=== PATIENT | male | born 1940 | race Caucasian/White ===

== ENCOUNTER 2023-01-21 08:21 | Outpatient (OUT) | payer MEDICARE, BC, SELFPAY ==
[2023-01-21 10:38] LABS: Prostate Specific Antigen Dx 0.34 ng/mL (<=4.00)
== END 2023-01-21 08:22 | disposition home or self-care (01) ==
LOC: LAB 08:27
PROVIDERS: PCP Family Medicine
DX: N40.1 Benign prostatic hyperplasia with lower urinary tract symptoms (principal)
CPT/HCPCS: 36415; 84153

== ENCOUNTER 2023-06-29 22:27 | Emergency (ER) | payer MEDICARE, BC, SELFPAY ==
[2023-06-29 22:30] VITALS: BP 157/80; PULSE 73; RESP 20; TEMP 36.6; O2SAT 93; BMI 28.6
[2023-06-29] MEDS: ADACEL DIPH,PERTUSS(ACELL),TET VAC/PF 0.5 ML ADULT SYRINGE IM (23:16)
[2023-06-29] MEDS: LIDOCAINE HCL 1% 100 MG/10 ML MDV 20 ML INJ (23:17)
--- NOTE | 2023-06-29 23:22 | ED_ITS ---
HPI - Wound/Laceration General Chief Complaint: Wound/Laceration Stated Complaint: Laceration Left Leg Time Seen by Provider: 06/29/23 22:31 Source: patient Mode of arrival: walk-in Limitations: no limitations History of Present Illness HPI narrative: 82-year-old male presents for lacerations to the posterior left thigh sustained on a sharp edge of sheet metal. This happened an hour and a half ago. There is bleeding that was controlled with pressure and dressings were applied and home and he was brought here. His last tetanus shot was more than ten years ago. No other wound was sustained. Related Data Previous Rx's Medication Instructions Recorded cephalexin 500 mg capsule 500 mg PO TID 7 days #21 caps 06/29/23 Allergies Allergy/AdvReac Type Severity Reaction Status Date / Time Sulfa (Sulfonamide Allergy Intermediate Verified 06/29/23 22:35 Antibiotics) Review of Systems ROS Narrative A ten point review of systems is negative except as noted above. Exam Narrative Exam Narrative: Nurses note and vital signs reviewed and patient is not hypoxic. General: The patient appears well and in no apparent distress. Skin: Warm, dry, no pallor noted. There is no rash noted. Head: Normocephalic, atraumatic Eye: Normal conjunctiva, no drainage Ears, Nose, Mouth, and Throat: oral mucosa is moist. Nares patent. Cardiovascular: not tachycardic Respiratory: Patient is in no distress, no accessory muscle use Back: non-tender GI: nontender Musculoskeletal: left middle finger has superficial abrasion on the finger pad. Left posterior thigh shows two lacerations each 10 cm in length. The more superior one is quite superficial and does not require sutures and is 10 cm in l ength. Parallel to it, and just distal, is another 10 cm laceration of which the lateral 6 cm is gaping and requires closure. Neurological: A&O, normal speech; he has frequent movements from Parkinson's Psychiatric: Cooperative Constitutional Vital Signs, click to edit/add: Last Vital Signs Temp 98 F 06/29/23 22:30 Pulse 73 06/29/23 22:30 Resp 20 06/29/23 22:30 BP 157/80 H 06/29/23 22:30 Pulse Ox 93 L 06/29/23 22:30 Course Vital Signs Vital signs: Vital Signs Temperature 98 F 06/29/23 22:30 Pulse Rate 73 06/29/23 22:30 Respiratory Rate 20 06/29/23 22:30 Blood Pressure 157/80 H 06/29/23 22:30 Pulse Oximetry 93 L 06/29/23 22:30 Temperature 98 F 06/29/23 22:30 Pulse Rate 73 06/29/23 22:30 Respiratory Rate 20 06/29/23 22:30 Blood Pressure 157/80 H 06/29/23 22:30 Pulse Oximetry 93 L 06/29/23 22:30 MDM - Wound/Laceration MDM Narrative Medical decision making narrative: He was advised to have a wound check later this week and sutures out in 7-10 days. He is placed on a course of prophylactic Keflex because of the location. Tetanus is also updated. Treatment diagnosis and follow-up were discussed with the patient and his family. Differential Diagnosis Differential diagnosis: Likely laceration Discharge Plan Discharge Chief Complaint: Wound/Laceration Clinical Impression: Laceration Patient Disposition: Home, Self-Care Time of Disposition Decision: 23:20 Condition: Good Mode of Transportation: Private Vehicle Prescriptions / Home Meds: New cephalexin 500 mg capsule 500 mg PO TID 7 Days Qty: 21 0RF Instructions: Care For Your Stitches (ED), Laceration (ED) Additional Instructions: Wound check this week from her PCP. Stitches out in 7-10 days. Stand Alone Forms: Portal Instructions Referrals: RAUL DUMONT [Primary Care Provider] - 1 week Procedures ED Procedure Instructions Procedures Procedures: the following procedure was performed by me. The laceration was locally infiltrated with one percent lidocaine without epinephrine resulting in complete skin anesthesia. The area was prepped with Betadine ?3 and draped sterilely. It was explored for foreign bodies normal found and then closed with seven 3-0 Ethilon sutures resulting in good skin reapproximation and good hemostasis. No complications and he tolerated the procedure well.
--- NOTE | 2023-06-29 23:31 | PC.NURSE ---
Wound cleansed and dressing applied. Discussed discharge paperwork with pt and family. All questions answered. Script sent to pharmacy. Supplies provided to pt. Pt ambulated off unit in stable condition.
[2023-06-29] MEDS: BACITRACIN 0.9 GM PACKET 1 PACKET TOPICAL (23:35)
== END 2023-06-29 23:37 | disposition home or self-care (01) ==
PROVIDERS: Emergency Provider Emergency Medicine; PCP Family Medicine
DX: S71.112A Laceration without foreign body, left thigh, initial encounter (principal); Z23 Encounter for immunization; W26.8XXA Contact with other sharp object(s), not elsewhere classified, initial encounter
CPT/HCPCS: 12002; 90471; 90715; 99283

== ENCOUNTER 2024-01-17 14:46 | Outpatient (OUT) | payer MEDICARE, BC, SELFPAY ==
[2024-01-17 15:47] LABS: Prostate Specific Antigen Dx 0.24 ng/mL (<=4.00)
== END 2024-01-17 14:47 | disposition home or self-care (01) ==
LOC: LAB 14:48
PROVIDERS: PCP Family Medicine; Visit Provider Physician Assistant
DX: N40.1 Benign prostatic hyperplasia with lower urinary tract symptoms (principal)
CPT/HCPCS: 36415; 84153

== ENCOUNTER 2024-02-04 20:30 | Emergency (ER) | payer MEDICARE, BC, SELFPAY ==
--- NOTE | 2024-02-04 20:20 | ECG_ITS ---
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
--- OUTSIDE RECORDS SUMMARY | 2024-02-04 20:37 | XMS_ITS | CCD ---
Author Organization [facility] Care Team Providers Care [employer] Officer Name Role Phone Raul Dumont DO Primary Care Provider Floyd Spaulding MD Unavailable [phone] JULIA, DR RAUL Uribe Primary Care Unavailable BENEJEANNECT, DR WINN Admitting Unavailable BENEDICT, DR WINN Consulting Unavailable BENEDICT, DR WINN Attending Unavailable RICE, DR OSMEL Mccray Attending Unavailable JULIA, DR RAUL Uribe Primary Care Unavailable RICE, DR OSMEL Mccray Admitting Unavailable RICE, DR OSMEL Mccray Consulting Unavailable DO Raul Dumont Primary Care Provider MD Raghav Hubbard Attending Provider Raul Dumont DO Primary Care Provider Floyd Spaulding MD Unavailable [phone] Raul DUMONT Primary Care Physician Raul Dumont DO Primary Care Provider Floyd Spaulding MD Unavailable [phone] Savanna Zhang MD Unavailable Brain Nieves MD Unavailable Kostas Philip DO Unavailable Floyd Spaulding MD Unavailable Savanna Zhang MD Unavailable Brain Nieves MD Unavailable Raul DUMONT Primary Care Physician Lisa Archibald Unavailable Raul Dumont DO Primary Care Provider Clara Cobian Unavailable Floyd Spaulding MD Unavailable Nura FAUSTIN, Savanna Unavailable Julia MOROCHO Raul S Primary Care Provider FLOYD SPAULDING Referring Unavailable FLOYD SPAULDING Attending Unavailable JULIA, RAUL S Primary Care Unavailable JUNE, CHAITANYA Attending Unavailable SELF Referring Unavailable JULIA, RAUL S Primary Care Unavailable JUNE, CHAITANYA Attending Unavailable JULIA, RAUL S Primary Care Unavailable NIEVES, BRAIN Attending Unavailable NIEVES, BRAIN Admitting Unavailable JULIA, RAUL S Primary Care Unavailable NEIVES, BRAIN Referring Unavailable JUNE, CHAITANYA Attending Unavailable JULIA, RAUL S Primary Care Unavailable JUNE, TOMMYER Referring Unavailable JUNE, CHAITANYA Attending Unavailable JULIA, RAUL S Primary Care Unavailable JUNE, CHAITANYA Referring Unavailable JULIA, RAUL S Primary Care Unavailable NIEVES, BRAIN Attending Unavailable NIEVES, BRAIN Referring Unavailable NIEVES, BRAIN Admitting Unavailable JULIA, RAUL S Primary Care Unavailable NIEVES, BRAIN Attending Unavailable NIEVES, BRAIN Referring Unavailable NIEVES, BRAIN Admitting Unavailable JULIA, RAUL S Primary Care Unavailable NIEVES, BRAIN Attending Unavailable NIEVES, BRAIN Referring Unavailable NIEVES, BRAIN Admitting Unavailable JULIA, RAUL S Primary Care Unavailable JULIA, RAUL S Primary Care Unavailable MARY JO OLVERA Attending Unavailable NIEVES, BRAIN Attending Unavailable JULIA, RAUL S Primary Care Unavailable NIEVES, BRAIN Admitting Unavailable NIEVES, BRAIN Referring Unavailable NIEVES, BRAIN Referring Unavailable NIEVES, BRAIN Attending Unavailable JULIA, RAUL S Primary Care Unavailable NIEVES, BRAIN Admitting Unavailable JULIA, RAUL S Primary Care Unavailable KOSTAS PHILIP Attending Unavailable KOSTAS PHILIP Admitting Unavailable NIEVES, BRAIN Attending Unavailable NIEVES, BRAIN Admitting Unavailable NIEVES, BRAIN Referring Unavailable JULIA, RAUL S Primary Care Unavailable NIEVES, BRAIN Attending Unavailable NIEVES, BRAIN Referring Unavailable NIEVES, BRAIN Admitting Unavailable JULIA, RAUL S Primary Care Unavailable NIEVES, BRAIN Referring Unavailable JULIA, RAUL S Primary Care Unavailable NIEVES, BRAIN Attending Unavailable NIEVES, BRAIN Referring Unavailable NIEVES, BRAIN Admitting Unavailable JULIA, RAUL S Primary Care Unavailable NIEVES, BRAIN Attending Unavailable NIEVES, BRAIN Referring Unavailable NIEVES, BRAIN Admitting Unavailable JULIA, RAUL S Primary Care Unavailable NIEVES, BRAIN Attending Unavailable BRAIN NIEVES Admitting Unavailable JULIA, RAUL S Primary Care Unavailable BRAIN NIEVES Referring Unavailable CHAITANYA WATKINS Attending Unavailable JULIA, RAUL S Primary Care Unavailable JULIA, RAUL S Primary Care Unavailable FLOYD SPAULDING Referring Unavailable FLOYD SPAULDING Attending Unavailable BRAIN NIEVES Attending Unavailable SAVANNA ZHANG Referring Unavailable SILVIA, BRAIN Admitting Unavailable JULIA, RAUL S Primary Care Unavailable CHAITANYA WATKINS Referring Unavailable JULIA, RAUL S Primary Care Unavailable BARBARA WARNER Attending Unavailable HUGO SOLANO Referring Unavailable JULIA, RAUL S Primary Care Unavailable JULIA, RAUL S Referring Unavailable JULIA, RAUL S Primary Care Unavailable Jh Rosario Attending Unavailable JULIA, Raul Uribe Attending Unavailable MP MARTINEZ Attending Unavailable Osmel GARCIA Attending Unavailable CHANTEL, IVONNE Hernandez Attending Unavailable CHANTEL, IVONNE Hernandez Attending Unavailable HAYDEN, PARADISE Lentz Attending Unavailable DELBERT HAWKINS Attending Unavailab le JULIA, RAUL Referring Unavailable PETMARY, PARADISE Lentz Attending Unavailable Allergies Allergy Classification Reported Allergen(s) Allergy Type Date of Onset Reaction(s) Facility (20 sources) Grass pollen; Translations: [GRASS POLLEN] Drug Allergy 7 Unknown [facility] (20 sources) Mometasone; Translations: [MOMETASONE] Drug Allergy 4 Other: See Comments [facility] Work Phone: (20 sources) predniSONE; Translations: [prednisone] Drug Allergy 3 Mental Status Change [facility] (20 sources) Sulfonamides (Antibiotic); Translations: [SULFA (SULFONAMIDE ANTIBIOTICS)] Drug Allergy 6 Unknown [facility] Work Phone: (1 source) Sulfonamides (Antibiotic) Drug allergy (disorder) 7 [facility] (6 sources) Sulfamethoxazole; Translations: [sulfamethoxazole ] Drug Allergy [facility] Medications Current Medications Medication Drug Class(es) Dates Sig (Normalized) Sig (Original) acetaminophen 325 mg oral tablet (20 sources) Start: 12-09-2022 take 2 tablets by mouth every four hours as needed acetaminophen (TYLENOL) 325 mg tablet Take 2 tablets by mouth every 4 hours as needed (post-op pain). 0 12/09/2022 Active Start: 06-25-2020 End: 12-03-2022 take 2 tablets by mouth every six hours as needed acetaminophen (TYLENOL EXTRA STRENGTH) 500 mg tablet Take 2 tablets by mouth every 6 hours as needed for Pain. 0 06/25/2020 12/03/2022 Discontinued (Course of therapy completed) Comment on above: Take 2 tablets by mo uth every 6 hours as needed for Pain. Take 2 tablets by mo uth every 4 hours as needed (post-op pain). Ascorbic Acid / Bioflavonoids (20 sources) Vitamin C ascorbic acid/bioflavonoids (MONIQUE C ORAL) Take by mouth once daily. 0 Active Comment on above: Take by mouth once d aily. atorvastatin 10 mg oral tablet (20 sources) HMG-CoA Reductase Inhibitor Start: 7 End: take 1 tablet by mouth once daily atorvastatin (LIPITOR) 10 mg tablet TAKE 1 TABLET BY MOUTH EVERY DAY 90 tablet 3 10/06/2022 Active Start: 03-14-2010 take 20 mg by mouth once daily at bedtime Lipitor 20 mg, Oral, Once a day (at bedtime), Refills(s) 0, High cholesterol Start Date: 03/14/10 Status: Ordered Comment on above: TAKE 1 TABLET EVERY DAY TAKE 1 TABLET BY TASHA EVERY DAY Back Brace (2 sources) Start: 01-24-20 20 Back Brace Back Brace, See Instructions, 1 EA, 0, For wear while exercising and working to improve ability to work and be acive thus improving quality of life. Lenght of need is lifetime., Supply Start Date: 01/24/20 Status: Ordered carbidopa 10 mg / levodopa 100 mg oral tablet (1 source) Aromatic Amino Acid Decarboxylation Inhibitor, Aromatic Amino Acid Start: 11-04-19 24 take 1 tablet by mouth three times daily Carbidopa-Levodopa Active 1 TAB PO Three times daily November 04, 2023 12:00am celecoxib 200 mg oral capsule (1 source) Nonsteroidal Anti-inflammatory Drug Start: 11-04-19 24 take 200 mg by mouth once daily Celecoxib Active 200 MG PO Daily November 04, 2023 12:00am clotrimazole 10 mg/ml topical cream (4 sources) Azole Antifungal Start: 10-22-19 clotrimazole Top 1% Crm 1 dale, Topical, BID, 24 gram, Refill(s) 1, [facility]/pharmacy #[id number], 178, cm, 10/21/22 10:47:00 EDT, Height/Length Dosing, 91.4, kg, 10/21/22 10:47:00 EDT, Weight Dosing Start Date: 10/21/22 Status: Ordered Start: 07-20-2022 clotrimazole T op 1% Crm 1 dale, Topical, BID, 24 gram, Refill(s) 1, [facility]/pharmacy #[id number], 178, cm, 07/20/22 14:05:00 EST, Height/Length Dosing, 91.3, kg, 07/20/22 14:05:00 EST, Weight Dosing Start Date: 07/20/22 Status: Ordered Co Q-10 (5 sources) Start: 10-20-2018 take 1 tablet by mouth once daily Co Q-10 See Instructions, 1 tab po daily, Refills(s) 0 Start Date: 10/20/18 Status: Ordered diclofenac sodium 0.01 mg/mg topical gel (1 source) Nonsteroidal Anti-inflammatory Drug Start: 11-04-2023 Diclofenac Sodium Active TOPICAL November 04, 2023 12:00am docusate sodium 100 mg oral capsule (16 sources) Start: 12-16-2022 take 1 capsule by mouth every twelve hours as needed docusate sodium (COLACE) 100 mg capsule Take 1 capsule by mouth twice daily as needed for constipation. 0 12/16/2022 Active Comment on above: Take [address] [facility] twice daily as needed for constipation. escitalopram 10 mg oral tablet (20 sources) Serotonin Reuptake Inhibitor Start: 11-04-2023 take 10 mg by mouth once daily Escitalopram Oxalate Active 10 MG PO Daily November 04, 2023 12:00am Start: 02-12-2020 take 1 tablet by tasha once daily escitalopram oxalate (LEXAPRO) 5 mg tablet TAKE 1 TABLET BY MOUTH ONE TIME A DAY 0 02/12/2020 Active Comment on above: TAKE 1 TABLET BY TASHA ONE TIME A DAY finasteride 5 mg oral tablet (20 sources) 5-alpha Reductase Inhibitor Start: 0 finasteride (PROSCAR) 5 mg tablet furosemide 20 mg oral tablet (18 sources) Loop Diuretic Start: 3 End: 3 take 1 tablet by mouth once daily furosemide (LASIX) 20 mg tablet Take 1 tablet by mouth once daily for 7 days. 7 tablet 0 12/09/2022 Active Comment on above: Take 1 tablet by tasha once daily for 7 days. gabapentin 300 mg oral capsule (1 source) Anti-epileptic Agent Start: 4 take 300 mg by mouth once daily at bedtime Gabapentin Active 300 MG PO Daily at bedtime November 04, 2023 12:00am losartan potassium 25 mg oral tablet (20 sources) Angiotensin 2 Receptor Demario Start: 9 take 25 mg by mouth once daily Losartan Active 25 MG PO Daily July 11, 2018 1:00am Comment on above: Take 25 mg by mouth once daily. lysine 500 mg oral tablet (20 sources) lysine 500 mg ta b Take by mouth. 0 Active Comment on above: Take by mouth. melatonin 5 mg oral tablet (5 sources) Start: 3 take 1 tablet by mouth once daily at bedtime melatonin 5 mg oral tablet 5 mg = 1 tab(s), Oral, Once a day (at bedtime), # 90 tab(s), Refills(s) 1, Pharmacy: [facility]/pharmacy #[id number], 178, cm, 10/21/22 10:47:00 EDT, Height/Length Dosing, 91.4, kg, 10/21/22 10:47:00 EDT, Weight Dosing Start Date: 10/28/22 Status: Ordered Start: 04-22-2022 Melatonin 20 m g, Once a day (at bedtime), Refills(s) 0 Start Date: 04/22/22 Status: Ordered memantine hydrochloride 5 mg oral tablet (1 source) X-uysseh-A-aspartate Receptor Antagonist Start: 11-04-2023 take 5 mg by mouth twice daily Memantine Active 5 MG PO Twice daily November 04, 2023 12:00am 24 hr metoprolol succinate 25 mg extended release oral tablet (20 sources) beta-Adrenergic Demario Start: 11-04-2023 Metoprolol Succinate Active MG PO November 04, 2023 12:00am Start: 01-25-2023 End: 07-08-2023 take 1 tablet by mouth once daily metoprolol succinate ER (TOPROL XL) 25 mg 24 hr tablet Take 1 tablet by mouth once daily. 90 tablet 3 07/08/2023 Active Start: 01-14-2023 take 1 tablet by tasha th once daily metoprolol succinate ER (TOPROL XL) 25 mg 24 hr tablet Take 1 tablet by mouth once daily. 90 tablet 1 01/14/2023 Active Start: 12-09-2022 End: 01-14-2023 take 1 tablet by mouth twice daily metoprolol succinate ER (TOPROL XL) 50 mg 24 hr tablet Take 1 tablet by mouth twice daily. 60 tablet 1 12/09/2022 01/14/2023 Discontinued Comment on above: Take 1 tablet by tasha th twice daily. Take 1 tablet by tasha th once daily. Take [address] [facility] once daily. MULTIVITAMIN ORAL (20 sources) MULTIVITAMIN ORA L Take by mouth once daily. 0 Active Comment on above: Take by mouth once d aily. pantoprazole 40 mg delayed release oral tablet (20 sources) Proton Pump Inhibitor Start: 11-04-2023 Pantoprazole Active MG PO November 04, 2023 12:00am Start: 07-05-2017 take 1 tablet by tasha th once daily pantoprazole DR (PROTONIX) 40 mg tablet Indications: gastroesophageal reflux disease Take 1 tablet by mouth once daily. 30 tablet 5 07/05/2017 Active Comment on above: Take 1 tablet by tasha th once daily. QUEtiapine 25 mg oral tablet (1 source) Atypical Antipsychotic Start: 11-04-19 24 take 25 mg by mouth twice daily Quetiapine Active 25 MG PO Twice daily November 04, 2023 12:00am rivaroxaban 20 mg oral tablet (20 sources) Factor Xa Inhibitor Start: 02-11-20 17 take 1 tablet by mouth once daily rivaroxaban (XARELTO) 20 mg tablet Take 1 tablet by mouth once daily. 90 tablet 3 06/10/2023 Active Comment on above: TAKE 1 TABLET BY TASHA TH ONCE DAILY. PLEASE CALL THE OFFICE FOR AN APPOINTMENT. Take 1 tablet by tasha th once daily. UBIDECARENONE (CO Q-10 ORAL) (20 sources) UBIDECARENONE (C O Q-10 ORAL) Take by mouth. Patient unsure of dosage Chews two gummies a day 0 Active Comment on above: Take by mouth. Patie nt unsure of dosage Chews two gummies a day Vitamin E Acetate, Bulk, 125 unit/mL liqd (20 sources) Vitamin E Acetat e, Bulk, 125 unit/mL liqd Completed/Discontinued Medications Medication Drug Class(es) Dates Sig (Normalized) Sig (Original) amoxicillin 875 mg / clavulanate 125 mg oral tablet (2 sources) Penicillin-class Antibacterial Start: 11-03-2020 take 1 tablet by mouth every twelve hours Amoxicillin-Pot Clavulanate 875-125 MG 1 tablet Orally every 12 hrs for 10 day(s) October, Not-Taking/PRN aspirin 81 mg chewable tablet (6 sources) Platelet Aggregation Inhibitor, Nonsteroidal Anti-inflammatory Drug Start: 12-10-2022 End: 01-14-2023 take 1 tablet by mouth once daily aspirin 81 mg chewable tablet Take 1 tablet by mouth once daily. 90 tablet 0 12/10/2022 01/14/2023 Discontinued Comment on above: Take 1 tablet by tasha once daily. docusate sodium 50 mg / sennosides, alf 8.6 mg oral tablet (6 sources) Start: 12-09-2022 End: 01-14-2023 take 1 tablet by mouth twice daily as needed for constipation senna-docusate (SENNA-S) 8.6-50 mg per tablet Take 1 tablet by mouth twice daily. Continue while as needed thereafter for mild post-op constipation & stool softening. 28 tablet 0 12/09/2022 01/14/2023 Discontinued Comment on above: Take 1 tablet by tasha twice daily. Continue while as needed thereafter for mild post-op constipation & stool softening. fluticasone propionate 0.05 mg/actuat metered dose nasal spray (2 sources) Corticosteroid Start: 11-03-2020 take 1 spray(s) nasal route once daily as needed Fluticasone Propionate 50 MCG/ACT 1 spray in each nostril Nasally Once a day for 30 day(s) October, Not-Taking/PRN Start: 11-03-2020 take 1 spray(s) nasa l route once daily Fluticasone Propionate 50 MCG/ACT 1 spray in each nostril Nasally Once a day for 30 day(s) October, Not-Taking Fluticasone Furoate-Vilanterol (2 sources) Corticosteroid, beta2-Adrenergic Agonist Start: 02-10-2017 End: 07-23-2018 take 1 puff(s) by inhalation once daily Fluticasone Furoate-Vilanterol (Breo Ellipta) 200-25 mcg/dose blister with device Discontinued 1 PUFF INHALATION Daily February 10, 2017 12:00am July 23, 2018 11:55pm mag [id number] rt xt 500-3,000-150 mg-unit-mg tab (18 sources) End: 01-14-2023 mag [id number] rt xt 500-3,000-150 mg-unit-mg tab Take by mouth. 0 01/14/2023 Discontinued mag [id number] meric rt xt 500-3,000-150 mg-unit-mg tab Take by mouth. 0 Active Comment on above: Take by mouth. magnesium hydroxide 80 mg/ml oral suspension (3 sources) Start: 12-17-19 End: 01-15-20 take 30 mL by mouth once daily as needed magnesium hydroxide (MOM) 400 mg/5 mL suspension Take 30 mL by mouth once daily as needed. 0 12/16/2022 01/14/2023 Discontinued Comment on above: Take 30 mL by mouth once daily as needed. metaxalone 800 mg oral tablet (2 sources) Start: 07-11-19 End: 07-23-19 19 take 1 tablet by mouth three times daily Metaxalone (Skelaxin) 800 mg Tablet Discontinued 800 MG PO Three times daily July 11, 2018 1:00am July 23, 2018 11:54pm montelukast 10 mg oral tablet (2 sources) Leukotriene Receptor Antagonist Start: 02-11-20 End: 07-11-19 19 take 1 tablet by mouth once daily Montelukast Discontinued 1 TAB PO Daily February 10, 2017 12:00am July 11, 2018 5:39am mupirocin 0.02 mg/mg topical ointment (1 source) RNA Synthetase Inhibitor Antibacterial Start: 12-04-19 mupirocin (BACTROBAN) 2 % ointment Apply a small amount in each nostril using a cotton swab twice the day before surgery and once the morning of surgery. 22 g 0 12/03/2022 Active Comment on above: Apply a small amount in each nostril using a cotton swab twice the day before surgery and once the morning of surgery. perflutren lipid microspheres 1.3 mL in NaCl (PF) 0.9% 10 mL injection (DEFINITY) (20 sources) Start: 04-02-20 End: 12-04-19 perflutren lipid microspheres 1.3 mL in NaCl (PF) 0.9% 10 mL injection (DEFINITY) Start: 04-02-2022 End: 07-02-2023 perflutren lipid microsphere s 1.3 mL in NaCl (PF) 0.9% 10 mL injection (DEFINITY) Start: 02-16-2022 End: 12-03-2022 perflutren lipid microsphere s 1.3 mL in NaCl (PF) 0.9% 10 mL injection (DEFINITY) Start: 02-16-2022 End: 05-18-2023 perflutren lipid microsphere s 1.3 mL in NaCl (PF) 0.9% 10 mL injection (DEFINITY) Start: 02-04-2021 End: 05-06-2022 perflutren lipid microsphere s 1.3 mL in NaCl (PF) 0.9% 10 mL injection (DEFINITY) polyethylene glycol 3350 99022 mg powder for oral solution (9 sources) Osmotic Laxative Start: 12-16-2022 polyethylene glycol 3350 (MIRALAX) 17 gram/dose powder Take 17 g by mouth once daily. Dissolve dose in 4 - 8 ounces of liquid and take as directed. 0 12/16/2022 Active Comment on above: Take 17 g by mouth o nce daily. Dissolve dose in 4 - 8 ounces of liquid and take as directed. potassium chloride 10 meq extended release oral tablet (4 sources) Start: 12-09-2022 End: 12-16-2022 take 1 tablet by mouth once daily potassium chloride (K-TAB) 10 mEq tablet Take 1 tablet by mouth once daily for 7 days. 7 tablet 0 12/09/2022 12/16/2022 Comment on above: Take 1 tablet by [facility] once daily for 7 days. 125 ml sodium chloride 9 mg/ml prefilled syringe (20 sources) Start: 02-04-2021 End: 10-05-2023 sodium chloride 0.9 %, flush, (BD POSIFLUSH) syringe Inject 2-10 mL intravenously as directed. For Echo procedure 10 mL 0 10/05/2022 12/03/2022 Discontinued (Course of therapy completed) Comment on above: Inject 2-10 mL intra venously as directed. For Echo procedure tamsulosin hydrochloride 0.4 mg oral capsule (2 sources) alpha-Adrenergic Demario Start: 02-10-2017 End: 07-23-2018 take 1 tablet by mouth once daily at bedtime Tamsulosin Discontinued 1 TAB PO Daily at bedtime February 10, 2017 12:00am July 23, 2018 11:54pm Triamcinolone (2 sources) Corticosteroid Start: 07-16-2020 triamcinolone Top 0.1% Crm See Instructions, 80 gm, Refill(s) 1, Apply topically BID to affected area as needed, [facility]/pharmacy #[id number], 177.8, cm, 07/16/20 10:42:00 EST, Height/Length Dosing, 91.3, kg, 07/16/20 10:42:00 EST, Weight Dosing Start Date: 07/16/20 Status: Ordered Start: 07-16-2020 triamcinolone Top 0.1% Crm See Instructions, 80 gm, Refill(s) 1, Apply topically BID to affected area as needed, [facility]/pharmacy #[id number], 177.8, cm, 07/16/20 10:42:00 EST, Height/Length Dosing, 91.3, kg, 07/16/20 10:42:00 EST, Weight Dosing Start Date: 07/16/20 Status: Ordered valACYclovir 500 mg oral tablet (17 sources) Herpesvirus Nucleoside Analog DNA Polymerase Inhibitor, Herpes Simplex Virus Nucleoside Analog DNA Polymerase Inhibitor, Herpes Zoster Virus Nucleoside Analog DNA Polymerase Inhibitor Start: 02-20-2020 End: 12-03-2022 valACYclovir (VALTREX) 500 mg tablet Problems Active Problems Problem Classification Problem Date Documented Da te Episodic/Chronic Acute cerebrovascular disease (20 sources) Cerebrovascular accident; Translations: [Cerebral infarction, unspecified] 11-15-2012 Chronic Administrative/social admission (2 sources) Patient encounter status; Translations: [Other specified counseling] Episodic Anxiety disorders (20 sources) Anxiety; Translations: [Anxiety disorder, unspecified] Onset: 4 06-26-2013 Chronic Asthma (20 sources) Asthma; Translations: [Unspecified asthma, uncomplicated] 06-02-2021 Chronic Cardiac dysrhythmias (20 sources) Paroxysmal atrial fibrillation; Translations: [Paroxysmal atrial fibrillation] Onset: 2 10-31-2015 Chronic Coagulation and hemorrhagic disorders (19 sources) Thrombocytopenic disorder; Translations: [Thrombocytopenia, unspecified] Onset: 3 12-07-2022 Chronic Congestive heart failure; nonhypertensive (19 sources) Acute on chronic diastolic heart failure; Translations: [Acute on chronic diastolic (congestive) heart failure] Onset: 3 12-07-2022 Chronic Diseases of mouth; excluding dental (1 source) Glossitis Episodic Disorders of lipid metabolism (20 sources) Hyperlipidemia; Translations: [Hyperlipidemia, unspecified] Onset: 2 Chronic Esophageal disorders (20 sources) Gastroesophageal reflux disease without esophagitis; Translations: [Gastro-esophageal reflux disease without esophagitis] Onset: 2 Chronic Essential hypertension (20 sources) Hypertensive disorder; Translations: [Essential (primary) hypertension] Onset: 2 03-05-2014 Chronic Heart valve disorders (20 sources) Aortic stenosis, non-rheumatic ; Translations: [Nonrheumatic aortic (valve) stenosis] Onset: 3 Chronic Hyperplasia of prostate (20 sources) Benign prostatic hypertrophy with outflow obstruction; Translations: [Benign prostatic hyperplasia with lower urinary tract symptoms] Onset: 7 05-02-2007 Chronic Malignant neoplasm without specification of site (20 sources) Malignant neoplastic disease; Translations: [Malignant (primary) neoplasm, unspecified] 06-02-2021 Chronic Melanomas of skin (20 sources) Melanoma in situ of upper limb; Translations: [Melanoma in situ of left upper limb, including shoulder] Onset: 1 06-19-2020 Chronic Mycoses (7 sources) Onychomycosis; Translations: [Tinea unguium] Episodic Nausea and vomiting (2 sources) Nausea and vomiting; Translations: [Nausea with vomiting, unspecified] 02-10-2017 Episodic Other acquired deformities (1 source) Equinus contracture of the ankle; Translations: [Contracture, unspecified ankle] 05-12-2023 Chronic Other aftercare (1 source) Surgical follow-up; Translations: [Encounter for follow-up examination after completed treatment for conditions other than malignant neoplasm] 12-16-2022 Episodic Other aftercare (1 source) Encounter for other specified aftercare Episodic Other and ill-defined heart disease (20 sources) Cardiomegaly; Translations: [Cardiomegaly] Onset: 3 06-02-2021 Chronic Other connective tissue disease (8 sources) Pain of toes of bilateral feet; Translations: [Pain in right toe(s)] Episodic Other connective tissue disease (1 source) Bilateral metatarsalgia; Translations: [Metatarsalgia, right foot] 05-12-2023 Episodic Other gastrointestinal disorders (20 sources) Irritable bowel syndrome; Translations: [Irritable bowel syndrome without diarrhea] Onset: 5 06-15-2014 Chronic Other gastrointestinal disorders (5 sources) Constipation 01-04-2019 Episodic Other hereditary and degenerative nervous system conditions (20 sources) Myoclonus; Translations: [Myoclonus] Onset: 4 02-26-2014 Chronic Other lower respiratory disease (3 sources) Cough 10-21-2022 Episodic Other male genital disorders (1 source) Disorder of skin of penis; Translations: [Other disorders of prepuce] Onset: 3 Episodic Other nervous system disorders (1 source) Other chronic pain; Translations: [Other chronic pain] Onset: 4 Chronic Other nervous system disorders (1 source) Tremor, unspecified; Translations: [TREMOR UNSPECIFIED] Onset: 2 Episodic Other nervous system disorders (1 source) Unspecified abnormalities of gait and mobility; Translations: [UNS ABNORMALITIES GAIT AND MOBILITY] Onset: 2 Episodic Other non-traumatic joint disorders (1 source) Pain in right knee; Translations: [Pain in right knee] Onset: 4 Episodic Other nutritional; endocrine; and metabolic disorders (1 source) Overweight in adulthood with body mass index of 25 or more but less than 30; Translations: [Body mass index (BMI) 28.0-28.9, adult] Onset: 3 Episodic Other screening for suspected conditions (not mental disorders or infectious disease) (1 source) Procedure carried out on subject; Translations: [Encounter for screening for other disorder] Onset: 2 Episodic Other skin disorders (4 sources) Eruption; Translations: [Rash and other nonspecific skin eruption] Onset: 3 Episodic Peripheral and visceral atherosclerosis (20 sources) Atherosclerosis of aorta; Translations: [Atherosclerosis of aorta] Onset: 2 Chronic Comment on above: Added at request of Dr. Dumont. Rehabilitation care; fitting of prostheses; and adjustment of devices (20 sources) Patient encounter status; Translations: [Encounter for fitting and adjustment of other specified devices] Onset: 0 02-07-2010 Chronic Residual codes; unclassified (5 sources) Fidgeting 11-06-2021 Chronic Residual codes; unclassified (6 sources) Insomnia; Translations: [Insomnia, unspecified] Onset: 2 Episodic Residual codes; unclassified (1 source) History of repair of mitral valve; Translations: [Other specified postprocedural states] 12-15-2022 Episodic Superficial injury; contusion (9 sources) Contusion of rib; Translations: [Contusion of unspecified front wall of thorax, initial encounter] 06-27-2021 Episodic Transient cerebral ischemia (5 sources) Transient cerebral ischemia 03-14-2010 Chronic Unclassified (3 sources) Foreskin finding 02-16-2023 Past or Other Problems Problem Classification Problem Date Documented Date Episodic/Chronic Abdominal pain (20 sources) Abdominal pain; Translations: [Unspecified abdominal pain] Onset: 06-15-2014 06-15-2014 Episodic Acute posthemorrhagic anemia (3 sources) Acute posthemorrhagic anemia; Translations: [Acute posthemorrhagic anemia] Onset: 12-06-2022 Resolved: 12-07-2022 12-07-2022 Episodic Blindness and vision defects (20 sources) Blurring of visual image; Translations: [Other visual disturbances] Onset: 02-26-2014 02-26-2014 Episodic Cardiac and circulatory congenital anomalies (2 sources) H/O cardiac surgery; Translations: [Personal history of (corrected) congenital malformations of heart and circulatory system] Onset: 12-16-2022 12-15-2022 Episodic Complications of surgical procedures or medical care (3 sources) Cardiac insufficiency following cardiac surgery; Translations: [Postprocedural cardiac insufficiency following cardiac surgery] Onset: 12-04-2022 Resolved: 12-06-2022 12-06-2022 Chronic Conditions associated with dizziness or vertigo (20 sources) Dizziness and giddiness; Translations: [Dizziness and giddiness] Onset: 11-22-2008 11-22-2008 Episodic Diabetes mellitus without complication (3 sources) Metabolic stress hyperglycemia; Translations: [Hyperglycemia, unspecified] Onset: 12-04-2022 Resolved: 12-07-2022 12-07-2022 Episodic Fluid and electrolyte disorders (3 sources) Hypervolemia; Translations: [Fluid overload, unspecified] Onset: 12-05-2022 Resolved: 12-07-2022 12-07-2022 Episodic Nonspecific chest pain (20 sources) Chest pain; Translations: [Chest pain, unspecified] Onset: 06-06-2015 06-06-2015 Episodic Other aftercare (1 source) Encounter for follow-up examination after completed treatment for conditions other than malignant neoplasm; Translations: [Surgery follow-up] Onset: 12-16-2022 Episodic Other and unspecified benign neoplasm (20 sources) Pheochromocytoma; Translations: [Benign neoplasm of unspecified adrenal gland] Onset: 04-16-2014 04-16-2014 Episodic Other circulatory disease (20 sources) Elevated blood-pressure reading without diagnosis of hypertension; Translations: [Elevated blood-pressure reading, without diagnosis of hypertension] Onset: 02-26-2014 Resolved: 01-14-2023 02-26-2014 Episodic Other circulatory disease (20 sources) History of cerebrovascular accident; Translations: [Personal history of transient ischemic attack (TIA), and cerebral infarction without residual deficits] Onset: 12-03-2022 12-03-2022 Episodic Other circulatory disease (1 source) Other specified symptoms and signs involving the circulatory and respiratory systems; Translations: [Other specified symptoms and signs involving the circulatory and respiratory systems] Onset: 12-02-2022 Episodic Other connective tissue disease (20 sources) Pain in right foot; Translations: [Pain in right foot] Onset: 08-21-2014 08-21-2014 Episodic Other connective tissue disease (20 sources) Pain in limb; Translations: [Pain in unspecified limb] Onset: 08-21-2014 08-21-2014 Episodic Other lower respiratory disease (20 sources) Dyspnea; Translations: [Shortness of breath] Onset: 08-31-2013 08-31-2013 Episodic Other lower respiratory disease (2 sources) Shortness of breath; Translations: [SOB (shortness of breath)] Onset: 12-01-2022 Episodic Other nervous system disorders (19 sources) Word finding difficulty ; Translations: [Other speech disturbances] Onset: 12-06-2022 12-06-2022 Episodic Other nervous system disorders (3 sources) Postoperative pain ; Translations: [Other acute postprocedural pain] Onset: 12-04-2022 Resolved: 12-07-2022 12-07-2022 Episodic Other non-traumatic joint disorders (20 sources) Joint pain; Translations: [Pain in unspecified joint] Onset: 12-25-2009 12-25-2009 Episodic Pathological fracture (20 sources) Pathological fracture; Translations: [Pathological fracture, other site, initial encounter for fracture] Onset: 08-21-2014 08-21-2014 Episodic Pleurisy; pneumothorax; pulmonary collapse (3 sources) Atelectasis; Translations: [Atelectasis] Onset: 12-05-2022 Resolved: 12-07-2022 12-07-2022 Episodic Residual codes; unclassified (20 sources) History of radiofrequency ablation operation for arrhythmia; Translations: [Other specified postprocedural states] Onset: 12-03-2022 12-03-2022 Episodic Residual codes; unclassified (19 sources) Problem with continuity of care; Translations: [Problem with continuity of care] Onset: 12-07-2022 12-09-2022 Episodic Residual codes; unclassified (1 source) Pain, unspecified; Translations: [Pain] Onset: 05-12-2023 Episodic Residual codes; unclassified (1 source) Other specified postprocedural states; Translations: [S/P mitral valve repair] Onset: 12-16-2022 Episodic Respiratory failure; insufficiency; arrest (adult) (3 sources) Ventilator finding; Translations: [Dependence on respirator [ventilator] status] Onset: 12-04-2022 Resolved: 12-05-2022 12-05-2022 Chronic Results Test Name Value Interpretation Reference Range Facil ity XR KNEE RIGHT (1-2 VIEWS)on 12-06-2023 XR KNEE RIGHT (1-2 VIEWS) EXAMINATION: TWO XRAY VIEWS OF THE RIGHT KNEE 12/06/2023 10:32 am COMPARISON: None. HISTORY: ORDERING SYSTEM PROVIDED HISTORY: Chronic pain of right knee, Chronic pain of right knee TECHNOLOGIST PROVIDED HISTORY: Reason for exam:->pain What reading provider will be dictating this exam?->CRC FINDINGS: There is mild tricompartmental joint space narrowing. There may be a small joint effusion. Alignment is normal and cortices are intact. IMPRESSION: 1. Mild tricompartmental joint space narrowing. 2. Possible small joint effusion. Interpreted by: Rosalba Guzman MD Signed by: Rosalba Guzman MD 12/06/23 Final result Normal [facility] CNPNon 11-09-2023 CNPN Normal [facility] CNOVon 11-03-2023 CNOV Normal [facility] CNPNon 10-19-2023 CNPN Normal [facility] CNOVon 08-05-2023 CNOV Normal [facility] CNPNon 07-07-2023 CNPN Normal [facility] CNPNon 06-11-2023 CNPN Normal [facility] CNOVon 06-04-2023 CNOV Normal [facility] [id number] 06-04-2023 ECG01 Normal [facility] CNOVon 05-12-2023 CNOV Normal [facility] CNOV Normal [facility] XR FOOT 3V AP/LAT/OBL LTon 1 07-13-2022 XR FOOT 3V AP/LAT/OBL LT Normal [facility] Family Medicine Office/Clini c Noteon 05-10-2023 Family Medicine Office/Clinic Note Chief Complaint Subsequent AWV Review of Systems PHQ Score Initial Depression Screen Score: 0 SCORE Physical Exam Vitals & Measurements HR: 82(Peripheral) RR: 16 BP: 130/60 SpO2: 94% HT: 178 cm HT: 70 in WT: 92.9 kg WT: 204.38 lb BMI: 29.32 Assessment/Plan 1. Encounter for annual wellness visit (AWV) in Medicare patient (Z00.00: Encounter for general adult medical examination without abnormal findings) The patient was given a customized and personalized print out of all the current AHRQ USPSTF?s recommendations for preventative services and all current CDC recommended immunizations, relevant risk recommendations and the following patient brochures were given. Reviewed What can I expect during my Medicare preventative care visit [facility] [place] Prevention and home safety screening reviewed. Patient denies any falls in last 12 months, voices no worry about falling, exhibits no problems with sitting and standing. Pt voices understanding with keeping walk way area free of clutter to prevent tripping and/or falling. [place] Advance Directives reviewed, on file in chart. Patient denies any problems with ADL?s and Instrumental ADL?s. Cognitive screening completed with memory and clock face drawing. Immunization Record reviewed with the patient. Discussed Shingrix vaccine with educational handout and availability. COVID vaccines have been administered, immunization record is up to date. Allergies and medications reviewed and up to date. Patient denies concerns with taking medication as prescribed, reviewed OTC medications with patient with medication list up to date. Blood tests were reviewed: Discussed what tests need to be updated. Colonoscopy up to date, no repeat needed. Reviewed concerns with bladder control over past 6 months with no concerns. Reviewed pain symptoms with patient: Reviewed all outside providers that patient follows. Last visit summary notes available in chart and/or have been requested. Follow up scheduled 02/22/2024 AWV has been scheduled 05/09/2024 Medicare provides yearly screening for alcohol and depression concerns. This is completed during our Medicare wellness visit for those who do not have a current diagnosis of depression or concerns with alcohol use. I spent a total of 14 minutes on this date of service which included preparing to see the patient, face to face patient care, completing clinical documentation, obtaining and/or reviewing separately obtained history, counseling and educating the patient with handouts. Explanations were provided with reviewing questionnaires. AUDIT risk assessment screening completed, risk score (0) with patient denying concerns with use. Completed PHQ-2 risk assessment for depression with risk score (0), negative findings. Patient has been reminded to notify the provider if there would be a change or concerns with symptoms with fear, unable to sleep, worrying too much or feeling down and/or sad with lost of interest with daily activities. Will continue to monitor with screening yearly during Medicare wellness visits. 2. BMI 29.0-29.9,adult (Z68.29: Body mass index [BMI] 29.0-29.9, adult) The standard range for ages 18 and older is >=18.5 and < 25 kg/m2. Your BMI of 29.32 today was above this range, this falls in the overweight category and there are medical benefits to weight loss. BMI monitoring is helpful with identifying a weight problem that may be related to a medical condition, or may increase the risk for medical problems. Your BMI and weight management will be followed at subsequent visits with your provider and monitored for progress. GOAL: promoting healthier lifestyle with diet changes in order to reach a healthy weight. 3. Over weight (E66.3: Overweight) A combination of diet and exercise can help you lose the weight. Discussed weight loss benefits to dietary management and overall health with increased cardiovascular risks associated with waist measurement > 40 inches. Reminded pt importance to work on lowering current body weight with healthy dietary intake choices with understanding of portion control. Reviewed goals and patient's readiness with needing to make a healthier lifestyle change. Will work on increasing daily activity and prevent further weight gain. Will follow up with PCP during office visits for progress. 4. ATRIAL FIBRILLATION (I48.0: Paroxysmal atrial fibrillation) Patient denies having episodes with irregular or fast (rapid) heartbeat. Taking Xarelto daily as directed.. Denies concerns with increased fatigue and/or sudden change in weight. No pain to chest or belly region. Patients are at higher risk of this condition if you smoke, are older, have diabetes, or are overweight. Voices understanding with symptoms to monitor for and follow instructions about medicines, diet, exercise, and follow up visits. Patient follows up with [facility], last visit notes available in chart and have been reviewed. Cardiac Healthy Nutritional handout reviewed and provided for (more content not included)... [facility] Comment on above: Result Comment: Elec tronically Signed By: MP MARTINEZ CNP\.br\Date and Time Signed: 05/10/23 09:41 EST\.br\Electronically Co-Signed By: Tony Mueller LPN\.br\Date and Time Co-Signed: 05/07/23 14:43 EST Patient Educationon 05-07-20 23 Patient Education Cardiovascular Hypertension, Adult High blood pressure (hypertension) is when the force of blood pumping through the arteries is too strong. The arteries are the blood vessels that carry blood from the heart throughout the body. Hypertension forces the heart to work harder to pump blood and may cause arteries to become narrow or stiff. Untreated or uncontrolled hypertension can lead to a heart attack, heart failure, a stroke, kidney disease, and other problems. A blood pressure reading consists of a higher number over a lower number. Ideally, your blood pressure should be below 120/80. The first ( top ) number is called the systolic pressure. It is a measure of the pressure in your arteries as your heart beats. The second ( bottom ) number is called the diastolic pressure. It is a measure of the pressure in your arteries as the heart relaxes. What are the causes? The exact cause of this condition is not known. There are some conditions that result in high blood pressure. What increases the risk? Certain factors may make you more likely to develop high blood pressure. Some of these risk factors are under your control, including: ? Smoking. ? Not getting enough exercise or physical activity. ? Being overweight. ? Having too much fat, sugar, calories, or salt (sodium) in your diet. ? Drinking too much alcohol. Other risk factors include: ? Having a personal history of heart disease, diabetes, high cholesterol, or kidney disease. ? Stress. ? Having a family history of high blood pressure and high cholesterol. ? Having obstructive sleep apnea. ? Age. The risk increases with age. What are the signs or symptoms? High blood pressure may not cause symptoms. Very high blood pressure (hypertensive crisis) may cause: ? Headache. ? Fast or irregular heartbeats (palpitations). ? Shortness of breath. ? Nosebleed. ? Nausea and vomiting. ? Vision changes. ? Severe chest pain, dizziness, and seizures. How is this diagnosed? This condition is diagnosed by measuring your blood pressure while you are seated, with your arm resting on a flat surface, your legs uncrossed, and your feet flat on the floor. The cuff of the blood pressure monitor will be placed directly against the skin of your upper arm at the level of your heart. Blood pressure should be measured at least twice using the same arm. Certain conditions can cause a difference in blood pressure between your right and left arms. If you have a high blood pressure reading during one visit or you have normal blood pressure with other risk factors, you may be asked to: ? Return on a different day to have your blood pressure checked again. ? Monitor your blood pressure at home for 1 week or longer. If you are diagnosed with hypertension, you may have other blood or imaging tests to help your health care provider understand your overall risk for other conditions. How is this treated? This condition is treated by making healthy lifestyle changes, such as eating healthy foods, exercising more, and reducing your alcohol intake. You may be referred for counseling on a healthy diet and physical activity. Your health care provider may prescribe medicine if lifestyle changes are not enough to get your blood pressure under control and if: ? Your systolic blood pressure is above 130. ? Your diastolic blood pressure is above 80. Your personal target blood pressure may vary depending on your medical conditions, your age, and other factors. Follow these instructions at home: Eating and drinking ? Eat a diet that is high in fiber and potassium, and low in sodium, added sugar, and fat. An example of this eating plan is called the DASH diet. DASH stands for Dietary Approaches to Stop Hypertension. To eat this way: ? Eat plenty of fresh fruits and vegetables. Try to fill one half of your plate at each meal with fruits and vegetables. ? Eat whole grains, such as whole-wheat pasta, brown rice, or whole-grain bread. Fill about one fourth of your plate with whole grains. ? Eat or drink low-fat dairy products, such as skim milk or low-fat yogurt. ? Avoid fatty cuts of meat, processed or cured meats, and poultry with skin. Fill about one fourth of your plate with lean proteins, such as fish, chicken without skin, beans, eggs, or tofu. ? Avoid pre-made and processed foods. These tend to be higher in sodium, added sugar, and fat. ? Reduce your daily sodium intake. Many people with hypertension should eat less than 1,500 mg of sodium a day. ? Do not drink alcohol if: ? Your health care provider tells you not to drink. ? You are , may be , or are planning to become . ? If you drink alcohol: ? Limit how much you have to: ? 0?1 drink a day for women. ? 0?2 drinks a day for men. ? Know how much alcohol is in your drink. In the [place] one drink equals one 12 oz bottle of beer (355 mL), one 5 oz glass of wine (148 mL), or one 1? oz glass (more content not included)... Normal [facility] Screens 05-06-2023 Screens [id number] Normal [facility] CNOVon 05-05-2023 CNOV Normal [facility] Ambulatory Visit Summaryon 1 07-03-2022 Ambulatory Visit Summary JORDI FRANCO :1940 Visit Date:05/03/2023 Ambulatory Visit Instructions Your Diagnosis Encounter for annual wellness visit (AWV) in Medicare patient BMI 29.0-29.9,adult Over weight ATRIAL FIBRILLATION Atherosclerosis of abdominal aorta KELI (generalized anxiety disorder) Mixed hyperlipidemia HTN - Hypertension GERD (gastroesophageal reflux disease) Your Care Team Attending Physician - MP MARTINEZ CNP Primary Care Physician - Raul DUMONT DO This Is Your Medications List atorvastatin (Lipitor) clotrimazole topical (clotrimazole Top 1% Crm) escitalopram (Lexapro 5 mg oral tablet) finasteride (finasteride 5 mg Tab) losartan (losartan 25 mg Tab) melatonin (melatonin 5 mg oral tablet) pantoprazole (Pantoprazole [address] Tab) rivaroxaban (Xarelto 20 mg oral tablet) ubiquinone (Co Q-10) Procedures Performed Open heart surgery (11/05/2022), Cystoscopy (07/13/2018), Ankle, left, Back Surgery, Cataract extraction, Colonoscopy. What to do next Scheduled Follow-Up Appointments Wednesday 10:00 AM EDT With: IVONNE GRANT PA-C Where: [facility] [address] [place] [address]-\.br\ Medications\.br\ What How Much When Instructions\.br\ Unchanged atorvastatin (Lipitor) 20 Milligram By Mouth Once a day (at bedtime)\.br\ Unchanged clotrimazole topical (clotrimazole Top 1% Crm) 1 Application Topical 2 times a day\.br\ Unchanged escitalopram (Lexapro 5 mg oral tablet) 1 Tablets By Mouth Every day\.br\ Unchanged finasteride (finasteride 5 mg Tab) 1 Tablets By Mouth Every day\.br\ Unchanged losartan (losartan 25 mg Tab) 1 Tablets By Mouth Every day\.br\ Unchanged melatonin (melatonin 5 mg oral tablet) 1 Tablets By Mouth Once a day (at bedtime)\.br\ Unchanged pantoprazole (Pantoprazole [address] Tab) 1 Tablets By Mouth Every day\.br\ Unchanged rivaroxaban (Xarelto 20 mg oral tablet) 1 Tablets By Mouth Once a day (in the evening)\.br\ Unchanged ubiquinone (Co Q-10) See instructions 1 tab po daily \.br\ Allergies\.br\ predniSONE (Unknown, AOF)\.br\ sulfamethoxazole\ .br\ Problems\.br\ Ongoing - Any problem that you are currently receiving treatment for.\.br\ Atherosclerosis of abdominal aorta\.br\ ATRIAL FIBRILLATION\.br\ BPH with urinary obstruction\.br\ Chest wall contusion\.br\ Claustrophobia\.b r\ Constipation\.br\ Cough\.br\ Dizziness\.br\ Fidgeting\.br\ Foreskin problem\.br\ KELI (generalized anxiety disorder)\.br\ GERD (gastroesophageal reflux disease)\.br\ Groin rash\.br\ HTN - Hypertension\.br\ Insomnia\.br\ Mixed hyperlipidemia\.b r\ Panic attacks\.br\ SOB (shortness of breath)\.br\ Historical - Any problem that you are no longer receiving treatment for.\.br\ TIA\.br\ Patient Survey\.br\ You may receive a survey via text or e-mail asking about your office visit. Please share your experience with us by completing your survey. We appreciate your feedback and thank you for choosing us for your care.\.br\ Education Materials\.br\ Preventive Care 65 Years and Older, Male\.br\ Preventive care refers to lifestyle choices and visits with your health care provider that can promote health and wellness. Preventive care visits are also called wellness exams.\.br\ What can I expect for my preventive care visit?\.br\ Counseling\.br\ During your preventive care visit, your health care provider may ask about your:\.br\ ? \.br\ Medical history, including:\.br\ ? \.br\ Past medical problems.\.br\ ? \.br\ Family medical history.\.br\ ? \.br\ History of falls.\.br\ ? \.br\ Current health, including:\.br\ ? \.br\ Emotional well-being.\.br\ ? \.br\ Home life and relationship well-being.\.br\ ? \.br\ Sexual activity.\.br\ ? \.br\ Memory and ability to understand (cognition).\.br\ ? \.br\ Lifestyle, including:\.br\ ? \.br\ Alcohol, nicotine or tobacco, and drug use.\.br\ ? \.br\ Access to firearms.\.br\ ? \.br\ Diet, exercise, and sleep habits.\.br\ ? \.br\ Work and work environment.\.br\ ? \.br\ Sunscreen use.\.br\ ? \.br\ Safety issues such as seatbelt and bike helmet use.\.br\ Physical exam\.br\ Your health care provider will check your:\.br\ ? \.br\ Height and weight. These may be used to calculate your BMI (body mass index). BMI is a measurement that tells if you are at a healthy weight.\.br\ ? \.br\ Waist circumference. This measures the distance around your waistline. This measurement also tells if you are at a healthy weight and may help predict your risk of certain diseases, such as type 2 diabetes and high blood pressure.\.br\ ? \.br\ Heart rate and blood pressure.\.br\ ? \.br\ Body temperature.\.br\ ? \.br\ Skin for abnormal spots.\.br\ What immunizations do I need?\.br\ \.br\ Vaccines are usually given at various ages, according to a schedule. Your health care provider will recommend vaccines for you based on your age, medical history, and lifestyle or other factors, such as travel or where you work.\.br\ What tests do I need?\.br\ Screening\.br\ Your health care provider may recommend screening tests for certain conditions. This may include:\.br\ ? \.br\ Lipid and cholesterol levels.\.br\ ? \.br\ Diabetes screening. This is done by checking your blood sugar (glucose) after you have not eaten for a while (fasting).\.br\ ? \.br\ Hepatitis C test.\.br\ ? \.br\ Hepatitis B test.\.br\ ? \.br\ HIV (human immunodeficiency virus) test.\.br\ ? \.br\ STI (sexually transmitted infection) testing, if you are at risk.\.br\ ? \.br\ Lung cancer screening.\.br\ ? \.br\ Colorectal cancer screening.\.br\ ? \.br\ Prostate cancer screening.\.br\ ? \.br\ Abdominal aortic aneurysm (AAA) screening. You may need this if you are a current or former smoker.\.br\ Talk with your health care provider about your test results, treatment options, and if necessary, the need for more tests.\.br\ Follow these instructions at home:\.br\ Eating and drinking\.br\ \.br\ ? \.br\ Eat a diet that includes fresh fruits and vegetables, whole grains, lean protein, and low-fat dairy products. Limit your intake of foods with high amounts of sugar, saturated fats, and salt.\.br\ ? \.br\ Take vitamin and mineral supplements as recommended by your health care provider.\.br\ ? \.br\ Do not drink alcohol if your health care provider tells you not to drink.\.br\ ? \.br\ If you drink alcohol:\.br\ ? \.br\ Limit how much you have to 0?2 drinks a day.\.br\ ? \.br\ Know how much alcohol is in your drink. In the [place] one drink equals one 12 oz bottle of beer (355 mL), one 5 oz glass of wine (148 mL), or one 1? oz glass of hard liquor (44 mL).\.br\ Lifestyle\.br\ ? \.br\ [place] your teeth every morning and night with fluoride toothpaste. Floss one time each day.\.br\ ? \.br\ Exercise for at least 30 minutes 5 or more days each week.\.br\ ? \.br\ Do not use any products that contain nicotine or tobacco. These products include cigarettes, chewing tobacco, and vaping devices, such as e-cigarettes. If you need help quitting, ask your health care provider.\.br\ ? \.br\ Do not use drugs.\.br\ ? \.br\ If you are sexually active, practice safe sex. Use a condom or other form of protection to prevent STIs.\.br\ ? \.br\ Take aspirin only as told by your health care provider. Make sure that you understand how much to take and what form to take. Work with your health care provider to find out whether it is safe and beneficial for you to take aspirin daily.\.br\ ? \.br\ Ask your health care provider if you need to take a cholesterol-lower ing medicine (statin).\.br\ ? \.br\ Find healthy ways to manage stress, such as:\.br\ ? \.br\ Meditation, yoga, or listening to music.\.br\ ? \.br\ Journaling.\.br\ ? \.br\ Talking to a trusted person.\.br\ ? \.br\ Spending time with friends and family.\.br\ Safety\.br\ ? \.br\ Always wear your seat belt while driving or riding in a vehicle.\.br\ ? \.br\ Do not drive:\.br\ ? \.br\ If you have been drinking alcohol. Do not ride with someone who has been drinking.\.br\ ? \.br\ When you are tired or distracted.\.br\ ? \.br\ While texting.\.br\ ? \.br\ If you have been using any mind-altering substances or drugs.\.br\ ? \.br\ Wear a helmet and other protective equipment during sports activities.\.br\ ? \.br\ If you have firearms in your house, make sure you follow all gun safety procedures.\.br\ [facility] ED Note-Physicianon 04-12-20 ED Note-Physician Basic Information Time Seen: Marlene Santiago, Jh Johnson 04/11/2023 09:46 History of Present Illness The patient is an 82-year-old male past medical history of aortic valve replacement and mitral valve repair, who presented to the emergency room with his for dizziness. The patient states since the surgery in November he has been noticed with Parkinson and he has been having this dizzy spells on and off. The patient states today he started feeling dizzy this morning while they were driving to go to the [place]. The patient denies any spinning. He states he is dizziness is better. He denies any sensation like he is going to pass out. The patient reports nausea but no vomiting. He denies any shifting or movement of the room. The patient reports slight headache. He denies any blurred vision, denies any double vision. Denies any difficulty swallowing. The patient denies any chest pain, denies any shortness of breath. He denies any weakness on extremities. The patient denies any other associated symptoms. Review of Systems Additional ROS info: Except as noted in the above Review of Systems and in the History of Present Illness all other systems have been reviewed and are negative or noncontributory. Physical Exam Vitals & Measurements T: 36.5 ?C(Oral) HR: 93(Monitored) RR: 13 BP: 149/86 BP: 154/90(Standing) BP: 147/78(Supine) SpO2: 95% HT: 178 cm WT: 91.4 kg BMI: 28.85 General: alert, no acute distress Skin: warm, dry Head: no trauma, normocephalic Neck: Trachea midline, no tenderness, supple Eye: normal conjunctiva, sclera clear ENMT: Oral mucosa moist, no pharyngeal erythema or exudate Cardiovascular: regular rate and rhythm Respiratory: Lungs CTA, respirations non labored, breath sounds equal Gastrointestinal: soft, non distended, no tenderness, no guarding Extremities: no deformity, no trauma Neurological: Alert and oriented, CN II-XII intact, motor strength equal & normal bilaterally, sensation equal & normal bilaterally, speech normal, no focal neuro deficits, normal coordination Psychiatric: cooperative, affect appropriate for age, Procedure NIH stroke scale: Level of Consciousness: Alert = 0 Current month and age: Answers both correctly = 0 Open and close eyes/community service technician release hand: Obeys both correctly = 0 Best gaze: Normal = 0 Visual field testing: No visual field loss = 0 Facial paresis: Normal symmetric movement = 0 Motor function left arm: Normal = 0 Motor function right arm: Normal = 0 Motor function left leg: Normal = 0 Motor function right leg: Normal = 0 Limb ataxia: No ataxia = 0 Sensory: Normal = 0 Best language: No aphasia = 0 Dysarthria: Normal articulation = 0 Extinction and inattention: Normal = 0 Total Score (severe deficit >22):0 Medical Decision Making MEDICAL DECISION MAKING Number and Complexity of Problems Differential Diagnosis: [] [facility] Data External documents reviewed: [] My EKG interpretation: [] My CT interpretation: [] My X-ray interpretation: [] My Ultrasound interpretation: [] Decision rules/scores evaluated: [] Discussed with: [] Treatment and Disposition ED Course: The patient presented with dizziness. He does have history of dizziness, however he states this is among the worst episode he has experienced. He denies any spinning. NIH stroke scale is 0. The CT of the brain showed no acute intracranial process. The cxr no acute cardiopulmonary disease. The blood work reviewed and unremarkable. The patient was given zofran and his symptoms resolved the patient and his feel comfortable going home and following up with pcp. The patient and his were instructed to return to the ED if his symptoms recur or any new symptoms. Shared decision making: [] Code status: [] Assessment/Plan 1. Dizziness (R42: Dizziness and giddiness) Orders: ondansetron, 4 mg = 2 mL, Injection, IV Push, Once, Stop date 04/11/23 10:05:00 EST, STAT, Start date 04/11/23 10:05:00 EST, 04/11/23 10:05:00 EST Automated Diff Basic Metabolic Panel CBC w/ Auto Diff CT Head or Brain w/o Contrast ED Cardiac Monitoring eGFR Extra SST Tube Hepatic Function Panel Magnesium Level Orthostatic Vitals Signs Oxygen Saturation Oxygen Therapy PT & PTT Saline Lock Insert Troponin 0 Hr. Troponin 3 Hr. Troponin 6 Hr. Troponin 9 Hr. UA With Cult Reflex XR Chest Single View Medications Administered Given Zofran 4 mg/2 mL Injection, 4 mg, IV Push Disposition Plan Patient Discharge Condition Stable, Improved Discharge Disposition Discharged home Discharge Prescription List Prescriptions No active prescription medications Follow-up With When Contact Information Raul DUMONT In 3 days 04/14/2023 EST [address] [facility] [address] [facility] [place] [address]- [phone] Business (1) Additional Instructions: Return to the emergency room if your dizziness recurs or any new symptoms. Patient Education D (more content not included)... Normal [facility] Comment on above: Result Comment: Elec tronically Signed By: Marlene Santiago, Jh Johnson\.br\Date and Time Signed: 04/12/23 11:19 EST Auto Diffon 04-11-2023 Basophils/100 WBC (Bld) 0.7 % Normal 0.0-2.0 [facility] Comment on above: Order Comment: Order Added by Discern Expert. Performed By: #### 1 [id number], 33315801, 2159090, 4168871, 2575868, 1316232, 8608321, 75003111 ####[address] [address] Basophils/Leukocytes Auto (Bld) [Pure # fraction] 0.0 E9/L Normal 0.0-0.2 [facility] Comment on above: Order Comment: Order Added by Discern Expert. Performed By: #### 1 4806660, 19144338, 7341244, 8385016, 0443324, 1884296, 8422482, 26146434 ####[address] [address] Eosinophils/100 WBC (Bld) 2.5 % Normal 0.0-8.0 [facility] Comment on above: Order Comment: Order Added by Discern Expert. Performed By: #### 1 0038960, 33700791, 4259904, 7387168, 7894380, 1078495, 7827838, 88818245 ####[address] [address] Eosinophils/Leukocyt es Auto (Bld) [Pure # fraction] 0.1 E9/L Normal 0.0-0.5 [facility] Comment on above: Order Comment: Order Added by Discern Expert. Performed By: #### 1 8586297, 58093514, 1068735, 7494295, 7013159, 1688975, 2342585, 63550744 ####[address] [address] Lymphocytes/100 WBC (Bld) 16.8 % Normal 14.0-50.0 [facility] Comment on above: Order Comment: Order Added by Discern Expert. Performed By: #### 1 3233827, 57881441, 4387239, 5914440, 7626941, 6904319, 2956445, 28751262 ####[address] [place] [address] Lymphocytes/Leukocyt es Auto (Bld) [Pure # fraction] 0.6 E9/L Low 1.0-4.0 [facility] Comment on above: Order Comment: Order Added by Discern Expert. Performed By: #### 1 6272808, 66828946, 4240559, 6214854, 6114628, 0740312, 6662502, 40602706 ####[address] [place] [address] Monocytes/100 WBC (Bld) 15.1 % High 4.0-14.0 [facility] Comment on above: Order Comment: Order Added by Discern Expert. Performed By: #### 1 0651403, 18922390, 0116027, 9540896, 1835954, 8900505, 0194863, 37019239 ####[address] [address] Monocytes/Leukocytes Auto (Bld) [Pure # fraction] 0.5 E9/L Normal 0.2-1.0 [facility] Comment on above: Order Comment: Order Added by Discern Expert. Performed By: #### 1 8514541, 82154079, 2640690, 9488299, 3117101, 4684841, 9040202, 20383630 ####[address] [place] [address] Neutrophils/100 WBC (Bld) 64.9 % Normal 36.0-75.0 [facility] Comment on above: Order Comment: Order Added by Discern Expert. Performed By: #### 1 0900958, 56362769, 2304139, 6030095, 1056489, 2960932, 4100446, 32007228 ####[address] [place] [address] Neutrophils/Leukocyt es Auto (Bld) [Pure # fraction] 2.3 E9/L Normal 2.0-7.5 [facility] Comment on above: Order Comment: Order Added by Discern Expert. Performed By: #### 1 1665327, 34550747, 4760804, 5111480, 0385789, 5601163, 4600406, 25650154 ####[facility] [address] [place] [address] BMPon 04-11-2023 Creatinine [Mass/Vol] 1.0 mg/dL Normal 0.5-1.3 [facility] Comment on above: Performed By: #### 1 7960440, 02209117, 1808163, 6719770, 9776662, 6370416, 2891056, 81613873 ####[facility] [address] [place] [address] Urea nitrogen [Mass/Vol] 24 mg/dL High 5-21 [facility] Comment on above: Performed By: #### 1 1867994, 53577256, 3424901, 8373779, 4495271, 4496617, 0762358, 70576236 ####[facility] [address] [place] [address] Urea nitrogen/Creatinine [Mass ratio] 24 No Units High 10-20 [facility] Comment on above: Performed By: #### 1 8283288, 84354111, 6439942, 2195594, 3445326, 3675297, 5456012, 89900041 ####[facility] [address] [place] [address] Anion gap [Moles/Vol] 8 mmol/L Normal 6-16 [facility] Comment on above: Performed By: #### 1 6976468, 42377348, 2088878, 5213658, 0045008, 8714840, 3160219, 78538760 ####[facility] [address] [place] [address] Calcium [Mass/Vol] 9.1 mg/dL Normal 8.9-11.1 [facility] Comment on above: Performed By: #### 1 8855177, 91485276, 5118041, 0089793, 5755786, 0285388, 5523433, 54349966 ####[facility] [address] [place] [address] Chloride [Moles/Vol] 105 mmol/L Normal 101-111 [facility] Comment on above: Performed By: #### 1 0666967, 50503342, 3371451, 0423531, 8119460, 7016223, 6166199, 89972087 ####[facility] [address] [place] [address] CO2 [Moles/Vol] 29 mmol/L Normal 21-31 [facility] Comment on above: Performed By: #### 1 2596225, 42675007, 2076535, 5286006, 8439176, 5290146, 8748120, 05916256 ####[facility] [address] [place] [address] Glucose [Mass/Vol] 100 mg/dL Normal 55-199 [facility] Comment on above: Result Comment: If t his glucose result represents a fasting glucose, interpretation should refer to the following reference range: 55-99 mg/dL Performed By: #### 1 1613943, 26904342, 5088243, 6876838, 6990557, 6773725, 0757701, 96876275 ####[facility] [address] [place] [address] Potassium [Moles/Vol] 3.6 mmol/L Normal 3.5-5.3 [facility] Comment on above: Performed By: #### 1 0378268, 51081515, 9932113, 8807806, 4674235, 8410966, 7043599, 74479155 ####[facility] [address] [place] [address] Sodium [Moles/Vol] 138 mmol/L Normal 135-145 [facility] Comment on above: Performed By: #### 1 7446585, 90388015, 2450722, 2083654, 9093585, 4549996, 3352700, 89523198 ####[address] [place] [address] CBC w/ Auto Diffon Erythrocyte distribution width (RBC) [Ratio] 15.3 % High 10.9-14.2 [facility] Comment on above: Performed By: #### 1 0170182, 45960224, 4295293, 2199481, 5194993, 3973746, 6993530, 30870513 ####[address] [place] [address] Hematocrit (Bld) [Volume fraction] 36.6 % Low 37.7-49.0 [facility] Comment on above: Performed By: #### 1 0015806, 87426823, 3012767, 8086083, 1172004, 4103671, 9001080, 19272299 ####[address] [place] [address] Hemoglobin (Bld) [Mass/Vol] 11.9 g/dL Low 13.5-17.5 [facility] Comment on above: Performed By: #### 1 0340313, 30245415, 6315047, 1622432, 5362936, 3837946, 4343647, 70863147 ####[address] [place] [address] MCH (RBC) [Entitic mass] 27.5 pg Normal 27.0-34.0 [facility] Comment on above: Performed By: #### 1 4304669, 53162173, 5278415, 9071842, 5182070, 7634445, 3999124, 86055162 ####[facility] [address] [place] [address] MCHC (RBC) [Mass/Vol] 32.5 g/dL Normal 31.4-36.0 [facility] Comment on above: Performed By: #### 1 2581437, 48292159, 5258150, 5098008, 5844419, 7693613, 2873181, 53531148 ####[address] [address] MCV (RBC) [Entitic vol] 84.6 fL Normal 80.0-100.0 [facility] Comment on above: Performed By: #### 1 3905070, 02637795, 6911190, 0803031, 6883497, 3529190, 2615631, 27174701 ####[facility] [address] [place] [address] Platelet mean volume (Bld) [Entitic vol] 7.1 fL Normal 6.4-10.8 [facility] Comment on above: Performed By: #### 1 6504714, 21491593, 3301386, 3823911, 5316095, 3328692, 8815851, 66151655 ####[facility] [address] [place] [address] Platelets (Bld) [#/Vol] 163.0 E9/L Normal 150.0-500.0 [facility] Comment on above: Performed By: #### 1 7070476, 53299853, 1176012, 4397913, 6937944, 1177749, 7671268, 28501921 ####[facility] [address] [place] [address] RBC (Bld) [#/Vol] 4.3 E12/L Normal 4.3-5.9 [facility] Comment on above: Performed By: #### 1 1617007, 55706007, 0109262, 3210189, 5587321, 8615673, 5507482, 01822334 ####[facility] [address] [place] [address] WBC corrected for nucl RBC Auto (Bld) [#/Vol] 3.6 E9/L Low 4.0-11.0 [facility] Comment on above: Performed By: #### 1 1899848, 07421274, 1612298, 1671526, 2466483, 8984740, 7370339, 17073370 ####[facility] [address] [place] [address] CHEMISTRYOrdered By: SYSTEM SYSTEM on 04-11-2023 Albumin [Mass/Vol] 3.8 g/dL Normal 3.3 - 5.0 gm/dL F [facility] Remisol Albumin/Globulin [Mass ratio] 1.2 {ratio} Normal 1.1 - 2.2 [facility] Remisol ALP [Catalytic activity/Vol] 79 [iU]/d Normal 21 - 98 Int._Unit/L [facility] Remisol ALT No additional P-5'-P [Catalytic activity/Vol] 16 [iU]/d Normal 6 - 46 Int._Unit/L [facility]isol Anion gap [Moles/Vol] 8 mmol/L Normal 6 - 16 mEq/L [facility] Remisol AST [Catalytic activity/Vol] 24 [iU]/d Normal 5 - 43 Int._Unit/L [facility] Bilirubin [Mass/Vol] 0.5 mg/dL Normal 0.0 - 1.1 mg/dL [facility]isol Bilirubin.direct [Mass/Vol] 0.1 mg/dL Normal 0.1 - 0.4 mg/dL [facility] Remisol Bilirubin.indirect [Mass or moles/Vol] 0.4 mg/dL Normal 0.1 - 0.9 mg/dL [facility] Calcium [Mass/Vol] 9.1 mg/dL Normal 8.9 - 11.1 mg/dL [facility] Chloride [Moles/Vol] 105 mmol/L Normal 101 - 111 mmol/ L [facility] CO2 [Moles/Vol] 29 mmol/L Normal 21 - 31 mmol/L [facility] Creatinine [Mass/Vol] 1.0 mg/dL Normal 0.5 - 1.3 mg/dL [facility] GFR/1.73 sq M.predicted among non-blacks MDRD (S/P/Bld) [Vol rate/Area] 75 mL/min/1.73 m2 Normal >=59mL/min/1.73 m2 [facility] Chem S Comment on above: Interpretive Data: C hronic kidney disease could be indicated at eGFR's of less than 60 mL/min/1.73m2. Kidney failure is indicated at less than 15 mL/min/1.73m2. Globulin (S) [Mass/Vol] 3.1 g/dL Normal 1.4 - 4.0 gm/dL [facility] Glucose [Mass/Vol] 100 mg/dL Normal 55 - 199 mg/dL [facility] Comment on above: Interpretive Data: I f this glucose result represents a fasting glucose, interpretation should refer to the following reference range: 55-99 mg/dL Magnesium [Mass/Vol] 2.0 mg/dL Normal 1.3 - 2.4 mg/dL [facility] Potassium [Moles/Vol] 3.6 mmol/L Normal 3.5 - 5.3 mmol/L [facility] Protein [Mass/Vol] 6.9 g/dL Normal 6.0 - 7.8 gm/dL [facility] Sodium [Moles/Vol] 138 mmol/L Normal 135 - 145 mmol/L [facility] Troponin I.cardiac [Mass/Vol] 8.50 pg/mL Low 15.90 - 38.40 pg/mL [facility] Comment on above: Interpretive Data: T he 95% CI (Confidence Interval) PPV (Positive Predictive Value) for myocardial infarction in females is 38 pg/mL, in males 51 pg/mL. The results should be used in conjunction with clinical conditions of myocardial infarction. (Access High Sensitivity Troponin I Instructions For Use, [facility] [place], January 2018) Urea nitrogen [Mass/Vol] 24 mg/dL High 5 - 21 mg/dL [facility] Urea nitrogen/Creatinine [Mass ratio] 24 mg/mg High 10 - 20 [facility] COAGULATIONOrdered By: Wendi Hernandez on 04-11-2023 aPTT Coag (PPP) [Time] 36.3 s Normal 25.1 - 36.5 second(s) [facility] Auto Coag Comment on above: Interpretive Data: Toshia ruiz 15 days - 4 weeks 1 - 5 months 6 - 11 months 1 - 5 years 6 - 10 years 11 - 17 years PTT Mean: 35.4 (27.6-45.6) Mean: 33.5 (24.8-40.7) Mean: 32.4 (25.1-40.7) Mean: 31.6 (24.0-39.2) Mean: 31.6 (26.9-38.7) Mean: 31.0 (24.6-38.4) Pediatric Reference ranges were obtained from a study by mando Joshua al. prepared from 1437 samples obtained at 7 different centers using the same coagulation reagent and instrumentation as [facility]. Currently there are no coagulation studies available worldwide for children to 14 days, and no normal ranges. Heparin therapeutic range (represented by Anti-Factor Xa activity of 0.2 - 0.4 U/mL) corresponds to PTT of 56.6 - 109.0 sec. INR Coag (PPP) [Relative time] 1.2 {INR} Invalid Interpretation Code [facility] Auto Coag Comment on above: Interpretive Data: I NR results are specifically intended to assess patients stabilized on long-term Anticoagulation therapy suggested INR s Less Intensive Anticoagulation 2.0 3.0 Conventional Range 3.0 4.5 PT Coag (PPP) [Time] 13.9 s High 9.4 - 1 2.5 second(s) [facility] Auto Coag Comment on above: Interpretive Data: 1 5 days - 4 weeks 1 - 5 months 6 -11 months 1-5 years 6-10 years 11 -17 years Mean: 11.2 (9.5-12.6) Mean: 11.0 (9.7-12.8) Mean: 11.0 (9.8-13.0) Mean: 11.3 (9.9-13.4) Mean: 11.7 (10.0-14.6) Mean: 11.8 (10.0 - 14.1) Pediatric Reference ranges were obtained from a study by jose juan Joshua prepared from 1437 samples obtained at 7 different centers using the same coagulation reagent and instrumentation as [facility]. Currently there are no coagulation studies available worldwide for children to 14 days, and no normal ranges. CT Head or Brain w/o Contras ton 04-11-2023 CT Head or Brain w/o Contrast Exam Date/Time: 04/11/2023 10:38 EST Reason for Exam: Dizziness;Other (please specify) Report IMPRESSION: There is no acute hemorrhage or ischemia. 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 EXAM: CT Head or Brain w/o Contrast DATE: 04/11/2023 10:24 AM CLINICAL HISTORY: AMS Dizziness TECHNIQUE: Multiple images axial images were obtained without contrast administration. 3-D sagittal and coronal reconstructions were performed. All CT scans at this facility use dose modulation, iterative reconstruction, and/or weight based dosing when appropriate to reduce radiation dose to as low as reasonably achievable. COMPARISON: FINDINGS: There is no evidence of acute hemorrhage, mass effect or edema. There are no extra-axial collections or space-occupying lesions. There is no evidence of acute ischemia, loss of castillo-white matter differentiation There is moderate prominence of sulci and ventricles similar to the previous study indicating global cerebral atrophy. There are periventricular white matter hypodensities likely secondary to chronic microangiopathy. The posterior fossa is unremarkable, The orbits demonstrate no intra or extraconal lesions. The globes are intact. The visualized portions of paranasal sinuses are unremarkable. The calvarium is unremarkable. Report Ordering Provider: Jh Rosario FINAL REPORT Dictated: 04/11/2023 11:03 am Dajuan Engle MD, V. Signed (Electronic Signature): 04/11/2023 11:03 am Signed by: Dajuan Engle MD, V. Transcribed by: GREGG Technologist: ORLY Normal [facility] Consent for Treatmenton Consent for Treatment [id number] Normal [facility] Discharge Instructionson Discharge Instructions [id number] Normal [facility] ED Clinical Summaryon 2022 ED Clinical Summary [address] [place] [id number] ED Clinical Summary Person Information Name: JORDI FRANCO [facility] Age: 82 Years : 1940 Sex: Male Language: Mohawk PCP: Raul DUMONT DO Marital Status: Visit Id: Visit Reason: Dizziness; Nausea; DIZZY Speciality: Acuity: 3 Enc Type: Emergency Med Service: Emergency Arrival: 04/11/2023 09:36:59 Discharge: 04/11/2023 12:30:42 LOS: 000 02:54 Checkin: 04/11/2023 09:36:59 Checkout: 04/11/2023 12:30:42 Dispo Type: Home (Routine DC) EVENTS: Event Name Event Status Request Date/Time Start Date/Time Complete Date/Time Arrive Complete 04/11/2023 09:36:59 04/11/2023 09:36:59 04/11/2023 09:36:59 Document Home Meds Request 04/11/2023 09:36:59 Triage Complete 04/11/2023 09:36:59 04/11/2023 09:50:00 04/11/2023 09:50:00 Bed Assign Complete 04/11/2023 09:45:48 04/11/2023 09:45:48 04/11/2023 09:45:48 Dr Exam Complete 04/11/2023 09:45:48 04/11/2023 09:46:15 04/11/2023 09:46:15 RN Exam Complete 04/11/2023 09:45:48 04/11/2023 11:17:00 04/11/2023 11:17:00 Registration Complete 04/11/2023 09:46:15 04/11/2023 10:17:20 04/11/2023 10:17:20 EKG Complete 04/11/2023 09:48:37 04/11/2023 10:04:07 Pending Labs Request 04/11/2023 10:00:34 Lab Complete 04/11/2023 10:00:34 04/11/2023 11:41:06 Urine Collect Complete 04/11/2023 10:00:34 04/11/2023 11:41:06 Patient Care Request 04/11/2023 10:00:34 RT Request 04/11/2023 10:00:34 X-Ray Complete 04/11/2023 10:00:34 04/11/2023 10:34:31 04/11/2023 10:35:05 CT Complete 04/11/2023 10:00:34 04/11/2023 10:24:18 04/11/2023 10:38:07 Meds Admin Complete 04/11/2023 10:05:54 04/11/2023 10:14:03 Reg Complete Request 04/11/2023 10:17:20 Reg Bed Request Complete 04/11/2023 10:17:20 04/11/2023 10:17:20 04/11/2023 10:17:20 Pending Labs Complete 04/11/2023 10:24:48 04/11/2023 10:24:48 04/11/2023 11:00:50 Lab Complete 04/11/2023 10:24:48 04/11/2023 10:24:48 04/11/2023 11:00:50 Pending Labs Complete 04/11/2023 10:28:36 04/11/2023 10:28:36 04/11/2023 10:28:43 Lab Complete 04/11/2023 10:28:36 04/11/2023 10:28:36 04/11/2023 10:28:43 Wet Read Request 04/11/2023 10:35:05 Pending Labs Complete 04/11/2023 10:59:49 04/11/2023 10:59:49 04/11/2023 10:59:49 Fall Risk Request 04/11/2023 11:17:01 Discharge Complete 04/11/2023 12:22:27 04/11/2023 12:30:48 04/11/2023 12:30:48 Transfer Complete 04/11/2023 12:30:48 04/11/2023 12:30:48 04/11/2023 12:30:48 ADDRESS: [address] [place] [phone] PHYS DOC NOTES: MEDICAL INFORMATION: Prescriptions Given: Medications to Continue with No Changes Other Medications atorvastatin (Lipitor) 20 Milligram By Mouth once a day (at bedtime). clotrimazole topical (clotrimazole Top 1% Crm) 1 Application Topical 2 times a day. Refills: 1. escitalopram (Lexapro 5 mg oral tablet) 1 Tablets By Mouth every day. Refills: 3. finasteride (finasteride 5 mg Tab) 1 Tablets By Mouth every day. Refills: 3. losartan (losartan 25 mg Tab) 1 Tablets By Mouth every day. Refills: 1. melatonin (melatonin 5 mg oral tablet) 1 Tablets By Mouth once a day (at bedtime). Refills: 1. pantoprazole (Pantoprazole [address] Tab) 1 Tablets By Mouth every day. Refills: 3. rivaroxaban (Xarelto 20 mg oral tablet) 1 Tablets By Mouth once a day (in the evening). ubiquinone (Co Q-10) 1 tab po daily. PATIENT EDUCATION INFORMATION: Instructions: Dizziness Follow up: With: Address: When: Raul DUMONT [address], [facility] [place] [address] [phone] Business (1) In 3 days 04/14/2023 Comments: Return to the emergency room if your dizziness recurs or any new symptoms. DIAGNOSIS: 1:Dizziness Normal [facility] ED Patient Education Noteon 04-11-2023 ED Patient Education Note Neurology Dizziness Dizziness is a common problem. It is a feeling of unsteadiness or light-headedness. You may feel like you are about to faint. Dizziness can lead to injury if you stumble or fall. Anyone can become dizzy, but dizziness is more common in older adults. This condition can be caused by a number of things, including medicines, dehydration, or illness. Follow these instructions at home: Eating and drinking ? Drink enough fluid to keep your urine pale yellow. This helps to keep you from becoming dehydrated. Try to drink more clear fluids, such as water. ? Do not drink alcohol. ? Limit your caffeine intake if told to do so by your health care provider. Check ingredients and nutrition facts to see if a food or beverage contains caffeine. ? Limit your salt (sodium) intake if told to do so by your health care provider. Check ingredients and nutrition facts to see if a food or beverage contains sodium. Activity ? Avoid making quick movements. ? Rise slowly from chairs and steady yourself until you feel okay. ? In the morning, first sit up on the side of the bed. When you feel okay, stand slowly while you hold onto something until you know that your balance is good. ? If you need to clothing busheler one place for a long time, move your legs often. Tighten and relax the muscles in your legs while you are standing. ? Do not drive or use machinery if you feel dizzy. ? Avoid bending down if you feel dizzy. Place items in your home so that they are easy for you to reach without leaning over. Lifestyle ? Do not use any products that contain nicotine or tobacco. These products include cigarettes, chewing tobacco, and vaping devices, such as e-cigarettes. If you need help quitting, ask your health care provider. ? Try to reduce your stress level by using methods such as yoga or meditation. Talk with your health care provider if you need help to manage your stress. General instructions ? Watch your dizziness for any changes. ? Take cgln-ram-jcdkvdn and prescription medicines only as told by your health care provider. Talk with your health care provider if you think that your dizziness is caused by a medicine that you are taking. ? Tell a friend or a family member that you are feeling dizzy. If he or she notices any changes in your behavior, have this person call your health care provider. ? Keep all follow-up visits. This is important. Contact a health care provider if: ? Your dizziness does not go away or you have new symptoms. ? Your dizziness or light-headedness gets worse. ? You feel nauseous. ? You have reduced hearing. ? You have a fever. ? You have neck pain or a stiff neck. ? Your dizziness leads to an injury or a fall. Get help right away if: ? You vomit or have diarrhea and are unable to eat or drink anything. ? You have problems talking, walking, swallowing, or using your arms, hands, or legs. ? You feel generally weak. ? You have any bleeding. ? You are not thinking clearly or you have trouble forming sentences. It may take a friend or family member to notice this. ? You have chest pain, abdominal pain, shortness of breath, or sweating. ? Your vision changes or you develop a severe headache. These symptoms may represent a serious problem that is an emergency. Do not wait to see if the symptoms will go away. Get medical help right away. Call your local emergency services (911 in the [place] Do not drive yourself to the hospital. Summary ? Dizziness is a feeling of unsteadiness or light-headedness. This condition can be caused by a number of things, including medicines, dehydration, or illness. ? Anyone can become dizzy, but dizziness is more common in older adults. ? Drink enough fluid to keep your urine pale yellow. Do not drink alcohol. ? Avoid making quick movements if you feel dizzy. Monitor your dizziness for any changes. This information is not intended to replace advice given to you by your health care provider. Make sure you discuss any questions you have with your health care provider. Document Revised: 04/28/2021 Document Reviewed: 04/28/2021 Elsevier Patient Education ? 2022 [employer] Normal [facility] ED Patient Summaryon 023 ED Patient Summary [place] [id number] Patient Discharge Instructions Person Information Name: JORDI FRANCO Age: 82 Years Arrival Date: 04/11/2023 09:36:59 Discharge Diagnosis: 1:Dizziness Primary Care Physician: Raul DUMONT DO Provider Information Primary Provider: Jh Rosario M.D. Advanced Linux Kernel Developer:None The exam and treatment you received in the Emergency Department were for an urgent problem and are not intended as complete care. It is important that you follow up with a doctor, nurse practitioner, or physician?s medical lab assistant for ongoing care. If your symptoms become worse or you do not improve as expected and you are unable to reach your usual health care provider, you should return to the Emergency Department. We are available 24 hours a day. JORDI FRANCO has been given the following list of patient education materials, prescriptions and follow-up instructions: Follow-up Instructions: With: Address: When: Raul DUMONT [address] [facility], [facility] [place] [address] [phone] Business (1) In 3 days 04/14/2023 Comments: Return to the emergency room if your dizziness recurs or any new symptoms. In the event that this physician does not participate in your insurance network, please consult with your insurance company to find a nearby participating provider. Patient Education Materials: Dizziness A MESSAGE TO ALL PATIENTS REGARDING OPIOIDS PRESCRIPTION OPIOIDS: WHAT YOU NEED TO KNOW Prescription opioids can be used to help relieve qfnvrsac-bf-htcomy pain and are often prescribed following a surgery or injury, or for certain health conditions. These medications can be an important part of the treatment but also come with serious risks. It is important to work with your healthcare provider to make sure you are getting the safest, most effective care. WHAT ARE THE RISKS AND SIDE EFFECTS OF OPIOID USE? Prescription opioids carry serious risks of addiction and overdose, especially with prolonged use. An opioid overdose, often marked by slowed breathing, can cause sudden . The use of prescription opioids can have a number of side effects as well, even when taken as directed: ? Tolerance?meaning you might need to take more of the medication for the same pain relief ? Physical dependence?meaning you have symptoms of withdrawal when a medication is stopped ? Increased sensitivity to pain ? Constipation ? Nausea, vomiting, and dry mouth ? Sleepiness and dizziness ? Confusion ? Depression ? Low levels of testosterone that can result in lower sex drive, energy, and strength ? Itching and sweating RISKS ARE GREATER WITH: ? History of drug misuse, substance use disorder, or overdose ? Mental health conditions (such as depression or anxiety) ? Sleep apnea ? Older age (65 years and older) ? Avoid alcohol while taking prescription opioids. Also, unless specifically advised by your health care provider, medications to avoid include: ? Benzodiazepines (such as Xanax or Valium) ? Muscle relaxants (such as Soma or Flexeril) ? Hypnotics (such as Ambien or Lunesta) ? Other prescription opioids KNOW YOUR OPTIONS Talk to your health care provider about ways to manage your pain that don?t involve prescription opioids. Some of these options may actually work better and have fewer risks and side effects. Options may include: ? Pain relievers such as acetaminophen, ibuprofen, and naproxen ? Some medication that are also used for depression or seizures ? Physical therapy and exercise ? Cognitive behavioral therapy, a psychological, goal-directed approach, in which patients learn how to modify physical, behavioral, and emotional triggers of pain and stress. IF YOU ARE PRESCRIBED OPIOIDS FOR PAIN: ? Never take opioids in greater amounts or more often than prescribed. ? Follow up with your primary health care provider. o Work together to create a plan on how to manage your pain. o Talk about ways to help manage your pain that don?t involve prescription opioids. o Talk about any and all concerns and side effects. ? Help prevent misuse and abuse o Never sell or share prescription opioids. o Never use another person?s prescription opioids. ? Store prescription opioids in a secure place and out of reach of others (this may include visitors, children, friends, and family). ? Safely dispose of unused prescription opioids: Find your community drug take-back program or your pharmacy mail-back program, or flush them down the toilet, following guidance from the Food and Drug Administration (www.fda.gov/Drugs/Re sourcesForYou). ? Visit www.cdc.gov/drugoverd ose to learn about the risks of opioids abuse and overdose. ? If you believe you may be struggling with addiction, tell your health restorative care technician and ask for kierra (more content not included)... Normal [facility] HEMATOLOGYOrdered By: SYSTEM SYSTEM on 04-11-2023 Basophils/100 WBC (Bld) 0.7 % Normal 0.0 - 2.0 % [facility] HemeAutoSS Basophils/Leukocytes Auto (Bld) [Pure # fraction] 0.0 E9/L Normal 0.0 - 0.2 E9/L [facility] HemeAutoSS Eosinophils/100 WBC (Bld) 2.5 % Normal 0.0 - 8.0 % [facility] HemeAutoSS Eosinophils/Leukocyt es Auto (Bld) [Pure # fraction] 0.1 E9/L Normal 0.0 - 0.5 E9/L [facility] HemeAutoSS Lymphocytes/100 WBC (Bld) 16.8 % Normal 14.0 - 50.0 % [facility] HemeAutoSS Lymphocytes/Leukocyt es Auto (Bld) [Pure # fraction] 0.6 E9/L Low 1.0 - 4.0 E9/L [facility] HemeAutoSS Monocytes/100 WBC (Bld) 15.1 % High 4.0 - 14.0 % [facility] HemeAutoSS Monocytes/Leukocytes Auto (Bld) [Pure # fraction] 0.5 E9/L Normal 0.2 - 1.0 E9/L [facility] HemeAutoSS Neutrophils/100 WBC (Bld) 64.9 % Normal 36.0 - 75.0 % [facility] HemeAutoSS Neutrophils/Leukocyt es Auto (Bld) [Pure # fraction] 2.3 E9/L Normal 2.0 - 7.5 E9/L [facility] HemeAutoSS HEMATOLOGYOrdered By: Cynthia Camejo on 04-11-2023 Erythrocyte distribution width (RBC) [Ratio] 15.3 % High 10.9 - 14.2 % [facility] HemeAutoSS Hematocrit (Bld) [Volume fraction] 36.6 % Low 37.7 - 49.0 % [facility] HemeAutoSS Hemoglobin (Bld) [Mass/Vol] 11.9 g/dL Low 13.5 - 17.5 gm/dL [facility] HemeAutoSS MCH (RBC) [Entitic mass] 27.5 pg Normal 27.0 - 34.0 pg [facility] HemeAutoSS MCHC (RBC) [Mass/Vol] 32.5 g/dL Normal 31.4 - 36.0 gm/dL [facility] HemeAutoSS MCV (RBC) [Entitic vol] 84.6 fL Normal 80.0 - 100.0 fL [facility] HemeAutoSS Platelet mean volume (Bld) [Entitic vol] 7.1 fL Normal 6.4 - 10.8 fL [facility] HemeAutoSS Platelets (Bld) [#/Vol] 163.0 E9/L Normal 150.0 - 500.0 E9/L [facility] HemeAutoSS RBC (Bld) [#/Vol] 4.3 E12/L Normal 4.3 - 5.9 E12/L [facility] HemeAutoSS WBC corrected for nucl RBC Auto (Bld) [#/Vol] 3.6 E9/L Low 4.0 - 11.0 E9/L [facility] HemeAutoSS Hep Func Panelon 04-11-2023 Albumin [Mass/Vol] 3.8 g/dL Normal 3.3-5.0 [facility] Comment on above: Performed By: #### 1 [id number], 21782527, 1368772, 0331610, 1007524, 0585071, 3500904, 36436883 ####[facility] [address] [place] [address] Albumin/Globulin (S) [Mass conc ratio] 1.2 Normal 1.1-2.2 [facility] Comment on above: Performed By: #### 1 1665481, 86674427, 4308182, 3389393, 4353920, 4497364, 8750092, 41480385 ####[facility] [address] [place] [address] ALP [Catalytic activity/Vol] 79 Int._Unit/L Normal 21-98 [facility] Comment on above: Performed By: #### 1 4463801, 91097469, 3686616, 9042065, 4976815, 9985279, 9348761, 55125146 ####[facility] [address] [place] [address] ALT No additional P-5'-P [Catalytic activity/Vol] 16 Int._Unit/L Normal 6-46 [facility] Comment on above: Performed By: #### 1 1851687, 70395173, 0216369, 9133532, 1308670, 3316877, 0148651, 75523285 ####[facility] [address] [place] [address] AST [Catalytic activity/Vol] 24 Int._Unit/L Normal 5-43 [facility] Comment on above: Performed By: #### 1 1580774, 54449418, 2891108, 8886178, 1381878, 7824680, 7371538, 13010563 ####[facility] [address] [place] 0058957 Bilirubin [Mass/Vol] 0.5 mg/dL Normal 0.0-1.1 [facility] Comment on above: Performed By: #### 1 2698627, 06252356, 6079529, 1134147, 7000453, 5191054, 0354570, 83108584 ####[facility] [address] [place] 0058957 Bilirubin.direct [Mass/Vol] 0.1 mg/dL Normal 0.1-0.4 [facility] Comment on above: Performed By: #### 1 2044386, 50453336, 6017354, 2772858, 3490417, 9036628, 2802066, 70201658 ####[facility] [address] [place] 0058957 Bilirubin.indirect [Mass or moles/Vol] 0.4 mg/dL Normal 0.1-0.9 [facility] Comment on above: Performed By: #### 1 7209122, 65950434, 6877795, 3826801, 9290578, 1178719, 8503513, 29001592 ####[facility] [address] [place] [address] Globulin (S) [Mass/Vol] 3.1 g/dL Normal 1.4-4.0 [facility] Comment on above: Performed By: #### 1 2486070, 69626440, 4595138, 3015203, 1969677, 1985174, 3200948, 65499008 ####[facility] [address] [place] [address] Protein [Mass/Vol] 6.9 g/dL Normal 6.0-7.8 [facility] Comment on above: Performed By: #### 1 9065045, 78166952, 4382933, 4249510, 2493244, 2061331, 5671523, 66261293 ####[facility] [address] [place] [address] Magnesiumon 04-11-2023 Magnesium [Mass/Vol] 2.0 mg/dL Normal 1.3-2.4 [facility] Comment on above: Performed By: #### 1 8781465, 41262340, 4936110, 8477585, 0761573, 9717625, 7535483, 24365498 ####[facility] [address] [place] [address] Monitor Recordon 04-11-2023 Monitor Record [id number]# 1.00TIFF Normal [facility] PT & PTTon 04-11-2023 aPTT Coag (PPP) [Time] 36.3 second(s) Normal 25.1-36.5 [facility] Comment on above: Result Comment: Para meter 15 days - 4 weeks 1 - 5 months 6 - 11 months 1 - 5 years 6 - 10 years 11 - 17 years PTT Mean: 35.4 (27.6-45.6) Mean: 33.5 (24.8-40.7) Mean: 32.4 (25.1-40.7) Mean: 31.6 (24.0-39.2) Mean: 31.6 (26.9-38.7) Mean: 31.0 (24.6-38.4) Pediatric Reference ranges were obtained from a study by mando Joshau al. prepared from 1437 samples obtained at 7 different centers using the same coagulation reagent and instrumentation as [facility]. Currently there are no coagulation studies available worldwide for children to 14 days, and no normal ranges. Heparin therapeutic range (represented by Anti-Factor Xa activity of 0.2 - 0.4 U/mL) corresponds to PTT of 56.6 - 109.0 sec. Performed By: #### 1 2589520, 36346478, 2183375, 9660580, 4336809, 7042623, 8449606, 54991600 ####[facility] [address] [place] [address] INR Coag (PPP) [Relative time] 1.2 {INR} Invalid Interpretation Code [facility] Comment on above: Result Comment: INR results are specifically intended to assess patients stabilized on long-term Anticoagulation therapy suggested INR?s ?Less Intensive Anticoagulation? 2.0 ? 3.0 Conventional Range 3.0 ? 4.5 Performed By: #### 1 4039811, 50853415, 8349777, 9742438, 6986431, 2098173, 5942671, 42901325 ####[facility] [address] [place] [address] PT Coag (PPP) [Time] 13.9 second(s) High 9.4-12.5 [facility] Comment on above: Result Comment: 15 d ays - 4 weeks 1 - 5 months 6 -11 months 1- 5 years 6-10 years 11 -17 years Mean: 11.2 (9.5-12.6) Mean: 11.0 (9.7-12.8) Mean: 11.0 (9.8-13.0) Mean: 11.3 (9.9-13.4) Mean: 11.7 (10.0-14.6) Mean: 11.8 (10.0 - 14.1) Pediatric Reference ranges were obtained from a study by Amor Aden et al. prepared from 1437 samples obtained at 7 different centers using the same coagulation reagent and instrumentation as [facility]. Currently there are no coagulation studies available worldwide for children to 14 days, and no normal ranges. Performed By: #### 1 8436115, 48073819, 1969745, 4518737, 1599903, 4290255, 7888373, 36789116 ####[facility] [address] [place] [address] Troponin 0 Hr.on 04-11-2023 Troponin I.cardiac [Mass/Vol] 8.50 pg/mL Low 15.90-38.40 [facility] Comment on above: Result Comment: The 95% CI (Confidence Interval) PPV (Positive Predictive Value) for myocardial infarction in females is 38 pg/mL, in males 51 pg/mL. The results should be used in conjunction with clinical conditions of myocardial infarction. (Access High Sensitivity Troponin I Instructions For Use, [facility] [place], January 2018) Performed By: #### 1 8997597, 98992197, 7719144, 3303924, 7990087, 0374588, 9111822, 59412611 ####[address] [address] UA With Cult Reflexon 2022 Bilirubin Ql (U) Negative Normal Negative [facility] Comment on above: Performed By: #### 1 9247503 ####[address] [address] Clarity (U) CLEAR Normal Clear [facility] Comment on above: Performed By: #### 1 3384416 ####[address] [address] Color (U) YELLOW Normal Yellow [facility] Comment on above: Performed By: #### 1 4561210 ####[address] [address] Epithelial cells.squamous LM.HPF (Urine sed) [#/Area] 0-2 Normal 0-2 [facility] Comment on above: Performed By: #### 1 1949327 ####[address] [address] Glucose Test strip (U) [Mass/Vol] Negative Normal Negative [facility] Comment on above: Performed By: #### 1 2478580 ####[address] [address] Hemoglobin Ql (U) Negative Normal Negative [facility] Comment on above: Performed By: #### 1 1724790 ####[facility] [address] [place] [address] Ketones (U) [Mass/Vol] Negative Normal Negative [facility] Comment on above: Performed By: #### 1 6158019 ####[place] [address] [place] [address] [place].plasma/Lithi um.RBC (Bld) [Mass ratio] 0-3 Normal 0-3 [facility] Comment on above: Performed By: #### 1 2708725 ####[place] [address] [place] [address] Nitrite Ql (U) Negative Normal Negative [facility] Comment on above: Performed By: #### 1 7334398 ####[address] [address] pH (U) 6.0 [pH] Invalid Interpretation Code 5.0-9.0 [facility] Comment on above: Performed By: #### 1 1710776 ####[address] [address] Protein (U) [Mass/Vol] Negative Normal Negative [facility] Comment on above: Performed By: #### 1 1205883 ####[address] [address] Specific gravity (U) [Rel density] 1.015 Invalid Interpretation Code 1.005-1.030 [facility] Comment on above: Performed By: #### 1 9617652 ####[facility] [address] [place] [address] Type of Urine collection method Clean Catch Normal [facility] Comment on above: Performed By: #### 1 5850804 ####[address] [address] Urobilinogen Qn (U) 0.2 {Nasra'U}/dL Normal 0.0-1.0 [facility] Comment on above: Performed By: #### 1 8598253 ####[facility] [address] [place] [address] WBC Auto Ql (U) Negative Normal Negative [facility] Comment on above: Performed By: #### 1 6878822 ####[facility] [address] [place] [address] WBC LM.HPF (Urine sed) [#/Area] 0-5 Normal 0-5 [facility] Comment on above: Performed By: #### 1 8373194 ####[facility] [address] [place] [address] URINALYSISOrdered By: Matthew Hernandez on 04-11-2023 Bilirubin Ql (U) Negative (04/11/23 11:25 AM) Normal Negative [facility] UA Auto SS Clarity (U) Clear (04/11/23 11:25 AM) Normal Clear [facility] UA Auto SS Color (U) Yellow (04/11/23 11:25 AM) Normal Yellow [facility] UA Auto SS Epithelial cells.squamous LM.HPF (Urine sed) [#/Area] 0-2 /HPF Normal 0-2/HPF [facility] UA Auto SS Glucose Test strip (U) [Mass/Vol] Negative (04/11/23 11:25 AM) Normal Negative [facility] UA Auto SS Hemoglobin Ql (U) Negative (04/11/23 11:25 AM) Normal Negative [facility] UA Auto SS Ketones (U) [Mass/Vol] Negative (04/11/23 11:25 AM) Normal Negative [facility] UA Auto SS [place].plasma/Lithi um.RBC (Bld) [Mass ratio] 0-3 /HPF Normal 0-3/HPF [facility] UA Auto SS Nitrite Ql (U) Negative (04/11/23 11:25 AM) Normal Negative [facility] UA Auto SS pH (U) 6.0 *NA* (04/11/23 11:25 AM) Invalid Interpretation Code 5.0 - 9.0 [facility] UA Auto SS Protein (U) [Mass/Vol] Negative (04/11/23 11:25 AM) Normal Negative [facility] UA Auto SS Specific gravity (U) [Rel density] 1.015 *NA* (04/11/23 11:25 AM) Invalid Interpretation Code 1.005 - 1.030 [facility] UA Auto SS UA Spec Desc Clean Catch (04/11/23 11:25 AM) Normal [facility] UA Auto SS Urobilinogen Qn (U) 0.5012130 {Nasra'U}/dL Normal 0.0 - 1.0 EU/dL [facility] UA Auto SS WBC Auto Ql (U) Negative (04/11/23 11:25 AM) Normal Negative [facility] UA Auto SS WBC LM.HPF (Urine sed) [#/Area] 0-5 /HPF Normal 0-5/HPF [facility] UA Auto SS XR Chest Single Viewon 04-11 XR Chest Single View Exam Date/Time: 04/11/2023 10:35 EST Reason for Exam: Chest pain Report IMPRESSION: There are no acute cardiopulmonary changes. CLINICAL HISTORY: Chest pain EXAMINATION: XR Chest Single View COMPARISON: Chest x-ray from 07/23/2019 FINDINGS: The cardiomediastinal silhouette is unremarkable. The lungs are free of infiltrates effusions or consolidations. There are no acute osseous changes. Ordering Provider: Jh Rosario FINAL REPORT Dictated: 04/11/2023 11:02 am Dajuan Engle MD, V. Signed (Electronic Signature): 04/11/2023 11:02 am Signed by: Dajuan Engle MD, V. Transcribed by: GREGG Technologist: ZACHERY, Technical Comments Radiation Dose: Ka,r in mGy = na DAP = na Normal [facility] eGFRon 04-11-2023 GFR/1.73 sq M.predicted among non-blacks MDRD (S/P/Bld) [Vol rate/Area] 75 mL/min/1.73 m2 Normal >=59 [facility] Comment on above: Order Comment: Order added by Discern Expert. Result Comment: Dental Assistant lin kidney disease could be indicated at eGFR's of less than 60 mL/min/1.73m2. Kidney failure is indicated at less than 15 mL/min/1.73m2. Performed By: #### 1 7103914, 23925479, 0571520, 3970176, 8790084, 2738823, 7611143, 16729206 ####[facility] [address] [place] [address] [place]enson 02-17-2023 Screens [id number]#1. 00CD:127 Normal [facility] Ambulatory Visit Summaryon 0 02-16-2023 Ambulatory Visit Summary JORDI FRANCO :1940 Visit Date:02/16/2023 Ambulatory Visit Instructions Your Diagnosis BPH with urinary obstruction Foreskin problem Groin rash Tests Performed Urnls Dip Stick Auto w/o Microscopy POC [address] Your Care Team Attending Physician - IVONNE GRANT PA-C Primary Care Physician - Raul DUMONT DO This Is Your Medications List finasteride (finasteride 5 mg Tab) Contact prescribing physician if questions or concerns atorvastatin (Lipitor) clotrimazole topical (clotrimazole Top 1% Crm) escitalopram (Lexapro 5 mg oral tablet) losartan (losartan 25 mg Tab) melatonin (melatonin 5 mg oral tablet) pantoprazole (Pantoprazole [address] Tab) rivaroxaban (Xarelto 20 mg oral tablet) ubiquinone (Co Q-10) Procedures Performed Open heart surgery (11/05/2022), Cystoscopy (07/13/2018), Ankle, left, Back Surgery, Cataract extraction, Colonoscopy. Discharge Vitals Heart Rate (Peripheral) 68 Respiratory Rate 16 Blood Pressure 134/76 Height 178 cm Height 70 in Weight 95.6 kg Weight 210.32 lb BMI 30.17 What to do next Scheduled Follow-Up Appointments 2022 11:00 AM EST With: Where: [facility] [address] [place] [address]- \.br\ You Need to Schedule the Following Appointments\.br\ Follow Up with IVONNE GRANT PA-C, URL When: In 1 year\.br\ Comments:\.br\ w/PSA\.br\ Where:\.br\ [address]\ [place] [address]\.br\ Medications\.br\ What How Much When Instructions\.br\ Unchanged finasteride (finasteride 5 mg Tab) 1 Tablets By Mouth Every day Pickup at [facility]/pharmacy #[id number]\.br\ Unchanged atorvastatin (Lipitor) 20 Milligram By Mouth Once a day (at bedtime) Contact prescribing physician if questions or concerns \.br\ Unchanged clotrimazole topical (clotrimazole Top 1% Crm) 1 Application Topical 2 times a day Contact prescribing physician if questions or concerns \.br\ Unchanged escitalopram (Lexapro 5 mg oral tablet) 1 Tablets By Mouth Every day Contact prescribing physician if questions or concerns \.br\ Unchanged losartan (losartan 25 mg Tab) 1 Tablets By Mouth Every day Contact prescribing physician if questions or concerns \.br\ Unchanged melatonin (melatonin 5 mg oral tablet) 1 Tablets By Mouth Once a day (at bedtime) Contact prescribing physician if questions or concerns \.br\ Unchanged pantoprazole (Pantoprazole [address] Tab) 1 Tablets By Mouth Every day Contact prescribing physician if questions or concerns \.br\ Unchanged rivaroxaban (Xarelto 20 mg oral tablet) 1 Tablets By Mouth Once a day (in the evening) Contact prescribing physician if questions or concerns \.br\ Unchanged ubiquinone (Co Q-10) See instructions 1 tab po daily Contact prescribing physician if questions or concerns \.br\ Pharmacy Information\.br\ [facility]/pharmacy #[id number]: [address], [place] [id number] [phone]\.br\ Test Results\.br\ Urnls Dip Stick Auto w/o Microscopy POC [id number] (02/16/2023)\.br\ Bilirubin Urine Dipstick - Negative\.br\ Blood Urine Dipstick - Negative\.br\ Glucose Urine Dipstick - Negative\.br\ Ketones Urine Dipstick - Negative\.br\ Leukocytes Urine Dipstick - Negative\.br\ Nitrite Urine Dipstick - Negative\.br\ Protein Urine Dipstick - Negative\.br\ Specific [place] Urine Dipstick - 1.015\.br\ Urine Appearance Urine Dipstick - Clear\.br\ Urine Color Urine Dipstick - Yellow\.br\ Urobilinogen Urine Dipstick - Normal 0.2-1 EU/dl\.br\ pH Urine Dipstick - 5.5\.br\ Allergies\.br\ predniSONE (Unknown, AOF)\.br\ sulfamethoxazole\ .br\ Problems\.br\ Ongoing - Any problem that you are currently receiving treatment for.\.br\ Atherosclerosis of abdominal aorta\.br\ ATRIAL FIBRILLATION\.br\ BPH with urinary obstruction\.br\ Chest wall contusion\.br\ Claustrophobia\.b r\ Constipation\.br\ Cough\.br\ Dizziness\.br\ Fidgeting\.br\ Foreskin problem\.br\ KELI (generalized anxiety disorder)\.br\ GERD (gastroesophageal reflux disease)\.br\ Groin rash\.br\ HTN - Hypertension\.br\ Insomnia\.br\ Mixed hyperlipidemia\.b r\ Panic attacks\.br\ SOB (shortness of breath)\.br\ Historical - Any problem that you are no longer receiving treatment for.\.br\ TIA\.br\ Education Materials\.br\ Benign Prostatic Hyperplasia\.br\ \.br\ Benign prostatic hyperplasia (BPH) is an enlarged prostate gland that is caused by the normal aging process. The prostate may get bigger as a man gets older. The condition is not caused by cancer. The prostate is a walnut-sized gland that is involved in the production of semen. It is located in front of the rectum and below the bladder. The bladder stores urine. The urethra carries stored urine out of the body.\.br\ An enlarged prostate can press on the urethra. This can make it harder to pass urine. The buildup of urine in the bladder can cause infection. Back pressure and infection may progress to bladder damage and kidney (renal) failure.\.br\ What are the causes?\.br\ This condition is part of the normal aging process. However, not all men develop problems from this condition. If the prostate enlarges away from the urethra, urine flow will not be blocked. If it enlarges toward the urethra and compresses it, there will be problems passing urine.\.br\ What increases the risk?\.br\ This condition is more likely to develop in men older than 50 years.\.br\ What are the signs or symptoms?\.br\ Symptoms of this condition include:\.br\ ? \.br\ Getting up often during the night to urinate.\.br\ ? \.br\ Needing to urinate frequently during the day.\.br\ ? \.br\ Difficulty starting urine flow.\.br\ ? \.br\ Decrease in size and strength of your urine stream.\.br\ ? \.br\ Leaking (dribbling) after urinating.\.br\ ? \.br\ Inability to pass urine. This needs immediate treatment.\.br\ ? \.br\ Inability to completely empty your bladder.\.br\ ? \.br\ Pain when you pass urine. This is more common if there is also an infection.\.br\ ? \.br\ Urinary tract infection (UTI).\.br\ How is this diagnosed?\.br\ This condition is diagnosed based on your medical history, a physical exam, and your symptoms. Tests will also be done, such as:\.br\ ? \.br\ A post-void bladder scan. This measures any amount of urine that may remain in your bladder after you finish urinating.\.br\ ? \.br\ A digital rectal exam. In a rectal exam, your health care provider checks your prostate by putting a lubricated, gloved finger into your rectum to feel the back of your prostate gland. This exam detects the size of your gland and any abnormal lumps or growths.\.br\ ? \.br\ An exam of your urine (urinalysis).\.br \ ? \.br\ A prostate specific antigen (PSA) screening. This is a blood test used to screen for prostate cancer.\.br\ ? \.br\ An ultrasound. This test uses sound waves to electronically produce a picture of your prostate gland.\.br\ Your health care provider may refer you to a specialist in kidney and prostate diseases (urologist).\.br\ How is this treated?\.br\ Once symptoms begin, your health care provider will monitor your condition (active surveillance or watchful waiting). Treatment for this condition will depend on the severity of your condition. Treatment may include:\.br\ ? \.br\ Observation and yearly exams. This may be the only treatment needed if your condition and symptoms are mild.\.br\ ? \.br\ Medicines to relieve your symptoms, including:\.br\ ? \.br\ Medicines to shrink the prostate.\.br\ ? \.br\ Medicines to relax the muscle of the prostate.\.br\ ? \.br\ Surgery in severe cases. Surgery may include:\.br\ ? \.br\ Prostatectomy. In this procedure, the prostate tissue is removed completely through an open incision or with a laparoscope or robotics.\.br\ ? \.br\ Transurethral resection of the prostate (TURP). In this procedure, a tool is inserted through the opening at the tip of the penis (urethra). It is used to cut away tissue of the inner core of the prostate. The pieces are removed through the same opening of the penis. This removes the blockage.\.br\ ? \.br\ Transurethral incision (TUIP). In this procedure, small cuts are made in the prostate. This lessens the prostate's pressure on the urethra.\.br\ ? \.br\ Transurethral microwave thermotherapy (TUMT). This procedure uses microwaves to create heat. The heat destroys and removes a small amount of prostate tissue.\.br\ ? \.br\ Transurethral needle ablation (TUNA). This procedure uses radio frequencies to destroy and remove a small amount of prostate tissue.\.br\ ? \.br\ Interstitial laser coagulation (ILC). This procedure uses a laser to destroy and remove a small amount of prostate tissue.\.br\ ? \. [facility] Patient Correspondenceon Patient Correspondence [id number]. 00CD:127 Normal [facility] Patient Educationon 02-17-20 23 Patient Education Urology Benign Prostatic Hyperplasia Benign prostatic hyperplasia (BPH) is an enlarged prostate gland that is caused by the normal aging process. The prostate may get bigger as a man gets older. The condition is not caused by cancer. The prostate is a walnut-sized gland that is involved in the production of semen. It is located in front of the rectum and below the bladder. The bladder stores urine. The urethra carries stored urine out of the body. An enlarged prostate can press on the urethra. This can make it harder to pass urine. The buildup of urine in the bladder can cause infection. Back pressure and infection may progress to bladder damage and kidney (renal) failure. What are the causes? This condition is part of the normal aging process. However, not all men develop problems from this condition. If the prostate enlarges away from the urethra, urine flow will not be blocked. If it enlarges toward the urethra and compresses it, there will be problems passing urine. What increases the risk? This condition is more likely to develop in men older than 50 years. What are the signs or symptoms? Symptoms of this condition include: ? Getting up often during the night to urinate. ? Needing to urinate frequently during the day. ? Difficulty starting urine flow. ? Decrease in size and strength of your urine stream. ? Leaking (dribbling) after urinating. ? Inability to pass urine. This needs immediate treatment. ? Inability to completely empty your bladder. ? Pain when you pass urine. This is more common if there is also an infection. ? Urinary tract infection (UTI). How is this diagnosed? This condition is diagnosed based on your medical history, a physical exam, and your symptoms. Tests will also be done, such as: ? A post-void bladder scan. This measures any amount of urine that may remain in your bladder after you finish urinating. ? A digital rectal exam. In a rectal exam, your health care provider checks your prostate by putting a lubricated, gloved finger into your rectum to feel the back of your prostate gland. This exam detects the size of your gland and any abnormal lumps or growths. ? An exam of your urine (urinalysis). ? A prostate specific antigen (PSA) screening. This is a blood test used to screen for prostate cancer. ? An ultrasound. This test uses sound waves to electronically produce a picture of your prostate gland. Your health care provider may refer you to a specialist in kidney and prostate diseases (urologist). How is this treated? Once symptoms begin, your health care provider will monitor your condition (active surveillance or watchful waiting). Treatment for this condition will depend on the severity of your condition. Treatment may include: ? Observation and yearly exams. This may be the only treatment needed if your condition and symptoms are mild. ? Medicines to relieve your symptoms, including: ? Medicines to shrink the prostate. ? Medicines to relax the muscle of the prostate. ? Surgery in severe cases. Surgery may include: ? Prostatectomy. In this procedure, the prostate tissue is removed completely through an open incision or with a laparoscope or robotics. ? Transurethral resection of the prostate (TURP). In this procedure, a tool is inserted through the opening at the tip of the penis (urethra). It is used to cut away tissue of the inner core of the prostate. The pieces are removed through the same opening of the penis. This removes the blockage. ? Transurethral incision (TUIP). In this procedure, small cuts are made in the prostate. This lessens the prostate's pressure on the urethra. ? Transurethral microwave thermotherapy (TUMT). This procedure uses microwaves to create heat. The heat destroys and removes a small amount of prostate tissue. ? Transurethral needle ablation (TUNA). This procedure uses radio frequencies to destroy and remove a small amount of prostate tissue. ? Interstitial laser coagulation (ILC). This procedure uses a laser to destroy and remove a small amount of prostate tissue. ? Transurethral electrovaporization (TUVP). This procedure uses electrodes to destroy and remove a small amount of prostate tissue. ? Prostatic urethral lift. This procedure inserts an implant to push the lobes of the prostate away from the urethra. Follow these instructions at home: ? Take halp-zpc-gekqfju and prescription medicines only as told by your health care provider. ? Monitor your symptoms for any changes. Contact your health care provider with any changes. ? Avoid drinking large amounts of liquid before going to bed or out in public. ? Avoid or reduce how much caffeine or alcohol you drink. ? Give yourself time when you urinate. ? Keep all follow-up visits. This is important. Contact a health care provider if: ? You have unexplained back pain. ? Your symptoms do not get better with treatment. ? You develop side effects from the medicine (more content not included)... Normal [facility] Urology Office/Clinic Noteon 02-16-2023 Urology Office/Clinic Note Chief Complaint 1yr PSA HPI Staff Former RWR pt Pt is here a 1 year F/U with PSA Previous Dx; BPH with urinary obstruction PSA 01/21/2023- 0.34 *finasteride 5 mg daily* 2x/night. Denies frequency during the day. Denies all urinary complaints. Is concerned with foreskin being tied into the penis Would also like to discuss rash in groin area. Has been using OTC cream. Some improvement. History of Present Illness staff HPI reviewed and agree. Review of Systems PHQ Score Initial Depression Screen Score: 0 no fever, chills, malaise, myalgia. no rash/lesions. no chest pain, palpitations, or SOB. no abdominal pain, nausea, vomiting. no unilateral calf swelling, redness, pain Physical Exam Vitals & Measurements HR: 68(Peripheral) RR: 16 BP: 134/76 HT: 70 in HT: 178 cm WT: 95.6 kg WT: 210.32 lb BMI: 30.17 General: nontoxic, NAD Mouth: moist mucosa Lungs: normal respiratory effort Cardio: regular rate, good distal perfusion Abdomen: nondistended, no suprapubic distention or tenderness, no CVA tenderness Neurologic: Grossly normal Skin: No rashes or suspicious lesions : left side of glans has some adhesions to the foreskin just proximal. no signs of infection. mild inguinal rash noted bilat, appears fungal. Assessment/Plan RWR pt. 1. BPH with urinary obstruction (N40.1: Benign prostatic hyperplasia with lower urinary tract symptoms) PSA 12/12/20 - 0.37 12/25/21 - 0.26 01/21/23 - 0.34 IPSS 13(14) Taking finasteride daily. no bothersome side effects. pleased w sx control. UA today is clear/negative no signs of any infections. 2x/night. Denies frequency during the day. Denies all urinary complaints. Overall pt is doing well and does not have any urinary complaints at this time, and his PSA is within normal range. Will continue to monitor in a year. -Will order repeat PSA. -Refills for Finasteride sent to pharm on file. 2. Foreskin problem (N47.8: Other disorders of prepuce) simple adhesions. not interfering with urination or ADLS. no infection. no treatment needed at this time. 3. Groin rash (R21: Rash and other nonspecific skin eruption) Pt states that he has a rash in groin area. Has been using OTC cream. Some improvement. Advised pt to continue using the the anti-fungal cream and to try to keep the area dry. Follow up in 1 yr w/PSA. All questions/concerns were discussed. Pt to call the office if he encounters any issues prior. Pt acknowledges understanding. Follow-up With When Contact Information CHANTEL NORRIS, IVONNE Hernandez, URL In 1 year [address] [place] [address] Additional Instructions: w/PSA Patient Education Benign Prostatic Hyperplasia I, Agnes Victoria, personally scribed for Ivonne Grant PA-C on 02/16/2023 12:03:47. . Documentation recorded by the scribmary Victoria accurately reflects the services(s) I performed and decisions made by me. Authenticated by Ivonne Grant PA-C on 02/16/2023 12:21:19. Problem List/Past Medical History Ongoing Atherosclerosis of abdominal aorta ATRIAL FIBRILLATION BPH with urinary obstruction Chest wall contusion Claustrophobia Constipation Cough Dizziness Fidgeting Foreskin problem KELI (generalized anxiety disorder) GERD (gastroesophageal reflux disease) Groin rash HTN - Hypertension Insomnia Mixed hyperlipidemia Panic attacks SOB (shortness of breath) Historical TIA Procedure/Surgical History Open heart surgery (11/05/2022), Cystoscopy (07/13/2018), Ankle, left, Back Surgery, Cataract extraction, Colonoscopy. Medications Back Brace, See Instructions clotrimazole Top 1% Crm, 1 dale, Topical, BID, 1 refills Co Q-10, See Instructions finasteride 5 mg Tab, 5 mg= 1 tab(s), Oral, Daily, 3 refills Lexapro 5 mg oral tablet, 5 mg= 1 tab(s), Oral, Daily, 3 refills Lipitor, 20 mg, Oral, Once a day (at bedtime) losartan 25 mg Tab, 25 mg= 1 tab(s), Oral, Daily, 1 refills melatonin 5 mg oral tablet, 5 mg= 1 tab(s), Oral, Once a day (at bedtime), 1 refills Pantoprazole [address] Tab, 40 mg= 1 tab(s), Oral, Daily, 3 refills triamcinolone Top 0.1% Crm, See Instructions, 1 refills Xarelto 20 mg oral tablet, 20 mg= 1 tab(s), Oral, qPM Allergies predniSONE (Unknown, AOF) sulfamethoxazole Social History Alcohol - Denies Alcohol Use, 10/20/2018 Exercise Substance Abuse - Denies Substance Abuse, 10/20/2018 Current, 07/23/2019 Tobacco - Denies Tobacco Use, 04/22/2022 Never (less than 100 in lifetime) Tobacco Use:. Never Smokeless Tobacco Use:. Household tobacco concerns: No., 02/16/2023 Family History Acute myocardial infarction: Father. Diabetes mellitus type 2: Mother. Primary malignant neoplasm of lung: Father. Prostate cancer: Brother. Immunizations Vaccine Date Status Comments influenza virus vaccine, inactivated 04/23/2022 Given influenza virus vaccine, inactivated 02/04/2021 (more content not included)... [facility] Comment on above: Result Comment: Elec tronically Signed By: IVONNE GRANT PA-C\.br\Date and Time Signed: 02/16/23 12:21 EDT\.br\Electronically Co-Signed By: Agnes Victoria\.br\Date and Time Co-Signed: 02/16/23 12:04 EDT CNOVon 02-15-2023 CNOV [facility] [id number] 02-15-2023 ECG01 [facility] Lab Reportson 02-02-2023 Lab Reports [id number] .00CD:127 [facility] CNOVon 01-27-2023 CNOV [facility] CNPNon 01-22-2023 CNPN [facility] Plan of Care - PT/OT/Speecho n 01-20-2023 Plan of Care - PT/OT/Speech [id number] .00CD:127 [facility] CNOVon 01-14-2023 CNOV Office Visit ([facility] ) JORDI FRANCO ([id number]) 1940 M HVI Xcld* Date Time Provider Department 01/14/23 1:30 PM BARBARA WARNER [facility] During your visit today, we recorded the following information about you: Pulse Blood pressure Weight Height 95/minute 120/74 90.3 kg 1.778 m Barbara Warner APRN.RAMÓN ALEXANDER 01/14/2023 1:50 PM Signed [facility] Department of Cardiovascular Medicine SECTION OF CLINICAL CARDIOLOGY OUTPATIENT VISIT DATE January 14, 2023 OUTPATIENT VISIT TYPE ESTABLISHED PRIMARY CARE PHYSICIAN: Raul Dumont [address] [place] [address] REFERRING PHYSICIAN: Hugo Solano [address] [facility] [address] CHIEF COMPLAINT: Established Patient and Hospital Follow Up HISTORY OF PRESENT ILLNESS: Mr. Franco is a 82 year old male who presents today for a cardiovascular medicine follow-up visit. Had AVR and MVR at on 12/04/2022. Has been feeling well since surgery. Reports he stopped taking Toprol XL as she thought he was only to take for 6 weeks. We discussed importance of HR control following surgery. Resting HR today is in the 90s. He denies chest pain, shortness of breath, orthopnea, cough, edema, palpitations, PND, lightheadedness or syncope. PAST CARDIAC HISTORY: See detailed impression for past cardiac history. PAST MEDICAL HISTORY Diagnosis Date Ankle instability left Aortic stenosis Asthma exercise Atrial fibrillation (HCC) BPH (benign prostatic hyperplasia) Bronchitis Cancer (HCC) basal cell Cardiac insufficiency following cardiac surgery 12/04/2022 Cardiomegaly 09/22/2012 borderline Dyslipidemia [place] (hard of hearing) Hypertension Mitral regurgitation Pinched nerve in neck Spinal stenosis Stroke (HCC) 06/07/2007 TIA (transient ischemic attack) 06/07/2007 [place] PAST SURGICAL HISTORY Procedure Laterality Date ATRIAL FIBRILLATION/FLUTTER ABLATION 2001,2003, 2012 - Radiofrequency ablation for atrial fibrillation BACK SURGERY HX Disc Surgery FOOT/TOES SURGERY PROC UNLISTED 02/05/2010 Performed by CHAITANYA WATKINS at [facility] [place] GASTROCNEMIUS RECESSION 02/05/2010 Performed by CHAITANYA WATKINS at [facility] [place] PAST SURGICAL HISTORY OF 2006 endoscopic plantar fasciotomy PAST SURGICAL HISTORY OF 04/24/2013 ablation SKIN SURGERY HX 2020 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 3 cm with a 5 cm complex wound closure ([facility]) TUR CRYOSURG REM OF PROSTATE 2006 Photoselective vaporization of the prostate with Greenlight [facility] ([facility]) SOCIAL HISTORY Social History Tobacco Use Smoking status: Never Smokeless tobacco: Never Substance Use Topics Alcohol use: No Drug use: No FAMILY HISTORY Problem Relation Age of Onset Ischemic Heart Disease Father 52 [place] other (cancer, lung) Father 56 yrs Asthma Sister Asthma Grandchild No Family History Other colon cancer No Family History Other colon polyps other (heart disease) Brother open heart surgery ALLERGIES: ALLERGIES Allergen Reactions Grass Pollen Unknown Nasonex [Mometasone] Other: See Comments Made him feel very hot and very jittery and shakey. Prednisone Mental Status Change Sulfa (Sulfonamide * Unknown MEDICATIONS: atorvastatin (LIPITOR) 10 mg tablet TAKE 1 TABLET BY MOUTH EVERY DAY XARELTO 20 mg tablet TAKE 1 TABLET BY MOUTH ONCE DAILY. PLEASE CALL THE OFFICE FOR AN APPOINTMENT. finasteride (PROSCAR) 5 mg tablet escitalopram oxalate (LEXAPRO) 5 mg tablet TAKE 1 TABLET BY MOUTH ONE TIME A DAY pantoprazole DR (PROTONIX) 40 mg tablet Take 1 tablet by mouth once daily. metoprolol succinate ER (TOPROL XL) 25 mg 24 hr tablet Take 1 tablet by mouth once daily. magnesium hydroxide (MOM) 400 mg/5 mL suspension Take 30 mL by mouth once daily as needed. docusate sodium (COLACE) 100 mg capsule Take 1 capsule by mouth twice daily as needed for constipation. (Patient not taking: Reported on 01/14/2023) polyethylene glycol 3350 (MIRALAX) 17 gram/dose powder Take 17 g by mouth once daily. Dissolve dose in 4 - 8 ounces of liquid and take as directed. acetaminophen (TYLENOL) 325 mg tablet Take 2 tablets by mouth every 4 hours as needed (post-op pain). (Patient not taking: Reported on 01/14/2023) aspirin 81 mg chewable tablet Take 1 tablet by mouth once daily. senna-docusate (SENNA-S) 8.6-50 mg per tablet Take 1 tablet by mouth twice daily. Continue while as needed thereafter for mild post-op constipation AND stool softening. furosemide (LASIX) 20 mg tablet Take 1 tablet by mouth once daily for 7 days. mag [id number] rt xt 500-3,000-150 mg-unit-mg tab Take by mouth. (Patient not taking: Reported on 12/16/2022) lysine 500 mg tab Take by mouth. (Patient not taking: Reported on 12/16/2022) Vitamin E Acetate, Bulk, 12 (more content not included)... Normal [facility] EKGon 01-14-2023 Electrocardiogram Systolic BP : 120 mmHg Diastolic BP : 74 mmHg Ventricular Rate : 95 BPM Atrial Rate : 95 BPM P-R Interval : 166 ms QRS Duration : 98 ms Q-T Interval : 366 ms QTC Calculation(Bazett) : 459 ms Calculated P [place] : 10 degrees Calculated R [place] : -48 degrees Calculated T [place] : 32 degrees NORMAL SINUS RHYTHM LEFT AXIS DEVIATION ABNORMAL ECG Confirmed by SAVANNA ZHANG MD ([id number]) on 12/01/2023 9:36:11 PM NAME : JORDI FRANCO PID : [id number] : 1940 Gender : Male Race : ORD : Procedure Date : Jan 14 2023 13:15:35 Edit Date : Dec 01 2023 21:36:14 Diagnosis: NORMAL SINUS RHYTHM LEFT AXIS DEVIATION ABNORMAL ECG Confirmed by SAVANNA ZHANG MD ([id number]) on 12/01/2023 9:36:11 PM Test Reason : Location : [facility] : [facility] Overread By : SAVANNA ZHANG MD Edited By : SAVANNA ZHANG MD Referred By : HUGO SOLANO Acquired by : , [facility] CNPTOUTREACHon 01-06-2023 CNPTOUTREA Normal [facility] CBC panel Auto (Bld)on 12-16 Erythrocyte distribution width (RBC) [Ratio] 14.5 % Normal 11.5-15.0 [facility] [facility] Comment on above: Order Comment: Speci men Type: BLOOD SPECIMENOrdering Facility: [facility] Address: [address] [address] Performed By: #### 5 8410-2 ####[facility] LABCLIA [id number] [place] [address] [place] Hematocrit (Bld) [Volume fraction] 33.5 % Low 39.0-51.0 [facility] Comment on above: Order Comment: Speci men Type: BLOOD SPECIMENOrdering Facility: [facility] Address: [address] [address] Performed By: #### 5 8410-2 ####[facility] LABIA [id number] [place] [address] [place] Hemoglobin (Bld) [Mass/Vol] 10.4 g/dL Low 13.0-17.0 [facility] Comment on above: Order Comment: Speci men Type: BLOOD SPECIMENOrdering Facility: [facility] Address: [address] [place] [address] Performed By: #### 5 8410-2 ####[facility] LABIA [id number] [place] [address] [place] MCH (RBC) [Entitic mass] 29.9 pg Normal 26.0-34.0 [facility] Comment on above: Order Comment: Speci men Type: BLOOD SPECIMENOrdering Facility: [facility] Address: [address] [place], [place] [address] Performed By: #### 5 8410-2 ####[facility] LABIA [id number] [address] [place] MCHC (RBC) [Mass/Vol] 31.0 g/dL Normal 30.5-36.0 [facility] Comment on above: Order Comment: Speci men Type: BLOOD SPECIMENOrdering Facility: [facility] Address: [address] [place], [place] [address] Performed By: #### 5 8410-2 ####[facility] LABIA [id number] [place] [address] [place] MCV (RBC) [Entitic vol] 96.3 fL Normal 80.0-100.0 [facility] Comment on above: Order Comment: Speci men Type: BLOOD SPECIMENOrdering Facility: [facility] Address: [address] [place], [place] [address] Performed By: #### 5 8410-2 ####[facility] LABIA [id number] [place] [address] [place] Nucleated RBC (Bld) [#/Vol] 10*3/uL Normal <0.01 [facility] Comment on above: Order Comment: Speci men Type: BLOOD SPECIMENOrdering Facility: [facility] Address: [address] [place] [address] Performed By: #### 5 8410-2 ####[facility] LABIA [id number] [place] [address] [place] Platelet mean volume (Bld) [Entitic vol] 8.5 fL Low 9.0-12.7 [facility] Comment on above: Order Comment: Speci men Type: BLOOD SPECIMENOrdering Facility: [facility] Address: [address] [place] [address] Performed By: #### 5 8410-2 ####[facility] LABIA [id number] [place] [address] [place] Platelets (Bld) [#/Vol] 370 10*3/uL Normal 150-400 [facility] Comment on above: Order Comment: Speci men Type: BLOOD SPECIMENOrdering Facility: [facility] Address: [address] [place] [address] Performed By: #### 5 8410-2 ####[facility] LABIA [id number] [place] [address] [place] RBC (Bld) [#/Vol] 3.48 10*6/uL Low 4.20-6.00 [facility] Comment on above: Order Comment: Speci men Type: BLOOD SPECIMENOrdering Facility: [facility] Address: [address] [place], [place] [address] Performed By: #### 5 8410-2 ####[facility] LABCLIA [id number] [place] [address] [place] WBC (Bld) [#/Vol] 9.75 10*3/uL Normal 3.70-11.00 [facility] Comment on above: Order Comment: Speci men Type: BLOOD SPECIMENOrdering Facility: [facility] Address: [address] [place] [address] Performed By: #### 5 8410-2 ####[facility] LABCLIA [id number] [place] [address] [place] CNOVon 12-16-2022 CNOV Normal [facility] Comprehensive metabolic 2000 panelon 12-16-2022 Albumin [Mass/Vol] 3.5 g/dL Low 3.9-4.9 [facility] Comment on above: Order Comment: Speci men Type: BLOOD SPECIMENOrdering Facility: [facility] Address: [address] [place] [address] Performed By: #### 2 4323-8 ####[facility] LABCLIA [id number] [place] [address] [place] ALP [Catalytic activity/Vol] 130 U/L High 38-113 [facility] Comment on above: Order Comment: Speci men Type: BLOOD SPECIMENOrdering Facility: [facility] Address: [address] [place] [address] Performed By: #### 2 4323-8 ####[facility] LABCLIA [id number] [place] [address] [place] ALT [Catalytic activity/Vol] 22 U/L Normal 10-54 [facility] Comment on above: Order Comment: Speci men Type: BLOOD SPECIMENOrdering Facility: [facility] Address: [address] [place], [place] [address] Performed By: #### 2 4323-8 ####[facility] LABCLIA [id number] [place] [address] [place] Anion gap [Moles/Vol] 9 mmol/L Normal 9-18 [facility] Comment on above: Order Comment: Speci men Type: BLOOD SPECIMENOrdering Facility: [facility] Address: [address] Performed By: #### 2 4323-8 ####[facility] LABCLIA [id number] [place] [address] [place] AST [Catalytic activity/Vol] 21 U/L Normal 14-40 [facility] Comment on above: Order Comment: Speci men Type: BLOOD SPECIMENOrdering Facility: [facility] Address: [address] Performed By: #### 2 4323-8 ####[facility] LABCLIA [id number] [place] [address] [place] Bilirubin [Mass/Vol] 0.3 mg/dL Normal 0.2-1.3 [facility] Comment on above: Order Comment: Speci men Type: BLOOD SPECIMENOrdering Facility: [facility] Address: [address] Performed By: #### 2 4323-8 ####[facility] LABIA [id number] [place] [address] [place] Calcium [Mass/Vol] 9.3 mg/dL Normal 8.5-10.2 [facility] Comment on above: Order Comment: Speci men Type: BLOOD SPECIMENOrdering Facility: [facility] Address: [address] Performed By: #### 2 4323-8 ####[facility] LABCLIA [id number] [place] [address] [place] Chloride [Moles/Vol] 97 mmol/L Normal 97-105 [facility] Comment on above: Order Comment: Speci men Type: BLOOD SPECIMENOrdering Facility: [facility] Address: [address] Performed By: #### 2 4323-8 ####[facility] LABCLIA [id number] [place] [address] [place] CO2 [Moles/Vol] 27 mmol/L Normal 22-30 [facility] Comment on above: Order Comment: Speci men Type: BLOOD SPECIMENOrdering Facility: [facility] Address: [address] [place] [address] Performed By: #### 2 4323-8 ####[facility] LABCLIA [id number] [place] [address] [place] Creatinine [Mass/Vol] 1.03 mg/dL Normal 0.73-1.22 [facility] Comment on above: Order Comment: Speci men Type: BLOOD SPECIMENOrdering Facility: [facility] Address: [address] [place] [address] Performed By: #### 2 4323-8 ####[facility] LABCLIA [id number] [address] [place] ESTIMATED GLOMERULAR FILTRATION RATE 72 mL/min/1.73m??? Normal >=60 [facility] Comment on above: Order Comment: Speci men Type: BLOOD SPECIMENOrdering Facility: [facility] Address: [address] [place] [address] Result Comment: Emely mated Glomerular Filtration Rate (eGFR) is calculated using the 2020 CKD-EPI creatinine equation. This equation utilizes serum creatinine, sex, and age as parameters. The creatinine assay has traceable calibration to isotope dilution-mass spectrometry. Refer to KDIGO guidelines for clinical interpretation. In patients with unstable renal function, e.g. those with acute kidney injury, the eGFR may not accurately reflect actual GFR. Performed By: #### 2 4323-8 ####[facility] LABCLIA [id number] [place] [address] [place] Glucose [Mass/Vol] 101 mg/dL High 74-99 [facility] Comment on above: Order Comment: Speci men Type: BLOOD SPECIMENOrdering Facility: [facility] Address: [address] [place] [address] Result Comment: The [place] [employer] (ADA) provides guidance for cutoff values for fasting glucose and random glucose. The ADA defines fasting as no caloric intake for at least 8 hours. Fasting plasma glucose results between 100 to 125 mg/dL indicate increased risk for diabetes (prediabetes).Fasting plasma glucose results greater than or equal to 126 mg/dL meet the criteria for diagnosis of diabetes. In the absence of unequivocal hyperglycemia, results should be confirmed by repeat testing. In a patient with classic symptoms of hyperglycemia or hyperglycemic crisis, random plasma glucose results greater than or equal to 200 mg/dL meet the criteria for diagnosis of diabetes.Reference: Standards of Medical Care in Diabetes 2016, [place] [employer]. Diabetes Care. 2016.39(Suppl 1). Performed By: #### 2 4323-8 ####[facility] LABCLIA [id number] [place] [address] [place] Potassium [Moles/Vol] 4.7 mmol/L Normal 3.7-5.1 [facility] Comment on above: Order Comment: Speci men Type: BLOOD SPECIMENOrdering Facility: [facility] Address: [address] [address] Performed By: #### 2 4323-8 ####[facility] LABCLIA [id number] [place] [address] [place] Protein [Mass/Vol] 6.3 g/dL Normal 6.3-8.0 [facility] Comment on above: Order Comment: Speci men Type: BLOOD SPECIMENOrdering Facility: [facility] Address: [address] Performed By: #### 2 4323-8 ####[facility] LABCLIA [id number] [place] [address] [place] Sodium [Moles/Vol] 133 mmol/L Low 136-144 [facility] Comment on above: Order Comment: Speci men Type: BLOOD SPECIMENOrdering Facility: [facility] Address: [address] Performed By: #### 2 4323-8 ####[facility] LABCLIA [id number] [place] [address] [place] Urea nitrogen [Mass/Vol] 13 mg/dL Normal 9-24 [facility] Comment on above: Order Comment: Speci men Type: BLOOD SPECIMENOrdering Facility: [facility] Address: [address] [address] Performed By: #### 2 4323-8 ####[facility] LABCLIA [id number] [place] [address] [place] ECG COMPLETEon 12-16-2022 ECG COMPLETE Normal [facility] XR CHEST 2V FRONTAL/LATon XR CHEST 2V FRONTAL/LAT Normal [facility] CNPNon 12-11-2022 CNPN Normal [facility] CNPNon 12-10-2022 CNPN Normal [facility] CASE MGT INIT ASSESon 2022 CASE MGT INIT ASSES Normal [facility] Basic metabolic 2000 panelon 12-08-2022 Anion gap [Moles/Vol] 10 mmol/L Normal 9-18 [facility] Comment on above: Order Comment: Speci men Type: BLOOD SPECIMENOrdering Facility: [facility] Address: [address] [place] [address] Performed By: #### 2 4321-2 ####[facility] LABCLIA [id number] [place] [address] [place] Calcium [Mass/Vol] 9.3 mg/dL Normal 8.5-10.2 [facility] Comment on above: Order Comment: Speci men Type: BLOOD SPECIMENOrdering Facility: [facility] Address: [address] [place] [address] Performed By: #### 2 4321-2 ####[facility] LABCLIA [id number] [address] [address] [place] Chloride [Moles/Vol] 97 mmol/L Normal 97-105 [facility] Comment on above: Order Comment: Speci men Type: BLOOD SPECIMENOrdering Facility: [facility] Address: [address] [address] Performed By: #### 2 4321-2 ####[facility] LABCLIA [id number] [place] [address] [place] CO2 [Moles/Vol] 28 mmol/L Normal 22-30 [facility] Comment on above: Order Comment: Speci men Type: BLOOD SPECIMENOrdering Facility: [facility] Address: [address] [address] Performed By: #### 2 4321-2 ####[facility] LABIA [id number] [address] OF [facility] Creatinine [Mass/Vol] 1.06 mg/dL Normal 0.73-1.22 [facility] Comment on above: Order Comment: Speci men Type: BLOOD SPECIMENOrdering Facility: [facility] Address: [address] [address] Performed By: #### 2 4321-2 ####[facility] LABIA [id number] [address] ESTIMATED GLOMERULAR FILTRATION RATE 70 mL/min/1.73m??? Normal >=60 [facility] Comment on above: Order Comment: Speci men Type: BLOOD SPECIMENOrdering Facility: [facility] Address: [address] [place] [address] Result Comment: Emely mated Glomerular Filtration Rate (eGFR) is calculated using the 2020 CKD-EPI creatinine equation. This equation utilizes serum creatinine, sex, and age as parameters. The creatinine assay has traceable calibration to isotope dilution-mass spectrometry. Refer to KDIGO guidelines for clinical interpretation. In patients with unstable renal function, e.g. those with acute kidney injury, the eGFR may not accurately reflect actual GFR. Performed By: #### 2 4321-2 ####[facility] LABCLIA [id number] [place] [address] [place] Glucose [Mass/Vol] 129 mg/dL High 74-99 [facility] Comment on above: Order Comment: Speci men Type: BLOOD SPECIMENOrdering Facility: [facility] Address: [address] [place] [address] Result Comment: The [place] [employer] (ADA) provides guidance for cutoff values for fasting glucose and random glucose. The ADA defines fasting as no caloric intake for at least 8 hours. Fasting plasma glucose results between 100 to 125 mg/dL indicate increased risk for diabetes (prediabetes).Fasting plasma glucose results greater than or equal to 126 mg/dL meet the criteria for diagnosis of diabetes. In the absence of unequivocal hyperglycemia, results should be confirmed by repeat testing. In a patient with classic symptoms of hyperglycemia or hyperglycemic crisis, random plasma glucose results greater than or equal to 200 mg/dL meet the criteria for diagnosis of diabetes.Reference: Standards of Medical Care in Diabetes 2016, [place] [employer]. Diabetes Care. 2016.39(Suppl 1). Performed By: #### 2 4321-2 ####[facility] LABCLIA [id number] [place] [address] [place] Potassium [Moles/Vol] 4.2 mmol/L Normal 3.7-5.1 [facility] Comment on above: Order Comment: Speci men Type: BLOOD SPECIMENOrdering Facility: [facility] Address: [address] [place] [address] Performed By: #### 2 4321-2 ####[facility] LABCLIA [id number] [place] [address] [place] Sodium [Moles/Vol] 135 mmol/L Low 136-144 [facility] Comment on above: Order Comment: Speci men Type: BLOOD SPECIMENOrdering Facility: [facility] Address: [address] [place] [address] Performed By: #### 2 4321-2 ####[facility] LABCLIA [id number] [place] [address] [place] Urea nitrogen [Mass/Vol] 23 mg/dL Normal 9-24 [facility] Comment on above: Order Comment: Speci men Type: BLOOD SPECIMENOrdering Facility: [facility] Address: [address] [place] [address] Performed By: #### 2 4321-2 ####[facility] LABIA [id number] [address] [place] CBC panel Auto (Bld)on 12-08 Erythrocyte distribution width (RBC) [Ratio] 14.6 % Normal 11.5-15.0 [facility] Comment on above: Order Comment: Speci men Type: BLOOD SPECIMENOrdering Facility: [facility] Address: [address] [place] [address] Performed By: #### 5 8410-2 ####[facility] LABIA [id number] [address] [place] Hematocrit (Bld) [Volume fraction] 35.2 % Low 39.0-51.0 [facility] Comment on above: Order Comment: Speci men Type: BLOOD SPECIMENOrdering Facility: [facility] Address: [address] [place], [place] [address] Performed By: #### 5 8410-2 ####[facility] LABIA [id number] [address] [place] Hemoglobin (Bld) [Mass/Vol] 11.5 g/dL Low 13.0-17.0 [facility] Comment on above: Order Comment: Speci men Type: BLOOD SPECIMENOrdering Facility: [facility] Address: [address] [place], [place] [address] Performed By: #### 5 8410-2 ####[facility] LABIA [id number] [place] [address] [place] MCH (RBC) [Entitic mass] 30.1 pg Normal 26.0-34.0 [facility] Comment on above: Order Comment: Speci men Type: BLOOD SPECIMENOrdering Facility: [facility] Address: [address] Performed By: #### 5 8410-2 ####[facility] [id number] [address] [place] [facility] MCHC (RBC) [Mass/Vol] 32.7 g/dL Normal 30.5-36.0 [facility] Comment on above: Order Comment: Speci men Type: BLOOD SPECIMENOrdering Facility: [facility] Address: [address] [place], [place] [address] Performed By: #### 5 8410-2 ####[facility] [id number] [place] [address] [place] MCV (RBC) [Entitic vol] 92.1 fL Normal 80.0-100.0 [facility] Comment on above: Order Comment: Speci men Type: BLOOD SPECIMENOrdering Facility: [facility] Address: [address] [place], [place] [address] Performed By: #### 5 8410-2 ####[facility] [id number] [place] [address] [place] Nucleated RBC (Bld) [#/Vol] 10*3/uL Normal <0.01 [facility] Comment on above: Order Comment: Speci men Type: BLOOD SPECIMENOrdering Facility: [facility] Address: [address] [place], [place] [address] Performed By: #### 5 8410-2 ####[facility] [id number] [place] [address] [place] Platelet mean volume (Bld) [Entitic vol] 9.5 fL Normal 9.0-12.7 [facility] Comment on above: Order Comment: Speci men Type: BLOOD SPECIMENOrdering Facility: [facility] Address: [address] [place], [place] [address] Performed By: #### 5 8410-2 ####[facility] LABIA [id number] [place] [address] [place] Platelets (Bld) [#/Vol] 133 10*3/uL Low 150-400 [facility] Comment on above: Order Comment: Speci men Type: BLOOD SPECIMENOrdering Facility: [facility] Address: [address] [place] [address] Performed By: #### 5 8410-2 ####[facility] LABIA [id number] [place] [address] [place] RBC (Bld) [#/Vol] 3.82 10*6/uL Low 4.20-6.00 [facility] Comment on above: Order Comment: Speci men Type: BLOOD SPECIMENOrdering Facility: [facility] Address: [address] [place] [address] Performed By: #### 5 8410-2 ####[facility] [id number] [place] [address] [place] WBC (Bld) [#/Vol] 6.83 10*3/uL Normal 3.70-11.00 [facility] Comment on above: Order Comment: Speci men Type: BLOOD SPECIMENOrdering Facility: [facility] Address: [address] [place] [address] Performed By: #### 5 8410-2 ####[facility] [id number] [place] [address] [place] ECG COMPLETEon 12-08-2022 ECG COMPLETE Normal [facility] XR CHEST 2V FRONTAL/LATon XR CHEST 2V FRONTAL/LAT Normal [facility] CASE MANAGEMon 12-07-2022 CASE MANAGEM Normal [facility] CBC panel Auto (Bld)on 12-07 Erythrocyte distribution width (RBC) [Ratio] 14.6 % Normal 11.5-15.0 [facility] Comment on above: Order Comment: Speci men Type: BLOOD SPECIMENOrdering Facility: [facility] Address: [address] [address] Performed By: #### 5 8410-2 ####[facility] LABIA [id number] [address] [place] Hematocrit (Bld) [Volume fraction] 31.7 % Low 39.0-51.0 [facility] Comment on above: Order Comment: Speci men Type: BLOOD SPECIMENOrdering Facility: [facility] Address: [address] [address] Performed By: #### 5 8410-2 ####[facility] LABIA [id number] [address] [place] Hemoglobin (Bld) [Mass/Vol] 10.7 g/dL Low 13.0-17.0 [facility] Comment on above: Order Comment: Speci men Type: BLOOD SPECIMENOrdering Facility: [facility] Address: [address] [address] Performed By: #### 5 8410-2 ####[facility] LABIA [id number] [address] [place] MCH (RBC) [Entitic mass] 30.6 pg Normal 26.0-34.0 [facility] Comment on above: Order Comment: Speci men Type: BLOOD SPECIMENOrdering Facility: [facility] Address: [address] Performed By: #### 5 8410-2 ####[facility] LABIA [id number] [address] [place] MCHC (RBC) [Mass/Vol] 33.8 g/dL Normal 30.5-36.0 [facility] Comment on above: Order Comment: Speci men Type: BLOOD SPECIMENOrdering Facility: [facility] Address: [address] Performed By: #### 5 8410-2 ####[facility] LABIA [id number] [address] STATES OF [facility] (RBC) [Entitic vol] 90.6 fL Normal 80.0-100.0 [facility] Comment on above: Order Comment: Speci men Type: BLOOD SPECIMENOrdering Facility: [facility] Address: [address] [place] [address] Performed By: #### 5 8410-2 ####[facility] LABIA [id number] [place] [address] [place] Nucleated RBC (Bld) [#/Vol] 10*3/uL Normal <0.01 [facility] Comment on above: Order Comment: Speci men Type: BLOOD SPECIMENOrdering Facility: [facility] Address: [address] [place] [address] Performed By: #### 5 8410-2 ####[facility] [id number] [address] [place] Platelet mean volume (Bld) [Entitic vol] 10.0 fL Normal 9.0-12.7 [facility] Comment on above: Order Comment: Speci men Type: BLOOD SPECIMENOrdering Facility: [facility] Address: [address] [place] [address] Performed By: #### 5 8410-2 ####[facility] LABIA [id number] [place] [address] [place] Platelets (Bld) [#/Vol] 79 10*3/uL Low 150-400 [facility] Comment on above: Order Comment: Speci men Type: BLOOD SPECIMENOrdering Facility: [facility] Address: [address] [place] [address] Result Comment: No c lot detected. Performed By: #### 5 8410-2 ####[facility] LABIA [id number] [address] [place] RBC (Bld) [#/Vol] 3.50 10*6/uL Low 4.20-6.00 [facility] Comment on above: Order Comment: Speci men Type: BLOOD SPECIMENOrdering Facility: [facility] Address: [address] [place] [address] Performed By: #### 5 8410-2 ####[facility] LABCLIA [id number] [address] WBC (Bld) [#/Vol] 8.10 10*3/uL Normal 3.70-11.00 [facility] Comment on above: Order Comment: Speci men Type: BLOOD SPECIMENOrdering Facility: [facility] Address: [address] [place] [address] Performed By: #### 5 8410-2 ####[facility] LABCLIA [id number] [place] [address] [place] [facility] Comprehensive metabolic 2000 panelon 12-07-2022 Albumin [Mass/Vol] 3.0 g/dL Low 3.9-4.9 [facility] Comment on above: Order Comment: Speci men Type: BLOOD SPECIMENOrdering Facility: [facility] Address: [address] [place], [place] [address] Performed By: #### 2 4323-8 ####[facility] LABCLIA [id number] [place] [address] [place] ALP [Catalytic activity/Vol] 64 U/L Normal 38-113 [facility] Comment on above: Order Comment: Speci men Type: BLOOD SPECIMENOrdering Facility: [facility] Address: [address] [place], [place] [address] Performed By: #### 2 4323-8 ####[facility] LABCLIA [id number] [place] [address] [place] ALT [Catalytic activity/Vol] 8 U/L Low 10-54 [facility] Comment on above: Order Comment: Speci men Type: BLOOD SPECIMENOrdering Facility: [facility] Address: [address] [address] Performed By: #### 2 4323-8 ####[facility] LABCLIA [id number] [place] [address] [place] Anion gap [Moles/Vol] 8 mmol/L Low 9-18 [facility] Comment on above: Order Comment: Speci men Type: BLOOD SPECIMENOrdering Facility: [facility] Address: [address] [address] Performed By: #### 2 4323-8 ####[facility] LABCLIA [id number] [place] [address] [place] AST [Catalytic activity/Vol] 35 U/L Normal 14-40 [facility] Comment on above: Order Comment: Speci men Type: BLOOD SPECIMENOrdering Facility: [facility] Address: [address] Performed By: #### 2 4323-8 ####[facility] LABCLIA [id number] [place] [address] [place] Bilirubin [Mass/Vol] 0.5 mg/dL Normal 0.2-1.3 [facility] Comment on above: Order Comment: Speci men Type: BLOOD SPECIMENOrdering Facility: [facility] Address: [address] Performed By: #### 2 4323-8 ####[facility] LABCLIA [id number] [place] [address] [place] Calcium [Mass/Vol] 8.1 mg/dL Low 8.5-10.2 [facility] Comment on above: Order Comment: Speci men Type: BLOOD SPECIMENOrdering Facility: [facility] Address: [address] Performed By: #### 2 4323-8 ####[facility] LABCLIA [id number] [place] [address] [place] Chloride [Moles/Vol] 99 mmol/L Normal 97-105 [facility] Comment on above: Order Comment: Speci men Type: BLOOD SPECIMENOrdering Facility: [facility] Address: [address] [place] [address] Performed By: #### 2 4323-8 ####[facility] LABCLIA [id number] [place] [address] [place] CO2 [Moles/Vol] 30 mmol/L Normal 22-30 [facility] Comment on above: Order Comment: Speci men Type: BLOOD SPECIMENOrdering Facility: [facility] Address: [address] [place] [address] Performed By: #### 2 4323-8 ####[facility] LABCLIA [id number] [address] STATES OF [facility] Creatinine [Mass/Vol] 0.99 mg/dL Normal 0.73-1.22 [facility] Comment on above: Order Comment: Speci men Type: BLOOD SPECIMENOrdering Facility: [facility] Address: [address] [place] [address] Performed By: #### 2 4323-8 ####[facility] LABCLIA [id number] [address] ESTIMATED GLOMERULAR FILTRATION RATE 76 mL/min/1.73m??? Normal >=60 [facility] Comment on above: Order Comment: Speci men Type: BLOOD SPECIMENOrdering Facility: [facility] Address: [address] [place] [address] Result Comment: Emely mated Glomerular Filtration Rate (eGFR) is calculated using the 2020 CKD-EPI creatinine equation. This equation utilizes serum creatinine, sex, and age as parameters. The creatinine assay has traceable calibration to isotope dilution-mass spectrometry. Refer to KDIGO guidelines for clinical interpretation. In patients with unstable renal function, e.g. those with acute kidney injury, the eGFR may not accurately reflect actual GFR. Performed By: #### 2 4323-8 ####[facility] LABIA [id number] [place] [address] [place] Glucose [Mass/Vol] 101 mg/dL High 74-99 [facility] Comment on above: Order Comment: Speci men Type: BLOOD SPECIMENOrdering Facility: [facility] Address: [address] [place] [address] Result Comment: The [place] [employer] (ADA) provides guidance for cutoff values for fasting glucose and random glucose. The ADA defines fasting as no caloric intake for at least 8 hours. Fasting plasma glucose results between 100 to 125 mg/dL indicate increased risk for diabetes (prediabetes).Fasting plasma glucose results greater than or equal to 126 mg/dL meet the criteria for diagnosis of diabetes. In the absence of unequivocal hyperglycemia, results should be confirmed by repeat testing. In a patient with classic symptoms of hyperglycemia or hyperglycemic crisis, random plasma glucose results greater than or equal to 200 mg/dL meet the criteria for diagnosis of diabetes.Reference: Standards of Medical Care in Diabetes 2016, [place] [employer]. Diabetes Care. 2016.39(Suppl 1). Performed By: #### 2 4323-8 ####[facility] [id number] [place] [address] [place] Potassium [Moles/Vol] 3.7 mmol/L Normal 3.7-5.1 [facility] Comment on above: Order Comment: Speci men Type: BLOOD SPECIMENOrdering Facility: [facility] Address: [address] [address] Performed By: #### 2 4323-8 ####[facility] [id number] [place] [address] [place] Protein [Mass/Vol] 5.4 g/dL Low 6.3-8.0 [facility] Comment on above: Order Comment: Speci men Type: BLOOD SPECIMENOrdering Facility: [facility] Address: [address] [place], [place] [address] Performed By: #### 2 4323-8 ####[facility] LABCLIA [id number] [place] [address] [place] Sodium [Moles/Vol] 137 mmol/L Normal 136-144 [facility] Comment on above: Order Comment: Speci men Type: BLOOD SPECIMENOrdering Facility: [facility] Address: [address] Performed By: #### 2 4323-8 ####[facility] LABCLIA [id number] [place] [address] [place] Urea nitrogen [Mass/Vol] 22 mg/dL Normal 9-24 [facility] Comment on above: Order Comment: Speci men Type: BLOOD SPECIMENOrdering Facility: [facility] Address: [address] [place], [place] [address] Performed By: #### 2 4323-8 ####[facility] LABCLIA [id number] [place] [address] [place] ECG COMPLETEon 12-07-2022 ECG COMPLETE Normal [facility] THERAPY NTon 12-07-2022 THERAPY NT Normal [facility] CBC panel Auto (Bld)on 12-06 Erythrocyte distribution width (RBC) [Ratio] 14.7 % Normal 11.5-15.0 [facility] Comment on above: Order Comment: Speci men Type: BLOOD SPECIMENOrdering Facility: [facility] Address: [address] [place] [address] Performed By: #### 5 8410-2 ####[facility] LABCLIA [id number] [address] [place] Hematocrit (Bld) [Volume fraction] 32.6 % Low 39.0-51.0 [facility] Comment on above: Order Comment: Speci men Type: BLOOD SPECIMENOrdering Facility: [facility] Address: [address] [place], [place] [address] Performed By: #### 5 8410-2 ####[facility] LABIA [id number] [address] [place] Hemoglobin (Bld) [Mass/Vol] 10.6 g/dL Low 13.0-17.0 [facility] Comment on above: Order Comment: Speci men Type: BLOOD SPECIMENOrdering Facility: [facility] Address: [address] [place], [place] [address] Performed By: #### 5 8410-2 ####[facility] [id number] [place] [address] [place] MCH (RBC) [Entitic mass] 29.6 pg Normal 26.0-34.0 [facility] Comment on above: Order Comment: Speci men Type: BLOOD SPECIMENOrdering Facility: [facility] Address: [address] [place], [place] [address] Performed By: #### 5 8410-2 ####[facility] [id number] [address] [place] MCHC (RBC) [Mass/Vol] 32.5 g/dL Normal 30.5-36.0 [facility] Comment on above: Order Comment: Speci men Type: BLOOD SPECIMENOrdering Facility: [facility] Address: [address] [place] [address] Performed By: #### 5 8410-2 ####[facility] LABIA [id number] [address] [place] MCV (RBC) [Entitic vol] 91.1 fL Normal 80.0-100.0 [facility] Comment on above: Order Comment: Speci men Type: BLOOD SPECIMENOrdering Facility: [facility] Address: [address] [place] [address] Performed By: #### 5 8410-2 ####[facility] [id number] [place] [id number] [place] Nucleated RBC (Bld) [#/Vol] 10*3/uL Normal <0.01 [facility] Comment on above: Order Comment: Speci men Type: BLOOD SPECIMENOrdering Facility: [facility] Address: [address] [place] [address] Performed By: #### 5 8410-2 ####[facility] LABCLIA [id number] [place] [address] [place] Platelet mean volume (Bld) [Entitic vol] 9.5 fL Normal 9.0-12.7 [facility] Comment on above: Order Comment: Speci men Type: BLOOD SPECIMENOrdering Facility: [facility] Address: [address] [place] [address] Performed By: #### 5 8410-2 ####[facility] LABCLIA [id number] [place] [address] [place] Platelets (Bld) [#/Vol] 76 10*3/uL Low 150-400 [facility] Comment on above: Order Comment: Speci men Type: BLOOD SPECIMENOrdering Facility: [facility] Address: [address] [place], [place] [address] Result Comment: No c lot detected. Performed By: #### 5 8410-2 ####[facility] LABIA [id number] [place] [address] [place] RBC (Bld) [#/Vol] 3.58 10*6/uL Low 4.20-6.00 [facility] Comment on above: Order Comment: Speci men Type: BLOOD SPECIMENOrdering Facility: [facility] Address: [address] [place], [place] [address] Performed By: #### 5 8410-2 ####[facility] LABCLIA [id number] [place] [address] [place] WBC (Bld) [#/Vol] 11.07 10*3/uL High 3.70-11.00 [facility] Comment on above: Order Comment: Speci men Type: BLOOD SPECIMENOrdering Facility: [facility] Address: [address] [place] [address] Performed By: #### 5 8410-2 ####[facility] LABCLIA [id number] [place] [address] [place] [facility] Comprehensive metabolic 2000 panelon 12-06-2022 Albumin [Mass/Vol] 3.2 g/dL Low 3.9-4.9 [facility] Comment on above: Order Comment: Speci men Type: BLOOD SPECIMENOrdering Facility: [facility] Address: [address] [place] [address] Performed By: #### 2 4323-8 ####[facility] LABCLIA [id number] [place] [address] [place] ALP [Catalytic activity/Vol] 62 U/L Normal 38-113 [facility] Comment on above: Order Comment: Speci men Type: BLOOD SPECIMENOrdering Facility: [facility] Address: [address] [place] [address] Performed By: #### 2 4323-8 ####[facility] LABCLIA [id number] [place] [address] [place] ALT [Catalytic activity/Vol] 14 U/L Normal 10-54 [facility] Comment on above: Order Comment: Speci men Type: BLOOD SPECIMENOrdering Facility: [facility] Address: [address] Performed By: #### 2 4323-8 ####[facility] LABCLIA [id number] [place] [address] [place] Anion gap [Moles/Vol] 11 mmol/L Normal 9-18 [facility] Comment on above: Order Comment: Speci men Type: BLOOD SPECIMENOrdering Facility: [facility] Address: [address] Performed By: #### 2 4323-8 ####[facility] LABCLIA [id number] [place] [address] [place] AST [Catalytic activity/Vol] 54 U/L High 14-40 [facility] Comment on above: Order Comment: Speci men Type: BLOOD SPECIMENOrdering Facility: [facility] Address: [address] [place], [place] [address] Performed By: #### 2 4323-8 ####[facility] LABCLIA [id number] [place] [address] [place] Bilirubin [Mass/Vol] 0.6 mg/dL Normal 0.2-1.3 [facility] Comment on above: Order Comment: Speci men Type: BLOOD SPECIMENOrdering Facility: [facility] Address: [address] [place], [place] [address] Performed By: #### 2 4323-8 ####[facility] LABCLIA [id number] [place] [address] [place] Calcium [Mass/Vol] 8.2 mg/dL Low 8.5-10.2 [facility] Comment on above: Order Comment: Speci men Type: BLOOD SPECIMENOrdering Facility: [facility] Address: [address] [place], [place] [address] Performed By: #### 2 4323-8 ####[facility] LABCLIA [id number] [place] [address] [place] Chloride [Moles/Vol] 97 mmol/L Normal 97-105 [facility] Comment on above: Order Comment: Speci men Type: BLOOD SPECIMENOrdering Facility: [facility] Address: [address] [place], [place] [address] Performed By: #### 2 4323-8 ####[facility] LABCLIA [id number] [address] [id number] [address] [place] CO2 [Moles/Vol] 28 mmol/L Normal 22-30 [facility] Comment on above: Order Comment: Speci men Type: BLOOD SPECIMENOrdering Facility: [facility] Address: [address] [address] Performed By: #### 2 4323-8 ####[facility] LABCLIA [id number] [address] [place] Creatinine [Mass/Vol] 0.99 mg/dL Normal 0.73-1.22 [facility] Comment on above: Order Comment: Speci men Type: BLOOD SPECIMENOrdering Facility: [facility] Address: [address] [place] [address] Performed By: #### 2 4323-8 ####[facility] LABIA [id number] [address] STATES OF [facility] ESTIMATED GLOMERULAR FILTRATION RATE 76 mL/min/1.73m??? Normal >=60 [facility] Comment on above: Order Comment: Speci men Type: BLOOD SPECIMENOrdering Facility: [facility] Address: [address] [place] [address] Result Comment: Emely mated Glomerular Filtration Rate (eGFR) is calculated using the 2020 CKD-EPI creatinine equation. This equation utilizes serum creatinine, sex, and age as parameters. The creatinine assay has traceable calibration to isotope dilution-mass spectrometry. Refer to KDIGO guidelines for clinical interpretation. In patients with unstable renal function, e.g. those with acute kidney injury, the eGFR may not accurately reflect actual GFR. Performed By: #### 2 4323-8 ####[facility] LABCLIA [id number] [place] [address] [place] Glucose [Mass/Vol] 125 mg/dL High 74-99 [facility] Comment on above: Order Comment: Speci men Type: BLOOD SPECIMENOrdering Facility: [facility] Address: [address] [address] Result Comment: The [place] [employer] (ADA) provides guidance for cutoff values for fasting glucose and random glucose. The ADA defines fasting as no caloric intake for at least 8 hours. Fasting plasma glucose results between 100 to 125 mg/dL indicate increased risk for diabetes (prediabetes).Fasting plasma glucose results greater than or equal to 126 mg/dL meet the criteria for diagnosis of diabetes. In the absence of unequivocal hyperglycemia, results should be confirmed by repeat testing. In a patient with classic symptoms of hyperglycemia or hyperglycemic crisis, random plasma glucose results greater than or equal to 200 mg/dL meet the criteria for diagnosis of diabetes.Reference: Standards of Medical Care in Diabetes 2016, [place] [employer]. Diabetes Care. 2016.39(Suppl 1). Performed By: #### 2 4323-8 ####[facility] LABCLIA [id number] [place] [address] [place] Potassium [Moles/Vol] 3.7 mmol/L Normal 3.7-5.1 [facility] Comment on above: Order Comment: Speci men Type: BLOOD SPECIMENOrdering Facility: [facility] Address: [address] [address] Performed By: #### 2 4323-8 ####[facility] LABCLIA [id number] [place] [address] [place] Protein [Mass/Vol] 5.2 g/dL Low 6.3-8.0 [facility] Comment on above: Order Comment: Speci men Type: BLOOD SPECIMENOrdering Facility: [facility] Address: [address] [address] Performed By: #### 2 4323-8 ####[facility] LABCLIA [id number] [place] [address] [place] Sodium [Moles/Vol] 136 mmol/L Normal 136-144 [facility] Comment on above: Order Comment: Speci men Type: BLOOD SPECIMENOrdering Facility: [facility] Address: [address] [address] Performed By: #### 2 4323-8 ####[facility] LABCLIA [id number] [address] [place] Urea nitrogen [Mass/Vol] 17 mg/dL Normal 9-24 [facility] Comment on above: Order Comment: Speci men Type: BLOOD SPECIMENOrdering Facility: [facility] Address: [address] [place] [address] Performed By: #### 2 4323-8 ####[facility] LABIA [id number] [place] [address] [place] THERAPY NTon 12-06-2022 THERAPY NT Normal [facility] XR CHEST 1V FRONTALon 2022 XR CHEST 1V FRONTAL Normal [facility] ARTERIAL BLOOD GASESon 12-05 Base excess Calc (Bld) [Moles/Vol] 1 mmol/L Normal 0-2 [facility] Comment on above: Order Comment: Speci men Type: ARTERIAL BLOOD SPECIMENOrdering Facility: [facility] Address: [address] [place] [address] Performed By: #### A LLBG ####[facility] LABIA [id number] [place] [address] [place] Body temperature 98.6 [degF] Normal [facility] Comment on above: Order Comment: Speci men Type: ARTERIAL BLOOD SPECIMENOrdering Facility: [facility] Address: [address] [place], [place] [address] Performed By: #### A LLBG ####[facility] LABCLIA [id number] [place] [address] [place] Calcium.ionized (Bld) [Mass/Vol] 1.12 mmol/L Normal 1.08-1.30 [facility] Comment on above: Order Comment: Speci men Type: ARTERIAL BLOOD SPECIMENOrdering Facility: [facility] Address: [address] [place] [address] Performed By: #### A LLBG ####[facility] LABCLIA [id number] [place] [address] [place] Calcium.ionized adjusted to pH 7.4 (BldA) [Moles/Vol] 1.14 mmol/L Normal 1.08-1.30 [facility] Comment on above: Order Comment: Speci men Type: ARTERIAL BLOOD SPECIMENOrdering Facility: [facility] Address: [address] [place] [address] Performed By: #### A LLBG ####[facility] LABCLIA [id number] [place] [address] [place] Carboxyhemoglobin (BldA) [Mass fraction] 1.3 % Normal 0.0-2.0 [facility] Comment on above: Order Comment: Speci men Type: ARTERIAL BLOOD SPECIMENOrdering Facility: [facility] Address: [address] [place] [address] Result Comment: Carb oxyhemoglobin Reference Range for Smokers: 2.0-8.0% Performed By: #### A LLBG ####[facility] LABCLIA [id number] [place] [address] [place] CO2 (Bld) [Partial pressure] 38 mm Hg Normal 36-46 [facility] Comment on above: Order Comment: Speci men Type: ARTERIAL BLOOD SPECIMENOrdering Facility: [facility] Address: [address] [place] [address] Performed By: #### A LLBG ####[facility] LABCLIA [id number] [place] [address] [place] CO2 [Moles/Vol] 26 mmol/L Normal 22-28 [facility] Comment on above: Order Comment: Speci men Type: ARTERIAL BLOOD SPECIMENOrdering Facility: [facility] Address: [address] [place], [place] [address] Performed By: #### A LLBG ####[facility] LABCLIA [id number] [place] [address] [place] Glucose [Mass/Vol] 168 mg/dL High 60-105 [facility] Comment on above: Order Comment: Speci men Type: ARTERIAL BLOOD SPECIMENOrdering Facility: [facility] Address: [address] Performed By: #### A LLBG ####[facility] LABCLIA [id number] [place] [address] [place] HCO3 (Bld) [Moles/Vol] 25 mmol/L Normal 22-26 [facility] Comment on above: Order Comment: Speci men Type: ARTERIAL BLOOD SPECIMENOrdering Facility: [facility] Address: [address] Performed By: #### A LLBG ####[facility] LABCLIA [id number] [place] [address] [place] Hematocrit (Bld) [Volume fraction] 34.6 % Low 39.0-51.0 [facility] Comment on above: Order Comment: Speci men Type: ARTERIAL BLOOD SPECIMENOrdering Facility: [facility] Address: [address] Performed By: #### A LLBG ####[facility] LABIA [id number] [place] [address] [place] Hemoglobin (Bld) [Mass/Vol] 11.2 g/dL Low 13.0-17.0 [facility] Comment on above: Order Comment: Speci men Type: ARTERIAL BLOOD SPECIMENOrdering Facility: [facility] Address: [address] Performed By: #### A LLBG ####[facility] LABCLIA [id number] [place] [address] [place] Lactate [Moles/Vol] 1.4 mmol/L Normal 0.5-2.2 [facility] Comment on above: Order Comment: Speci men Type: ARTERIAL BLOOD SPECIMENOrdering Facility: [facility] Address: [address] Performed By: #### A LLBG ####[facility] LABCLIA [id number] [address] [place] Methemoglobin (Bld) [Mass fraction] 0.3 % Normal 0.0-1.5 [facility] Comment on above: Order Comment: Speci men Type: ARTERIAL BLOOD SPECIMENOrdering Facility: [facility] Address: [address] [place], [place] [address] Performed By: #### A LLBG ####[facility] LABCLIA [id number] [place] [address] [place] O2 THERAPY NC = Nasal Cannula Normal [facility] Comment on above: Order Comment: Speci men Type: ARTERIAL BLOOD SPECIMENOrdering Facility: [facility] Address: [address] [place] [address] Result Comment: 2L Performed By: #### A LLBG ####[facility] LABCLIA [id number] [place] [address] [place] Oxygen (Bld) [Partial pressure] 98 mm Hg High 85-95 [facility] Comment on above: Order Comment: Speci men Type: ARTERIAL BLOOD SPECIMENOrdering Facility: [facility] Address: [address] [place], [place] [address] Performed By: #### A LLBG ####[facility] LABIA [id number] [place] [address] [place] Oxyhemoglobin (BldA) [Mass fraction] 96 % Normal 95-98 [facility] Comment on above: Order Comment: Speci men Type: ARTERIAL BLOOD SPECIMENOrdering Facility: [facility] Address: [address] [place] [address] Performed By: #### A LLBG ####[facility] LABCLIA [id number] [place] [address] [place] pH (Bld) 7.43 [pH] Normal 7.35-7.45 [facility] Comment on above: Order Comment: Speci men Type: ARTERIAL BLOOD SPECIMENOrdering Facility: [facility] Address: [address] Performed By: #### A LLBG ####[facility] LABCLIA [id number] [place] [address] [place] Potassium [Moles/Vol] 4.5 mmol/L Normal 3.5-5.0 [facility] Comment on above: Order Comment: Speci men Type: ARTERIAL BLOOD SPECIMENOrdering Facility: [facility] Address: [address] Performed By: #### A LLBG ####[facility] LABCLIA [id number] [place] [address] [place] Sodium [Moles/Vol] 131 mmol/L Low 136-144 [facility] Comment on above: Order Comment: Speci men Type: ARTERIAL BLOOD SPECIMENOrdering Facility: [facility] Address: [address] Performed By: #### A LLBG ####[facility] LABCLIA [id number] [place] [address] [place] Base excess Calc (Bld) [Moles/Vol] 2 mmol/L Normal 0-2 [facility] Comment on above: Order Comment: Speci men Type: ARTERIAL BLOOD SPECIMENOrdering Facility: [facility] Address: [address] Performed By: #### A LLBG ####[facility] LABCLIA [id number] [place] [address] [place] Body temperature 99.14 [degF] Normal [facility] Comment on above: Order Comment: Speci men Type: ARTERIAL BLOOD SPECIMENOrdering Facility: [facility] Address: [address] Performed By: #### A LLBG ####[facility] LABCLIA [id number] [place] [address] [place] Calcium.ionized (Bld) [Mass/Vol] 1.15 mmol/L Normal 1.08-1.30 [facility] Comment on above: Order Comment: Speci men Type: ARTERIAL BLOOD SPECIMENOrdering Facility: [facility] Address: [address] [place] [address] Performed By: #### A LLBG ####[facility] LABIA [id number] [place] [address] [place] Calcium.ionized adjusted to pH 7.4 (BldA) [Moles/Vol] 1.17 mmol/L Normal 1.08-1.30 [facility] Comment on above: Order Comment: Speci men Type: ARTERIAL BLOOD SPECIMENOrdering Facility: [facility] Address: [address] [place] [address] Performed By: #### A LLBG ####[facility] LABIA [id number] [place] [address] [place] Carboxyhemoglobin (BldA) [Mass fraction] 1.3 % Normal 0.0-2.0 [facility] Comment on above: Order Comment: Speci men Type: ARTERIAL BLOOD SPECIMENOrdering Facility: [facility] Address: [address] [place] [address] Result Comment: Carb oxyhemoglobin Reference Range for Smokers: 2.0-8.0% Performed By: #### A LLBG ####[facility] LABIA [id number] [place] [address] [place] CO2 (Bld) [Partial pressure] 40 mm Hg Normal 36-46 [facility] Comment on above: Order Comment: Speci men Type: ARTERIAL BLOOD SPECIMENOrdering Facility: [facility] Address: [address] [place] [address] Performed By: #### A LLBG ####[facility] LABIA [id number] [place] [address] [place] CO2 [Moles/Vol] 27 mmol/L Normal 22-28 [facility] Comment on above: Order Comment: Speci men Type: ARTERIAL BLOOD SPECIMENOrdering Facility: [facility] Address: [address] [place] [address] Performed By: #### A LLBG ####[facility] LABCLIA [id number] [place] [address] [place] CO2 adjusted to patient's actual temperature (Bld) [Partial pressure] 41 mmHg Normal 36-46 [facility] Comment on above: Order Comment: Speci men Type: ARTERIAL BLOOD SPECIMENOrdering Facility: [facility] Address: [address] [place] [address] Performed By: #### A LLBG ####[facility] LABCLIA [id number] [place] [address] [place] Glucose [Mass/Vol] 152 mg/dL High 60-105 [facility] Comment on above: Order Comment: Speci men Type: ARTERIAL BLOOD SPECIMENOrdering Facility: [facility] Address: [address] [place], [place] [address] Performed By: #### A LLBG ####[facility] LABCLIA [id number] [place] [address] [place] HCO3 (Bld) [Moles/Vol] 26 mmol/L Normal 22-26 [facility] Comment on above: Order Comment: Speci men Type: ARTERIAL BLOOD SPECIMENOrdering Facility: [facility] Address: [address] [place], [place] [address] Performed By: #### A LLBG ####[facility] LABCLIA [id number] [place] [address] [place] Hematocrit (Bld) [Volume fraction] 34.9 % Low 39.0-51.0 [facility] Comment on above: Order Comment: Speci men Type: ARTERIAL BLOOD SPECIMENOrdering Facility: [facility] Address: [address] [place] [address] Performed By: #### A LLBG ####[facility] LABCLIA [id number] [place] [address] [place] Hemoglobin (Bld) [Mass/Vol] 11.3 g/dL Low 13.0-17.0 [facility] Comment on above: Order Comment: Speci men Type: ARTERIAL BLOOD SPECIMENOrdering Facility: [facility] Address: [address] Performed By: #### A LLBG ####[facility] LABCLIA [id number] [place] [address] [place] Lactate [Moles/Vol] 1.1 mmol/L Normal 0.5-2.2 [facility] Comment on above: Order Comment: Speci men Type: ARTERIAL BLOOD SPECIMENOrdering Facility: [facility] Address: [address] Performed By: #### A LLBG ####[facility] LABCLIA [id number] [place] [address] [place] LITERS 2 Liters/min Normal [facility] Comment on above: Order Comment: Speci men Type: ARTERIAL BLOOD SPECIMENOrdering Facility: [facility] Address: [address] Performed By: #### A LLBG ####[facility] LABCLIA [id number] [place] [address] [place] Methemoglobin (Bld) [Mass fraction] 1.2 % Normal 0.0-1.5 [facility] Comment on above: Order Comment: Speci men Type: ARTERIAL BLOOD SPECIMENOrdering Facility: [facility] Address: [address] Performed By: #### A LLBG ####[facility] LABCLIA [id number] [address] [place] O2 THERAPY [place] = Nasal Cannula Normal [facility] Comment on above: Order Comment: Speci men Type: ARTERIAL BLOOD SPECIMENOrdering Facility: [facility] Address: [address] Performed By: #### A LLBG ####[facility] LABCLIA [id number] [place] [address] [place] Oxygen (Bld) [Partial pressure] 99 mm Hg High 85-95 [facility] Comment on above: Order Comment: Speci men Type: ARTERIAL BLOOD SPECIMENOrdering Facility: [facility] Address: [address] Performed By: #### A LLBG ####[facility] LABCLIA [id number] [place] [address] [place] Oxygen adjusted to patient's actual temperature (Bld) [Partial pressure] 101 mmHg High 85-95 [facility] Comment on above: Order Comment: Speci men Type: ARTERIAL BLOOD SPECIMENOrdering Facility: [facility] Address: [address] [place], [place] [address] Performed By: #### A LLBG ####[facility] LABCLIA [id number] [place] [address] [place] Oxyhemoglobin (BldA) [Mass fraction] 96 % Normal 95-98 [facility] Comment on above: Order Comment: Speci men Type: ARTERIAL BLOOD SPECIMENOrdering Facility: [facility] Address: [address] Performed By: #### A LLBG ####[facility] LABCLIA [id number] [place] [address] [place] pH (Bld) 7.43 [pH] Normal 7.35-7.45 [facility] Comment on above: Order Comment: Speci men Type: ARTERIAL BLOOD SPECIMENOrdering Facility: [facility] Address: [address] [place] [address] [place] Performed By: #### A LLBG ####[facility] LABCLIA [id number] [place] [address] [place] pH adjusted to patient's actual temperature (Bld) 7.42 Normal 7.35-7.45 [facility] Comment on above: Order Comment: Speci men Type: ARTERIAL BLOOD SPECIMENOrdering Facility: [facility] Address: [address] [place] [address] Performed By: #### A LLBG ####[facility] LABCLIA [id number] [place] [address] [place] Potassium [Moles/Vol] 4.4 mmol/L Normal 3.5-5.0 [facility] Comment on above: Order Comment: Speci men Type: ARTERIAL BLOOD SPECIMENOrdering Facility: [facility] Address: [address] Performed By: #### A LLBG ####[facility] LABCLIA [id number] [place] [address] [place] Sodium [Moles/Vol] 133 mmol/L Low 136-144 [facility] Comment on above: Order Comment: Speci men Type: ARTERIAL BLOOD SPECIMENOrdering Facility: [facility] Address: [address] [place], [place] Performed By: #### A LLBG ####[facility] LABCLIA [id number] [place] [address] [place] Base excess Calc (Bld) [Moles/Vol] 1 mmol/L Normal 0-2 [facility] Comment on above: Order Comment: Speci men Type: ARTERIAL BLOOD SPECIMENOrdering Facility: [facility] Address: [address] [place] [address] Performed By: #### A LLBG ####[facility] LABCLIA [id number] [address] [address] [place] Body temperature 98.96 [degF] Normal [facility] Comment on above: Order Comment: Speci men Type: ARTERIAL BLOOD SPECIMENOrdering Facility: [facility] Address: [address] [place], [place] [address] Performed By: #### A LLBG ####[facility] LABCLIA [id number] [place] [address] [place] Calcium.ionized (Bld) [Mass/Vol] 1.13 mmol/L Normal 1.08-1.30 [facility] Comment on above: Order Comment: Speci men Type: ARTERIAL BLOOD SPECIMENOrdering Facility: [facility] Address: [address] [place], [place] [address] Performed By: #### A LLBG ####[facility] LABCLIA [id number] [place] [address] [place] Calcium.ionized adjusted to pH 7.4 (BldA) [Moles/Vol] 1.13 mmol/L Normal 1.08-1.30 [facility] Comment on above: Order Comment: Speci men Type: ARTERIAL BLOOD SPECIMENOrdering Facility: [facility] Address: [address] [place], [place] [address] Performed By: #### A LLBG ####[facility] LABIA [id number] [place] [address] [place] Carboxyhemoglobin (BldA) [Mass fraction] 1.1 % Normal 0.0-2.0 [facility] Comment on above: Order Comment: Speci men Type: ARTERIAL BLOOD SPECIMENOrdering Facility: [facility] Address: [address] [place] [address] Result Comment: Carb oxyhemoglobin Reference Range for Smokers: 2.0-8.0% Performed By: #### A LLBG ####[facility] LABCLIA [id number] [place] [address] [place] CO2 (Bld) [Partial pressure] 42 mm Hg Normal 36-46 [facility] Comment on above: Order Comment: Speci men Type: ARTERIAL BLOOD SPECIMENOrdering Facility: [facility] Address: [address] Performed By: #### A LLBG ####[facility] LABCLIA [id number] [place] [address] [place] CO2 [Moles/Vol] 26 mmol/L Normal 22-28 [facility] Comment on above: Order Comment: Speci men Type: ARTERIAL BLOOD SPECIMENOrdering Facility: [facility] Address: [address] Performed By: #### A LLBG ####[facility] LABCLIA [id number] [place] [address] [place] CO2 adjusted to patient's actual temperature (Bld) [Partial pressure] 42 mmHg Normal 36-46 [facility] Comment on above: Order Comment: Speci men Type: ARTERIAL BLOOD SPECIMENOrdering Facility: [facility] Address: [address] Performed By: #### A LLBG ####[facility] LABCLIA [id number] [place] [address] [place] Glucose [Mass/Vol] 159 mg/dL High 60-105 [facility] Comment on above: Order Comment: Speci men Type: ARTERIAL BLOOD SPECIMENOrdering Facility: [facility] Address: [address] [place] [address] Performed By: #### A LLBG ####[facility] LABCLIA [id number] [place] [address] [place] HCO3 (Bld) [Moles/Vol] 25 mmol/L Normal 22-26 [facility] Comment on above: Order Comment: Speci men Type: ARTERIAL BLOOD SPECIMENOrdering Facility: [facility] Address: [address] [place] [address] Performed By: #### A LLBG ####[facility] LABCLIA [id number] [place] [address] [place] Hematocrit (Bld) [Volume fraction] 34.1 % Low 39.0-51.0 [facility] Comment on above: Order Comment: Speci men Type: ARTERIAL BLOOD SPECIMENOrdering Facility: [facility] Address: [address] [place] [address] Performed By: #### A LLBG ####[facility] LABCLIA [id number] [place] [address] [place] Hemoglobin (Bld) [Mass/Vol] 11.1 g/dL Low 13.0-17.0 [facility] Comment on above: Order Comment: Speci men Type: ARTERIAL BLOOD SPECIMENOrdering Facility: [facility] Address: [address] [place] [address] Performed By: #### A LLBG ####[facility] LABIA [id number] [place] [address] [place] Lactate [Moles/Vol] 1.1 mmol/L Normal 0.5-2.2 [facility] Comment on above: Order Comment: Speci men Type: ARTERIAL BLOOD SPECIMENOrdering Facility: [facility] Address: [address] [place], [place] [address] Performed By: #### A LLBG ####[facility] LABIA [id number] [place] [address] [place] LITERS 2 Liters/min Normal [facility] Comment on above: Order Comment: Speci men Type: ARTERIAL BLOOD SPECIMENOrdering Facility: [facility] Address: [address] [place], [place] [address] Performed By: #### A LLBG ####[facility] LABCLIA [id number] [place] [address] [place] Methemoglobin (Bld) [Mass fraction] 0.4 % Normal 0.0-1.5 [facility] Comment on above: Order Comment: Speci men Type: ARTERIAL BLOOD SPECIMENOrdering Facility: [facility] Address: [address] Performed By: #### A LLBG ####[facility] LABCLIA [id number] [address] [place] O2 THERAPY [place] = Nasal Cannula Normal [facility] Comment on above: Order Comment: Speci men Type: ARTERIAL BLOOD SPECIMENOrdering Facility: [facility] Address: [address] Performed By: #### A LLBG ####[facility] LABCLIA [id number] [place] [address] [place] Oxygen (Bld) [Partial pressure] 101 mm Hg High 85-95 [facility] Comment on above: Order Comment: Speci men Type: ARTERIAL BLOOD SPECIMENOrdering Facility: [facility] Address: [address] Performed By: #### A LLBG ####[facility] LABCLIA [id number] [place] [address] [place] Oxygen adjusted to patient's actual temperature (Bld) [Partial pressure] 102 mmHg High 85-95 [facility] Comment on above: Order Comment: Speci men Type: ARTERIAL BLOOD SPECIMENOrdering Facility: [facility] Address: [address] [place] [address] Performed By: #### A LLBG ####[facility] LABCLIA [id number] [place] [address] [place] Oxyhemoglobin (BldA) [Mass fraction] 96 % Normal 95-98 [facility] Comment on above: Order Comment: Speci men Type: ARTERIAL BLOOD SPECIMENOrdering Facility: [facility] Address: [address] Performed By: #### A LLBG ####[facility] LABCLIA [id number] [place] [address] [place] pH (Bld) 7.40 [pH] Normal 7.35-7.45 [facility] Comment on above: Order Comment: Speci men Type: ARTERIAL BLOOD SPECIMENOrdering Facility: [facility] Address: [address] [place] [address] Performed By: #### A LLBG ####[facility] LABCLIA [id number] [address] [place] pH adjusted to patient's actual temperature (Bld) 7.40 Normal 7.35-7.45 [facility] Comment on above: Order Comment: Speci men Type: ARTERIAL BLOOD SPECIMENOrdering Facility: [facility] Address: [address] [place] [address] Performed By: #### A LLBG ####[facility] LABCLIA [id number] [place] [address] [place] Potassium [Moles/Vol] 4.8 mmol/L Normal 3.5-5.0 [facility] Comment on above: Order Comment: Speci men Type: ARTERIAL BLOOD SPECIMENOrdering Facility: [facility] Address: [address] [place] [address] Performed By: #### A LLBG ####[facility] LABCLIA [id number] [place] [address] [place] Sodium [Moles/Vol] 132 mmol/L Low 136-144 [facility] Comment on above: Order Comment: Speci men Type: ARTERIAL BLOOD SPECIMENOrdering Facility: [facility] Address: [address] [place], [place] [address] Performed By: #### A LLBG ####[facility] LABCLIA [id number] [place] [address] [place] Base excess Calc (Bld) [Moles/Vol] 1 mmol/L Normal 0-2 [facility] Comment on above: Order Comment: Speci men Type: ARTERIAL BLOOD SPECIMENOrdering Facility: [facility] Address: [address] Performed By: #### A LLBG ####[facility] LABIA [id number] [place] [address] [place] Body temperature 98.78 [degF] Normal [facility] Comment on above: Order Comment: Speci men Type: ARTERIAL BLOOD SPECIMENOrdering Facility: [facility] Address: [address] Performed By: #### A LLBG ####[facility] [id number] [place] [address] [place] Calcium.ionized (Bld) [Mass/Vol] 1.18 mmol/L Normal 1.08-1.30 [facility] Comment on above: Order Comment: Speci men Type: ARTERIAL BLOOD SPECIMENOrdering Facility: [facility] Address: [address] [place], [place] [address] Performed By: #### A LLBG ####[facility] LABIA [id number] [place] [address] [place] Calcium.ionized adjusted to pH 7.4 (BldA) [Moles/Vol] 1.18 mmol/L Normal 1.08-1.30 [facility] Comment on above: Order Comment: Speci men Type: ARTERIAL BLOOD SPECIMENOrdering Facility: [facility] Address: [address] Performed By: #### A LLBG ####[facility] [id number] [place] [address] [place] Carboxyhemoglobin (BldA) [Mass fraction] 1.3 % Normal 0.0-2.0 [facility] Comment on above: Order Comment: Speci men Type: ARTERIAL BLOOD SPECIMENOrdering Facility: [facility] Address: [address] [place], [place] [address] Result Comment: Carb oxyhemoglobin Reference Range for Smokers: 2.0-8.0% Performed By: #### A LLBG ####[facility] LABCLIA [id number] [place] [address] [place] CO2 (Bld) [Partial pressure] 42 mm Hg Normal 36-46 [facility] Comment on above: Order Comment: Speci men Type: ARTERIAL BLOOD SPECIMENOrdering Facility: [facility] Address: [address] [id number] Performed By: #### A LLBG ####[facility] LABCLIA [id number] [place] [address] [place] CO2 [Moles/Vol] 27 mmol/L Normal 22-28 [facility] Comment on above: Order Comment: Speci men Type: ARTERIAL BLOOD SPECIMENOrdering Facility: [facility] Address: [address] [place] [address] Performed By: #### A LLBG ####[facility] LABCLIA [id number] [address] [place] CO2 adjusted to patient's actual temperature (Bld) [Partial pressure] 43 mmHg Normal 36-46 [facility] Comment on above: Order Comment: Speci men Type: ARTERIAL BLOOD SPECIMENOrdering Facility: [facility] Address: [address] [place], [place] Performed By: #### A LLBG ####[facility] LABCLIA [id number] [place] [address] [place] Glucose [Mass/Vol] 124 mg/dL High 60-105 [facility] Comment on above: Order Comment: Speci men Type: ARTERIAL BLOOD SPECIMENOrdering Facility: [facility] Address: [address] [place], [place] Performed By: #### A LLBG ####[facility] LABCLIA [id number] [address] [id number] [address] [place] HCO3 (Bld) [Moles/Vol] 26 mmol/L Normal 22-26 [facility] Comment on above: Order Comment: Speci men Type: ARTERIAL BLOOD SPECIMENOrdering Facility: [facility] Address: [address] [place] [address] Performed By: #### A LLBG ####[facility] LABCLIA [id number] [place] [address] [place] Hematocrit (Bld) [Volume fraction] 35.6 % Low 39.0-51.0 [facility] Comment on above: Order Comment: Speci men Type: ARTERIAL BLOOD SPECIMENOrdering Facility: [facility] Address: [address] [place] [address] Performed By: #### A LLBG ####[facility] LABCLIA [id number] [place] [address] [place] Hemoglobin (Bld) [Mass/Vol] 11.6 g/dL Low 13.0-17.0 [facility] Comment on above: Order Comment: Speci men Type: ARTERIAL BLOOD SPECIMENOrdering Facility: [facility] Address: [address] [place] [address] Performed By: #### A LLBG ####[facility] LABCLIA [id number] [place] [address] [place] Lactate [Moles/Vol] 1.2 mmol/L Normal 0.5-2.2 [facility] Comment on above: Order Comment: Speci men Type: ARTERIAL BLOOD SPECIMENOrdering Facility: [facility] Address: [address] [place], [place] [address] Performed By: #### A LLBG ####[facility] LABIA [id number] [place] [address] [place] LITERS 3 Liters/min Normal [facility] Comment on above: Order Comment: Speci men Type: ARTERIAL BLOOD SPECIMENOrdering Facility: [facility] Address: [address] [place] [address] Performed By: #### A LLBG ####[facility] LABCLIA [id number] [address] [place] Methemoglobin (Bld) [Mass fraction] 1.3 % Normal 0.0-1.5 [facility] Comment on above: Order Comment: Speci men Type: ARTERIAL BLOOD SPECIMENOrdering Facility: [facility] Address: [address] Performed By: #### A LLBG ####[facility] LABCLIA [id number] [address] O2 THERAPY NC = Nasal Cannula Normal [facility] Comment on above: Order Comment: Speci men Type: ARTERIAL BLOOD SPECIMENOrdering Facility: [facility] Address: [address] Performed By: #### A LLBG ####[facility] LABCLIA [id number] [address] [place] Oxygen (Bld) [Partial pressure] 113 mm Hg High 85-95 [facility] Comment on above: Order Comment: Speci men Type: ARTERIAL BLOOD SPECIMENOrdering Facility: [facility] Address: [address] [place] [address] Performed By: #### A LLBG ####[facility] LABCLIA [id number] [address] [place] Oxygen adjusted to patient's actual temperature (Bld) [Partial pressure] 114 mmHg High 85-95 [facility] Comment on above: Order Comment: Speci men Type: ARTERIAL BLOOD SPECIMENOrdering Facility: [facility] Address: [address] [place] [address] Performed By: #### A LLBG ####[facility] LABCLIA [id number] [place] [address] [place] Oxyhemoglobin (BldA) [Mass fraction] 96 % Normal 95-98 [facility] Comment on above: Order Comment: Speci men Type: ARTERIAL BLOOD SPECIMENOrdering Facility: [facility] Address: [address] [place], [place] [address] Performed By: #### A LLBG ####[facility] LABCLIA [id number] [place] [address] [place] pH (Bld) 7.40 [pH] Normal 7.35-7.45 [facility] Comment on above: Order Comment: Speci men Type: ARTERIAL BLOOD SPECIMENOrdering Facility: [facility] Address: [address] [place] [address] Performed By: #### A LLBG ####[facility] LABIA [id number] [place] [address] [place] pH adjusted to patient's actual temperature (Bld) 7.39 Normal 7.35-7.45 [facility] Comment on above: Order Comment: Speci men Type: ARTERIAL BLOOD SPECIMENOrdering Facility: [facility] Address: [address] [place], [place] [address] Performed By: #### A LLBG ####[facility] LABIA [id number] [place] [address] [place] Potassium [Moles/Vol] 4.7 mmol/L Normal 3.5-5.0 [facility] Comment on above: Order Comment: Speci men Type: ARTERIAL BLOOD SPECIMENOrdering Facility: [facility] Address: [address] [place] [address] Performed By: #### A LLBG ####[facility] LABIA [id number] [place] [address] [place] Sodium [Moles/Vol] 134 mmol/L Low 136-144 [facility] Comment on above: Order Comment: Speci men Type: ARTERIAL BLOOD SPECIMENOrdering Facility: [facility] Address: [address] Performed By: #### A LLBG ####[facility] LABCLIA [id number] [place] [address] [place] Base excess Calc (Bld) [Moles/Vol] 2 mmol/L Normal 0-2 [facility] Comment on above: Order Comment: Speci men Type: ARTERIAL BLOOD SPECIMENOrdering Facility: [facility] Address: [address] [place] [address] Performed By: #### A LLBG ####[facility] LABCLIA [id number] [place] [address] [place] Body temperature 98.78 [degF] Normal [facility] Comment on above: Order Comment: Speci men Type: ARTERIAL BLOOD SPECIMENOrdering Facility: [facility] Address: [address] [place], [place] [address] Performed By: #### A LLBG ####[facility] LABIA [id number] [address] [place] Calcium.ionized (Bld) [Mass/Vol] 1.16 mmol/L Normal 1.08-1.30 [facility] Comment on above: Order Comment: Speci men Type: ARTERIAL BLOOD SPECIMENOrdering Facility: [facility] Address: [address] [place] [address] Performed By: #### A LLBG ####[facility] LABIA [id number] [place] [address] [place] Calcium.ionized adjusted to pH 7.4 (BldA) [Moles/Vol] 1.16 mmol/L Normal 1.08-1.30 [facility] Comment on above: Order Comment: Speci men Type: ARTERIAL BLOOD SPECIMENOrdering Facility: [facility] Address: [address] [place], [place] [address] Performed By: #### A LLBG ####[facility] LABIA [id number] [address] [place] Carboxyhemoglobin (BldA) [Mass fraction] 0.7 % Normal 0.0-2.0 [facility] Comment on above: Order Comment: Speci men Type: ARTERIAL BLOOD SPECIMENOrdering Facility: [facility] Address: [address] [place] [address] Result Comment: Carb oxyhemoglobin Reference Range for Smokers: 2.0-8.0% Performed By: #### A LLBG ####[facility] LABCLIA [id number] [place] [address] [place] CO2 (Bld) [Partial pressure] 45 mm Hg Normal 36-46 [facility] Comment on above: Order Comment: Speci men Type: ARTERIAL BLOOD SPECIMENOrdering Facility: [facility] Address: [address] [place] [address] Performed By: #### A LLBG ####[facility] LABCLIA [id number] [place] [address] [place] CO2 [Moles/Vol] 28 mmol/L Normal 22-28 [facility] Comment on above: Order Comment: Speci men Type: ARTERIAL BLOOD SPECIMENOrdering Facility: [facility] Address: [address] [place] [address] Performed By: #### A LLBG ####[facility] LABCLIA [id number] [place] [address] [place] CO2 adjusted to patient's actual temperature (Bld) [Partial pressure] 45 mmHg Normal 36-46 [facility] Comment on above: Order Comment: Speci men Type: ARTERIAL BLOOD SPECIMENOrdering Facility: [facility] Address: [address] [place] [address] Performed By: #### A LLBG ####[facility] LABCLIA [id number] [place] [address] [place] Glucose [Mass/Vol] 119 mg/dL High 60-105 [facility] Comment on above: Order Comment: Speci men Type: ARTERIAL BLOOD SPECIMENOrdering Facility: [facility] Address: [address] Performed By: #### A LLBG ####[facility] LABCLIA [id number] [place] [address] [place] HCO3 (Bld) [Moles/Vol] 27 mmol/L High 22-26 [facility] Comment on above: Order Comment: Speci men Type: ARTERIAL BLOOD SPECIMENOrdering Facility: [facility] Address: [address] Performed By: #### A LLBG ####[facility] LABCLIA [id number] [place] [address] [place] Hematocrit (Bld) [Volume fraction] 36.6 % Low 39.0-51.0 [facility] Comment on above: Order Comment: Speci men Type: ARTERIAL BLOOD SPECIMENOrdering Facility: [facility] Address: [address] Performed By: #### A LLBG ####[facility] LABCLIA [id number] [place] [address] [place] Hemoglobin (Bld) [Mass/Vol] 11.9 g/dL Low 13.0-17.0 [facility] Comment on above: Order Comment: Speci men Type: ARTERIAL BLOOD SPECIMENOrdering Facility: [facility] Address: [address] Performed By: #### A LLBG ####[facility] LABCLIA [id number] [place] [address] [place] Lactate [Moles/Vol] 1.3 mmol/L Normal 0.5-2.2 [facility] Comment on above: Order Comment: Speci men Type: ARTERIAL BLOOD SPECIMENOrdering Facility: [facility] Address: [address] Performed By: #### A LLBG ####[facility] LABCLIA [id number] [place] [address] [place] Methemoglobin (Bld) [Mass fraction] 1.4 % Normal 0.0-1.5 [facility] Comment on above: Order Comment: Speci men Type: ARTERIAL BLOOD SPECIMENOrdering Facility: [facility] Address: [address] [address] Performed By: #### A LLBG ####[facility] LABCLIA [id number] [place] [address] [place] O2 THERAPY NC = Nasal Cannula Normal [facility] Comment on above: Order Comment: Speci men Type: ARTERIAL BLOOD SPECIMENOrdering Facility: [facility] Address: [address] Performed By: #### A LLBG ####[facility] LABCLIA [id number] [place] [address] [place] Oxygen (Bld) [Partial pressure] 98 mm Hg High 85-95 [facility] Comment on above: Order Comment: Speci men Type: ARTERIAL BLOOD SPECIMENOrdering Facility: [facility] Address: [address] [place] [address] Performed By: #### A LLBG ####[facility] LABCLIA [id number] [place] [address] [place] Oxygen adjusted to patient's actual temperature (Bld) [Partial pressure] 99 mmHg High 85-95 [facility] Comment on above: Order Comment: Speci men Type: ARTERIAL BLOOD SPECIMENOrdering Facility: [facility] Address: [address] [place] [address] Performed By: #### A LLBG ####[facility] LABCLIA [id number] [place] [address] [place] Oxyhemoglobin (BldA) [Mass fraction] 95 % Normal 95-98 [facility] Comment on above: Order Comment: Speci men Type: ARTERIAL BLOOD SPECIMENOrdering Facility: [facility] Address: [address] Performed By: #### A LLBG ####[facility] LABCLIA [id number] [place] [address] [place] pH (Bld) 7.40 [pH] Normal 7.35-7.45 [facility] Comment on above: Order Comment: Speci men Type: ARTERIAL BLOOD SPECIMENOrdering Facility: [facility] Address: [address] Performed By: #### A LLBG ####[facility] LABCLIA [id number] [place] [address] [place] pH adjusted to patient's actual temperature (Bld) 7.39 Normal 7.35-7.45 [facility] Comment on above: Order Comment: Speci men Type: ARTERIAL BLOOD SPECIMENOrdering Facility: [facility] Address: [address] Performed By: #### A LLBG ####[facility] LABCLIA [id number] [place] [address] [place] Potassium [Moles/Vol] 4.5 mmol/L Normal 3.5-5.0 [facility] Comment on above: Order Comment: Speci men Type: ARTERIAL BLOOD SPECIMENOrdering Facility: [facility] Address: [address] Performed By: #### A LLBG ####[facility] LABCLIA [id number] [place] [address] [place] Sodium [Moles/Vol] 133 mmol/L Low 136-144 [facility] Comment on above: Order Comment: Speci men Type: ARTERIAL BLOOD SPECIMENOrdering Facility: [facility] Address: [address] Performed By: #### A LLBG ####[facility] LABCLIA [id number] [place] [address] [place] CBC panel Auto (Bld)on 12-05 Erythrocyte distribution width (RBC) [Ratio] 14.5 % Normal 11.5-15.0 [facility] Comment on above: Order Comment: Speci men Type: BLOOD SPECIMENOrdering Facility: [facility] Address: [address] [place] [address] Performed By: #### 5 8410-2 ####[facility] [id number] [place] [address] [place] Hematocrit (Bld) [Volume fraction] 35.2 % Low 39.0-51.0 [facility] Comment on above: Order Comment: Speci men Type: BLOOD SPECIMENOrdering Facility: [facility] Address: [address] [place] [address] Performed By: #### 5 8410-2 ####[facility] [id number] [address] [place] Hemoglobin (Bld) [Mass/Vol] 11.5 g/dL Low 13.0-17.0 [facility] Comment on above: Order Comment: Speci men Type: BLOOD SPECIMENOrdering Facility: [facility] Address: [address] [place] [address] Performed By: #### 5 8410-2 ####[facility] [id number] [address] [place] MCH (RBC) [Entitic mass] 29.7 pg Normal 26.0-34.0 [facility] Comment on above: Order Comment: Speci men Type: BLOOD SPECIMENOrdering Facility: [facility] Address: [address] [place] [address] Performed By: #### 5 8410-2 ####[facility] [id number] [address] [place] MCHC (RBC) [Mass/Vol] 32.7 g/dL Normal 30.5-36.0 [facility] Comment on above: Order Comment: Speci men Type: BLOOD SPECIMENOrdering Facility: [facility] Address: [address] [place], [place] [address] Performed By: #### 5 8410-2 ####[facility] LABCLIA [id number] [place] [address] [place] MCV (RBC) [Entitic vol] 91.0 fL Normal 80.0-100.0 [facility] Comment on above: Order Comment: Speci men Type: BLOOD SPECIMENOrdering Facility: [facility] Address: [address] [place], [place] [address] Performed By: #### 5 8410-2 ####[facility] LABIA [id number] [place] [address] [place] Nucleated RBC (Bld) [#/Vol] 10*3/uL Normal <0.01 [facility] Comment on above: Order Comment: Speci men Type: BLOOD SPECIMENOrdering Facility: [facility] Address: [address] [place], [place] [address] Performed By: #### 5 8410-2 ####[facility] LABIA [id number] [place] [address] [place] Platelet mean volume (Bld) [Entitic vol] 9.3 fL Normal 9.0-12.7 [facility] Comment on above: Order Comment: Speci men Type: BLOOD SPECIMENOrdering Facility: [facility] Address: [address] [place], [place] [address] Performed By: #### 5 8410-2 ####[facility] LABCLIA [id number] [place] [address] [place] Platelets (Bld) [#/Vol] 91 10*3/uL Low 150-400 [facility] Comment on above: Order Comment: Speci men Type: BLOOD SPECIMENOrdering Facility: [facility] Address: [address] Result Comment: No c lot detected. Performed By: #### 5 8410-2 ####[facility] LABCLIA [id number] [place] [address] [place] RBC (Bld) [#/Vol] 3.87 10*6/uL Low 4.20-6.00 [facility] Comment on above: Order Comment: Speci men Type: BLOOD SPECIMENOrdering Facility: [facility] Address: [address] [address] Performed By: #### 5 8410-2 ####[facility] LABCLIA [id number] [place] [address] [place] WBC (Bld) [#/Vol] 10.68 10*3/uL Normal 3.70-11.00 [facility] Comment on above: Order Comment: Speci men Type: BLOOD SPECIMENOrdering Facility: [facility] Address: [address] [address] Performed By: #### 5 8410-2 ####[facility] LABCLIA [id number] [address] [place] CNDSon 12-05-2022 CNDS Normal [facility] CONSULTon 12-05-2022 CONSULT Normal [facility] CT BRAIN WO IVCONon 12-06-[address] BRAIN WO IVCON Normal [facility] Comprehensive metabolic 2000 panelon 12-05-2022 Albumin [Mass/Vol] 3.2 g/dL Low 3.9-4.9 [facility] Comment on above: Order Comment: Speci men Type: BLOOD SPECIMENOrdering Facility: [facility] Address: [address] [place] [address] Performed By: #### H STNT, 68759-3 ####[facility] LABCLIA [id number] [address] [id number] [address] [place] ALP [Catalytic activity/Vol] 64 U/L Normal 38-113 [facility] Comment on above: Order Comment: Speci men Type: BLOOD SPECIMENOrdering Facility: [facility] Address: [address] [address] [place], [place] [address] Performed By: #### H STNT, ####[facility] LABCLIA [id number] [place] [address] [place] ALT [Catalytic activity/Vol] 15 U/L Normal 10-54 [facility] Comment on above: Order Comment: Speci men Type: BLOOD SPECIMENOrdering Facility: [facility] Address: [address] [place] [address] Performed By: #### H STNT, ####[facility] LABCLIA [id number] [place] [address] [place] Anion gap [Moles/Vol] 10 mmol/L Normal 9-18 [facility] Comment on above: Order Comment: Speci men Type: BLOOD SPECIMENOrdering Facility: [facility] Address: [address] [place] [address] Performed By: #### H STNT, ####[facility] LABCLIA [id number] [address] [place] AST [Catalytic activity/Vol] 61 U/L High 14-40 [facility] Comment on above: Order Comment: Speci men Type: BLOOD SPECIMENOrdering Facility: [facility] Address: [address] [place], [place] [address] Performed By: #### H STNT, ####[facility] LABCLIA [id number] [place] [address] [place] Bilirubin [Mass/Vol] 0.8 mg/dL Normal 0.2-1.3 [facility] Comment on above: Order Comment: Speci men Type: BLOOD SPECIMENOrdering Facility: [facility] Address: [address] Performed By: #### H STNT, 55302-6 ####[facility] LABCLIA [id number] [place] [address] [place] Calcium [Mass/Vol] 8.4 mg/dL Low 8.5-10.2 [facility] Comment on above: Order Comment: Speci men Type: BLOOD SPECIMENOrdering Facility: [facility] Address: [address] Performed By: #### H STNT, 62839-9 ####[facility] LABCLIA [id number] [place] [address] [place] Chloride [Moles/Vol] 103 mmol/L Normal 97-105 [facility] Comment on above: Order Comment: Speci men Type: BLOOD SPECIMENOrdering Facility: [facility] Address: [address] [place] [address] Performed By: #### H STNT, 87147-3 ####[facility] LABCLIA [id number] [place] [address] [place] CO2 [Moles/Vol] 24 mmol/L Normal 22-30 [facility] Comment on above: Order Comment: Speci men Type: BLOOD SPECIMENOrdering Facility: [facility] Address: [address] [place], [place] [address] Performed By: #### H STNT, ####[facility] LABCLIA [id number] [place] [address] [place] Creatinine [Mass/Vol] 1.07 mg/dL Normal 0.73-1.22 [facility] Comment on above: Order Comment: Speci men Type: BLOOD SPECIMENOrdering Facility: [facility] Address: [address] [place] [address] Performed By: #### H STNT, ####[facility] LABCLIA [id number] [place] [address] [place] ESTIMATED GLOMERULAR FILTRATION RATE 69 mL/min/1.73m??? Normal >=60 [facility] Comment on above: Order Comment: Nilesjackelin huitron Type: BLOOD SPECIMENOrdering Facility: [facility] Address: [address] [place] [address] Result Comment: Emely mated Glomerular Filtration Rate (eGFR) is calculated using the 2020 CKD-EPI creatinine equation. This equation utilizes serum creatinine, sex, and age as parameters. The creatinine assay has traceable calibration to isotope dilution-mass spectrometry. Refer to KDIGO guidelines for clinical interpretation. In patients with unstable renal function, e.g. those with acute kidney injury, the eGFR may not accurately reflect actual GFR. Performed By: #### H STNT, 22257-9 ####[facility] [id number] [place] [address] [place] Glucose [Mass/Vol] 116 mg/dL High 74-99 [facility] Comment on above: Order Comment: Renay huitron Type: BLOOD SPECIMENOrdering Facility: [facility] Address: [address] [place] [address] Result Comment: The [place] [employer] (ADA) provides guidance for cutoff values for fasting glucose and random glucose. The ADA defines fasting as no caloric intake for at least 8 hours. Fasting plasma glucose results between 100 to 125 mg/dL indicate increased risk for diabetes (prediabetes).Fasting plasma glucose results greater than or equal to 126 mg/dL meet the criteria for diagnosis of diabetes. In the absence of unequivocal hyperglycemia, results should be confirmed by repeat testing. In a patient with classic symptoms of hyperglycemia or hyperglycemic crisis, random plasma glucose results greater than or equal to 200 mg/dL meet the criteria for diagnosis of diabetes.Reference: Standards of Medical Care in Diabetes 2016, [place] [employer]. Diabetes Care. 2016.39(Suppl 1). Performed By: #### H STNT, 76748-1 ####[facility] [id number] [place] [address] [place] Potassium [Moles/Vol] 4.7 mmol/L Normal 3.7-5.1 [facility] Comment on above: Order Comment: Speci men Type: BLOOD SPECIMENOrdering Facility: [facility] Address: [address] [place] [address] Performed By: #### H STNT, ####[facility] LABCLIA [id number] [place] [address] [place] Protein [Mass/Vol] 5.0 g/dL Low 6.3-8.0 [facility] Comment on above: Order Comment: Speci men Type: BLOOD SPECIMENOrdering Facility: [facility] Address: [address] [place], [place] [address] Performed By: #### H STNT, ####[facility] LABCLIA [id number] [place] [address] [place] Sodium [Moles/Vol] 137 mmol/L Normal 136-144 [facility] Comment on above: Order Comment: Speci men Type: BLOOD SPECIMENOrdering Facility: [facility] Address: [address] [place], [place] [address] Performed By: #### H STNT, ####[facility] LABCLIA [id number] [place] [address] [place] Urea nitrogen [Mass/Vol] 15 mg/dL Normal 9-24 [facility] Comment on above: Order Comment: Speci men Type: BLOOD SPECIMENOrdering Facility: [facility] Address: [address] [place] [address] Performed By: #### H STNT, ####[facility] LABCLIA [id number] [place] [address] [place] HIGH SENSITIVITY TROPONIN To n 12-05-2022 HIGH SENSITIVITY MAHAD 987 ng/L High <12 [facility] Comment on above: Order Comment: Speci men Type: BLOOD SPECIMENOrdering Facility: [facility] Address: [address] [place] [address] Result Comment: When assessing risk for acute coronary syndromes: In patients undergoing blood draw greater than or equal to 2 hours from symptom onset, with history of very low to moderate risk and non-ischemic ECG, an initial hs-Troponin T less than 12 ng/L AND a 1 hour delta hs-Troponin T less than 3 ng/L should be considered very low risk for 30 day MACE. Performed By: #### H STNT, 43204-6 ####[facility] LABCLIA [id number] [place] [address] [place] NURSING PROGon 12-05-2022 NURSING PROG Normal [facility] THERAPY NTon 12-05-2022 THERAPY NT Normal [facility] XR CHEST 1V FRONTALon 2022 XR CHEST 1V FRONTAL Normal [facility] ANES POSTPROC EVALon 023 ANES POSTPROC EVAL Normal [facility] ANES PRE-OPon 12-04-2022 ANES PRE-OP Normal [facility] ARTERIAL BLOOD GASESon 12-04 Base excess Calc (Bld) [Moles/Vol] 1 mmol/L Normal 0-2 [facility] Comment on above: Order Comment: Speci men Type: ARTERIAL BLOOD SPECIMENOrdering Facility: [facility] Address: [address] [address] Performed By: #### A LLBG ####[facility] LABIA [id number] [place] [address] [place] Body temperature 98.96 [degF] Normal [facility] Comment on above: Order Comment: Speci men Type: ARTERIAL BLOOD SPECIMENOrdering Facility: [facility] Address: [address] [address] Performed By: #### A LLBG ####[facility] LABCLIA [id number] [place] [address] [place] Calcium.ionized (Bld) [Mass/Vol] 1.18 mmol/L Normal 1.08-1.30 [facility] Comment on above: Order Comment: Speci men Type: ARTERIAL BLOOD SPECIMENOrdering Facility: [facility] Address: [address] [place] [address] Performed By: #### A LLBG ####[facility] LABCLIA [id number] [place] [address] [place] Calcium.ionized adjusted to pH 7.4 (BldA) [Moles/Vol] 1.18 mmol/L Normal 1.08-1.30 [facility] Comment on above: Order Comment: Speci men Type: ARTERIAL BLOOD SPECIMENOrdering Facility: [facility] Address: [address] [place] [address] Performed By: #### A LLBG ####[facility] LABCLIA [id number] [place] [address] [place] Carboxyhemoglobin (BldA) [Mass fraction] 0.8 % Normal 0.0-2.0 [facility] Comment on above: Order Comment: Speci men Type: ARTERIAL BLOOD SPECIMENOrdering Facility: [facility] Address: [address] [place] [address] Result Comment: Carb oxyhemoglobin Reference Range for Smokers: 2.0-8.0% Performed By: #### A LLBG ####[facility] LABCLIA [id number] [place] [address] [place] CO2 (Bld) [Partial pressure] 43 mm Hg Normal 36-46 [facility] Comment on above: Order Comment: Speci men Type: ARTERIAL BLOOD SPECIMENOrdering Facility: [facility] Address: [address] [place] [address] Performed By: #### A LLBG ####[facility] LABCLIA [id number] [place] [address] [place] CO2 [Moles/Vol] 27 mmol/L Normal 22-28 [facility] Comment on above: Order Comment: Speci men Type: ARTERIAL BLOOD SPECIMENOrdering Facility: [facility] Address: [address] Performed By: #### A LLBG ####[facility] LABCLIA [id number] [address] [place] CO2 adjusted to patient's actual temperature (Bld) [Partial pressure] 43 mmHg Normal 36-46 [facility] Comment on above: Order Comment: Speci men Type: ARTERIAL BLOOD SPECIMENOrdering Facility: [facility] Address: [address] Performed By: #### A LLBG ####[facility] LABCLIA [id number] [place] [address] [place] Glucose [Mass/Vol] 145 mg/dL High 60-105 [facility] Comment on above: Order Comment: Speci men Type: ARTERIAL BLOOD SPECIMENOrdering Facility: [facility] Address: [address] [place], [place] [address] Performed By: #### A LLBG ####[facility] LABCLIA [id number] [place] [address] [place] HCO3 (Bld) [Moles/Vol] 26 mmol/L Normal 22-26 [facility] Comment on above: Order Comment: Speci men Type: ARTERIAL BLOOD SPECIMENOrdering Facility: [facility] Address: [address] Performed By: #### A LLBG ####[facility] LABCLIA [id number] [place] [address] [place] Hematocrit (Bld) [Volume fraction] 35.9 % Low 39.0-51.0 [facility] Comment on above: Order Comment: Speci men Type: ARTERIAL BLOOD SPECIMENOrdering Facility: [facility] Address: [address] [place], [place] [address] Performed By: #### A LLBG ####[facility] LABCLIA [id number] [place] [address] [place] Hemoglobin (Bld) [Mass/Vol] 11.7 g/dL Low 13.0-17.0 [facility] Comment on above: Order Comment: Speci men Type: ARTERIAL BLOOD SPECIMENOrdering Facility: [facility] Address: [address] [place] [address] Performed By: #### A LLBG ####[facility] LABIA [id number] [place] [address] [place] Lactate [Moles/Vol] 1.8 mmol/L Normal 0.5-2.2 [facility] Comment on above: Order Comment: Speci men Type: ARTERIAL BLOOD SPECIMENOrdering Facility: [facility] Address: [address] [place] [address] Performed By: #### A LLBG ####[facility] LABIA [id number] [address] [place] LITERS 5 Liters/min Normal [facility] Comment on above: Order Comment: Speci men Type: ARTERIAL BLOOD SPECIMENOrdering Facility: [facility] Address: [address] [place], [place] [address] Performed By: #### A LLBG ####[facility] LABIA [id number] [place] [address] [place] Methemoglobin (Bld) [Mass fraction] 0.7 % Normal 0.0-1.5 [facility] Comment on above: Order Comment: Speci men Type: ARTERIAL BLOOD SPECIMENOrdering Facility: [facility] Address: [address] [place], [place] [address] Performed By: #### A LLBG ####[facility] LABIA [id number] [place] [address] [place] O2 THERAPY NC = Nasal Cannula Normal [facility] Comment on above: Order Comment: Speci men Type: ARTERIAL BLOOD SPECIMENOrdering Facility: [facility] Address: [address] [place], [place] Performed By: #### A LLBG ####[facility] LABCLIA [id number] [address] [place] Oxygen (Bld) [Partial pressure] 148 mm Hg High 85-95 [facility] Comment on above: Order Comment: Speci men Type: ARTERIAL BLOOD SPECIMENOrdering Facility: [facility] Address: [address] [place] [address] Performed By: #### A LLBG ####[facility] LABIA [id number] [place] [address] [place] [facility] [place] Oxygen adjusted to patient's actual temperature (Bld) [Partial pressure] 149 mmHg High 85-95 [facility] Comment on above: Order Comment: Speci men Type: ARTERIAL BLOOD SPECIMENOrdering Facility: [facility] Address: [address] [place] [address] Performed By: #### A LLBG ####[facility] LABIA [id number] [place] [address] [place] Oxyhemoglobin (BldA) [Mass fraction] 97 % Normal 95-98 [facility] Comment on above: Order Comment: Speci men Type: ARTERIAL BLOOD SPECIMENOrdering Facility: [facility] Address: [address] [place], [place] Performed By: #### A LLBG ####[facility] LABIA [id number] [place] [address] [place] pH (Bld) 7.40 [pH] Normal 7.35-7.45 [facility] Comment on above: Order Comment: Speci men Type: ARTERIAL BLOOD SPECIMENOrdering Facility: [facility] Address: [address] [id number] Performed By: #### A LLBG ####[facility] LABCLIA [id number] [address] [id number] [address] [place] pH adjusted to patient's actual temperature (Bld) 7.39 Normal 7.35-7.45 [facility] Comment on above: Order Comment: Speci men Type: ARTERIAL BLOOD SPECIMENOrdering Facility: [facility] Address: [address] [place] [address] Performed By: #### A LLBG ####[facility] LABCLIA [id number] [place] [address] [place] Potassium [Moles/Vol] 4.7 mmol/L Normal 3.5-5.0 [facility] Comment on above: Order Comment: Speci men Type: ARTERIAL BLOOD SPECIMENOrdering Facility: [facility] Address: [address] [place] [address] Performed By: #### A LLBG ####[facility] LABIA [id number] [place] [address] [place] Sodium [Moles/Vol] 135 mmol/L Low 136-144 [facility] Comment on above: Order Comment: Speci men Type: ARTERIAL BLOOD SPECIMENOrdering Facility: [facility] Address: [address] [place] [address] Performed By: #### A LLBG ####[facility] LABCLIA [id number] [place] [address] [place] Base excess Calc (Bld) [Moles/Vol] 1 mmol/L Normal 0-2 [facility] Comment on above: Order Comment: Speci men Type: ARTERIAL BLOOD SPECIMENOrdering Facility: [facility] Address: [address] [place] [address] Performed By: #### A LLBG ####[facility] LABCLIA [id number] [place] [address] [place] Body temperature 98.96 [degF] Normal [facility] Comment on above: Order Comment: Speci men Type: ARTERIAL BLOOD SPECIMENOrdering Facility: [facility] Address: [address] [place], [place] [address] Performed By: #### A LLBG ####[facility] [id number] [place] [address] [place] Calcium.ionized (Bld) [Mass/Vol] 1.17 mmol/L Normal 1.08-1.30 [facility] Comment on above: Order Comment: Speci men Type: ARTERIAL BLOOD SPECIMENOrdering Facility: [facility] Address: [address] [place], [place] [address] Performed By: #### A LLBG ####[facility] [id number] [place] [address] [place] Calcium.ionized adjusted to pH 7.4 (BldA) [Moles/Vol] 1.17 mmol/L Normal 1.08-1.30 [facility] Comment on above: Order Comment: Speci men Type: ARTERIAL BLOOD SPECIMENOrdering Facility: [facility] Address: [address] [place], [place] [address] Performed By: #### A LLBG ####[facility] [id number] [place] [address] [place] Carboxyhemoglobin (BldA) [Mass fraction] 0.8 % Normal 0.0-2.0 [facility] Comment on above: Order Comment: Speci men Type: ARTERIAL BLOOD SPECIMENOrdering Facility: [facility] Address: [address] [place] [address] Result Comment: Carb oxyhemoglobin Reference Range for Smokers: 2.0-8.0% Performed By: #### A LLBG ####[facility] [id number] [place] [address] [place] CO2 (Bld) [Partial pressure] 42 mm Hg Normal 36-46 [facility] Comment on above: Order Comment: Speci men Type: ARTERIAL BLOOD SPECIMENOrdering Facility: [facility] Address: [address] [place] [address] Performed By: #### A LLBG ####[facility] LABCLIA [id number] [place] [address] [place] CO2 [Moles/Vol] 27 mmol/L Normal 22-28 [facility] Comment on above: Order Comment: Speci men Type: ARTERIAL BLOOD SPECIMENOrdering Facility: [facility] Address: [address] [place], [place] [address] Performed By: #### A LLBG ####[facility] LABCLIA [id number] [place] [address] [place] CO2 adjusted to patient's actual temperature (Bld) [Partial pressure] 43 mmHg Normal 36-46 [facility] Comment on above: Order Comment: Speci men Type: ARTERIAL BLOOD SPECIMENOrdering Facility: [facility] Address: [address] [place] [address] Performed By: #### A LLBG ####[facility] LABCLIA [id number] [place] [address] [place] FIO2 40 % Normal [facility] Comment on above: Order Comment: Speci men Type: ARTERIAL BLOOD SPECIMENOrdering Facility: [facility] Address: [address] [place], [place] [address] Performed By: #### A LLBG ####[facility] LABCLIA [id number] [place] [address] [place] Glucose [Mass/Vol] 173 mg/dL High 60-105 [facility] Comment on above: Order Comment: Speci men Type: ARTERIAL BLOOD SPECIMENOrdering Facility: [facility] Address: [address] Performed By: #### A LLBG ####[facility] LABCLIA [id number] [place] [id number] [place] HCO3 (Bld) [Moles/Vol] 25 mmol/L Normal 22-26 [facility] Comment on above: Order Comment: Speci men Type: ARTERIAL BLOOD SPECIMENOrdering Facility: [facility] Address: [address] [address] Performed By: #### A LLBG ####[facility] LABIA [id number] [address] [place] Hematocrit (Bld) [Volume fraction] 38.1 % Low 39.0-51.0 [facility] Comment on above: Order Comment: Speci men Type: ARTERIAL BLOOD SPECIMENOrdering Facility: [facility] Address: [address] [address] Performed By: #### A LLBG ####[facility] LABIA [id number] [address] [place] Hemoglobin (Bld) [Mass/Vol] 12.4 g/dL Low 13.0-17.0 [facility] Comment on above: Order Comment: Speci men Type: ARTERIAL BLOOD SPECIMENOrdering Facility: [facility] Address: [address] Performed By: #### A LLBG ####[facility] LABIA [id number] [place] [address] [place] Lactate [Moles/Vol] 1.5 mmol/L Normal 0.5-2.2 [facility] Comment on above: Order Comment: Speci men Type: ARTERIAL BLOOD SPECIMENOrdering Facility: [facility] Address: [address] Performed By: #### A LLBG ####[facility] LABIA [id number] [place] [address] [place] Methemoglobin (Bld) [Mass fraction] 1.6 % High 0.0-1.5 [facility] Comment on above: Order Comment: Speci men Type: ARTERIAL BLOOD SPECIMENOrdering Facility: [facility] Address: [address] Performed By: #### A LLBG ####[facility] LABCLIA [id number] [place] [address] [place] O2 THERAPY Ventilator Normal [facility] Comment on above: Order Comment: Speci men Type: ARTERIAL BLOOD SPECIMENOrdering Facility: [facility] Address: [address] [place] [address] Performed By: #### A LLBG ####[facility] LABCLIA [id number] [address] [place] Oxygen (Bld) [Partial pressure] 134 mm Hg High 85-95 [facility] Comment on above: Order Comment: Speci men Type: ARTERIAL BLOOD SPECIMENOrdering Facility: [facility] Address: [address] [place] [address] Performed By: #### A LLBG ####[facility] LABCLIA [id number] [address] [place] Oxygen adjusted to patient's actual temperature (Bld) [Partial pressure] 135 mmHg High 85-95 [facility] Comment on above: Order Comment: Speci men Type: ARTERIAL BLOOD SPECIMENOrdering Facility: [facility] Address: [address] [place], [place] [address] Performed By: #### A LLBG ####[facility] LABCLIA [id number] [place] [address] [place] Oxyhemoglobin (BldA) [Mass fraction] 96 % Normal 95-98 [facility] Comment on above: Order Comment: Speci men Type: ARTERIAL BLOOD SPECIMENOrdering Facility: [facility] Address: [address] [place], [place] [address] Performed By: #### A LLBG ####[facility] LABCLIA [id number] [place] [address] [place] pH (Bld) 7.40 [pH] Normal 7.35-7.45 [facility] Comment on above: Order Comment: Speci men Type: ARTERIAL BLOOD SPECIMENOrdering Facility: [facility] Address: [address] Performed By: #### A LLBG ####[facility] LABCLIA [id number] [place] [address] [place] pH adjusted to patient's actual temperature (Bld) 7.39 Normal 7.35-7.45 [facility] Comment on above: Order Comment: Speci men Type: ARTERIAL BLOOD SPECIMENOrdering Facility: [facility] Address: [address] Performed By: #### A LLBG ####[facility] LABCLIA [id number] [place] [address] [place] Potassium [Moles/Vol] 4.6 mmol/L Normal 3.5-5.0 [facility] Comment on above: Order Comment: Speci men Type: ARTERIAL BLOOD SPECIMENOrdering Facility: [facility] Address: [address] Performed By: #### A LLBG ####[facility] LABCLIA [id number] [place] [address] [place] Sodium [Moles/Vol] 134 mmol/L Low 136-144 [facility] Comment on above: Order Comment: Speci men Type: ARTERIAL BLOOD SPECIMENOrdering Facility: [facility] Address: [address] Performed By: #### A LLBG ####[facility] LABCLIA [id number] [place] [address] [place] Base excess Calc (Bld) [Moles/Vol] 0 mmol/L Normal 0-2 [facility] Comment on above: Order Comment: Speci men Type: ARTERIAL BLOOD SPECIMENOrdering Facility: [facility] Address: [address] Performed By: #### A LLBG ####[facility] LABCLIA [id number] [place] [address] [place] Body temperature 99.14 [degF] Normal [facility] Comment on above: Order Comment: Speci men Type: ARTERIAL BLOOD SPECIMENOrdering Facility: [facility] Address: [address] [place] [address] Performed By: #### A LLBG ####[facility] LABIA [id number] [place] [address] [place] Calcium.ionized (Bld) [Mass/Vol] 1.19 mmol/L Normal 1.08-1.30 [facility] Comment on above: Order Comment: Speci men Type: ARTERIAL BLOOD SPECIMENOrdering Facility: [facility] Address: [address] [place] [address] Performed By: #### A LLBG ####[facility] [id number] [address] [place] Calcium.ionized adjusted to pH 7.4 (BldA) [Moles/Vol] 1.21 mmol/L Normal 1.08-1.30 [facility] Comment on above: Order Comment: Speci men Type: ARTERIAL BLOOD SPECIMENOrdering Facility: [facility] Address: [address] [place], [place] [address] Performed By: #### A LLBG ####[facility] [id number] [address] [place] Carboxyhemoglobin (BldA) [Mass fraction] 0.7 % Normal 0.0-2.0 [facility] Comment on above: Order Comment: Speci men Type: ARTERIAL BLOOD SPECIMENOrdering Facility: [facility] Address: [address] [place], [place] [address] Result Comment: Carb oxyhemoglobin Reference Range for Smokers: 2.0-8.0% Performed By: #### A LLBG ####[facility] [id number] [address] [place] CO2 (Bld) [Partial pressure] 36 mm Hg Normal 36-46 [facility] Comment on above: Order Comment: Speci men Type: ARTERIAL BLOOD SPECIMENOrdering Facility: [facility] Address: [address] Performed By: #### A LLBG ####[facility] LABCLIA [id number] [address] [place] CO2 [Moles/Vol] 25 mmol/L Normal 22-28 [facility] Comment on above: Order Comment: Speci men Type: ARTERIAL BLOOD SPECIMENOrdering Facility: [facility] Address: [address] Performed By: #### A LLBG ####[facility] LABCLIA [id number] [address] [place] CO2 adjusted to patient's actual temperature (Bld) [Partial pressure] 37 mmHg Normal 36-46 [facility] Comment on above: Order Comment: Speci men Type: ARTERIAL BLOOD SPECIMENOrdering Facility: [facility] Address: [address] Performed By: #### A LLBG ####[facility] LABCLIA [id number] [place] [address] [place] FIO2 40 % Normal [facility] Comment on above: Order Comment: Speci men Type: ARTERIAL BLOOD SPECIMENOrdering Facility: [facility] Address: [address] Performed By: #### A LLBG ####[facility] LABCLIA [id number] [place] [address] [place] Glucose [Mass/Vol] 165 mg/dL High 60-105 [facility] Comment on above: Order Comment: Speci men Type: ARTERIAL BLOOD SPECIMENOrdering Facility: [facility] Address: [address] Performed By: #### A LLBG ####[facility] LABCLIA [id number] [place] [address] [place] HCO3 (Bld) [Moles/Vol] 24 mmol/L Normal 22-26 [facility] Comment on above: Order Comment: Speci men Type: ARTERIAL BLOOD SPECIMENOrdering Facility: [facility] Address: [address] [place] [address] Performed By: #### A LLBG ####[facility] LABCLIA [id number] [place] [address] [place] Hematocrit (Bld) [Volume fraction] 38.5 % Low 39.0-51.0 [facility] Comment on above: Order Comment: Speci men Type: ARTERIAL BLOOD SPECIMENOrdering Facility: [facility] Address: [address] [place] [address] Performed By: #### A LLBG ####[facility] LABIA [id number] [place] [address] [place] Hemoglobin (Bld) [Mass/Vol] 12.5 g/dL Low 13.0-17.0 [facility] Comment on above: Order Comment: Speci men Type: ARTERIAL BLOOD SPECIMENOrdering Facility: [facility] Address: [address] [place] [address] Performed By: #### A LLBG ####[facility] LABIA [id number] [place] [address] [place] Lactate [Moles/Vol] 1.7 mmol/L Normal 0.5-2.2 [facility] Comment on above: Order Comment: Speci men Type: ARTERIAL BLOOD SPECIMENOrdering Facility: [facility] Address: [address] [place] [address] Performed By: #### A LLBG ####[facility] LABIA [id number] [place] [address] [place] Methemoglobin (Bld) [Mass fraction] 1.5 % Normal 0.0-1.5 [facility] Comment on above: Order Comment: Speci men Type: ARTERIAL BLOOD SPECIMENOrdering Facility: [facility] Address: [address] Performed By: #### A LLBG ####[facility] LABCLIA [id number] [address] [place] O2 THERAPY Ventilator Normal [facility] Comment on above: Order Comment: Speci men Type: ARTERIAL BLOOD SPECIMENOrdering Facility: [facility] Address: [address] Performed By: #### A LLBG ####[facility] LABCLIA [id number] [address] [place] Oxygen (Bld) [Partial pressure] 141 mm Hg High 85-95 [facility] Comment on above: Order Comment: Speci men Type: ARTERIAL BLOOD SPECIMENOrdering Facility: [facility] Address: [address] Performed By: #### A LLBG ####[facility] LABCLIA [id number] [address] [place] Oxygen adjusted to patient's actual temperature (Bld) [Partial pressure] 143 mmHg High 85-95 [facility] Comment on above: Order Comment: Speci men Type: ARTERIAL BLOOD SPECIMENOrdering Facility: [facility] Address: [address] [place] [address] Performed By: #### A LLBG ####[facility] LABCLIA [id number] [place] [address] [place] Oxyhemoglobin (BldA) [Mass fraction] 97 % Normal 95-98 [facility] Comment on above: Order Comment: Speci men Type: ARTERIAL BLOOD SPECIMENOrdering Facility: [facility] Address: [address] Performed By: #### A LLBG ####[facility] LABCLIA [id number] [place] [address] [place] pH (Bld) 7.43 [pH] Normal 7.35-7.45 [facility] Comment on above: Order Comment: Speci men Type: ARTERIAL BLOOD SPECIMENOrdering Facility: [facility] Address: [address] [place] [address] Performed By: #### A LLBG ####[facility] LABCLIA [id number] [place] [address] [place] pH adjusted to patient's actual temperature (Bld) 7.43 Normal 7.35-7.45 [facility] Comment on above: Order Comment: Speci men Type: ARTERIAL BLOOD SPECIMENOrdering Facility: [facility] Address: [address] [place] [address] Performed By: #### A LLBG ####[facility] LABIA [id number] [place] [address] [place] Potassium [Moles/Vol] 4.2 mmol/L Normal 3.5-5.0 [facility] Comment on above: Order Comment: Speci men Type: ARTERIAL BLOOD SPECIMENOrdering Facility: [facility] Address: [address] [place], [place] [address] Performed By: #### A LLBG ####[facility] LABIA [id number] [place] [address] [place] Sodium [Moles/Vol] 133 mmol/L Low 136-144 [facility] Comment on above: Order Comment: Speci men Type: ARTERIAL BLOOD SPECIMENOrdering Facility: [facility] Address: [address] [place], [place] [address] Performed By: #### A LLBG ####[facility] LABCLIA [id number] [place] [address] [place] Base excess Calc (Bld) [Moles/Vol] 3 mmol/L High 0-2 [facility] Comment on above: Order Comment: Speci men Type: ARTERIAL BLOOD SPECIMENOrdering Facility: [facility] Address: [address] Performed By: #### A LLBG ####[facility] LABIA [id number] [place] [address] [place] Body temperature 97.88 [degF] Normal [facility] Comment on above: Order Comment: Speci men Type: ARTERIAL BLOOD SPECIMENOrdering Facility: [facility] Address: [address] Performed By: #### A LLBG ####[facility] [id number] [place] [address] [place] Calcium.ionized (Bld) [Mass/Vol] 1.19 mmol/L Normal 1.08-1.30 [facility] Comment on above: Order Comment: Speci men Type: ARTERIAL BLOOD SPECIMENOrdering Facility: [facility] Address: [address] [place], [place] [address] Performed By: #### A LLBG ####[facility] [id number] [place] [address] [place] Calcium.ionized adjusted to pH 7.4 (BldA) [Moles/Vol] 1.25 mmol/L Normal 1.08-1.30 [facility] Comment on above: Order Comment: Speci men Type: ARTERIAL BLOOD SPECIMENOrdering Facility: [facility] Address: [address] Performed By: #### A LLBG ####[facility] [id number] [place] [address] [place] Carboxyhemoglobin (BldA) [Mass fraction] 1.3 % Normal 0.0-2.0 [facility] Comment on above: Order Comment: Speci men Type: ARTERIAL BLOOD SPECIMENOrdering Facility: [facility] Address: [address] [place] [address] Result Comment: Carb oxyhemoglobin Reference Range for Smokers: 2.0-8.0% Performed By: #### A LLBG ####[facility] LABCLIA [id number] [address] [place] [facility] CO2 (Bld) [Partial pressure] 35 mm Hg Low 36-46 [facility] Comment on above: Order Comment: Speci men Type: ARTERIAL BLOOD SPECIMENOrdering Facility: [facility] Address: [address] Performed By: #### A LLBG ####[facility] LABCLIA [id number] [place] [address] [place] CO2 [Moles/Vol] 27 mmol/L Normal 22-28 [facility] Comment on above: Order Comment: Speci men Type: ARTERIAL BLOOD SPECIMENOrdering Facility: [facility] Address: [address] Performed By: #### A LLBG ####[facility] LABCLIA [id number] [address] [place] [facility] CO2 adjusted to patient's actual temperature (Bld) [Partial pressure] 34 mmHg Low 36-46 [facility] Comment on above: Order Comment: Speci men Type: ARTERIAL BLOOD SPECIMENOrdering Facility: [facility] Address: [address] Performed By: #### A LLBG ####[facility] LABCLIA [id number] [place] [address] [place] FIO2 40 % Normal [facility] Comment on above: Order Comment: Speci men Type: ARTERIAL BLOOD SPECIMENOrdering Facility: [facility] Address: [address] Performed By: #### A LLBG ####[facility] LABCLIA [id number] [place] [address] [place] Glucose [Mass/Vol] 135 mg/dL High 60-105 [facility] Comment on above: Order Comment: Speci men Type: ARTERIAL BLOOD SPECIMENOrdering Facility: [facility] Address: [address] [place], [place] [address] Performed By: #### A LLBG ####[facility] LABCLIA [id number] [place] [address] [place] HCO3 (Bld) [Moles/Vol] 26 mmol/L Normal 22-26 [facility] Comment on above: Order Comment: Speci men Type: ARTERIAL BLOOD SPECIMENOrdering Facility: [facility] Address: [address] [place], [place] [address] Performed By: #### A LLBG ####[facility] LABCLIA [id number] [place] [address] [place] Hematocrit (Bld) [Volume fraction] 38.4 % Low 39.0-51.0 [facility] Comment on above: Order Comment: Speci men Type: ARTERIAL BLOOD SPECIMENOrdering Facility: [facility] Address: [address] [place], [place] [address] Performed By: #### A LLBG ####[facility] LABCLIA [id number] [place] [address] [place] Hemoglobin (Bld) [Mass/Vol] 12.5 g/dL Low 13.0-17.0 [facility] Comment on above: Order Comment: Speci men Type: ARTERIAL BLOOD SPECIMENOrdering Facility: [facility] Address: [address] [place], [place] [address] Performed By: #### A LLBG ####[facility] LABCLIA [id number] [place] [address] [place] Lactate [Moles/Vol] 1.3 mmol/L Normal 0.5-2.2 [facility] Comment on above: Order Comment: Speci men Type: ARTERIAL BLOOD SPECIMENOrdering Facility: [facility] Address: [address] [place], [place] Performed By: #### A LLBG ####[facility] LABCLIA [id number] [address] [place] Methemoglobin (Bld) [Mass fraction] 1.4 % Normal 0.0-1.5 [facility] Comment on above: Order Comment: Speci men Type: ARTERIAL BLOOD SPECIMENOrdering Facility: [facility] Address: [address] Performed By: #### A LLBG ####[facility] LABCLIA [id number] [address] [place] O2 THERAPY Ventilator Normal [facility] Comment on above: Order Comment: Speci men Type: ARTERIAL BLOOD SPECIMENOrdering Facility: [facility] Address: [address] Performed By: #### A LLBG ####[facility] LABCLIA [id number] [place] [address] [place] Oxygen (Bld) [Partial pressure] 129 mm Hg High 85-95 [facility] Comment on above: Order Comment: Speci men Type: ARTERIAL BLOOD SPECIMENOrdering Facility: [facility] Address: [address] [place], [place] Performed By: #### A LLBG ####[facility] LABCLIA [id number] [address] [place] Oxygen adjusted to patient's actual temperature (Bld) [Partial pressure] 127 mmHg High 85-95 [facility] Comment on above: Order Comment: Speci men Type: ARTERIAL BLOOD SPECIMENOrdering Facility: [facility] Address: [address] [place] [address] Performed By: #### A LLBG ####[facility] LABCLIA [id number] [place] [address] [place] Oxyhemoglobin (BldA) [Mass fraction] 97 % Normal 95-98 [facility] Comment on above: Order Comment: Speci men Type: ARTERIAL BLOOD SPECIMENOrdering Facility: [facility] Address: [address] Performed By: #### A LLBG ####[facility] LABIA [id number] [place] [address] [place] pH (Bld) 7.48 [pH] High 7.35-7.45 [facility] Comment on above: Order Comment: Speci men Type: ARTERIAL BLOOD SPECIMENOrdering Facility: [facility] Address: [address] Performed By: #### A LLBG ####[facility] LABIA [id number] [place] [address] [place] pH adjusted to patient's actual temperature (Bld) 7.49 High 7.35-7.45 [facility] Comment on above: Order Comment: Speci men Type: ARTERIAL BLOOD SPECIMENOrdering Facility: [facility] Address: [address] Performed By: #### A LLBG ####[facility] LABIA [id number] [place] [address] [place] Potassium [Moles/Vol] 4.0 mmol/L Normal 3.5-5.0 [facility] Comment on above: Order Comment: Speci men Type: ARTERIAL BLOOD SPECIMENOrdering Facility: [facility] Address: [address] Performed By: #### A LLBG ####[facility] LABIA [id number] [place] [address] [place] Sodium [Moles/Vol] 134 mmol/L Low 136-144 [facility] Comment on above: Order Comment: Speci men Type: ARTERIAL BLOOD SPECIMENOrdering Facility: [facility] Address: [address] Performed By: #### A LLBG ####[facility] LABIA [id number] [place] [address] [place] Base excess Calc (Bld) [Moles/Vol] 2 mmol/L Normal 0-2 [facility] Comment on above: Order Comment: Speci men Type: ARTERIAL BLOOD SPECIMENOrdering Facility: [facility] Address: [address] Performed By: #### A LLBG ####[facility] [id number] [place] [address] [place] Calcium.ionized (Bld) [Mass/Vol] 1.08 mmol/L Normal 1.08-1.30 [facility] Comment on above: Order Comment: Speci men Type: ARTERIAL BLOOD SPECIMENOrdering Facility: [facility] Address: [address] Performed By: #### A LLBG ####[facility] [id number] [place] [address] [place] Calcium.ionized adjusted to pH 7.4 (BldA) [Moles/Vol] 1.09 mmol/L Normal 1.08-1.30 [facility] Comment on above: Order Comment: Speci men Type: ARTERIAL BLOOD SPECIMENOrdering Facility: [facility] Address: [address] Performed By: #### A LLBG ####[facility] [id number] [place] [address] [place] Carboxyhemoglobin (BldA) [Mass fraction] 1.3 % Normal 0.0-2.0 [facility] Comment on above: Order Comment: Speci men Type: ARTERIAL BLOOD SPECIMENOrdering Facility: [facility] Address: [address] [place], [place] [address] Result Comment: Carb oxyhemoglobin Reference Range for Smokers: 2.0-8.0% Performed By: #### A LLBG ####[facility] LABCLIA [id number] [place] [address] [place] CO2 (Bld) [Partial pressure] 41 mm Hg Normal 36-46 [facility] Comment on above: Order Comment: Speci men Type: ARTERIAL BLOOD SPECIMENOrdering Facility: [facility] Address: [address] [place] [address] Performed By: #### A LLBG ####[facility] LABCLIA [id number] [place] [address] [place] CO2 [Moles/Vol] 28 mmol/L Normal 22-28 [facility] Comment on above: Order Comment: Speci men Type: ARTERIAL BLOOD SPECIMENOrdering Facility: [facility] Address: [address] [place] [address] Performed By: #### A LLBG ####[facility] LABCLIA [id number] [place] [address] [place] CO2 adjusted to patient's actual temperature (Bld) [Partial pressure] 41 mmHg Normal 36-46 [facility] Comment on above: Order Comment: Speci men Type: ARTERIAL BLOOD SPECIMENOrdering Facility: [facility] Address: [address] [place], [place] [address] Performed By: #### A LLBG ####[facility] LABCLIA [id number] [place] [address] [place] Glucose [Mass/Vol] 195 mg/dL High 60-105 [facility] Comment on above: Order Comment: Speci men Type: ARTERIAL BLOOD SPECIMENOrdering Facility: [facility] Address: [address] [place], [place] [address] Performed By: #### A LLBG ####[facility] LABCLIA [id number] [place] [address] [place] HCO3 (Bld) [Moles/Vol] 26 mmol/L Normal 22-26 [facility] Comment on above: Order Comment: Speci men Type: ARTERIAL BLOOD SPECIMENOrdering Facility: [facility] Address: [address] [address] Performed By: #### A LLBG ####[facility] LABIA [id number] [place] [address] [place] Hematocrit (Bld) [Volume fraction] 33.0 % Low 39.0-51.0 [facility] Comment on above: Order Comment: Speci men Type: ARTERIAL BLOOD SPECIMENOrdering Facility: [facility] Address: [address] [address] Performed By: #### A LLBG ####[facility] LABIA [id number] [place] [address] [place] Hemoglobin (Bld) [Mass/Vol] 10.7 g/dL Low 13.0-17.0 [facility] Comment on above: Order Comment: Speci men Type: ARTERIAL BLOOD SPECIMENOrdering Facility: [facility] Address: [address] Performed By: #### A LLBG ####[facility] LABIA [id number] [place] [address] [place] Lactate [Moles/Vol] 1.1 mmol/L Normal 0.5-2.2 [facility] Comment on above: Order Comment: Speci men Type: ARTERIAL BLOOD SPECIMENOrdering Facility: [facility] Address: [address] Performed By: #### A LLBG ####[facility] LABIA [id number] [address] [place] Methemoglobin (Bld) [Mass fraction] 0.8 % Normal 0.0-1.5 [facility] Comment on above: Order Comment: Speci men Type: ARTERIAL BLOOD SPECIMENOrdering Facility: [facility] Address: [address] Performed By: #### A LLBG ####[facility] LABCLIA [id number] [place] [address] [place] Oxygen (Bld) [Partial pressure] 300 mm Hg High 85-95 [facility] Comment on above: Order Comment: Speci men Type: ARTERIAL BLOOD SPECIMENOrdering Facility: [facility] Address: [address] [place] [address] Performed By: #### A LLBG ####[facility] LABCLIA [id number] [address] [place] Oxygen adjusted to patient's actual temperature (Bld) [Partial pressure] 300 mmHg High 85-95 [facility] Comment on above: Order Comment: Speci men Type: ARTERIAL BLOOD SPECIMENOrdering Facility: [facility] Address: [address] [place] [address] Performed By: #### A LLBG ####[facility] LABCLIA [id number] [place] [address] [place] Oxyhemoglobin (BldA) [Mass fraction] 98 % Normal 95-98 [facility] Comment on above: Order Comment: Speci men Type: ARTERIAL BLOOD SPECIMENOrdering Facility: [facility] Address: [address] [place] [address] Performed By: #### A LLBG ####[facility] LABCLIA [id number] [place] [address] [place] pH (Bld) 7.42 [pH] Normal 7.35-7.45 [facility] Comment on above: Order Comment: Speci men Type: ARTERIAL BLOOD SPECIMENOrdering Facility: [facility] Address: [address] [place] [address] Performed By: #### A LLBG ####[facility] LABCLIA [id number] [place] [address] [place] pH adjusted to patient's actual temperature (Bld) 7.42 Normal 7.35-7.45 [facility] Comment on above: Order Comment: Speci men Type: ARTERIAL BLOOD SPECIMENOrdering Facility: [facility] Address: [address] Performed By: #### A LLBG ####[facility] LABIA [id number] [place] [address] [place] Potassium [Moles/Vol] 4.3 mmol/L Normal 3.5-5.0 [facility] Comment on above: Order Comment: Speci men Type: ARTERIAL BLOOD SPECIMENOrdering Facility: [facility] Address: [address] [place] [address] Performed By: #### A LLBG ####[facility] LABIA [id number] [place] [address] [place] Sodium [Moles/Vol] 134 mmol/L Low 136-144 [facility] Comment on above: Order Comment: Speci men Type: ARTERIAL BLOOD SPECIMENOrdering Facility: [facility] Address: [address] [place] [address] Performed By: #### A LLBG ####[facility] LABIA [id number] [place] [address] [place] Base excess Calc (Bld) [Moles/Vol] 2 mmol/L Normal 0-2 [facility] Comment on above: Order Comment: Speci men Type: ARTERIAL BLOOD SPECIMENOrdering Facility: [facility] Address: [address] Performed By: #### A LLBG ####[facility] LABIA [id number] [place] [address] [place] Calcium.ionized (Bld) [Mass/Vol] 1.11 mmol/L Normal 1.08-1.30 [facility] Comment on above: Order Comment: Speci men Type: ARTERIAL BLOOD SPECIMENOrdering Facility: [facility] Address: [address] Performed By: #### A LLBG ####[facility] LABCLIA [id number] [place] [address] [place] Calcium.ionized adjusted to pH 7.4 (BldA) [Moles/Vol] 1.12 mmol/L Normal 1.08-1.30 [facility] Comment on above: Order Comment: Speci men Type: ARTERIAL BLOOD SPECIMENOrdering Facility: [facility] Address: [address] Performed By: #### A LLBG ####[facility] LABIA [id number] [address] [place] Carboxyhemoglobin (BldA) [Mass fraction] 0.4 % Normal 0.0-2.0 [facility] Comment on above: Order Comment: Speci men Type: ARTERIAL BLOOD SPECIMENOrdering Facility: [facility] Address: [address] [place] [address] Result Comment: Carb oxyhemoglobin Reference Range for Smokers: 2.0-8.0% Performed By: #### A LLBG ####[facility] LABIA [id number] [address] [place] CO2 (Bld) [Partial pressure] 42 mm Hg Normal 36-46 [facility] Comment on above: Order Comment: Speci men Type: ARTERIAL BLOOD SPECIMENOrdering Facility: [facility] Address: [address] [place] [address] Performed By: #### A LLBG ####[facility] LABCLIA [id number] [address] [place] CO2 adjusted to patient's actual temperature (Bld) [Partial pressure] 42 mmHg Normal 36-46 [facility] Comment on above: Order Comment: Speci men Type: ARTERIAL BLOOD SPECIMENOrdering Facility: [facility] Address: [address] [place] [address] Performed By: #### A LLBG ####[facility] LABCLIA [id number] [place] [address] [place] Glucose [Mass/Vol] 137 mg/dL High 60-105 [facility] Comment on above: Order Comment: Speci men Type: ARTERIAL BLOOD SPECIMENOrdering Facility: [facility] Address: [address] [place] [address] Performed By: #### A LLBG ####[facility] LABCLIA [id number] [place] [address] [place] HCO3 (Bld) [Moles/Vol] 26 mmol/L Normal 22-26 [facility] Comment on above: Order Comment: Speci men Type: ARTERIAL BLOOD SPECIMENOrdering Facility: [facility] Address: [address] [place] [address] Performed By: #### A LLBG ####[facility] LABCLIA [id number] [place] [address] [place] Hematocrit (Bld) [Volume fraction] 34.4 % Low 39.0-51.0 [facility] Comment on above: Order Comment: Speci men Type: ARTERIAL BLOOD SPECIMENOrdering Facility: [facility] Address: [address] [place] [address] Performed By: #### A LLBG ####[facility] LABCLIA [id number] [place] [address] [place] Hemoglobin (Bld) [Mass/Vol] 11.2 g/dL Low 13.0-17.0 [facility] Comment on above: Order Comment: Speci men Type: ARTERIAL BLOOD SPECIMENOrdering Facility: [facility] Address: [address] [place] [address] Performed By: #### A LLBG ####[facility] LABCLIA [id number] [place] [address] [place] Methemoglobin (Bld) [Mass fraction] 1.3 % Normal 0.0-1.5 [facility] Comment on above: Order Comment: Speci men Type: ARTERIAL BLOOD SPECIMENOrdering Facility: [facility] Address: [address] Performed By: #### A LLBG ####[facility] LABCLIA [id number] [place] [address] [place] Oxygen (Bld) [Partial pressure] 334 mm Hg High 85-95 [facility] Comment on above: Order Comment: Speci men Type: ARTERIAL BLOOD SPECIMENOrdering Facility: [facility] Address: [address] Performed By: #### A LLBG ####[facility] LABCLIA [id number] [place] [address] [place] Oxygen adjusted to patient's actual temperature (Bld) [Partial pressure] 334 mmHg High 85-95 [facility] Comment on above: Order Comment: Speci men Type: ARTERIAL BLOOD SPECIMENOrdering Facility: [facility] Address: [address] Performed By: #### A LLBG ####[facility] LABCLIA [id number] [place] [address] [place] Oxyhemoglobin (BldA) [Mass fraction] 98 % Normal 95-98 [facility] Comment on above: Order Comment: Speci men Type: ARTERIAL BLOOD SPECIMENOrdering Facility: [facility] Address: [address] Performed By: #### A LLBG ####[facility] LABCLIA [id number] [place] [address] [place] pH (Bld) 7.41 [pH] Normal 7.35-7.45 [facility] Comment on above: Order Comment: Speci men Type: ARTERIAL BLOOD SPECIMENOrdering Facility: [facility] Address: [address] Performed By: #### A LLBG ####[facility] LABCLIA [id number] [place] [address] [place] pH adjusted to patient's actual temperature (Bld) 7.41 Normal 7.35-7.45 [facility] Comment on above: Order Comment: Speci men Type: ARTERIAL BLOOD SPECIMENOrdering Facility: [facility] Address: [address] [place] [address] Performed By: #### A LLBG ####[facility] LABIA [id number] [place] [address] [place] Sodium [Moles/Vol] 136 mmol/L Normal 136-144 [facility] Comment on above: Order Comment: Speci men Type: ARTERIAL BLOOD SPECIMENOrdering Facility: [facility] Address: [address] [place] [address] Performed By: #### A LLBG ####[facility] LABIA [id number] [place] [address] [place] ARTERIAL BLOOD GASES WITH IO NIZED MAGNESIUMon 12-04-2022 Base excess Calc (Bld) [Moles/Vol] 1 mmol/L Normal 0-2 [facility] Comment on above: Order Comment: Speci men Type: ARTERIAL BLOOD SPECIMENOrdering Facility: [facility] Address: [address] [place] [address] Performed By: #### A LLMG ####[facility] LABIA [id number] [place] [address] [place] Calcium.ionized (Bld) [Mass/Vol] 1.22 mmol/L Normal 1.08-1.30 [facility] Comment on above: Order Comment: Speci men Type: ARTERIAL BLOOD SPECIMENOrdering Facility: [facility] Address: [address] [place] [address] Performed By: #### A LLMG ####[facility] LABIA [id number] [address] [place] Calcium.ionized adjusted to pH 7.4 (BldA) [Moles/Vol] 1.23 mmol/L Normal 1.08-1.30 [facility] Comment on above: Order Comment: Speci men Type: ARTERIAL BLOOD SPECIMENOrdering Facility: [facility] Address: [address] [place] [address] Performed By: #### A LLMG ####[facility] LABCLIA [id number] [address] [place] Carboxyhemoglobin (BldA) [Mass fraction] 1.3 % Normal 0.0-2.0 [facility] Comment on above: Order Comment: Speci men Type: ARTERIAL BLOOD SPECIMENOrdering Facility: [facility] Address: [address] [place] [address] Result Comment: Carb oxyhemoglobin Reference Range for Smokers: 2.0-8.0% Performed By: #### A LLMG ####[facility] LABCLIA [id number] [address] [place] CO2 (Bld) [Partial pressure] 39 mm Hg Normal 36-46 [facility] Comment on above: Order Comment: Speci men Type: ARTERIAL BLOOD SPECIMENOrdering Facility: [facility] Address: [address] [place] [address] Performed By: #### A LLMG ####[facility] LABCLIA [id number] [place] [address] [place] CO2 [Moles/Vol] 26 mmol/L Normal 22-28 [facility] Comment on above: Order Comment: Speci men Type: ARTERIAL BLOOD SPECIMENOrdering Facility: [facility] Address: [address] [place] [address] Performed By: #### A LLMG ####[facility] LABCLIA [id number] [address] [place] CO2 adjusted to patient's actual temperature (Bld) [Partial pressure] 39 mmHg Normal 36-46 [facility] Comment on above: Order Comment: Speci men Type: ARTERIAL BLOOD SPECIMENOrdering Facility: [facility] Address: [address] Performed By: #### A LLMG ####[facility] LABCLIA [id number] [place] [address] [place] Glucose [Mass/Vol] 163 mg/dL High 60-105 [facility] Comment on above: Order Comment: Speci men Type: ARTERIAL BLOOD SPECIMENOrdering Facility: [facility] Address: [address] Performed By: #### A LLMG ####[facility] LABCLIA [id number] [place] [address] [place] HCO3 (Bld) [Moles/Vol] 25 mmol/L Normal 22-26 [facility] Comment on above: Order Comment: Speci men Type: ARTERIAL BLOOD SPECIMENOrdering Facility: [facility] Address: [address] Performed By: #### A LLMG ####[facility] LABCLIA [id number] [place] [address] [place] Hematocrit (Bld) [Volume fraction] 36.1 % Low 39.0-51.0 [facility] Comment on above: Order Comment: Speci men Type: ARTERIAL BLOOD SPECIMENOrdering Facility: [facility] Address: [address] Performed By: #### A LLMG ####[facility] LABCLIA [id number] [place] [address] [place] Hemoglobin (Bld) [Mass/Vol] 11.7 g/dL Low 13.0-17.0 [facility] Comment on above: Order Comment: Speci men Type: ARTERIAL BLOOD SPECIMENOrdering Facility: [facility] Address: [address] Performed By: #### A LLMG ####[facility] LABCLIA [id number] [place] [address] [place] Lactate [Moles/Vol] 2.2 mmol/L Normal 0.5-2.2 [facility] Comment on above: Order Comment: Speci men Type: ARTERIAL BLOOD SPECIMENOrdering Facility: [facility] Address: [address] [place] [address] Performed By: #### A LLMG ####[facility] LABCLIA [id number] [place] [address] [place] Magnesium [Moles/Vol] 0.66 mmol/L High 0.45-0.60 [facility] Comment on above: Order Comment: Speci men Type: ARTERIAL BLOOD SPECIMENOrdering Facility: [facility] Address: [address] [place] [address] Performed By: #### A LLMG ####[facility] LABIA [id number] [place] [address] [place] Methemoglobin (Bld) [Mass fraction] 1.5 % Normal 0.0-1.5 [facility] Comment on above: Order Comment: Speci men Type: ARTERIAL BLOOD SPECIMENOrdering Facility: [facility] Address: [address] [place] [address] Performed By: #### A LLMG ####[facility] LABIA [id number] [place] [address] [place] Oxygen (Bld) [Partial pressure] 166 mm Hg High 85-95 [facility] Comment on above: Order Comment: Speci men Type: ARTERIAL BLOOD SPECIMENOrdering Facility: [facility] Address: [address] [place] [address] Performed By: #### A LLMG ####[facility] LABIA [id number] [place] [address] [place] Oxygen adjusted to patient's actual temperature (Bld) [Partial pressure] 166 mmHg High 85-95 [facility] Comment on above: Order Comment: Speci men Type: ARTERIAL BLOOD SPECIMENOrdering Facility: [facility] Address: [address] [place] [address] Performed By: #### A LLMG ####[facility] LABIA [id number] [place] [address] [place] Oxyhemoglobin (BldA) [Mass fraction] 96 % Normal 95-98 [facility] Comment on above: Order Comment: Speci men Type: ARTERIAL BLOOD SPECIMENOrdering Facility: [facility] Address: [address] [place] [address] Performed By: #### A LLMG ####[facility] LABIA [id number] [place] [address] [place] pH (Bld) 7.42 [pH] Normal 7.35-7.45 [facility] Comment on above: Order Comment: Speci men Type: ARTERIAL BLOOD SPECIMENOrdering Facility: [facility] Address: [address] [place] [address] Performed By: #### A LLMG ####[facility] LABIA [id number] [address] [place] pH adjusted to patient's actual temperature (Bld) 7.42 Normal 7.35-7.45 [facility] Comment on above: Order Comment: Speci men Type: ARTERIAL BLOOD SPECIMENOrdering Facility: [facility] Address: [address] [place], [place] [address] Performed By: #### A LLMG ####[facility] LABIA [id number] [place] [address] [place] Potassium [Moles/Vol] 3.8 mmol/L Normal 3.5-5.0 [facility] Comment on above: Order Comment: Speci men Type: ARTERIAL BLOOD SPECIMENOrdering Facility: [facility] Address: [address] [place] [address] Performed By: #### A LLMG ####[facility] LABIA [id number] [address] [place] Sodium [Moles/Vol] 132 mmol/L Low 136-144 [facility] Comment on above: Order Comment: Speci men Type: ARTERIAL BLOOD SPECIMENOrdering Facility: [facility] Address: [address] Performed By: #### A LLMG ####[facility] LABIA [id number] [address] [place] Base excess Calc (Bld) [Moles/Vol] 1 mmol/L Normal 0-2 [facility] Comment on above: Order Comment: Speci men Type: ARTERIAL BLOOD SPECIMENOrdering Facility: [facility] Address: [address] [place], [place] [address] Performed By: #### A LLMG ####[facility] LABIA [id number] [address] [place] Calcium.ionized (Bld) [Mass/Vol] 1.22 mmol/L Normal 1.08-1.30 [facility] Comment on above: Order Comment: Speci men Type: ARTERIAL BLOOD SPECIMENOrdering Facility: [facility] Address: [address] [place], [place] [address] Performed By: #### A LLMG ####[facility] LABIA [id number] [place] [address] [place] Calcium.ionized adjusted to pH 7.4 (BldA) [Moles/Vol] 1.23 mmol/L Normal 1.08-1.30 [facility] Comment on above: Order Comment: Speci men Type: ARTERIAL BLOOD SPECIMENOrdering Facility: [facility] Address: [address] [place], [place] [address] Performed By: #### A LLMG ####[facility] LABCLIA [id number] [place] [address] [place] Carboxyhemoglobin (BldA) [Mass fraction] 1.2 % Normal 0.0-2.0 [facility] Comment on above: Order Comment: Speci men Type: ARTERIAL BLOOD SPECIMENOrdering Facility: [facility] Address: [address] [place] [address] Result Comment: Carb oxyhemoglobin Reference Range for Smokers: 2.0-8.0% Performed By: #### A LLMG ####[facility] LABCLIA [id number] [place] [address] [place] CO2 (Bld) [Partial pressure] 39 mm Hg Normal 36-46 [facility] Comment on above: Order Comment: Speci men Type: ARTERIAL BLOOD SPECIMENOrdering Facility: [facility] Address: [address] [place] [address] Performed By: #### A LLMG ####[facility] LABCLIA [id number] [place] [address] [place] CO2 [Moles/Vol] 26 mmol/L Normal 22-28 [facility] Comment on above: Order Comment: Speci men Type: ARTERIAL BLOOD SPECIMENOrdering Facility: [facility] Address: [address] [place] [address] Performed By: #### A LLMG ####[facility] LABCLIA [id number] [place] [address] [place] CO2 adjusted to patient's actual temperature (Bld) [Partial pressure] 39 mmHg Normal 36-46 [facility] Comment on above: Order Comment: Speci men Type: ARTERIAL BLOOD SPECIMENOrdering Facility: [facility] Address: [address] [place], [place] [address] Performed By: #### A LLMG ####[facility] LABCLIA [id number] [place] [address] [place] Glucose [Mass/Vol] 191 mg/dL High 60-105 [facility] Comment on above: Order Comment: Speci men Type: ARTERIAL BLOOD SPECIMENOrdering Facility: [facility] Address: [address] [place], [place] [address] Performed By: #### A LLMG ####[facility] LABCLIA [id number] [place] [address] [place] HCO3 (Bld) [Moles/Vol] 25 mmol/L Normal 22-26 [facility] Comment on above: Order Comment: Speci men Type: ARTERIAL BLOOD SPECIMENOrdering Facility: [facility] Address: [address] Performed By: #### A LLMG ####[facility] LABCLIA [id number] [place] [address] [place] Hematocrit (Bld) [Volume fraction] 31.8 % Low 39.0-51.0 [facility] Comment on above: Order Comment: Speci men Type: ARTERIAL BLOOD SPECIMENOrdering Facility: [facility] Address: [address] Performed By: #### A LLMG ####[facility] LABIA [id number] [place] [address] [place] Hemoglobin (Bld) [Mass/Vol] 10.3 g/dL Low 13.0-17.0 [facility] Comment on above: Order Comment: Speci men Type: ARTERIAL BLOOD SPECIMENOrdering Facility: [facility] Address: [address] Performed By: #### A LLMG ####[facility] LABCLIA [id number] [place] [address] [place] Lactate [Moles/Vol] 2.5 mmol/L High 0.5-2.2 [facility] Comment on above: Order Comment: Speci men Type: ARTERIAL BLOOD SPECIMENOrdering Facility: [facility] Address: [address] Performed By: #### A LLMG ####[facility] LABCLIA [id number] [place] [address] [place] Magnesium [Moles/Vol] 0.74 mmol/L High 0.45-0.60 [facility] Comment on above: Order Comment: Speci men Type: ARTERIAL BLOOD SPECIMENOrdering Facility: [facility] Address: [address] [place], [place] [address] Performed By: #### A LLMG ####[facility] LABCLIA [id number] [place] [address] [place] Methemoglobin (Bld) [Mass fraction] 1.0 % Normal 0.0-1.5 [facility] Comment on above: Order Comment: Speci men Type: ARTERIAL BLOOD SPECIMENOrdering Facility: [facility] Address: [address] [place], [place] [address] Performed By: #### A LLMG ####[facility] LABIA [id number] [place] [address] [place] Oxygen (Bld) [Partial pressure] 421 mm Hg High 85-95 [facility] Comment on above: Order Comment: Speci men Type: ARTERIAL BLOOD SPECIMENOrdering Facility: [facility] Address: [address] [place] [address] Performed By: #### A LLMG ####[facility] LABCLIA [id number] [place] [address] [place] Oxygen adjusted to patient's actual temperature (Bld) [Partial pressure] 421 mmHg High 85-95 [facility] Comment on above: Order Comment: Speci men Type: ARTERIAL BLOOD SPECIMENOrdering Facility: [facility] Address: [address] [place] [address] Performed By: #### A LLMG ####[facility] LABCLIA [id number] [place] [address] [place] Oxyhemoglobin (BldA) [Mass fraction] 98 % Normal 95-98 [facility] Comment on above: Order Comment: Speci men Type: ARTERIAL BLOOD SPECIMENOrdering Facility: [facility] Address: [address] Performed By: #### A LLMG ####[facility] LABIA [id number] [place] [address] [place] pH (Bld) 7.42 [pH] Normal 7.35-7.45 [facility] Comment on above: Order Comment: Speci men Type: ARTERIAL BLOOD SPECIMENOrdering Facility: [facility] Address: [address] [place] [address] Performed By: #### A LLMG ####[facility] LABIA [id number] [place] [address] [place] pH adjusted to patient's actual temperature (Bld) 7.42 Normal 7.35-7.45 [facility] Comment on above: Order Comment: Speci men Type: ARTERIAL BLOOD SPECIMENOrdering Facility: [facility] Address: [address] [place] [address] Performed By: #### A LLMG ####[facility] LABIA [id number] [place] [address] [place] Potassium [Moles/Vol] 3.8 mmol/L Normal 3.5-5.0 [facility] Comment on above: Order Comment: Speci men Type: ARTERIAL BLOOD SPECIMENOrdering Facility: [facility] Address: [address] [place], [place] [address] Performed By: #### A LLMG ####[facility] LABIA [id number] [place] [address] [place] Sodium [Moles/Vol] 131 mmol/L Low 136-144 [facility] Comment on above: Order Comment: Speci men Type: ARTERIAL BLOOD SPECIMENOrdering Facility: [facility] Address: [address] [place] [address] Performed By: #### A LLMG ####[facility] [id number] [address] [place] Base excess Calc (Bld) [Moles/Vol] 1 mmol/L Normal 0-2 [facility] Comment on above: Order Comment: Speci men Type: ARTERIAL BLOOD SPECIMENOrdering Facility: [facility] Address: [address] Performed By: #### A LLMG ####[facility] [id number] [place] [address] [place] Calcium.ionized (Bld) [Mass/Vol] 1.07 mmol/L Low 1.08-1.30 [facility] Comment on above: Order Comment: Speci men Type: ARTERIAL BLOOD SPECIMENOrdering Facility: [facility] Address: [address] Performed By: #### A LLMG ####[facility] [id number] [place] [address] [place] Calcium.ionized adjusted to pH 7.4 (BldA) [Moles/Vol] 1.07 mmol/L Low 1.08-1.30 [facility] Comment on above: Order Comment: Speci men Type: ARTERIAL BLOOD SPECIMENOrdering Facility: [facility] Address: [address] Performed By: #### A LLMG ####[facility] [id number] [place] [address] [place] Carboxyhemoglobin (BldA) [Mass fraction] 1.2 % Normal 0.0-2.0 [facility] Comment on above: Order Comment: Speci men Type: ARTERIAL BLOOD SPECIMENOrdering Facility: [facility] Address: [address] Result Comment: Carb oxyhemoglobin Reference Range for Smokers: 2.0-8.0% Performed By: #### A LLMG ####[facility] LABCLIA [id number] [place] [address] [place] CO2 (Bld) [Partial pressure] 42 mm Hg Normal 36-46 [facility] Comment on above: Order Comment: Speci men Type: ARTERIAL BLOOD SPECIMENOrdering Facility: [facility] Address: [address] Performed By: #### A LLMG ####[facility] LABCLIA [id number] [place] [address] [place] CO2 [Moles/Vol] 27 mmol/L Normal 22-28 [facility] Comment on above: Order Comment: Speci men Type: ARTERIAL BLOOD SPECIMENOrdering Facility: [facility] Address: [address] [place] [address] Performed By: #### A LLMG ####[facility] LABCLIA [id number] [place] [address] [place] CO2 adjusted to patient's actual temperature (Bld) [Partial pressure] 42 mmHg Normal 36-46 [facility] Comment on above: Order Comment: Speci men Type: ARTERIAL BLOOD SPECIMENOrdering Facility: [facility] Address: [address] [place] [address] Performed By: #### A LLMG ####[facility] LABCLIA [id number] [place] [address] [place] Glucose [Mass/Vol] 185 mg/dL High 60-105 [facility] Comment on above: Order Comment: Speci men Type: ARTERIAL BLOOD SPECIMENOrdering Facility: [facility] Address: [address] Performed By: #### A LLMG ####[facility] LABCLIA [id number] [place] [address] [place] HCO3 (Bld) [Moles/Vol] 26 mmol/L Normal 22-26 [facility] Comment on above: Order Comment: Speci men Type: ARTERIAL BLOOD SPECIMENOrdering Facility: [facility] Address: [address] Performed By: #### A LLMG ####[facility] LABIA [id number] [place] [address] [place] Hematocrit (Bld) [Volume fraction] 33.3 % Low 39.0-51.0 [facility] Comment on above: Order Comment: Speci men Type: ARTERIAL BLOOD SPECIMENOrdering Facility: [facility] Address: [address] Performed By: #### A LLMG ####[facility] LABIA [id number] [address] [place] Hemoglobin (Bld) [Mass/Vol] 10.8 g/dL Low 13.0-17.0 [facility] Comment on above: Order Comment: Speci men Type: ARTERIAL BLOOD SPECIMENOrdering Facility: [facility] Address: [address] Performed By: #### A LLMG ####[facility] LABIA [id number] [place] [address] [place] Lactate [Moles/Vol] 1.3 mmol/L Normal 0.5-2.2 [facility] Comment on above: Order Comment: Speci men Type: ARTERIAL BLOOD SPECIMENOrdering Facility: [facility] Address: [address] Performed By: #### A LLMG ####[facility] LABIA [id number] [place] [address] [place] Magnesium [Moles/Vol] 0.54 mmol/L Normal 0.45-0.60 [facility] Comment on above: Order Comment: Speci men Type: ARTERIAL BLOOD SPECIMENOrdering Facility: [facility] Address: [address] Performed By: #### A LLMG ####[facility] LABCLIA [id number] [address] [place] Methemoglobin (Bld) [Mass fraction] 1.4 % Normal 0.0-1.5 [facility] Comment on above: Order Comment: Speci men Type: ARTERIAL BLOOD SPECIMENOrdering Facility: [facility] Address: [address] [place] [address] Performed By: #### A LLMG ####[facility] LABCLIA [id number] [place] [address] [place] Oxygen (Bld) [Partial pressure] 267 mm Hg High 85-95 [facility] Comment on above: Order Comment: Speci men Type: ARTERIAL BLOOD SPECIMENOrdering Facility: [facility] Address: [address] [place] [address] Performed By: #### A LLMG ####[facility] LABCLIA [id number] [place] [address] [place] Oxygen adjusted to patient's actual temperature (Bld) [Partial pressure] 267 mmHg High 85-95 [facility] Comment on above: Order Comment: Speci men Type: ARTERIAL BLOOD SPECIMENOrdering Facility: [facility] Address: [address] [place] [address] Performed By: #### A LLMG ####[facility] LABCLIA [id number] [place] [address] [place] Oxyhemoglobin (BldA) [Mass fraction] 97 % Normal 95-98 [facility] Comment on above: Order Comment: Speci men Type: ARTERIAL BLOOD SPECIMENOrdering Facility: [facility] Address: [address] [place] [address] Performed By: #### A LLMG ####[facility] LABIA [id number] [place] [address] [place] pH (Bld) 7.41 [pH] Normal 7.35-7.45 [facility] Comment on above: Order Comment: Speci men Type: ARTERIAL BLOOD SPECIMENOrdering Facility: [facility] Address: [address] [place] [address] Performed By: #### A LLMG ####[facility] LABIA [id number] [place] [address] [place] pH adjusted to patient's actual temperature (Bld) 7.41 Normal 7.35-7.45 [facility] Comment on above: Order Comment: Speci men Type: ARTERIAL BLOOD SPECIMENOrdering Facility: [facility] Address: [address] [place] [address] Performed By: #### A LLMG ####[facility] [id number] [place] [address] [place] Potassium [Moles/Vol] 4.0 mmol/L Normal 3.5-5.0 [facility] Comment on above: Order Comment: Speci men Type: ARTERIAL BLOOD SPECIMENOrdering Facility: [facility] Address: [address] [place] [address] Performed By: #### A LLMG ####[facility] LABIA [id number] [place] [address] [place] Sodium [Moles/Vol] 134 mmol/L Low 136-144 [facility] Comment on above: Order Comment: Speci men Type: ARTERIAL BLOOD SPECIMENOrdering Facility: [facility] Address: [address] [place] [address] Performed By: #### A LLMG ####[facility] LABIA [id number] [place] [address] [place] Base excess Calc (Bld) [Moles/Vol] 2 mmol/L Normal 0-2 [facility] Comment on above: Order Comment: Speci men Type: ARTERIAL BLOOD SPECIMENOrdering Facility: [facility] Address: [address] [place] [address] Performed By: #### A LLMG ####[facility] LABIA [id number] [place] [address] [place] Calcium.ionized (Bld) [Mass/Vol] 1.19 mmol/L Normal 1.08-1.30 [facility] Comment on above: Order Comment: Speci men Type: ARTERIAL BLOOD SPECIMENOrdering Facility: [facility] Address: [address] Performed By: #### A LLMG ####[facility] [id number] [place] [address] [place] Calcium.ionized adjusted to pH 7.4 (BldA) [Moles/Vol] 1.22 mmol/L Normal 1.08-1.30 [facility] Comment on above: Order Comment: Speci men Type: ARTERIAL BLOOD SPECIMENOrdering Facility: [facility] Address: [address] [place], [place] [address] Performed By: #### A LLMG ####[facility] [id number] [address] [place] Carboxyhemoglobin (BldA) [Mass fraction] 0.7 % Normal 0.0-2.0 [facility] Comment on above: Order Comment: Speci men Type: ARTERIAL BLOOD SPECIMENOrdering Facility: [facility] Address: [address] [place], [place] [address] Result Comment: Carb oxyhemoglobin Reference Range for Smokers: 2.0-8.0% Performed By: #### A LLMG ####[facility] [id number] [place] [address] [place] CO2 (Bld) [Partial pressure] 38 mm Hg Normal 36-46 [facility] Comment on above: Order Comment: Speci men Type: ARTERIAL BLOOD SPECIMENOrdering Facility: [facility] Address: [address] [place] [address] Performed By: #### A LLMG ####[facility] LABCLIA [id number] [place] [address] [place] CO2 [Moles/Vol] 27 mmol/L Normal 22-28 [facility] Comment on above: Order Comment: Speci men Type: ARTERIAL BLOOD SPECIMENOrdering Facility: [facility] Address: [address] [place] [address] Performed By: #### A LLMG ####[facility] LABCLIA [id number] [place] [address] [place] CO2 adjusted to patient's actual temperature (Bld) [Partial pressure] 38 mmHg Normal 36-46 [facility] Comment on above: Order Comment: Speci men Type: ARTERIAL BLOOD SPECIMENOrdering Facility: [facility] Address: [address] [place] [address] Performed By: #### A LLMG ####[facility] LABCLIA [id number] [place] [address] [place] Glucose [Mass/Vol] 125 mg/dL High 60-105 [facility] Comment on above: Order Comment: Speci men Type: ARTERIAL BLOOD SPECIMENOrdering Facility: [facility] Address: [address] [place], [place] [address] Performed By: #### A LLMG ####[facility] LABCLIA [id number] [place] [address] [place] HCO3 (Bld) [Moles/Vol] 25 mmol/L Normal 22-26 [facility] Comment on above: Order Comment: Speci men Type: ARTERIAL BLOOD SPECIMENOrdering Facility: [facility] Address: [address] [place] [address] Performed By: #### A LLMG ####[facility] LABCLIA [id number] [place] [address] [place] Hematocrit (Bld) [Volume fraction] 41.2 % Normal 39.0-51.0 [facility] Comment on above: Order Comment: Speci men Type: ARTERIAL BLOOD SPECIMENOrdering Facility: [facility] Address: [address] Performed By: #### A LLMG ####[facility] LABIA [id number] [address] [place] Hemoglobin (Bld) [Mass/Vol] 13.4 g/dL Normal 13.0-17.0 [facility] Comment on above: Order Comment: Speci men Type: ARTERIAL BLOOD SPECIMENOrdering Facility: [facility] Address: [address] Performed By: #### A LLMG ####[facility] LABIA [id number] [place] [address] [place] Lactate [Moles/Vol] 1.0 mmol/L Normal 0.5-2.2 [facility] Comment on above: Order Comment: Speci men Type: ARTERIAL BLOOD SPECIMENOrdering Facility: [facility] Address: [address] Performed By: #### A LLMG ####[facility] LABIA [id number] [place] [address] [place] Magnesium [Moles/Vol] 0.59 mmol/L Normal 0.45-0.60 [facility] Comment on above: Order Comment: Speci men Type: ARTERIAL BLOOD SPECIMENOrdering Facility: [facility] Address: [address] Performed By: #### A LLMG ####[facility] LABIA [id number] [place] [address] [place] Methemoglobin (Bld) [Mass fraction] 0.6 % Normal 0.0-1.5 [facility] Comment on above: Order Comment: Speci men Type: ARTERIAL BLOOD SPECIMENOrdering Facility: [facility] Address: [address] Performed By: #### A LLMG ####[facility] LABCLIA [id number] [place] [address] [place] Oxygen (Bld) [Partial pressure] 179 mm Hg High 85-95 [facility] Comment on above: Order Comment: Speci men Type: ARTERIAL BLOOD SPECIMENOrdering Facility: [facility] Address: [address] [place] [address] Performed By: #### A LLMG ####[facility] LABCLIA [id number] [place] [address] [place] Oxygen adjusted to patient's actual temperature (Bld) [Partial pressure] 179 mmHg High 85-95 [facility] Comment on above: Order Comment: Speci men Type: ARTERIAL BLOOD SPECIMENOrdering Facility: [facility] Address: [address] [place], [place] [address] Performed By: #### A LLMG ####[facility] LABCLIA [id number] [place] [address] [place] Oxyhemoglobin (BldA) [Mass fraction] 98 % Normal 95-98 [facility] Comment on above: Order Comment: Speci men Type: ARTERIAL BLOOD SPECIMENOrdering Facility: [facility] Address: [address] [place] [address] Performed By: #### A LLMG ####[facility] LABCLIA [id number] [place] [address] [place] pH (Bld) 7.44 [pH] Normal 7.35-7.45 [facility] Comment on above: Order Comment: Speci men Type: ARTERIAL BLOOD SPECIMENOrdering Facility: [facility] Address: [address] [place] [address] Performed By: #### A LLMG ####[facility] LABCLIA [id number] [place] [address] [place] pH adjusted to patient's actual temperature (Bld) 7.44 Normal 7.35-7.45 [facility] Comment on above: Order Comment: Speci men Type: ARTERIAL BLOOD SPECIMENOrdering Facility: [facility] Address: [address] [place], [place] [address] Performed By: #### A LLMG ####[facility] LABIA [id number] [place] [address] [place] Potassium [Moles/Vol] 4.1 mmol/L Normal 3.5-5.0 [facility] Comment on above: Order Comment: Speci men Type: ARTERIAL BLOOD SPECIMENOrdering Facility: [facility] Address: [address] [place], [place] [address] Performed By: #### A LLMG ####[facility] [id number] [place] [address] [place] Sodium [Moles/Vol] 137 mmol/L Normal 136-144 [facility] Comment on above: Order Comment: Speci men Type: ARTERIAL BLOOD SPECIMENOrdering Facility: [facility] Address: [address] [place] [address] Performed By: #### A LLMG ####[facility] [id number] [place] [address] [place] ECG COMPLETEon 12-04-2022 ECG COMPLETE Normal [facility] Fibrinogen PPP-mCncon 2022 Fibrinogen Coag (PPP) [Mass/Vol] 206 mg/dL Normal 200-400 [facility] Comment on above: Order Comment: Speci men Type: BLOOD SPECIMENOrdering Facility: [facility] Address: [address] [place] [address] Performed By: #### 3 255-7 ####[facility] LABIA [id number] [place] [address] [place] Gas + CO Pnl BldVon 12-05-19 23 CO2 [Moles/Vol] 28 mmol/L Normal 22-28 [facility] Comment on above: Order Comment: Speci men Type: VENOUS BLOOD SPECIMENOrdering Facility: [facility] Address: [address] Performed By: #### 2 [id number] ####[facility] LABCLIA [id number] [address] [place] Order Comment: Speci men Type: ARTERIAL BLOOD SPECIMENOrdering Facility: [facility] Address: [address] [address] Performed By: #### A LLBG ####[facility] LABCLIA [id number] [address] [place] Lactate [Moles/Vol] 1.0 mmol/L Normal 0.5-2.2 [facility] Comment on above: Order Comment: Speci men Type: VENOUS BLOOD SPECIMENOrdering Facility: [facility] Address: [address] Performed By: #### 2 4344-4 ####[facility] LABCLIA [id number] [address] Order Comment: Speci men Type: ARTERIAL BLOOD SPECIMENOrdering Facility: [facility] Address: [address] Performed By: #### A LLBG ####[facility] LABCLIA [id number] [place] [address] [place] Potassium [Moles/Vol] 4.1 mmol/L Normal 3.5-5.0 [facility] Comment on above: Order Comment: Speci men Type: VENOUS BLOOD SPECIMENOrdering Facility: [facility] Address: [address] Performed By: #### 2 4344-4 ####[facility] LABCLIA [id number] [address] [place] Order Comment: Speci men Type: ARTERIAL BLOOD SPECIMENOrdering Facility: [facility] Address: [address] [address] Performed By: #### A LLBG ####[facility] LABIA [id number] [place] [address] [place] Gas and Carbon monoxide pane l (BldV)on 12-04-2022 Base excess Calc (BldV) [Moles/Vol] 2 mmol/L Normal 0-2 [facility] Comment on above: Order Comment: Speci men Type: VENOUS BLOOD SPECIMENOrdering Facility: [facility] Address: [address] [address] Performed By: #### 2 4344-4 ####[facility] LABIA [id number] [place] [address] [place] Calcium.ionized (Bld) [Mass/Vol] 1.13 mmol/L Normal 1.08-1.30 [facility] Comment on above: Order Comment: Speci men Type: VENOUS BLOOD SPECIMENOrdering Facility: [facility] Address: [address] Performed By: #### 2 4344-4 ####[facility] LABIA [id number] [place] [address] [place] Calcium.ionized adjusted to pH 7.4 (BldA) [Moles/Vol] 1.11 mmol/L Normal 1.08-1.30 [facility] Comment on above: Order Comment: Speci men Type: VENOUS BLOOD SPECIMENOrdering Facility: [facility] Address: [address] Performed By: #### 2 4344-4 ####[facility] LABIA [id number] [place] [address] [place] Carboxyhemoglobin (BldV) [Mass fraction] 1.3 % Normal 0.0-2.0 [facility] Comment on above: Order Comment: Speci men Type: VENOUS BLOOD SPECIMENOrdering Facility: [facility] Address: [address] Result Comment: Carb oxyhemoglobin Reference Range for Smokers: 2.0-8.0% Performed By: #### 2 4344-4 ####[facility] LABCLIA [id number] [address] [place] CO2 (BldV) [Partial pressure] 49 mm[Hg] Normal 42-55 [facility] Comment on above: Order Comment: Speci men Type: VENOUS BLOOD SPECIMENOrdering Facility: [facility] Address: [address] Performed By: #### 2 4344-4 ####[facility] LABIA [id number] [address] [place] CO2 adjusted to patient's actual temperature (BldV) [Partial pressure] 49 mmHg Normal 42-55 [facility] Comment on above: Order Comment: Speci men Type: VENOUS BLOOD SPECIMENOrdering Facility: [facility] Address: [address] Performed By: #### 2 4344-4 ####[facility] LABIA [id number] [place] [address] [place] Glucose [Mass/Vol] 131 mg/dL High 60-105 [facility] Comment on above: Order Comment: Speci men Type: VENOUS BLOOD SPECIMENOrdering Facility: [facility] Address: [address] Performed By: #### 2 4344-4 ####[facility] LABIA [id number] [place] [address] [place] HCO3 (Bld) [Moles/Vol] 27 mmol/L Normal 24-28 [facility] Comment on above: Order Comment: Speci men Type: VENOUS BLOOD SPECIMENOrdering Facility: [facility] Address: [address] Performed By: #### 2 4344-4 ####[facility] LABCLIA [id number] [place] [address] [place] Hematocrit (Bld) [Volume fraction] 33.6 % Low 39.0-51.0 [facility] Comment on above: Order Comment: Speci men Type: VENOUS BLOOD SPECIMENOrdering Facility: [facility] Address: [address] [address] Performed By: #### 2 4344-4 ####[facility] LABIA [id number] [place] [address] [place] Hemoglobin (Bld) [Mass/Vol] 10.9 g/dL Low 13.0-17.0 [facility] Comment on above: Order Comment: Speci men Type: VENOUS BLOOD SPECIMENOrdering Facility: [facility] Address: [address] [address] Performed By: #### 2 4344-4 ####[facility] LABIA [id number] [address] [place] Methemoglobin (Bld) [Mass fraction] 0.7 % Normal 0.0-1.5 [facility] Comment on above: Order Comment: Speci men Type: VENOUS BLOOD SPECIMENOrdering Facility: [facility] Address: [address] [address] Performed By: #### 2 4344-4 ####[facility] LABIA [id number] [place] [address] [place] Oxygen (BldV) [Partial pressure] 65 mm[Hg] High 35-45 [facility] Comment on above: Order Comment: Speci men Type: VENOUS BLOOD SPECIMENOrdering Facility: [facility] Address: [address] [address] Performed By: #### 2 4344-4 ####[facility] LABIA [id number] [address] [id number] [address] [place] Oxygen adjusted to patient's actual temperature (BldV) [Partial pressure] 65 mmHg High 35-45 [facility] Comment on above: Order Comment: Speci men Type: VENOUS BLOOD SPECIMENOrdering Facility: [facility] Address: [address] [place] [address] Performed By: #### 2 4344-4 ####[facility] LABCLIA [id number] [place] [address] [place] Oxygen saturation in Venous blood 91 % High 60-85 [facility] Comment on above: Order Comment: Speci men Type: VENOUS BLOOD SPECIMENOrdering Facility: [facility] Address: [address] [place] [address] Performed By: #### 2 4344-4 ####[facility] LABCLIA [id number] [address] [place] Oxyhemoglobin (BldV) [Mass fraction] 89 % High 60-85 [facility] Comment on above: Order Comment: Speci men Type: VENOUS BLOOD SPECIMENOrdering Facility: [facility] Address: [address] [place], [place] [address] Performed By: #### 2 4344-4 ####[facility] LABCLIA [id number] [address] [place] pH (BldV) 7.36 [pH] Normal 7.32-7.42 [facility] Comment on above: Order Comment: Speci men Type: VENOUS BLOOD SPECIMENOrdering Facility: [facility] Address: [address] [place], [place] [address] Performed By: #### 2 4344-4 ####[facility] LABCLIA [id number] [place] [address] [place] pH adjusted to patient's actual temperature (BldV) 7.36 Normal 7.32-7.42 [facility] Comment on above: Order Comment: Speci men Type: VENOUS BLOOD SPECIMENOrdering Facility: [facility] Address: [address] [id number] Performed By: #### 2 4344-4 ####[facility] LABCLIA [id number] [place] [address] [place] Sodium [Moles/Vol] 137 mmol/L Normal 136-144 [facility] Comment on above: Order Comment: Speci men Type: VENOUS BLOOD SPECIMENOrdering Facility: [facility] Address: [address] Performed By: #### 2 4344-4 ####[facility] LABCLIA [id number] [place] [address] [place] INTRAOPERATIVE ECHO PREon INTRAOPERATIVE ECHO PRE Normal [facility] OPERATIVE NOon 12-04-2022 OPERATIVE NO Normal [facility] Platelets Auto (Bld) [#/Vol] on 12-04-2022 Platelets (Bld) [#/Vol] 97 10*3/uL Low 150-400 [facility] Comment on above: Order Comment: Speci men Type: BLOOD SPECIMENOrdering Facility: [facility] Address: [address] [address] Result Comment: No c lot detected. Performed By: #### 7 77-3 ####[facility] LABIA [id number] [place] [address] [place] STAPH AUREUS PCRon 3 S. aureus and MRSA panel TINO+probe (Nose) Normal Negative [facility] Comment on above: Order Comment: Speci men Type: SWAB OF INTERNAL NOSEOrdering Facility: [facility] Address: [address] Result Comment: Nega tive for Staphylococcus aureus by PCR.Negative for MRSA by PCR Performed By: #### S APCR ####[facility] LABCLIA [id number] [place] [address] [place] SURGICAL PATHOLOGYon 023 CASE REPORT Normal [facility] Comment on above: Order Comment: Speci men Type: TISSUE SPECIMENOrdering Facility: [facility] Address: [address] [place] [address] Result Comment: Surg ica Pathology Report Case: [id number] Provider: Brain Nieves MD Collected: 12/04/2022 12:28 PMOrdering Location: Admitting Received: 12/04/2022 03:23 PMPathologist: [place] Wilkinsonpecimen: AORTIC VALVE, Routine Path. 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 A ortic valve, excision:-Severe calcification and severe fibrosis (gross diagnosis only).CT/OLS Performed By: #### S ####[facility] LABCLIA [id number] [address] [facility] FINAL PERFORMING LAB Normal [facility] Comment on above: Order Comment: Speci men Type: TISSUE SPECIMENOrdering Facility: [facility] Address: [address] [place] [address] Result Comment: Diag nostic interpretation performed at [facility] [address] CLIA# [id number] Director: Herman Reed M.D. Performed By: #### S ####[facility] [id number] [place] [address] [place] GROSS DESCRIPTION A. AORTIC VALVE Normal [facility] Comment on above: Order Comment: Speci men Type: TISSUE SPECIMENOrdering Facility: [facility] Address: [address] [address] Result Comment: Rece ived in formalin labeled aortic valve are 3 semilunar valve cusps ranging in size from 2.8 to 3.2 cm along the free edge and 1.3 to 1.8 cm from free edge to base. Severe calcification and severe fibrosis are present. 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 Fenestrations, perforations or vegetations are not seen. No sections are submitted. The specimen is reviewed with Dr. Gordillo. Gross diagnosis only.Gross examination performed at [facility], [facility] [address]OLS December 07, 2022 11:51 AM Performed By: #### S ####[facility] [id number] [place] [address] [place] VENOUS BLOOD GASES WITH IONI ZED MAGNESIUMon 12-04-2022 Base excess Calc (BldV) [Moles/Vol] 1 mmol/L Normal 0-2 [facility] Comment on above: Order Comment: Speci men Type: VENOUS BLOOD SPECIMENOrdering Facility: [facility] Address: [address] [address] Performed By: #### V ALLMG ####[facility] [id number] [place] [address] [place] Calcium.ionized (Bld) [Mass/Vol] 1.14 mmol/L Normal 1.08-1.30 [facility] Comment on above: Order Comment: Speci men Type: VENOUS BLOOD SPECIMENOrdering Facility: [facility] Address: [address] [address] Performed By: #### V ALLMG ####[facility] [id number] [place] [address] [place] Calcium.ionized adjusted to pH 7.4 (BldA) [Moles/Vol] 1.14 mmol/L Normal 1.08-1.30 [facility] Comment on above: Order Comment: Speci men Type: VENOUS BLOOD SPECIMENOrdering Facility: [facility] Address: [address] [address] Performed By: #### V ALLMG ####[facility] [id number] [place] [address] [place] Carboxyhemoglobin (BldV) [Mass fraction] 1.2 % Normal 0.0-2.0 [facility] Comment on above: Order Comment: Speci men Type: VENOUS BLOOD SPECIMENOrdering Facility: [facility] Address: [address] [place] [address] Result Comment: Carb oxyhemoglobin Reference Range for Smokers: 2.0-8.0% Performed By: #### V ALLMG ####[facility] [id number] [place] [address] [place] CO2 (BldV) [Partial pressure] 42 mm[Hg] Normal 42-55 [facility] Comment on above: Order Comment: Speci men Type: VENOUS BLOOD SPECIMENOrdering Facility: [facility] Address: [address] [address] Performed By: #### V ALLMG ####[facility] LABIA [id number] [place] [address] [place] CO2 [Moles/Vol] 27 mmol/L Normal 25-29 [facility] Comment on above: Order Comment: Speci men Type: VENOUS BLOOD SPECIMENOrdering Facility: [facility] Address: [address] [id number] Performed By: #### V ALLMG ####[facility] LABCLIA [id number] [place] [address] [place] CO2 adjusted to patient's actual temperature (BldV) [Partial pressure] 42 mmHg Normal 42-55 [facility] Comment on above: Order Comment: Speci men Type: VENOUS BLOOD SPECIMENOrdering Facility: [facility] Address: [address] Performed By: #### V ALLMG ####[facility] LABCLIA [id number] [place] [address] [place] Glucose [Mass/Vol] 127 mg/dL High 60-105 [facility] Comment on above: Order Comment: Speci men Type: VENOUS BLOOD SPECIMENOrdering Facility: [facility] Address: [address] Performed By: #### V ALLMG ####[facility] LABCLIA [id number] [place] [address] [place] HCO3 (Bld) [Moles/Vol] 26 mmol/L Normal 24-28 [facility] Comment on above: Order Comment: Speci men Type: VENOUS BLOOD SPECIMENOrdering Facility: [facility] Address: [address] [place] [address] Performed By: #### V ALLMG ####[facility] LABCLIA [id number] [place] [address] [place] Hematocrit (Bld) [Volume fraction] 38.5 % Low 39.0-51.0 [facility] Comment on above: Order Comment: Speci men Type: VENOUS BLOOD SPECIMENOrdering Facility: [facility] Address: [address] Performed By: #### V ALLMG ####[facility] LABCLIA [id number] [place] [address] [place] Hemoglobin (Bld) [Mass/Vol] 12.5 g/dL Low 13.0-17.0 [facility] Comment on above: Order Comment: Speci men Type: VENOUS BLOOD SPECIMENOrdering Facility: [facility] Address: [address] [place] [address] Performed By: #### V ALLMG ####[facility] LABCLIA [id number] [place] [address] [place] Lactate [Moles/Vol] 1.3 mmol/L Normal 0.5-2.2 [facility] Comment on above: Order Comment: Speci men Type: VENOUS BLOOD SPECIMENOrdering Facility: [facility] Address: [address] [place] [address] Performed By: #### V ALLMG ####[facility] LABCLIA [id number] [address] [place] Magnesium [Moles/Vol] 0.54 mmol/L Normal 0.45-0.60 [facility] Comment on above: Order Comment: Speci men Type: VENOUS BLOOD SPECIMENOrdering Facility: [facility] Address: [address] [place], [place] [address] Performed By: #### V ALLMG ####[facility] LABCLIA [id number] [address] [place] Methemoglobin (Bld) [Mass fraction] 1.2 % Normal 0.0-1.5 [facility] Comment on above: Order Comment: Speci men Type: VENOUS BLOOD SPECIMENOrdering Facility: [facility] Address: [address] [place], [place] [address] Performed By: #### V ALLMG ####[facility] LABCLIA [id number] [place] [address] [place] Oxygen (BldV) [Partial pressure] 55 mm[Hg] High 35-45 [facility] Comment on above: Order Comment: Speci men Type: VENOUS BLOOD SPECIMENOrdering Facility: [facility] Address: [address] Performed By: #### V ALLMG ####[facility] LABCLIA [id number] [place] [address] [place] Oxygen adjusted to patient's actual temperature (BldV) [Partial pressure] 55 mmHg High 35-45 [facility] Comment on above: Order Comment: Speci men Type: VENOUS BLOOD SPECIMENOrdering Facility: [facility] Address: [address] Performed By: #### V ALLMG ####[facility] LABCLIA [id number] [place] [address] [place] Oxygen saturation in Venous blood 87 % High 60-85 [facility] Comment on above: Order Comment: Speci men Type: VENOUS BLOOD SPECIMENOrdering Facility: [facility] Address: [address] [place] [address] Performed By: #### V ALLMG ####[facility] LABCLIA [id number] [place] [address] [place] Oxyhemoglobin (BldV) [Mass fraction] 85 % Normal 60-85 [facility] Comment on above: Order Comment: Speci men Type: VENOUS BLOOD SPECIMENOrdering Facility: [facility] Address: [address] [place], [place] [address] Performed By: #### V ALLMG ####[facility] LABCLIA [id number] [place] [address] [place] pH (BldV) 7.40 [pH] Normal 7.32-7.42 [facility] Comment on above: Order Comment: Speci men Type: VENOUS BLOOD SPECIMENOrdering Facility: [facility] Address: [address] [place] [address] Performed By: #### V ALLMG ####[facility] LABCLIA [id number] [address] [id number] [address] [place] pH adjusted to patient's actual temperature (BldV) 7.40 Normal 7.32-7.42 [facility] Comment on above: Order Comment: Speci men Type: VENOUS BLOOD SPECIMENOrdering Facility: [facility] Address: [address] [place] [address] Performed By: #### V ALLMG ####[facility] LABCLIA [id number] [place] [address] [place] Potassium [Moles/Vol] 3.9 mmol/L Normal 3.5-5.0 [facility] Comment on above: Order Comment: Speci men Type: VENOUS BLOOD SPECIMENOrdering Facility: [facility] Address: [address] [place] [address] Performed By: #### V ALLMG ####[facility] LABCLIA [id number] [place] [address] [place] Sodium [Moles/Vol] 135 mmol/L Low 136-144 [facility] Comment on above: Order Comment: Speci men Type: VENOUS BLOOD SPECIMENOrdering Facility: [facility] Address: [address] [place], [place] [address] Performed By: #### V ALLMG ####[facility] LABCLIA [id number] [place] [address] [place] XR CHEST 1V FRONTAL PORTon 0 12-04-2022 XR CHEST 1V FRONTAL PORT Normal [facility] CNOVon 12-03-2022 CNOV Normal [facility] HISTORY PHYSICALon 3 HISTORY PHYSICAL Normal [facility] - Microbiology an d Antimicrobial susceptibilityon 12-03-2022 S. aureus and MRSA panel TINO+probe (Nose) Negative Negative [facility] STAPH AUREUS PCRon 3 S. aureus and MRSA panel TINO+probe (Nose) Normal Negative [facility] Comment on above: Order Comment: Speci men Type: SWAB OF INTERNAL NOSEOrdering Facility: [facility] Address: [address] [place], [place] [address] Result Comment: Nega tive for Staphylococcus aureus by PCR.Negative for MRSA by PCR Performed By: #### S APCR ####[facility] LABCLIA [id number] [place] [address] [place] CARD CATH DIAGNOSTICon 12-02 CARD CATH DIAGNOSTIC Normal [facility] CBC W Auto Differential pane l (Bld)on 12-01-2022 Basophils (Bld) [#/Vol] 0.03 10*3/uL Normal <0.11 [facility] Comment on above: Order Comment: Speci men Type: BLOOD SPECIMENOrdering Facility: [facility] Address: [address] [place] [address] Performed By: #### 5 7021-8 ####[facility] LABIA [id number] [place] [address] [place] Basophils/100 WBC (Bld) 0.5 % Normal [facility] Comment on above: Order Comment: Speci men Type: BLOOD SPECIMENOrdering Facility: [facility] Address: [address] [place] [address] Performed By: #### 5 7021-8 ####[facility] [facility] [id number] [address] [place] Differential cell count method Nom (Bld) Auto Normal [facility] Comment on above: Order Comment: Speci men Type: BLOOD SPECIMENOrdering Facility: [facility] Address: [address] [address] Performed By: #### 5 7021-8 ####[facility] LABIA [id number] [place] [address] [place] Eosinophils (Bld) [#/Vol] 0.03 10*3/uL Normal <0.46 [facility] Comment on above: Order Comment: Speci men Type: BLOOD SPECIMENOrdering Facility: [facility] Address: [address] [address] Performed By: #### 5 7021-8 ####[facility] LABCLIA [id number] [place] [address] [place] Eosinophils/100 WBC (Bld) 0.5 % Normal [facility] Comment on above: Order Comment: Speci men Type: BLOOD SPECIMENOrdering Facility: [facility] Address: [address] [place], [place] [address] Performed By: #### 5 7021-8 ####[facility] LABCLIA [id number] [place] [address] [place] Erythrocyte distribution width (RBC) [Ratio] 14.2 % Normal 11.5-15.0 [facility] Comment on above: Order Comment: Speci men Type: BLOOD SPECIMENOrdering Facility: [facility] Address: [address] [place], [place] [address] Performed By: #### 5 7021-8 ####[facility] LABIA [id number] [address] [place] Hematocrit (Bld) [Volume fraction] 41.6 % Normal 39.0-51.0 [facility] Comment on above: Order Comment: Speci men Type: BLOOD SPECIMENOrdering Facility: [facility] Address: [address] [place], [place] [address] Performed By: #### 5 7021-8 ####[facility] LABCLIA [id number] [place] [address] [place] Hemoglobin (Bld) [Mass/Vol] 13.2 g/dL Normal 13.0-17.0 [facility] Comment on above: Order Comment: Speci men Type: BLOOD SPECIMENOrdering Facility: [facility] Address: [address] [place], [place] [address] Performed By: #### 5 7021-8 ####[facility] LABIA [id number] [place] [address] [place] Immature granulocytes (Bld) [#/Vol] 0.03 10*3/uL Normal <0.10 [facility] Comment on above: Order Comment: Speci men Type: BLOOD SPECIMENOrdering Facility: [facility] Address: [address] [place] [address] Performed By: #### 5 7021-8 ####[facility] LABCLIA [id number] [address] [place] Immature granulocytes/100 WBC (Bld) 0.5 % Normal [facility] Comment on above: Order Comment: Speci men Type: BLOOD SPECIMENOrdering Facility: [facility] Address: [address] [place] [address] Performed By: #### 5 7021-8 ####[facility] LABCLIA [id number] [place] [address] [place] Lymphocytes (Bld) [#/Vol] 0.92 10*3/uL Low 1.00-4.00 [facility] Comment on above: Order Comment: Speci men Type: BLOOD SPECIMENOrdering Facility: [facility] Address: [address] [place], [place] [address] Performed By: #### 5 7021-8 ####[facility] LABCLIA [id number] [address] [place] Lymphocytes/100 WBC (Bld) 16.6 % Normal [facility] Comment on above: Order Comment: Speci men Type: BLOOD SPECIMENOrdering Facility: [facility] Address: [address] [place], [place] [address] Performed By: #### 5 7021-8 ####[facility] LABCLIA [id number] [place] [address] [place] MCH (RBC) [Entitic mass] 29.7 pg Normal 26.0-34.0 [facility] Comment on above: Order Comment: Speci men Type: BLOOD SPECIMENOrdering Facility: [facility] Address: [facility] [address] Performed By: #### 5 7021-8 ####[facility] LABCLIA [id number] [address] [place] [facility] MCHC (RBC) [Mass/Vol] 31.7 g/dL Normal 30.5-36.0 [facility] Comment on above: Order Comment: Speci men Type: BLOOD SPECIMENOrdering Facility: [facility] Address: [address] Performed By: #### 5 7021-8 ####[facility] LABCLIA [id number] [place] [address] [place] MCV (RBC) [Entitic vol] 93.7 fL Normal 80.0-100.0 [facility] Comment on above: Order Comment: Speci men Type: BLOOD SPECIMENOrdering Facility: [facility] Address: [address] Performed By: #### 5 7021-8 ####[facility] LABCLIA [id number] [place] [address] [place] Monocytes (Bld) [#/Vol] 0.51 10*3/uL Normal <0.87 [facility] Comment on above: Order Comment: Speci men Type: BLOOD SPECIMENOrdering Facility: [facility] Address: [address] Performed By: #### 5 7021-8 ####[facility] LABCLIA [id number] [address] [place] Monocytes/100 WBC (Bld) 9.2 % Normal [facility] Comment on above: Order Comment: Speci men Type: BLOOD SPECIMENOrdering Facility: [facility] Address: [address] Performed By: #### 5 7021-8 ####[facility] LABCLIA [id number] [place] [address] [place] Neutrophils (Bld) [#/Vol] 4.03 10*3/uL Normal 1.45-7.50 [facility] Comment on above: Order Comment: Speci men Type: BLOOD SPECIMENOrdering Facility: [facility] Address: [address] [place] [address] Performed By: #### 5 7021-8 ####[facility] LABCLIA [id number] [place] [address] [place] Neutrophils/100 WBC (Bld) 72.7 % Normal [facility] Comment on above: Order Comment: Speci men Type: BLOOD SPECIMENOrdering Facility: [facility] Address: [address] [place] [address] Performed By: #### 5 7021-8 ####[facility] LABIA [id number] [place] [address] [place] Nucleated RBC (Bld) [#/Vol] 10*3/uL Normal <0.01 [facility] Comment on above: Order Comment: Speci men Type: BLOOD SPECIMENOrdering Facility: [facility] Address: [address] [place] [address] Performed By: #### 5 7021-8 ####[facility] LABIA [id number] [place] [address] [place] Nucleated RBC/100 WBC (Bld) [Ratio] 0.0 /100 WBC Normal [facility] Comment on above: Order Comment: Speci men Type: BLOOD SPECIMENOrdering Facility: [facility] Address: [address] [place] [address] Performed By: #### 5 7021-8 ####[facility] LABIA [id number] [place] [address] [place] Platelet mean volume (Bld) [Entitic vol] 9.2 fL Normal 9.0-12.7 [facility] Comment on above: Order Comment: Speci men Type: BLOOD SPECIMENOrdering Facility: [facility] Address: [address] [place] [address] Performed By: #### 5 7021-8 ####[facility] LABIA [id number] [place] [address] [place] Platelets (Bld) [#/Vol] 165 10*3/uL Normal 150-400 [facility] Comment on above: Order Comment: Speci men Type: BLOOD SPECIMENOrdering Facility: [facility] Address: [address] Performed By: #### 5 7021-8 ####[facility] LABIA [id number] [place] [address] [place] RBC (Bld) [#/Vol] 4.44 10*6/uL Normal 4.20-6.00 [facility] Comment on above: Order Comment: Speci men Type: BLOOD SPECIMENOrdering Facility: [facility] Address: [address] [place], [place] [address] Performed By: #### 5 7021-8 ####[facility] LABIA [id number] [place] [address] [place] WBC (Bld) [#/Vol] 5.55 10*3/uL Normal 3.70-11.00 [facility] Comment on above: Order Comment: Speci men Type: BLOOD SPECIMENOrdering Facility: [facility] Address: [address] [place] [address] Performed By: #### 5 7021-8 ####[facility] LABIA [id number] [place] [address] [place] CNNURSEon 12-01-2022 CNNURSE Normal [facility] CNPNon 12-01-2022 CNPN Normal [facility] CREATININE, BLOOD (POC)on Creatinine [Mass/Vol] 1.20 mg/dL 0.7 - 1.4 mg/dL [facility] eGFR (POCT) [facility] CTA CHEST (GATED) W IVCONon 12-01-2022 CTA CHEST (GATED) W IVCON Normal [facility] Comprehensive metabolic 2000 panelon 12-01-2022 Albumin [Mass/Vol] 4.4 g/dL Normal 3.9-4.9 [facility] Comment on above: Order Comment: Speci men Type: BLOOD SPECIMENOrdering Facility: [facility] Address: [address] [address] Performed By: #### 2 4323-8, 2532-0, 59180-7 ####[facility] LABCLIA [id number] [place] [address] [place] ALP [Catalytic activity/Vol] 97 U/L Normal 38-113 [facility] Comment on above: Order Comment: Speci men Type: BLOOD SPECIMENOrdering Facility: [facility] Address: [address] [address] Performed By: #### 2 4323-8, 2532-0, 29104-7 ####[facility] LABIA [id number] [place] [address] [place] ALT [Catalytic activity/Vol] 16 U/L Normal 10-54 [facility] Comment on above: Order Comment: Speci men Type: BLOOD SPECIMENOrdering Facility: [facility] Address: [address] [place], [place] [address] Performed By: #### 2 4323-8, 2532-0, 41881-5 ####[facility] LABIA [id number] [place] [address] [place] Anion gap [Moles/Vol] 13 mmol/L Normal 9-18 [facility] Comment on above: Order Comment: Speci men Type: BLOOD SPECIMENOrdering Facility: [facility] Address: [address] [address] Performed By: #### 2 4323-8, 2532-0, 26767-0 ####[facility] LABCLIA [id number] [place] [address] [place] AST [Catalytic activity/Vol] 19 U/L Normal 14-40 [facility] Comment on above: Order Comment: Speci men Type: BLOOD SPECIMENOrdering Facility: [facility] Address: [address] Performed By: #### 2 4323-8, 2531-0, 70504-7 ####[facility] LABCLIA [id number] [place] [address] [place] Bilirubin [Mass/Vol] 0.5 mg/dL Normal 0.2-1.3 [facility] Comment on above: Order Comment: Speci men Type: BLOOD SPECIMENOrdering Facility: [facility] Address: [address] [place], [place] [address] Performed By: #### 2 4323-8, 2531-0, 16071-0 ####[facility] LABCLIA [id number] [place] [address] [place] Calcium [Mass/Vol] 9.4 mg/dL Normal 8.5-10.2 [facility] Comment on above: Order Comment: Speci men Type: BLOOD SPECIMENOrdering Facility: [facility] Address: [address] [place], [place] [address] Performed By: #### 2 4323-8, 2531-0, 46623-1 ####[facility] LABCLIA [id number] [place] [address] [place] Chloride [Moles/Vol] 101 mmol/L Normal 97-105 [facility] Comment on above: Order Comment: Speci men Type: BLOOD SPECIMENOrdering Facility: [facility] Address: [address] Performed By: #### 2 4323-8, 2531-0, 20233-9 ####[facility] LABCLIA [id number] [place] [address] [place] CO2 [Moles/Vol] 26 mmol/L Normal 22-30 [facility] Comment on above: Order Comment: Speci men Type: BLOOD SPECIMENOrdering Facility: [facility] Address: [address] [place] [address] Performed By: #### 2 4323-8, 2532-0, 03356-5 ####[facility] LABIA [id number] [place] [address] [place] Creatinine [Mass/Vol] 1.16 mg/dL Normal 0.73-1.22 [facility] Comment on above: Order Comment: Speci men Type: BLOOD SPECIMENOrdering Facility: [facility] Address: [address] [place] [address] Performed By: #### 2 4323-8, 2532-0, 37672-7 ####[facility] [id number] [place] [address] [place] ESTIMATED GLOMERULAR FILTRATION RATE 62 mL/min/1.73m??? Normal >=60 [facility] Comment on above: Order Comment: Speci men Type: BLOOD SPECIMENOrdering Facility: [facility] Address: [address] [place] [address] Result Comment: Emely mated Glomerular Filtration Rate (eGFR) is calculated using the 2020 CKD-EPI creatinine equation. This equation utilizes serum creatinine, sex, and age as parameters. The creatinine assay has traceable calibration to isotope dilution-mass spectrometry. Refer to KDIGO guidelines for clinical interpretation. In patients with unstable renal function, e.g. those with acute kidney injury, the eGFR may not accurately reflect actual GFR. Performed By: #### 2 4323-8, 2532-0, 12295-9 ####[facility] LABIA [id number] [place] [address] [place] Glucose [Mass/Vol] 99 mg/dL Normal 74-99 [facility] Comment on above: Order Comment: Renay huitron Type: BLOOD SPECIMENOrdering Facility: [facility] Address: [address] [place] [address] Result Comment: The [place] [employer] (ADA) provides guidance for cutoff values for fasting glucose and random glucose. The ADA defines fasting as no caloric intake for at least 8 hours. Fasting plasma glucose results between 100 to 125 mg/dL indicate increased risk for diabetes (prediabetes).Fasting plasma glucose results greater than or equal to 126 mg/dL meet the criteria for diagnosis of diabetes. In the absence of unequivocal hyperglycemia, results should be confirmed by repeat testing. In a patient with classic symptoms of hyperglycemia or hyperglycemic crisis, random plasma glucose results greater than or equal to 200 mg/dL meet the criteria for diagnosis of diabetes.Reference: Standards of Medical Care in Diabetes 2016, [place] [employer]. Diabetes Care. 2016.39(Suppl 1). Performed By: #### 2 4323-8, 2532-0, 13002-4 ####[facility] LABCLIA [id number] [place] [address] [place] Potassium [Moles/Vol] 4.3 mmol/L Normal 3.7-5.1 [facility] Comment on above: Order Comment: Renay huitron Type: BLOOD SPECIMENOrdering Facility: [facility] Address: [address] [place] [address] Performed By: #### 2 4323-8, 2532-0, 18193-9 ####[facility] LABCLIA [id number] [place] [address] [place] Protein [Mass/Vol] 6.5 g/dL Normal 6.3-8.0 [facility] Comment on above: Order Comment: Renay huitron Type: BLOOD SPECIMENOrdering Facility: [facility] Address: [address] [place] [address] Performed By: #### 2 4323-8, 2532-0, 88313-9 ####[facility] LABCLIA [id number] [place] [address] [place] Sodium [Moles/Vol] 140 mmol/L Normal 136-144 [facility] Comment on above: Order Comment: Speci men Type: BLOOD SPECIMENOrdering Facility: [facility] Address: [address] [place] [address] Performed By: #### 2 4323-8, 2532-0, 29192-0 ####[facility] LABCLIA [id number] [place] [address] [place] Urea nitrogen [Mass/Vol] 23 mg/dL Normal 9-24 [facility] Comment on above: Order Comment: Speci men Type: BLOOD SPECIMENOrdering Facility: [facility] Address: [address] [place] [address] Performed By: #### 2 4323-8, 2532-0, 42132-1 ####[facility] LABCLIA [id number] [place] [address] [place] LDH SerPl-cCncon 12-01-2022 LDH [Catalytic activity/Vol] 225 U/L Normal 135-225 [facility] Comment on above: Order Comment: Speci men Type: BLOOD SPECIMENOrdering Facility: [facility] Address: [address] [place] [address] Performed By: #### 2 4323-8, 2532-0, 57524-3 ####[facility] LABCLIA [id number] [place] [address] [place] NT-proBNP SerPl-mCncon 12-01 Natriuretic peptide.B prohormone N-Terminal [Mass/Vol] 179 pg/mL Normal <450 [facility] Comment on above: Order Comment: Speci men Type: BLOOD SPECIMENOrdering Facility: [facility] Address: [address] [place] [address] Performed By: #### 2 4323-8, 2532-0, 26886-5 ####[facility] LABCLIA [id number] [address] [place] PT panel Coag (PPP)on 2022 INR Coag (PPP) [Relative time] 0.9 {INR} Normal 0.9-1.3 [facility] Comment on above: Order Comment: Speci men Type: BLOOD SPECIMENOrdering Facility: [facility] Address: [address] [id number] Result Comment: Cat min K Antagonist (VKA) Therapeutic Range: INR 2 to 3 (Target INR of 2.5)Note: For patients treated with VKA drugs, such as warfarin, the [place] [employer] 2012 Guideline recommends a therapeutic INR range of 2 to 3 (target INR of 2.5). This recommendation includes high-risk patients with antiphospholipid syndrome with previous arterial or venous thromboembolism, current-generation mechanical or bioprosthetic aortic heart valve replacement.Note: Patients with mechanical aortic valve replacement and additional risk factors for thromboembolic events (atrial fibrillation, previous thromboembolism, LV dysfunction, hypercoagulable conditions) or an older generation mechanical AVR (i.e., ball in-Cage) or any mechanical MVR should have a INR therapeutic range of 2.5 to 3.5 (target INR of 3).Ad GH, et al. Chest 2012, 141:7S-47SNishimura RA, et al. [facility] 2017, 70: 252-289 Performed By: #### 3 4528-0, 58597-9 ####[facility] LABIA [id number] [place] [address] [place] PT Coag (PPP) [Time] 9.8 s Normal 9.7-13.0 [facility] Comment on above: Order Comment: Speci men Type: BLOOD SPECIMENOrdering Facility: [facility] Address: [place] [address] Performed By: #### 3 4528-0, 97432-0 ####[facility] LABCLIA [id number] [place] [address] [facility] [place] TYPE AND SCREEN,30 DAYon ABO O Normal [facility] Comment on above: Order Comment: Speci men Type: BLOOD SPECIMENOrdering Facility: [facility] Address: [address] [address] Performed By: #### T SCR30 ####[facility] BLOOD BANKCLIA [id number] [place] [address] [place] HISTORICAL AB SCR STATUS Negative Normal [facility] Comment on above: Order Comment: Speci men Type: BLOOD SPECIMENOrdering Facility: [facility] Address: [address] [address] Performed By: #### T SCR30 ####[facility] BLOOD BANKIA [id number] [place] [address] [place] Rh Nom (Bld) Positive Normal [facility] Comment on above: Order Comment: Speci men Type: BLOOD SPECIMENOrdering Facility: [facility] Address: [address] [place] [address] Performed By: #### T SCR30 ####[facility] BLOOD BANKIA [id number] [place] [address] [place] URINALYSIS, DIPSTICK ONLYon 12-01-2022 Bilirubin Ql (U) Negative Normal Negative [facility] Comment on above: Order Comment: Speci men Type: URINE SPECIMENOrdering Facility: [facility] Address: [address] [place] [address] Performed By: #### U A ####[facility] LABCLIA [id number] [place] [address] [place] Clarity (Unsp spec) Clear Normal Clear [facility] Comment on above: Order Comment: Speci men Type: URINE SPECIMENOrdering Facility: [facility] Address: [address] [place] [address] Performed By: #### U A ####[facility] LABCLIA [id number] [place] [address] [place] Color (U) Colorless Normal Yellow [facility] Comment on above: Order Comment: Speci men Type: URINE SPECIMENOrdering Facility: [facility] Address: [address] [address] Performed By: #### U A ####[facility] LABCLIA [id number] [address] Glucose Test strip (U) [Mass/Vol] Negative Normal Trace, Negative [facility] Comment on above: Order Comment: Speci men Type: URINE SPECIMENOrdering Facility: [facility] Address: [address] [address] Performed By: #### U A ####[facility] LABCLIA [id number] [address] Hemoglobin Ql (U) Negative Normal Negative, Trace Cl [facility] Comment on above: Order Comment: Speci men Type: URINE SPECIMENOrdering Facility: [facility] Address: [address] [address] Performed By: #### U A ####[facility] LABCLIA [id number] [address] Ketones Ql (U) Negative Normal Trace, Negative [facility] Comment on above: Order Comment: Speci men Type: URINE SPECIMENOrdering Facility: [facility] Address: [address] [address] Performed By: #### U A ####[facility] LABCLIA [id number] [address] STATES OF [facility] Leukocyte esterase Test strip Ql (U) Negative Normal Negative, 25 Lito/uL [facility] Comment on above: Order Comment: Speci men Type: URINE SPECIMENOrdering Facility: [facility] Address: [address] [address] Performed By: #### U A ####[facility] LABCLIA [id number] [place] [address] [place] Nitrite Ql (U) Negative Normal Negative [facility] Comment on above: Order Comment: Speci men Type: URINE SPECIMENOrdering Facility: [facility] Address: [address] [place] [address] Performed By: #### U A ####[facility] LABIA [id number] [place] [address] [place] pH (U) 7.0 [pH] Normal 5.0-8.0 [facility] Comment on above: Order Comment: Speci men Type: URINE SPECIMENOrdering Facility: [facility] Address: [address] [place] [address] Performed By: #### U A ####[facility] LABIA [id number] [address] [place] [facility] Protein (U) [Mass/Vol] Negative Normal Trace, Negative [facility] Comment on above: Order Comment: Speci men Type: URINE SPECIMENOrdering Facility: [facility] Address: [address] [place] [address] Performed By: #### U A ####[facility] LABIA [id number] [address] Specific gravity (U) [Rel density] 1.013 Normal 1.005-1.030 [facility] Comment on above: Order Comment: Speci men Type: URINE SPECIMENOrdering Facility: [facility] Address: [address] [place], [place] [address] Performed By: #### U A ####[facility] LABIA [id number] [address] [place] Urobilinogen Ql (U) Negative Normal Negative [facility] Comment on above: Order Comment: Speci men Type: URINE SPECIMENOrdering Facility: [facility] Address: [address] [place] [address] Performed By: #### U A ####[facility] LABCLIA [id number] [place] [id number] [place] US CAROTID ARTERIES LUIS ALFREDO VAS LABon 12-01-2022 US CAROTID ARTERIES LUIS ALFREDO VAS LAB Normal [facility] aPTT PPPon 12-01-2022 aPTT Coag (PPP) [Time] 26.9 s Normal 23.0-32.4 [facility] Comment on above: Order Comment: Speci men Type: BLOOD SPECIMENOrdering Facility: [facility] Address: [address] [place] [address] Performed By: #### 3 4528-0, 68256-8 ####[facility] LABCLIA [id number] [address] [place] CNPNon 11-23-2022 CNPN Normal [facility] ECHO TRANSESOPHAGEALon 10-19 [facility] LVEF ECHO TRANSESOPHAGEALon 10-19-2022 LV Ejection Fraction 55 % [facility] METHYLMALONIC ACID (MMA)on 0 12-31-2021 Methylmalonic Acid, Serum 198 nmol/L Normal 0-378 [facility] Comment on above: Performed By: #### M MA2 #### [facility] [address] [address] [address] Bryn Santo MR head/brain wo conon 12-30 MR head/brain wo con [place] [address] MRI Report Signed Patient: Jordi Franco MR#: [id number] : 1940 Acct:[id number] Age/Sex: 81 / M ADM Date: 12/30/21 Loc: [facility] Room: Type: [facility] CLI Attending Dr: Raghav Hubbard MD Copies to: Raghav Hubbard MD Ordering Provider: Raghav Hubbard MD Date of Service: 12/30/21 MR/MR head/brain wo con: R25.1 R26.9 MR head/brain wo con 12/30/2021 8:56 AM SIGN AND SYMPTOMS: Concussion, short-term memory loss, headaches, unsteady gait, tremors PROTOCOL: Multiplanar multisequence MR images of the brain were obtained without IV contrast COMPARISON: None. FINDINGS: Extra axial spaces: There is mild diffuse age-related cortical atrophy without evidence of focal atrophy. Hemorrhage: None. Ventricular system: Within normal limits. Basal cisterns: Within normal limits and not effaced. Cerebral parenchyma: Periventricular and subcortical white matter T2 and FLAIR hyperintense foci are noted consistent with chronic microvascular ischemic change. 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 Midline shift: None.. Cerebellum: Within normal limits. Brainstem: Within normal limits. OTHER: Calvarium: Normal marrow signal. Vascular system: Satisfactory flow voids within the anterior and posterior circulation. Visualized Paranasal sinuses: There is mucosal thickening in the left maxillary sinus. Visualized Orbits: Within normal limits. Visualized upper cervical spine: Within normal limits. Sella and skull base: Within normal limits. MR/MR head/brain wo con IMPRESSION: No acute intracranial pathology. 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 Impression dictated by: Dillon Flores M.D.12/30/2021 10:26 AM Dictation Location: [place] [address] Transcribed By: [facility] 12/30/21 1026 Dictated By: Dillon Flores II, MD 12/30/21 1023 Signed By: 12/30/21 1026 Normal [facility] TSHon 12-25-2021 TSH 1.025 uIU/mL Normal 0.358-3.740 [facility] Comment on above: Performed By: #### T SH #### [facility] [address] [place] [address] Dr. Bryn Santo VIT B12 AND FOLATEon 022 Cobalamin (Vitamin B12) [Mass/Vol] 1345.0 pg/mL Critically high 193.0-986.0 [facility] Comment on above: Performed By: #### B 12FOL #### [facility] [address] [address] [address] Bryn Santo FOLATE 21.70 ng/mL Normal 8.60-58.90 [facility] Comment on above: Performed By: #### B 12FOL #### [facility] [address] [address] chest wo conon 06-27-2021 CT chest wo con [facility] [place] [address] [place] [address] Scan Report Signed Patient: Jordi Franco MR#: [id number] : 1940 Acct:[id number] Age/Sex: 80 / M ADM Date: 06/27/21 Loc: ER Room: Type: [facility] ER Attending Dr: Ordering Provider: Kate King PA-C Date of Service: 06/27/21 CT/CT chest wo con: fall Copies to: Kate King PA-C CT chest withoutcontrast TECHNIQUE: Axial imaging with 2-D reconstruction. The CT exam was performed using one or more the following dose reduction techniques: Automated exposure control, adjustment of the MA and/or Kv according to patient size, or use of the iterative reconstruction technique. History: Fell today. LEFT rib pain. COMPARISON: 09/22/12 The thyroid gland is normal. Central airway is patent. Esophagus is normal course and caliber. Heart is not enlarged. No pericardial effusion is seen. Nonenlarged mediastinal lymph nodes identified. No hilar mass or adenopathy is seen. No thoracic aortic aneurysm is seen. No lung nodules identified. Calcified bilateral lung granulomas identified. Pericardial calcification incidentally seen. Calcified mediastinal and hilar lymph nodes identified. No infiltrate or congestion identified. No pleural effusion identified. No pneumothorax seen. No chest wall abnormality seen. The bony structures are intact. Images of the upper abdomen are noncontributory. CT/CT chest wo con IMPRESSION: No rib fracture. No acute cardiopulmonary disease. Similar benign remote granulomatous changes. Impression dictated by: Td Garcia M.D.06/27/2021 8:35 PM Dictation Location: [place] [address] Transcribed By: [facility] 06/27/212034 Dictated By: Td Garcia DO 06/27/212025 Signed By: 06/27/212034 Normal [facility] XR hip LT min 2V(w/wo pelvis )*on 06-27-2021 XR hip LT min 2V(w/wo pelvis)* [facility] [place] [address] [place] [address] XRay Report Signed Patient: Jordi Franco MR#: [id number] : 1940 Acct:[id number] Age/Sex: 80 / M ADM Date: 06/27/21 Loc: ER Room: Type: PRE ER Attending Dr: Ordering Provider: Kate King PA-C Date of Service: 06/27/21 XR/XR hip LT min 2V(w/wo pelvis)*: Fall Copies to: Kate King PA-C 2 views LEFT hip with single view pelvisplain film COMPARISON:None HISTORY:Fell today. The LEFT lateral hip pain. No fracture, dislocation or focal soft tissue abnormality seen. XR/XR hip LT min 2V(w/wo pelvis)* IMPRESSION:No acute findings. Impression dictated by: Td Garcia M.D.06/27/2021 7:40 PM Dictation Location: [place] [address] Transcribed By: [facility] 06/27/211939 Dictated By: Td Garcia DO 06/27/211939 Signed By: 06/27/211939 Normal [facility] NR MR L-SPINE WO/W CONTRASTo n 07-26-2019 NR MR L-SPINE WO/W CONTRAST Patient Name: JORDI FRANCO STUDY: MR L-SPINE WO/W CONTRAST; 07/26/2019 1:19 pm INDICATION: Other spondylosis with radiculopathy, lumbar region. COMPARISON: None. ACCESSION NUMBER(S): [id number] ORDERING CLINICIAN: MARY MOLINA TECHNIQUE: The lumbar spine was studied in the sagital, axial and coronal planes utiliing T1 and T2 weighted images. FINDINGS: The marrow signal and vertebral body height are normal. The conus and sacrum are normal. Images at each interspace reveal the following: L1/L2 Mild facet hypertrophy without canal or foraminal narrowing L2/L3 Mild facet hypertrophy without canal or foraminal narrowing L3/L4 Mild facet hypertrophy without canal or foraminal narrowing L4/L5 Status post discectomy with interbody spacer and fusion placement. Normal alignment without evidence of pseudoarthrosis. No residual canal stenosis. Bilateral foraminal narrowing without focal disc herniation L5/S1 Mild bulging disc and facet hypertrophy without canal or foraminal narrowing Following intravenous injection of 17 cc MultiHance,there is no abnormal enhancement. IMPRESSION: *Postoperative changes as described The examination was interpreted [facility] Electronically signed by: PAULINE PADILLA MD Normal [facility] NR MRI CERVICAL WOon 020 NR MRI CERVICAL WO Patient Name: JORDI FRANCO STUDY: MRI CERVICAL WO; 07/26/2019 1:19 pm INDICATION: Other spondylosis with radiculopathy, lumbar region. COMPARISON: None. ACCESSION NUMBER(S): [id number] ORDERING CLINICIAN: MARY MOLINA TECHNIQUE: Sagittal and axial T1, T2 and STIR imaging was performed within the cervical spine. . FINDINGS: The craniovertebral junction is normal. Marrow signal and vertebral body height are normal. The cord is normal in size and signal. There is loss of height and signal and intervertebral disc spaces throughout the cervical spine. There are associated small bulging discs, uncovertebral joint osteophytes and facet hypertrophy. There is no measurable canal stenosis, focal disc herniation, cord compression or nerve root compression. The soft tissues of the neck are unremarkable. IMPRESSION: Cervical spondylosis without canal or foraminal narrowing. THIS EXAMINATION [place]PRET[place] [facility] Electron[place] signed by: PAULINE PADILLA MD Normal [facility] BASIC METABOLIC PANELon 07-08 Anion gap [Moles/Vol] 11 mmol/L Normal 10 - 20 [facility] Comment on above: Performed By: #### B MP #### [address] [address] Calcium [Mass/Vol] 9.5 mg/dL Normal 8.6 - 10.3 [facility] Comment on above: Performed By: #### B MP #### [address] [address] Chloride [Moles/Vol] 102 mmol/L Normal 98 - 107 [facility] Comment on above: Performed By: #### B MP #### [address] [address] Creatinine [Mass/Vol] 1.08 mg/dL Normal 0.50 - 1.30 [facility] Comment on above: Performed By: #### B MP #### [address] [address] GFR- AM. >60 Normal >60 [facility] Comment on above: Result Comment: CALC ULATIONS OF ESTIMATED GFR ARE PERFORMED USING THE MDRD STUDY EQUATION FOR THE IDMS-TRACEABLE CREATININE METHODS. CLIN CHEM 2007;53:766-72 Performed By: #### B MP #### [address] [address] GFR-NON AM. >60 Normal >60 [facility] Comment on above: Performed By: #### B MP #### [address] [address] Glucose [Mass/Vol] 122 mg/dL High 74 - 99 [facility] Comment on above: Performed By: #### B MP #### [address] [address] HCO3 (Bld) [Moles/Vol] 31 mmol/L Normal 21 - 32 [facility] Comment on above: Performed By: #### B MP #### [address] [address] Potassium [Moles/Vol] 4.6 mmol/L Normal 3.5 - 5.3 [facility] Comment on above: Performed By: #### B MP #### [address] [address] Sodium [Moles/Vol] 139 mmol/L Normal 136 - 145 [facility] Comment on above: Performed By: #### B MP #### [address] [address] Urea nitrogen [Mass/Vol] 19 mg/dL Normal 6 - 23 [facility] Comment on above: Performed By: #### B MP #### [address] [address] HGB + HCTon 07-21-2019 Hematocrit (Bld) [Volume fraction] 45.4 % Normal 41.0 - 52.0 [facility] Comment on above: Performed By: #### H H #### [facility] [address] [place] [address] Hemoglobin (Bld) [Mass/Vol] 13.9 g/dL Normal 13.5 - 17.5 [facility] Comment on above: Performed By: #### H H #### [facility] [address] [place] [address] Vital Signs Date Time Vital Sign Value Performing Clinician Facility 11-04-2023 14:49-0400 Body height 176.[address] [facility] 11-04-2023 14:49-0400 Body mass index (BMI) [Ratio] 28.8 kg/m2 [facility] 11-04-2023 14:49-0400 Body temperature 98.4 [degF] [facility] 11-04-2023 14:49-0400 Body weight 89.[address] [facility] 11-04-2023 14:49-0400 Heart rate 62 /min [facility] 11-04-2023 14:49-0400 Respiratory rate 18 /min [facility] 11-04-2023 14:49-0400 SaO2% (BldA) [Mass fraction] 97 % [facility] 06-30-2023 13:35-0500 Body height 177.8 cm Clara Cobian Other [facility] Other 06-30-2023 13:35-0500 Body mass index (BMI) [Ratio] 28.75 kg/m2 Clara Cobian Other [facility] Other 06-30-2023 13:35-0500 Body temperature 97.5 [degF] Clara Cobian Other [facility] Other 06-30-2023 13:35-0500 Body weight 90.9 kg Clara Cobian Other [facility] Other 06-30-2023 13:35-0500 Diastolic blood pressure 74 mm[Hg] Clara Cobian Other [facility] Other 06-30-2023 13:35-0500 Respiratory rate 20 /min Clara Tomlinsonmond Other [facility] Other 06-30-2023 13:35-0500 SaO2% (BldA) [Mass fraction] 97 % Clara Tomlinsonmond Other [facility] Other 06-30-2023 13:35-0500 Systolic blood pressure 124 mm[Hg] Clara Cobian Other [facility] Other 05-03-2023 11:10-0500 Blood Pressure Location MP MICHELLE [facility] 05-03-2023 11:10-0500 Diastolic blood pressure 60 mm[Hg] MP MICHEL[facility] 05-03-2023 11:10-0500 Heart rate 82 /min MP MICHEL[facility] 05-03-2023 11:10-0500 Respiratory rate 16 /min MP MICHEL[facility] 05-03-2023 11:10-0500 SaO2% (BldA) [Mass fraction] 94 % MP MICHEL[facility] 05-03-2023 11:10-0500 Systolic blood pressure 130 mm[Hg] MP MICHEL[facility] 04-22-2023 14:20-0500 Body height 177.8 cm Lisa Archibald Other [facility] Other 04-22-2023 14:20-0500 Body mass index (BMI) [Ratio] 28.98 kg/m2 Lisa Archibald Other [facility] Other 04-22-2023 14:20-0500 Body temperature 98.4 [degF] Lisa Archibald Other [facility] Other 04-22-2023 14:20-0500 Body weight 91.63 kg Lisa Archibald Other [facility] Other 04-22-2023 14:20-0500 Diastolic blood pressure 73 mm[Hg] Lisa Archibald Other [facility] Other 04-22-2023 14:20-0500 Respiratory rate 18 /min Lisa Archibald Other [facility] Other 04-22-2023 14:20-0500 SaO2% (BldA) [Mass fraction] 97 % Lisa Archibald Other [facility] Other 04-22-2023 14:20-0500 Systolic blood pressure 136 mm[Hg] Lisa Archibald Other [facility] Other 04-11-2023 12:31-0500 Diastolic blood pressure 88 mm[Hg] [facility] 04-11-2023 12:31-0500 Heart rate 101 /min [facility] 04-11-2023 12:31-0500 Mean blood pressure 108 mm[Hg] [facility] 04-11-2023 12:31-0500 Respiratory rate 55 /min [facility] 04-11-2023 12:31-0500 SaO2% (BldA) [Mass fraction] 95 % [facility] 04-11-2023 12:31-0500 Systolic blood pressure 147 mm[Hg] [facility] 04-11-2023 12:15-0500 Hourly Rounding [facility] 04-11-2023 12:00-0500 Diastolic blood pressure 77 mm[Hg] [facility] 04-11-2023 12:00-0500 Heart rate 97 /min [facility] 04-11-2023 12:00-0500 Mean blood pressure 102 mm[Hg] [facility] 04-11-2023 12:00-0500 Respiratory rate 67 /min [facility] 04-11-2023 12:00-0500 SaO2% (BldA) [Mass fraction] 94 % [facility] 04-11-2023 12:00-0500 Systolic blood pressure 152 mm[Hg] [facility] 04-11-2023 11:00-0500 Diastolic blood pressure 86 mm[Hg] [facility] 04-11-2023 11:00-0500 Heart rate 93 /min [facility] 04-11-2023 11:00-0500 Mean blood pressure 107 mm[Hg] [facility] 04-11-2023 11:00-0500 Respiratory rate 13 /min [facility] 04-11-2023 11:00-0500 Systolic blood pressure 149 mm[Hg] [facility] 04-11-2023 10:15-0500 gluc 100 mg/dL [facility] 04-11-2023 10:15-0500 gluc [facility] 04-11-2023 09:46-0500 Body temperature 97.7 [degF] [facility] 04-11-2023 09:46-0500 Heart rate 104 /min [facility] 04-11-2023 09:46-0500 Respiratory rate 20 /min Jh Rosario [facility] 02-16-2023 11:25-0400 Blood Pressure Location IVONNE GRANT [facility] 02-16-2023 11:25-0400 Diastolic blood pressure 76 mm[Hg] IVONNE CHANTEL [facility] 02-16-2023 11:25-0400 Heart rate 68 /min IVONNE CHANTEL [facility] 02-16-2023 11:25-0400 Respiratory rate 16 /min IVONNE CHANTEL [facility] 02-16-2023 11:25-0400 Systolic blood pressure 134 mm[Hg] IVONNE CHANTEL [facility] 01-14-2023 13:10-0400 Body height 177.8 cm Barbara Warner MEDICAL DOCTOR MD/MEDICAL DIRECTOR.POISER, DNP Work Phone: [facility] 01-14-2023 13:10-0400 Body weight 90.27 kg Barbara Jaron MEDICAL DOCTOR MD/MEDICAL DIRECTOR.POISER, DNP Work Phone: [facility] 01-14-2023 13:10-0400 Diastolic blood pressure 74 mm[Hg] Barbara Jaron MEDICAL DOCTOR MD/MEDICAL DIRECTOR.POISER, DNP Work Phone: [facility] 01-14-2023 13:10-0400 Heart rate 95 /min Barbara [place] MEDICAL DOCTOR MD/MEDICAL DIRECTOR.POISER, DNP Work Phone: [facility] 01-14-2023 13:10-0400 Systolic blood pressure 120 mm[Hg] Barbara Jaron MEDICAL DOCTOR MD/MEDICAL DIRECTOR.POISER, DNP Work Phone: [facility] 12-16-2022 13:28-0400 Body height 177.8 cm Mary Jo Olvera MEDICAL DOCTOR MD/MEDICAL DIRECTOR.POISER Work Phone: [facility] 12-16-2022 13:28-0400 Body temperature 98.4 [degF] Mary Jo Olvera APRN.POISER Work Phone: [facility] 12-16-2022 13:28-0400 Body weight 87.82 kg Mary Jo Olvera MEDICAL DOCTOR MD/MEDICAL DIRECTOR.POISER Work Phone: [facility] 12-16-2022 13:28-0400 Diastolic blood pressure 72 mm[Hg] Mary Jo Olvera MEDICAL DOCTOR MD/MEDICAL DIRECTOR.POISER Work Phone: [facility] 12-16-2022 13:28-0400 Heart rate 76 /min Mary Jo Olvera APRN.POISER Work Phone: [facility] 12-16-2022 13:28-0400 SaO2% (BldA) [Mass fraction] 97 % Mary Jo Olvera MEDICAL DOCTOR MD/MEDICAL DIRECTOR.POISER Work Phone: [facility] 12-16-2022 13:28-0400 Systolic blood pressure 102 mm[Hg] Mary Jo Olvera MEDICAL DOCTOR MD/MEDICAL DIRECTOR.POISER Work Phone: [facility] 12-05-2022 07:56-0400 SaO2% (BldA) [Mass fraction] 98 % FLOYD SPAULDING [facility] Comment on above: Order Comment: Specimen Type: ARTERIAL B LOOD SPECIMENOrdering Facility: [facility] Address: [address] [place] [address] Performed By: #### A LLBG ####[facility] LABIA [id number] [address] [place] 12-05-2022 05:56-0400 SaO2% (BldA) [Mass fraction] 98 % FLOYD SPAULDING [facility] Comment on above: Order Comment: Specimen Type: ARTERIAL B LOOD SPECIMENOrdering Facility: [facility] Address: [address] [place] [address] Performed By: #### A LLBG ####[facility] LABIA [id number] [place] [id number] [facility] 12-05-2022 03:38-0400 SaO2% (BldA) [Mass fraction] 98 % FLOYD [facility] Comment on above: Order Comment: Specimen Type: ARTERIAL B LOOD SPECIMENOrdering Facility: [facility] Address: [address] [place] [address] Performed By: #### A LLBG ####[facility] LABCLIA [id number] [place] [id number] [facility] [place] 12-05-2022 01:36-0400 SaO2% (BldA) [Mass fraction] 98 % FLOYD [facility] Comment on above: Order Comment: Specimen Type: ARTERIAL B LOOD SPECIMENOrdering Facility: [facility] Address: [address] [place] [address] Performed By: #### A LLBG ####[facility] LABCLIA [id number] [place] [id number] [facility] 12-05-2022 00:36-0400 SaO2% (BldA) [Mass fraction] 97 % FLOYD [facility] Comment on above: Order Comment: Specimen Type: ARTERIAL B LOOD SPECIMENOrdering Facility: [facility] Address: [address] [place] [address] Performed By: #### A LLBG ####[facility] LABCLIA [id number] [place] [id number] [facility] 12-04-2022 22:10-0400 SaO2% (BldA) [Mass fraction] 99 % FLOYD [facility] Comment on above: Order Comment: Specimen Type: ARTERIAL B LOOD SPECIMENOrdering Facility: [facility] Address: [address] [place] [address] Performed By: #### A LLBG ####[facility] LABCLIA [id number] [place] [id number] [facility] 12-04-2022 20:53-0400 SaO2% (BldA) [Mass fraction] 99 % FLOYD [facility] Comment on above: Order Comment: Specimen Type: ARTERIAL B LOOD SPECIMENOrdering Facility: [facility] Address: [address] [place] [address] Performed By: #### A LLBG ####[facility] LABCLIA [id number] [address] 12-04-2022 18:29-0400 SaO2% (BldA) [Mass fraction] 99 % FLOYD [facility] Comment on above: Order Comment: Specimen Type: ARTERIAL B LOOD SPECIMENOrdering Facility: [facility] Address: [address] [place] [address] Performed By: #### A LLBG ####[facility] LABCLIA [id number] [address] 12-04-2022 15:40-0400 SaO2% (BldA) [Mass fraction] 99 % [facility] Comment on above: Order Comment: Specimen Type: ARTERIAL B LOOD SPECIMENOrdering Facility: [facility] Address: [address] [place] [address] Performed By: #### A LLBG ####[facility] LABCLIA [id number] [address] 12-04-2022 14:19-0400 SaO2% (BldA) [Mass fraction] 99 % FLOYD [facility] Comment on above: Order Comment: Specimen Type: ARTERIAL B LOOD SPECIMENOrdering Facility: [facility] Address: [address] [place] [address] Performed By: #### A LLMG ####[facility] LABCLIA [id number] [place] [id number] [facility] 12-04-2022 13:44-0400 SaO2% (BldA) [Mass fraction] 100 % FLOYD SPAULDING [facility] Comment on above: Order Comment: Specimen Type: ARTERIAL B LOOD SPECIMENOrdering Facility: [facility] Address: [address] [place] [address] Performed By: #### A LLMG ####[facility] LABCLIA [id number] [place] [id number] [facility] 12-04-2022 12:37-0400 SaO2% (BldA) [Mass fraction] 100 % FLOYD SPAULDING [facility] Comment on above: Order Comment: Specimen Type: ARTERIAL B LOOD SPECIMENOrdering Facility: [facility] Address: [address] [place] [address] Performed By: #### A LLMG ####[facility] LABCLIA [id number] [address] OF [facility] 12-04-2022 12:00-0400 SaO2% (BldA) [Mass fraction] 100 % FLOYD SPAULDING [facility] Comment on above: Order Comment: Specimen Type: ARTERIAL B LOOD SPECIMENOrdering Facility: [facility] Address: [address] [place] [address] Performed By: #### A LLBG ####[facility] LABCLIA [id number] [address] [place] 12-04-2022 11:11-0400 SaO2% (BldA) [Mass fraction] 100 % FLOYD SPAULDING [facility] Comment on above: Order Comment: Specimen Type: ARTERIAL B LOOD SPECIMENOrdering Facility: [facility] Address: [address] [place] [address] Performed By: #### A LLBG ####[facility] LABCLIA [id number] [place] [id number] [place] 12-04-2022 08:59-0400 SaO2% (BldA) [Mass fraction] 99 % FLOYD [facility] Comment on above: Order Comment: Specimen Type: ARTERIAL B LOOD SPECIMENOrdering Facility: [facility] Address: [address] [place] [address] Performed By: #### A LLMG ####[facility] LABCLIA [id number] [facility] [id number] [place] [address] [place] 12-03-2022 10:04-0400 Body height 177.8 cm [facility] Work Phone: [facility] 12-03-2022 10:04-0400 Body temperature 99 [degF] [facility] Work Phone: [facility] 12-03-2022 10:04-0400 Body weight 91.63 kg [facility] Work Phone: [facility] 12-03-2022 10:04-0400 Diastolic blood pressure 71 mm[Hg] [facility] Work Phone: [facility] 12-03-2022 10:04-0400 Heart rate 69 /min [facility] Work Phone: [facility] 12-03-2022 10:04-0400 Respiratory rate 14 /min [facility] Work Phone: [facility] 12-03-2022 10:04-0400 SaO2% (BldA) [Mass fraction] 97 % [facility] Work Phone: [facility] 12-03-2022 10:04-0400 Systolic blood pressure 119 mm[Hg] [facility] Work Phone: [facility] 10-19-2022 15:15-0400 Diastolic blood pressure 60 mm[Hg] Savanna Zhang MD Work Phone: [facility] 10-19-2022 15:15-0400 Heart rate 60 /min Savanna Zhang MD Work Phone: [facility] 10-19-2022 15:15-0400 Respiratory rate 38 /min Savanna Zhang MD Work Phone: [facility] 10-19-2022 15:15-0400 SaO2% (BldA) [Mass fraction] 92 % Savanna Zhang MD Work Phone: [facility] 10-19-2022 15:15-0400 Systolic blood pressure 118 mm[Hg] Savanna Zhang MD Work Phone: [facility] 10-19-2022 12:15-0400 Body temperature 98.4 [degF] Savanna Zhang MD Work Phone: [facility] 10-05-2022 08:49-0400 Body height 177.8 cm Savanna Zhang MD Work Phone: [facility] 10-05-2022 08:49-0400 Body weight 93.08 kg Savanna Zhang MD Work Phone: [facility] 10-05-2022 08:49-0400 Diastolic blood pressure 62 mm[Hg] Savanna Zhang MD Work Phone: [facility] 10-05-2022 08:49-0400 Heart rate 62 /min Savanna Zhang MD Work Phone: [facility] 10-05-2022 08:49-0400 Systolic blood pressure 130 mm[Hg] Savanna Zhang MD Work Phone: [facility] 07-20-2022 14:01-0500 Blood Pressure Location ISABELA SIDELL [facility] 07-20-2022 14:01-0500 Diastolic blood pressure 72 mm[Hg] ISABELA SIDELL [facility] 07-20-2022 14:01-0500 Heart rate 56 /min ISABELA SIDELL [facility] 07-20-2022 14:01-0500 SaO2% (BldA) [Mass fraction] 94 % ISABELA SIDELL [facility] 07-20-2022 14:01-0500 Systolic blood pressure 140 mm[Hg] ISABELA SIDELL [facility] 04-22-2022 13:10-0500 Blood Pressure Location Janel Lou [facility] 04-22-2022 13:10-0500 Heart rate 134 /min Janel Johnsonk [facility] 04-22-2022 13:10-0500 Respiratory rate 74 /min Janel Lou [facility] 04-22-2022 13:10-0500 SaO2% (BldA) [Mass fraction] 96 % Janel Lou [facility] 04-02-2022 07:57-0400 Body height 175.3 cm Savanna Zhang MD Work Phone: [facility] 04-02-2022 07:57-0400 Body weight 87.09 kg Savanna Zhang MD Work Phone: [facility] 04-02-2022 07:57-0400 Diastolic blood pressure 68 mm[Hg] Savanna Zhang MD Work Phone: [facility] 04-02-2022 07:57-0400 Heart rate 74 /min Savanna Zhang MD Work Phone: [facility] 04-02-2022 07:57-0400 Systolic blood pressure 136 mm[Hg] Savanna Zhang MD Work Phone: [facility] Encounters Encounter Date Encounter Type Care Provider Facility Start: 05-09-2024 ambulatory Raul Martinez y:OMEGA Obando Start: 02-22-2024 ambulatory IVONNE Rowe ty:[facility] Start: 12-27-2023 End: 12-27-2023 ambulatory PARADISE BLAKE Not Available Start: 12-06-2023 End: 12-07-2023 ambulatory RAUL DUMONT [facility] Start: 11-09-2023 Telephone encounter Floyd martin MD Work Phone: Cardiology Comment on above: Medication Problem; Patient Question Start: 11-04-2023 End: 11-04-2023 ambulatory [facility] Work Phone: Start: 11-04-2023 End: 11-04-2023 Patient encounter procedure [facility] Work Phone: Start: 11-03-2023 End: 11-03-2023 ambulatory CHAITANYA WATKINS Facility:[facility] Start: 11-03-2023 End: 11-03-2023 Patient encounter procedure Chaitanya Watkins DPM Work Phone: Orthopaedics Comment on above: Onychomycosis (Prima ry Dx); Pain in toes of both feet Start: 10-19-2023 Telephone encounter Bill Watkins DPM Work Phone: Orthopaedics Comment on above: Shoe Inserts; Return ing Patient's Call (Phoned patient and left detailed message that he can call [facility] and gave him the number to order another pair of orthotics. Since insurance doesn't cover them it would be more cost effective.) Start: 09-09-2023 End: 09-09-2023 ambulatory DELBERT HAWKINS Not Available Start: 08-05-2023 End: 08-05-2023 ambulatory CHAITANYA JUNE Facility:[facility] Start: 08-05-2023 End: 08-05-2023 Patient encounter procedure Chaitanya ESCOBEDOM Work Phone: Orthopaedics Comment on above: Onychomycosis (Prima ry Dx); Pain in toes of both feet Start: 07-08-2023 Refill Barbara rabago APRN.BENJAMIN, DNP Work Phone: Cardiology Comment on above: Refill Request Start: 07-07-2023 Telephone encounter Barbara Warner APRN.CNP, RAMÓN Work Phone: Cardiology Comment on above: Medication Question Start: 06-30-2023 End: 06-30-2023 ambulatory Clara Cobian Other AMT Other Start: 06-30-2023 Office outpatient vi sit 10 minutes Clara Cobian [facility] Start: 06-24-2023 End: 06-24-2023 ambulatory PARADISE BLAKE Not Available Start: 06-04-2023 End: 06-04-2023 ambulatory FLOYD BANUELOSMAN Facility:[facility] Start: 05-12-2023 End: 05-12-2023 ambulatory Cassie Magy RT(R) Radiology Comment on above: Radiology XR Start: 05-12-2023 End: 05-12-2023 Patient encounter procedure Cassie Bhatti RT(R) [facility] [place] Comment on above: Pain in toes of both feet (Primary Dx) Equinus contracture of ankle (Primary Dx); Metatarsalgia of both feet Start: 05-05-2023 End: 05-05-2023 ambulatory CHAITANYA WATKINS Facility:[facility] Start: 05-05-2023 End: 05-05-2023 Patient encounter procedure Chaitanya Watkins DPM Work Phone: Orthopaedics Comment on above: Onychomycosis (Prima ry Dx); Pain in toes of both feet Start: 05-03-2023 End: 05-03-2023 ambulatory MP MARTINEZ Facility:[facility] Start: 05-03-2023 End: 05-03-2023 Patient encounter procedure MP MARTINEZ [facility] Start: 04-22-2023 End: 04-22-2023 ambulatory Lisa Archibald Other AMT Other Start: 04-22-2023 Office outpatient vi sit 15 minutes Lisa Archibald [facility] Start: 04-11-2023 End: 04-11-2023 Emergency department patient visit Jh Rosario [facility] Start: 02-16-2023 End: 02-16-2023 ambulatory IVONNE GRANT Facility:[facility] Start: 02-16-2023 End: 02-16-2023 Patient encounter procedure IVONNE Mary GARNT [facility] Start: 02-15-2023 End: 02-15-2023 ambulatory RAUL Uribe JULIA Facility:[facility] Start: 01-27-2023 End: 01-27-2023 ambulatory CHAITANYA WATKINS Facility:[facility] Start: 01-27-2023 End: 01-27-2023 Patient encounter procedure Chaitanya Watkins DPM Work Phone: Orthopaedics Comment on above: Onychomycosis (Prima ry Dx); Pain in toes of both feet Start: 01-25-2023 Refkaleb Zhang MD Work Phone: Cardiology Start: 01-14-2023 End: 01-14-2023 Patient encounter procedure Barbara Warner MEDICAL DOCTOR MD/MEDICAL DIRECTOR.POISER, DNP Work Phone: [place] [id number] Comment on above: Paroxysmal atrial fi brillation (HCC) (Primary Dx); Nonrheumatic mitral valve regurgitation; Nonrheumatic aortic valve stenosis; Essential hypertension; S/P MVR (mitral valve replacement) Start: 01-14-2023 End: 01-14-2023 ambulatory BARBARA WARNER Facility:[facility] Start: 01-06-2023 ambulatory Zari Cobb RN [facility] Start: 12-16-2022 End: 12-16-2022 Patient encounter procedure Mary Jo Olvera MEDICAL DOCTOR MD/MEDICAL DIRECTOR.POISER Work Phone: Cardiothoracic Comment on above: S/P aortic valve rep lacement (Primary Dx); S/P mitral valve repair; S/P patent foramen ovale closure; Paroxysmal atrial fibrillation (HCC); Essential hypertension Start: 12-16-2022 End: 12-16-2022 ambulatory BRAIN NIEVES Facility:[facility] Start: 12-16-2022 End: 12-16-2022 Subsequent hospital visit by physician Brain Nieves MD Work Phone: Radiology Comment on above: Surgery follow-up [Z 09] Start: 12-11-2022 Telephone encounter Brain doss MD Work Phone: Cardiology Comment on above: Patient Question Start: 12-10-2022 Telephone encounter Mary Carmen Meier RN NOC Comment on above: Follow Up Phone Call ([facility] 1st attempt/) Start: 12-09-2022 Admission to same da y surgery center BRAIN NIEVES [facility] Start: 12-09-2022 End: 12-09-2022 Evaluation and management of inpatient BRAIN SILVIA Facility:[facility] Start: 12-04-2022 End: 12-06-2022 Admission to same day surgery center Chaitanya Watkins DPM Work Phone: [facility] Start: 12-04-2022 End: 12-09-2022 Evaluation and management of inpatient BRAIN SILVIA Facility:[facility] Start: 12-03-2022 End: 12-03-2022 Admission to same day surgery center Brain Nieves MD Work Phone: Cardiothoracic Start: 12-03-2022 End: 12-03-2022 ambulatory BRAIN NIEVES Facility:[facility] Start: 12-03-2022 Encounter for preprocedural cardiovascular examination BRAIN NIEVES [facility] Start: 12-03-2022 End: 12-03-2022 Patient encounter procedure Brain Nieves MD Work Phone: Cardiothoracic Comment on above: Encounter for educat ion (Primary Dx); Pre-op exam Encounter for preope rative anesthesiology assessment for cardiac surgery (Primary Dx); Atherosclerosis of aorta (HCC); Paroxysmal atrial fibrillation (HCC) Nonrheumatic aortic valve stenosis (Primary Dx) Start: 12-03-2022 End: 12-03-2022 Preprocedural examination done Brain Nieves MD Work Phone: Cardiothoracic Start: 12-02-2022 End: 12-02-2022 ambulatory RAUL DUMONT Facility:[facility] Start: 12-01-2022 Telephone encounter Kostas jones DO Work Phone: Cardiology Comment on above: Education Of Patient /family Start: 12-01-2022 End: 12-01-[address] (I-Stat) Radiology Start: 12-01-2022 End: 12-01-2022 Subsequent hospital visit by physician Ct 2 Main Qb (I-Stat) Radiology Comment on above: Encounter for prepro cedural cardiovascular examination [Z01.810] Start: 12-01-2022 End: 12-01-2022 ambulatory BRAIN NIEVES Facility:[facility] Start: 11-23-2022 Telephone encounter Maura ray RN Work Phone: Case Management Comment on above: Herbicide Sprayer - O ther (Care Continuum Advisor Assessment ) Start: 11-10-2022 Refill Savanna Zhang MD Work Phone: Provider Adult Comment on above: Refill Request Insurance Authorizat ion Start: 10-20-2022 End: 10-20-2022 Patient encounter procedure Chaitanya Watkins DPM Work Phone: Orthopaedics Comment on above: Onychomycosis (Prima ry Dx); Pain in toes of both feet; Atherosclerosis of aorta (HCC) Start: 10-19-2022 End: 10-19-2022 Subsequent hospital visit by physician Savanna Zhang MD Work Phone: [facility] Comment on above: Mitral valve insuffi ciency, unspecified etiology [I34.0] Start: 10-05-2022 Telephone encounter Savanna Zahng MD Work Phone: Cardiology Comment on above: Procedure Start: 10-05-2022 End: 10-05-2022 Patient encounter procedure Savanna Zhang MD Work Phone: Cardiology Comment on above: Mitral regurgitation and aortic stenosis (Primary Dx); Nonrheumatic aortic valve stenosis; Primary hypertension; Cardiac risk counseling; Atherosclerosis of aorta (HCC); Paroxysmal atrial fibrillation (HCC) Start: 10-02-2022 Refill Floyd leyva MD Work Phone: Cardiology Comment on above: Refill Request Start: 07-22-2022 End: 07-22-2022 Patient encounter procedure Chaitanya Watkins DPM Work Phone: Orthopaedics Comment on above: Onychomycosis (Prima ry Dx); Pain in toes of both feet Start: 07-20-2022 End: 07-20-2022 Patient encounter procedure ISABELA W GALI [facility] Start: 04-22-2022 End: 04-22-2022 Patient encounter procedure Janel Lou [facility] Start: 04-22-2022 End: 04-22-2022 Well adult monitoring check done Janel Lou [facility] Start: 04-21-2022 End: 04-21-2022 Patient encounter procedure Chaitanya Watkins DPM Work Phone: Orthopaedics Comment on above: Onychomycosis (Prima ry Dx); Pain in toes of both feet Start: 04-15-2022 ambulatory Floyd leyva MD Work Phone: Cardiology Comment on above: Xarelto Start: 04-02-2022 End: 04-02-2022 Patient encounter procedure Savanna Zhang MD Work Phone: Cardiology Comment on above: Paroxysmal atrial fi brillation (HCC) (Primary Dx); Nonrheumatic aortic valve stenosis; Primary hypertension; Hyperlipidemia with target LDL less than 70 Start: 02-23-2022 Telephone encounter Floyd martin MD Work Phone: Cardiology Comment on above: Results Start: 12-30-2021 End: 12-30-2021 Patient encounter procedure DO Raul Dumont Work Phone: [facility] [address] Start: 12-25-2021 End: 12-26-[address] OSMEL GARCIA Facility: Start: 10-06-2021 Refill Floyd leyva MD Work Phone: Cardiology Comment on above: Refill Request Procedures Date Procedure Procedure Detail Performing Clinician Start: 01-14-2023 Ecg routine ecg w/le ast 12 lds trcg only w/o i&r [facility] Provider Start: 12-16-2022 Radiologic exam ches t 2 views Brain Nieves MD Work Phone: Start: 12-09-2022 Echocardiography FLOYD SPAULDING Start: 12-03-2022 Iadna s aureus ampli fied probe tq Brain Nieves MD Work Phone: Start: 12-01-2022 Ct angiography chest w/contrast/noncontrast Brain Nieves MD Work Phone: Start: 12-01-2022 Creatinine [Mass/vol ume] in Serum or Plasma [facility] Provider Start: 12-01-2022 Antibody screen FLOYD SPAULDING Comment on above: Order Comment: Speci men Type: BLOOD SPECIMENOrdering Facility: [facility] Address: [address] [place] [address] Performed By: #### T SCR30 ####[facility] [id number] [address] [place] Start: 11-05-2022 Open heart surgery CLAUDIA GRANT Start: 10-19-2022 Echo transthorc r-t 2d w/wo m-mode rec f-up/lmtd Savanna Zhang MD Work Phone: Start: 10-19-2022 LVEF ECHO TRANSESOPHAGEAL Savanna Zhang MD Work Phone: Start: 12-30-2021 MRI of head DO Raul Dumont Work Phone: Start: 12-25-[address] DEANNA DUMONT Comment on above: Performed By: #### P SAD #### [facility] [address] [place] [address] Dr. Bryn Santo Start: 07-13-2018 Cystoscopy IVONNE ANN Ankle, left Janel Lou Back Surgery Janel Lou Colonoscopy Janel Lou Extraction of cataract El Lou Prostatectomy Janel Lou Plan of Treatment Date Care Activity Detail Author Start: 06-29-2033 Urine microalbumin profile DTaP,Tdap,Td Vaccine (2 - Td or Tdap) [facility] Start: 12-16-2025 DIABETES SCREEN DIABETES SCREEN [facility] Start: 12-16-2025 Diabetes Screening Diabetes Screening [facility] Start: 12-08-2025 DIABETES SCREEN DIABETES SCREEN [facility] Start: 12-01-2025 DIABETES SCREEN DIABETES SCREEN [facility] Start: 04-15-2025 DIABETES SCREEN DIABETES SCREEN [facility] Start: 05-26-2024 End: 05-26-2024 Patient encounter procedure 05/26/2024 10:30 AM EST Office Visit Cardiology [address] [facility] [address] [place], [place] [id number] Floyd Spaulding MD [address] [place] [address] 1 Year Follow uP Of Afib Cardiology Comment on above: 1 Year Follow uP Of Afib Start: 02-08-2024 End: 02-08-2024 Patient encounter procedure 02/08/2024 11:00 AM EDT Office Visit Orthopaedics [address] [place] [address] Chaitanya Watkins, [place] [address] [place] [address] 3 month nail care Orthopaedics Comment on above: 3 month nail care Start: 02-06-2024 Influenza vaccination Influenza Vaccine (Season Ended) [facility] Start: 01-14-2024 DIABETES SCREEN DIABETES SCREEN [facility] Start: 11-03-2023 End: 11-03-2023 Patient encounter procedure 11/03/2023 8:45 AM EDT Office Visit Orthopaedics [address] [place] [address] Chaitanya Watkins, DPM [address] [place] [address] 3 month nail care Orthopaedics Comment on above: 3 month nail care Start: 06-07-2023 Advance Directive Discussion Advance Directive Discussion [facility] Start: 06-07-2023 Behavioral Health Screening Behavioral Health Screening [facility] Start: 06-07-2023 Depression Assessment Depression Assessment [facility] Start: 02-05-2023 Covid-19 Vaccine () Covid-19 Vaccine () [facility] Start: 02-05-2023 Influenza vaccination [facility] Start: 10-01-2022 End: 04-02-2023 Echocardiography ECHO Cardiology Routine Nonrheumatic aortic valve stenosis Expected: 10/01/2022, Expires: 04/02/2023 [facility] Work Phone: Comment on above: Expected: 10/01/2022, Expires: Start: 06-07-2022 ADVANCE DIRECTIVE DISCUSSION ADVANCE DIRECTIVE DISCUSSION [facility] Start: 06-07-2022 DEPRESSION ASSESSMENT DEPRESSION ASSESSMENT [facility] Start: 02-05-2022 Influenza vaccination INFLUENZA (#1) [facility] Start: 06-07-2021 ADVANCE DIRECTIVE DISCUSSION ADVANCE DIRECTIVE DISCUSSION [facility] Start: 06-07-2021 DEPRESSION ASSESSMENT DEPRESSION ASSESSMENT [facility] Start: 04-01-2021 COVID-19 VACCINE (2 - Pfizer series) COVID-19 VACCINE (2 - Pfizer series) [facility] Start: 02-25-2021 COVID-19 VACCINE (2 - Pfizer 3-dose series) COVID-19 VACCINE (2 - Pfizer 3-dose series) [facility] Start: 02-25-2021 COVID-19 VACCINE (2 - Pfizer series) COVID-19 VACCINE (2 - Pfizer series) [facility] Start: 2004 PNEUMOVAX AGE 65 AND OVER WITH 5YR LOOKBACK (#1) PNEUMOVAX AGE 65 AND OVER WITH 5YR LOOKBACK (#1) [facility] Start: 1999 RSV Vaccine (1 - 1-dose 60+ series) RSV Vaccine (1 - 1-dose 60+ series) [facility] Start: 1989 SHINGRIX VACCINE (1 of 2) SHINGRIX VACCINE (1 of 2) [facility] Start: 1958 Urine microalbumin profile [facility] Start: 1945 PNEUMOCOCCAL: 65+ (1 - PCV) PNEUMOCOCCAL: 65+ (1 - PCV) [facility] End: 10-06-2023 ECG COMPLETE ECG COMPLETE ECG Routine Mitral regurgitation and aortic stenosis 1 Occurrences starting 10/05/2022 until 10/06/2023 [facility] Work Phone: Comment on above: 1 Occurrences starting 10/05/2022 until 10/06/2023 End: 01-15-2024 ECG COMPLETE ECG COMPLETE ECG Routine Paroxysmal atrial fibrillation (HCC) 1 Occurrences starting 01/14/2023 until 01/15/2024 [facility] Work Phone: Comment on above: 1 Occurrences starting 01/14/2023 until 01/15/2024 Ecg routine ecg w/le ast 12 lds w/i&r EKG WITH INTERPRETATION Cardiology Routine Paroxysmal atrial fibrillation (HCC) Ordered: 04/02/2022 [facility] Work Phone: Comment on above: Ordered: 04/02/2022 End: 10-06-2023 ECHO TRANSESOPHAGEAL ECHO TRANSESOPHAGEAL Cardiology Routine Mitral regurgitation and aortic stenosis 1 Occurrences starting 10/05/2022 until 10/06/2023 [facility] Work Phone: Comment on above: 1 Occurrences starting 10/05/2022 until 10/06/2023 Electrocardiogram EKG BIC Routin e 01/14/2023 1:15 PM EDT [facility] Immunizations Immunization Date Immunization Notes Care Provider Joellen porras 04-23-2022 influenza, injectabl e, quadrivalent, preservative free ISABELA TALBERT [facility] 04-23-2022 influenza virus vaccine, unspecified formulation Juanjoyanemax June DPM Work Phone: [facility] 02-04-2021 influenza virus vaccine, unspecified formulation Janel Klonk [facility] Comment on above: Result Comment: [facility] 02-04-2021 SARS-CoV-2 (COVID-19 ) mRNA BNT-162b2 vax Janel Klonk [facility] Comment on above: Result Comment: [facility] 06-07-2020 SARS-CoV-2 mRNA (tozinameran 5y-11y) vaccine Janel Klonk [facility] 03-12-2020 influenza, injectabl e, quadrivalent, preservative free Janel Klonk [facility] 03-15-2019 influenza virus vaccine, unspecified formulation Janel Klonk [facility] 06-03-2018 zoster vaccine recombinant Janel Klonk [facility] 03-04-2018 influenza virus vaccine, unspecified formulation Janel Klonk [facility] 03-04-2018 zoster vaccine recombinant Janel Klonk [facility] 03-07-2015 zoster vaccine recombinant Janel Klonk [facility] 06-07-2014 pneumococcal conjuga te vaccine, 13 valent Janel Klonk [facility] 06-21-2006 pneumococcal polysaccharide vaccine, 23 valent Janel Klonk [facility] 04-14-2002 pneumococcal polysaccharide vaccine, 23 valent Janel Klonk [facility] Payers Date Payer Category Payer Unknown [employer] DICARE SUPPLEMENT [id number] 2016-Present [phone] [address] [place] [address] Indemnity [id number] 2016 Unknown [employer] ME DICARE SUPPLEMENT [id number] 2016-Present [phone] [address] [place] [id number] Indemnity [id number] 2004 Medicare MEDICARE MEDICAR E A AND B [id number] 2004-Present [phone] [address] [place] [id number] Medicare [id number] 2004 Medicare MEDICARE MEDICAR E A AND B [id number] 2004-Present [phone] [place] [id number] Medicare [id number] 1959 Medicare [id number] 1959 Unknown [id number] 1939 Unknown [id number] 3 1939 Unknown [id number] 3 1939 Unknown [id number] 2 1939 Unknown [id number] 7 1940 Unknown [id number] 7 1940 Unknown [id number] 1940 Unknown [id number] 1940 Unknown [id number] 7 1940 Unknown [id number] 7 1940 Unknown [id number] 1940 Unknown [id number] 59 1940 Unknown [id number] Self-pay Self Pay [id number] Social History Date Type Detail Facility Start: 06-15-2014 End: 06-27-2021 Tobacco smoking status NHIS Never smoked tobacco [facility] Start: 07-08-2020 End: 06-04-2023 Alcohol intake Current non-drinker of alcohol (finding) [facility] Start: 1940 Sex Assigned At Male [facility] Start: 06-15-2014 Tobacco use and exposure Smoke less tobacco non-user [facility] Start: 02-24-2022 End: 03-06-2022 Exposure to SARS-CoV-2 (event) Unable to assess [facility] Start: 03-23-2022 End: 04-21-2022 Exposure to SARS-CoV-2 (event) Not sure [facility] Tobacco smoking status Never [facility] Start: 10-20-2022 End: 12-16-2022 Sex Assigned At Male [facility] Start: 12-09-2022 History SDOH Financial 5 [facility] Start: 12-09-2022 History SDOH Food Worry 1 [facility] Start: 12-09-2022 History SDOH Transpo rt Med 2 [facility] Start: 10-20-2022 End: 12-16-2022 History of Social function [facility] (I/We) worried wheth er (my/our) food would run out before (I/we) got money to buy more. Never true [facility] In the past 12 month s, was there a time when you were not able to pay the mortgage or rent on time? No [facility] Start: 06-18-2020 Gender identity Identifies as male gender (finding) [facility] Start: 06-18-2020 Sexual orientation Choose not to dis close [facility] Medical Equipment Procedure Code Equipment Code Equipment Original Text Equipment Identifier Dates Subtalar Negro Imp lant 9mm - [id number] Start: 02-05-2010 Band Cline Ancor e 35mm 35mm Annuloplasty Flexible [place] Chordal Guide - [id number] Start: 12-04-2022 Patch Thk.5mm Johnnie vine Pericardial [id number] Cardiovascular Resilience Durable - [id number] Start: 12-04-2022 Valve Joe-Mariano Perimount Magna Ease 25mm Low Profile Pericardial - [id number] Start: 12-04-2022 Functional Status Date Assessment Result Facility 05-03-2023 Functional Status N/A [facility] 04-11-2023 Functional Status N/A [facility] 02-16-2023 Functional Status N/A [facility] 07-20-2022 Functional Status N/A [facility] 04-22-2022 Functional Status N/A [facility] Clinical Notes 10-06-2021 to 11-09-2023 Telephone Encounter - Clara Hernandez RN - 11/09/2023 4:10 PM EDTTelephone Encounter - Clara Hernandez RN - 11/09/2023 4:10 PM EDTTelephone Encounter - Basim Escalante - 11/09/2023 3:45 PM EDT Note Date & Type Note Facility 11-09-2023 Telephone encount er Note Tried to reach patient by phone. Left message to return call to office Clara Hernandez RN [facility] 11-09-2023 Miscellaneous Notes Formattin g of this note might be different from the original. Tried to reach patient by phone. Left message to return call to office Clara Hernandez RN November 09, 2023 [id number] Patient Name: Jordi Franco Contact Information: [phone] (home) [phone] (cell) Reason For Call: Medication Issue/Question: Xerelto Physician:Floyd Spaulding M.D. Additional Comments: Pt has parkinson's and is falling a lot. Please revisit Rx dosage ro[place] of falls. Please advise. Is it ok to leave detailed message on voice mail : Yes Requested Prescriptions No prescriptions requested or ordered in this encounter Basim Escalante documented in this encounter [facility] 11-09-2023 Telephone encount er Note November 09, 2023 [id number] Patient Name: Jordi Gabriel Salvador Contact Information: [phone] (home) [phone] (cell) Reason For Call: Medication Issue/Question: Xerelto Physician:Floyd Spaulding M.D. Additional Comments: Pt has parkinson's and is falling a lot. Please revisit Rx dosage roberta of falls. Please advise. Is it ok to leave detailed message on voice mail : Yes Requested Prescriptions No prescriptions requested or ordered in this encounter Basim Escalante [facility] 11-03-2023 Note [facility] 11-03-2023 History of Presen t illness Narrative SUBJECTIVE: The patient presents today with his present with discomfort in most of his toenails that are markedly elongated that he is unable to get down to cut himself. PHYSICAL EXAMINATION: Neurovascular Status: Apparently unchanged, bilateral. No appreciable substantial edema or erythema. Pedal pulse and capillary refill are within normal. Dermatologic: The patient has elongated, thickened, yellow, brittle, deformed, and crumbly toenails greater than 5. He has some incurvation and sharpness of the distal lateral corner of the hallux nails. There are no appreciable signs of periungual abscess, infection, or cellulitis. Ortho-Musculoskeletal: There is discomfort with palpation especially upon debridement of greater than 5 nails. DIAGNOSES: Onychomycosis greater than 5 with pain greater than 5 for this visit PLAN: Discussed results of clinical examination with the patient in detail along with treatment options. The patient was alert and oriented x3 in no apparent acute distress. I debrided toenails 1-10 in length and thickness with a nail splitter, resected the offending corners of the hallux nails. I recommend follow-up in approximately 3 to 4 months for the same to maintain comfort and reduce risk of complications Documentation from my notes of previous visit of 08/05/23 was copied and pasted, documentation has been reviewed and edited as necessary and is current for today. Chaitanya Watkins D.P.M. documented in this encounter [facility] 10-19-2023 Telephone encount er Note Phoned patient and left detailed message that he can call the Lab. [facility] and gave number to call to order a duplicate pair of orthotics at cost. Natty hsieh MA [facility] 10-19-2023 Miscellaneous Notes Formattin g of this note might be different from the original. Phoned patient and left detailed message that he can call the Lab[facility] and gave number to call to order a duplicate pair of orthotics at cost. Natty hsieh MA -Pt's daughter (Sabiha) calling in to office. Pt identified by name and date. -Noted Sabiha is not listed in Pt's chart. Discussed HIPAA laws. Informed daughter she can give me any information she would like, but I cannot provide any information from Pt's chart to her. -Daughter states they know this is an issue. Plans to have Pt call office soon so permission to discuss Pt's medical concerns with her can be documented. -States [facility] provider recently prescribed inserts for Pt's workout/running shoes which are really helping/ States Pt has flat arches and was experiencing pain on the inside of BL knees while working out. -States they have noted Pt is having the same knee pain (mainly on the inside of Pt's RT knee) while walking in his every day shoes. -States her spouse was prescribed some foam inserts by [facility] provider to use with his everyday shoes. Sabiha believes these may be beneficial for Pt as well. -Sabiha is asking for a prescription for foam inserts for Pt. [facility] office can call Pt if a prescription is sent. documented in this encounter [facility] 10-19-2023 Telephone encount er Note -Pt's daughter (Sabiha) calling in to office. Pt identified by name and date. -Noted Sabiha is not listed in Pt's chart. Discussed HIPAA laws. Informed daughter she can give me any information she would like, but I cannot provide any information from Pt's chart to her. -Daughter states they know this is an issue. Plans to have Pt call office soon so permission to discuss Pt's medical concerns with her can be documented. -States [facility] provider recently prescribed inserts for Pt's workout/running shoes which are really helping/ States Pt has flat arches and was experiencing pain on the inside of BL knees while working out. -States they have noted Pt is having the same knee pain (mainly on the inside of Pt's RT knee) while walking in his every day shoes. -States her spouse was prescribed some foam inserts by [facility] provider to use with his everyday shoes. Sabiha believes these may be beneficial for Pt as well. -Sabiha is asking for a prescription for foam inserts for Pt. [facility] office can call Pt if a prescription is sent. [facility] 08-05-2023 Note [facility] 08-05-2023 History of Presen t illness Narrative SUBJECTIVE: The patient presents today with his present with discomfort in most of his toenails that are markedly elongated that he is unable to get down to cut himself. PHYSICAL EXAMINATION: Neurovascular Status: Apparently unchanged, bilateral. No appreciable substantial edema or erythema. Pedal pulse and capillary refill are within normal. Dermatologic: The patient has elongated, thickened, yellow, brittle, deformed, and crumbly toenails greater than 5. He has some incurvation and sharpness of the distal lateral corner of the hallux nails. There are no appreciable signs of periungual abscess, infection, or cellulitis. Ortho-Musculoskeletal: There is discomfort with palpation especially upon debridement of greater than 5 nails. DIAGNOSES: Onychomycosis greater than 5 with pain greater than 5 for this visit PLAN: Discussed results of clinical examination with the patient in detail along with treatment options. The patient was alert and oriented x3 in no apparent acute distress. I debrided toenails 1-10 in length and thickness with a nail splitter, resected the offending corners of the hallux nails. I recommend follow-up in approximately 3 to 4 months for the same to maintain comfort and reduce risk of complications Documentation from my notes of previous visit of 05/05/23 was copied and pasted, documentation has been reviewed and edited as necessary and is current for today. Chaitanya Watkins, Radha.P.M. documented in this encounter [facility] 07-08-2023 Miscellaneous Notes Formattin g of this note might be different from the original. Pended new prescription. Louise Moore RN Patient called states he takes 25 mg Metoprolol once daily. Received fax from [facility] pharmacy for patient's metoprolol. Fax shows different dose from medication list. Spoke with patient who is currently not home. He will have his check the bottle and get back to us. Will need new prescription for metoprolol (see notes on 01/22/2023 had elevated heart rate in the 90's - in the 70's afterwards). Louise Moore RN documented in this encounter [facility] 06-30-2023 Evaluation note Encounter Date Diagnosis Assessment Notes Jun, Visit for wound check (ICD-10 - Z51.89) Keep the wound clean and dry. Take the antibiotic as prescribed until gone. Apply antibiotic ointment to the wound daily. You may shower without covering the wound. No swimming until the stitches are out and the wound is healed. Up with your family physician as scheduled for suture removal next week. Go to the ER for worsening symptoms or concerns AMT Other [facility] History of Present illness Narrative* Chaitanya Watkins DPM - 05/12/2023 9:54 AM EST Images from the original note were not included. PRIMARY SERVICE: [facility] SUBJECTIVE: He presents today with his present requesting new custom foot orthotics since his current orthotics are from 2014. He does have some left ankle issues. Medical: PAST MEDICAL HISTORY Diagnosis Date Ankle instability left Aortic stenosis Asthma exercise Atrial fibrillation (HCC) BPH (benign prostatic hyperplasia) Bronchitis Cancer (HCC) basal cell Cardiac insufficiency following cardiac surgery 12/04/2022 Cardiomegaly 09/22/2012 borderline Dyslipidemia [place] (hard of hearing) Hypertension Mitral regurgitation Pinched nerve in neck Spinal stenosis Stroke (HCC) 06/07/2007 TIA (transient ischemic attack) 06/07/2007 Verruca ALLERGIES: ALLERGIES Allergen Reactions Grass Pollen Unknown Nasonex [Mometasone] Other: See Comments Made him feel very hot and very jittery and shakey. Prednisone Mental Status Change Sulfa (Sulfonamide * Unknown MEDICATIONS: Current Outpatient Medications Medication Sig metoprolol succinate ER (TOPROL XL) 25 mg 24 hr tablet Take 2 tablets by mouth once daily. docusate sodium (COLACE) 100 mg capsule Take 1 capsule by mouth twice daily as needed for constipation. polyethylene glycol 3350 (MIRALAX) 17 gram/dose powder Take 17 g by mouth once daily. Dissolve dosein 4 - 8 ounces of liquid and take as directed. acetaminophen (TYLENOL) 325 mg tablet Take 2 tablets by mouth every 4 hours as needed (post-op pain). furosemide (LASIX) 20 mg tablet Take 1 tablet by mouth once daily for 7 days. atorvastatin (LIPITOR) 10 mg tablet TAKE 1 TABLET BY MOUTH EVERY DAY lysine 500 mg tab Take by mouth. Vitamin E Acetate, Bulk, 125 unit/mL liqd XARELTO 20 mg tablet TAKE 1 TABLET BY MOUTH ONCE DAILY. PLEASE CALL THE OFFICE FOR AN APPOINTMENT. finasteride (PROSCAR) 5 mg tablet escitalopram oxalate (LEXAPRO) 5 mg tablet TAKE 1 TABLET BY MOUTH ONE TIME A DAY ascorbic acid/bioflavonoids (MONIQUE C ORAL) Take by mouth once daily. pantoprazole DR (PROTONIX) 40 mg tablet Take 1 tablet by mouth once daily. UBIDECARENONE (CO Q-10 ORAL) Take by mouth. Patient unsure of dosage Chews two gummies a day MULTIVITAMIN ORAL Take by mouth once daily. No current facility-administered medications for this visit. 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 NEUROVASCULAR: Intact and unchanged bilateral DERMATOLOGIC: Unremarkable as related chief complaint bilateral ORTHO/MUSCULOSKELETAL: Patient has limited passive ankle dorsiflexion direction -10 degrees with the knee extended. 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 I casted the patient today for new custom molded functional orthotics [id number] x2 units utilizing neutral suspension technique. Advise should arrive in 3 to 4 weeks for fitting. Recommend a solo maxi shock device with a padded fabric top-cover SIGNATURE: Chaitanya Watkins DPM DATE of SERVICE: 05/12/2023 TIME of SERVICE: 9:54 AM [facility] NoteHNO ID: [id number] Author: aTvo Darling Cast Tech Service: ? Author Type: [place] Stained Glass Type: Progress Notes Filed: 05/12/2023 9:50 AM Note Text: Patient was casted today for Custom Fitted Orthotics. [facility] History of Present illness Narrative* Tavo Darling Cast Tech - 05/12/2023 9:48 AM EST Patient was casted today for Custom Fitted Orthotics. BELA Corona [facility]23 [facility]12-06-20[facility] History of Present illness Narrative* Cassie Bhatti, RT(R) - 05/12/2023 9:26 AM EST Radiology Service Progress Note PATIENT NAME: Jordi Franco DATE OF SERVICE: May 12, 2023 TIME: 9:26 AM PATIENT IDENTITY VERIFICATION COMPLETED USING TWO (2) IDENTIFIERS: Name and Date of confirmedby patient verbally. FALL SCREENING: Has the patient had 2 falls in the last year or 1 fall with injury or currently using an Ambulatory Assistive Device (Walker, Cane, Wheelchair, Crutches, etc.)? No PATIENT GENDER DATA: Male PATIENT RELEVANT IMPLANT DATA REVIEWED: Not Applicable RADIOLOGY DEPARTMENT: General X-ray: Exam(s) Completed: Lower Extremity X- Ray(s): Foot, Left PERIPHERAL IV DATA: Not applicable SIGNED BY: RT Ivonne(R) May 12, 2023 9:26 AM [facility] History of Present illness Narrative* Chaitanya Watkins DPM - 05/05/2023 9:42 AM EST SUBJECTIVE: The patient presents today with his present with discomfort in most of his toenails that are markedly elongated that he is unable to get down to cut himself. PHYSICAL EXAMINATION: Neurovascular Status: Apparently unchanged, bilateral. No appreciable substantial edema or erythema. Pedal pulse and capillary refill are within normal. Dermatologic: The patient has elongated, thickened, yellow, brittle, deformed, and crumbly toenailsgreater than 5. He has some incurvation and sharpness of the distal lateral corner of the hallux nails. There are no appreciable signs of periungual abscess, infection, or cellulitis. Ortho-Musculoskeletal: There is discomfort with palpation especially upon debridement of greater than 5 nails. DIAGNOSES: Onychomycosis greater than 5 with pain greater than 5 for this visit PLAN: Discussed results of clinical examination with the patient in detail along with treatment options. The patient was alert and oriented x3 in no apparent acute distress. I debrided toenails 1-10 in length and thickness with a nail splitter, resected the offending corners of the hallux nails. I recommend follow-up in approximately 3 to 4 months for the same to maintain comfort and reduce risk of complications Documentation from my notes of previous visit of 01/27/23 was copied and pasted, documentation has been reviewed and edited as necessary and is current for today. Chaitanya Watkins D.P.M. documented in [facility] Evaluation note* Encounter Date Diagnosis Assessment Notes Treatment Notes Treatment Clinical Notes Apr, Tongue ulcer (ICD-10 - K14.0) Discussed diagnosis with patient today in office. Advised patient that ulcer is likely due to inflamed taste bud. Encouraged warm salt water gargles for treatment. May take Tylenol as needed for discomfort. Follow-up with PCP or dentist if symptoms do not improve or worsen. Patient verbalizes understanding and is agreeable with treatment plan AMT Other 11-05-2023 Hospital Discharge instructions Patient Education 04/11/2023 12:30:49 Dizziness Dizziness Dizziness is a common problem. It is a feeling of unsteadiness or light- headedness. You may feel like you are about to faint. Dizziness can lead to injury if you stumble or fall. Anyone can become dizzy, but dizziness is more common in older adults. This condition can be caused by a number of things, including medicines, dehydration, or illness. Follow these instructions at home: Eating and drinking Drink enough fluid to keep your urine pale yellow. This helps to keep you from becoming dehydrated.Try to drink more clear fluids, such as water. Do not drink alcohol. Limit your caffeine intake if told to do so by your health care provider. Check ingredients and nutrition facts to see if a food or beverage contains caffeine. Limit your salt (sodium) intake if told to do so by your health care provider. Check ingredients and nutrition facts to see if a food or beverage contains sodium. Activity Avoid making quick movements. ?Rise slowly from chairs and steady yourself until you feel okay. ?In the morning, first sit up on the side of the bed. When you feel okay, stand slowly while you hold onto something until you know that your balance is good. If you need to clothing busheler one place for a long time, move your legs often. Tighten and relax the muscles in your legs while you are standing. Do not drive or use machinery if you feel dizzy. Avoid bending down if you feel dizzy. Place items in your home so that they are easy for you to reach without leaning over. Lifestyle Do not use any products that contain nicotine or tobacco. These products include cigarettes, chewing tobacco, and vaping devices, such as e-cigarettes. If you need help quitting, ask your health careprovider. Try to reduce your stress level by using methods such as yoga or meditation. Talk with your health care provider if you need help to manage your stress. General instructions Watch your dizziness for any changes. Take txal-dvz-amphmlw and prescription medicines only as told by your health care provider. Talk with your health care provider if you think that your dizziness is caused by a medicine that you are taking. Tell a friend or a family member that you are feeling dizzy. If he or she notices any changes in your behavior, have this person call your health care provider. Keep all follow-up visits. This is important. Contact a health care provider if: Your dizziness does not go away or you have new symptoms. Your dizziness or light-headedness gets worse. You feel nauseous. You have reduced hearing. You have a fever. You have neck pain or a stiff neck. Your dizziness leads to an injury or a fall. Get help right away if: You vomit or have diarrhea and are unable to eat or drink anything. You have problems talking, walking, swallowing, or using your arms, hands, or legs. You feel generally weak. You have any bleeding. You are not thinking clearly or you have trouble forming sentences. It may take a friend or family member to notice this. You have chest pain, abdominal pain, shortness of breath, or sweating. Your vision changes or you develop a severe headache. These symptoms may represent a serious problem that is an emergency. Do not wait to see if the symptoms will go away. Get medical help right away. Call your local emergency services (911 in the [place] Do not drive yourself to the hospital. Summary Dizziness is a feeling of unsteadiness or light-headedness. This condition can be caused by a number of things, including medicines, dehydration, or illness. Anyone can become dizzy, but dizziness is more common in older adults. Drink enough fluid to keep your urine pale yellow. Do not drink alcohol. Avoid making quick movements if you feel dizzy. Monitor your dizziness for any changes. This information is not intended to replace advice given to you by your health care provider. Make sure you discuss any questions you have with your health care provider. Document Revised: 04/28/2021 Document Reviewed: 04/28/2021 [employer] Patient Education 2022 [employer]. Follow Up Care 04/11/2023 09:38:14 With:Raul DUMONT Address: [address] [facility] [facility] [place] [address]- [phone] Business (1) When:04/14/2023 12:22:08 Comments:Return to the emergency room if your dizziness recurs or any new symptoms. [facility]09-12-2023 Hospital Discharge instructions Patient Education 02/16/2023 12:02:27 Benign Prostatic Hyperplasia Benign Prostatic Hyperplasia Benign prostatic hyperplasia (BPH) is an enlarged prostate gland that is caused by the normal agingprocess. The prostate may get bigger as a man gets older. The condition is not caused by cancer. The prostate is a walnut-sized gland that is involved in the production of semen. It is located in front of the rectum and below the bladder. The bladder stores urine. The urethra carries stored urine ou t of the body. An enlarged prostate can press on the urethra. This can make it harder to pass urine. The buildup of urine in the bladder can cause infection. Back pressure and infection may progress to bladder damage and kidney (renal) failure. What are the causes? This condition is part of the normal aging process. However, not all men develop problems from thiscondition. If the prostate enlarges away from the urethra, urine flow will not be blocked. If it enlarges toward the urethra and compresses it, there will be problems passing urine. What increases the risk? This condition is more likely to develop in men older than 50 years. What are the signs or symptoms? Symptoms of this condition include: Getting up often during the night to urinate. Needing to urinate frequently during the day. Difficulty starting urine flow. Decrease in size and strength of your urine stream. Leaking (dribbling) after urinating. Inability to pass urine. This needs immediate treatment. Inability to completely empty your bladder. Pain when you pass urine. This is more common if there is also an infection. Urinary tract infection (UTI). How is this diagnosed? This condition is diagnosed based on your medical history, a physical exam, and your symptoms. Tests will also be done, such as: A post-void bladder scan. This measures any amount of urine that may remain in your bladder after you finish urinating. A digital rectal exam. In a rectal exam, your health care provider checks your prostate by putting a lubricated, gloved finger into your rectum to feel the back of your prostate gland. This exam detects the size of your gland and any abnormal lumps or growths. An exam of your urine (urinalysis). A prostate specific antigen (PSA) screening. This is a blood test used to screen for prostate cancer. An ultrasound. This test uses sound waves to electronically produce a picture of your prostate gland. Your health care provider may refer you to a specialist in kidney and prostate diseases (urologist). How is this treated? Once symptoms begin, your health care provider will monitor your condition (active surveillance or watchful waiting). Treatment for this condition will depend on the severity of your condition. Treatment may include: Observation and yearly exams. This may be the only treatment needed if your condition and symptoms are mild. Medicines to relieve your symptoms, including: ?Medicines to shrink the prostate. ?Medicines to relax the muscle of the prostate. Surgery in severe cases. Surgery may include: ?Prostatectomy. In this procedure, the prostate tissue is removed completely through an open incision or with a laparoscope or robotics. ?Transurethral resection of the prostate (TURP). In this procedure, a tool is inserted through the opening at the tip of the penis (urethra). It is used to cut away tissue of the inner core of the prostate. The pieces are removed through the same opening of the penis. This removes the blockage. ?Transurethral incision (TUIP). In this procedure, small cuts are made in the prostate. This lessens the prostate's pressure on the urethra. ?Transurethral microwave thermotherapy (TUMT). This procedure uses microwaves to create heat. The heat destroys and removes a small amount of prostate tissue. ?Transurethral needle ablation (TUNA). This procedure uses radio frequencies to destroy and remove a small amount of prostate tissue. ?Interstitial laser coagulation (ILC). This procedure uses a laser to destroy and remove a small amount of prostate tissue. ?Transurethral electrovaporization (TUVP). This procedure uses electrodes to destroy and remove a small amount of prostate tissue. ?Prostatic urethral lift. This procedure inserts an implant to push the lobes of the prostate away from the urethra. Follow these instructions at home: Take [id number] and prescription medicines only as told by your health care provider. Monitor your symptoms for any changes. Contact your health care provider with any changes. Avoid drinking large amounts of liquid before going to bed or out in public. Avoid or reduce how much caffeine or alcohol you drink. Give yourself time when you urinate. Keep all follow-up visits. This is important. Contact a health care provider if: You have unexplained back pain. Your symptoms do not get better with treatment. You develop side effects from the medicine you are taking. Your urine becomes very dark or has a bad smell. Your lower abdomen becomes distended and you have trouble passing urine. Get help right away if: You have a fever or chills. You suddenly cannot urinate. You feel light-headed or very dizzy, or you faint. There are large amounts of blood or clots in your urine. Your urinary problems become hard to manage. You develop moderate to severe low back or flank pain. The flank is the side of your body between the ribs and the hip. These symptoms may be an emergency. Get help right away. Call 911. Do not wait to see if the symptoms will go away. Do not drive yourself to the hospital. Summary Benign prostatic hyperplasia (BPH) is an enlarged prostate that is caused by the normal aging process. It is not caused by cancer. An enlarged prostate can press on the urethra. This can make it hard to pass urine. This condition is more likely to develop in men older than 50 years. Get help right away if you suddenly cannot urinate. This information is not intended to replace advice given to you by your health care provider. Make sure you discuss any questions you have with your health care provider. Document Revised: 12/10/2021 Document Reviewed: 12/10/2021 [employer] Patient Education 2022 [employer] Follow Up Care 12/29/2022 10:02:22 With:IVONNE GRANT PA-C, URL Address: [address] [place] [place] [address] When:Within 1 Year(s) Comments:w/PSA [facility] Mehreen 09-11-2023 Note[facility]-2023 NoteUniversity [facility]08-23-2023 Note[facility] 01-27-2023 History of Present illness Narrative* Chaitanya Watkins DPM - 01/27/2023 10:46 AM EDT SUBJECTIVE: The patient presents today with his present with discomfort in most of his toenails that are markedly elongated that he is unable to get down to cut himself. PHYSICAL EXAMINATION: Neurovascular Status: Apparently unchanged, bilateral. No appreciable substantial edema or erythema. Pedal pulse and capillary refill are within normal. Dermatologic: The patient has elongated, thickened, yellow, brittle, deformed, and crumbly toenailsgreater than 5. He has some incurvation and sharpness of the distal lateral corner of the hallux nails. There are no appreciable signs of periungual abscess, infection, or cellulitis. Ortho-Musculoskeletal: There is discomfort with palpation especially upon debridement of greater than 5 nails. DIAGNOSES: Onychomycosis greater than 5 with pain greater than 5 for this visit PLAN: Discussed results of clinical examination with the patient in detail along with treatment options. The patient was alert and oriented x3 in no apparent acute distress. I debrided toenails 1-10 in length and thickness with a nail splitter, resected the offending corners of the hallux nails. I recommend follow-up in approximately 3 to 4 months for the same to maintain comfort and reduce risk of complications Documentation from my notes of previous visit of 10/20/22 was copied and pasted, documentation has been reviewed and edited as necessary and is current for today. Diego WilliamsonPAdrianneM. documented in this encounterCommunity [facility] Hospital08-21-2023 Miscellaneous Notes* Telephone Encounter - Savanna Zhang MD - 01/25/2023 12:25 PM EDT Patient called for input on HR 90s, sinus on ECG, no significant sxs, has follow up appt in feb. documented in this encounterCommunity Memorial Hospital08-10-2023 NoteHNO ID: [id number] Author: Barbara Warner APRN.BENJAMIN, RAMÓN Service: ? Author Type: Nurse Practitioner Type: Progress Notes Filed: 01/14/2023 1:50 PM Note Text: [facility] Department of Cardiovascular Medicine SECTION OF CLINICAL CARDIOLOGY OUTPATIENT VISIT DATE January 14, 2023 OUTPATIENT VISIT TYPE ESTABLISHED PRIMARY CARE PHYSICIAN: Raul Dumont [address] [place] [address] REFERRING PHYSICIAN: Hugo Solano [address] [facility] [address] CHIEF COMPLAINT: Established Patient and Hospital Follow Up HISTORY OF PRESENT ILLNESS: Mr. Franco is a 82 year old male who presents today for a cardiovascular medicine follow-up visit. Had AVR and MVR at on 12/04/2022. Has been feeling well since surgery. Reports he stopped taking Toprol XL as she thought he was only to take for 6 weeks. We discussed importance of HR control following surgery. Resting HR today is in the 90s. He denies chest pain, shortness of breath, orthopnea, cough, edema, palpitations, PND, lightheadedness or syncope. PAST CARDIAC HISTORY: See detailed impression for past cardiac history. PAST MEDICAL HISTORY Diagnosis Date Ankle instability left Aortic stenosis Asthma exercise Atrial fibrillation (HCC) BPH (benign prostatic hyperplasia) Bronchitis Cancer (HCC) basal cell Cardiac insufficiency following cardiac surgery 12/04/2022 Cardiomegaly 09/22/2012 borderline Dyslipidemia [place] (hard of hearing) Hypertension Mitral regurgitation Pinched nerve in neck Spinal stenosis Stroke (HCC) 06/07/2007 TIA (transient ischemic attack) 06/07/2007 [place] PAST SURGICAL HISTORY Procedure Laterality Date ATRIAL FIBRILLATION/FLUTTER ABLATION 2001,2003, 2012 - Radiofrequency ablation for atrial fibrillation BACK SURGERY HX Disc Surgery FOOT/TOES SURGERY PROC UNLISTED 02/05/2010 Performed by CHAITANYA WATKINS at [facility] GASTROCNEMIUS RECESSION 02/05/2010 Performed by CHAITANYA WATKINS at [facility] PAST SURGICAL HISTORY OF 2006 endoscopic plantar fasciotomy PAST SURGICAL HISTORY OF 04/24/2013 ablation SKIN SURGERY HX 2020 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 3 cm with a 5 cm complex wound closure ([facility]) TUR CRYOSURG REM OF PROSTATE 2007 Photoselective vaporization of the prostate with Greenlight HPS ([facility]) SOCIAL HISTORY Social History Tobacco Use Smoking status: Never Smokeless tobacco: Never Substance Use Topics Alcohol use: No Drug use: No FAMILY HISTORY Problem Relation Age of Onset Ischemic Heart Disease Father 52 [place] other (cancer, lung) Father 56 yrs Asthma Sister Asthma Grandchild No Family History Other colon cancer No Family History Other colon polyps other (heart disease) Brother open heart surgery ALLERGIES: ALLERGIES Allergen Reactions Grass Pollen Unknown Nasonex [Mometasone] Other: See Comments Made him feel very hot and very jittery and shakey. Prednisone Mental Status Change Sulfa (Sulfonamide * Unknown MEDICATIONS: atorvastatin (LIPITOR) 10 mg tablet TAKE 1 TABLET BY MOUTH EVERY DAY XARELTO 20 mg tablet TAKE 1 TABLET BY MOUTH ONCE DAILY. PLEASE CALL THE OFFICE FOR AN APPOINTMENT. finasteride (PROSCAR) 5 mg tablet escitalopram oxalate (LEXAPRO) 5 mg tablet TAKE 1 TABLET BY MOUTH ONE TIME A DAY pantoprazole DR (PROTONIX) 40 mg tablet Take 1 tablet by mouth once daily. metoprolol succinate ER (TOPROL XL) 25 mg 24 hr tablet Take 1 tablet by mouth once daily. magnesium hydroxide (MOM) 400 mg/5 mL suspension Take 30 mL by mouth once daily as needed. docusate sodium (COLACE) 100 mg capsule Take 1 capsule by mouth twice daily as needed for constipation. (Patient not taking: Reported on 01/14/2023) polyethylene glycol 3350 (MIRALAX) 17 gram/dose powder Take 17 g by mouth once daily. Dissolve dose in 4 - 8 ounces of liquid and take as directed. acetaminophen (TYLENOL) 325 mg tablet Take 2 tablets by mouth every 4 hours as needed (post-op pain). (Patient not taking: Reported on 01/14/2023) aspirin 81 mg chewable tablet Take 1 tablet by mouth once daily. senna-docusate (SENNA-S) 8.6-50 mg per tablet Take 1 tablet by mouth twice daily. Continue while as needed thereafter for mild post-op constipation AND stool softening. furosemide (LASIX) 20 mg tablet Take 1 tablet by mouth once daily for 7 days. mag [id number] rt xt 500-3,000-150 mg-unit-mg tab Take by mouth. (Patient not taking: Reported on 12/16/2022) lysine 500 mg tab Take by mouth. (Patient not taking: Reported on 12/16/2022) Vitamin E Acetate, Bulk, 125 unit/mL liqd (Patient not taking: Reported on 12/16/2022) ascorbic acid/bioflavonoids (MONIQUE C ORAL) Take by mouth once daily. (Patient not taking: Reported on 12/16/2022) UBIDECARENONE (CO Q-10 ORAL) Take by mouth. Patient unsure of dosage Chew (more content not included)...[facility]08-10-[facility]23 History of Present illness Narrative* Barbara Warner APRN.POISER, DNP - 01/14/2023 1:13 PM EDT Images from the original note were not included. [facility] Department of Cardiovascular Medicine SECTION OF CLINICAL CARDIOLOGY OUTPATIENT VISIT DATE January 14, 2023 OUTPATIENT VISIT TYPE ESTABLISHED PRIMARY CARE PHYSICIAN: Raul Dumont [address] [place] [address] REFERRING PHYSICIAN: Hugo Solano [address] [facility] [address] CHIEF COMPLAINT: Established Patient and Hospital Follow Up HISTORY OF PRESENT ILLNESS: Mr. Franco is a 82 year old male who presents today for a cardiovascular medicine follow-up visit. Had AVR and MVR at on 12/04/2022. Has been feeling well since surgery. Reports he stopped taking Toprol XL as she thought he was only to take for 6 weeks. We discussed importance of HR control following surgery. Resting HR today is in the 90s. He denies chest pain, shortness of breath, orthopnea, cough, edema, palpitations, PND, lightheadedness or syncope. PAST CARDIAC HISTORY: See detailed impression for past cardiac history. PAST MEDICAL HISTORY Diagnosis Date Ankle instability left Aortic stenosis Asthma exercise Atrial fibrillation (HCC) BPH (benign prostatic hyperplasia) Bronchitis Cancer (HCC) basal cell Cardiac insufficiency following cardiac surgery 12/04/2022 Cardiomegaly 09/22/2012 borderline Dyslipidemia [place] (hard of hearing) Hypertension Mitral regurgitation Pinched nerve in neck Spinal stenosis Stroke (HCC) 06/07/2007 TIA (transient ischemic attack) 06/07/2007 [place] PAST SURGICAL HISTORY Procedure Laterality Date ATRIAL FIBRILLATION/FLUTTER ABLATION 2001,2003, 2012 - Radiofrequency ablation for atrial fibrillation BACK SURGERY HX Disc Surgery FOOT/TOES SURGERY PROC UNLISTED 02/05/2010 Performed by CHAITANYA WATKINS at [facility] [place] GASTROCNEMIUS RECESSION 02/05/2010 Performed by CHAITANYA WATKINS at [facility] PAST SURGICAL HISTORY OF 2005 endoscopic plantar fasciotomy PAST SURGICAL HISTORY OF 04/24/2013 ablation SKIN SURGERY HX 2020 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 3 cm with a 5 cm complex wound closure ([facility]) TUR CRYOSURG REM OF PROSTATE 2006 Photoselective vaporization of the prostate with Greenlight HPS ([facility]) SOCIAL HISTORY Social History Tobacco Use Smoking status: Never Smokeless tobacco: Never Substance Use Topics Alcohol use: No Drug use: No FAMILY HISTORY Problem Relation Age of Onset Ischemic Heart Disease Father 52 [place] other (cancer, lung) Father 56 yrs Asthma Sister Asthma Grandchild No Family History Other colon cancer No Family History Other colon polyps other (heart disease) Brother open heart surgery ALLERGIES: ALLERGIES Allergen Reactions Grass Pollen Unknown Nasonex [Mometasone] Other: See Comments Made him feel very hot and very jittery and shakey. Prednisone Mental Status Change Sulfa (Sulfonamide * Unknown MEDICATIONS: atorvastatin (LIPITOR) 10 mg tablet TAKE 1 TABLET BY MOUTH EVERY DAY XARELTO 20 mg tablet TAKE 1 TABLET BY MOUTH ONCE DAILY. PLEASE CALL THE OFFICE FOR AN APPOINTMENT. finasteride (PROSCAR) 5 mg tablet escitalopram oxalate (LEXAPRO) 5 mg tablet TAKE 1 TABLET BY MOUTH ONE TIME A DAY pantoprazole DR (PROTONIX) 40 mg tablet Take 1 tablet by mouth once daily. metoprolol succinate ER (TOPROL XL) 25 mg 24 hr tablet Take 1 tablet by mouth once daily. magnesium hydroxide (MOM) 400 mg/5 mL suspension Take 30 mL by mouth once daily as needed. docusate sodium (COLACE) 100 mg capsule Take 1 capsule by mouth twice daily as needed for constipation. (Patient not taking: Reported on 01/14/2023) polyethylene glycol 3350 (MIRALAX) 17 gram/dose powder Take 17 g by mouth once daily. Dissolve dosein 4 - 8 ounces of liquid and take as directed. acetaminophen (TYLENOL) 325 mg tablet Take 2 tablets by mouth every 4 hours as needed (post-op pain). (Patient not taking: Reported on 01/14/2023) aspirin 81 mg chewable tablet Take 1 tablet by mouth once daily. senna-docusate (SENNA-S) 8.6-50 mg per tablet Take 1 tablet by mouth twice daily. Continue while asneeded thereafter for mild post-op constipation & stool softening. furosemide (LASIX) 20 mg tablet Take 1 tablet by mouth once daily for 7 days. mag [id number] rt xt 500-3,000-150 mg-unit-mg tab Take by mouth. (Patient not taking: Reported on 12/16/2022) lysine 500 mg tab Take by mouth. (Patient not taking: Reported on 12/16/2022) Vitamin E Acetate, Bulk, 125 unit/mL liqd (Patient not taking: Reported on 12/16/2022) ascorbic acid/bioflavonoids (MONIQUE C ORAL) Take by mouth once daily. (Patient not taking: Reported on 12/16/2022) UBIDECARENONE (CO Q-10 ORAL) Take by mouth. Patient unsure of dosage Chews two gummies a day (Patient not taking: Reported on 12/16/2022) MULTIVITAMIN ORAL Take by mouth once daily. (Patient not taking: Reported on 01/14/2023) REVIEW OF SYSTEMS: All systems reviewed and are negative except for HPI. PHYSICAL EXAMINATION: BP 120/74 Pulse 95 Ht 177.8 cm (5' 10 ) Wt 90.3 kg (199 lb) BMI 28.55 kg/m General: in no acute distress. Skin: No cyanosis. Neck: No jugular venous distention Lungs: Clear to auscultation bilaterally, no wheezing or rhonchi. Heart: Regular rhythm, Abdomen: Soft, nontender, bowel sounds normal Extremities: No peripheral edema . Neuro: Oriented to person, place and time, alert, cooperative CARDIOVASCULAR MEDICINE TESTING: Electrocardiogram: Last ECHO Result Conclusion ECHO Collected: 12/09/2022 10:55 AM (Final result) Impression: CONCLUSIONS: - Exam indication: S/p AVR, MVr and PFO closure - The left ventricle is normal in size. Left ventricular systolic function is normal. EF = 60 5% (visual est.) Left ventricular diastolic function was not evaluated due to mitral valve surgery. - Post mitral valve repair. Cline Mitral Valve Annuloplasty Ring (size #35). There is trace mitral valve regurgitation. The peak gradient is 6 mmHg and the mean gradient is 3 mmHg. - Epic prosthetic aortic valve (size #25). There is no aortic valve regurgitation. The peak gradient is 15 mmHg, the mean gradient is 10 mmHg and the dimensionless valve index is 0.55. AVR appears well seated with no regurgitation. - Agitated saline study was negative for intracardiac shunting (clips 77 & 80). - Exam was [facility] Similar post-op findings. * * * Final * * * Last CELIA Result Conclusion ECHO TRANSESOPHAGEAL Collected: 10/19/2022 1:24 PM (Final result) Impression: CONCLUSIONS: - Exam indication: Initial evaluation valvular heart disease - The left ventricle is normal in size. Left ventricular systolic function is normal. EF = 55 5% (visual est.) - The right ventricle is normal in size. - The left atrial cavity is moderately dilated. - The right atrial cavity is moderate/severely dilated. - There is severe eccentric (3+ to 4+) holosystolic mitral valve regurgitation due to P2 prolapse and flail tip. Anteriorly directed, wall hugging MR jet. No distinct systolic flow reversal in left pulmonary vein. - Trileaflet aortic valve with at least moderate leaflet calcification. Moderate visual , ASHUTOSH by planimetry is ~1.1 cm2. Inadequate gradients on transgastric views. Trivial concomitant aortic regurgitation. - There is no patent foramen ovale. - Exam was compared with the prior echocardiographic exam performed on 10.05.2022([facility]) MR mechanism established. appears at least moderate by planimetry. * * * Final * * * Last EKG Result Conclusion EKG Collected: 01/14/2023 1:15 PM (Preliminary result) Impression: NORMAL SINUS RHYTHM LEFT AXIS DEVIATION ABNORMAL ECG Last CT Result Conclusion CTA CHEST (GATED) W IVCON Exam End: 12/01/2022 2:18 PM (Final result) Impression: IMPRESSION: 1. The thoracic aorta is normal in course and caliber with mild calcifications. There is no acute aortic pathology. 2. Pericardial thickening and calcification most prominent anteriorly and posteriorly adjacent to the AV groove. 3. The pulmonary arteries are enlarged centrally suggesting PAH. 4. Proximity of the cardiovascular structures to the sternum: The left brachiocephalic vein lies in close proximity to the posterior aspect of the manubrium at 1cm, The RV is adjacent to the inferior retrosternum. Graduate Intern: PSCHarvey Transcribe Date/Time: Dec 01 2022 5:15P Dictated by : MARYLU CASTILLO DO This examination was interpreted and the report reviewed and electronically signed by: MARYLU CASTILLO DO on Dec 01 2022 5:58PM EST IMPRESSION: Severe valve disease, s/p AVR (#25 Epic), MVr (#35 Cline, 2x neochords to P2), bovine pericardial patch closure of RA. PFO closure on 12/04/[address] Nieves. Chronic diastolic heart failure, ECHO 12/2022: EF 60%, appears well compensated. Normal coronaries by [facility] 11/2022, angina free, stable. Paroxsymal atrial fib, on Xarelto. NSR today in high 90s. Reports he is no longer taking Toprol XL as prescribed on discharge as he thought he was only to take for 6 weeks. HTN, stable. Dyslipidemia, on statin Hx TIA/CVA PLAN AND RECOMMENDATIONS: Reports he has not been taking BB. Suggested to resume Toprol XL at 25 mg Daily for better HR control Monitor for new symptoms Follow up with Dr. Spaulding as scheduled I personally interviewed, confirmed and edited the above information if obtained by others. CONTACT INFORMATION: Barbara Warner APRN.RAMÓN ALEXANDER [facility], [address] [place] [address] documented in this encounterCommunity Memorial Hospital08-02-2023 NoteUniversity [facility]als [facility]08-02-2023 History of Present illness Narrative* Zari Cobb RN - 01/06/2023 10:12 AM EDT QOL Call Tracking Documentation Follow-Up Type: Phone Call Call Attempt: 1st Attempt Call Status: Patient Refused (Requested to be removed from QoL Dashboard) documented in this encounterCommunity Memorial Hospital07-12-2023 History of Present illness Narrative* Mary Jo Olvera, MEDICAL DOCTOR MD/MEDICAL DIRECTOR.POISER - 12/16/2022 1:00 PM EDT Images from the original note were not included. [facility] Department of Cardiovascular Medicine DEPARTMENT OF CARDIAC SURGERY OUTPATIENT VISIT DATE December 16, 2022 OUTPATIENT VISIT TYPE POSTOPERATIVE Jordi Franco is a 82 year old male who presents who is here for post operative follow up HPI: S/P on 12/04/2022: AVR (#25 Epic), MVr (#35 Cline, 2x neochords to P2), bovine pericardial patch closure of RA. PFO closure Discharged on 12/09/22 PAST MEDICAL HISTORY Diagnosis Date Ankle instability left Aortic stenosis Asthma exercise Atrial fibrillation (HCC) BPH (benign prostatic hyperplasia) Bronchitis Cancer (HCC) basal cell Cardiac insufficiency following cardiac surgery 12/04/2022 Cardiomegaly 09/22/2012 borderline Dyslipidemia [place] (hard of hearing) Hypertension Mitral regurgitation Pinched nerve in neck Spinal stenosis Stroke (HCC) 06/07/2007 TIA (transient ischemic attack) 06/07/2007 [facility] PAST SURGICAL HISTORY Procedure Laterality Date ATRIAL FIBRILLATION/FLUTTER ABLATION 2001,2003, 2012 - Radiofrequency ablation for atrial fibrillation BACK SURGERY HX Disc Surgery FOOT/TOES SURGERY PROC UNLISTED 02/05/2010 Performed by CHAITANYA WATKINS at [facility] [place] GASTROCNEMIUS RECESSION 02/05/2010 Performed by CHAITANYA WATKINS at [facility] [place] PAST SURGICAL HISTORY OF 2006 endoscopic plantar fasciotomy PAST SURGICAL HISTORY OF 04/24/2013 ablation SKIN SURGERY HX 2020 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 3 cm with a 5 cm complex wound closure ([facility]) TUR CRYOSURG REM OF PROSTATE 2007 Photoselective vaporization of the prostate with Greenlight HPS ([facility]) ALLERGIES Allergen Reactions Grass Pollen Unknown Nasonex [Mometasone] Other: See Comments Made him feel very hot and very jittery and shakey. Prednisone Mental Status Change Sulfa (Sulfonamide * Unknown Current Outpatient Medications Medication Sig acetaminophen (TYLENOL) 325 mg tablet Take 2 tablets by mouth every 4 hours as needed (post-op pain). aspirin 81 mg chewable tablet Take 1 tablet by mouth once daily. metoprolol succinate ER (TOPROL XL) 50 mg 24 hr tablet Take 1 tablet by mouth twice daily. senna-docusate (SENNA-S) 8.6-50 mg per tablet Take 1 tablet by mouth twice daily. Continue while asneeded thereafter for mild post-op constipation & stool softening. furosemide (LASIX) 20 mg tablet Take 1 tablet by mouth once daily for 7 days. potassium chloride (K-TAB) 10 mEq tablet Take 1 tablet by mouth once daily for 7 days. atorvastatin (LIPITOR) 10 mg tablet TAKE 1 TABLET BY MOUTH EVERY DAY mag [id number] rt xt 500-3,000-150 mg-unit-mg tab Take by mouth. lysine 500 mg tab Take by mouth. Vitamin E Acetate, Bulk, 125 unit/mL liqd XARELTO 20 mg tablet TAKE 1 TABLET BY MOUTH ONCE DAILY. PLEASE CALL THE OFFICE FOR AN APPOINTMENT. finasteride (PROSCAR) 5 mg tablet escitalopram oxalate (LEXAPRO) 5 mg tablet TAKE 1 TABLET BY MOUTH ONE TIME A DAY ascorbic acid/bioflavonoids (MONIQUE C ORAL) Take by mouth once daily. pantoprazole DR (PROTONIX) 40 mg tablet Take 1 tablet by mouth once daily. UBIDECARENONE (CO Q-10 ORAL) Take by mouth. Patient unsure of dosage Chews two gummies a day MULTIVITAMIN ORAL Take by mouth once daily. No current facility-administered medications for this visit. Chief Complaints: Discharge Post Operative Course: Pain scale :Yes LOCATION: msi discomfort PAIN SCALE: 1 on a scale of 0-10 Appetite: appetite good Activity: Walking at least 5-10 minutes 3 times a day. using treadmill, asked to avoid treadmill for the next 4 weeks. Elimination: constipation has been a problem (had BM today ), urination is normal Sleep: difficulty staying asleep Mood: normal Incisions/Wounds: Not applicable Review of Systems: HEENT: Negative for fevers since discharge, chills, night sweats, blurry vision, hoarseness, and runny nose Cardiac: Denies significant problems, chest pain, orthopnea, and leg edema Respiratory: denies patient denies a history of any respiratory problems Musculoskeletal: No history of joint swelling, joint pain, or loss of range of motion. Neuro: Denies neurological complaints, headaches, dizziness, visual changes, paresthesia, neuropathy, focal weakness , or tremors Physical Exam: BP 102/72 Pulse 76 Temp 36.9 C (98.4 F) (Oral) Ht 177.8 cm (5' 10 ) Wt 87.8 kg (193 lb 9.6 oz) SpO2 97% BMI 27.78 kg/m Appearance: well groomed, white male, in no acute distress Neck: No neck vein distention Cardiac: regular S1, S2, No murmur, No rub Lungs: Clear breath sounds bilaterally with decreased air entry at the bases bilaterally Abdomen: soft, non tender, non-distended, Normal bowel sounds Extremities: No edema Sternum: stable, no click Sternotomy site: healing, clean, dry and intact, no cellulitis Wound: NA Procedures: N/A IMPRESSION & PLAN: 12/04/2022: AVR (#25 Epic), MVr (#35 Cline, 2x neochords to P2), bovine pericardial patch closure ofRA. PFO closure CXR December 16, 2022 Image reviewed Final report Lungs and pleura: Left hemidiaphragm is mildly elevated. Blunted left CP angle may represent small effusion. No consolidation, overt edema, or pneumothorax. Calcified granulomas Labs December 16, 2022 Latest Reference Range & Units 12/16/22 13:19 Sodium 136 - 144 mmol/L 133 (L) Potassium 3.7 - 5.1 mmol/L 4.7 Chloride 97 - 105 mmol/L 97 CO2 22 - 30 mmol/L 27 BUN 9 - 24 mg/dL 13 Creatinine 0.73 - 1.22 mg/dL 1.03 (L): Data is abnormally low Latest Reference Range & Units 12/16/22 13:19 WBC 3.70 - 11.00 k/uL 9.75 RBC 4.20 - 6.00 m/uL 3.48 (L) Hemoglobin 13.0 - 17.0 g/dL 10.4 (L) Hematocrit 39.0 - 51.0 % 33.5 (L) Platelet Count 150 - 400 k/uL 370 (L): Data is abnormally low Atrial Fibrillation pre op Hx A fib. managed with Xarelto. Post-op maintaining SR with 1st AVB. Tolerating BB, Resume Xarelto at discharge, EKG today NSR EKG December 16, 2022 Diagnosis: NORMAL SINUS RHYTHM LEFT AXIS DEVIATION Vent. rate 80 BPM TN interval 204 ms QRS duration 98 ms QT/QTc 386/445 ms P-R-T axes 0 -39 29 HTN - pre op Hx of HTN with home meds losartan - pt discharged on toprol, losartan, lasix - BP stable 102/70 FVO / Hyponatremia - post op issue requiring diuretics and d/c on lasix. Na 133. - wt +ve 2 lbs from d/c wt, no edema, CXR stable and improving, lung sounds diminished bases. , O2 sat wnl - reinforced low sodium diet, 2L fluid restriction, daily wts, use incentive spirometer every hr while awake, elevate legs, wear compression stockings, continue to increase ambulation Constipation pt had difficulty with constipation. using miralax, colace, senna and enema. pt had BM this am. (first BM since surgery) will continue regimen with weaning of products prn. CXR noting bowel gas pattern. abd soft and nondisteded. passing flatus, BS active x 4. denies nausea, vomiting, reflux, abd pain Summary: Follow up with PCP next week Follow up with cabbage salter in 4-6 weeks. Call [facility] OPD with any issues, concerns or worsening symptoms. Post op care and discharge orders reviewed with the patient- all questions were answered. Surgical sites healing without complication Discussed new medications, dosage, route of administration and side effects Reviewed walking program at home Reviewed diet guidelines for recovery from surgery Return to the clinic prn with signs or symptoms of infection, fevers, SOB, or pleural effusion SBE prophylaxis reviewed Discussed wound care Mary Jo Olvera APRN.POISER documented in this encounterCommunity [facility]07-12-2023 NoteUniversity [facility]07-12-2023 History of Present illness Narrative* Rhonda Jarrell, RT(R) - 12/16/2022 12:15 PM EDT Radiology Service Progress Note PATIENT NAME: Jordi Franco DATE OF SERVICE: December 16, 2022 TIME: 12:53 PM PATIENT IDENTITY VERIFICATION COMPLETED USING TWO (2) IDENTIFIERS: Name and Date of confirmedby patient verbally. FALL SCREENING: Has the patient had 2 falls in the last year or 1 fall with injury or currently using an Ambulatory Assistive Device (Walker, Cane, Wheelchair, Crutches, etc.)? No PATIENT GENDER DATA: Male PATIENT RELEVANT IMPLANT DATA REVIEWED: Not Applicable RADIOLOGY DEPARTMENT: General X-ray: Exam(s) Completed: Chest X-Ray PERIPHERAL IV DATA: Not applicable SIGNED BY: RT Ellyn(Silvio) December 16, 2022 12:53 PM documented in this encounterCommunity Memorial Hospital07-12-2023 NoteUniversity [facility]als [facility]07-07-2023 Miscellaneous Notes* Telephone Encounter - Monique Vera RN - 12/11/2022 8:13 AM EDT [facility] Contact Center Inbound Phone Encounter DATE of SERVICE: 12/11/2022 TIME of SERVICE: 8:13 AM Status: Non-urgent, needs attention Service/Provider: Cardiac Surgery Brain Nieves M.D. Reason for call: Medication Issue/Question/Constipation Contact information: Sabiha (daughter) [phone] cell Resolution: Other [id number] Charge POISER Jessica Rivera CNP Comments: Daughter calling TI line. D/c 12/09/22. Constipation going on day 6. Pt walking, using prune juice and senna. Eating fruits/vegetables, bloated and not passing gas. Currently on Tylenol prnfor pain control. Asking for additional remedies. Reviewed call with Jessica Rivera CNP. Pt can use an Enema, Mirilax BID, Colace, MOM, Prune Juice. Called daughter back and information relayed. Encouraged walking and to call with any further questions. Monique Vera RN Date of Resolution: 12/11/2022 Time of Resolution 8:13 AM documented in this encounterCommunity [facility] Hospital07-06-2023 Miscellaneous Notes* Telephone Encounter - Mary Carmen Meier RN - 12/10/2022 11:56 AM EDT Called patient after recent discharge unable to leave voice message. documented in this encounterCommunity [facility] Hospital07-05-2023 NoteUniversity [facility]07-05-2023 NoteUniversity [facility]07-04-2023 NoteUniversity [facility]07-03-2023 NoteUniversity [facility]07-03-2023 Note [facility]07-03-2023 Note[facility]07-02-2023 History of Past illness Narrative* Problem Noted Date Resolved Date Acute blood loss anemia 12/06/2022 12/08/19 Overview: History: postop Atelectasis 12/05/2022 12/07/2022 Overview: History: postop Volume overload 12/05/2022 12/07/2022 Overview: History: postop Encounter for preoperative a nesthesiology assessment for cardiac surgery 12/04/2022 12/06/2022 On mechanically assisted ventilation 12/04/2022 12/05/2022 Cardiac insufficiency following cardiac surgery 12/04/2022 12/06/2022 Overview: Postoperative pain 12/04/2022 12/07/2022 Overview: History: postop Stress hyperglycemia 12/04/2022 12/07/2022 Overview: History: postop documented as of this encounter (statuses as of 12/10/2022) [facility] of Past illness Narrative* Problem Noted Date Resolved Date Acute blood loss anemia 12/06/2022 12/08/19 Overview: History: postop Atelectasis 12/05/2022 12/07/2022 Overview: History: postop Volume overload 12/05/2022 12/07/2022 Overview: History: postop Encounter for preoperative a nesthesiology assessment for cardiac surgery 12/04/2022 12/06/2022 On mechanically assisted ventilation 12/04/2022 12/05/2022 Cardiac insufficiency following cardiac surgery 12/04/2022 12/06/2022 Overview: Postoperative pain 12/04/2022 12/07/2022 Overview: History: postop Stress hyperglycemia 12/04/2022 12/07/2022 Overview: History: postop documented as of this encounter (statuses as of 12/11/2022) [facility] of Past illness Narrative* Problem Noted Date Diagnosed Date Resolved Date Acute blood loss anemia 12/06/2022 07/0 08/2022 Overview: History: postop Atelectasis 12/05/2022 12/07/2022 Overview: History: postop Volume overload 12/05/2022 12/07/2022 Overview: History: postop Encounter for preoperative a nesthesiology assessment for cardiac surgery 12/04/2022 On mechanically assisted ventilation 12/04/2022 12/05/2022 Cardiac insufficiency follow ing cardiac surgery 12/04/2022 12/06/2022 Overview: Postoperative pain 12/04/2022 Overview: History: postop Stress hyperglycemia 12/04/2022 07/03/2 023 Overview: History: postop documented as of this encounter (statuses as of 12/17/2022) [facility] of Past illness Narrative* Problem Noted Date Diagnosed Date Resolved Date Acute blood loss anemia 12/06/2022 07/0 08/2022 Overview: History: postop Atelectasis 12/05/2022 12/07/2022 Overview: History: postop Volume overload 12/05/2022 12/07/2022 Overview: History: postop Encounter for preoperative a nesthesiology assessment for cardiac surgery 12/04/2022 On mechanically assisted ventilation 12/04/2022 12/05/2022 Cardiac insufficiency follow ing cardiac surgery 12/04/2022 12/06/2022 Overview: Postoperative pain 12/04/2022 Overview: History: postop Stress hyperglycemia 12/04/2022 07// 023 Overview: History: postop documented as of this encounter (statuses as of 12/18/2022) [facility] of Past illness Narrative* Problem Noted Date Diagnosed Date Resolved Date Acute blood loss anemia 12/06/2022 07/0 08/2022 Overview: History: postop Atelectasis 12/05/2022 12/07/2022 Overview: History: postop Volume overload 12/05/2022 12/07/2022 Overview: History: postop Encounter for preoperative a nesthesiology assessment for cardiac surgery 12/04/2022 On mechanically assisted ventilation 12/04/2022 12/05/2022 Cardiac insufficiency follow ing cardiac surgery 12/04/2022 12/06/2022 Overview: Postoperative pain 12/04/2022 Overview: History: postop Stress hyperglycemia 12/04/202212/07/ 023 Overview: History: postop documented as of this encounter (statuses as of 01/06/2023) [facility] of Past illness Narrative* Problem Noted Date Diagnosed Date Resolved Date Acute blood loss anemia 12/06/2022 07/0 08/2022 Overview: History: postop Atelectasis 12/05/2022 12/07/2022 Overview: History: postop Volume overload 12/05/2022 12/07/2022 Overview: History: postop Encounter for preoperative a nesthesiology assessment for cardiac surgery 12/04/2022 On mechanically assisted ventilation 12/04/2022 12/05/2022 Cardiac insufficiency follow ing cardiac surgery 12/04/2022 12/06/2022 Overview: Postoperative pain 12/04/2022 Overview: History: postop Stress hyperglycemia 12/04/2022 023 Overview: History: postop Elevated blood pressure (not hypertension) 02/26/2014 01/14/2023 documented as of this encounter (statuses as of 01/14/2023) [facility] Past illness Narrative* Problem Noted Date Diagnosed Date Resolved Date Acute blood loss anemia 12/06/2022 07/0 08/2022 Overview: History: postop Atelectasis 12/05/2022 12/07/2022 Overview: History: postop Volume overload 12/05/2022 12/07/2022 Overview: History: postop Encounter for preoperative a nesthesiology assessment for cardiac surgery 12/04/2022 On mechanically assisted ventilation 12/04/2022 12/05/2022 Cardiac insufficiency follow ing cardiac surgery 12/04/2022 12/06/2022 Overview: Postoperative pain 12/04/2022 Overview: History: postop Stress hyperglycemia 12/04/202212/07/ 023 Overview: History: postop Elevated blood pressure (not hypertension) 02/26/2014 01/14/2023 documented as of this encounter (statuses as of 01/25/2023) [facility] Past illness Narrative* Problem Noted Date Diagnosed Date Resolved Date Acute blood loss anemia 12/06/2022 07/0 08/2022 Overview: History: postop Atelectasis 12/05/2022 12/07/2022 Overview: History: postop Volume overload 12/05/2022 12/07/2022 Overview: History: postop Encounter for preoperative a nesthesiology assessment for cardiac surgery 12/04/2022 On mechanically assisted ventilation 12/04/2022 12/05/2022 Cardiac insufficiency follow ing cardiac surgery 12/04/2022 12/06/2022 Overview: Postoperative pain 12/04/2022 Overview: History: postop Stress hyperglycemia 12/04/2022 023 Overview: History: postop Elevated blood pressure (not hypertension) 02/26/2014 01/14/2023 documented as of this encounter (statuses as of 01/27/2023) [facility] Narrative* Problem Noted Date Diagnosed Date Resolved Date Acute blood loss anemia 12/06/2022 07/0 08/2022 Overview: History: postop Atelectasis 12/05/2022 12/07/2022 Overview: History: postop Volume overload 12/05/2022 12/07/2022 Overview: History: postop Encounter for preoperative a nesthesiology assessment for cardiac surgery 12/04/2022 3 On mechanically assisted ventilation 12/04/2022 12/05/2022 Cardiac insufficiency follow ing cardiac surgery 12/04/2022 12/06/2022 Overview: Postoperative pain 12/04/2022 Overview: History: postop Stress hyperglycemia 12/04/2022 023 Overview: History: postop Elevated blood pressure (not hypertension) 02/26/2014 01/14/2023 documented as of this encounter (statuses as of 05/05/2023) [facility] Past illness Narrative* Problem Noted Date Diagnosed Date Resolved Date Acute blood loss anemia 12/06/2022 07/0 08/2022 Overview: History: postop Atelectasis 12/05/2022 12/07/2022 Overview: History: postop Volume overload 12/05/2022 12/07/2022 Overview: History: postop Encounter for preoperative a nesthesiology assessment for cardiac surgery 12/04/2022 3 On mechanically assisted ventilation 12/04/2022 12/05/2022 Cardiac insufficiency follow ing cardiac surgery 12/04/2022 12/06/2022 Overview: Postoperative pain 12/04/2022 Overview: History: postop Stress hyperglycemia 12/04/2022 023 Overview: History: postop Elevated blood pressure (not hypertension) 02/26/2014 01/14/2023 documented as of this encounter (statuses as of 05/12/2023) [facility] Past illness Narrative* Problem Noted Date Diagnosed Date Resolved Date Acute blood loss anemia 12/06/2022 07/0 08/2022 Overview: History: postop Atelectasis 12/05/2022 12/07/2022 Overview: History: postop Volume overload 12/05/2022 12/07/2022 Overview: History: postop Encounter for preoperative a nesthesiology assessment for cardiac surgery 12/04/2022 On mechanically assisted ventilation 12/04/2022 12/05/2022 Cardiac insufficiency follow ing cardiac surgery 12/04/2022 12/06/2022 Overview: Postoperative pain 12/04/2022 Overview: History: postop Stress hyperglycemia 12/04/2022 07/03/2 023 Overview: History: postop Elevated blood pressure (not hypertension) 02/26/2014 01/14/2023 documented as of this encounter (statuses as of 05/12/2023) [facility] Narrative* Problem Noted Date Diagnosed Date Resolved Date Acute blood loss anemia 12/06/2022 07/0 08/2022 Overview: History: postop Atelectasis 12/05/2022 12/07/2022 Overview: History: postop Volume overload 12/05/2022 12/07/2022 Overview: History: postop Encounter for preoperative a nesthesiology assessment for cardiac surgery 12/04/2022 On mechanically assisted ventilation 12/04/2022 12/05/2022 Cardiac insufficiency follow ing cardiac surgery 12/04/2022 12/06/2022 Overview: Postoperative pain 12/04/2022 Overview: History: postop Stress hyperglycemia 12/04/202212/07/ 023 Overview: History: postop Elevated blood pressure (not hypertension) 02/26/2014 01/14/2023 documented as of this encounter (statuses as of 07/09/2023) [facility] Narrative* Problem Noted Date Diagnosed Date Resolved Date Acute blood loss anemia 12/06/2022 07/0 08/2022 Overview: History: postop Atelectasis 12/05/2022 12/07/2022 Overview: History: postop Volume overload 12/05/2022 12/07/2022 Overview: History: postop Encounter for preoperative a nesthesiology assessment for cardiac surgery 12/04/2022 On mechanically assisted ventilation 12/04/2022 12/05/2022 Cardiac insufficiency follow ing cardiac surgery 12/04/2022 12/06/2022 Overview: Postoperative pain 12/04/2022 Overview: History: postop Stress hyperglycemia 12/04/202212/07/ 023 Overview: History: postop Elevated blood pressure (not hypertension) 02/26/2014 01/14/2023 documented as of this encounter (statuses as of 07/09/2023) [facility] Narrative* Problem Noted Date Diagnosed Date Resolved Date Acute blood loss anemia 12/06/2022 07/0 08/2022 Overview: History: postop Atelectasis 12/05/2022 12/07/2022 Overview: History: postop Volume overload 12/05/2022 12/07/2022 Overview: History: postop Encounter for preoperative a nesthesiology assessment for cardiac surgery 12/04/2022 3 On mechanically assisted ventilation 12/04/2022 12/05/2022 Cardiac insufficiency follow ing cardiac surgery 12/04/2022 12/06/2022 Overview: Postoperative pain 12/04/2022 Overview: History: postop Stress hyperglycemia 12/04/2022 023 Overview: History: postop Elevated blood pressure (not hypertension) 02/26/2014 01/14/2023 documented as of this encounter (statuses as of 07/13/2023) [facility] Narrative* Problem Noted Date Diagnosed Date Resolved Date Acute blood loss anemia 12/06/2022 07/0 08/2022 Overview: History: postop Atelectasis 12/05/2022 12/07/2022 Overview: History: postop Volume overload 12/05/2022 12/07/2022 Overview: History: postop Encounter for preoperative a nesthesiology assessment for cardiac surgery 12/04/2022 3 On mechanically assisted ventilation 12/04/2022 12/05/2022 Cardiac insufficiency follow ing cardiac surgery 12/04/2022 12/06/2022 Overview: Postoperative pain 12/04/2022 Overview: History: postop Stress hyperglycemia 12/04/2022 023 Overview: History: postop Elevated blood pressure (not hypertension) 02/26/2014 01/14/2023 documented as of this encounter (statuses as of 08/05/2023) [facility]07-[facility]-2023 Note [facility]07-01-2023 Note[facility]07-01-2023 Note[facility]06-30-2023 Note[facility] 12-04-2022 Note[facility]06-30-2023 Note[facility]06-30-2023 Note[facility]06-29-2023 Note[facility]06-29-2023 History of Present illness Narrative* Brain Nieves MD - 12/03/2022 1:51 PM EDT Images from the original note were not included. [facility] [place] DEPARTMENT OF CARDIAC SURGERY OUTPATIENT VISIT DATE December 03, 2022 OUTPATIENT VISIT SERVICE DATE: 12/03/2022 SERVICE TIME: 1:51 PM PCP: Raul Dumont [address] [place] [address] Referring Physician: Savanna Zhang [address] [facility] [address] [facility] [id number] Patient Type: New Visit to Determine Surgery: Yes HPI: Mr. Jordi Franco is a 82 year old male seen regarding candidacy for cardiac surgery. He is currently symptomatic and complains of dizziness, shortness of breath, and fatigue Comorbidities include advanced age, AF with previous ablation. I have personally reviewed and analyzed all recordsthat pertain to the patient's prior course in addition to the following studies: cardiac catheterization, CT scan, and echo. Last CT Result Conclusion CTA CHEST (GATED) W IVCON Exam End: 12/01/2022 2:18 PM (Final result) Impression: IMPRESSION: 1. The thoracic aorta is normal in course and caliber with mild calcifications. There is no acute aortic pathology. 2. Pericardial thickening and calcification most prominent anteriorly and posteriorly adjacent to the AV groove. 3. The pulmonary arteries are enlarged centrally suggesting PAH. 4. Proximity of the cardiovascular structures to the sternum: The left brachiocephalic vein lies in close proximity to the posterior aspect of the manubrium at 1cm, The RV is adjacent to the inferior retrosternum. Graduate Intern: ALESSIO Transcribe Date/Time: Dec 01 2022 5:15P Dictated by : MARYLU CASTILLO, DO This examination was interpreted and the report reviewed and electronically signed by: MARYLU CASTILLO DO on Dec 01 2022 5:58PM EST Last ECHO Result Conclusion ECHO Collected: 10/05/2022 8:19 AM (Final result) Impression: CONCLUSIONS: - Exam indication: Valvular heart disease - The left ventricle is normal in size. There is mild left ventricular hypertrophy. Left ventricular systolic function is normal. EF = 69 5% (2D biplane) Left ventricular diastolic function was not evaluated due to AF. No significant regional wall motion abnormality. - The right ventricle is dilated. Right ventricular systolic function is normal. - The visualized aorta is borderline dilated with a maximal dimension of 3.9 cm. - There is severe (3+ - 4+) holosystolic mitral valve regurgitation. Regurgitant orifice area (PISA) is 0.61 cm . Anteriorly directed, very eccentric MR jet. Mechanism likely P2 prolapse, cannot exclude flail segment. - There is paradoxical low flow, low gradient, moderately severe aortic valve stenosis caused by calcified valve and restricted opening. AV area is 0.87 cm (0.42 cm /m ) by continuity, VTI. The peak gradient is 44 mmHg, the mean gradient is 26 mmHg and the dimensionless valve index is 0.28. Previous peak and mean gradients of 48/25 mmHg. - Exam was compared with the prior CC echocardiographic exam performed on 02/19/2022. Progression of MR on current study. * * * Final * * * Impression: Atrial Fibrillation, Aortic Stenosis, and Mitral Insufficiency Plan: Operative: Full Sternotomy, AV Replacement, MV Replacement, MV Repair , and Left Atrial Appendage Clip Based on my evaluation he is a low risk for cardiac surgery. The risks, benefits and anticipated outcomes of the procedure, the risks and benefits of the alternatives to the procedure, and the roles and tasks of the personnel to be involved, were discussed with the patient, and the patient consents to the procedure and agrees to proceed. We discussed the possibility that there could be two patients undergoing surgery in two separate rooms (concurrent surgery) and that I would be present for the critical components of all operations. We also discussed that in an emergency situation, a qualified backup surgeon is available and in the rare event of such aserious situation, that colleague might take over the operation. These findings will be communicated back to the requesting physician via electronic medical record Brain Nieves MD documented in this encounterCommunity [facility] Hospital06-29-2023 NoteUniversity [facility]als [facility]06-29-2023 History of Present illness Narrative* Bindu Crisostomo APRN.CNP - 12/03/2022 11:09 AM EDT AMBULATORY PATIENT EDUCATION READINESS TO LEARN Cognitive Ability: Alert and oriented Motivation To Learn: Interested Family Support: High - Very involved in pt care Instruction Provided To: Patient & Family Patient Learns Best By: Multiple Methods Factors Affecting Learning: None Physical Limitations Affecting Learning: None LEARNING RESPONSE Diagnosis: / MR Education Topic: Pre-Op Open Heart Surgery Instructions Teaching Points: Logistics / Protocols /Complication Prevention Instruction/Supplemental Materials: Cardiac Surgery Information Binder, Individual Instruction Patient/Family Response: Well prepared Follow up plan: Patient/Family to call [facility] with any further questions Referral (Recommendation): None Teach completed, topic: Bactroban instructions given documented in this encounterCommunity Memorial Hospital06-29-2023 NoteUniversity [facility]als [facility]06-29-2023 History of Present illness Narrative* Jg Reed MD - 12/03/2022 11:05 AM EDT Images from the original note were not included. Cardiothoracic Anesthesiology Preoperative Assessment Service Date: 12/03/2022 Service Time: 11:05 AM Primary Care Physician: Raul Dumont DO Subjective Patient Entered Data: Cardiothoracic Surgery Pre-Op Questionnaire 11/28/2022 11/28/2022 Previous anesthesia problems Yes Yes Anesthesia problems Other Other History of other anesthesia problems constipation after anesthesia constipation after anesthesia Family history anesthesia problems No No Blood consent Yes Yes Esophageal history None None Implanted devices No No History difficult airway No No Airway surgery No No Ongoing pain issues No No Heparin intolerance No No Daily alcohol use No No Illicit drug use No No HPI: 82 yo M presents for pre-op evaluation. PMHx of aortic stenosis, MR, pAfib s/p PVIs on AC, HTN, hx of TIA/CVA. Patient walks with cane. Patient declines any issues with anesthesia in past. Patient denies any known esophageal pathology or dysphagia. Today we discussed the anesthetic plan, what to expect, and any questions or concerns the patient may have had. We additionally discussed perioperative medications and recommended holding Xarelto, Losartan, and vitamins prior to surgery but otherwise continue their medications as prescribed. Review no known heparin intolerance anticoagulant/antiplatelet medication(s) - Patient is taking anticoagulant and/or antiplatelet medication with plans of stopping medication no non-cardiac IEDs present no known esophageal disorders blood transfusion consented - COVID-19 Immunization Status Overdue - COVID-19 VACCINE (2 - Pfizer series) Overdue since 04/01/2021 02/04/2021 Outside Immunization: COVID-19, mRNA, LNP-S, PF, 30 mcg/0.3 mL dose The patient has the following: ACTIVE PROBLEM LIST Hypertrophy of Prostate With Urinary Obstruction and Other Lower Urinary Tract Symptoms (Luts) Dizziness and Giddiness Pain in Joint, Site Unspecified Fitting and Adjustment of Orthopedic Device Paroxysmal Atrial Fibrillation (Hcc) Cardiomegaly Stroke (Hcc) Anxiety Sob (Shortness of Breath) Dizziness Elevated Blood Pressure (Not Hypertension) Blurred Vision Myoclonus Asthma Cancer (Hcc) Hypertension Pheochromocytoma Abdominal Pain Irritable Bowel Syndrome Foot Pain, Right Pain in Limb Pathologic Fracture of Other Specified Site Chest Pain of Uncertain Etiology 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) Atherosclerosis of Aorta (Hcc) PAST MEDICAL HISTORY Diagnosis Date Ankle instability left Aortic stenosis Asthma exercise Atrial fibrillation (HCC) BPH (benign prostatic hyperplasia) Bronchitis Cancer (HCC) basal cell Cardiomegaly 09/22/2012 borderline Dyslipidemia [place] (hard of hearing) Hypertension Mitral regurgitation Pinched nerve in neck Spinal stenosis Stroke (HCC) 06/07/2007 TIA (transient ischemic attack) 06/07/2007 Verruca PAST SURGICAL HISTORY Procedure Laterality Date ATRIAL FIBRILLATION/FLUTTER ABLATION 2001,2003 BACK SURGERY HX Disc Surgery FOOT/TOES SURGERY PROC UNLISTED 02/05/2010 Performed by CHAITANYA WATKINS at [facility] [place] GASTROCNEMIUS RECESSION 02/05/2010 Performed by CHAITANYA WATKINS at [facility] [place] PAST SURGICAL HISTORY OF endoscopic plantar fasciotomy PAST SURGICAL HISTORY OF 04/24/2013 ablation TUR CRYOSURG REM OF PROSTATE FAMILY HISTORY Problem Relation Age of Onset Ischemic Heart Disease Father 52 [place] other (cancer, lung) Father 56 yrs Asthma Sister Asthma Grandchild No Family History Other colon cancer No Family History Other colon polyps other (heart disease) Brother open heart surgery Social History Tobacco Use Smoking status: Never Smokeless tobacco: Never Substance Use Topics Alcohol use: No Drug use: No Prior to Admission medications as of 12/03/22 1026 Medication Sig Last Dose Taking mupirocin (BACTROBAN) 2 % ointment Apply a small amount in each nostril using a cotton swab twice the day before surgery and once the morning of surgery. atorvastatin (LIPITOR) 10 mg tablet TAKE 1 TABLET BY MOUTH EVERY DAY mag [id number] rt xt 500-3,000-150 mg-unit-mg tab Take by mouth. lysine 500 mg tab Take by mouth. Vitamin E Acetate, Bulk, 125 unit/mL liqd XARELTO 20 mg tablet TAKE 1 TABLET BY MOUTH ONCE DAILY. PLEASE CALL THE OFFICE FOR AN APPOINTMENT. finasteride (PROSCAR) 5 mg tablet escitalopram oxalate (LEXAPRO) 5 mg tablet TAKE 1 TABLET BY MOUTH ONE TIME A DAY ascorbic acid/bioflavonoids (MONIQUE C ORAL) Take by mouth once daily. pantoprazole DR (PROTONIX) 40 mg tablet Take 1 tablet by mouth once daily. LOSARTAN POTASSIUM (LOSARTAN ORAL) Take 25 mg by mouth once daily. UBIDECARENONE (CO Q-10 ORAL) Take by mouth. Patient unsure of dosage Chews two gummies a day MULTIVITAMIN ORAL Take by mouth once daily. No medication comments found. ALLERGIES Allergen Reactions Grass Pollen Unknown Nasonex [Mometasone] Other: See Comments Made him feel very hot and very jittery and shakey. Prednisone Mental Status Change Sulfa (Sulfonamide * Unknown Objective Pain Assessment: Vitals: There were no vitals taken for this visit. Diagnostic tests reviewed for today's visit: Lab Value Units Date High Low HB 13.2 g/dL 12/01/2022 17.0 13.0 HCT 41.6 % 12/01/2022 51.0 39.0 WBC 5.55 k/uL 12/01/2022 11.00 3.70 PLT 165 k/uL 12/01/2022 400 150 NA 140 mmol/L 12/01/2022 144 136 K 4.3 mmol/L 12/01/2022 5.1 3.7 GLUC 99 mg/dL 12/01/2022 99 74 BUN 23 mg/dL 12/01/2022 24 9 CREAT 1.16 mg/dL 12/01/2022 1.22 0.73 CREAT 1.20 mg/dL 12/01/2022 1.4 0.7 PTSEC 9.8 sec 12/01/2022 13.0 9.7 INR 0.9 no uni* 12/01/2022 1.3 0.9 APTT 26.9 sec 12/01/2022 32.4 23.0 ALT 16 U/L 12/01/2022 54 10 AST 19 U/L 12/01/2022 40 14 TBILI 0.5 mg/dL 12/01/2022 1.3 0.2 TSH No results within date range. Lab Value Units Date High Low HCGQT No results within date range. UHCG No results within date range. HCG, BODY* No results within date range. Lab Value Units Date High Low ABORHD No results within date range. ABSCREEN No results within date range. No results found for: HBA1C Recent Results (from the past 8760 hour(s)) CTA CHEST (GATED) W IVCON Collection Time: 12/01/22 2:18 PM Impression IMPRESSION: 1. The thoracic aorta is normal in course and caliber with mild calcifications. There is no acute aortic pathology. 2. Pericardial thickening and calcification most prominent anteriorly and posteriorly adjacent to the AV groove. 3. The pulmonary arteries are enlarged centrally suggesting PAH. 4. Proximity of the cardiovascular structures to the sternum: The left brachiocephalic vein lies in close proximity to the posterior aspect of the manubrium at 1cm, The RV is adjacent to the inferior retrosternum. Graduate Intern: [facility] Transcribe Date/Time: Dec 01 2022 5:15P Dictated by : MARYLU CASTILLO DO This examination was interpreted and the report reviewed and electronically signed by: MARYLU CASTILLO DO on Dec 01 2022 5:58PM EST ECHO TRANSESOPHAGEAL Collection Time: 10/19/22 1:24 PM Impression CONCLUSIONS: - Exam indication: Initial evaluation valvular heart disease - The left ventricle is normal in size. Left ventricular systolic function is normal. EF = 55 5% (visual est.) - The right ventricle is normal in size. - The left atrial cavity is moderately dilated. - The right atrial cavity is moderate/severely dilated. - There is severe eccentric (3+ to 4+) holosystolic mitral valve regurgitation due to P2 prolapse and flail tip. Anteriorly directed, wall hugging MR jet. No distinct systolic flow reversal in left pulmonary vein. - Trileaflet aortic valve with at least moderate leaflet calcification. Moderate visual , ASHUTOSH by planimetry is ~1.1 cm2. Inadequate gradients on transgastric views. Trivial concomitant aortic regurgitation. - There is no patent foramen ovale. - Exam was compared with the prior CC echocardiographic exam performed on 10.05.2022(TTE) MR mechanism established. appears at least moderate by planimetry. * * * Final * * * ECG COMPLETE Collection Time: 10/05/22 8:56 AM Impression SINUS RHYTHM WITH PREMATURE ATRIAL COMPLEXES LEFT AXIS DEVIATION ABNORMAL ECG ECHO Collection Time: 10/05/22 8:19 AM Impression CONCLUSIONS: - Exam indication: Valvular heart disease - The left ventricle is normal in size. There is mild left ventricular hypertrophy. Left ventricular systolic function is normal. EF = 69 5% (2D biplane) Left ventricular diastolic function was not evaluated due to AF. No significant regional wall motion abnormality. - The right ventricle is dilated. Right ventricular systolic function is normal. - The visualized aorta is borderline dilated with a maximal dimension of 3.9 cm. - There is severe (3+ - 4+) holosystolic mitral valve regurgitation. Regurgitant orifice area (PISA) is 0.61 cm . Anteriorly directed, very eccentric MR jet. Mechanism likely P2 prolapse, cannot exclude flail segment. - There is paradoxical low flow, low gradient, moderately severe aortic valve stenosis caused by calcified valve and restricted opening. AV area is 0.87 cm (0.42 cm /m ) by continuity, VTI. The peak gradient is 44 mmHg, the mean gradient is 26 mmHg and the dimensionless valve index is 0.28. Previous peak and mean gradients of 48/25 mmHg. - Exam was compared with the prior CC echocardiographic exam performed on 02/19/2022. Progression of MR on current study. * * * Final * * * Assessment No problem-specific Assessment & Plan notes found for this encounter. ANESTHESIA FINDINGS: Intubation History: Significant Anesthesia Considerations: Airway History: Pertinent negatives noted: no history of head/neck surgery that distorted airway and no history of head/neck trauma that distorted airway Prepared for Surgery: optimally prepared for surgery. The Following Tests/Procedures Have Been Initiated: Orders Placed This Encounter mupirocin (BACTROBAN) 2 % ointment Sig: Apply a small amount in each nostril using a cotton swab twice the day before surgery and oncethe morning of surgery. Dispense: 22 g Refill: 0 Order Comments: Supply patient with Q-tips and instruction sheet ASA Class: 4 Planned Anesthetic: general I - PHYSICAL EVALUATION AIRWAY Patient intubated: No. Tracheostomy tube not present Mallampati: I. TM distance: >3 FB. Neck ROM: full ROM without neurological symptoms. Mouth opening: adequate. Short neck: no. Thick neck: no DENTAL Dental findings: teeth intact. II - ANESTHESIA PLAN ASA Score: 4 Anesthetic Plan: general Airway type: ETT Beta Demario Monitoring Plan Post Procedure Analgesic Plan Informed Consent Anesthetic risks, benefits, alternatives, personnel and consent discussed: yes. Patient / Responsible Republican agrees to proceed: yes Patient / Surrogate agrees to blood products: Yes Instructions Given to Patient: Instructions located in the after visit summary. Patient given verbal and written preop instructions and voices comprehension and compliance. Signature: Jg Reed MD Patient Name: Jordi Franco Date: December 03, 2022 Time: 11:05 AM Pager/Contact #: documented in this encounterCommunity Memorial Hospital06-27-2023 Miscellaneous Notes* Telephone Encounter - Moraima Solis RN - 12/01/2022 4:24 PM EDT CARDIOVASCULAR LAB INSTRUCTIONS: Readiness to Learn: Cognitive Ability: Alert and oriented Motivation To Learn: Interested Family/Significant Other Support: High - Very involved in pt care Instruction Provided To: Patient and family member Patient Learns Best By: Individual Instruction Factors Affecting Learning: None Physical Limitations Affecting Learning: None Learning Response: Procedure: Left Heart Diagnostic Pre procedure education topics: Arrival time/NPO Status/Medications/Travel Instructions/Restrictions- instructed to be 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 Instructed By Moraima Solis RN, RN. In Department of CARDIOLOGY. documented in this encounterCommunity Memorial Hospital06-27-2023 NoteUniversity [facility]als [facility]06-27-2023 NoteUniversity Hospitals [facility]06-27-2023 History of Present illness Narrative* RT Angelica(R) - 12/01/2022 2:14 PM EDT Radiology Service Progress Note PATIENT NAME: Jordi Franco DATE OF SERVICE: December 01, 2022 TIME: 2:14 PM PATIENT IDENTITY VERIFICATION COMPLETED USING TWO (2) IDENTIFIERS: Name and Date of confirmedby patient verbally and Name and Date of confirmed by identification band. FALL SCREENING: Has the patient had 2 falls in the last year or 1 fall with injury or currently using an Ambulatory Assistive Device (Walker, Cane, Wheelchair, Crutches, etc.)? No PATIENT GENDER DATA: Male PATIENT RELEVANT IMPLANT DATA REVIEWED: Yes RADIOLOGY DEPARTMENT: CT; Exam(s) Completed: Cardiac and CTA Cardiac PERIPHERAL IV DATA: Site assessment: Clean,Dry and Intact, Site disposition Discontinued SIGNED BY: RT Jerry(R) December 01, 2022 2:14 PM * Lubna Olsen RN - 12/01/2022 1:30 PM EDT Radiology Service Progress Note DATE OF SERVICE: December 01, 2022 TIME: 1:50 PM PATIENT WEIGHT: 195LBS PATIENT IDENTITY VERIFICATION COMPLETED USING TWO (2) STANDARD IDENTIFIERS: Name and Date of confirmed by patient verbally and Name and Date of confirmed by identification band. FALL SCREENING: Has the patient had 2 falls in the last year or 1 fall with injury or currently using an Ambulatory Assistive Device (Walker, Cane, Wheelchair, Crutches, etc.)? Yes, Patient High Riskfor Falls What interventions were put in place to prevent falls during this visit? Non- Skid Socks Used, Yellow Falls Risk Wristband Applied, Instructed Patient to Call for Help if Needed, Instructed Patient to Remain Seated (Not on Exam Table) Until Exam, and Increased Observations by Caregivers PATIENT GENDER DATA: Male ALLERGIES: Reviewed and unchanged CONTRAST ALLERGY: No EXAM: CT -CONTRAST INDUCED NEPHROPATHY RISK FACTORS: Patient age > 60 years and Congestive HeartFailure (CHF) CREATININE: Creatinine Date Value Ref Range Status 04/15/2022 1.10 0.73 - 1.22 mg/dL Final 01/13/2021 1.12 0.73 - 1.22 mg/dL Final 11/16/2019 1.07 0.73 - 1.22 mg/dL Final Estimated Glomerular Filtration Rate Date Value Ref Range Status 04/15/2022 67 >=60 mL/min/1.73m Final Comment: Estimated Glomerular Filtration Rate (eGFR) is calculated using the 2020 CKD-EPI creatinine equation. This equation utilizes serum creatinine, sex, and age as parameters. The creatinine assay has traceable calibration to isotope dilution- mass spectrometry. Refer to KDIGO guidelines for clinical interpretation. In patients with unstable renal function, e.g. those with acute kidney injury, the eGFRmay not accurately reflect actual GFR. eGFR- Date Value Ref Range Status 01/13/2021 >60 Final P.O.C.T. RESULTS: POC done: Yes, See Lab Tab December 01, 2022 TREATMENT: No Hydration needed. IV SITE: Ambulatory: A peripheral IV was started in the Left antecubital site with a Angio cath: 20gauge. IV SITE APPEARANCE: Clean,Dry and Intact SIGNATURE: Lubna Olsen RN PATIENT NAME: Jordi Franco DATE: December 01, 2022 TIME: 1:50 PM documented in this encounterCommunity Memorial Hospital06-27-2023 NoteUniversity Hospitals Cleveland [facility] Center06-19-2023 Miscellaneous Notes* Telephone Encounter - Maura Daigle RN - 11/23/2022 3:22 PM EDT CARE CONTINUUM ADVISOR ASSESSMENT PRIMARY CARE PHYSICIAN: Raul Dumont DO OR Surgery Date: 12/04/22 [facility] Appointment: 12/03/22 Health Insurance: Medicare A&B, [employer] Financial Resources: Employed: Works [employer] Primary Contact: Extended Emergency Contact Information Primary Emergency Contact: Layla Franco Address: [address] [place] [address] Relation: Spouse Secondary Emergency Contact: Td Franco Address: [address] [place] [address] [address] [place] [address] Relation: Son Other Important Patient Contacts: None 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 Yes, requested copies for chart Does Patient Have Concerns About Advance Directives? No Education Provided: Yes, will bring SOCIAL: Living Arrangement: Home Lives With: Spouse Stairs: 2 story home 4 stairs to enter home Do you have any concerns with food and/or affording food?: No Do you have reliable transportation to and from surgery/appointments?: Yes, plan to drive w/family to [place] Medication Adherence: Do you have any concerns with your prescription medication?: No Who do you use for pharmacy?: [id number] [place] [address] [address] [facility] [phone] [place] [id number] Pre-Hospital Baseline Mental Status: Alert & Oriented Informant: Self and Spouse What is your current functional status?: Perform ADLs independently, uses a cane or walking stick as needed. Equipment: Do you currently use any equipment at home for your medical condition or to help you get around? Cane - Straight Walking stick Active Services/Needs: None Do you have a community health advocate contact through your insurance or [employer]?: No Has the Patient Been in a Senior Living Facility in the Past 30 days? No FREEDOM OF CHOICE: Level of Care Discussed: Home Care, Senior Living Facility, Inpatient Rehab Facility, [facility], and Cardiac rehab Financial Disclosure Provided: No Financial Disclaimer Provided: Yes, regarding pre-cert / insurance authorization Provider List: Home Care and Senior Living Facility Provider list within the patient's requested geographic area shared with the patient/family: Yes - Within [address] of [id number] [place] [address] PAC Provider Choices Collected Home Health: 1. [facility] 2. [facility] 3. [facility] 4. [facility]: [facility] Interventions: Discussed importance of active PCP relationship and follow up Discussed insurance risks, gaps, and programs available Advanced Directives Education Discussed reliable transportation needs for surgery and follow up appointments Discussed prescription medications adherence Maura Daigle RN documented in this encounterCommunity Memorial Hospital06-06-2023 Miscellaneous Notes* Telephone Encounter - Haley Valdez - 11/10/2022 3:53 PM EDT INN * Telephone Encounter - Qian Castillo - 11/10/2022 2:49 PM EDT Insurance Card(s) scanned into [employer] Please register/advise Thank You! documented in this encounterCommunity Memorial Hospital05-16-2023 History of Present illness Narrative* Chaitanya Watkins DPM - 10/20/2022 10:38 AM EDT SUBJECTIVE: The patient presents today with his present with discomfort in most of his toenails that are markedly elongated that he is unable to get down to cut himself. PHYSICAL EXAMINATION: Neurovascular Status: Apparently unchanged, bilateral. No appreciable substantial edema or erythema. Pedal pulse and capillary refill are within normal. Dermatologic: The patient has elongated, thickened, yellow, brittle, deformed, and crumbly toenailsgreater than 5. He has some incurvation and sharpness of the distal lateral corner of the hallux nails. There are no appreciable signs of periungual abscess, infection, or cellulitis. Ortho-Musculoskeletal: There is discomfort with palpation especially upon debridement of greater than 5 nails. DIAGNOSES: Onychomycosis greater than 5 with pain greater than 5 for this visit PLAN: Discussed results of clinical examination with the patient in detail along with treatment options. The patient was alert and oriented x3 in no apparent acute distress. I debrided toenails 1-10 in length and thickness with a nail splitter, resected the offending corners of the hallux nails. I recommend follow-up in approximately 3 to 4 months for the same to maintain comfort and reduce risk of complications Documentation from my notes of previous visit of 07/22/22 was copied and pasted, documentation has been reviewed and edited as necessary and is current for today. Chaitanya Watkins D.P.M. documented in this encounterCommunity Memorial Hospital05-15-2023 Surgical operation note* Brief Op Note - Savanna Zhang MD - 10/19/2022 2:20 PM EDT Images from the original note were not included. BRIEF OPERATIVE / PROCEDURE NOTE LOG ID: [id number] PROCEDURE DATE: 10/19/2022 PROCEDURE START TIME: 1:35 PM PROCEDURE END TIME: 2:10 PM PROCEDURALIST(S) AND SAFETY ENGINEER(S): Surgeon(s) and Role: * Savanna Zhang MD - Primary No Additional Staff PROCEDURE(S): CELIA ANESTHESIA: Monitored Anesthesia Care FINDINGS: CELIA findings as below Last ECHO Result Conclusion ECHO Collected: 10/05/2022 8:19 AM (Final result) Impression: CONCLUSIONS: - Exam indication: Valvular heart disease - The left ventricle is normal in size. There is mild left ventricular hypertrophy. Left ventricular systolic function is normal. EF = 69 5% (2D biplane) Left ventricular diastolic function was not evaluated due to AF. No significant regional wall motion abnormality. - The right ventricle is dilated. Right ventricular systolic function is normal. - The visualized aorta is borderline dilated with a maximal dimension of 3.9 cm. - There is severe (3+ - 4+) holosystolic mitral valve regurgitation. Regurgitant orifice area (PISA) is 0.61 cm . Anteriorly directed, very eccentric MR jet. Mechanism likely P2 prolapse, cannot exclude flail segment. - There is paradoxical low flow, low gradient, moderately severe aortic valve stenosis caused by calcified valve and restricted opening. AV area is 0.87 cm (0.42 cm /m ) by continuity, VTI. The peak gradient is 44 mmHg, the mean gradient is 26 mmHg and the dimensionless valve index is 0.28. Previous peak and mean gradients of 48/25 mmHg. - Exam was compared with the prior CC echocardiographic exam performed on 02/19/2022. Progression of MR on current study. * * * Final * * * Last CELIA Result Conclusion ECHO TRANSESOPHAGEAL Collected: 10/19/2022 1:24 PM (Final result) Impression: CONCLUSIONS: - Exam indication: Initial evaluation valvular heart disease - The left ventricle is normal in size. Left ventricular systolic function is normal. EF = 55 5% (visual est.) - The right ventricle is normal in size. - The left atrial cavity is moderately dilated. - The right atrial cavity is moderate/severely dilated. - There is severe eccentric (3+ to 4+) holosystolic mitral valve regurgitation due to P2 prolapse and flail tip. Anteriorly directed, wall hugging MR jet. No distinct systolic flow reversal in left pulmonary vein. - Trileaflet aortic valve with at least moderate leaflet calcification. Moderate visual , ASHUTOSH by planimetry is ~1.1 cm2. Inadequate gradients on transgastric views. Trivial concomitant aortic regurgitation. - There is no patent foramen ovale. - Exam was compared with the prior echocardiographic exam performed on 10.05.2022(TTE) MR mechanism established. appears at least moderate by planimetry. * * * Final * * * COMPLICATIONS: Difficult probe insertion due to excess secretions/cough w sedation PRE-OP/PRE-PROCEDURE DIAGNOSIS: Severe MR , establish MR mechanism POST-OP/POST-PROCEDURE DIAGNOSIS: P2 prolapse and flail w severe MR + atleast mod Savanna Zhang MD [employer] Vice President For [employer]anth[employer] of Advanced Cardiac Imaging and Cardio-Oncology [facility] Pager: [phone] October 19, 2022 5:17 PM documented in this encounterCommunity [facility] Hospital05-[facility]23 Miscellaneous Notes* Telephone Encounter - Sherrell Alvarez Pss - 10/05/2022 1:32 PM EDT PROCEDURE: 10/19/22 @ 1:30 pm (arrival time: 12:00 pm). CELIA w/ Dr. Zhang. Sherrell Harley w/ pt. Procedure date/ time/ instructions given F/F And over the phone Schd w/ Miroslava @ hosp. F/u schd. 11/23/22 @ 9:00 am Diabetic: No. Other meds to hold: No Continue taking Xarelto Labs to be done:No Sherrell Alvarez Coordinator [facility] documented in this encounterCommunity [facility] Hospital05-01-2023 Instructions* Patient Instructions* Savanna Zhang MD - 10/05/2022 9:52 AM EDT You have 2 heart valve conditions --mitral regurgitation and aortic stenosis To better define these valve conditions, we will plan on CELIA procedure We will touch base after CELIA procedure documented in this encounterCommunity [facility] Hospital05-01-2023 History of Present illness Narrative* Savanna Zhang MD - 10/05/2022 9:30 AM EDT Images from the original note were not included. [facility] Department of Cardiovascular Medicine SECTION OF CLINICAL CARDIOLOGY OUTPATIENT VISIT DATE October 05, 2022 OUTPATIENT VISIT TYPE ESTABLISHED PRIMARY CARE PHYSICIAN: Raul Dumont [address] [address] [place] [address] CHIEF COMPLAINT: Cardiology Follow Up , Paroxysmal atrial fibrillation , and Dyspnea On Exertion HISTORY OF PRESENT ILLNESS: Mr. Franco is a 82 year old man w moderately severe paradoxical low flow low gradient clinicallysymptomatic aortic stenosis, mod-severe MR, pAfib s/p PVIs on AC, HTN, hx of TIA/CVA who presents today for cardiac follow up of . Clinically patient mentions slight change in his functional class, mentions easy dyspnea on exertion while doing gardening or simple house chores, denies having any cardiac limitations during his usual treadmill exercise. Denies any exertional chest pain or exertional syncope or HF sxs. He denies any significant resting shortness of breath, orthopnea, cough, edema, palpitations, PND, lightheadedness or syncope. Accompanied by son, collateral information obtained Cardiac meds losartan 25, atorvastatin 10, xarelto 20 PAST MEDICAL HISTORY Diagnosis Date Ankle instability left Asthma exercise Atrial fibrillation (HCC) BPH (benign prostatic hyperplasia) Bronchitis Cancer (HCC) basal cell Cardiomegaly 09/22/12 borderline Dyslipidemia [place] (hard of hearing) Hypertension Pinched nerve in neck Spinal stenosis Stroke (HCC) 2007 TIA (transient ischemic attack) 2007 [facility] PAST SURGICAL HISTORY Procedure Laterality Date ATRIAL FIBRILLATION/FLUTTER ABLATION 2001,2003 FOOT/TOES SURGERY PROC UNLISTED 02/05/10 Performed by CHAITANYA WATKINS at [facility] GASTROCNEMIUS RECESSION 02/05/10 Performed by CHAITANYA WATKINS at [facility] [place] PAST SURGICAL HISTORY OF endoscopic plantar fasciotomy PAST SURGICAL HISTORY OF 04/24/13 ablation TUR CRYOSURG REM OF PROSTATE SOCIAL HISTORY Social History Tobacco Use Smoking status: Never Smokeless tobacco: Never Substance Use Topics Alcohol use: No Drug use: No FAMILY HISTORY Problem Relation Age of Onset Ischemic Heart Disease Father 52 [place] other (cancer, lung) Father 56 yrs Asthma Sister Asthma Grandchild No Family History Other colon cancer No Family History Other colon polyps other (heart disease) Brother open heart surgery ALLERGIES: ALLERGIES Allergen Reactions Grass Pollen Unknown Nasonex [Mometasone] Other: See Comments Made him feel very hot and very jittery and shakey. Prednisone Mental Status Change Sulfa (Sulfonamide * Unknown MEDICATIONS: mag [id number] rt xt 500-3,000-150 mg-unit-mg tab^Take by mouth.^Disp: ^Rfl: lysine 500 mg tab^Take by mouth.^Disp: ^Rfl: Vitamin E Acetate, Bulk, 125 unit/mL liqd^^Disp: ^Rfl: XARELTO 20 mg tablet^TAKE 1 TABLET BY MOUTH ONCE DAILY. PLEASE CALL THE OFFICE FOR AN APPOINTMENT.^Disp: 90 tablet^Rfl: 3 atorvastatin (LIPITOR) 10 mg tablet^TAKE 1 TABLET EVERY DAY^Disp: 90 tablet^Rfl: 3 finasteride (PROSCAR) 5 mg tablet^^Disp: ^Rfl: escitalopram oxalate (LEXAPRO) 5 mg tablet^TAKE 1 TABLET BY MOUTH ONE TIME A DAY^Disp: ^Rfl: pantoprazole DR (PROTONIX) 40 mg tablet^Take 1 tablet by mouth once daily.^Disp: 30 tablet^Rfl: 5 LOSARTAN POTASSIUM (LOSARTAN ORAL)^Take 25 mg by mouth once daily. ^Disp: ^Rfl: UBIDECARENONE (CO Q-10 ORAL)^Take by mouth. Patient unsure of dosage Chews two gummies a day ^Disp: ^Rfl: MULTIVITAMIN ORAL^Take by mouth once daily.^Disp: ^Rfl: acetaminophen (TYLENOL EXTRA STRENGTH) 500 mg tablet^Take 2 tablets by mouth every 6 hours as needed for Pain.^Disp: ^Rfl: valACYclovir (VALTREX) 500 mg tablet^^Disp: ^Rfl: ascorbic acid/bioflavonoids (MONIQUE C ORAL)^Take by mouth once daily.^Disp: ^Rfl: (Patient not taking: Reported on 10/05/2022) REVIEW OF SYSTEMS: GENERAL: Negative for: Weight loss or gain, Fever or Chills, Weakness and Sleep difficulties. HEENT: Negative for: Headache, Impaired Vision, Glasses, Hearing Impairment, Ringing in Ears, Nosebleeds, Poor dental care, Bleeding Gums, Dentures NECK: Negative for: Swelling, Pain, Stiffness RESPIRATORY: Negative for: Cough, Blood in Sputum, Shortness of breath, Wheezing, Apnea GASTROINTESTINAL: Negative for: Trouble swallowing, Heartburn, Change in bowel habits, Blood in stool, Dark black stools MUSCULOSKELETAL: Negative for: Muscle or joint pain, Stiffness , Joint swelling NEUROLOGIC/PSYCHIATRIC: Negative for: Weakness, Paralysis, Numbness, Tingling, Tremor, Nervousness,Depressed mood, Memory loss SKIN: Negative for: Rashes, Itching HEMATOLOGICAL/LYMPHATIC: Negative for: Easy bruising , Easy bleeding ENDOCRINE: Negative for: Heat or cold intolerance, Excessive sweating, Frequent urination, Frequentthirst PHYSICAL EXAMINATION: BP 130/62 (BP Site: Left Arm, BP Position: Sitting, BP Cuff Size: Large Adult) Pulse 62 Ht 177.8 cm (5' 10 ) Wt 93.1 kg (205 lb 3.2 oz) BMI 29.44 kg/m General: Well appearing, in no acute distress. Neck: No jugular venous distention Lungs: Clear to auscultation bilaterally, no wheezing or rhonchi. Heart: Regular rhythm, PMI not displaced, S1, S2 normal, + systolic murmur at apex and right upper sternal border Abdomen: Soft, nontender, bowel sounds normal Extremities: No peripheral edema . Neuro: Oriented to person, place and time, alert, cooperative. CARDIOVASCULAR MEDICINE TESTING: Electrocardiogram: tracing reviewed sinus PAC Last ECHO Result Conclusion ECHO Collected: 10/05/2022 8:19 AM (Final result) Impression: CONCLUSIONS: - Exam indication: Valvular heart disease - The left ventricle is normal in size. There is mild left ventricular hypertrophy. Left ventricular systolic function is normal. EF = 69 5% (2D biplane) Left ventricular diastolic function was not evaluated due to AF. No significant regional wall motion abnormality. - The right ventricle is dilated. Right ventricular systolic function is normal. - The visualized aorta is borderline dilated with a maximal dimension of 3.9 cm. - There is severe (3+ - 4+) holosystolic mitral valve regurgitation. Regurgitant orifice area (PISA) is 0.61 cm . Anteriorly directed, very eccentric MR jet. Mechanism likely P2 prolapse, cannot exclude flail segment. - There is paradoxical low flow, low gradient, moderately severe aortic valve stenosis caused by calcified valve and restricted opening. AV area is 0.87 cm (0.42 cm /m ) by continuity, VTI. The peak gradient is 44 mmHg, the mean gradient is 26 mmHg and the dimensionless valve index is 0.28. Previous peak and mean gradients of 48/25 mmHg. - Exam was compared with the prior echocardiographic exam performed on 02/19/2022. Progression of MR on current study. * * * Final * * * Last EKG Result Conclusion ECG COMPLETE Collected: 10/05/2022 8:56 AM (Preliminary result) Impression: SINUS RHYTHM WITH PREMATURE ATRIAL COMPLEXES LEFT AXIS DEVIATION ABNORMAL ECG Last ECHO Result Conclusion ECHO Collected: 02/19/2022 2:19 PM (Final result) Impression: CONCLUSIONS: - Exam indication: Paroxysmal Afib; Aortic stenosis - The left ventricle is normal in size. There is mild concentric left ventricular hypertrophy. Left ventricular systolic function is normal. EF = 66 5% (2D biplane) Left ventricular diastolic function was not evaluated due to AF. - The right ventricle is normal in size. Right ventricular systolic function is normal. - The left atrial cavity is severely dilated. - The right atrial cavity is severely dilated. - The visualized aorta is borderline dilated with a maximal dimension of 3.8 cm. - There is moderate (2+ - 3+) mitral valve regurgitation. Regurgitant orifice area (PISA) is 0.36 cm . - Tricuspid aortic valve. There is paradoxical low flow, low gradient, moderately severe aortic valve stenosis caused by calcified valve and restricted opening. AV area is 0.82 cm (0.40 cm /m ) by continuity, VTI. The peak gradient is 48 mmHg, the mean gradient is 25 mmHg and the dimensionless valve index is 0.26. Prior Pk/Mn gradients, 31/19 mmHg. - Exam was compared with the prior CC echocardiographic exam performed on 02/17/2021. ASHUTOSH was 1.13 cm2, P/M gradient 31/19 mmHg. * * * Final * * * Creatinine Date Value Ref Range Status 04/15/2022 1.10 0.73 - 1.22 mg/dL Final 01/13/2021 1.12 0.73 - 1.22 mg/dL Final 11/16/2019 1.07 0.73 - 1.22 mg/dL Final 06/08/2017 1.02 0.73 - 1.22 mg/dL Final Potassium Date Value Ref Range Status 04/15/2022 4.6 3.7 - 5.1 mmol/L Final 01/13/2021 4.3 3.7 - 5.1 mmol/L Final 11/16/2019 4.3 3.7 - 5.1 mmol/L Final Magnesium Date Value Ref Range Status 09/15/2013 2.3 1.7 - 2.6 mg/dL Final TSH Date Value Ref Range Status 02/28/2014 1.460 0.400 - 5.500 uU/mL Final NT Pro BNP Date Value Ref Range Status 10/09/2012 1,615 (H) <125 pg/mL Final Comment: For the ruling out or ruling in acute CHF: Rule out: <300 pg/mL all ages Rule in: >450 pg/mL <50 years >900 pg/mL 50 to 75 years >1800 pg/mL >75 years Zoey et al. The N Terminal Pro BNP Investigation of Dyspnea in the Emergency Department (PRIDE) Study. [place] Journal of Cardiology 2005:95:948 to 954. Levon et al. The NT proBNP testing for diagnosis and short term prognosis in acute destabilized heart failure: and international pooled analysis of 1256 patients. Heart Journal 2006:27(3):330 to 337. IMPRESSION: Mr. Franco is a 82 year old man w moderately severe paradoxical low flow low gradient clinicallysymptomatic aortic stenosis, mod-severe MR, pAfib s/p PVIs on AC, HTN, hx of TIA/CVA who presents today for cardiac follow up of . Clinically new DOHERTY and change in FC, no exertional chest pain or exertional syncope or HF sxs SBP 130s HR 60s ECG sinus , no ischemic changes TTE preserved LV and RV function, severe biatrial enlargement, now severe MR anterior very eccentric jet 2/2 P2 prolapse ?flail, paradoxical low flow low gradient moderately severe ASHUTOSH 0.8, mean grad 26 mmHg Cardiac meds losartan 25, atorvastatin 10, xarelto 20 PLAN AND RECOMMENDATIONS: Recommend CELIA to better define MR mechanism and severity as well as planimetry, will likely needTAVR/TMVR team input after CELIA Medically optimized , cont current HTN regimen w losartan 25 Re: Afib, in sinus today, severe LAE, on CVA ppx xarelto 20qd Defers addition of spironolactone 25 as weak diuretic for severe MR, clinically euvolemic so we will hold off Lasix or torsemide at this time CONTACT INFORMATION: Savanna Zhang MD Staff [employer] Vice President For Philanthropy of Advanced Cardiac Imaging and Cardio-Oncology [facility] Pager: [phone] October 05, 2022 documented in this encounterCommunity [facility] Hospital04-28-2023 Miscellaneous Notes* Telephone Encounter - Cristine Diamond - 10/02/2022 8:55 AM EDT Pharmacy electronic RX request to request a refill on the medication(s) below: Requested Prescriptions Pending Prescriptions Disp Refills atorvastatin (LIPITOR) 10 mg tablet [Pharmacy Med Name: ATORVASTATIN 10 MG TABLET] 90 tablet 3 Sig: TAKE 1 TABLET BY MOUTH EVERY DAY Pickup RX Physician's Name: Dr. Spaulding Last seen in office: 04/02/2022 If last appointment/recall greater than one year or no follow up scheduled, sent to schedulers: No Follow up scheduled for: 02/15/2023 Cristine Diamond 10/02/2022 documented in this encounterCommunity [facility] Hospital02-15-2023 History of Present illness Narrative* Chaitanya Watkins DPM - 07/22/2022 10:13 AM EST SUBJECTIVE: The patient presents today with his present with discomfort in most of his toenails that are markedly elongated that he is unable to get down to cut himself. PHYSICAL EXAMINATION: Neurovascular Status: Apparently unchanged, bilateral. No appreciable substantial edema or erythema. Pedal pulse and capillary refill are within normal. Dermatologic: The patient has elongated, thickened, yellow, brittle, deformed, and crumbly toenailsgreater than 5. He has some incurvation and sharpness of the distal lateral corner of the hallux nails. There are no appreciable signs of periungual abscess, infection, or cellulitis. Ortho-Musculoskeletal: There is discomfort with palpation especially upon debridement of greater than 5 nails. DIAGNOSES: Onychomycosis greater than 5 with pain greater than 5 for this visit PLAN: Discussed results of clinical examination with the patient in detail along with treatment options. The patient was alert and oriented x3 in no apparent acute distress. I debrided toenails 1-10 in length and thickness with a nail splitter, resected the offending corners of the hallux nails. I recommend follow-up in approximately 3 to 4 months for the same to maintain comfort and reduce risk of complications Documentation from my notes of previous visit of04/21/22 was copied and pasted, documentation has been reviewed and edited as necessary and is current for today. Chaitanya Watkins D.P.M. documented in this encounterCommunity [facility] Hospital11-15-2022 History of Present illness Narrative* Chaitanya Watkins DPM - 04/21/2022 10:29 AM EST SUBJECTIVE: The patient presents today with his present with discomfort in most of his toenails that are markedly elongated that he is unable to get down to cut himself. PHYSICAL EXAMINATION: Neurovascular Status: Apparently unchanged, bilateral. No appreciable substantial edema or erythema. Pedal pulse and capillary refill are within normal. Dermatologic: The patient has elongated, thickened, yellow, brittle, deformed, and crumbly toenailsgreater than 5. He has some incurvation and sharpness of the distal lateral corner of the hallux nails. There are no appreciable signs of periungual abscess, infection, or cellulitis. Ortho-Musculoskeletal: There is discomfort with palpation especially upon debridement of greater than 5 nails. DIAGNOSES: Onychomycosis greater than 5 with pain greater than 5 for this visit PLAN: Discussed results of clinical examination with the patient in detail along with treatment options. The patient was alert and oriented x3 in no apparent acute distress. I debrided toenails 1-10 in length and thickness with a nail splitter, resected the offending corners of the hallux nails. I recommend follow-up in approximately 3 to 4 months for the same to maintain comfort and reduce risk of complications Documentation from my notes of previous visit of 01/16/22 was copied and pasted, documentation has been reviewed and edited as necessary and is current for today. Chaitanya Watkins D.P.M. documented in this encounterCommunity Memorial Hospital10-27-2022 Instructions* Patient Instructions* Savanna Zhang MD - 04/02/2022 8:36 AM EDT You have moderate degree of aortic stenosis (narrowing/tight valve opening) It is not causing any symptoms at this time We will keep close eye with repeat echo every 6 months Procedure for severe aortic stenosis management is called TAVR We will get Echo same day as our follow up appointment documented in this encounterCommunity Memorial Hospital10-27-2022 History of Present illness Narrative* Savanna Zhang MD - 04/02/2022 8:27 AM EDT Images from the original note were not included. [facility] Department of Cardiovascular Medicine SECTION OF CLINICAL CARDIOLOGY OUTPATIENT VISIT DATE April 02, 2022 OUTPATIENT VISIT TYPE NEW PRIMARY CARE PHYSICIAN: Raul Dumont [address] [place] [address] REFERRING PHYSICIAN: Aortic stenosis CHIEF COMPLAINT: Consult (Dr. Spaulding referred) HISTORY OF PRESENT ILLNESS: Mr. Franco is a 81 year old man w moderately severe paradoxical low flow low gradient clinicallyasymptomatic aortic stenosis, mod MR, pAfib s/p PVIs on AC, HTN, hx of TIA/CVA who presents today for cardiac management of . Clinically patient mentions excellent functional class, able to do long walks without any cardiac limitations. Denies any exertional chest pain or exertional syncope or HF sxs. He denies any significant resting or exertional shortness of breath, orthopnea, cough, edema, palpitations, PND, lightheadedness or syncope. Cardiac meds losartan 25, atorvastatin 10, xarelto 20 PAST MEDICAL HISTORY Diagnosis Date Ankle instability left Asthma exercise Atrial fibrillation (HCC) BPH (benign prostatic hyperplasia) Bronchitis Cancer (HCC) basal cell Cardiomegaly 09/22/12 borderline Dyslipidemia [place] (hard of hearing) Hypertension Pinched nerve in neck Spinal stenosis Stroke (HCC) 2007 TIA (transient ischemic attack) 2008 [facility] PAST SURGICAL HISTORY Procedure Laterality Date ATRIAL FIBRILLATION/FLUTTER ABLATION 2001,2003 FOOT/TOES SURGERY PROC UNLISTED 02/05/10 Performed by CHAITANYA WATKINS at [facility] [place] GASTROCNEMIUS RECESSION 02/05/10 Performed by CHAITANYA WATKINS at [facility] [place] PAST SURGICAL HISTORY OF endoscopic plantar fasciotomy PAST SURGICAL HISTORY OF 04/24/13 ablation TUR CRYOSURG REM OF PROSTATE SOCIAL HISTORY Social History Tobacco Use Smoking status: Never Smokeless tobacco: Never Substance Use Topics Alcohol use: No Drug use: No FAMILY HISTORY Problem Relation Age of Onset Ischemic Heart Disease Father 52 [place] other (cancer, lung) Father 56 yrs Asthma Sister Asthma Grandchild No Family History Other colon cancer No Family History Other colon polyps other (heart disease) Brother open heart surgery ALLERGIES: ALLERGIES Allergen Reactions Grass Pollen Unknown Nasonex [Mometasone] Other: See Comments Made him feel very hot and very jittery and shakey. Prednisone Mental Status Change Sulfa (Sulfonamide * Unknown MEDICATIONS: atorvastatin (LIPITOR) 10 mg tablet^TAKE 1 TABLET EVERY DAY^Disp: 90 tablet^Rfl: 3 XARELTO 20 mg tablet^TAKE 1 TABLET BY MOUTH ONCE DAILY. PLEASE CALL THE OFFICE FOR AN APPOINTMENT.^Disp: 30 tablet^Rfl: 11 finasteride (PROSCAR) 5 mg tablet^^Disp: ^Rfl: escitalopram oxalate (LEXAPRO) 5 mg tablet^TAKE 1 TABLET BY MOUTH ONE TIME A DAY^Disp: ^Rfl: ascorbic acid/bioflavonoids (MONIQUE C ORAL)^Take by mouth once daily.^Disp: ^Rfl: pantoprazole DR (PROTONIX) 40 mg tablet^Take 1 tablet by mouth once daily.^Disp: 30 tablet^Rfl: 5 LOSARTAN POTASSIUM (LOSARTAN ORAL)^Take 25 mg by mouth once daily. ^Disp: ^Rfl: UBIDECARENONE (CO Q-10 ORAL)^Take by mouth. Patient unsure of dosage Chews two gummies a day ^Disp: ^Rfl: MULTIVITAMIN ORAL^Take by mouth once daily.^Disp: ^Rfl: acetaminophen (TYLENOL EXTRA STRENGTH) 500 mg tablet^Take 2 tablets by mouth every 6 hours as needed for Pain.^Disp: ^Rfl: valACYclovir (VALTREX) 500 mg tablet^^Disp: ^Rfl: REVIEW OF SYSTEMS: GENERAL: Negative for: Weight loss or gain, Fever or Chills, Weakness and Sleep difficulties. HEENT: Negative for: Headache, Impaired Vision, Glasses, Hearing Impairment, Ringing in Ears, Nosebleeds, Poor dental care, Bleeding Gums, Dentures NECK: Negative for: Swelling, Pain, Stiffness RESPIRATORY: Negative for: Cough, Blood in Sputum, Shortness of breath, Wheezing, Apnea GASTROINTESTINAL: Negative for: Trouble swallowing, Heartburn, Change in bowel habits, Blood in stool, Dark black stools MUSCULOSKELETAL: Negative for: Muscle or joint pain, Stiffness , Joint swelling NEUROLOGIC/PSYCHIATRIC: Negative for: Weakness, Paralysis, Numbness, Tingling, Tremor, Nervousness,Depressed mood, Memory loss SKIN: Negative for: Rashes, Itching HEMATOLOGICAL/LYMPHATIC: Negative for: Easy bruising , Easy bleeding ENDOCRINE: Negative for: Heat or cold intolerance, Excessive sweating, Frequent urination, Frequentthirst PHYSICAL EXAMINATION: BP 136/68 Pulse 74 Ht 175.3 cm (5' 9 ) Wt 87.1 kg (192 lb) BMI 28.35 kg/m General: Well appearing, in no acute distress. Neck: No jugular venous distention Lungs: Clear to auscultation bilaterally, no wheezing or rhonchi. Heart: Regular rhythm, S1, S2 normal, + RUSB murmur Abdomen: Soft, nontender, bowel sounds normal, no palpable organomegaly, no bruits. Extremities: No peripheral edema . Grade 2/4 distal pulses bilaterally. Neuro: Oriented to person, place and time, alert, cooperative, gait coordinated. CARDIOVASCULAR MEDICINE TESTING: Electrocardiogram: tracing reviewed sinus no ischemic changes Last ECHO Result Conclusion ECHO Collected: 02/19/2022 2:19 PM (Final result) Impression: CONCLUSIONS: - Exam indication: Paroxysmal Afib; Aortic stenosis - The left ventricle is normal in size. There is mild concentric left ventricular hypertrophy. Left ventricular systolic function is normal. EF = 66 5% (2D biplane) Left ventricular diastolic function was not evaluated due to AF. - The right ventricle is normal in size. Right ventricular systolic function is normal. - The left atrial cavity is severely dilated. - The right atrial cavity is severely dilated. - The visualized aorta is borderline dilated with a maximal dimension of 3.8 cm. - There is moderate (2+ - 3+) mitral valve regurgitation. Regurgitant orifice area (PISA) is 0.36 cm . - Tricuspid aortic valve. There is paradoxical low flow, low gradient, moderately severe aortic valve stenosis caused by calcified valve and restricted opening. AV area is 0.82 cm (0.40 cm /m ) by continuity, VTI. The peak gradient is 48 mmHg, the mean gradient is 25 mmHg and the dimensionless valve index is 0.26. Prior Pk/Mn gradients, 31/19 mmHg. - Exam was compared with the prior CC echocardiographic exam performed on 02/17/2021. ASHUTOSH was 1.13 cm2, P/M gradient 31/19 mmHg. * * * Final * * * Last EKG Result Conclusion ECG COMPLETE Collected: 04/02/2022 7:53 AM (Preliminary result) Impression: SINUS RHYTHM WITH SHORT TN LEFT AXIS DEVIATION RSR' PATTERN IN V1 SUGGESTS INCOMPLETE RIGHT BUNDLE BRANCH BLOCK ABNORMAL ECG Creatinine Date Value Ref Range Status 01/13/2021 1.12 0.73 - 1.22 mg/dL Final 11/16/2019 1.07 0.73 - 1.22 mg/dL Final 06/08/2017 1.02 0.73 - 1.22 mg/dL Final 11/17/2016 1.02 0.73 - 1.22 mg/dL Final Potassium Date Value Ref Range Status 01/13/2021 4.3 3.7 - 5.1 mmol/L Final 11/16/2019 4.3 3.7 - 5.1 mmol/L Final 06/08/2017 4.5 3.7 - 5.1 mmol/L Final Magnesium Date Value Ref Range Status 09/15/2013 2.3 1.7 - 2.6 mg/dL Final TSH Date Value Ref Range Status 02/28/2014 1.460 0.400 - 5.500 uU/mL Final NT Pro BNP Date Value Ref Range Status 10/09/2012 1,615 (H) <125 pg/mL Final Comment: For the ruling out or ruling in acute CHF: Rule out: <300 pg/mL all ages Rule in: >450 pg/mL <50 years >900 pg/mL 50 to 75 years >1800 pg/mL >75 years Zoey et al. The N Terminal Pro BNP Investigation of Dyspnea in the Emergency Department (PRIDE) Study. [place] Journal of Cardiology 2005:95:948 to 954. Levon et al. The NT proBNP testing for diagnosis and short term prognosis in acute destabilized heart failure: and international pooled analysis of 1256 patients. Heart Journal 2006:27(3):330 to 337. Cholesterol, Total Date Value Ref Range Status 11/16/2019 123 <200 mg/dL Final Comment: <200 mg/dL, Desirable 200-239 mg/dL, Borderline high >239 mg/dL, High HDL Cholesterol Date Value Ref Range Status 11/16/2019 50 >39 mg/dL Final Comment: 40-59 mg/dL, Acceptable >59 mg/dL, High: Negative risk factor for coronary heart disease <40 mg/dL, Low: Positive risk factor for coronary heart disease LDL Cholesterol Date Value Ref Range Status 11/16/2019 64 <100 mg/dL Final Comment: <100 mg/dL, Optimal 100-129 mg/dL, Near optimal/above optimal 130-159 mg/dL, Borderline high 160-189 mg/dL, High >189 mg/dL, Very high Secondary prevention optimal LDL Cholesterol levels are recommended to be < 70 mg/dL Triglyceride Date Value Ref Range Status 11/16/2019 43 <150 mg/dL Final Comment: <150 mg/dL, Normal 150-199 mg/dL, Borderline high 200-499 mg/dL, High >499 mg/dL, Very high IMPRESSION: Mr. Franco is a 81 year old man w moderately severe paradoxical low flow low gradient clinicallyasymptomatic aortic stenosis, mod MR, pAfib s/p PVIs on AC, HTN, hx of TIA/CVA who presents today for cardiac management of . Clinically excellent functional class w no exertional chest pain or exertional syncope or HF sxs SBP 130s HR 70s ECG sinus , no ischemic changes TTE preserved LV and RV function, severe biatrial enlargement, mod MR, paradoxical low flow low gradient moderately severe ASHUTOSH 0.8, mean grad 25 mmHg Cardiac meds losartan 25, atorvastatin 10, xarelto 20 PLAN AND RECOMMENDATIONS: Repeat TTE next visit for close echo surveillance of clinically asymptomatic moderately severe , based on TTE results--consider DSE for contractile reserve versus TAVR candidacy consultation Medically optimized , cont current HTN regimen w losartan 25 Re: Afib, in sinus today, severe LAE, on CVA ppx xarelto 20qd RTC 6 mons w repeat TTE prior to the visit CONTACT INFORMATION: Savanna Zhang MD Staff [employer] Vice President For [employer] of [facility] Cardiac [facility] and Cardio-Oncology [facility] Pager: [phone] April 02, 2022 11:10 AM documented in [facility] encounter[facility] Miscellaneous Notes* Telephone Encounter - Clara Hernandez RN - 03/06/2022 9:32 AM EDT Called and spoke to patients - patient is unavailable. Appointment is scheduled for Dr. Zhang per Dr. Spaulding recommendation for April 02. will have patient return call when he return. Clara Hernandez, RN * Telephone Encounter - Floyd Spaulding MD - 03/05/2022 4:13 PM EDT Please tell Jordi that there has been some progression of his aortic valve disease. It is probablyworth him discussing it with one of the general cardiologists. Maybe he should see Dr. Zhang or if they have some space on the schedule. Floyd Spaulding MD * Telephone Encounter - Reji Virgen RN - 02/23/2022 11:32 AM EDT Images from the original note were not included. Dr. Spaulding- Please see the message below from this patient and advise. Thank you, JC Ball Howard B Does the new echocardiogram from 02/19/2022 going to require heart surgery replacing heart valves inthe Aorta? Jordi Franco documented in this encounter[facility] Miscellaneous Notes* Telephone Encounter - Shelby Dhaliwal MA - 10/06/2021 10:14 AM EDT Per the NOAC checklist, patient is due for labs. Please sign orders. Pharmacy electronic RX request to request a refill on the medication(s) below: Pending Prescriptions Disp Refills ATORVASTATIN 10 MG TABLET 90 tablet 3 Sig: TAKE 1 TABLET EVERY DAY MAYE: Yes Pickup RX Physician's Name: Dr. Spaulding Last seen in office: 11/03/2018 If last follow up appointment scheduled greater than one year or no follow up scheduled, sent to schedulers: No Follow up scheduled for: 02/16/2022 Shelby Dhaliwal MA 10/06/2021 [facility] Future Appointments Appointment Date:02/15/2023 10:45:00 AM Scheduled Provider:Osmel GARCIA MD [facility] Appoint[facility] Type:URO Office Visit Appointment Date:04/29/2023 11:00:00 AM Scheduled Provider: Location:[facility] Appointment Type:FM Medicare Wellness Subsequent [facility] Evaluation + Plan note Future Appointments Appointment Date:02/15/2023 10:45:00 AM Scheduled Provider:Osmel GARCIA MD [facility] Appointment Type:URO Office Visit Appointment Date:04/29/2023 11:00:00 AM Scheduled Provider: Location:[facility] Appointment Type:FM Medicare Wellness Subsequent Future Scheduled Tests Laboratory* Basic Metabolic Panel 07/20/22 * CBC w/ Auto Diff 07/20/22 * Thyroid Stimulating Hormone 07/20/22 [facility] Evaluation + Plan note Future Appointments Appointment Date:04/29/2023 11:00:00 AM Scheduled Provider: Location:[facility] Appointment Type:FM Medicare Wellness Subsequent Appointment Date:02/22/2024 10:00:00 AM Scheduled Provider:IVONNE GRANT PA-C Location:[facility] Appointment Type:URO Office Visit Diagnostic Tests Pending * PSA Total 02/16/23 Future Scheduled Tests Laboratory* Basic Metabolic Panel 07/20/22 * CBC w/ Auto Diff 07/20/22 * Thyroid Stimulating Hormone 07/20/22 [facility] evaluation + Plan note Future Appointments Appointment Date:05/03/2023 11:00:00 AM Scheduled Provider: Location:[facility] Appointment Type:FM Medicare Wellness Subsequent Appointment Date:02/22/2024 10:00:00 AM Scheduled Provider:IVONNE GRANT PA-C Location:[facility] Appointment Type:URO Office Visit Future Scheduled Tests Laboratory* Basic Metabolic Panel 07/20/22 * CBC w/ Auto Diff 07/20/22 * Thyroid Stimulating Hormone [facility]ments Appointment Date:02/22/2024 10:00:00 AM Scheduled Provider:IVONNE GRANT PA-C Location:[facility] Appointment Type:URO Office Visit Appointment Date:05/09/2024 11:00:00 AM Scheduled Provider: Location:[facility] Appointment Type:FM Medicare Wellness Subsequent Future Scheduled Tests Laboratory* Basic Metabolic Panel 07/20/22 * CBC w/ Auto Diff 07/20/22 * Thyroid Stimulating Hormone 07/20/22 [facility] [place] Evaluation noteNo assessment information available [facility] Work Phone: Evaluation note* Diagnosis Paroxysmal atrial fibrillation (HCC)- Primary Atrial fibrillation Nonrheumatic aortic valve stenosis Aortic valve disorders Primary hypertension Unspecified essential hypertension Hyperlipidemia with target LDL less than 70 Other and unspecified hyperlipidemia [facility] encounter [facility] Diagnosis Onychomycosis- Primary Dermatophytosis of nail Pain in toes of both feet documented [facility] this encounter [facility]* Diagnosis Onychomycosis- Primary Dermatophytosis of nail Pain in toes of both feet [facility] Mitral regurgitation and aortic stenosis- Primary Mitral valve insufficiency and aortic valve stenosis Nonrheumatic aortic valve stenosis Aortic valve disorders Primary hypertension Unspecified essential hypertension Cardiac risk counseling Other specified counseling Atherosclerosis of aorta (HCC) Atherosclerosis of aorta Paroxysmal atrial fibrillation (HCC) Atrial fibrillation Mitral valve insufficiency, unspecified etiology Aortic valve stenosis, etiology of cardiac valve disease unspecified [facility] Diagnosis Onychomycosis- Primary Dermatophytosis of nail Pain in toes of both feet Atherosclerosis of aorta (HCC) Atherosclerosis of aorta [facility] Diagnosis Mitral regurgitation and aortic stenosis- Primary Mitral valve insufficiency and aortic valve stenosis documented [facility] this encounter [facility]* Diagnosis Encounter for preprocedural cardiovascular examination Pre-operative cardiovascular examination Pre-operative cardiovascular examination Aortic valve disorder Aortic valve disorders Paroxysmal atrial fibrillation (HCC) Atrial fibrillation Mitral valve disorder Mitral valve disorders Encounter for preprocedural cardiovascular examination Pre-operative cardiovascular examination Pre-operative cardiovascular examination Aortic valve disorder Aortic valve disorders Paroxysmal atrial fibrillation (HCC) Atrial fibrillation Mitral valve disorder Mitral valve disorders [facility] Diagnosis Encounter for education- Primary Counseling NOS Pre-op exam Preoperative examination, unspecified Encounter for preprocedural cardiovascular examination Pre-operative cardiovascular examination Pre-operative cardiovascular examination Aortic valve disorder Aortic valve disorders Paroxysmal atrial fibrillation (HCC) Atrial fibrillation Mitral valve disorder Mitral valve disorders [facility] Diagnosis Encounter for preoperative anesthesiology assessment for cardiac surgery- Primary Atherosclerosis of aorta (HCC) Atherosclerosis of aorta Paroxysmal atrial fibrillation (HCC) Atrial fibrillation Encounter for preprocedural cardiovascular examination Pre-operative cardiovascular examination Pre-operative cardiovascular examination Aortic valve disorder Aortic valve disorders Paroxysmal atrial fibrillation (HCC) Atrial fibrillation Mitral valve disorder Mitral valve disorders [facility] Diagnosis Nonrheumatic aortic valve stenosis- Primary Aortic valve disorders Encounter for preprocedural cardiovascular examination Pre-operative cardiovascular examination Pre-operative cardiovascular examination Aortic valve disorder Aortic valve disorders Paroxysmal atrial fibrillation (HCC) Atrial fibrillation Mitral valve disorder Mitral valve disorders [facility] Diagnosis Surgery follow-up Follow-up examination, following unspecified surgery [facility] Diagnosis S/P aortic valve replacement- Primary Heart valve replaced by other means S/P mitral valve repair Other postprocedural status S/P patent foramen ovale closure Other postprocedural status Paroxysmal atrial fibrillation (HCC) Atrial fibrillation Essential hypertension Unspecified essential hypertension [facility] Diagnosis Paroxysmal atrial fibrillation (HCC)- Primary Atrial fibrillation Nonrheumatic mitral valve regurgitation Nonrheumatic aortic valve stenosis Aortic valve disorders Essential hypertension Unspecified essential hypertension S/P MVR (mitral valve replacement) Heart valve replaced by other means [facility] Diagnosis Onychomycosis- Primary Dermatophytosis of nail Pain in toes of both feet documented [facility] encounter [facility]* Diagnosis Onychomycosis- Primary Dermatophytosis of nail Pain in toes of both feet [facility] Diagnosis Pain in toes of both feet- Primary [facility] Diagnosis 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 Enthesopathy of ankle and tarsus, unspecified documented in this encounter [facility] general Narrative - Reported* Type Description Date Medical History anxiety Medical History hypercholesterolemia Medical History hx of strokes Medical History hypertension Medical History melanoma Medical History Parkinsonism, unspecified Medical History GERD (gastroesophageal reflux di sease) Medical History CAD (coronary artery disease) Surgical History melanoma removal on arm Surgical History back Surgical History heart valve repair AMT Other Hospital course Narrative No data available for this section [facility] Hospital Discharge instructions No data available for this section [facility] Progress note No data available for this section [facility] Reason for referral (narrative)* Outpatient Procedure (Routine) - Authorized Specialty Diagnoses / Procedures Referred By Asuncion rucker Referred To [facility] [place] Diagnoses Nonrheumatic aortic valve stenosis Procedures ECHO ECHO TTHRC R-T 2D W/WOM-MODE COMPL SPEC&COLR D Savanna Zhang MD [address] [facility] [address] [place] [address] [facility] [address] [place] [id number] Referral ID Status Reason Start Date Expiration Date Visits Requested Visits Authorized [id number] Authorized Auto-Generat ed Referral 10/01/2022 04/02/2023 1 1 [facility] for referral (narrative)* Outpatient Procedure (Routine) - Pending Review Specialty Diagnoses / Procedures Referred By Asuncion rucker Referred To [facility] Diagnoses Mitral regurgitation and aortic stenosis Procedures ECHO TRANSESOPHAGEAL ECHO TRANSESOPHAG R-T 2D W/PRB IMG ACQUISJ I&R Savanna Zhang MD [address] [facility] [address] [place] [id number] [place] [id number] Referral ID Status Reason Start Date Expiration Date Visits Requested Visits Authorized [id number] Pending Review Auto-Generat ed Referral 10/05/2022 10/05/2023 1 1 * Outpatient Procedure (Routine) - Pending Review Specialty Diagnoses / Procedures Referred By Contac t [facility] Diagnoses Mitral regurgitation and aortic stenosis Procedures ECG COMPLETE ECG ROUTINE ECG W/LEAST 12 LDS W/I&R Savanna Zhang MD [address] [place] [address] [facility] [address] [place] [address] Referral ID Status Reason Start Date Expiration Date Visits Requested Visits Authorized [id number] Pending Review Auto-Generat ed Referral 10/05/2022 10/05/2023 1 1 [facility] (n[facility]ative)* Outpatient Procedure (Routine) - Closed Specialty Diagnoses / Procedures Referred By Contac t Referred [facility] Diagnoses Paroxysmal atrial fibrillation (HCC) Procedures ECG COMPLETE ECG ROUTINE ECG W/LEAST 12 LDS W/I&R Barbara Warner APRN.CNP, DNP [address] [facility] [address] [place] [address] [facility] [address] [place] [address] Referral ID Status Reason Start Date Expiration Date V isits Requested Visits Authorized [id number] Closed Auto-Generate d Referral 01/14/2023 01/14/2024 1 1 [facility] Summary Purpose Family History No Family History Records Found Relationship Condition Age at Onset Recorded Date/T sarah brother Unknown father Malignant neoplasm Unknown Unknown Not Specified Unknown sister Unknown Advance Directives No Advanced Directives Records FoundDocuments on File Type Date Recorded 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 Advance Directive(s) 06/25/2020 10:37 AM Advance Directive(s) 06/20/2020 2:42 PM Advance Directive Response Recorded Date/ Time Advance Directives No February 2:28am Chief Complaint and Reason for Visit Chief Complaint R25.1 R26.9 Chief Complaint clogged ears Reason for Referral Specialty Diagnoses / Procedures Referred By Contac t Referred To Contact CT IMAGING Diagnoses Encounter for preprocedural cardiovascular examination Pre-operative cardiovascular examination Aortic valve disorder Paroxysmal atrial fibrillation (HCC) Mitral valve disorder Procedures CTA CHEST (GATED) W IVCON CT ANGIOGRAPHY CHEST W/CONTRAST/NONCONTRAST Brain Nieves MD [address] [place] [address] Ct Imaging Referral ID Status Reason Start Date Expiration Date V isits Requested Visits Authorized [id number] Closed Auto-Generate d Referral 11/16/2022 12/16/2023 1 1 Specialty Diagnoses / Procedures Referred By Contac t Referred To Contact Cardiothoracic Surgery Diagnoses Mitral regurgitation and aortic stenosis Procedures CONSULT TO CARDIOTHORACIC SURGERY Savanna Zhang MD [address] [place] [address] Brain Nieves MD [address] [place] [address] Referral ID Status Reason Start Date Expiration Date Visits Requested Visits Authorized [id number] Ref Not Required PCP Requested Referral 11/10/2022 11/10/2023 1 1 Additional Source Comments (unrecognized sect ion and content) No Status Records FoundNo Status Records FoundNo Status Records FoundNo Status Records FoundNo Status Records FoundNo Status Records FoundNo Status Records FoundNo Status Records Found INFORMATION SOURCE (unrecogn ized section and content) DATE CREATED AUTHOR 08/03/2019 [facility] DATE CREATED AUTHOR AUTHOR'S ORGANIZ ATION 01/03/[address] [facility] DATE CREATED AUTHOR AUTHOR'S ORGANIZ ATION 01/07/[address] [facility] DATE CREATED AUTHOR AUTHOR'S ORGANIZ ATION 11/20/2023 [facility] DATE CREATED AUTHOR AUTHOR'S ORGANIZ ATION 12/03/2023 [facility] DATE CREATED AUTHOR AUTHOR'S ORGANIZ ATION 12/08/2023 [facility] DATE CREATED AUTHOR AUTHOR'S ORGANIZ ATION 12/25/[address] [facility] DATE CREATED AUTHOR AUTHOR'S ORGANIZ ATION 12/29/2023 [facility] EPIC Source Comments (unrecognize d section and content) In the event this informatio n is protected by the Federal Confidentiality of Alcohol and Drug Abuse Patient Records regulations: The Federal rules restrict any use of the information to criminally investigate or prosecute any alcohol or drug abuse patient.[facility] HospitalIn the event this information is protected by the Federal Confidentiality of Alcohol and Drug Abuse Patient Records regulations: The Federal rules restrict any use of the information to criminally investigate or prosecute any alcohol or drug abuse patient.[facility] HospitalIn the event this information is protected by the Federal Confidentiality of Alcohol and Drug Abuse Patient Records regulations: The Federal rules restrict any use of the information to criminally investigate or prosecute any alcohol or drug abuse patient.[facility] HospitalIn the event this information is protected by the Federal Confidentiality of Alcohol and Drug Abuse Patient Records regulations: The Federal rules restrict any use of the information to criminally investigate or prosecute any alcohol or drug abuse patient.[facility] HospitalIn the event this information is protected by the Federal Confidentiality of Alcohol and Drug Abuse Patient Records regulations: The Federal rules restrict any use of the information to criminally investigate or prosecute any alcohol or drug abuse patient.[facility] HospitalIn the event this information is protected by the Federal Confidentiality of Alcohol and Drug Abuse Patient Records regulations: The Federal rules restrict any use of the information to criminally investigate or prosecute any alcohol or drug abuse patient.[facility] HospitalIn the event this information is protected by the Federal Confidentiality of Alcohol and Drug Abuse Patient Records regulations: The Federal rules restrict any use of the information to criminally investigate or prosecute any alcohol or drug abuse patient.[facility] HospitalIn the event this information is protected by the Federal Confidentiality of Alcohol and Drug Abuse Patient Records regulations: The Federal rules restrict any use of the information to criminally investigate or prosecute any alcohol or drug abuse patient.[facility] HospitalIn the event this information is protected by the Federal Confidentiality of Alcohol and Drug Abuse Patient Records regulations: The Federal rules restrict any use of the information to criminally investigate or prosecute any alcohol or drug abuse patient.[facility] HospitalIn the event this information is protected by the Federal Confidentiality of Alcohol and Drug Abuse Patient Records regulations: The Federal rules restrict any use of the information to criminally investigate or prosecute any alcohol or drug abuse patient.[facility] HospitalIn the event this information is protected by the Federal Confidentiality of Alcohol and Drug Abuse Patient Records regulations: The Federal rules restrict any use of the information to criminally investigate or prosecute any alcohol or drug abuse patient.[facility] HospitalIn the event this information is protected by the Federal Confidentiality of Alcohol and Drug Abuse Patient Records regulations: The Federal rules restrict any use of the information to criminally investigate or prosecute any alcohol or drug abuse patient.[facility] HospitalIn the event this information is protected by the Federal Confidentiality of Alcohol and Drug Abuse Patient Records regulations: The Federal rules restrict any use of the information to criminally investigate or prosecute any alcohol or drug abuse patient.[facility] HospitalIn the event this information is protected by the Federal Confidentiality of Alcohol and Drug Abuse Patient Records regulations: The Federal rules restrict any use of the information to criminally investigate or prosecute any alcohol or drug abuse patient.[facility] HospitalIn the event this information is protected by the Federal Confidentiality of Alcohol and Drug Abuse Patient Records regulations: The Federal rules restrict any use of the information to criminally investigate or prosecute any alcohol or drug abuse patient.[facility] HospitalIn the event this information is protected by the Federal Confidentiality of Alcohol and Drug Abuse Patient Records regulations: The Federal rules restrict any use of the information to criminally investigate or prosecute any alcohol or drug abuse patient.[facility] HospitalIn the event this information is protected by the Federal Confidentiality of Alcohol and Drug Abuse Patient Records regulations: The Federal rules restrict any use of the information to criminally investigate or prosecute any alcohol or drug abuse patient.[facility] HospitalIn the event this information is protected by the Federal Confidentiality of Alcohol and Drug Abuse Patient Records regulations: The Federal rules restrict any use of the information to criminally investigate or prosecute any alcohol or drug abuse patient.[facility] HospitalIn the event this information is protected by the Federal Confidentiality of Alcohol and Drug Abuse Patient Records regulations: The Federal rules restrict any use of the information to criminally investigate or prosecute any alcohol or drug abuse patient.[facility] HospitalIn the event this information is protected by the Federal Confidentiality of Alcohol and Drug Abuse Patient Records regulations: The Federal rules restrict any use of the information to criminally investigate or prosecute any alcohol or drug abuse patient.[facility] HospitalIn the event this information is protected by the Federal Confidentiality of Alcohol and Drug Abuse Patient Records regulations: The Federal rules restrict any use of the information to criminally investigate or prosecute any alcohol or drug abuse patient.[facility] HospitalIn the event this information is protected by the Federal Confidentiality of Alcohol and Drug Abuse Patient Records regulations: The Federal rules restrict any use of the information to criminally investigate or prosecute any alcohol or drug abuse patient.[facility] HospitalIn the event this information is protected by the Federal Confidentiality of Alcohol and Drug Abuse Patient Records regulations: The Federal rules restrict any use of the information to criminally investigate or prosecute any alcohol or drug abuse patient.[facility] HospitalIn the event this information is protected by the Federal Confidentiality of Alcohol and Drug Abuse Patient Records regulations: The Federal rules restrict any use of the information to criminally investigate or prosecute any alcohol or drug abuse patient.[facility] HospitalIn the event this information is protected by the Federal Confidentiality of Alcohol and Drug Abuse Patient Records regulations: The Federal rules restrict any use of the information to criminally investigate or prosecute any alcohol or drug abuse patient.[facility] HospitalIn the event this information is protected by the Federal Confidentiality of Alcohol and Drug Abuse Patient Records regulations: The Federal rules restrict any use of the information to criminally investigate or prosecute any alcohol or drug abuse patient.[facility] HospitalIn the event this information is protected by the Federal Confidentiality of Alcohol and Drug Abuse Patient Records regulations: The Federal rules restrict any use of the information to criminally investigate or prosecute any alcohol or drug abuse patient.[facility] HospitalIn the event this information is protected by the Federal Confidentiality of Alcohol and Drug Abuse Patient Records regulations: The Federal rules restrict any use of the information to criminally investigate or prosecute any alcohol or drug abuse patient.[facility] HospitalIn the event this information is protected by the Federal Confidentiality of Alcohol and Drug Abuse Patient Records regulations: The Federal rules restrict any use of the information to criminally investigate or prosecute any alcohol or drug abuse patient.[facility] HospitalIn the event this information is protected by the Federal Confidentiality of Alcohol and Drug Abuse Patient Records regulations: The Federal rules restrict any use of the information to criminally investigate or prosecute any alcohol or drug abuse patient.[facility] HospitalIn the event this information is protected by the Federal Confidentiality of Alcohol and Drug Abuse Patient Records regulations: The Federal rules restrict any use of the information to criminally investigate or prosecute any alcohol or drug abuse patient.[facility] HospitalIn the event this information is protected by the Federal Confidentiality of Alcohol and Drug Abuse Patient Records regulations: The Federal rules restrict any use of the information to criminally investigate or prosecute any alcohol or drug abuse patient.[facility] HospitalIn the event this information is protected by the Federal Confidentiality of Alcohol and Drug Abuse Patient Records regulations: The Federal rules restrict any use of the information to criminally investigate or prosecute any alcohol or drug abuse patient.[facility] HospitalIn the event this information is protected by the Federal Confidentiality of Alcohol and Drug Abuse Patient Records regulations: The Federal rules restrict any use of the information to criminally investigate or prosecute any alcohol or drug abuse patient.[facility] HospitalIn the event this information is protected by the Federal Confidentiality of Alcohol and Drug Abuse Patient Records regulations: The Federal rules restrict any use of the information to criminally investigate or prosecute any alcohol or drug abuse patient.[facility] HospitalIn the event this information is protected by the Federal Confidentiality of Alcohol and Drug Abuse Patient Records regulations: The Federal rules restrict any use of the information to criminally investigate or prosecute any alcohol or drug abuse patient.[facility] HospitalIn the event this information is protected by the Federal Confidentiality of Alcohol and Drug Abuse Patient Records regulations: The Federal rules restrict any use of the information to criminally investigate or prosecute any alcohol or drug abuse patient.[facility] HospitalIn the event this information is protected by the Federal Confidentiality of Alcohol and Drug Abuse Patient Records regulations: The Federal rules restrict any use of the information to criminally investigate or prosecute any alcohol or drug abuse patient.[facility] Reason for Visit (unrecogniz ed section and content) Reason Comments Refill Request Reason Comments Results Reason Comments Consult Dr. 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 Assessment Reason Comments Education Of Patient/family Specialty Diagnoses / Procedures Referred By Contac t Referred To Contact CT IMAGING Diagnoses Encounter for preprocedural cardiovascular examination Pre-operative cardiovascular examination Aortic valve disorder Paroxysmal atrial fibrillation (HCC) Mitral valve disorder Procedures CTA CHEST (GATED) W IVCON CT ANGIOGRAPHY CHEST W/CONTRAST/NONCONTRAST Brain Nieves MD [address] [place] [address] Ct Imaging Referral ID Status Reason Start Date Expiration Date V isits Requested Visits Authorized [id number] Closed Auto-Generate d Referral 11/16/2022 12/16/2023 1 1 Reason Comments Pre-Op Exam Reason Comments Follow Up Phone Call [facility] 1st atte mpt Reason Comments Patient Question Reason Comments Radio Main J1 Reason Comments Established Patient Hospital Follow Up Specialty Diagnoses / Procedures Referred By Contac t [facility] Diagnoses Paroxysmal atrial fibrillation (HCC) Procedures ECG COMPLETE ECG ROUTINE ECG W/LEAST 12 LDS W/I&R Barbara Warner, NABIL.POISER, DNP [address] [place] [address] [place] [address] Referral ID Status Reason Start Date Expiration Date V isits Requested Visits Authorized [id number] Closed Auto-Generate d Referral 01/14/2023 01/14/2024 1 1 Reason Comments Debridement of Nail Reason Comments Radiology XR Reason Comments Medication Question Reason Onset Date Comments Refill Request 07/08/2023 Reason Comments Shoe Inserts Returning Patient's Call Phoned patient and left detailed message that he can call [facility] and gave him the number to order another pair of orthotics. Since insurance doesn't cover them it would be more cost effective. 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 Relationship Specialty Start Date End Date Raul Dumont DO PCP - General 01/22/10 Floyd Spaulding MD [address] [address] Primary Staff Physician Cardiology 08/23/18 Team Status: Inactive Member Role Status Dates Raul Dumont DO Primary Care Provider Active Raghav Hubbard MD Attending Provider Active [employer] Officer Relationship Specialty Start Date End Date Raul Dumont DO PCP - General 01/22/10 Floyd Spaulding MD [address] [address] Primary Staff Physician Cardiology 08/23/18 [employer] Police Officer Relationship Specialty Start Date End Date Raul Dumont DO PCP - General 01/22/10 Floyd Spaulding MD [address] [address] Primary Staff Physician Cardiology 08/23/18 [employer] Police Officer Relationship Specialty Start Date End Date Raul Dumont DO PCP - General 01/22/10 Floyd Spaulding MD [address] [address] Primary Staff Physician Cardiology 08/23/18 [employer]othes Police Officer Relationship Specialty Start Date End Date Raul Dumont DO PCP - General 01/22/10 Floyd Spaulding MD [address] [address] Primary Staff Physician Cardiology 08/23/18 [employer] Police Officer Relationship Specialty Start Date End Date Raul Dumont DO PCP - General 01/22/10 Floyd Spaulding MD [address] [address] Primary Staff Physician Cardiology 08/23/18 Savanna Zhang MD [address] [address] Primary Staff Physician Cardiology 10/05/22 [employer] Clothes Police Officer Relationship Specialty Start Date End Date Raul Dumont DO PCP - General 01/22/10 Floyd Spaulding MD [address] [address] Primary Staff Physician Cardiology 08/23/18 Savanna Zhang MD [address] [address] Primary Staff Physician Cardiology 10/05/22 [employer]othes Police Officer Relationship Specialty Start Date End Date Raul Dumont DO PCP - General 01/22/10 Floyd Spaulding MD [address] [address] Primary Staff Physician Cardiology 08/23/18 Savanna Zhang MD [address] [address] Primary Staff Physician Cardiology 10/05/22 [employer]othes Police Officer Relationship Specialty Start Date End Date Raul Dumont DO PCP - General 01/22/10 Floyd Spaulding MD [address] [address] Primary Staff Physician Cardiology 08/23/18 Savanna Zhang MD [address] [address] Primary Staff Physician Cardiology 10/05/22 Plain Clothes Police Officer Relationship Specialty Start Date End Date Raul Dumont DO PCP - General 01/22/10 Floyd Spaulding MD [address] [address] Primary Staff Physician Cardiology 08/23/18 Savanna Zhang MD [address] [address] Primary Staff Physician Cardiology 10/05/22 [employer]othes Police Officer Relationship Specialty Start Date End Date Raul Dumont DO PCP - General 01/22/10 Floyd Spaulding MD [address] [address] Primary Staff Physician Cardiology 08/23/18 Savanna Zhang MD [address] [address] Primary Staff Physician Cardiology 10/05/22 Brain Nieves MD [address] [place] [address] Surgeon Cardiac Surg 11/10/22 [employer]othes Police Officer Relationship Specialty Start Date End Date Raul Dumont DO PCP - General 01/22/10 Floyd Spaulding MD [address] [address] Primary Staff Physician Cardiology 08/23/18 Savanna Zhang MD [address] [address] Primary Staff Physician Cardiology 10/05/22 Brain Nieves MD [address] [place] [address] Surgeon Cardiac Surg 11/10/22 Plain [employer]othes Police Officer Relationship Specialty Start Date End Date Raul Dumont DO PCP - General 01/22/10 Floyd Spaulding MD [address] [facility] [address] [place] [address] Primary Staff Physician Cardiology 08/23/18 Savanna Zhang MD [address] [address] Primary Staff Physician Cardiology 10/05/22 Brain Nieves MD [address] [place] [address] Surgeon Cardiac Surg 11/10/22 Kostas Philip DO [address] [place] [address] Cardiology 11/17/22 [employer]othes Police Officer Relationship Specialty Start Date End Date Raul Dumont DO PCP - General 01/22/10 Floyd Spaulding MD [address] [place] [address] Primary Staff Physician Cardiology 08/23/18 Savanna Zhang MD [address] [address] Primary Staff Physician Cardiology 10/05/22 Brain Nieves MD [address] [place] [address] Surgeon Cardiac Surg 11/10/22 Kostas Philip DO [address] [place] [address] Cardiology 11/17/22 [employer]othes Police Officer Relationship Specialty Start Date End Date Raul Dumont DO PCP - General 01/22/10 Floyd Spaulding MD [address] [facility] [address] [place] [address] Primary Staff Physician Cardiology 08/23/18 Savanna Zhang MD [address] [facility] [address] [place] [address] Primary Staff Physician Cardiology 10/05/22 Brain Nieves MD [address] [facility] [address] Surgeon Cardiac Surg 11/10/22 Kostas Philip, DO [address] [place] [address] Cardiology 11/17/22 [employer]othes Police Officer Relationship Specialty Start Date End Date Raul Dumont DO PCP - General 01/22/10 Floyd Spaulding MD [address] [address] Primary Staff Physician Cardiology 08/23/18 Savanna Zhang MD [address] [address] Primary Staff Physician Cardiology 10/05/22 Brain Nieves MD [address] [place] [address] Surgeon Cardiac Surg 11/10/22 Kostas Philip, DO [address] [place] [address] Cardiology 11/17/22 [employer]othes Police Officer Relationship Specialty Start Date End Date Raul Dumont DO PCP - General 01/22/10 Floyd Spaulding MD [address] [address] Primary Staff Physician Cardiology 08/23/18 Savanna Zhang MD [address] [address] Primary Staff Physician Cardiology 10/05/22 Brain Nieves MD [address] [place] [address] Surgeon Cardiac Surg 11/10/22 Kostas Philip DO [address] [place] [address] Cardiology 11/17/22 [employer]othes Police Officer Relationship Specialty Start Date End Date Raul Dumont DO PCP - General 01/22/10 Floyd Spaulding MD [address] [address] Primary Staff Physician Cardiology 08/23/18 Savanna Zhang MD [address] [address] Primary Staff Physician Cardiology 10/05/22 Brain Nieves MD [address] [place] [address] Surgeon Cardiac Surg 11/10/22 Kostas Philip DO [address] [place] [address] Cardiology 11/17/22 [employer]othes Police Officer Relationship Specialty Start Date End Date Raul Dumont DO PCP - General 01/22/10 Floyd Spaulding MD [address] [place] [address] Primary Staff Physician Cardiology 08/23/18 Savanna Zhang MD [address] [place] [address] Primary Staff Physician Cardiology 10/05/22 Brain Nieves MD [address] [place] [address] Surgeon Cardiac Surg 11/10/22 Kostas Philip DO [address] [place] [address] Cardiology 11/17/22 Plain [employer]othes Police Officer Relationship Specialty Start Date End Date Raul Dumont DO PCP - General 01/22/10 Floyd Spaulding MD [address] [facility] [address] [place] [address] Primary Staff Physician Cardiology 08/23/18 Savanna Zhang MD [address] [facility] [address] [place] [address] Primary Staff Physician Cardiology 10/05/22 Brain Nieves MD [address] [place] [address] Surgeon Cardiac Surg 11/10/22 Kostas Philip DO [address] [place] [address] Cardiology 11/17/22 Plain [employer]othes Police Officer Relationship Specialty Start Date End Date Raul Dumont DO PCP - General 01/22/10 Floyd Spaulding MD [address] [address] Primary Staff Physician Cardiology 08/23/18 Savanna Zhang MD [address] [facility] [address] [place] [address] Primary Staff Physician Cardiology 10/05/22 Brain Nieves MD [address] [place] [address] Surgeon Cardiac Surg 11/10/22 Kostas Philip DO [address] [place] [address] Cardiology 11/17/22 Plain [employer]othes Police Officer Relationship Specialty Start Date End Date Raul Dumont DO PCP - General 01/22/10 Floyd Spaulding MD [address] [address] Primary Staff Physician Cardiology 08/23/18 Savanna Zhang MD [address] [address] Primary Staff Physician Cardiology 10/05/22 Brain Nieves MD [address] [place] [address] Surgeon Cardiac Surg 11/10/22 Kostas Philip DO [address] [place] [address] Cardiology 11/17/22 [employer]othes Police Officer Relationship Specialty Start Date End Date Raul Dumont DO PCP - General 01/22/10 Floyd Spaulding MD [address] [place] [address] Primary Staff Physician Cardiology 08/23/18 Savanna Zhang MD [address] [place] [address] Primary Staff Physician Cardiology 10/05/22 Brain Nieves MD [address] [place] [address] Surgeon Cardiac Surg 11/10/22 Kostas Philip DO [address] [place] [address] Cardiology 11/17/22 Plain [employer]othes Police Officer Relationship Specialty Start Date End Date Raul Dumont DO PCP - General 01/22/10 Floyd Spaulding MD [address] [place] [address] Primary Staff Physician Cardiology 08/23/18 Savanna Zhang MD [address] [place] [address] Primary Staff Physician Cardiology 10/05/22 Brain Nieves MD [address] [place] [address] Surgeon Cardiac Surg 11/10/22 Kostas Philip DO [address] [place] [address] Cardiology 11/17/22 [employer]othes Police Officer Relationship Specialty Start Date End Date Julia Raul Uribe PCP - General 01/22/10 Floyd Spaulding MD [address] [place] [address] Primary Staff Physician Cardiology 08/23/18 Savanna Zhang MD [address] [address] Primary Staff Physician Cardiology 10/05/22 Brain Nieves MD [address] [place] [address] Surgeon Cardiac Surg 11/10/22 Med KostasDO [address] [place] [address] Cardiology 11/17/22 [employer] Police Officer Relationship Specialty Start Date End Date Julia Raul UribeDO PCP - General 01/22/10 Floyd Spaulding MD [address] [place] [address] Primary Staff Physician Cardiology 08/23/18 Savanna Zhang MD [address] [facility] [address] [place] [address] Primary Staff Physician Cardiology 10/05/22 Brain Nieves MD [address] [place] [address] Surgeon Cardiac Surg 11/10/22 Kostas Philip DO [address] [place] [address] Cardiology 11/17/22 Plain [employer]othes Police Officer Relationship Specialty Start Date End Date Raul Dumont DO PCP - General 01/22/10 Floyd Spaulding MD [address] [place] [address] Primary Staff Physician Cardiology 08/23/18 Savanna Zhang MD [facility] [address] [place] [address] Primary Staff Physician Cardiology 10/05/22 Brain Nieves MD [address] [place] [address] Surgeon Cardiac Surg 11/10/22 Kostas Philip DO [address] [place] [address] Cardiology 11/17/22 Plain [employer]othes Police Officer Relationship Specialty Start Date End Date Raul Dumont DO PCP - General 01/22/10 Floyd Spaulding MD [address] [facility] [address] [place] [address] Primary Staff Physician Cardiology 08/23/18 Savanna Zhang MD [address] [facility] [address] [place] [address] Primary Staff Physician Cardiology 10/05/22 Brain Nieves MD [address] [place] [address] Surgeon Cardiac Surg 11/10/22 Kostas Philip DO [address] [place] [address] Cardiology 11/17/22 [employer]othes Police Officer Relationship Specialty Start Date End Date Raul Dumont DO PCP - General 01/22/10 Floyd Spaulding MD [address] [facility], [address] [place], [place] [address] Primary Staff Physician Cardiology 08/23/18 Savanna Zhang MD [address] [facility], [address] [place] [address] Primary Staff Physician Cardiology 10/05/22 Brain Nieves MD [address] [place] [address] Surgeon Cardiac Surg 11/10/22 Kostas Philip DO [address] [place] [address] Cardiology 11/17/22 [employer]othes Police Officer Relationship Specialty Start Date End Date Raul Dumont DO PCP - General 01/22/10 Floyd Spaulding MD [address] [facility], [address] [place] [address] Primary Staff Physician Cardiology 08/23/18 Savanna Zhang MD [address] [facility], [address] [place] [address] Primary Staff Physician Cardiology 10/05/22 Brain Nieves MD [address] [place] [address] Surgeon Cardiac Surg 11/10/22 Kostas Philip DO [address] [place] [address] Cardiology 11/17/22 [employer]othes Police Officer Relationship Specialty Start Date End Date Raul Dumont DO PCP - General 01/22/10 Floyd Spaulding MD [address] [facility], [facility] [place] [address] Primary Staff Physician Cardiology 08/23/18 Savanna Zhang MD [address] [facility], [facility], [address] [place] [address] Primary Staff Physician Cardiology 10/05/22 Brain Nieves MD [address] [place] [address] Surgeon Cardiac Surg 11/10/22 Kostas Philip DO [address] [place] [address] Cardiology 11/17/22 Plain [employer]othes Police Officer Relationship Specialty Start Date End Date Raul Dumont DO PCP - General 01/22/10 Floyd Spaulding MD [address] [facility], [facility], [address] [place] [address] Primary Staff Physician Cardiology 08/23/18 Savanna Zhang MD [address] [facility], [facility], [address] [place] [address] Primary Staff Physician Cardiology 10/05/22 Brain Nieves MD [address] [place] [address] Surgeon Cardiac Surg 11/10/22 Kostas Philip DO [address] [place] [address] Cardiology 11/17/22 [employer]othes Police Officer Relationship Specialty Start Date End Date Raul Dumont DO PCP - General 01/22/10 Floyd Spaulding MD [address] [facility], [facility], [address] [place] [address] Primary Staff Physician Cardiology 08/23/18 Savanna Zhang MD [address] [facility], [facility], [address] [place] [address] Primary Staff Physician Cardiology 10/05/22 Brain Nieves MD [address] [place] [address] Surgeon Cardiac Surg 11/10/22 Kostas Philip DO [address] [place] [address] Cardiology 11/17/22 [employer]othes Police Officer Relationship Specialty Start Date End Date Raul Dumont DO PCP - General 01/22/10 Floyd Spaulding MD [address] [facility], [address] [place], [place] [id number] Primary Staff Physician Cardiology 08/23/18 Savanna Zhang MD [address] [facility], [facility], [address] [place], [place] [address] Primary Staff Physician Cardiology 10/05/22 Brain Nieves MD [address] [place] [id number] Surgeon Cardiac Surg 11/10/22 Kostas Philip DO [address] [place] [address] Cardiology 11/17/22 Goals (unrecognized section and content) Goals may be documented in a n alternate section No data available for this section No data available for this section No data available for this section No data available for this sectionNo Information No data available for this sectionNo InformationGoals may be documented in an alternate section FOR RECORDS PERTAINING TO PATIENTS WHO ARE OR HAVE BEEN ENROLLED IN A CHEMICAL DEPENDENCY/SUBSTANCEABUSE PROGRAM, SOME INFORMATION MAY BE OMITTED. This clinical summary was aggregated from multiple sources. Caution should be exercised in using it in the provision of clinical care. This summary normalizes information from multiple sources, and as a consequence, information in this document may materially change the coding, format and clinical context of patient data. In addition, data may be omitted in some cases. CLINICAL DECISIONS SHOULD BE BASED ON THE PRIMARY CLINICAL RECORDS. [facility]. provides no warranty or guarantee of the accuracy or completeness of information in this document.
[2024-02-04 20:38] VITALS: BP 160/70; PULSE 76; TEMP 36.8; O2SAT 96; BMI 28.1
--- NOTE | 2024-02-04 21:06 | ED.GENADUL1 ---
Documented by User: ESTRELLA Mcmillan 02/04/24 21:17 HPI HPI - General Adult General Chief complaint: Nausea/Vomiting/Diarrhea Stated complaint: DEHYDRATED Time Seen by Provider: 02/04/24 20:57 Source: patient and family Mode of arrival: walk-in Limitations: no limitations History of Present Illness HPI narrative: Patient is a 83-year-old male presents to the ER with his family. Chief concern is dehydration. Patient has a known history of Parkinson's, trouble with balance and gait and was using a walker at home when he became dizzy and fell. Patient denies loss of consciousness and denies hitting his head. He reports arthritis in various joints including his knee but denies any new injuries from his fall. He is on Xarelto. 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 Family at bedside confirm if he gets shocked it will kill him. Patient states he did not drink water today and started having dry heaves at home. He denies any chest pain or discomfort and is not with any shortness of breath on arrival. Patient states the Parkinson's makes him unsteady and it is worse when he is dehydrated. Patient denies any diarrhea. He reports nausea still present. Denies abdominal pain. The family at bedside do not know if he is a DNR comfort care arrest or DNR comfort care. Patient does have identifiable wristband on the right wrist. Related Data Home Medications ?Medication ?Instructions ?Recorded ?Confirmed carbidopa 10 mg-levodopa 100 mg tab 02/04/24 tablet escitalopram oxalate 10 mg tablet mg 02/04/24 finasteride 5 mg tablet mg 02/04/24 losartan 25 mg tablet mg 02/04/24 melatonin 5 mg capsule mg 02/04/24 metoprolol succinate 25 mg mg PO 02/04/24 tablet,extended release 24 hr pantoprazole 40 mg tablet,delayed mg PO 02/04/24 release rivaroxaban 20 mg tablet (Xarelto) mg 02/04/24 Allergies Allergy/AdvReac Type Severity Reaction Status Date / Time Sulfa (Sulfonamide Allergy Unknown Unknown Verified 02/04/24 20:38 Antibiotics) Opioid HPI Opioid Management Most Recent Opioid Data: No Data to Display Review of Systems ROS Constitutional Denies: fever or chills Eyes Denies: change in vision or blurry vision Ears, nose, mouth, and throat Denies: throat pain or neck pain Cardiovascular Denies: chest pain or palpitations Respiratory Denies: shortness of breath or cough Gastrointestinal Denies: abdominal pain, nausea or vomiting Genitourinary Denies: painful urination or urinary frequency Musculoskeletal Reports: joint pain (arthritis, denies new injury); Denies: back pain or neck pain Integumentary/Breast Denies: rash Neurological Reports: dizziness (intermittent with parkinson disease per pt. ); Denies: headache or numbness in extremities Psychiatric Denies: anxiety Endocrine Denies: excessive urination Hematologic/Lymphatic Denies: easy bruising Allergic/Immunologic Denies: hives Exam Narrative Exam Narrative: Nurses notes and vital signs reviewed and patient is not hypoxic. General: The patient appears well and in no apparent distress. Patient is resting comfortably on cart. Patient easily conversing at the bedside. Skin: Warm, dry, no pallor noted. No Evidence of skin injury. Head: Normocephalic, atraumatic Neck: Supple, trachea mid-line, no tenderness, no lymphadenopathy Eye: Pupils are equal, round and reactive to light, EOMI Ears, Nose, Mouth, and Throat: TM are clear, normal light reflex, minimal cerumen in the left. Oral mucosa is moist, no posterior oropharynx erythema or hypertrophy, uvula is mid-line Cardiovascular: 2/6 systolic ejection murmur. Respiratory: Patient is in no distress, no accessory muscle use, lungs are clear to auscultation, no wheezing, rales or rhonchi. Chest Wall: no tenderness Back: non-tender, no CVA tenderness Musculoskeletal: normal ROM, no tenderness, no swelling GI: Normal bowel sounds, no tenderness to palpation, no masses appreciated. No rebound, guarding, or rigidity noted. Neurological: A&O x4 Psychiatric: Cooperative Constitutional Vital Signs, click to edit/add: Last Vital Signs Temp 98.3 F 02/04/24 20:38 Pulse 73 02/04/24 22:27 Resp 18 02/04/24 22:27 BP 140/86 02/04/24 22:27 Pulse Ox 99 02/04/24 22:27 O2 Del Method Room Air 02/04/24 20:38 Course Vital Signs Vital signs: Vital Signs Temperature 98.3 F 08/30/24 20:38 Pulse Rate 76 02/04/24 20:38 Respiratory Rate 18 02/04/24 20:38 Blood Pressure 160/70 H 02/04/24 20:38 Pulse Oximetry 96 02/04/24 20:38 Oxygen Delivery Method Room Air 02/04/24 20:38 Temperature 98.3 F 02/04/24 20:38 Pulse Rate 73 02/04/24 22:27 Respiratory Rate 18 02/04/24 22:27 Blood Pressure 140/86 02/04/24 22:27 Pulse Oximetry 99 02/04/24 22:27 Oxygen Delivery Method Room Air 02/04/24 20:38 Medical Decision Making MDM Narrative Medical decision making narrative: Patient identifies as DNR. We discussed concerns of fall, potential for head injury with blood thinner use even if his head did not strike an object with coup contrecoup forces discussed in layman's terms. The patient and his family both declined CT of the brain. States he sees a neurologist and family doctor who can work this up further if clinically indicated. I expressed concern that a small bleed on a blood thinner could result in . Patient verbalized understanding of this and declines CT imaging with the acceptance of his family at bedside. If I go to sleep and do not wake up it would be a blessing. Patient notes that he does not want to have any shocking or CPR consistent with his DNR wristband given his prior heart history. Patient's main concern is that he is dehydrated and is requesting IV fluids as he did not drink during the day, was only outside briefly for minutes per family but then started dry heaving at home. Patient states he was using his walker at the time of his fall and denies loss of consciousness. Patient notes that his Parkinson's despite medications is progressing and affecting his balance. Patient and family verbally aware that we cannot rule out any intracranial process given his blood thinner use and fall but recommend further discussion with his PCP about the risks and benefits of blood thinner use with unsteady gait and frequent falls. Family will be provided information on DNR orders regarding comfort care or comfort care arrest status, as they appear unfamiliar with the patient's DNR wristband citing patient's wishes. Patient medicated with 1 L IV fluids, IV Zofran 4 mg. lab pending. Lab Data Labs: Lab Results 02/04/24 02/04/24 Range/Units 20:58 22:15 WBC 7.0 (4.0-11.0) 10^3/uL RBC 3.86 L (4.70-6.10) 10^6/uL Hgb 11.5 L (14.0-18.0) g/dL Hct 35.4 L (42.0-54.0) % MCV 91.7 (80.0-94.0) fL MCH 29.8 (25.9-34.0) pg MCHC 32.5 (29.9-35.2) g/dL RDW 13.8 (11.0-15.0) % Plt Count 162 (150-450) 10^3/uL MPV 8.6 L (9.5-13.5) fL Seg Neuts % (Manual) 82.0 H (43.0-75.0) Lymphocytes % (Manual) 7.0 L (20.5-60.0) % Atypical Lymphs % (Man) 1.0 % Monocytes % (Manual) 8.0 (1.7-12.0) % Eosinophils % (Manual) 1.0 (0.9-7.0) % Basophils % (Manual) 1.0 (0.2-2.0) % Neutrophils # (Manual) 5.74 (1.4-6.5) 10^3/uL Lymphocytes # (Manual) 0.49 L (1.20-3.80) 10^3/uL Abs Atypical Lymphs Man 0.07 Monocytes # (Manual) 0.56 (0.30-0.80) 10^3/uL Eosinophils # (Manual) 0.07 (0.00-0.70) 10^3/uL Basophils # (Manual) 0.07 (0.00-0.10) 10^3/uL Toxic Granulation 2+ PT 10.8 (9.0-11.6) sec INR 1.02 APTT 28.8 (22.3-36.2) sec Sodium 135 L (136-145) mmol/L Potassium 4.2 (3.5-5.1) mmol/L Chloride 99 (98-107) mmol/L Carbon Dioxide 30.9 (21.0-32.0) mmol/L Anion Gap 9.3 BUN 24.0 H (7.0-18.0) mg/dL Creatinine 1.23 (0.70-1.30) mg/dL Est GFR ( Amer) >60 (>=60) Est GFR (Non-Af Amer) 56 L (>=60) BUN/Creatinine Ratio 19.5 Glucose 114 H (74-106) mg/dL Calcium 8.8 (8.5-10.1) mg/dL Total Bilirubin 0.4 (0.2-1.0) mg/dL AST 21 (15-37) U/L ALT 16 (16-63) U/L Alkaline Phosphatase 105 (46-116) U/L Troponin I High Sens 12.3 (4.0-76.1) pg/mL Total Protein 6.7 (6.4-8.2) g/dL Albumin 3.6 (3.4-5.0) g/dL Globulin 3.1 g/dL Albumin/Globulin Ratio 1.2 Urine Color Lt. yellow (YELLOW) Urine Clarity Clear (CLEAR) Urine pH 7.0 (5.0-9.0) Ur Specific [place] 1.010 (1.005-1.025) Urine Protein Negative (NEG/TRACE) mg/dL Urine Glucose (UA) Negative (NEGATIVE) mg/dL Urine Ketones Negative (NEGATIVE) mg/dL Urine Occult Blood Negative (NEGATIVE) Urine Nitrite Negative (NEGATIVE) Urine Bilirubin Negative (NEGATIVE) Urine Urobilinogen 0.2 (0.2-1.0) EU/dL Ur Leukocyte Esterase Negative (NEGATIVE) ECG Data Attestation: I personally reviewed and interpreted this ECG as follows: Interpretation: EKG interpretation: Emergency Department physician interpretation, normal sinus rhythm 72 , no ectopy, no ST segment elevation, left axis deviation. Discharge Plan Discharge Stand Alone Forms: Work/School Release, Portal Instructions Chief Complaint: Nausea/Vomiting/Diarrhea Clinical Impression: Fall, Dehydration, Parkinson's disease, Nausea Patient Disposition: Home, Self-Care Prescriptions / Home Meds: No Action carbidopa-levodopa 10-100 mg tablet metoprolol succinate 25 mg tablet extended release 24 hr PO melatonin 5 mg capsule pantoprazole 40 mg tablet,delayed release (DR/EC) PO losartan 25 mg tablet finasteride 5 mg tablet escitalopram oxalate 10 mg tablet Xarelto 20 mg tablet Print Language: Portuguese Instructions: Dehydration (ED), Acute Nausea and Vomiting (ED), Fall Prevention (ED) Referrals: RAUL DUMONT [Primary Care Provider] - 1 week Documented by User: Gerry Brandt MD 02/04/24 22:32 HPI HPI - General Adult General Chief complaint: Nausea/Vomiting/Diarrhea Stated complaint: DEHYDRATED Time Seen by Provider: 02/04/24 20:57 Related Data Home Medications ?Medication ?Instructions ?Recorded ?Confirmed carbidopa 10 mg-levodopa 100 mg tab 02/04/24 tablet escitalopram oxalate 10 mg tablet mg 02/04/24 finasteride 5 mg tablet mg 02/04/24 losartan 25 mg tablet mg 02/04/24 melatonin 5 mg capsule mg 02/04/24 metoprolol succinate 25 mg mg PO 02/04/24 tablet,extended release 24 hr pantoprazole 40 mg tablet,delayed mg PO 02/04/24 release rivaroxaban 20 mg tablet (Xarelto) mg 02/04/24 Allergies Allergy/AdvReac Type Severity Reaction Status Date / Time Sulfa (Sulfonamide Allergy Unknown Unknown Verified 02/04/24 20:38 Antibiotics) Opioid HPI Opioid Management Most Recent Opioid Data: No Data to Display Exam Constitutional Vital Signs, click to edit/add: Last Vital Signs Temp 98.3 F 02/04/24 20:38 Pulse 73 02/04/24 22:27 Resp 18 02/04/24 22:27 BP 140/86 02/04/24 22:27 Pulse Ox 99 02/04/24 22:27 O2 Del Method Room Air 02/04/24 20:38 Course Vital Signs Vital signs: Vital Signs Temperature 98.3 F 02/04/24 20:38 Pulse Rate 76 02/04/24 20:38 Respiratory Rate 18 02/04/24 20:38 Blood Pressure 160/70 H 02/04/24 20:38 Pulse Oximetry 96 02/04/24 20:38 Oxygen Delivery Method Room Air 02/04/24 20:38 Temperature 98.3 F 02/04/24 20:38 Pulse Rate 73 02/04/24 22:27 Respiratory Rate 18 02/04/24 22:27 Blood Pressure 140/86 02/04/24 22:27 Pulse Oximetry 99 02/04/24 22:27 Oxygen Delivery Method Room Air 02/04/24 20:38 Medical Decision Making MDM Narrative Medical decision making narrative: Patient identifies as DNR. We discussed concerns of fall, potential for head injury with blood thinner use even if his head did not strike an object with coup contrecoup forces discussed in layman's terms. The patient and his family both declined CT of the brain. States he sees a neurologist and family doctor who can work this up further if clinically indicated. I expressed concern that a small bleed on a blood thinner could result in . Patient verbalized understanding of this and declines CT imaging with the acceptance of his family at bedside. If I go to sleep and do not wake up it would be a blessing. Patient notes that he does not want to have any shocking or CPR consistent with his DNR wristband given his prior heart history. Patient's main concern is that he is dehydrated and is requesting IV fluids as he did not drink during the day, was only outside briefly for minutes per family but then started dry heaving at home. Patient states he was using his walker at the time of his fall and denies loss of consciousness. Patient notes that his Parkinson's despite medications is progressing and affecting his balance. Patient and family verbally aware that we cannot rule out any intracranial process given his blood thinner use and fall but recommend further discussion with his PCP about the risks and benefits of blood thinner use with unsteady gait and frequent falls. Family will be provided information on DNR orders regarding comfort care or comfort care arrest status, as they appear unfamiliar with the patient's DNR wristband citing patient's wishes. Patient medicated with 1 L IV fluids, IV Zofran 4 mg. lab pending. patient is feeling better after hydration and zofran and is ready to go. Lab Data Labs: Lab Results 02/04/24 02/04/24 Range/Units 20:58 22:15 WBC 7.0 (4.0-11.0) 10^3/uL RBC 3.86 L (4.70-6.10) 10^6/uL Hgb 11.5 L (14.0-18.0) g/dL Hct 35.4 L (42.0-54.0) % MCV 91.7 (80.0-94.0) fL MCH 29.8 (25.9-34.0) pg MCHC 32.5 (29.9-35.2) g/dL RDW 13.8 (11.0-15.0) % Plt Count 162 (150-450) 10^3/uL MPV 8.6 L (9.5-13.5) fL Seg Neuts % (Manual) 82.0 H (43.0-75.0) Lymphocytes % (Manual) 7.0 L (20.5-60.0) % Atypical Lymphs % (Man) 1.0 % Monocytes % (Manual) 8.0 (1.7-12.0) % Eosinophils % (Manual) 1.0 (0.9-7.0) % Basophils % (Manual) 1.0 (0.2-2.0) % Neutrophils # (Manual) 5.74 (1.4-6.5) 10^3/uL Lymphocytes # (Manual) 0.49 L (1.20-3.80) 10^3/uL Abs Atypical Lymphs Man 0.07 Monocytes # (Manual) 0.56 (0.30-0.80) 10^3/uL Eosinophils # (Manual) 0.07 (0.00-0.70) 10^3/uL Basophils # (Manual) 0.07 (0.00-0.10) 10^3/uL Toxic Granulation 2+ PT 10.8 (9.0-11.6) sec INR 1.02 APTT 28.8 (22.3-36.2) sec Sodium 135 L (136-145) mmol/L Potassium 4.2 (3.5-5.1) mmol/L Chloride 99 (98-107) mmol/L Carbon Dioxide 30.9 (21.0-32.0) mmol/L Anion Gap 9.3 BUN 24.0 H (7.0-18.0) mg/dL Creatinine 1.23 (0.70-1.30) mg/dL Est GFR ( Amer) >60 (>=60) Est GFR (Non-Af Amer) 56 L (>=60) BUN/Creatinine Ratio 19.5 Glucose 114 H (74-106) mg/dL Calcium 8.8 (8.5-10.1) mg/dL Total Bilirubin 0.4 (0.2-1.0) mg/dL AST 21 (15-37) U/L ALT 16 (16-63) U/L Alkaline Phosphatase 105 (46-116) U/L Troponin I High Sens 12.3 (4.0-76.1) pg/mL Total Protein 6.7 (6.4-8.2) g/dL Albumin 3.6 (3.4-5.0) g/dL Globulin 3.1 g/dL Albumin/Globulin Ratio 1.2 Urine Color Lt. yellow (YELLOW) Urine Clarity Clear (CLEAR) Urine pH 7.0 (5.0-9.0) Ur Specific [place] 1.010 (1.005-1.025) Urine Protein Negative (NEG/TRACE) mg/dL Urine Glucose (UA) Negative (NEGATIVE) mg/dL Urine Ketones Negative (NEGATIVE) mg/dL Urine Occult Blood Negative (NEGATIVE) Urine Nitrite Negative (NEGATIVE) Urine Bilirubin Negative (NEGATIVE) Urine Urobilinogen 0.2 (0.2-1.0) EU/dL Ur Leukocyte Esterase Negative (NEGATIVE) Discharge Plan Discharge Stand Alone Forms: Work/School Release, Portal Instructions Chief Complaint: Nausea/Vomiting/Diarrhea Clinical Impression: Fall, Dehydration, Parkinson's disease, Nausea Patient Disposition: Home, Self-Care Prescriptions / Home Meds: No Action carbidopa-levodopa 10-100 mg tablet metoprolol succinate 25 mg tablet extended release 24 hr PO melatonin 5 mg capsule pantoprazole 40 mg tablet,delayed release (DR/EC) PO losartan 25 mg tablet finasteride 5 mg tablet escitalopram oxalate 10 mg tablet Xarelto 20 mg tablet Print Language: Portuguese Instructions: Dehydration (ED), Acute Nausea and Vomiting (ED), Fall Prevention (ED) Referrals: RAUL DUMONT [Primary Care Provider] - 1 week
[2024-02-04 21:10] LABS: Hematocrit 35.4 % (42.0-54.0); Hemoglobin 11.5 g/dL (14.0-18.0); Mean Corpuscular HGB Conc 32.5 g/dL (29.9-35.2); Mean Corpuscular Hemoglobin 29.8 pg (25.9-34.0); Mean Corpuscular Volume 91.7 fL (80.0-94.0); Mean Platelet Volume 8.6 fL (9.5-13.5); Platelet Count 162 10^3/uL (150-450); Red Blood Count 3.86 10^6/uL (4.70-6.10); Red Cell Distribution Width 13.8 % (11.0-15.0)
[2024-02-04] MEDS: ONDANSETRON PF 4 MG/2 ML VIAL IV (21:15)
[2024-02-04] MEDS: 0.9 % SODIUM CHLORIDE 1,000 ML 999 ML IV (21:15)
--- NOTE | 2024-02-04 21:24 | PC.NURSE ---
Pt arrived with complaint of nausea and concern for dehydration. Pt stated he had a fall around 4pm today and stated did not hit head. Pt currently on Xerelto. Pt family present at bedside. IV placed and labs drawn. Pt orders for fluids and nausea medication both administered at this time. Pt has no complaints of any pain. Pt to notify nurse if need to urinate to collect urine sample.
[2024-02-04 21:25] LABS: INR 1.02; Partial Thromboplastin Time 28.8 sec (22.3-36.2); Prothrombin Time 10.8 sec (9.0-11.6)
[2024-02-04 21:28] LABS: Alanine Aminotransferase 16 U/L (16-63); Albumin Globulin Ratio 1.2; Albumin Level 3.6 g/dL (3.4-5.0); Alkaline Phosphatase 105 U/L (46-116); Anion Gap 9.3; Aspartate Amino Transferase 21 U/L (15-37); BUN Creatinine Ratio 19.5; Bilirubin Total 0.4 mg/dL (0.2-1.0); Calcium 8.8 mg/dL (8.5-10.1); Carbon Dioxide 30.9 mmol/L (21.0-32.0); Chloride 99 mmol/L (98-107); Estimated GFR (African America >60 (>=60); Estimated GFR (Non-African Ame 56 (>=60); Globulin 3.1 g/dL; Glucose 114 mg/dL (74-106); Potassium 4.2 mmol/L (3.5-5.1); Sodium 135 mmol/L (136-145); Total Protein 6.7 g/dL (6.4-8.2); Troponin I High Sensitivity 12.3 pg/mL (4.0-76.1)
[2024-02-04 21:39] LABS: Atypical Lymphocytes Abs Man 0.07; Basophils Abs Manual 0.07 10^3/uL (0.00-0.10); Eosinophils Absolute Manual 0.07 10^3/uL (0.00-0.70); Lymphocytes Absolute Manual 0.49 10^3/uL (1.20-3.80); Monocytes Absolute Manual 0.56 10^3/uL (0.30-0.80); Segmented Neut Absolute Manual 5.74 10^3/uL (1.4-6.5)
[2024-02-04 21:40] LABS: Toxic Granulation 2+
[2024-02-04 22:21] LABS: Bilirubin Urine NEGATIVE (NEGATIVE); Blood Urine NEGATIVE (NEGATIVE); Clarity Urine CLEAR (CLEAR); Color Urine LT. YELLOW (YELLOW); Glucose Urine UA NEGATIVE (NEGATIVE); Ketones Urine NEGATIVE (NEGATIVE); Leukocyte Esterase Urine NEGATIVE (NEGATIVE); Nitrite Urine NEGATIVE (NEGATIVE); Protein Urine NEGATIVE (NEG/TRACE); Urobilinogen Urine 0.2 EU/dL (0.2-1.0)
[2024-02-04 22:22] LABS: Urine Microscopic Indicated NO
[2024-02-04 22:27] VITALS: BP 140/86; PULSE 73; O2SAT 99
[2024-02-04 22:48] VITALS: BP 138/88; PULSE 70; O2SAT 99
== END 2024-02-04 22:48 | disposition home or self-care (01) ==
PROVIDERS: Personal Emergency Response Attendant; Emergency Provider Internal Medicine; PCP Family Medicine
DX: E86.0 Dehydration (principal); R11.0 Nausea; G20.A1 Parkinson's disease without dyskinesia, without mention of fluctuations; Z79.01 Long term (current) use of anticoagulants; Z95.2 Presence of prosthetic heart valve; Z91.81 History of falling
CPT/HCPCS: 36415; 80053; 81003; 84484; 85007; 85027; 85610; 85730; 93005; 96361; 96374; 99285; J2405

== ENCOUNTER 2024-05-26 17:46 | Emergency (ER) | payer MEDICARE, BC, SELFPAY ==
[2024-05-26] VITALS (13 sets, daily range): BP systolic 160; BP diastolic 98; PULSE 68–82; TEMP 36.7; O2SAT 92–99; BMI 29.3
--- OUTSIDE RECORDS SUMMARY | 2024-05-26 17:57 | XMS_ITS | CCD ---
Author Organization [facility] Inform ion Partnership [facility] Care Team Providers Care Grade Teacher Name Role Phone Raul Dumont DO Primary Care Provider Floyd Spaulding MD Unavailable DR RAUL DUMONT Primary Care Unavailable BENEDICT, DR WINN Admitting Unavailable BENEDICT, DR WINN Consulting Unavailable BENEDICT, DR WINN Attending Unavailable RICE, DR OSMEL Mccray Attending Unavailable JULIA, DR RAUL Uribe Primary Care Unavailable RICE, DR OSMEL Mccray Admitting Unavailable RICE, DR OSMEL Mccray Consulting Unavailable DO Raul Dumont Primary Care Provider MD Raghav Hubbard Attending Provider Raul Dumont DO Primary Care Provider Floyd Spaulding MD Unavailable [phone] Raul DUMONT Primary Care Physician Raul Dumont DO Primary Care Provider Floyd Spaulding MD Unavailable [phone] Savanna Zhang MD Unavailable Brain Nieves MD Unavailable Hay Jovel DO Unavailable Floyd Spaulding MD Unavailable [phone] Savanna Zhang MD Unavailable Brain Nieves MD Unavailable Raul DUMONT Primary Care Physician Lisa Archibald Unavailable Raul Dumont DO Primary Care Provider Clara Cobian Unavailable Floyd Spaulding MD Unavailable Nura FAUSTIN, Savanna Unavailable Raul Dumont DO Primary Care Provider BARBARA WARNER Attending Unavailable HUGO SOLANO Referring Unavailable JULIA, RAUL Uribe Primary Care Unavailable JULIA, RAUL Uribe Referring Unavailable JULIA, RAUL Uribe Primary Care Unavailable HAYDEN, PARADISE Lentz Attending Unavailable DELBERT HAWKINS Attending Unavailab le JULIA, RAUL Referring Unavailable PETITTDeng, PARADISE Lentz Attending Unavailable REBEKAH MARQUEZ Attending Unavailable CHANTEL, IVONNE Hernandez Attending Unavailable Marlene, hJ Johnson Attending Unavailable JULIA, Raul Uribe Attending Unavailable MP MARTINEZ Attending Unavailable CHAITANYA WATKINS Attending Unavailable JULIA, RAUL Uribe Primary Care Unavailable ADELINE Santiago, FLOYD Attending Unavailable ADELINE Santiago, FLOYD Referring Unavailable JULIA, RAUL Uribe Primary Care Unavailable CHAITANYA WATKINS Attending Unavailable SELF Referring Unavailable JULIA, RAUL Uribe Primary Care Unavailable CHAITANYA WATKINS Attending Unavailable JULIA, RAUL S Primary Care Unavailable CHAITANYA WATKINS Attending Unavailable SELF Referring Unavailable JULIA, RAUL Uribe Primary Care Unavailable Raul Dumont MD Primary Care Provider Allergies Allergy Classification Reported Allergen(s) Allergy Type Date of Onset Reaction(s) Facility (20 sources) Grass pollen; Translations: [GRASS POLLEN] Drug Allergy 7 Unknown [facility] (20 sources) Mometasone; Translations: [MOMETASONE] Drug Allergy 4 Other: See Comments [facility] Work Phone: (20 sources) predniSONE; Translations: [prednisone] Drug Allergy 3 Mental Status Change [facility] (20 sources) Sulfonamides (Antibiotic); Translations: [SULFA (SULFONAMIDE ANTIBIOTICS)] Drug Allergy 6 Unknown [facility] Work Phone: (1 source) Sulfonamides (Antibiotic) Drug allergy (disorder) 7 [facility] (7 sources) Sulfamethoxazole; Translations: [sulfamethoxazole ] Drug Allergy [facility] (3 sources) Azithromycin Drug Allergy 3 Rash [facility] Work Phone: Medications Current Medications Medication Drug Class(es) Dates Sig (Normalized) Sig (Original) acetaminophen 325 mg oral tablet (20 sources) Start: 12-09-2022 take 2 tablets by mouth every four hours as needed acetaminophen (TYLENOL) 325 mg tablet Take 2 tablets by mouth every 4 hours as needed (post-op pain). 12/09/2022 Active Start: 06-25-2020 End: 12-03-2022 take [...] as needed (post-op pain). Ascorbic Acid / Bioflavonoid s (20 sources) Vitamin C ascorbic acid/bioflavonoids (MONIQUE C ORAL) Take by mouth once daily. Active ascorbic acid/bi oflavonoids (MONIQUE C ORAL) Take by mouth once daily. 0 Active Comment on above: Take by mouth once d aily. atorvastatin 10 mg oral tablet (20 sources) HMG-CoA Reductase Inhibitor Start: 7 End: 3 take 1 tablet by mouth in the morning atorvastatin (Lipitor) 10 MG tablet Take 1 tablet by mouth in the morning. 10/06/2022 Active Start: 03-14-2010 take 20 mg by mouth once daily at bedtime Lipitor 20 mg, Oral, Once a day (at bedtime), Refills(s) 0, High cholesterol Start Date: 03/14/10 Status: Ordered Comment on above: TAKE 1 TABLET EVERY DAY TAKE 1 TABLET BY TASHA TH EVERY DAY Back Brace (2 sources) Start: [...] Decarboxylation Inhibitor, Aromatic Amino Acid Start: 11-04-19 take 1 tablet by mouth three times daily Carbidopa-Levodopa Active 1 TAB PO Three times daily November 04, 2023 12:00am celecoxib 200 mg oral capsule (1 source) Nonsteroidal Anti-inflammatory Drug Start: 11-04-19 take 200 mg by mouth once daily Celecoxib Active 200 MG PO Daily November 04, 2023 12:00am clotrimazole 10 mg/ml topical cream (5 sources) Azole Antifungal Start: 10-22-19 clotrimazole Top 1% Crm 1 dale, Topical, BID, 24 gram, Refill(s) 1, [id number], 178, cm, 10/21/22 10:47:00 EDT, Height/Length Dosing, 91.4, kg, 10/21/22 10:47:00 EDT, Weight Dosing Start Date: 10/21/22 Status: Ordered Start: 07-20-2022 clotrimazole T op 1% Crm 1 dale, Topical, BID, 24 gram, Refill(s) 1, [facility][id number], 178, cm, 07/20/22 14:05:00 EST, Height/Length Dosing, 91.3, kg, 07/20/22 14:05:00 EST, Weight Dosing Start Date: 07/20/22 Status: Ordered Co Q-10 (6 sources) Start: 10-20-2018 take 1 tablet by mouth once daily Co Q-10 See Instructions, 1 tab po daily, Refills(s) 0 Start Date: 10/20/18 Status: Ordered diazePAM 2 mg oral tablet (3 sources) Benzodiazepine Start: 12-23-2021 diazePAM (Valium) 2 MG tablet TAKE 1 TABLET BY MOUTH 30 MINUTES PRIOR TO MRI 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 12/16/2022 Active Start: 12-16-2022 Docusate Sodiu m (DSS) 100 MG capsule Take 100 mg by mouth every 12 (twelve) hours if needed. 12/16/2022 Active Comment on above: Take 1 capsule by mo [facility] twice daily as needed for constipation. docusate sodium 50 mg / sennosides, fci 8.6 mg oral tablet (9 sources) Start: 12-09-2022 take 1 tablet by mouth in the morning senna-docusate (Bee-Colace) 8.6-50 MG tablet Take 1 tablet by mouth in the morning and 1 tablet in the evening. 12/09/2022 Active Start: 12-09-2022 End: 01-14-2023 take 1 tablet by mouth twice daily as needed for constipation senna-docusate (SENNA-S) 8.6-50 mg per tablet Take 1 tablet by mouth twice daily. Continue while as needed thereafter for mild post-op constipation & stool softening. 28 tablet 0 12/09/2022 01/14/2023 Discontinued Comment on above: Take 1 tablet by [facility] twice daily. Continue while as needed thereafter for mild post-op constipation & stool softening. escitalopram 10 mg oral tablet (20 sources) Serotonin Reuptake Inhibitor Start: 4 take 10 mg by mouth once daily Escitalopram Oxalate Active 10 MG PO Daily November 04, 2023 12:00am Start: 02-12-2020 take 1 tablet by tasha once daily Lexapro 5 mg oral tablet 5 mg = 1 tab(s), Oral, Daily, # 30 tab(s), Refills(s) 3, Pharmacy: [id number], 178, cm, 03/12/20 10:12:00 EDT, Height/Length Dosing, 89.6, kg, 03/12/20 10:12:00 EDT, Weight Dosing Start Date: 03/19/20 Status: Ordered Comment on above: TAKE 1 TABLET BY TASHA ONE TIME A DAY finasteride 5 mg oral tablet (20 sources) 5-alpha Reductase Inhibitor Start: 0 take 1 tablet by mouth once daily finasteride 5 mg Tab 5 mg = 1 tab(s), Oral, Daily, # 90 tab(s), Refills(s) 3, Pharmacy: [facility] #[id number], 178, cm, 02/16/23 11:27:00 EDT, Height/Length Dosing, 95.6, kg, 02/16/23 11:27:00 EDT, Weight Dosing Start Date: 02/16/23 Status: Ordered furosemide 20 mg oral tablet (20 sources) Loop Diuretic Start: 3 End: 3 take 1 tablet by mouth once daily furosemide (LASIX) 20 mg tablet Take 1 tablet by mouth once daily for 7 days. 7 tablet 12/09/2022 Active Comment on above: Take 1 tablet by tasha th once daily for 7 days. gabapentin 300 mg oral capsule (1 source) Anti-epileptic Agent Start: 4 take 300 mg by mouth once daily at bedtime Gabapentin Active 300 MG PO Daily at bedtime November 04, 2023 12:00am losartan potassium 25 mg oral tablet (20 sources) Angiotensin 2 Receptor Demario Start: 9 take 1 tablet by mouth once daily losartan 25 mg Tab 25 mg = 1 tab(s), Oral, Daily, # 90 tab(s), Refills(s) 1, Pharmacy: [facility] #[id number], 178, cm, 10/21/22 10:47:00 EDT, Height/Length Dosing, 91.4, kg, 10/21/22 10:47:00 EDT, Weight Dosing Start Date: 01/05/23 Status: Ordered Comment on above: Take 25 mg by mouth once daily. lysine 500 mg oral tablet (20 sources) lysine 500 mg ta b Take by mouth. Active Comment on above: Take by mouth. magnesium hydroxide 80 mg/ml oral suspension (6 sources) Start: 3 magnesium hydroxide (Milk of Magnesia) 400 MG/5ML suspension Take 30 mL by mouth. 12/16/2022 Active Start: 12-16-2022 End: 01-14-2023 take 30 mL by mouth once daily as needed magnesium hydroxide (MOM) 400 mg/5 mL suspension Take 30 mL by mouth once daily as needed. 0 12/16/2022 01/14/2023 Discontinued Comment on above: Take 30 mL by mouth once daily as needed. melatonin 5 mg oral tablet (9 sources) Start: 10-28-2022 take 1 tablet by mouth once daily at bedtime melatonin 5 mg oral tablet 5 mg = 1 tab(s), Oral, Once a day (at bedtime), # 90 tab(s), Refills(s) 1, Pharmacy: [facility] #[id number], 178, cm, 10/21/22 10:47:00 EDT, Height/Length Dosing, 91.4, kg, 10/21/22 10:47:00 EDT, Weight Dosing Start Date: 10/28/22 Status: Ordered Start: 04-22-2022 Melatonin 20 m g, Once a day (at bedtime), Refills(s) 0 Start Date: 04/22/22 Status: Ordered Start: 03-24-2022 take 1 tablet by tasha th at bedtime [facility] Melatonin 3 MG tablet Take 3 mg by mouth at bedtime. 03/24/2022 Active memantine hydrochloride 5 mg oral tablet (1 source) J-hcrtbt-N-aspartate Receptor Antagonist Start: 11-04-2023 take 5 mg [...] 90 tablet 1 01/14/2023 Active Start: 12-09-2022 take 1 tablet by tasha th every twenty-four hours in the morning metoprolol succinate XL (Toprol-XL) 50 MG 24 hr tablet Take 50 mg by mouth in the morning and 50 mg in the evening. 12/09/2022 Active Start: 12-09-2022 End: 01-14-2023 take 1 tablet by mouth twice daily metoprolol succinate ER (TOPROL XL) 50 mg 24 hr tablet Take 1 tablet by mouth twice daily. 60 tablet 1 12/09/2022 01/14/2023 Discontinued Comment on above: Take 1 tablet by tasha th twice daily. Take 1 tablet by tasha once daily. Take 2 tablets by mo [facility] once daily. MULTIVITAMIN ORAL (20 sources) MULTIVITAMIN ORA L Take by mouth once daily. Active MULTIVITAMIN ORA L Take by mouth once daily. 0 Active Comment on above: Take by mouth once d aily. pantoprazole 40 mg delayed release oral tablet (20 sources) Proton Pump Inhibitor Start: 11-04-2023 Pantoprazole Active MG PO November 04, 2023 12:00am Start: 07-05-2017 take 1 tablet by tasha once daily Pantoprazole [address] Tab 40 mg = 1 tab(s), Oral, Daily, # 90 tab(s), Refills(s) 3, Pharmacy: [facility] #[id number], 178, cm, 02/02/22 10:46:00 EDT, Height/Length Dosing, 86.8, kg, 02/02/22 10:46:00 EDT, Weight Dosing Start Date: 04/17/22 Status: Ordered Comment on above: Take 1 tablet by tasha once daily. potassium chloride 10 meq extended release oral tablet (7 sources) Start: 3 End: 3 take 1 tablet by mouth once daily potassium chloride CR (Klor-Con) 10 MEQ ER tablet TAKE 1 TABLET BY MOUTH EVERY DAY FOR 7 DAYS 12/09/2022 Active Comment on above: Take 1 tablet by tasha once daily for 7 days. QUEtiapine 25 mg oral tablet (1 source) Atypical Antipsychotic Start: 4 take 25 mg by mouth twice daily Quetiapine Active 25 MG PO Twice daily November 04, 2023 12:00am rivaroxaban 20 mg oral tablet (20 sources) Factor Xa Inhibitor Start: 4 take 1 tablet by mouth once daily rivaroxaban (XARELTO) 20 mg tablet Take 1 tablet by mouth once daily. 90 tablet 3 03/10/2024 Active Start: 02-10-2017 End: 03-09-2024 take 1 tablet by mouth once daily in the evening Xarelto 20 mg oral tablet 20 mg = 1 tab(s), Oral, qPM, Refills(s) 0 Start Date: 10/20/18 Status: Ordered Comment on above: TAKE 1 TABLET BY TASHA ONCE DAILY. PLEASE CALL THE OFFICE FOR AN APPOINTMENT. Take 1 tablet by [facility] once daily. UBIDECARENONE (CO Q-10 ORAL) (20 sources) UBIDECARENONE (C O Q-10 ORAL) Take by mouth. Patient unsure of dosage Chews two gummies a day Active UBIDECARENONE (C O Q-10 ORAL) Take by mouth. Patient unsure of dosage Chews two gummies a day 0 Active Comment on above: Take by mouth. Patie nt unsure of dosage Chews two gummies a day Vitamin E Acetate, Bulk, 125 unit/mL liqd (20 sources) Vitamin E Acetat e, Bulk, 125 unit/mL liqd Active Vitamin E Acetat e, Bulk, 125 unit/mL [...] Comment on above: Take 1 tablet by [facility] once daily. fluticasone propionate 0.05 mg/actuat metered dose nasal [...] 2017 12:00am July 23, 2018 11:55pm mag [id number] rt xt 500-3,000-150 mg-unit-mg tab (18 sources) End: 01-14-2023 mag [id number] rt xt 500-3,000-150 mg-unit-mg tab Take by mouth. 0 01/14/2023 Discontinued mag [id number]-[id number] meric rt xt 500-3,000-150 mg-unit-mg tab Take by mouth. 0 Active Comment on above: Take by mouth. metaxalone 800 mg oral tablet (2 sources) Start: 07-11-19 End: 07-23-19 19 take 1 tablet by mouth three times daily Metaxalone (Skelaxin) 800 mg Tablet Discontinued 800 MG PO Three times daily July 11, 2018 1:00am July 23, 2018 11:54pm montelukast 10 mg oral tablet (2 sources) Leukotriene Receptor Antagonist Start: 02-11-20 17 End: 07-11-19 19 take 1 tablet by mouth once daily Montelukast Discontinued 1 TAB PO Daily February 10, 2017 12:00am July 11, 2018 5:39am mupirocin 0.02 mg/mg topical ointment (1 source) RNA Synthetase Inhibitor Antibacterial Start: 12-04-19 23 mupirocin (BACTROBAN) 2 % ointment Apply a [...] (DEFINITY) (20 sources) Start: 04-02-20 End: 12-04-19 23 perflutren lipid microspheres 1.3 mL in NaCl [...] 10 mL injection (DEFINITY) polyethylene glycol 3350 52445 mg powder for oral solution (9 sources) [...] ounces of liquid and take as directed. 125 ml sodium chloride 9 mg/ml prefilled [...] topically BID to affected area as needed, [facility] #[id number], 177.8, cm, 07/16/20 10:42:00 EST, Height/Length Dosing, 91.3, kg, 07/16/20 10:42:00 EST, Weight Dosing Start Date: 07/16/20 Status: Ordered Start: 07-16-2020 triamcinolone Top 0.1% Crm See Instructions, 80 gm, Refill(s) 1, Apply topically BID to affected area as needed, [id number], 177.8, cm, 07/16/20 10:42:00 EST, Height/Length [...] Translations: [Unspecified asthma, uncomplicated] 06-02-2021 Chronic Cardiac and circulatory congenital anomalies (1 source) H/O cardiac surgery; Translations: [Personal history of (corrected) congenital malformations of heart and circulatory system] 12-15-2022 Episodic Cardiac dysrhythmias (20 sources) Paroxysmal atrial fibrillation; Translations: [Paroxysmal atrial fibrillation] Onset: 2 10-31-2015 Chronic Coagulation and hemorrhagic disorders (20 sources) Thrombocytopenic disorder; Translations: [Thrombocytopenia, unspecified] Onset: 3 12-07-2022 Chronic Congestive heart failure; nonhypertensive (20 sources) Acute on chronic diastolic heart failure; [...] including shoulder] Onset: 1 06-19-2020 Chronic Mycoses (9 sources) Onychomycosis; Translations: [Tinea unguium] Episodic Nausea and vomiting (2 sources) Nausea and vomiting; Translations: [Nausea with vomiting, unspecified] 02-10-2017 Episodic Neoplasms of unspecified nature or uncertain behavior (2 sources) Neoplasm of skin; Translations: [Neoplasm of unspecified behavior of bone, soft tissue, and skin] 02-17-2024 Episodic Osteoarthritis (3 sources) Localized osteoarthrosis; Translations: [Primary osteoarthritis, right shoulder] Onset: 4 09-09-2023 Chronic Other acquired deformities (1 source) Equinus contracture [...] 3 06-02-2021 Chronic Other connective tissue disease (10 sources) Pain of toes of bilateral feet; Translations: [Pain in right toe(s)] Episodic Other connective tissue disease (1 source) Bilateral metatarsalgia; Translations: [Metatarsalgia, right foot] 05-12-2023 Episodic Other gastrointestinal disorders (20 sources) Irritable bowel syndrome; Translations: [Irritable bowel syndrome without diarrhea] Onset: 5 06-15-2014 Chronic Other gastrointestinal disorders (6 sources) Constipation 01-04-2019 Episodic Other hereditary and degenerative nervous system conditions (20 sources) Myoclonus; Translations: [Myoclonus] Onset: 4 02-26-2014 Chronic Other lower respiratory disease (4 sources) Cough 10-21-2022 Episodic Other male genital [...] disorder] Onset: 2 Episodic Other skin disorders (5 sources) Eruption; Translations: [Rash and other nonspecific [...] Onset: 0 02-07-2010 Chronic Residual codes; unclassified (6 sources) Fidgeting 11-06-2021 Chronic Residual codes; unclassified (7 sources) Insomnia; Translations: [Insomnia, unspecified] Onset: 2 Episodic Residual codes; unclassified (1 source) History of repair of mitral valve; Translations: [Other specified postprocedural states] 12-15-2022 Episodic Residual codes; unclassified (1 source) Pain; Translations: [Pain, unspecified] 05-12-2023 Episodic Spondylosis; intervertebral disc disorders; other back problems (3 sources) Cervical spondylosis; Translations: [Other spondylosis with radiculopathy, cervical region] Onset: 3 03-14-2023 Chronic Superficial injury; contusion (10 sources) Contusion of rib; Translations: [Contusion of unspecified front wall of thorax, initial encounter] 06-27-2021 Episodic Transient cerebral ischemia (6 sources) Transient cerebral ischemia 03-14-2010 Chronic Unclassified (4 sources) Foreskin finding 02-16-2023 Past or Other Problems Problem Classification Problem Date Documented Date Episodic/Chronic Abdominal pain (20 sources) Abdominal pain; Translations: [Unspecified abdominal pain] Onset: 06-15-2014 06-15-2014 Episodic Acute posthemorrhagic anemia (7 sources) Acute posthemorrhagic anemia; Translations: [Acute posthemorrhagic anemia] Onset: 12-06-2022 Resolved: 12-07-2022 12-07-2022 Episodic Blindness and vision defects (20 sources) Blurring of visual image; Translations: [Other visual disturbances] Onset: 02-26-2014 02-26-2014 Episodic Complications of surgical procedures or medical care (7 sources) Cardiac insufficiency following cardiac surgery; Translations: [Postprocedural cardiac insufficiency following cardiac surgery] Onset: 12-04-2022 Resolved: 12-06-2022 12-06-2022 Chronic Conditions associated with dizziness or vertigo (20 sources) Dizziness and giddiness; Translations: [Dizziness and giddiness] Onset: 11-22-2008 11-22-2008 Episodic Diabetes mellitus without complication (7 sources) Metabolic stress hyperglycemia; Translations: [Hyperglycemia, unspecified] Onset: 12-04-2022 Resolved: 12-07-2022 12-07-2022 Episodic Fluid and electrolyte disorders (7 sources) Hypervolemia; Translations: [Fluid overload, unspecified] Onset: 12-05-2022 Resolved: 12-07-2022 12-07-2022 Episodic Malaise and fatigue (3 sources) Physical deconditioning; Translations: [Other malaise] Onset: 12-14-2022 12-14-2022 Episodic Nonspecific chest pain (20 sources) Chest pain; Translations: [Chest pain, unspecified] Onset: 06-06-2015 06-06-2015 Episodic Other and unspecified benign neoplasm (20 [...] residual deficits] Onset: 12-03-2022 12-03-2022 Episodic Other connective tissue disease (20 sources) Pain in right foot; Translations: [Pain in right foot] Onset: 08-21-2014 08-21-2014 Episodic Other connective tissue disease (20 sources) Pain in limb; Translations: [Pain in unspecified limb] Onset: 08-21-2014 08-21-2014 Episodic Other connective tissue disease (3 sources) Muscle weakness; Translations: [Muscle weakness (generalized)] Onset: 12-14-2022 12-14-2022 Episodic Other lower respiratory disease (20 sources) Dyspnea; Translations: [Shortness of breath] Onset: 08-31-2013 08-31-2013 Episodic Other nervous system disorders (20 sources) Word finding difficulty ; Translations: [Other speech disturbances] Onset: 12-06-2022 12-06-2022 Episodic Other nervous system disorders (7 sources) Postoperative pain ; Translations: [Other acute postprocedural pain] Onset: 12-04-2022 Resolved: 12-07-2022 12-07-2022 Episodic Other nervous system disorders (3 sources) Impairment of balance; Translations: [Other abnormalities of gait and mobility] Onset: 12-14-2022 12-14-2022 Episodic Other non-traumatic joint disorders (20 sources) Joint pain; Translations: [Pain in unspecified joint] Onset: 12-25-2009 12-25-2009 Episodic Other non-traumatic joint disorders (3 sources) Pain in right shoulder; Translations: [Pain in joint, shoulder region] Onset: 03-03-2023 03-03-2023 Episodic Other non-traumatic joint disorders (3 sources) Chronic pain of right upper limb; Translations: [Pain in right shoulder] Onset: 09-09-2023 09-09-2023 Episodic Pathological fracture (20 sources) Pathological fracture; Translations: [Pathological fracture, other site, initial encounter for fracture] Onset: 08-21-2014 08-21-2014 Episodic Pleurisy; pneumothorax; pulmonary collapse (7 sources) Atelectasis; Translations: [Atelectasis] Onset: 12-05-2022 Resolved: 12-07-2022 12-07-2022 Episodic Residual codes; unclassified (20 sources) History of radiofrequency ablation operation for arrhythmia; Translations: [Other specified postprocedural states] Onset: 12-03-2022 12-03-2022 Episodic Residual codes; unclassified (20 sources) Problem with continuity of care; Translations: [Problem with continuity of care] Onset: 12-07-2022 12-09-2022 Episodic Respiratory failure; insufficiency; arrest (adult) (7 sources) Ventilator finding; Translations: [Dependence on respirator [ventilator] status] Onset: 12-04-2022 Resolved: 12-05-2022 12-05-2022 Chronic Spondylosis; intervertebral disc disorders; other back problems (3 sources) Neck pain; Translations: [Cervicalgia] Onset: 03-14-2023 03-14-2023 Episodic Results Test Name Value Interpretation Reference Range Facil mavisy ARONon 05-10-2024 CNOV Office Visit (LOORRM) ---- JORDI FRANCO ([id number]) 1940 M [facility] Xcld* Date Time Provider Department 05/10/24 8:45 AM CHAITANYA WATKINS LOORRM During your visit today, we recorded the following information about you: Chaitanya Watkins, [facility] 05/10/2024 9:32 AM Signed SUBJECTIVE: The patient presents today with his [...] signs of periungual abscess, infection, or cellulitis. Ortho-Musculoskelet al: There is discomfort with palpation especially upon [...] from my notes of previous visit of 02/08/24 was copied and pasted, documentation has been reviewed and edited as necessary and is current for today. Diego WilliamsonP.M. Referring Provider: SELF [[id number]] Allergies As of Date: 05/10/2024 Noted Allergy Reaction GRASS POLLEN 12/04/2016 16 - Unknown NASONEX (MOMETASONE) 09/01/2013 14 - Other: See Comments Comments: Made him feel very hot and very jittery and shakey. PREDNISONE 05/25/2013 1 - Mental Status Change SULFA (SULFONAMIDE ANTIBIOTICS) 11/05/2005 16 - Unknown Date Reviewed: 02/08/2024 Reviewed by: Natty Charles CT - Fully Assessed Primary Visit Diagnosis:Onychomyc osis [B35.1] Other Visit Diagnosis:Pain in toes of both feet [M79.674, M79.675] Prescriptions as of 05/10/2024 - rivaroxaban (XARELTO) 20 mg tablet Take 1 tablet by mouth once daily. - metoprolol succinate ER (TOPROL XL) 25 mg 24 hr tablet Take 1 tablet by mouth once daily. - docusate sodium (COLACE) 100 mg capsule Take 1 capsule by mouth twice daily as needed for constipation. - acetaminophen (TYLENOL) 325 mg tablet Take 2 tablets by mouth every 4 hours as needed (post-op pain). - furosemide (LASIX) 20 mg tablet Take 1 tablet by mouth once daily for 7 days. - atorvastatin (LIPITOR) 10 mg tablet TAKE 1 TABLET BY MOUTH EVERY DAY - lysine 500 mg tab Take by mouth. - Vitamin E Acetate, Bulk, 125 unit/mL liqd - finasteride (PROSCAR) 5 mg tablet - escitalopram oxalate (LEXAPRO) 5 mg tablet TAKE 1 TABLET BY MOUTH ONE TIME A DAY - ascorbic acid/bioflavonoids (MONIQUE C ORAL) Take by mouth once daily. - pantoprazole DR (PROTONIX) 40 mg tablet Take 1 tablet by mouth once daily. - UBIDECARENONE (CO Q-10 ORAL) Take by mouth. Patient unsure of dosage Chews two gummies a day - MULTIVITAMIN ORAL Take by mouth once daily. 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] 02/26/2014 Asthma [J45.909] Cancer (HCC) [C80.1] Essential hypertension [I10] Pheochromocytoma [D35.00] 04/16/2014 Abdominal pain [R10.9] 06/15/2014 Irritable bowel syndrome [K58.9] 06/15/2014 Foot pain, right [M79.671] 08/21/2014 Pain in limb [M79.609] 08/21/2014 Pathologic fracture of other specified site [M8*08/21/2014 Chest pain of uncertain etiology [R07.9] 06/06/2015 Melanoma in situ of left upper extremity (HCC) *06/19/2020 Atherosclerosis of aorta (HCC) [I70.0] 10/07/2022 Nonrheumatic mitral valve regurgitation [I34.0] 12/03/2022 Nonrheumatic aortic valve stenosis [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 Normal [facility] Urology Office/Clinic Noteon 02-23-2024 Urology Office/Clinic Note Urology Office/Clinic Note Chief Complaint 1 year with PSA HPI Staff 1 yr with PSA. Pt. was not able to give a urine sample today Previous Dx: BPH with urinary obstruction, foreskin problem, groin rash. S/p cysto 07/13/18. *Finasteride 5 mg qd. PSA: 12/25/21 - 0.26 01/21/23 - 0.34 01/17/24 - 0.24 Dysuria: no Incomplete bladder emptying: less than half the time Hematuria: no Frequency: less than half the time Urgency: less than half the time Nocturia: 1x Stream: good stream Post good void dripping: no Wearing pads/ Depends: yes, at night Urge incontinence: no Stress incontinence: no Incontinence without Sensory Awareness: at night Abdominal pain: no Flank pain: no Review of Systems PHQ Score Initial Depression Screen Score: 0 SCORE no fever, chills, malaise, myalgia. no rash/lesions. no chest pain, palpitations, or SOB. no abdominal pain, nausea, vomiting. no unilateral calf swelling, redness, pain Physical Exam Vitals & Measurements HT: 70 in HT: 178 cm WT: 95.6 kg WT: 210.32 lb BMI: 30.17 General: nontoxic, NAD Mouth: moist mucosa Lungs: normal respiratory effort Cardio: regular rate, good distal perfusion Abdomen: nondistended, no suprapubic distention or tenderness, no CVA tenderness Neurologic: Grossly normal Skin: No rashes or suspicious lesions Assessment/Plan unable to give sample today 1. BPH with urinary obstruction (N40.1: Benign prostatic hyperplasia with lower urinary tract symptoms) Pt is taking finasterideand is mostly satisfiedwith overall symptom control. Pt is experiencing noside effects. IPSS 7 QOL 3 We discussed current dose and optional changes: add tamsulosin I discussed with the patient the different surgical treatment options for bladder outlet obstruction including TURP, Rezum, and Urolift. The patient prefers to continue the BPH medications at this time. Pt prefers to continue current regimen with no changes at this time. Ordered: E&M of Est. Patient Low 20-29 Min 01784 2. Prostate cancer screening (Z12.5: Encounter for screening for malignant neoplasm of prostate) PSA 01/17/24 - 0.24 which is low/stable and well within normal range I discussed the options concerning the PSA and continued monitoring, given his advancing age. He wants to continue monitoring his PSA levels for now. Ordered: E&M of Est. Patient Low 20-29 Min 11253 Other obstructive and reflux uropathy (N13.8: Other obstructive and reflux uropathy) Offered continued scheduled follow up with our clinic vs following up PRN. Pt prefers the latter. We will ensure PCP continues to order refills and annual PSA. Letter sent. Follow-up With When Contact Information IVONNE GRANT PA-C, URL Only if needed [address] [place] [address] [facility] (1) Additional Instructions: Patient Education Benign Prostatic Hyperplasia Problem List/Past Medical History Ongoing Atherosclerosis of abdominal aorta ATRIAL FIBRILLATION BPH with urinary obstruction Chest wall contusion Claustrophobia Constipation Cough Dizziness Fidgeting Foreskin problem KELI (generalized anxiety disorder) GERD (gastroesophageal reflux disease) Groin rash HTN - Hypertension Insomnia Mixed hyperlipidemia Panic attacks Prostate cancer screening SOB (shortness of breath) Historical TIA Procedure/Surgical History Open heart surgery (11/05/2022), Cystoscopy (07/13/2018), Ankle, left, Back Surgery, Cataract extraction, Colonoscopy. Medications clotrimazole Top 1% Crm, 1 dale, Topical, [...] mg= 1 tab(s), Oral, Daily, 3 refills Xarelto 20 mg oral tablet, 20 mg= 1 tab(s), Oral, qPM Allergies predniSONE (Unknown, AOF) sulfamethoxazole Social History Alcohol - Denies Alcohol Use, 04/11/2023 Exercise Substance Abuse - Denies Substance Abuse, 04/11/2023 Tobacco - Denies Tobacco Use, 04/22/2022 Never (less than 100 in lifetime) Tobacco Use:. Never Smokeless Tobacco Use:. Household tobacco concerns: No., 02/22/2024 Family History Acute myocardial infarction: Father. Diabetes mellitus type 2: Mother. Primary malignant neoplasm of lung: Father. Prostate cancer: Brother. Immunizations Vaccine Date Status Comments influenza virus vaccine, inactivated 04/23/2022 Given influenza virus vaccine, inactivated 02/04/2021 Recorded Impactsiis SARS-CoV-2 (COVID-19) mRNA BNT-162b2 vax 02/04/2021 Recorded Impactsiis SARS-CoV-2 mRNA (tozinameran 5y-11y) vac 2020 Recorded influenza virus vaccine, inactivated 03/12/2020 Given influenza vir (more content not included)... Normal [facility] Comment on above: Result Comment: Elec tronically Signed By: IVONNE GRANT PA-C\.br\Date and Time Signed: 02/23/24 13:54 EDT Ambulatory Visit Summaryon 0 02-22-2024 Ambulatory Visit Summary Ambulatory Visit Summary MARYMAGDIEL JORDI Harvey :1940 Visit Date:02/22/2024 Ambulatory Visit Instructions Your Care Team Attending Physician - IVONNE [...] Back Surgery, Cataract extraction, Colonoscopy. Discharge Vitals Height 178 cm Height 70 in Weight 95.6 kg Weight 210.32 lb BMI 30.17 Medications What How Much When Instructions Unchanged atorvastatin (Lipitor) 20 Milligram By Mouth Once a day (at bedtime) Unchanged clotrimazole topical (clotrimazole Top 1% Crm) 1 Application Topical 2 times a day Unchanged escitalopram (Lexapro 5 mg oral tablet) 1 Tablets By Mouth Every day Unchanged finasteride (finasteride 5 mg Tab) 1 Tablets By Mouth Every day Unchanged losartan (losartan 25 mg Tab) 1 Tablets By Mouth Every day Unchanged melatonin (melatonin 5 mg oral tablet) 1 Tablets By Mouth Once a day (at bedtime) Unchanged pantoprazole (Pantoprazole [address] Tab) 1 Tablets By Mouth Every day Unchanged rivaroxaban (Xarelto 20 mg oral tablet) 1 Tablets By Mouth Once a day (in the evening) Unchanged ubiquinone (Co Q-10) See instructions 1 tab po daily Allergies predniSONE (Unknown, AOF) sulfamethoxazole Problems Ongoing - Any problem that you are currently receiving treatment for. Atherosclerosis of abdominal aorta ATRIAL FIBRILLATION BPH with urinary obstruction Chest wall contusion Claustrophobia Constipation Cough Dizziness Fidgeting Foreskin problem KELI (generalized anxiety disorder) GERD (gastroesophageal reflux disease) Groin rash HTN - Hypertension Insomnia Mixed hyperlipidemia Panic attacks SOB (shortness of breath) Historical - Any problem that you are no longer receiving treatment for. TIA Patient Survey You may receive a survey via text or e-mail asking about your office visit. Please share your experience with us by completing your survey. We appreciate your feedback and thank you for choosing us for your care. [facility] Provider Letteron 02-22-[address] Raul Dumont, [facility] [place] [address] Re: JORDI FRANCO Date of : [address] JULIA MOROCHO, JORDI Narvaez was evaluated at [facility] 02/22/2024 10:00:00 As this patient has been stable, they will be released back to your care. Pt requests that you continue to check PSA annually for prostate cancer screening He also is taking Finasteride 5mg daily. I provided 1 yr of refills at today's visit but ask that you provide future refills. Should the patient develop new symptoms, worsening condition, or abnormal imaging/labs in the future, do not hesitate to refer them back. Thanks! Provider Signature: Ivonne Grant PA-C Physician Antenna Installer [facility] [address] [place] [address] [facility] CNOVon 02-08-2024 CNOV Office Visit (LOORRM) ---- JORDI FRANCO ([id number]) 1940 M [facility] Xcld* Date Time Provider Department 02/08/24 11:00 AM CHAITANYA WATKINS LOORRM During your visit today, we recorded the following information about you: Chaitanya Watkins DPDustin 02/08/2024 11:21 AM Signed SUBJECTIVE: The patient presents today with his [...] signs of periungual abscess, infection, or cellulitis. Ortho-Musculoskelet al: There is discomfort with palpation especially upon [...] from my notes of previous visit of 11/03/23 was copied and pasted, documentation has been reviewed and edited as necessary and is current for today. Chaitanya Watkins, Radha.P.M. Referring Provider: SELF [200] Allergies As of Date: 02/08/2024 Noted Allergy Reaction GRASS POLLEN 12/04/2016 16 - Unknown NASONEX (MOMETASONE) 09/01/2013 14 - Other: See Comments Comments: Made him feel very hot and very jittery and shakey. PREDNISONE 05/25/2013 1 - Mental Status Change SULFA (SULFONAMIDE ANTIBIOTICS) 11/05/2005 16 - Unknown Date Reviewed: 02/08/2024 Reviewed by: Natty Charles CT - Fully Assessed Reason for Visit: Debridement of Nail [2924] Primary Visit Diagnosis:Onychomyc osis [B35.1] Other Visit Diagnosis:Pain in toes of both feet [M79.674, M79.675] Prescriptions as of 02/08/2024 - metoprolol succinate ER (TOPROL XL) 25 mg 24 hr tablet Take 1 tablet by mouth once daily. - rivaroxaban (XARELTO) 20 mg tablet Take 1 tablet by mouth once daily. - docusate sodium (COLACE) 100 mg capsule Take 1 capsule by mouth twice daily as needed for constipation. - acetaminophen (TYLENOL) 325 mg tablet Take 2 tablets by mouth every 4 hours as needed (post-op pain). - furosemide (LASIX) 20 mg tablet Take 1 tablet by mouth once daily for 7 days. - atorvastatin (LIPITOR) 10 mg tablet TAKE 1 TABLET BY MOUTH EVERY DAY - lysine 500 mg tab Take by mouth. - Vitamin E Acetate, Bulk, 125 unit/mL liqd - finasteride (PROSCAR) 5 mg tablet - escitalopram oxalate (LEXAPRO) 5 mg tablet TAKE 1 TABLET BY MOUTH ONE TIME A DAY - ascorbic acid/bioflavonoids (MONIQUE C ORAL) Take by mouth once daily. - pantoprazole DR (PROTONIX) 40 mg tablet Take 1 tablet by mouth once daily. - UBIDECARENONE (CO Q-10 ORAL) Take by mouth. Patient unsure of dosage Chews two gummies a day - MULTIVITAMIN ORAL Take by mouth once daily. 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] 02/26/2014 Asthma [J45.909] Cancer (HCC) [C80.1] Essential hypertension [I10] Pheochromocytoma [D35.00] 04/16/2014 Abdominal pain [R10.9] 06/15/2014 Irritable bowel syndrome [K58.9] 06/15/2014 Foot pain, right [M79.671] 08/21/2014 Pain in limb [M79.609] 08/21/2014 Pathologic fracture of other specified site [M8*08/21/2014 Chest pain of uncertain etiology [R07.9] 06/06/2015 Melanoma in situ of left upper extremity (HCC) *06/19/2020 Atherosclerosis of aorta (HCC) [I70.0] 10/07/2022 Nonrheumatic mitral valve regurgitation [I34.0] 12/03/2022 Nonrheumatic aortic valve stenosis [I35.0] 12/03/2022 History of stroke [Z86.73] 12/03/2022 History of cardiac radiofrequency ablation [Z98*12/03/2022 GERD (gastroesophageal reflux disease) [K21.9] 12/04/2022 BPH (benign prostatic hyperplasia) [N40.0] 12/04/2022 (more content not included)... Normal [facility] XR KNEE RIGHT (1-2 VIEWS)on 12-06-2023 XR [...] Rosalba Guzman MD 12/06/23 Final result Normal [facility] CNPNon 11-09-2023 [facility] Telephone ([facility]) ---- SALVADORJORDI Gabriel ([id number]) 1940 M [facility] Xcld* Date Time Provider Department 11/09/23 [facility] During your visit today, we recorded the following information about you: Radha Love 11/09/2023 3:50 PM Signed November 09, 2023 [id number] Patient Name: Jordi Franco Contact Information: [phone] (home) [phone] (cell) Reason For Call: Medication Issue/Question: Xerelto Physician:Floyd Spaulding M.D. Additional Comments: Pt has parkinson's and is falling a lot. Please revisit Rx dosage roberta of falls. Please advise. Is it ok to leave detailed message on voice mail : Yes Requested Prescriptions No prescriptions requested or ordered in this encounter Clara Garcia, JC 11/09/2023 4:11 PM Signed Tried to reach patient by phone. Left message to return call to office Clara Hernandez RN Allergies As of Date: 11/09/2023 Noted Allergy Reaction GRASS POLLEN 12/04/2016 16 - Unknown NASONEX (MOMETASONE) 09/01/2013 14 - Other: See Comments Comments: Made him feel very hot and very jittery and shakey. PREDNISONE 05/25/2013 1 - Mental Status Change SULFA (SULFONAMIDE ANTIBIOTICS) 11/05/2005 16 - Unknown Date Reviewed: 11/03/2023 Reviewed by: Natty Charles CT - Fully Assessed Reason for Visit: Medication Problem [65] Patient Question [2852] Prescriptions as of 11/19/2023 - metoprolol succinate ER (TOPROL XL) 25 mg 24 hr tablet Take 1 tablet by mouth once daily. - rivaroxaban (XARELTO) 20 mg tablet Take 1 tablet by mouth once daily. - docusate sodium (COLACE) 100 mg capsule Take 1 capsule by mouth twice daily as needed for constipation. - acetaminophen (TYLENOL) 325 mg tablet Take 2 tablets by mouth every 4 hours as needed (post-op pain). - furosemide (LASIX) 20 mg tablet Take 1 tablet by mouth once daily for 7 days. - atorvastatin (LIPITOR) 10 mg tablet TAKE 1 TABLET BY MOUTH EVERY DAY - lysine 500 mg tab Take by mouth. - Vitamin E Acetate, Bulk, 125 unit/mL liqd - finasteride (PROSCAR) 5 mg tablet - escitalopram oxalate (LEXAPRO) 5 mg tablet TAKE 1 TABLET BY MOUTH ONE TIME A DAY - ascorbic acid/bioflavonoids (MONIQUE C ORAL) Take by mouth once daily. - pantoprazole DR (PROTONIX) 40 mg tablet Take 1 tablet by mouth once daily. - UBIDECARENONE (CO Q-10 ORAL) Take by mouth. Patient unsure of dosage Chews two gummies a day - MULTIVITAMIN ORAL Take by mouth once daily. 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] 02/26/2014 Asthma [J45.909] Cancer (HCC) [C80.1] Essential hypertension [I10] Pheochromocytoma [D35.00] 04/16/2014 Abdominal pain [R10.9] 06/15/2014 Irritable bowel syndrome [K58.9] 06/15/2014 Foot pain, right [M79.671] 08/21/2014 Pain in limb [M79.609] 08/21/2014 Pathologic fracture of other specified site [M8*08/21/2014 Chest pain of uncertain etiology [R07.9] 06/06/2015 Melanoma in situ of left upper extremity (HCC) *06/19/2020 Atherosclerosis of aorta (HCC) [I70.0] 10/07/2022 Nonrheumatic mitral valve regurgitation [I34.0] 12/03/2022 Nonrheumatic aortic valve stenosis [I35.0] 12/03/2022 History of stroke [Z86.73] 12/03/2022 History of cardiac radiofrequency ablation [Z98*12/03/2022 GERD (gastroesophageal reflux disease) [K21.9] 12/04/2022 BPH (benign prostatic hyperplasia) [N40.0] 12/04/2022 Other hyperlipidemia [E78.49] 12/04/2022 Encounter for preoperative anesthesiology asses*12/04/2022 12/06/2022 On mechanically assisted ventilation (HCC) [Z99*12/04/2022 12/05/2022 Cardiac insufficiency following cardiac surgery*12/04/2022 12/06/2022 Postoperative pain [G89.18] 12/04/2022 12/07/2022 Stress hyperglycemia [R73.9] 12/04/2022 12/07/2022 Atelectasis [J98.11] 12/05/2022 12/07/2022 Volume overload [E87.70] 12/05/2022 12/07/2022 Thrombocytopenia (HCC) [D69.6] 12/05/2022 Acute blood loss anemia [D62] 12/06/2022 12/07/2022 Word finding difficulty [R47.89] 12/06/2022 Summary [Z91.199] 12/07/2022 Acute on chronic diastolic (congestive) heart f*12/07/2022 Aortic valve disorder [I35.9] 12/08/2022 S/P AVR [Z95.2] 01/14/2023 Encounter Status:Closed by RADHA LOVE on 11/19/23 Normal [facility] CNOVon 11-03-2023 CNOV Office Visit (LOORRM) ---- MARYJORDI VELOZ ([id number]) 1940 M I Xcld* Date Time Provider Department 11/03/23 8:45 AM CHAITANYA WATKINS During your visit today, we recorded the following information about you: Chaitanya Watkins, [facility] 11/03/2023 8:44 AM Signed SUBJECTIVE: The patient presents today with his [...] signs of periungual abscess, infection, or cellulitis. Ortho-Musculoskelet al: There is discomfort with palpation especially upon [...] is current for today. Chaitanya Watkins D.P.M. Referring Provider: SELF [200] Allergies As of Date: 11/03/2023 Noted Allergy Reaction GRASS POLLEN 12/04/2016 16 - Unknown NASONEX (MOMETASONE) 09/01/2013 14 - Other: See Comments Comments: Made him feel very hot and very jittery and shakey. PREDNISONE 05/25/2013 1 - Mental Status Change SULFA (SULFONAMIDE ANTIBIOTICS) 11/05/2005 16 - Unknown Date Reviewed: 11/03/2023 Reviewed by: Natty Charles CT - Fully Assessed Reason for Visit: Debridement of Nail [2924] Primary Visit Diagnosis:Onychomyc osis [B35.1] Other Visit Diagnosis:Pain in toes of both feet [M79.674, M79.675] Prescriptions as of 11/03/2023 - metoprolol succinate ER (TOPROL XL) 25 mg 24 hr tablet Take 1 tablet by mouth once daily. - rivaroxaban (XARELTO) 20 mg tablet Take 1 tablet by mouth once daily. - docusate sodium (COLACE) 100 mg capsule Take 1 capsule by mouth twice daily as needed for constipation. - acetaminophen (TYLENOL) 325 mg tablet Take 2 tablets by mouth every 4 hours as needed (post-op pain). - furosemide (LASIX) 20 mg tablet Take 1 tablet by mouth once daily for 7 days. - atorvastatin (LIPITOR) 10 mg tablet TAKE 1 TABLET BY MOUTH EVERY DAY - lysine 500 mg tab Take by mouth. - Vitamin E Acetate, Bulk, 125 unit/mL liqd - finasteride (PROSCAR) 5 mg tablet - escitalopram oxalate (LEXAPRO) 5 mg tablet TAKE 1 TABLET BY MOUTH ONE TIME A DAY - ascorbic acid/bioflavonoids (MONIQUE C ORAL) Take by mouth once daily. - pantoprazole DR (PROTONIX) 40 mg tablet Take 1 tablet by mouth once daily. - UBIDECARENONE (CO Q-10 ORAL) Take by mouth. Patient unsure of dosage Chews two gummies a day - MULTIVITAMIN ORAL Take by mouth once daily. 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] 02/26/2014 Asthma [J45.909] Cancer (HCC) [C80.1] Essential hypertension [I10] Pheochromocytoma [D35.00] 04/16/2014 Abdominal pain [R10.9] 06/15/2014 Irritable bowel syndrome [K58.9] 06/15/2014 Foot pain, right [M79.671] 08/21/2014 Pain in limb [M79.609] 08/21/2014 Pathologic fracture of other specified site [M8*08/21/2014 Chest pain of uncertain etiology [R07.9] 06/06/2015 Melanoma in situ of left upper extremity (HCC) *06/19/2020 Atherosclerosis of aorta (HCC) [I70.0] 10/07/2022 Nonrheumatic mitral valve regurgitation [I34.0] 12/03/2022 Nonrheumatic aortic valve stenosis [I35.0] 12/03/2022 History of stroke [Z86.73] 12/03/2022 History of cardiac radiofrequency ablation [Z98*12/03/2022 GERD (gastroesophageal reflux disease) [K21.9] 12/04/2022 BPH (benign prostatic hyperplasia) [N40.0] 12/04/2022 (more content not included)... Normal [facility] 10-19-2023 [facility] Telephone (LOORR) ---- JORDI FRANCO ([id number]) 1940 M [facility] Xcld* Date Time Provider Department 10/19/23 CHAITANYA WATKINSORRDustin During your visit today, we recorded the following information about you: Samira Ann, RN 10/19/2023 9:09 AM Signed -Pt's daughter (Sabiha) calling in to office. [...] a prescription for foam inserts for Pt. [facility] office can call Pt if a prescription is sent. Natty Charles, BELA 10/19/2023 2:19 PM Signed Phoned patient and left detailed message that he can call the Lab[facility] and gave number to call to order a duplicate pair of orthotics at cost. Natty hsieh MA Allergies As of Date: 10/19/2023 Noted Allergy Reaction GRASS POLLEN 12/04/2016 16 - Unknown NASONEX (MOMETASONE) 09/01/2013 14 - Other: See Comments Comments: Made him feel very hot and very jittery and shakey. PREDNISONE 05/25/2013 1 - Mental Status Change SULFA (SULFONAMIDE ANTIBIOTICS) 11/05/2005 16 - Unknown Date Reviewed: 06/04/2023 Reviewed by: Milly Moyer MA - Fully Assessed Reason for Visit: Shoe Inserts [Other] Returning Patient's Call [[phone]] Cmt: Phoned patient and left detailed message that he can call [facility] and gave him the number to order another pair of orthotics. Since insurance doesn't cover them it would be more cost effective. Prescriptions as of 10/19/2023 - metoprolol succinate ER (TOPROL XL) 25 mg 24 hr tablet Take 1 tablet by mouth once daily. - rivaroxaban (XARELTO) 20 mg tablet Take 1 tablet by mouth once daily. - docusate sodium (COLACE) 100 mg capsule Take 1 capsule by mouth twice daily as needed for constipation. - acetaminophen (TYLENOL) 325 mg tablet Take 2 tablets by mouth every 4 hours as needed (post-op pain). - furosemide (LASIX) 20 mg tablet Take 1 tablet by mouth once daily for 7 days. - atorvastatin (LIPITOR) 10 mg tablet TAKE 1 TABLET BY MOUTH EVERY DAY - lysine 500 mg tab Take by mouth. - Vitamin E Acetate, Bulk, 125 unit/mL liqd - finasteride (PROSCAR) 5 mg tablet - escitalopram oxalate (LEXAPRO) 5 mg tablet TAKE 1 TABLET BY MOUTH ONE TIME A DAY - ascorbic acid/bioflavonoids (MONIQEU C ORAL) Take by mouth once daily. - pantoprazole DR (PROTONIX) 40 mg tablet Take 1 tablet by mouth once daily. - UBIDECARENONE (CO Q-10 ORAL) Take by mouth. Patient unsure of dosage Chews two gummies a day - MULTIVITAMIN ORAL Take by mouth once daily. 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] 02/26/2014 Asthma [J45.909] Cancer (HCC) [C80.1] Essential hypertension [I10] Pheochromocytoma [D35.00] 04/16/2014 Abdominal pain [R10.9] 06/15/2014 Irritable bowel syndrome [K58.9] 06/15/2014 Foot pain, right [M79.671] 08/21/2014 Pain in limb [M79.609] 08/21/2014 Pathologic fracture of other specified site [M8*08/21/2014 Chest pain of uncertain etiology [R07.9] 06/06/2015 Melanoma in situ of left upper extremity (HCC) *06/19/2020 Atherosclerosis of aorta (HCC) [I70.0] 10/07/2022 Nonrheumatic mitral valve regurgitation [I34.0] 12/03/2022 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 Normal [facility] CNOVon 08-05-2023 CNOV Office Visit (LOORRM) ---- JORDI FRANCO ([id number]) 1940 M I Xcld* Date Time Provider Department 08/05/23 10:15 AM CHAITANYA WATKINSORRDustin During your visit today, we recorded the following information about you: Chaitanya Watkins, ROSALVA 08/05/2023 10:12 AM Signed SUBJECTIVE: The patient presents today with his [...] signs of periungual abscess, infection, or cellulitis. Ortho-Musculoskelet al: There is discomfort with palpation especially upon [...] as necessary and is current for today. Radha Williamson.P.M. Referring Provider: SELF [200] Allergies As of Date: 08/05/2023 Noted Allergy Reaction GRASS POLLEN 12/04/2016 16 - Unknown NASONEX (MOMETASONE) 09/01/2013 14 - Other: See Comments Comments: Made him feel very hot and very jittery and shakey. PREDNISONE 05/25/2013 1 - Mental Status Change SULFA (SULFONAMIDE ANTIBIOTICS) 11/05/2005 16 - Unknown Date Reviewed: 06/04/2023 Reviewed by: Milly Moyer - Fully Assessed Primary Visit Diagnosis:Onychomyc osis [B35.1] Other Visit Diagnosis:Pain in toes of both feet [M79.674, M79.675] Prescriptions as of 08/05/2023 - metoprolol succinate ER (TOPROL XL) 25 mg 24 hr tablet Take 1 tablet by mouth once daily. - rivaroxaban (XARELTO) 20 mg tablet Take 1 tablet by mouth once daily. - docusate sodium (COLACE) 100 mg capsule Take 1 capsule by mouth twice daily as needed for constipation. - acetaminophen (TYLENOL) 325 mg tablet Take 2 tablets by mouth every 4 hours as needed (post-op pain). - furosemide (LASIX) 20 mg tablet Take 1 tablet by mouth once daily for 7 days. - atorvastatin (LIPITOR) 10 mg tablet TAKE 1 TABLET BY MOUTH EVERY DAY - lysine 500 mg tab Take by mouth. - Vitamin E Acetate, Bulk, 125 unit/mL liqd - finasteride (PROSCAR) 5 mg tablet - escitalopram oxalate (LEXAPRO) 5 mg tablet TAKE 1 TABLET BY MOUTH ONE TIME A DAY - ascorbic acid/bioflavonoids (MONIQUE C ORAL) Take by mouth once daily. - pantoprazole DR (PROTONIX) 40 mg tablet Take 1 tablet by mouth once daily. - UBIDECARENONE (CO Q-10 ORAL) Take by mouth. Patient unsure of dosage Chews two gummies a day - MULTIVITAMIN ORAL Take by mouth once daily. 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] 02/26/2014 Asthma [J45.909] Cancer (HCC) [C80.1] Essential hypertension [I10] Pheochromocytoma [D35.00] 04/16/2014 Abdominal pain [R10.9] 06/15/2014 Irritable bowel syndrome [K58.9] 06/15/2014 Foot pain, right [M79.671] 08/21/2014 Pain in limb [M79.609] 08/21/2014 Pathologic fracture of other specified site [M8*08/21/2014 Chest pain of uncertain etiology [R07.9] 06/06/2015 Melanoma in situ of left upper extremity (HCC) *06/19/2020 Atherosclerosis of aorta (HCC) [I70.0] 10/07/2022 Nonrheumatic mitral valve regurgitation [I34.0] 12/03/2022 Nonrheumatic aortic valve stenosis [I35.0] 12/03/2022 History of stroke [Z86.73] 12/03/2022 History of cardiac radiofrequency ablation [Z98*12/03/2022 GERD (gastroesophageal reflux disease) [K21.9] 12/04/2022 BPH (benign prostatic hyperplasia) [N40.0] 12/04/2022 Other hyperlipidemia [E78.49] 12/04/2022 Encoun (more content not included)... Normal [facility] ---- JORDI FRANCO ([id number]) 1940 M [facility] Xcld* Date Time Provider Department 07/07/23 BARBARA WARNER [facility] During your visit today, we recorded the following information about you: Caro Montalvo RN 07/07/2023 3:07 PM Signed Received fax from [facility] pharmacy for patient's metoprolol. Fax shows different dose from medication list. Spoke with patient who is currently not home. He will have his check the bottle and get back to us. Will need new prescription for metoprolol (see notes on 01/22/2023 had elevated heart rate in the 90's - in the 70's afterwards). JC Gomez Jasmine 07/07/2023 3:28 PM Signed Patient called states he takes 25 mg Metoprolol once daily. Caro Montalvo RN 07/08/2023 1:42 PM Signed Pended new prescription. Caro Montalvo RN Allergies As of Date: 07/07/2023 Noted Allergy Reaction GRASS POLLEN 12/04/2016 16 - Unknown NASONEX (MOMETASONE) 09/01/2013 14 - Other: See Comments Comments: Made him feel very hot and very jittery and shakey. PREDNISONE 05/25/2013 1 - Mental Status Change SULFA (SULFONAMIDE ANTIBIOTICS) 11/05/2005 16 - Unknown Date Reviewed: 06/04/2023 Reviewed by: Milly Moyer - Fully Assessed Reason for Visit: Medication Question [3388] Prescriptions as of 07/08/2023 - rivaroxaban (XARELTO) 20 mg tablet Take 1 tablet by mouth once daily. - metoprolol succinate ER (TOPROL XL) 25 mg 24 hr tablet Take 2 tablets by mouth once daily. - docusate sodium (COLACE) 100 mg capsule Take 1 capsule by mouth twice daily as needed for constipation. - acetaminophen (TYLENOL) 325 mg tablet Take 2 tablets by mouth every 4 hours as needed (post-op pain). - furosemide (LASIX) 20 mg tablet Take 1 tablet by mouth once daily for 7 days. - atorvastatin (LIPITOR) 10 mg tablet TAKE 1 TABLET BY MOUTH EVERY DAY - lysine 500 mg tab Take by mouth. - Vitamin E Acetate, Bulk, 125 unit/mL liqd - finasteride (PROSCAR) 5 mg tablet - escitalopram oxalate (LEXAPRO) 5 mg tablet TAKE 1 TABLET BY MOUTH ONE TIME A DAY - ascorbic acid/bioflavonoids (MONIQUE C ORAL) Take by mouth once daily. - pantoprazole DR (PROTONIX) 40 mg tablet Take 1 tablet by mouth once daily. - UBIDECARENONE (CO Q-10 ORAL) Take by mouth. Patient unsure of dosage Chews two gummies a day - MULTIVITAMIN ORAL Take by mouth once daily. 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] 02/26/2014 Asthma [J45.909] Cancer (HCC) [C80.1] Essential hypertension [I10] Pheochromocytoma [D35.00] 04/16/2014 Abdominal pain [R10.9] 06/15/2014 Irritable bowel syndrome [K58.9] 06/15/2014 Foot pain, right [M79.671] 08/21/2014 Pain in limb [M79.609] 08/21/2014 Pathologic fracture of other specified site [M8*08/21/2014 Chest pain of uncertain etiology [R07.9] 06/06/2015 Melanoma in situ of left upper extremity (HCC) *06/19/2020 Atherosclerosis of aorta (HCC) [I70.0] 10/07/2022 Nonrheumatic mitral valve regurgitation [I34.0] 12/03/2022 Nonrheumatic aortic valve stenosis [I35.0] 12/03/2022 History of stroke [Z86.73] 12/03/2022 History of cardiac radiofrequency ablation [Z98*12/03/2022 GERD (gastroesophageal reflux disease) [K21.9] 12/04/2022 BPH (benign prostatic hyperplasia) [N40.0] 12/04/2022 Other hyperlipidemia [E78.49] 12/04/2022 Encounter for preoperative anesthesiology asses*12/04/2022 12/06/2022 On mechanically assisted ventilation (HCC) [Z99*12/04/2022 12/05/2022 Cardiac insufficiency following cardiac surgery*12/04/2022 12/06/2022 Postoperative pain [G89.18] 12/04/2022 12/07/2022 Stress hyperglycemia [R73.9] 12/04/2022 12/07/2022 Atelectasis [J98.11] 12/05/2022 12/07/2022 Volume overload [E87.70] 12/05/2022 12/07/2022 Thrombocytopenia (HCC) [D69.6] 12/05/2022 Acute blood loss anemia [D62] 12/06/2022 12/07/2022 Word finding difficulty [R47.89] 12/06/2022 Summary [Z91.199] 12/07/2022 Acute on chronic diastolic (congestive) heart f*12/07/2022 Aortic valve disorder [I35.9] 12/08/2022 S/P AVR [Z95.2] 01/14/2023 Encounter Status:Closed by CARO MONTALVO on 07/08/23 [facility]NPNon [facility] ---- JORDI FRANCO ([id number]) 1940 M [facility] Xcld* Date Time Provider Department 06/11/23 CHAITANYA WATKINS During your visit today, we recorded the following information about you: Magalys Shen Cast Tech 06/11/2023 1:48 PM Signed Left message on identified VM that orthotics have come in and may be picked up in the [place] office. Allergies As of Date: 06/11/2023 Noted Allergy Reaction GRASS POLLEN 12/04/2016 16 - Unknown NASONEX (MOMETASONE) 09/01/2013 14 - Other: See Comments Comments: Made him feel very hot and very jittery and shakey. PREDNISONE 05/25/2013 1 - Mental Status Change SULFA (SULFONAMIDE ANTIBIOTICS) 11/05/2005 16 - Unknown Date Reviewed: 06/04/2023 Reviewed by: Milly Moyer - Fully Assessed Reason for Visit: Orthotics [Other] Prescriptions as of 06/11/2023 - rivaroxaban (XARELTO) 20 mg tablet Take 1 tablet by mouth once daily. - metoprolol succinate ER (TOPROL XL) 25 mg 24 hr tablet Take 2 tablets by mouth once daily. - docusate sodium (COLACE) 100 mg capsule Take 1 capsule by mouth twice daily as needed for constipation. - acetaminophen (TYLENOL) 325 mg tablet Take 2 tablets by mouth every 4 hours as needed (post-op pain). - furosemide (LASIX) 20 mg tablet Take 1 tablet by mouth once daily for 7 days. - atorvastatin (LIPITOR) 10 mg tablet TAKE 1 TABLET BY MOUTH EVERY DAY - lysine 500 mg tab Take by mouth. - Vitamin E Acetate, Bulk, 125 unit/mL liqd - finasteride (PROSCAR) 5 mg tablet - escitalopram oxalate (LEXAPRO) 5 mg tablet TAKE 1 TABLET BY MOUTH ONE TIME A DAY - ascorbic acid/bioflavonoids (MONIQUE C ORAL) Take by mouth once daily. - pantoprazole DR (PROTONIX) 40 mg tablet Take 1 tablet by mouth once daily. - UBIDECARENONE (CO Q-10 ORAL) Take by mouth. Patient unsure of dosage Chews two gummies a day - MULTIVITAMIN ORAL Take by mouth once daily. 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] 02/26/2014 Asthma [J45.909] Cancer (HCC) [C80.1] Essential hypertension [I10] Pheochromocytoma [D35.00] 04/16/2014 Abdominal pain [R10.9] 06/15/2014 Irritable bowel syndrome [K58.9] 06/15/2014 Foot pain, right [M79.671] 08/21/2014 Pain in limb [M79.609] 08/21/2014 Pathologic fracture of other specified site [M8*08/21/2014 Chest pain of uncertain etiology [R07.9] 06/06/2015 Melanoma in situ of left upper extremity (HCC) *06/19/2020 Atherosclerosis of aorta (HCC) [I70.0] 10/07/2022 Nonrheumatic mitral valve regurgitation [I34.0] 12/03/2022 Nonrheumatic aortic valve stenosis [I35.0] 12/03/2022 History of stroke [Z86.73] 12/03/2022 History of cardiac radiofrequency ablation [Z98*12/03/2022 GERD (gastroesophageal reflux disease) [K21.9] 12/04/2022 BPH (benign prostatic hyperplasia) [N40.0] 12/04/2022 Other hyperlipidemia [E78.49] 12/04/2022 Encounter for preoperative anesthesiology asses*12/04/2022 12/06/2022 On mechanically assisted ventilation (HCC) [Z99*12/04/2022 12/05/2022 Cardiac insufficiency following cardiac surgery*12/04/2022 12/06/2022 Postoperative pain [G89.18] 12/04/2022 12/07/2022 Stress hyperglycemia [R73.9] 12/04/2022 12/07/2022 Atelectasis [J98.11] 12/05/2022 12/07/2022 Volume overload [E87.70] 12/05/2022 12/07/2022 Thrombocytopenia (HCC) [D69.6] 12/05/2022 Acute blood loss anemia [D62] 12/06/2022 12/07/2022 Word finding difficulty [R47.89] 12/06/2022 Summary [Z91.199] 12/07/2022 Acute on chronic diastolic (congestive) heart f*12/07/2022 Aortic valve disorder [I35.9] 12/08/2022 S/P AVR [Z95.2] 01/14/2023 Encounter Status:Closed by MAGALYS SHEN on 06/11/23 [facility] CNOVon 06-04-2023 CNOV Office Visit (CEPSHL) ---- JORDI FRANCO ([id number]) 1940 M I Xcld* Date Time Provider Department 06/04/23 10:30 AM [facility] During your visit today, we recorded the following information about you: Pulse Blood pressure Weight 74/minute 134/70 93 kg Floyd Spaulding MD 06/04/2023 10:50 AM Signed [facility] [place] Clemencia Dixon Department of Cardiovascular Medicine OUTPATIENT VISIT DATE June 04, 2023 OUTPATIENT VISIT TYPE Established PCP: Raul Dumont DO IMPRESSION: Mr. Franco is a 82 year old male status post PVI with no evidence of recurrence. He feels very well. ASSESSMENT/PLAN: I made no changes to his medications. I will see him again in 1 year. HISTORY OF PRESENT ILLNESS: Mr. Franco is a 82 year old male with paroxysmal atrial fibrillation. He originally had high density atrial ectopy and short atrial bursts subject to ablation some years ago. He had increasingly frequent episodes of true atrial fibrillation with failure of flecainide therapy. He underwent PVI 04/24/2013. He has a history of aortic stenosis, and has undergone aortic valve replacement with mitral valve repair at the same time. He feels very well, and is walking regularly. He has had no significant changes to his health. His exertion is limited primarily by lower extremity arthritis. 06/19/2018: Event monitor. Occasional short runs of ventricular tachycardia, longest 10 beats. Otherwise no major significant arrhythmias. 08/05/2018: Echocardiogram. LVEF 64%. Moderate aortic stenosis with aortic valve area 1.12 cm?. Dimensionless valve index 0.36. 08/05/2018: Nuclear stress test. LVEF 73%. Low risk scan. 12/04/2022: Aortic valve replacement, mitral valve repair. He denies chest pain, shortness of breath, orthopnea, cough, edema, palpitations, PND, lightheadedness or syncope. HISTORY: PAST MEDICAL HISTORY Diagnosis Date Ankle instability left Aortic stenosis Asthma exercise Atrial fibrillation (HCC) BPH (benign prostatic hyperplasia) Bronchitis Cancer (HCC) basal cell Cardiac insufficiency following cardiac surgery 12/04/2022 Cardiomegaly 09/22/2012 borderline Dyslipidemia [place] (hard of hearing) Hypertension Mitral regurgitation Pinched nerve in neck Spinal stenosis Stroke (HCC) 06/07/2007 TIA (transient ischemic attack) 06/07/2007 [facility] PAST SURGICAL HISTORY Procedure Laterality Date ATRIAL FIBRILLATION/FLUTTE R ABLATION 2001,2003, 2012 - Radiofrequency ablation for atrial fibrillation BACK SURGERY HX Disc Surgery FOOT/TOES SURGERY PROC UNLISTED 02/05/2010 Performed by CHAITANYA WATKINS at [facility] [place] GASTROCNEMIUS RECESSION 02/05/2010 Performed by CHAITANYA WATKINS at [facility] [place] PAST SURGICAL HISTORY OF 2005 [...] of Onset Ischemic Heart Disease Father 52 ID other (cancer, lung) Father 56 yrs Asthma Sister Asthma Grandchild No Family History Other colon cancer No Family History Other colon polyps other (heart disease) Brother open heart surgery ALLERGIES INCLUDE: ALLERGIES Allergen Reactions Grass Pollen Unknown Nasonex [Mometasone] Other: See Comments Made him feel very hot and very jittery and shakey. Prednisone Mental Status Change Sulfa (Sulfonamide * Unknown MEDICATIONS INCLUDE: metoprolol succinate ER (TOPROL XL) 25 mg 24 hr tablet Take 2 tablets by mouth once daily. docusate sodium (COLACE) 100 mg capsule Take 1 capsule by mouth twice daily as needed for constipation. acetaminophen (TYLENOL) 325 mg tablet Take 2 tablets by mouth every 4 hours as needed (post-op pain). atorvastatin (LIPITOR) 10 mg tablet TAKE 1 [...] MULTIVITAMIN ORAL Take by mouth once daily. polyethylene glycol 3350 (MIRALAX) 17 gram/dose powder Take 17 g by mouth once (more content not included)... Normal [facility] [id number] 06-04-2023 ECG01 Ventricular Rate : 74 BPM Atrial Rate : 74 BPM P-R Interval : 174 ms QRS Duration : 108 ms Q-T Interval : 418 ms QTC Calculation(Bazett) : 463 ms Calculated P Hermitage : 24 degrees Calculated R Hermitage : -46 degrees Calculated T Hermitage : 24 degrees NORMAL SINUS RHYTHM LEFT AXIS DEVIATION ABNORMAL ECG Confirmed by FLOYD SPAULDING M.D. ([id number]) on 06/10/2023 7:35:58 AM NAME : JORDI FRANCO PID : [id number] : 1940 Gender : Male Race : ORD : Procedure Date : Jun 04 2023 11:24:03 Edit Date : Jun 10 2023 07:35:58 Diagnosis: NORMAL SINUS RHYTHM LEFT AXIS DEVIATION ABNORMAL ECG Confirmed by FLOYD SPAULDING M.D. ([id number]) on 06/10/2023 7:35:58 AM Test Reason : Location : 198 : [facility] 7 Overread By : FLOYD SPAULDING M.D. Edited By : FLOYD SPAULDING M.D. Referred By : FLOYD SPAULDING Acquired by : MILLY MOYER Normal [facility] XR Foot - left AP and Latera l and obliqueon 05-12-2023 IMPRESSION: No acute osseous abnormality. 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 Appliances: PSCB Transcribe Date/Time: May 12 2023 9:35A Dictated by : HUGH LUCERO MD This examination was interpreted and the report reviewed and electronically signed by: JOSE SAMANIEGO MD on May 12 2023 10:55AM EST DIVISION OF RADIOLOGY * * *Final Report* * * DATE OF EXAM: May 12 2023 9:27AM LZX [id number] - XR FOOT 3V AP/LAT/OBL LT / PROCEDURE REASON: Pain * * * * Physician Interpretation * * * * EXAMINATION / TECHNIQUE: XR FOOT 3V AP/LAT/OBL LT PATIENT/TECHNOLOGIS T PROVIDED HISTORY: chronic left ankle pain CLINICAL INFORMATION ( PROVIDED BY ORDERING CLINICIAN) : Pain COMPARISON: Left foot radiograph 01/29/2017 RESULT: Extensive vascular calcifications. Subtalar implant without evidence of hardware complication. Midfoot and first MTP osteoarthritis. DIVISION OF RADIOLOGY Provider, [facility] [place] - 05/12/2023 * * *Final Report* * * DATE OF EXAM: May 12 2023 9:27AM LZX [id number] - XR FOOT 3V AP/LAT/OBL LT / PROCEDURE REASON: Pain * * * * Physician Interpretation * * * * EXAMINATION / TECHNIQUE: XR FOOT 3V AP/LAT/OBL LT PATIENT/TECHNOLOGIS T PROVIDED HISTORY: chronic left ankle pain CLINICAL INFORMATION ( PROVIDED BY ORDERING CLINICIAN) : Pain COMPARISON: Left foot radiograph 01/29/2017 RESULT: Extensive vascular calcifications. Subtalar implant without evidence of hardware complication. Midfoot and first MTP osteoarthritis. IMPRESSION IMPRESSION: No acute osseous abnormality. 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 Patient denies any falls in last 12 months, voices no worry about falling, exhibits no problems with sitting and standing. Pt voices understanding with keeping walk way area free of clutter to prevent tripping and/or falling. [place] Advance Directives reviewed, on file in chart. [...] no concerns. Reviewed pain symptoms with patient: 0/10 Reviewed all outside providers that patient follows. [...] follow up visits. Patient follows up with Technical Sales Consultant, last visit notes available in chart and have been reviewed. Cardiac Healthy Nutritional handout reviewed and provided for (more content not included)... Normal [facility] Comment on above: Result Comment: Elec tronically Signed By: MP MARTINEZ CNP\.br\Date and Time Signed: 05/10/23 09:41 EST\.br\Electronically Co-Signed By: Tony Mueller LPN\.solomon\Date and Time Co-Signed: 05/07/23 14:43 EST Patient Educationon 05-07-20 Patient Education Cardiovascular Hypertension, Adult High blood [...] oz glass (more content not included)... Normal [facility] Screenson 05-06-2023 Screens [id number] Normal [facility] Ambulatory Visit Summaryon 1 07-03-2022 Ambulatory Visit Summary MARYJORDI VELOZ Harvey :1940 Visit Date:05/03/2023 Ambulatory Visit Instructions Your [...] IVONNE GRANT PA-C Where: [facility] Normal [address] [place] [address]-\.br\ Medications\.br\ What How Much When Instructions\.br\ Unchanged [...] po daily \.br\ Allergies\.br\ predniSONE (Unknown, AOF)\.br\ sulfamethoxazole\. br\ Problems\.br\ Ongoing - Any problem that you are currently receiving treatment for.\.br\ Atherosclerosis of abdominal aorta\.br\ ATRIAL FIBRILLATION\.br\ BPH with urinary obstruction\.br\ Chest wall contusion\.br\ Claustrophobia\.br \ Constipation\.br\ Cough\.br\ Dizziness\.br\ Fidgeting\.br\ Foreskin problem\.br\ KELI (generalized anxiety disorder)\.br\ GERD (gastroesophageal reflux disease)\.br\ Groin rash\.br\ HTN - Hypertension\.br\ Insomnia\.br\ Mixed hyperlipidemia\.br \ Panic attacks\.br\ SOB (shortness of breath)\.br\ Historical [...] hard liquor (44 mL).\.br\ Lifestyle\.br\ ? \.br\ [place] your teeth every morning and night with [...] provider if you need to take a cholesterol-loweri ng medicine (statin).\.br\ ? \.br\ Find healthy ways [...] sure you follow all gun safety procedures.\.br\ [facility] ED Note-Physicianon 04-12-20 ED Note-Physician Basic Information [...] they [place] go [place]. The patient denies any spinning. He states [...] both correctly = 0 Open and close eyes/dye mixer release hand: Obeys both correctly = 0 [...] and Complexity of Problems Differential Diagnosis: [] [facility] Data External documents reviewed: [] My EKG [...] Raul DUMONT In 3 days 04/14/2023 EST [address] [facility] [place] [address]- [phone] Business (1) Additional Instructions: Return to the emergency room if your dizziness recurs or any new symptoms. Patient Education D (more content not included)... Normal [facility] Comment on above: Result Comment: Elec tronically Signed By: Jh Rosario M.D..br\Date and Time Signed: 04/12/23 11:19 EST Auto Diffon 04-11-2023 Basophils/100 WBC (Bld) 0.7 % Normal 0.0-2.0 [facility] Comment on above: Order Comment: Order Added by Discern Expert. Performed By: #### 1 1579404, 44326129, 1630381, 6672783, 3741890, 8199265, 7321602, 44879677 ####[facility] [address] [place] [address] Basophils/Leukocytes Auto (Bld) [Pure # fraction] 0.0 E9/L Normal 0.0-0.2 [facility] Comment on above: Order Comment: Order Added by Discern Expert. Performed By: #### 1 9238753, 93655637, 8324205, 7124269, 3732177, 5097940, 2136842, 00066108 ####[facility] [address] [place] [address] Eosinophils/100 WBC (Bld) 2.5 % Normal 0.0-8.0 [facility] Comment on above: Order Comment: Order Added by Discern Expert. Performed By: #### 1 0705822, 46660898, 3233587, 1136603, 1888770, 4338548, 3741384, 99471345 ####[facility] [address] [place] [address] Eosinophils/Leukocyt es Auto (Bld) [Pure # fraction] 0.1 E9/L Normal 0.0-0.5 [facility] Comment on above: Order Comment: Order Added by Discern Expert. Performed By: #### 1 8611922, 33220066, 1892274, 3526245, 6302914, 1287429, 7786819, 63699637 ####[address] [place] [address] Lymphocytes/100 WBC (Bld) 16.8 % Normal 14.0-50.0 [facility] Comment on above: Order Comment: Order Added by Discern Expert. Performed By: #### 1 0297068, 12124348, 7721255, 7279206, 2522742, 6886840, 6259002, 63094893 ####[address] [address] Lymphocytes/Leukocyt es Auto (Bld) [Pure # fraction] 0.6 E9/L Low 1.0-4.0 [facility] Comment on above: Order Comment: Order Added by Discern Expert. Performed By: #### 1 0641160, 45891516, 1751567, 3294896, 2459969, 4291001, 0507642, 61207787 ####[address] [address] Monocytes/100 WBC (Bld) 15.1 % High 4.0-14.0 [facility] Comment on above: Order Comment: Order Added by Discern Expert. Performed By: #### 1 3999321, 86977425, 2412695, 3058761, 4466429, 1090265, 5442268, 59819719 ####[address] [place] [address] Monocytes/Leukocytes Auto (Bld) [Pure # fraction] 0.5 E9/L Normal 0.2-1.0 [facility] Comment on above: Order Comment: Order Added by Discern Expert. Performed By: #### 1 9762115, 53129603, 2301992, 2748467, 0627224, 3355602, 3302787, 24846251 ####[address] [place] [address] Neutrophils/100 WBC (Bld) 64.9 % Normal 36.0-75.0 [facility] Comment on above: Order Comment: Order Added by Discern Expert. Performed By: #### 1 9162698, 56209476, 8826653, 9365788, 2111829, 8269779, 8193228, 59471786 ####[facility] [address] [place] [address] Neutrophils/Leukocyt es Auto (Bld) [Pure # fraction] 2.3 E9/L Normal 2.0-7.5 [facility] Comment on above: Order Comment: Order Added by Discern Expert. Performed By: #### 1 4424623, 69193924, 3205231, 8778002, 7254613, 4178670, 4563680, 68354948 ####[facility] [address] [place] [address] BMPon 04-11-2023 Creatinine [Mass/Vol] 1.0 mg/dL Normal 0.5-1.3 [facility] Comment on above: Performed By: #### 1 2683772, 19201625, 6480498, 8847428, 5040712, 8679728, 0865603, 40563234 ####[facility] [address] [place] [address] Urea nitrogen [Mass/Vol] 24 mg/dL High 5-21 [facility] Comment on above: Performed By: #### 1 6530859, 55052221, 8330623, 9819556, 7289406, 7269554, 3044976, 88302082 ####[facility] [address] [place] [address] Urea nitrogen/Creatinine [Mass ratio] 24 No Units High 10-20 [facility] Comment on above: Performed By: #### 1 2540176, 59588652, 3472908, 7076014, 4199590, 9398944, 6550435, 65267169 ####[facility] [address] [place] [address] Anion gap [Moles/Vol] 8 mmol/L Normal 6-16 [facility] Comment on above: Performed By: #### 1 3919633, 21329499, 4044253, 9167136, 4384352, 7069367, 8438874, 58033023 ####[facility] [address] [place] [address] Calcium [Mass/Vol] 9.1 mg/dL Normal 8.9-11.1 [facility] Comment on above: Performed By: #### 1 0002181, 80483213, 6409553, 7715174, 0468035, 7619427, 0699401, 09953171 ####[facility] [address] [place] [address] Chloride [Moles/Vol] 105 mmol/L Normal 101-111 [facility] Comment on above: Performed By: #### 1 0613655, 14974118, 5060533, 4753515, 2688589, 8554428, 3079316, 52610321 ####[facility] [address] [place] [address] CO2 [Moles/Vol] 29 mmol/L Normal 21-31 [facility] Comment on above: Performed By: #### 1 1445443, 91102811, 7758967, 0791085, 7668515, 5289503, 1041038, 91027136 ####[facility] [address] [place] [address] Glucose [Mass/Vol] 100 mg/dL Normal 55-199 [facility] Comment on above: Result Comment: If t his glucose result represents a fasting glucose, interpretation should refer to the following reference range: 55-99 mg/dL Performed By: #### 1 7519401, 70488241, 1450570, 8136566, 8328273, 9930629, 9517009, 84100331 ####[facility] [address] [place] [address] Potassium [Moles/Vol] 3.6 mmol/L Normal 3.5-5.3 [facility] Comment on above: Performed By: #### 1 6169253, 89419924, 6959560, 2718917, 3486186, 3271349, 6333884, 61419962 ####[facility] [address] [place] [address] Sodium [Moles/Vol] 138 mmol/L Normal 135-145 [facility] Comment on above: Performed By: #### 1 4020613, 36328835, 8497910, 9454203, 4411613, 5086719, 0871122, 89201093 ####[address] [place] [address] CBC w/ Auto Diffon 3 Erythrocyte distribution width (RBC) [Ratio] 15.3 % High 10.9-14.2 [facility] Comment on above: Performed By: #### 1 2418735, 60734552, 5556002, 1196966, 4015707, 1900280, 1665156, 07014337 ####[address] [place] [address] Hematocrit (Bld) [Volume fraction] 36.6 % Low 37.7-49.0 [facility] Comment on above: Performed By: #### 1 6343279, 41757398, 6242235, 9676520, 5464272, 4089389, 9946189, 06677677 ####[address] [place] [address] Hemoglobin (Bld) [Mass/Vol] 11.9 g/dL Low 13.5-17.5 [facility] Comment on above: Performed By: #### 1 0797548, 95850772, 9326037, 4978924, 1437195, 0875435, 8373840, 44565804 ####[facility] [address] [place] [address] MCH (RBC) [Entitic mass] 27.5 pg Normal 27.0-34.0 [facility] Comment on above: Performed By: #### 1 5693147, 79900290, 1340258, 1585809, 3445173, 2744503, 8153397, 62645202 ####[address] [address] MCHC (RBC) [Mass/Vol] 32.5 g/dL Normal 31.4-36.0 [facility] Comment on above: Performed By: #### 1 8725840, 07336350, 3542105, 2025104, 5862198, 3928797, 2885380, 15138931 ####[facility] [address] [place] [address] MCV (RBC) [Entitic vol] 84.6 fL Normal 80.0-100.0 [facility] Comment on above: Performed By: #### 1 9575715, 76289916, 9627222, 1395849, 8109537, 3025858, 5102460, 79879394 ####[address] [place] [address] Platelet mean volume (Bld) [Entitic vol] 7.1 fL Normal 6.4-10.8 [facility] Comment on above: Performed By: #### 1 8593764, 12253808, 0991282, 4840662, 9822457, 9343766, 1980011, 24360476 ####[facility] [address] [place] [address] Platelets (Bld) [#/Vol] 163.0 E9/L Normal 150.0-500.0 [facility] Comment on above: Performed By: #### 1 7032498, 64718744, 7431724, 8643910, 1578811, 1232011, 4707656, 08265689 ####[facility] [address] [place] [address] RBC (Bld) [#/Vol] 4.3 E12/L Normal 4.3-5.9 [facility] Comment on above: Performed By: #### 1 5344868, 88262662, 3883911, 1809672, 6813264, 7925145, 0641853, 43086608 ####[facility] [address] [place] [address] WBC corrected for nucl RBC Auto (Bld) [#/Vol] 3.6 E9/L Low 4.0-11.0 [facility] Comment on above: Performed By: #### 1 7034195, 26281050, 6650783, 6123885, 9983381, 4436947, 0872301, 60425323 ####[facility] [address] [place] [address] CHEMISTRYOrdered By: SYSTEM SYSTEM on 04-11-2023 Albumin [Mass/Vol] 3.8 g/dL Normal 3.3 - 5.0 gm/dL F [facility] Remisol Albumin/Globulin [Mass ratio] 1.2 {ratio} Normal [...] 1.0 mg/dL Normal 0.5 - 1.3 mg/dL [facility] Remisol GFR/1.73 sq M.predicted among non-blacks MDRD (S/P/Bld) [Vol rate/Area] 75 mL/min/1.73 m2 Normal >=59mL/min/1.73 m2 [facility] Chem S Comment on above: Interpretive Data: [...] g/dL Normal 6.0 - 7.8 gm/dL F [facility] Remisol Sodium [Moles/Vol] 138 mmol/L Normal 135 - 145 mmol/L [facility] Remisol Troponin I.cardiac [Mass/Vol] 8.50 pg/mL Low 15.90 - 38.40 pg/mL [facility] Remisol Comment on above: Interpretive Data: T he 95% CI (Confidence Interval) PPV (Positive Predictive Value) for myocardial infarction in females is 38 pg/mL, in males 51 pg/mL. The results should be used in conjunction with clinical conditions of myocardial infarction. (Access High Sensitivity Troponin I Instructions For Use, Dov [place], January 2018) Urea nitrogen [Mass/Vol] 24 mg/dL High 5 - 21 mg/dL [facility] Remisol Urea nitrogen/Creatinine [Mass ratio] 24 mg/mg High 10 - 20 [facility] Remisol COAGULATIONOrdered By: Wendi Hernandez on 04-11-2023 aPTT Coag (PPP) [Time] 36.3 s Normal 25.1 - 36.5 second(s) [facility] Auto Coag Comment on above: Interpretive Data: P arameter 15 days - 4 weeks 1 - 5 months 6 - 11 months 1 - 5 years 6 - 10 years 11 - 17 years PTT Mean: 35.4 (27.6-45.6) Mean: 33.5 (24.8-40.7) Mean: 32.4 (25.1-40.7) Mean: 31.6 (24.0-39.2) Mean: 31.6 (26.9-38.7) Mean: 31.0 (24.6-38.4) Pediatric Reference ranges were obtained from a study by mando Joshua alAdrianne prepared from 1437 samples obtained at 7 different centers using the same coagulation reagent and instrumentation as [facility]. Currently there are no coagulation studies available worldwide for children to 14 days, and no normal ranges. Heparin therapeutic range (represented by Anti-Factor Xa activity of 0.2 - 0.4 U/mL) corresponds to PTT of 56.6 - 109.0 sec. INR Coag (PPP) [Relative time] 1.2 {INR} Invalid Interpretation Code [facility] Auto Coag Comment on above: Interpretive Data: I NR results are specifically intended to assess patients stabilized on long-term Anticoagulation therapy suggested INR s Less Intensive Anticoagulation 2.0 3.0 Conventional Range 3.0 4.5 PT Coag (PPP) [Time] 13.9 s High 9.4 - 1 2.5 second(s) [facility] Auto Coag Comment on above: Interpretive Data: 1 5 days - 4 weeks 1 - 5 months 6 -11 months 1-5 years 6-10 years 11 -17 years Mean: 11.2 (9.5-12.6) Mean: 11.0 (9.7-12.8) Mean: 11.0 (9.8-13.0) Mean: 11.3 (9.9-13.4) Mean: 11.7 (10.0-14.6) Mean: 11.8 (10.0 - 14.1) Pediatric Reference ranges were obtained from a study by mando Joshua alAdrianne prepared from 1437 samples obtained at 7 different centers using the same coagulation reagent and instrumentation as [facility]. Currently there are no coagulation studies available [...] MD, V. Transcribed by: GREGG Technologist: ORLY [facility] Consent for Treatmenton Consent for Treatment [id number] [id number] [facility] Discharge Instructionson Discharge Instructions [id number] Normal [facility] ED Clinical Summaryon 2022 ED Clinical Summary [place] [id number] ED Clinical Summary Person Information Name: JORDI FRANCO Chyna/[facility] Age: 82 Years : 1940 Sex: Male Language: Malay PCP: Raul DUMONT DO Marital Status: Visit [...] 04/11/2023 12:30:48 04/11/2023 12:30:48 04/11/2023 12:30:48 ADDRESS: [address] [place] [phone] PHYS DOC NOTES: MEDICAL INFORMATION: Prescriptions Given: [...] Dizziness Follow up: With: Address: When: Raul JULIA [address] [facility], [facility] [place] [phone] [employer] (1) In 3 days 04/14/2023 Comments: Return to the emergency room if your dizziness recurs or any new symptoms. DIAGNOSIS: 1:Dizziness Normal [facility] ED Patient Education Noteon 04-11-2023 ED Patient [...] is good. ? 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 ? Take obrk-wfn-ovddsis and prescription medicines only as told by [...] Reviewed: 04/28/2021 Elsevier Patient Education ? 2022 [employer] Normal [facility] ED Patient Summaryon 023 ED Patient Summary [place] [id number] Patient Discharge Instructions Person Information Name: SALVADOR JORDI Harvey Age: 82 Years Arrival Date: 04/11/2023 09:36:59 Discharge Diagnosis: 1:Dizziness Primary Care Physician: Raul DUMONT DO Provider Information Primary Provider: Jh Rosario M.D. Advanced Quantity Surveyor:None The exam and treatment you received in the Emergency Department were for an urgent problem and are not intended as complete care. It is important that you follow up with a doctor, nurse practitioner, or physician?s speech assistant for ongoing care. If your symptoms [...] Instructions: With: Address: When: Raul DUMONT [address] [facility], [facility] [place] [address] [phone] Business (1) In 3 days 04/14/2023 Comments: [...] opioids can be used to help relieve hjyytnfq-nc-tkujdx pain and are often prescribed following a [...] guidance from the Food and Drug Administration (www.fda.gov/Drugs/ ResourcesForYou). ? Visit www.cdc.gov/drugove rdose to learn about the risks of opioids abuse and overdose. ? If you believe you may be struggling with addiction, tell your health day care worker and ask for kierra (more content not included)... Normal [facility] HEMATOLOGYOrdered By: SYSTEM SYSTEM on 04-11-2023 Basophils/100 [...] 15.3 % High 10.9 - 14.2 % [facility] HemeAutoSS Hematocrit (Bld) [Volume fraction] 36.6 % Low 37.7 - 49.0 % FT HemeAutoSS Hemoglobin (Bld) [Mass/Vol] 11.9 g/dL Low 13.5 - 17.5 gm/dL [facility] HemeAutoSS MCH (RBC) [Entitic mass] 27.5 pg Normal 27.0 - 34.0 pg FT HemeAutoSS MCHC (RBC) [Mass/Vol] 32.5 g/dL Normal 31.4 - 36.0 gm/dL FT HemeAutoSS MCV (RBC) [Entitic vol] 84.6 fL Normal 80.0 - 100.0 fL FT HemeAutoSS Platelet mean volume (Bld) [Entitic vol] 7.1 fL Normal 6.4 - 10.8 fL FT HemeAutoSS Platelets (Bld) [#/Vol] 163.0 E9/L Normal 150.0 - 500.0 E9/L [facility] HemeAutoSS RBC (Bld) [#/Vol] 4.3 E12/L Normal 4.3 - 5.9 E12/L FT HemeAutoSS WBC corrected for nucl RBC Auto (Bld) [#/Vol] 3.6 E9/L Low 4.0 - 11.0 E9/L [facility] HemeAutoSS Hep Func Panelon 04-11-2023 Albumin [Mass/Vol] 3.8 g/dL Normal 3.3-5.0 [facility] Comment on above: Performed By: #### 1 8457451, 42131631, 4165660, 0664827, 7130763, 2114411, 7208478, 49459691 ####[facility] [address] [place] [address] Albumin/Globulin (S) [Mass conc ratio] 1.2 Normal 1.1-2.2 [facility] Comment on above: Performed By: #### 1 2375216, 61913141, 1978149, 3593891, 9516269, 6151736, 9229017, 08675253 ####[facility] [address] [place] [address] ALP [Catalytic activity/Vol] 79 Int._Unit/L Normal 21-98 [facility] Comment on above: Performed By: #### 1 2249592, 55823615, 5850845, 2766105, 4188546, 7430364, 1177424, 38050021 ####[facility] [address] [place] 3[address]157 ALT No additional P-5'-P [Catalytic activity/Vol] 16 Int._Unit/L Normal 6-46 [facility] Comment on above: Performed By: #### 1 0494800, 25272643, 3533097, 3588326, 1092524, 3712160, 3258880, 72951639 ####[facility] [address] [place] [address] AST [Catalytic activity/Vol] 24 Int._Unit/L Normal 5-43 [facility] Comment on above: Performed By: #### 1 3352808, 76415851, 4663121, 9474642, 0929452, 3382759, 3198252, 58974890 ####[facility] [address] [place] 3[address]157 Bilirubin [Mass/Vol] 0.5 mg/dL Normal 0.0-1.1 [facility] Comment on above: Performed By: #### 1 8764545, 19322417, 0569266, 7753964, 3551086, 2959378, 0302319, 50839557 ####[facility] [address] [place] [address] Bilirubin.direct [Mass/Vol] 0.1 mg/dL Normal 0.1-0.4 [facility] Comment on above: Performed By: #### 1 4211225, 91528125, 1708636, 3865393, 2296666, 2668866, 8298916, 44688374 ####[facility] [address] [place] [address] Bilirubin.indirect [Mass or moles/Vol] 0.4 mg/dL Normal 0.1-0.9 [facility] Comment on above: Performed By: #### 1 1477654, 38543749, 7811033, 9745379, 4303908, 3375158, 4444911, 63247820 ####[facility] [address] [place] [address] Globulin (S) [Mass/Vol] 3.1 g/dL Normal 1.4-4.0 [facility] Comment on above: Performed By: #### 1 6519107, 63305119, 0445194, 0426852, 2034259, 9398062, 5124660, 71365180 ####[facility] [address] [place] [address] Protein [Mass/Vol] 6.9 g/dL Normal 6.0-7.8 [facility] Comment on above: Performed By: #### 1 4893453, 50737588, 0641045, 1361752, 2996471, 4997083, 6204150, 83993877 ####[facility] [address] [place] [address] Magnesiumon 04-11-2023 Magnesium [Mass/Vol] 2.0 mg/dL Normal 1.3-2.4 [facility] Comment on above: Performed By: #### 1 0328744, 66888095, 8440343, 2791256, 7294703, 7855948, 9388243, 82682381 ####[facility] [address] [place] [address] Monitor Recordon 04-11-2023 Monitor Record [id number]#[id number] Normal [facility] PT & PTTon 04-11-2023 aPTT Coag (PPP) [Time] 36.3 second(s) Normal 25.1-36.5 [facility] Comment on above: Result Comment: Para meter [...] the same coagulation reagent and instrumentation as [facility]. Currently there are no coagulation studies available worldwide for children to 14 days, and no normal ranges. Heparin therapeutic range (represented by Anti-Factor Xa activity of 0.2 - 0.4 U/mL) corresponds to PTT of 56.6 - 109.0 sec. Performed By: #### 1 9273017, 50404645, 8802286, 0656798, 4122244, 7330838, 2289750, 50272423 ####[facility] [address] [place] [address] INR Coag (PPP) [Relative time] 1.2 {INR} Invalid Interpretation Code [facility] Comment on above: Result Comment: INR results are specifically intended to assess patients stabilized on long-term Anticoagulation therapy suggested INR?s ?Less Intensive Anticoagulation? 2.0 ? 3.0 Conventional Range 3.0 ? 4.5 Performed By: #### 1 2665856, 44811478, 6063404, 5953891, 2585590, 1459319, 4452839, 32390820 ####[facility] [address] [place] [address] PT Coag (PPP) [Time] 13.9 second(s) High 9.4-12.5 [facility] Comment on above: Result Comment: 15 d [...] the same coagulation reagent and instrumentation as [facility]. Currently there are no coagulation studies available worldwide for children to 14 days, and no normal ranges. Performed By: #### 1 0999411, 56914729, 5586712, 4496430, 2954348, 4151158, 9276026, 66318940 ####[facility] [address] [place] [address] Troponin 0 Hr.on 04-11-2023 Troponin I.cardiac [Mass/Vol] 8.50 pg/mL Low 15.90-38.40 [facility] Comment on above: Result Comment: The 95% CI (Confidence Interval) PPV (Positive Predictive Value) for myocardial infarction in females is 38 pg/mL, in males 51 pg/mL. The results should be used in conjunction with clinical conditions of myocardial infarction. (Access High Sensitivity Troponin I Instructions For Use, Dov [place], January 2018) Performed By: #### 1 9198975, 28724548, 3167705, 2436591, 4467114, 1096452, 3819345, 65495627 ####[facility] [address] [place] [address] UA With Cult Reflexon 2022 Bilirubin Ql (U) Negative Normal Negative [facility] Comment on above: Performed By: #### 1 1324838 ####[place] [place] [address] Clarity (U) CLEAR Normal Clear [facility] Comment on above: Performed By: #### 1 0547255 ####[place] [address] [place] [address] Color (U) YELLOW Normal Yellow [facility] Comment on above: Performed By: #### 1 0622562 ####[place] [address] [place] [address] Epithelial cells.squamous LM.HPF (Urine sed) [#/Area] 0-2 Normal 0-2 [facility] Comment on above: Performed By: #### 1 6835707 ####[facility] [address] [place] [address] Glucose Test strip (U) [Mass/Vol] Negative Normal Negative [facility] Comment on above: Performed By: #### 1 1581782 ####[address] [address] Hemoglobin Ql (U) Negative Normal Negative [facility] Comment on above: Performed By: #### 1 0430822 ####[address] [address] Ketones (U) [Mass/Vol] Negative Normal Negative [facility] Comment on above: Performed By: #### 1 6332981 ####[address] [address] [place].plasma/Lithi um.RBC (Bld) [Mass ratio] 0-3 Normal 0-3 [facility] Comment on above: Performed By: #### 1 2156261 ####[address] [address] Nitrite Ql (U) Negative Normal Negative [facility] Comment on above: Performed By: #### 1 4358606 ####[address] [address] pH (U) 6.0 [pH] Invalid Interpretation Code 5.0-9.0 [facility] Comment on above: Performed By: #### 1 2913927 ####[address] [address] Protein (U) [Mass/Vol] Negative Normal Negative [facility] Comment on above: Performed By: #### 1 8768755 ####[address] [address] Specific gravity (U) [Rel density] 1.015 Invalid Interpretation Code 1.005-1.030 [facility] Comment on above: Performed By: #### 1 8011573 ####[address] [address] Type of Urine collection method Clean Catch Normal [facility] Comment on above: Performed By: #### 1 9356918 ####[facility] [address] [place] [address] Urobilinogen Qn (U) 0.2 {Nasra'U}/dL Normal 0.0-1.0 [facility] Comment on above: Performed By: #### 1 9144290 ####[facility] [address] [place] [address] WBC Auto Ql (U) Negative Normal Negative [facility] Comment on above: Performed By: #### 1 8383182 ####[facility] [address] [place] [address] WBC LM.HPF (Urine sed) [#/Area] 0-5 Normal 0-5 [facility] Comment on above: Performed By: #### 1 0944130 ####[facility] [address] [place] [address] URINALYSISOrdered By: Matthew Hernandez on 04-11-2023 Bilirubin [...] AM) Normal Negative [facility] UA Auto SS [place].plasma/Lithi um.RBC (Bld) [Mass ratio] 0-3 /HPF Normal 0-3/HPF [facility] UA Auto SS Nitrite Ql (U) Negative (04/11/23 11:25 AM) Normal Negative [facility] UA Auto SS pH (U) 6.0 *NA* (04/11/23 11:25 AM) Invalid Interpretation Code 5.0 - 9.0 [facility] UA Auto SS Protein (U) [Mass/Vol] Negative (04/11/23 11:25 AM) Normal Negative [facility] UA Auto SS Specific gravity (U) [Rel density] 1.015 *NA* (04/11/23 11:25 AM) Invalid Interpretation Code 1.005 - 1.030 [facility] UA Auto SS UA Spec Desc Clean Catch (04/11/23 11:25 AM) Normal [facility] UA Auto SS Urobilinogen Qn (U) 0.3488722 {Nasra'U}/dL Normal 0.0 - 1.0 EU/dL [facility] UA Auto SS WBC Auto Ql (U) Negative (04/11/23 11:25 AM) Normal Negative [facility] UA Auto SS WBC LM.HPF (Urine sed) [#/Area] 0-5 /HPF Normal 0-5/HPF [facility] UA Auto SS XR Chest Single Viewon [...] mGy = na DAP = na Normal [facility] eGFRon 04-11-2023 GFR/1.73 sq M.predicted among non-blacks MDRD (S/P/Bld) [Vol rate/Area] 75 mL/min/1.73 m2 Normal >=59 [facility] Comment on above: Order Comment: Order added by Discern Expert. Result Comment: Nuclear Radiologist lin kidney disease could be indicated at eGFR's of less than 60 mL/min/1.73m2. Kidney failure is indicated at less than 15 mL/min/1.73m2. Performed By: #### 1 [id number], 56349826, 1479357, 6894678, 3445509, 8849185, 0302848, 38880315 ####[facility] [address] [place] [address] CNOVon 01-14-2023 [facility] ---- JORDI FRANCO ([id number]) 1940 M I Xcld* Date Time Provider Department 01/14/23 1:30 PM [facility] During your visit today, we recorded the following information about you: Pulse Blood pressure Weight Height 95/minute 120/74 90.3 kg 1.778 m Barbara Warner APRN.LABORER SHELLFISH PROCESSING, DNP 01/14/2023 1:50 PM Signed [facility] [place] Clem[facility] Dixon Department of Cardiovascular Medicine SECTION OF CLINICAL CARDIOLOGY OUTPATIENT VISIT DATE January 14, 2023 OUTPATIENT VISIT TYPE ESTABLISHED PRIMARY CARE PHYSICIAN: Raul Dumont [address] [place] [address] REFERRING PHYSICIAN: Hugo Solano [address] [facility] [place] [address] CHIEF COMPLAINT: Established Patient and Hospital Follow [...] cardiac surgery 12/04/2022 Cardiomegaly 09/22/2012 borderline Dyslipidemia [place] (hard of hearing) Hypertension Mitral regurgitation Pinched nerve in neck Spinal stenosis Stroke (HCC) 06/07/2007 TIA (transient ischemic attack) 06/07/2007 [facility] PAST SURGICAL HISTORY Procedure Laterality Date ATRIAL FIBRILLATION/FLUTTE R ABLATION 2001,2003, 2012 - Radiofrequency ablation for atrial fibrillation BACK SURGERY HX Disc Surgery FOOT/TOES SURGERY PROC UNLISTED 02/05/2010 Performed by CHAITANYA WATKINS at [facility] ERIKA GASTROCNEMIUS RECESSION 02/05/2010 Performed by CHAITANYA WATKINS at [facility] LORLIA PAST SURGICAL HISTORY OF 2005 [...] of Onset Ischemic Heart Disease Father 52 ID other (cancer, lung) Father 56 yrs Asthma [...] mouth once daily for 7 days. mag [id number] rt xt 500-3,000-150 mg-unit-mg tab Take by mouth. (Patient not taking: Reported on 12/16/2022) lysine 500 mg tab Take by mouth. (Patient not taking: Reported on 12/16/2022) Vitamin E Acetate, Bulk, 12 (more content not included)... [facility] EKGon 01-14-2023 Electrocardiogram Systolic BP : 120 mmHg Diastolic BP : 74 mmHg Ventricular Rate : 95 BPM Atrial Rate : 95 BPM P-R Interval : 166 ms QRS Duration : 98 ms Q-T Interval : 366 ms QTC Calculation(Bazett) : 459 ms Calculated P Hermitage : 10 degrees Calculated R Hermitage : -48 degrees Calculated T Hermitage : 32 degrees NORMAL SINUS RHYTHM LEFT AXIS DEVIATION ABNORMAL ECG Confirmed by SAVANNA ZHANG MD ([id number]) on 12/01/2023 9:36:11 PM NAME : JORDI FRANCO PID : [id number] : 1940 Gender : Male Race : ORD : Procedure Date : Jan 14 2023 13:15:35 Edit Date : Dec 01 2023 21:36:14 Diagnosis: NORMAL SINUS RHYTHM LEFT AXIS DEVIATION ABNORMAL ECG Confirmed by SAVANNA ZHANG MD ([id number]) on 12/01/2023 9:36:11 PM Test Reason : Location : 6 : [facility] Overread By : SAVANNA ZHANG MD Edited By : SAVANNA ZHANG MD Referred By : HUGO SOLANO Acquired by : BH, [facility] XR CHEST 2V FRONTAL/LATon [facility] - Microbiology an d Antimicrobial susceptibilityon 12-03-2022 S. aureus and MRSA panel TINO+probe (Nose) Negative Negative [facility] CREATININE, BLOOD (POC)on Creatinine [Mass/Vol] 1.20 mg/dL 0.7 - 1.4 mg/dL [facility] eGFR (POCT) [facility] CTA CHEST (GATED) W IVCONon 12-01-2022 [facility] ECHO TRANSESOPHAGEALon 10-19 [facility] LVEF ECHO TRANSESOPHAGEALon 10-19-2022 LV Ejection Fraction 55 % [facility] METHYLMALONIC ACID (MMA)on 0 12-31-2021 Methylmalonic Acid, Serum 198 nmol/L Normal 0-378 [facility] Comment on above: Performed By: #### M NY2 #### [facility] [address] [address] [address] Bryn Santo MR head/brain wo conon 12-30 MR head/brain wo con [facility] [place] [address] MRI Report Signed Patient: Jordi Franco MR#: [id number] : 1940 Acct:[id number] Age/Sex: 81 / M ADM Date: 12/30/21 Loc: [facility] Room: Type: [facility] Attending Dr: Raghav Hubbard MD Copies to: [...] Dillon Flores M.D.12/30/2021 10:26 AM Dictation Location: [place] [address] Transcribed By: [facility] 12/30/21 1026 Dictated By: Dillon Flores II, MD 12/30/21 1023 Signed By: 12/30/21 1026 [facility] TSHon 12-25-2021 TSH 1.025 uIU/mL Normal 0.358-3.740 [facility] Comment on above: Performed By: #### T SH #### [facility] [address] [address] [address] Bryn Santo VIT B12 AND FOLATEon 022 Cobalamin (Vitamin B12) [Mass/Vol] 1345.0 pg/mL Critically high 193.0-986.0 [facility] Comment on above: Performed By: #### B 12FOL #### [facility] [address] [address] [address] Bryn Santo FOLATE 21.70 ng/mL Normal 8.60-58.90 [facility] Comment on above: Performed By: #### B 12FOL #### [facility] [address] [address] [address] chest wo conon 06-27-2021 CT chest wo con [facility] [address] [place] [address] [address] Scan Report Signed Patient: Jordi Franco MR#: [id number] : 1940 Acct:[id number] Age/Sex: 80 / M ADM Date: 06/27/21 Loc: ER Room: Type: [facility] ER Attending Dr: Ordering Provider: Kate King [...] Td Garcia M.D.06/27/2021 8:35 PM Dictation Location: [place] [address] Transcribed By: [facility] 06/27/212034 Dictated By: Td Garcia DO 06/27/212025 Signed By: 06/27/212034 Normal [facility] XR hip LT min 2V(w/wo pelvis )*on 06-27-2021 XR hip LT min 2V(w/wo pelvis)* [facility] [address] [address] XRay Report Signed Patient: Jordi Franco MR#: [id number] : 1940 Acct:[id number] Age/Sex: 80 / M ADM Date: 06/27/21 [...] Td Garcia M.D.06/27/2021 7:40 PM Dictation Location: [place] [address] Transcribed By: [facility] 06/27/211939 Dictated By: Td Garcia DO 06/27/211939 Signed By: 06/27/211939 [facility] NR MR L-SPINE WO/W CONTRASTo n 07-26-2019 NR MR L-SPINE WO/W CONTRAST Patient Name: JORDI FRANCO STUDY: MR L-SPINE WO/W CONTRAST; 07/26/2019 1:19 pm INDICATION: Other spondylosis with radiculopathy, lumbar region. COMPARISON: None. ACCESSION NUMBER(S): [id number] ORDERING CLINICIAN: MARY MOLINA TECHNIQUE: The lumbar [...] changes as described The examination was interpreted [facility] Electronically signed by: PAULINE PADILLA MD [facility] NR MRI CERVICAL WOon 020 NR MRI CERVICAL WO Patient Name: JORDI FRANCO STUDY: MRI CERVICAL WO; 07/26/2019 1:19 pm INDICATION: Other spondylosis with radiculopathy, lumbar region. COMPARISON: None. ACCESSION NUMBER(S): [id number] ORDERING CLINICIAN: MARY MOLINA TECHNIQUE: Sagittal and [...] foraminal narrowing. THIS EXAMINATION WAS INTERPRETED [place] [facility] Electronically signed by: PAULINE PADILLA MD [facility] BASIC METABOLIC PANELon 07-08 Anion gap [Moles/Vol] 11 mmol/L Normal 10 - 20 [facility] Comment on above: Performed By: #### B MP #### [address] [address] Calcium [Mass/Vol] 9.5 mg/dL Normal 8.6 - 10.3 [facility] Comment on above: Performed By: #### B MP #### [address] [address] Chloride [Moles/Vol] 102 mmol/L Normal 98 - 107 [facility] Comment on above: Performed By: #### B MP #### [address] [address] Creatinine [Mass/Vol] 1.08 mg/dL Normal 0.50 - 1.30 [facility] Comment on above: Performed By: #### B MP #### [address] [address] GFR- AM. >60 Normal >60 [facility] Comment on above: Result Comment: CALC ULATIONS OF ESTIMATED GFR ARE PERFORMED USING THE MDRD STUDY EQUATION FOR THE IDMS-TRACEABLE CREATININE METHODS. CLIN CHEM 2007;53:766-72 Performed By: #### B MP #### [address] [place] [address] GFR-NON AM. >60 Normal >60 [facility] Comment on above: Performed By: #### B MP #### [address] [place] [address] Glucose [Mass/Vol] 122 mg/dL High 74 - 99 [facility] Comment on above: Performed By: #### B MP #### [address] [place] [address] HCO3 (Bld) [Moles/Vol] 31 mmol/L Normal 21 - 32 [facility] Comment on above: Performed By: #### B MP #### [address] [place] [address] Potassium [Moles/Vol] 4.6 mmol/L Normal 3.5 - 5.3 [facility] Comment on above: Performed By: #### B MP #### [address] [place] [address] Sodium [Moles/Vol] 139 mmol/L Normal 136 - 145 [facility] Comment on above: Performed By: #### B MP #### [address] [place] [address] Urea nitrogen [Mass/Vol] 19 mg/dL Normal 6 - 23 [facility] Comment on above: Performed By: #### B MP #### [address] [place] [address] HGB + HCTon 07-21-2019 Hematocrit (Bld) [Volume fraction] 45.4 % Normal 41.0 - 52.0 [facility] Comment on above: Performed By: #### H H #### [address] [place] [address] Hemoglobin (Bld) [Mass/Vol] 13.9 g/dL Normal 13.5 - 17.5 [facility] Comment on above: Performed By: #### H H #### [facility] [address] [place] [address] Vital Signs Date Time Vital Sign Value Performing Clinician Facility 11-04-2023 14:49-0400 Body height 176.53 cm [facility] 11-04-2023 14:49-0400 Body mass index (BMI) [Ratio] 28.8 kg/m2 [facility] 11-04-2023 14:49-0400 Body temperature 98.4 [degF] [facility] 11-04-2023 14:49-0400 Body weight 89.81 kg [facility] 11-04-2023 14:49-0400 Heart rate 62 /min [facility] 11-04-2023 14:49-0400 Respiratory rate 18 /min [facility] 11-04-2023 14:49-0400 SaO2% (BldA) [Mass fraction] 97 % [facility] 06-30-2023 13:35-0500 Body height 177.8 cm Clara Aranza Other [facility] Other 06-30-2023 13:35-0500 Body mass index (BMI) [Ratio] 28.75 kg/m2 Clara Aranza Other [facility] Other 06-30-2023 13:35-0500 Body temperature 97.5 [degF] Clara Aranza Other [facility] Other 06-30-2023 13:35-0500 Body weight 90.9 kg Clara Aranza Other [facility] Other 06-30-2023 13:35-0500 Diastolic blood pressure 74 mm[Hg] Clara Aranza Other [facility] Other 06-30-2023 13:35-0500 Respiratory rate 20 /min Clara Aranza Other [facility] Other 06-30-2023 13:35-0500 SaO2% (BldA) [Mass fraction] 97 % Clara Cobian Other [facility] Other 06-30-2023 13:35-0500 Systolic blood pressure 124 mm[Hg] Clara Aranza Other [facility] Other 05-03-2023 11:10-0500 Blood Pressure Location MP MICHELLE [facility] 05-03-2023 11:10-0500 Diastolic blood pressure 60 mm[Hg] MP MICHELLE [facility] 05-03-2023 11:10-0500 Heart rate 82 /min MP MICHELLE [facility] 05-03-2023 11:10-0500 Respiratory rate 16 /min MP MICHELLE [facility] 05-03-2023 11:10-0500 SaO2% (BldA) [Mass fraction] 94 % MP MICHELLE [facility] 05-03-2023 11:10-0500 Systolic blood pressure 130 mm[Hg] MP MICHELLE [facility] 04-22-2023 14:20-0500 Body height 177.8 cm Lisa Archibald Other [facility] Other 04-22-2023 14:20-0500 Body mass index (BMI) [Ratio] 28.98 kg/m2 Lisa Archibald Other [facility] Other 04-22-2023 14:20-0500 Body temperature 98.4 [degF] Lisa Archibald Other [facility] Other 04-22-2023 14:20-0500 Body weight 91.63 kg Lisa Archibald Other [facility] Other 04-22-2023 14:20-0500 Diastolic blood pressure 73 mm[Hg] Lisa Archibald Other [facility] Other 04-22-2023 14:20-0500 Respiratory rate 18 /min Lisa Archibald Other [facility] Other 04-22-2023 14:20-0500 SaO2% (BldA) [Mass fraction] 97 % Lisa Archibald Other [facility] Other 04-22-2023 14:20-0500 Systolic blood pressure 136 mm[Hg] Ilsa Archibald Other [facility] Other 04-11-2023 12:31-0500 Diastolic blood pressure 88 mm[Hg] [facility] 04-11-2023 12:31-0500 Heart rate 101 /min [facility] 04-11-2023 12:31-0500 Mean blood pressure 108 mm[Hg] [facility] 04-11-2023 12:31-0500 Respiratory rate 55 /min [facility] 04-11-2023 12:31-0500 SaO2% (BldA) [Mass fraction] 95 % [facility] 04-11-2023 12:31-0500 Systolic blood pressure 147 mm[Hg] [facility] 04-11-2023 12:15-0500 Hourly Rounding [facility] 04-11-2023 12:00-0500 Diastolic blood pressure 77 mm[Hg] [facility] 04-11-2023 12:00-0500 Heart rate 97 /min [facility] 04-11-2023 12:00-0500 Mean blood pressure 102 mm[Hg] [facility] 04-11-2023 12:00-0500 Respiratory rate 67 /min [facility] 04-11-2023 12:00-0500 SaO2% (BldA) [Mass fraction] 94 % [facility] 04-11-2023 12:00-0500 Systolic blood pressure 152 mm[Hg] [facility] 04-11-2023 11:00-0500 Diastolic blood pressure 86 mm[Hg] [facility] 04-11-2023 11:00-0500 Heart rate 93 /min [facility] 04-11-2023 11:00-0500 Mean blood pressure 107 mm[Hg] [facility] 04-11-2023 11:00-0500 Respiratory rate 13 /min [facility] 04-11-2023 11:00-0500 Systolic blood pressure 149 mm[Hg] [facility] 04-11-2023 10:15-0500 gluc 100 mg/dL [facility] 04-11-2023 10:15-0500 gluc [facility] 04-11-2023 09:46-0500 Body temperature 97.7 [degF] [facility] 04-11-2023 09:46-0500 Heart rate 104 /min [facility] 04-11-2023 09:46-0500 Respiratory rate 20 /min [facility] 02-16-2023 11:25-0400 Blood Pressure Location IVNONE GRANT [facility] 02-16-2023 11:25-0400 Diastolic blood pressure 76 mm[Hg] IVONNE CHANTEL [facility] 02-16-2023 11:25-0400 Heart rate 68 /min IVONNE CHANTEL [facility] 02-16-2023 11:25-0400 Respiratory rate 16 /min IVONNE CHANETL [facility] 02-16-2023 11:25-0400 Systolic blood pressure 134 mm[Hg] IVONNE CHANTEL [facility] 01-14-2023 13:10-0400 Body height 177.8 cm Barbara Warner SPA TECHNICIAN.BENJAMIN, DNP Work Phone: [facility] 01-14-2023 13:10-0400 Body weight 90.27 kg Barbara Amery SPA TECHNICIAN.LABORER [employer]LL[employer], DNP Work Phone: [facility] 01-14-2023 13:10-0400 Diastolic blood pressure 74 mm[Hg] Barbara Jaron SPA TECHNICIAN.BENJAMIN, DNP Work Phone: [facility] 01-14-2023 13:10-0400 Heart rate 95 /min Barbara Nixett SPA TECHNICIAN.LABORER SHELLF[employer]ESSING, DNP Work Phone: [facility] 01-14-2023 13:10-0400 Systolic blood pressure 120 mm[Hg] Barbara Jaron SPA TECHNICIAN.LABORER SHELLF[employer]ESSING, DNP Work Phone: [facility] 12-16-2022 13:28-0400 Body height 177.8 cm Mary Jo Olvera SPA TECHNICIAN.LABORER SHELLF[employer]ESSING Work Phone: [facility] 12-16-2022 13:28-0400 Body temperature 98.4 [degF] Mary Jo Olvera SPA TECHNICIAN.LABORER SHELLF[employer]ESSING Work Phone: [facility] 12-16-2022 13:28-0400 Body weight 87.82 kg Mary Jo Olvera SPA TECHNICIAN.LABORER SHELLF[employer]ESSING Work Phone: [facility] 12-16-2022 13:28-0400 Diastolic blood pressure 72 mm[Hg] Mary Jo Gordillofey SPA TECHNICIAN.LABORER SHELLF[employer] PROCESSING Work Phone: [facility] 12-16-2022 13:28-0400 Heart rate 76 /min Mary Jo Jernigany SPA TECHNICIAN.LABORER SHELLF[employer]ESSING Work Phone: [facility] 12-16-2022 13:28-0400 SaO2% (BldA) [Mass fraction] 97 % Mary Jo Gordillofey SPA TECHNICIAN.LABORER SHELLFISH PROCESSING Work Phone: [facility] 12-16-2022 13:28-0400 Systolic blood pressure 102 mm[Hg] Mary Jo Jernigany SPA TECHNICIAN.LABORER SHELLFISH PROCESSING Work Phone: [facility] 12-03-2022 10:04-0400 Body height 177.8 cm [facility] Work Phone: [facility] 12-03-2022 10:04-0400 Body temperature 99 [degF] [facility] Work Phone: [facility] 12-03-2022 10:04-0400 Body weight 91.63 kg [facility] Work Phone: [facility] 12-03-2022 10:04-0400 Diastolic blood pressure 71 mm[Hg] [facility] Work Phone: [facility] 12-03-2022 10:04-0400 Heart rate 69 /min [facility] Work Phone: [facility] 12-03-2022 10:04-0400 Respiratory rate 14 /min [facility] Work Phone: [facility] 12-03-2022 10:04-0400 SaO2% (BldA) [Mass fraction] 97 % [facility] Work Phone: [facility] 12-03-2022 10:04-0400 Systolic blood pressure 119 mm[Hg] [facility] Work Phone: [facility] 10-19-2022 15:15-0400 Diastolic blood pressure 60 mm[Hg] Savanna Zhang MD Work Phone: [facility] 10-19-2022 15:15-0400 Heart rate 60 /min Savanna Zhang MD Work Phone: [facility] 10-19-2022 15:15-0400 Respiratory rate 38 /min Savanna Zhang MD Work Phone: [facility] 10-19-2022 15:15-0400 SaO2% (BldA) [Mass fraction] 92 % Savanna Zhang MD Work Phone: [facility] 10-19-2022 15:15-0400 Systolic blood pressure 118 mm[Hg] Savanna Zhang MD Work Phone: [facility] 10-19-2022 12:15-0400 Body temperature 98.4 [degF] Savanna Zhang MD Work Phone: [facility] 10-05-2022 08:49-0400 Body height 177.8 cm Savanna Zhang MD Work Phone: [facility] 10-05-2022 08:49-0400 Body weight 93.08 kg Savanna Zhang MD Work Phone: [facility] 10-05-2022 08:49-0400 Diastolic blood pressure 62 mm[Hg] Savanna Zhang MD Work Phone: [facility] 10-05-2022 08:49-0400 Heart rate 62 /min Savanna Zhang MD Work Phone: [facility] 10-05-2022 08:49-0400 Systolic blood pressure 130 mm[Hg] Savanna Zhang MD Work Phone: [facility] 07-20-2022 14:01-0500 Blood Pressure Location ISABELA TALBERT [facility] 07-20-2022 14:01-0500 Diastolic blood pressure 72 mm[Hg] ISABELA SIDELL [facility] 07-20-2022 14:01-0500 Heart rate 56 /min ISABELA SIDELL [facility] 07-20-2022 14:01-0500 SaO2% (BldA) [Mass fraction] 94 % ISABELA SIDELL [facility] 07-20-2022 14:01-0500 Systolic blood pressure 140 mm[Hg] ISABELA SIDELL [facility] 04-22-2022 13:10-0500 Blood Pressure Location Janel Klonk [facility] 04-22-2022 13:10-0500 Heart rate 134 /min Janel Klonk [facility] 04-22-2022 13:10-0500 Respiratory rate 74 /min Janel Klonk [facility] 04-22-2022 13:10-0500 SaO2% (BldA) [Mass fraction] 96 % Janel Klonk [facility] 04-02-2022 07:57-0400 Body height 175.3 cm Savanna Zhang MD Work Phone: [facility] 04-02-2022 07:57-0400 Body weight 87.09 kg Savanna Zhang MD Work Phone: [facility] 04-02-2022 07:57-0400 Diastolic blood pressure 68 mm[Hg] Savanna Zhang MD Work Phone: [facility] 04-02-2022 07:57-0400 Heart rate 74 /min Savanna Zhang MD Work Phone: [facility] 04-02-2022 07:57-0400 Systolic blood pressure 136 mm[Hg] Savanna Zhang MD Work Phone: [facility] Encounters Encounter Date Encounter Type Care Provider Facility Start: 05-10-2024 End: 05-10-2024 ambulatory CHAITANYA WATKINS Facility:[facility] Start: 05-10-2024 End: 05-10-2024 Patient encounter procedure Chaitanya Watkins DPM Work Phone: Orthopaedics Comment on above: Onychomycosis (Prima ry Dx); Pain in toes of both feet Start: 05-09-2024 ambulatory Raul DUMONT Facilit y:[facility] Start: 03-09-2024 End: 03-10-2024 Refill Floyd Spaulding MD Work Phone: Cardiology Comment on above: Refill Request Start: 02-22-2024 End: 02-22-2024 ambulatory IVONNE GRANT Facility:[facility] Start: 02-22-2024 End: 02-22-2024 Patient encounter procedure IVONNE GRANT [facility] Start: 02-17-2024 End: 02-17-2024 Bamboo flowsheet Rebekah A Felter SPA TECHNICIAN-LABORER SHELLFISH PROCESSING Work Phone: [facility] Start: 02-17-2024 End: 02-17-2024 Bamboo flowsheet Rebekah A Felter SPA TECHNICIAN-LABORER SHELLFISH PROCESSING Work Phone: [facility] Start: 02-17-2024 End: 02-17-2024 Office outpatient visit 15 minutes Rebekah A Felter SPA TECHNICIAN-LABORER SHELLF[employer] PROCESSING Work Phone: [facility] Comment on above: Neoplasm of skin Start: 02-17-2024 End: 02-17-2024 ambulatory REBEKAH A FELTER Not Available Start: 02-08-2024 End: 02-08-2024 ambulatory CHAITANYA WATKINS Facility:[facility] Start: 02-08-2024 End: 02-08-2024 Patient encounter procedure Chaitanya Watkins DPM Work Phone: Orthopaedics Comment on above: Onychomycosis (Prima ry Dx); Pain in toes of both feet Start: 12-27-2023 End: 12-27-2023 ambulatory PARADISE Lentz HAYDEN Not Available Start: 12-06-2023 End: 12-07-2023 ambulatory RAUL DUMONT [facility] Start: 11-09-2023 Telephone encounter Floyd martin MD Work Phone: Cardiology Comment on above: Medication Problem; Patient Question Start: 11-04-2023 End: 11-04-2023 ambulatory [facility] Work Phone: Start: 11-04-2023 End: 11-04-2023 Patient encounter procedure [facility] Work Phone: Start: 11-03-2023 End: 11-03-2023 ambulatory CHAITANYA WATKINS Facility:[facility] Start: 11-03-2023 End: 11-03-2023 Patient encounter [...] Available Start: 08-05-2023 End: 08-05-2023 ambulatory CHAITANYA WATKINS Facility:[facility] Start: 08-05-2023 End: 08-05-2023 Patient encounter procedure Chaitanya Watkins DPM Work Phone: Orthopaedics Comment on above: Onychomycosis (Prima ry Dx); Pain in toes of both feet Start: 07-08-2023 Refill Barbara Galeas tt SPA TECHNICIAN.LABORER SHELLFISH PROCESSING, DNP Work Phone: Cardiology Comment on above: Refill Request Start: 07-07-2023 Telephone encounter Barbara Warner APRN.RAMÓN ALEXANDER Work Phone: Cardiology Comment on above: Medication Question Start: 06-30-2023 End: 06-30-2023 ambulatory Clara Cobian Other [facility] [employer] Other Start: 06-30-2023 Office outpatient vi sit 10 minutes Clara Cobian [facility] Start: 06-24-2023 End: 06-24-2023 ambulatory PARADISE BAILEYDeng Not Available Start: 06-04-2023 End: 06-04-2023 ambulatory FLOYD SPAULDING M.D. Facility:[facility] Start: 05-12-2023 ambulatory Cassie Bhatti RT(R) Rad iolcolin Comment on above: Radiology XR Start: 05-12-2023 End: 05-12-2023 Patient encounter procedure Cassie Bhatti RT(R) NEHAL JAMES Comment on above: Pain in toes of both feet (Primary Dx) Equinus contracture of ankle (Primary Dx); Metatarsalgia of both feet Start: 05-12-2023 End: 05-12-2023 Subsequent hospital visit by physician Sammie Zaavla 1 Work Phone: Radiology Comment on above: Pain [R52] Start: 05-05-2023 End: 05-05-2023 Patient encounter procedure Chaitanya Watkins DPM Work Phone: Orthopaedics Comment on above: Onychomycosis (Prima ry Dx); Pain in toes of both feet Start: 05-03-2023 End: 05-03-2023 ambulatory MP MARTINEZ Facility:[facility] Start: 05-03-2023 End: 05-03-2023 Patient encounter procedure MP MARTINEZ [facility] [place] Start: 04-22-2023 End: 04-22-2023 ambulatory Lisa Archibald Other [employer] Other Start: 04-22-2023 Office outpatient vi sit 15 minutes Lisa CHERRY [facility] Start: 04-11-2023 End: 04-11-2023 Emergency department patient visit [facility] Start: 02-16-2023 End: 02-16-2023 Patient encounter procedure IVONNE GRANT [facility] Start: 01-27-2023 End: 01-27-2023 Patient encounter procedure Chaitanya Watkins DPM Work Phone: Orthopaedics Comment on above: Onychomycosis (Prima ry Dx); Pain in toes of both feet Start: 01-25-2023 Ruma Zhang MD Work Phone: Cardiology Start: 01-14-2023 End: 01-14-2023 Patient encounter procedure Barbara Warner APRN.LABORER [employer], DNP Work Phone: [facility] [address] Comment on above: Paroxysmal atrial fi brillation (HCC) (Primary Dx); Nonrheumatic mitral valve regurgitation; Nonrheumatic aortic valve stenosis; Essential hypertension; S/P MVR (mitral valve replacement) Start: 01-14-2023 End: 01-14-2023 ambulatory BARBARA WARNER Facility:[facility] Start: 01-06-2023 ambulatory Zari Cobb RN [facility] Start: 12-16-2022 End: 12-16-2022 Patient encounter procedure Mary Jo Olvera SPA TECHNICIAN.LABORER [employer] Work Phone: Cardiothoracic Comment on above: S/P aortic valve rep lacement (Primary Dx); S/P mitral valve repair; S/P patent foramen ovale closure; Paroxysmal atrial fibrillation (HCC); Essential hypertension Start: 12-16-2022 End: 12-16-2022 Subsequent hospital visit by physician Brain Nieves MD Work Phone: Radiology Comment on above: Surgery follow-up [Z 09] Start: 12-11-2022 Telephone encounter Brain doss MD Work Phone: Cardiology Comment on above: Patient Question Start: 12-10-2022 Telephone encounter Mary Carmen Meier RN NOC Comment on above: Follow Up Phone Call ([facility] 1st attempt/) Start: 12-04-2022 End: 12-06-2022 Admission to same day surgery center Chaitanya Watkins DPM Work Phone: [facility] Start: 12-03-2022 End: 12-03-2022 Admission to same day surgery center Brain Nieves MD Work Phone: Cardiothoracic Start: 12-03-2022 End: 12-03-2022 Patient encounter procedure Brain Nieves MD Work Phone: Cardiothoracic Comment on above: Encounter for educat ion (Primary Dx); Pre-op exam Encounter for preope rative anesthesiology assessment for cardiac surgery (Primary Dx); Atherosclerosis of aorta (HCC); Paroxysmal atrial fibrillation (HCC) Nonrheumatic aortic valve stenosis (Primary Dx) Start: 12-03-2022 End: 12-03-2022 Preprocedural examination done Brain Nieves MD Work Phone: Cardiothoracic Start: 12-01-2022 Telephone encounter Hay jones DO Work Phone: Cardiology Comment on above: Education Of Patient /family Start: 12-01-2022 End: 12-01-[address] (I-Stat) Radiology Start: 12-01-2022 End: 12-01-2022 Subsequent hospital visit by physician Ct 2 Main Qb (I-Stat) Radiology Comment on above: Encounter for prepro cedural cardiovascular examination [Z01.810] Start: 11-23-2022 Telephone encounter Maura ray RN Work Phone: Case Management Comment on above: Physician Assistant Surgery - O ther (Care Continuum Advisor Assessment [...] by physician Savanna Zhang MD Work Phone: [facility] Comment on above: Mitral valve insuffi ciency, unspecified etiology [I34.0] Start: 10-05-2022 Telephone encounter Savanna Zhang MD Work Phone: Cardiology Comment [...] 07-20-2022 End: 07-20-2022 Patient encounter procedure ISABELA TALBERT [facility] Start: 04-22-2022 End: 04-22-2022 Patient encounter procedure Janel Lou [facility] Start: 04-22-2022 End: 04-22-2022 Well adult monitoring check done Janel Lou [facility] Start: 04-21-2022 End: 04-21-2022 Patient encounter procedure [...] Start: 12-30-2021 End: 12-30-2021 Patient encounter procedure Raul Julia Work Phone: [facility] [address] Start: 12-25-2021 End: 12-26-[address] OSMEL GARCIA Facility:[facility] Start: 10-06-2021 Refill Floyd leyva MD Work Phone: Cardiology Comment on above: Refill Request Procedures Date Procedure Procedure Detail Performing Clinician Start: 05-12-2023 Radex foot complete minimum 3 views Chaitanya Watkins DPM Work Phone: Start: 01-14-2023 Ecg routine ecg w/le ast 12 lds trcg only w/o i&r [facility] Provider Start: 12-16-2022 Radiologic exam ches t 2 views Brain Nieves MD Work Phone: Start: 12-03-2022 Iadna s aureus ampli fied probe tq Brain Nieves MD Work Phone: Start: 12-01-2022 Ct angiography chest w/contrast/noncontrast Brain Nieves MD Work Phone: Start: 12-01-2022 Creatinine [Mass/vol ume] in Serum or Plasma [facility] Provider Start: 11-05-2022 Open heart surgery CLAUDIA BENJAMIN GRANT Start: 10-19-2022 Echo transthorc r-t 2d w/wo m-mode rec f-up/lmtd Savanna Zhang MD Work Phone: Start: 10-19-2022 LVEF ECHO TRANSESOPHAGEAL Savanna Zhang MD Work Phone: Start: 12-30-2021 MRI of head DO Raul Duomnt Work Phone: Start: 12-25-[address] DEANNA DUMONT Comment on above: Performed By: #### P SAD #### [facility] [address] [place] [address] Dr. Bryn Santo Start: 07-13-2018 Cystoscopy IVONNE Toshia ANN Ankle, left Janel Lou Back Surgery Janel Lou Colonoscopy Janel Lou Extraction of cataract Ashherminio Lou Prostatectomy Janel Breauxonkeny Plan of Treatment Date Care Activity Detail Author Start: 06-29-2033 Urine microalbumin profile DTaP,Tdap,Td Vaccine (2 - Td or Tdap) [facility] Start: 12-16-2025 DIABETES SCREEN DIABETES SCREEN [facility] Start: 12-16-2025 Diabetes Screening Diabetes Screening [facility] Start: 12-08-2025 DIABETES SCREEN DIABETES SCREEN [facility] Start: 12-01-2025 DIABETES SCREEN DIABETES SCREEN [facility] Start: 04-15-2025 DIABETES SCREEN DIABETES SCREEN [facility] Start: 08-10-2024 End: 08-10-2024 Patient encounter procedure 08/10/2024 9:45 AM EST Office Visit Orthopaedics [address] [place] [address] Chait[place], DPM [address] [place], [place] [id number] 3 month nail care Orthopaedics Comment on above: 3 month nail care Start: 06-22-2024 End: 06-22-2024 Patient encounter procedure 06/22/2024 2:15 PM EST Office Visit [facility] [address] [place] [address] Paradise Tyler MD [address] [place] [address] [facility] Start: 05-26-2024 End: 05-26-2024 Patient encounter procedure 05/26/2024 10:30 AM EST Office Visit Cardiology [address] [facility] [address] [place], [place] [id number] Floyd Spaulding MD [address] [facility] [place], [place] [id number] 1 Year Follow uP Of Afib Cardiology Comment on above: 1 Year Follow uP Of Afib Start: 05-10-2024 End: 05-10-2024 Patient encounter procedure 05/10/2024 8:45 AM EST Office Visit Orthopaedics [address] [place] [address] [place] [address] [place] [address] 3 month nail care Orthopaedics Comment on above: 3 month nail care Start: 03-16-2024 End: 03-16-2024 Patient encounter procedure 03/16/2024 9:30 AM EDT Office Visit [facility] [address] [place] [address] Rebekah Marquez, SPA TECHNICIAN-LABORER [employer] [address] [place] [address] [facility] Start: 02-17-2024 End: 02-17-2024 Patient encounter procedure 02/17/2024 10:20 AM EDT Office Visit [facility] [address] [place] [address] Rebekah Marquez, SPA TECHNICIAN-LABORER [employer] [address] [place] [address] Arrived [facility] Comment on above: Arrived Start: 02-08-2024 End: 02-08-2024 Patient encounter procedure 02/08/2024 11:00 AM EDT Office Visit Orthopaedics [address] [place] [address] Chait[place], DPM [address] [place] [address] 3 month nail care Orthopaedics Comment on above: 3 month nail care Start: 02-06-2024 Covid-19 Vaccine () Covid-19 Vaccine () [facility] Start: 02-06-2024 Covid-19 Vaccine () Covid-19 Vaccine () [facility] Start: 02-06-2024 Influenza vaccination [facility] Start: 01-14-2024 DIABETES SCREEN DIABETES SCREEN [facility] Start: 11-03-2023 End: 11-03-2023 Patient encounter procedure 11/03/2023 8:45 AM EDT Office Visit Orthopaedics [address] [place] [address] [place]ait[place] [address] [place] [address] 3 month nail care Orthopaedics Comment on above: 3 month nail care Start: 06-07-2023 Advance Directive Discussion Advance Directive Discussion [facility] Start: 06-07-2023 Behavioral Health Screening Behavioral Health Screening [facility] Start: 06-07-2023 Depression Assessment Depression Assessment [facility] Start: 02-05-2023 Covid-19 Vaccine () Covid-19 Vaccine () [facility] Start: 02-05-2023 Influenza vaccination [facility] Start: 10-01-2022 End: 04-02-2023 Echocardiography ECHO Cardiology Routine Nonrheumatic aortic valve stenosis Expected: 10/01/2022, Expires: 04/02/2023 [facility] Work Phone: Comment on above: Expected: 10/01/2022, Expires: Start: 06-07-2022 ADVANCE DIRECTIVE DISCUSSION ADVANCE DIRECTIVE DISCUSSION [facility] Start: 06-07-2022 DEPRESSION ASSESSMENT DEPRESSION ASSESSMENT [facility] Start: 02-05-2022 Influenza vaccination INFLUENZA (#1) [facility] Start: 06-07-2021 ADVANCE DIRECTIVE DISCUSSION ADVANCE DIRECTIVE DISCUSSION [facility] Start: 06-07-2021 DEPRESSION ASSESSMENT DEPRESSION ASSESSMENT [facility] Start: 04-01-2021 COVID-19 VACCINE (2 - Pfizer series) COVID-19 VACCINE (2 - Pfizer series) [facility] Start: 02-25-2021 COVID-19 VACCINE (2 - Pfizer 3-dose series) COVID-19 VACCINE (2 - Pfizer 3-dose series) [facility] Start: 02-25-2021 COVID-19 VACCINE (2 - Pfizer series) COVID-19 VACCINE (2 - Pfizer series) [facility] Start: 2014 RSV Vaccine (1 - 1-dose 75+ series) RSV Vaccine (1 - 1-dose 75+ series) [facility] Start: 2004 PNEUMOVAX AGE 65 AND OVER WITH 5YR LOOKBACK (#1) PNEUMOVAX AGE 65 AND OVER WITH 5YR LOOKBACK (#1) [facility] Start: 1999 RSV Vaccine (1 - 1-dose 60+ series) RSV Vaccine (1 - 1-dose 60+ series) [facility] Start: 1989 SHINGRIX VACCINE (1 of 2) SHINGRIX VACCINE (1 of 2) [facility] Start: 1958 Urine microalbumin profile [facility] Start: 1957 Depression Screening Depression Screening [facility] Start: 1945 PNEUMOCOCCAL: 65+ (1 - PCV) PNEUMOCOCCAL: 65+ (1 - PCV) [facility] End: 10-06-2023 ECG COMPLETE ECG COMPLETE ECG Routine Mitral regurgitation and aortic stenosis 1 Occurrences starting 10/05/2022 until 10/06/2023 [facility] Work Phone: Comment on above: 1 Occurrences starting 10/05/2022 until 10/06/2023 End: 01-15-2024 ECG COMPLETE ECG COMPLETE ECG Routine Paroxysmal atrial fibrillation (HCC) 1 Occurrences starting 01/14/2023 until 01/15/2024 [facility] Work Phone: Comment on above: 1 Occurrences starting 01/14/2023 until 01/15/2024 Ecg routine ecg w/le ast 12 lds w/i&r EKG WITH INTERPRETATION Cardiology Routine Paroxysmal atrial fibrillation (HCC) Ordered: 04/02/2022 [facility] Work Phone: Comment on above: Ordered: 04/02/2022 End: 10-06-2023 ECHO TRANSESOPHAGEAL ECHO TRANSESOPHAGEAL Cardiology Routine Mitral regurgitation and aortic stenosis 1 Occurrences starting 10/05/2022 until 10/06/2023 [facility] Work Phone: Comment on above: 1 Occurrences starting 10/05/2022 until 10/06/2023 Electrocardiogram EKG BIC Routin e 01/14/2023 1:15 PM EDT [facility] Immunizations Immunization Date Immunization Notes Care Provider Joellen [facility] 04-23-2022 influenza, injectabl e, quadrivalent, preservative free ISABELA TALBERT [facility] 04-23-2022 influenza virus vaccine, unspecified formulation Chaitanya Watkins DPM Work Phone: [facility] 02-04-2021 influenza virus vaccine, unspecified formulation Janel Lou [facility] Comment on above: Result Comment: [facility] 02-04-2021 SARS-CoV-2 (COVID-19 ) mRNA BNT-162b2 vax Janel Klonk [facility] Comment on above: [facility] SARS-CoV-2 mRNA (tozinameran 5y-11y) vaccine Janel Klonk [facility] 03-12-2020 influenza, injectabl e, quadrivalent, preservative free Janel Klonk [facility] 03-15-2019 influenza virus vaccine, unspecified formulation Janel Klonk [facility] 06-03-2018 zoster vaccine recombinant Janel Klonk [facility] 03-04-2018 influenza virus vaccine, unspecified formulation Janel Klonk [facility] 03-04-2018 zoster vaccine recombinant Janel Klonk [facility] 03-07-2015 zoster vaccine recombinant Janel Klonk [facility] 06-07-2014 pneumococcal conjuga te vaccine, 13 valent Janel Klonk [facility] 06-21-2006 pneumococcal polysaccharide vaccine, 23 valent Janel Klonk [facility] 04-14-2002 pneumococcal polysaccharide vaccine, 23 valent Janel Klonk [facility] Payers Date Payer Category Payer Unknown [employer] DICARE SUPPLEMENT [id number] 2016-Present [phone] [address] [place] [address] Indemnity [id number] 2016 Unknown [id number] 2004 Medicare MEDICARE MEDICAR E A AND B [id number] 2004-Present [phone] [address] [address] [place] [address] Medicare [id number] 2004 Medicare [id number] 1959 Medicare [id number] 1959 Unknown [id number] 1939 Unknown [id number] 3 1939 Unknown [id number] 3 1939 Unknown [id number] 2 1939 Unknown [id number] 59 1939 Unknown [id number] 59 1939 Unknown [id number] 59 1939 Unknown [id number] 59 1939 Unknown [id number] 7 1939 Unknown [id number] 7 1939 Unknown [id number] 7 1939 Unknown [id number] 7 Self-pay Self Pay [id number] Social History Date Type Detail Facility Start: 06-27-2021 End: 02-22-2024 Tobacco smoking status DEIS Never smoked tobacco [facility] Start: 07-08-2020 End: 06-04-2023 Alcohol intake Current non-drinker of alcohol (finding) [facility] Start: 1940 Sex Assigned At Male [facility] Start: 06-15-2014 End: 12-22-2022 Tobacco use and exposure Smokeless tobacco non-user [facility] Start: 02-24-2022 End: 03-06-2022 Exposure to SARS-CoV-2 (event) Unable to assess [facility] Start: 03-23-2022 End: 04-21-2022 Exposure to SARS-CoV-2 (event) Not sure [facility] Tobacco smoking status Never [facility] [place] Start: 12-16-2022 End: 02-17-2024 Sex Assigned At Male [facility] Start: 12-09-2022 History SDOH Financial 5 [facility] Start: 12-09-2022 History SDOH Food Worry 1 [facility] Start: 12-09-2022 History SDOH Transpo rt Med 2 [facility] Start: 12-16-2022 End: 02-17-2024 History of Social function [facility] (I/We) worried wheth er (my/our) food would run out before (I/we) got money to buy more. Never true [facility] In the past 12 month s, was there a time when you were not able to pay the mortgage or rent on time? No [facility] Start: 06-18-2020 Gender identity Identifies as male gender (finding) [facility] Start: 06-18-2020 Sexual orientation Choose not to dis close [facility] Start: 12-27-2023 End: 02-17-2024 Alcoholic beverage intake Lifetime non-drinker (finding) [facility] Start: 1940 Sex assigned at Not on file [facility] Medical Equipment Procedure Code Equipment Code Equipment Original Text Equipment Identifier Dates Subtryner Negro Castro lant 9mm - [id number] Start: 02-05-2010 Band Cline Ancor e 35mm 35mm Annuloplasty Flexible [place] Chordal Guide - [id number] Start: 12-04-2022 Patch Thk.5mm Johnnie vine Pericardial 29m01xx Cardiovascular Resilience Durable - [id number] Start: 12-04-2022 Valve Joe-Mariano Perimount Magna Ease 25mm Low Profile Pericardial - [id number] Start: 12-04-2022 Functional Status Date Assessment Result Facility 02-22-2024 Functional Status N/A [facility] 05-03-2023 Functional Status N/A [facility] 04-11-2023 Functional Status N/A [facility] 02-16-2023 Functional Status N/A [facility] 07-20-2022 Functional Status N/A [facility] 04-22-2022 Functional Status N/A [facility] Clinical Notes 10-06-2021 to 05-10-2024 Chaitanya Watkins DPM - 05/10/2024 9:31 AM ESTTelephone Encounter - Kim Garcia MA - 03/09/2024 2:07 PM EDTTelephone Encounter - Kim Garcia MA - 03/09/2024 2:07 PM EDT Note Date & Type Note Facility 05-10-2024 Note HNO ID: [id number] Author: CHAITANYA WATKINS DPM Service: ? Author Type: Physician Type: Progress Notes Filed: 05/10/2024 09:32 Note Text: SUBJECTIVE: The patient presents today with his [...] from my notes of previous visit of 02/08/24 was copied and pasted, documentation has been reviewed and edited as necessary and is current for today. Chaitanya Watkins D.P.M. [facility] 05-10-2024 History of Present illness Narrative SUBJECTIVE: The patient presents today [...] from my notes of previous visit of 02/08/24 was copied and pasted, documentation has been reviewed and edited as necessary and is current for today. Chaitanya Watkins D.P.M. documented in this encounter [facility] 03-09-2024 Telephone encounter Note Pharmacy electronic RX request to request a refill on the medication(s) below: Requested Prescriptions Pending Prescriptions Disp Refills rivaroxaban (XARELTO) 20 mg tablet 90 tablet 3 Sig: Take 1 tablet by mouth once daily. Pickup RX Physician's Name: Dr. Spaulding Last seen in office: 06/04/2023 If last appointment/recall greater than one year or no follow up scheduled, sent to schedulers: No Follow up scheduled for: 05/26/2024 Kim Garcia MA 03/09/2024 [facility] 03-09-2024 Miscellaneous Notes Pharmacy electronic RX request to request a refill on the medication(s) below: Requested Prescriptions Pending Prescriptions Disp Refills rivaroxaban (XARELTO) 20 mg tablet 90 tablet 3 Sig: Take 1 tablet by mouth once daily. Pickup RX Physician's Name: Dr. Spaulding Last seen in office: 06/04/2023 If last appointment/recall greater than one year or no follow up scheduled, sent to schedulers: No Follow up scheduled for: 05/26/2024 Kim Garcia MA 03/09/2024 Prescription Refill Information The patient has been identified by name and date of : Yes Caregiver verified no other encounters exist for this prescription request: Yes Caregiver confirmed with patient/requestor that no other refills are due, in the near future, with this provider at this time: Yes The last office visit in the department: 06/04/2023 Does the patient have a future office visit with this provider/department: 05/26/2024 Requested Prescriptions Pending Prescriptions Disp Refills rivaroxaban (XARELTO) 20 mg tablet 90 tablet 3 Sig: Take 1 tablet by mouth once daily. Smooth Gaspar March 09, 2024 1:58 PM documented in this encounter [facility] 03-09-2024 Telephone encounter Note Prescription Refill Information The patient has been identified by name and date of : Yes Caregiver verified no other encounters exist for this prescription request: Yes Caregiver confirmed with patient/requestor that no other refills are due, in the near future, with this provider at this time: Yes The last office visit in the department: 06/04/2023 Does the patient have a future office visit with this provider/department: 05/26/2024 Requested Prescriptions Pending Prescriptions Disp Refills rivaroxaban (XARELTO) 20 mg tablet 90 tablet 3 Sig: Take 1 tablet by mouth once daily. Smooth Gaspar March 09, 2024 1:58 PM [facility] 02-23-2024 Note Patient Education Urology Benign Prostatic Hyperplasia Benign [...] Follow these instructions at home: ? Take ttbj-jxf-sahichn and prescription medicines only as told by [...] better with treatment. ? You develop side effec (more content not included)... [facility] 02-17-2024 History of Present illness Narrative Images from the original note were not included. Lesions: Location: right anterior neck Duration: 2 weeks Quality: painful to the touch Modifying factors: aggravated by picking Associated symptoms: red Treatments: none Established patient of Paradise Tyler MD All pertinent medical history, medications, and allergies were reviewed. General Exam: alert , oriented to person, place, and time , normal affect, well appearing Accompanied by son A focused exam completed based on patient reported problems, see below: 1. Neoplasm of skin Right Anterior Neck Inflamed erythematous papules Favor inflamed SK vs PN. Instructed patient not to touch effected area and keep covered with sterile bandage. Follow up in 1 month for possible biopsy. Next Visit: 1 month, follow up documented in this encounter [facility] 02-08-2024 Note HNO ID: [id number] Author: CHAITANYA WATKINS DPM Service: ? Author Type: Physician Type: Progress Notes Filed: 02/08/2024 11:21 Note Text: SUBJECTIVE: The patient presents today with his [...] from my notes of previous visit of 11/03/23 was copied and pasted, documentation has been reviewed and edited as necessary and is current for today. Chaitanya Watkins D.P.M. [facility] 02-08-2024 History of Present illness Narrative SUBJECTIVE: The patient presents today [...] from my notes of previous visit of 11/03/23 was copied and pasted, documentation has been reviewed and edited as necessary and is current for today. Chaitanya Watkins D.P.M. documented in this encounter [facility] 11-09-2023 Telephone encounter Note Tried to reach patient by phone. Left message to return call to office Clara Hernandez RN [facility] 11-09-2023 Miscellaneous Notes Tried to reach patient by phone. Left message to return call to office Clara Hernandez RN November 09, 2023 [id number] Patient Name: Jordi Franco Contact Information: [phone] (home) [phone] (cell) Reason For Call: Medication Issue/Question: Xerelto Physician:Floyd Spaulding M.D. Additional Comments: Pt has parkinson's and is falling a lot. Please revisit Rx dosage roberta of falls. Please advise. Is it ok to leave detailed message on voice mail : Yes Requested Prescriptions No prescriptions requested or ordered in this encounter Radha Love documented in this encounter [facility] 11-09-2023 Telephone encounter Note November 09, 2023 [id number] Patient Name: Jordi Franco Contact Information: [phone] (home) [phone] (cell) Reason For Call: Medication Issue/Question: Xerelto Physician:Floyd Spaulding M.D. Additional Comments: Pt has parkinson's and is falling a lot. Please revisit Rx dosage roberta of falls. Please advise. Is it ok to leave detailed message on voice mail : Yes Requested Prescriptions No prescriptions requested or ordered in this encounter Radha Love [facility] 11-03-2023 Note HNO ID: [id number] Author: CHAITANYA WATKINS DPM Service: ? Author Type: Physician Type: Progress Notes Filed: 11/03/2023 08:44 Note Text: SUBJECTIVE: The patient presents today with his [...] is current for today. Chaitanya Watkins D.P.M. [facility] 11-03-2023 History of Present illness Narrative SUBJECTIVE: The patient presents today [...] Chaitanya Watkins D.P.M. documented in this encounter [facility] 10-19-2023 Telephone encounter Note Phoned patient and left detailed message that he can call the Lab. [facility] and gave number to call to order a duplicate pair of orthotics at cost. Natty hsieh MA [facility] 10-19-2023 Miscellaneous Notes Phoned patient and left detailed message that [...] a prescription for foam inserts for Pt. [facility] office can call Pt if a prescription is sent. documented in this encounter [facility] 10-19-2023 Telephone encounter Note -Pt's daughter (Sabiha) calling in to [...] may be beneficial for Pt as well. -[place] is asking for a prescription for foam inserts for Pt. [facility] office can call Pt if a prescription is sent. [facility] 08-05-2023 Note HNO ID: [id number] Author: CHAITANYA WATKINS DPM Service: ? Author Type: Physician Type: Progress Notes Filed: 08/05/2023 10:12 Note Text: SUBJECTIVE: The patient presents today with his [...] is current for today. Chaitanya Watkins D.P.M. [facility] 08-05-2023 History of Present illness Narrative SUBJECTIVE: The patient presents today [...] Chaitanya Watkins D.P.M. documented in this encounter [facility] 07-08-2023 Miscellaneous Notes Pended new prescription. Caro Montalvo RN Patient called states he takes 25 mg Metoprolol once daily. Received fax from [facility] pharmacy for patient's metoprolol. Fax shows different dose from medication list. Spoke with patient who is currently not home. He will have his check the bottle and get back to us. Will need new prescription for metoprolol (see notes on 01/22/2023 had elevated heart rate in the 90's - in the 70's afterwards). Caro Montalvo RN documented in this encounter [facility] 06-30-2023 Evaluation note Encounter Date Diagnosis Assessment [...] the ER for worsening symptoms or concerns [facility] 12-29-2023 NoteHNO ID: [id number] Author: Floyd Spaulding MD Service: ? Author Type: Physician Type: Progress Notes Filed: 06/04/2023 10:50 AM Note Text: [facility] [place] [facility] Department of Cardiovascular Medicine OUTPATIENT VISIT DATE June 04, 2023 OUTPATIENT VISIT TYPE Established PCP: Raul Dumont DO IMPRESSION: Mr. Franco is a 82 year old male status post PVI with no evidence of recurrence. He feels very well. ASSESSMENT/PLAN: I made no changes to his medications. I will see him again in 1 year. HISTORY OF PRESENT ILLNESS: Mr. Franco is a 82 year old male with paroxysmal atrial fibrillation. He originally had high density atrial ectopy and short atrial bursts subject to ablation some years ago. He had increasingly frequent episodes of true atrial fibrillation with failure of flecainide therapy. He underwent PVI 04/24/2013. He has a history of aortic stenosis, and has undergone aortic valve replacement with mitral valve repair at the same time. He feels very well, and is walking regularly. He has had no significant changes to his health. His exertion is limited primarily by lower extremity arthritis. 06/19/2018: Event monitor. Occasional short runs of ventricular tachycardia, longest 10 beats. Otherwise no major significant arrhythmias. 08/05/2018: Echocardiogram. LVEF 64%. Moderate aortic stenosis with aortic valve area 1.12 cm?. Dimensionless valve index 0.36. 08/05/2018: Nuclear stress test. LVEF 73%. Low risk scan. 12/04/2022: Aortic valve replacement, mitral valve repair. He denies chest pain, shortness of breath, orthopnea, cough, edema, palpitations, PND, lightheadedness or syncope. HISTORY: PAST MEDICAL HISTORY Diagnosis Date Ankle instability left Aortic stenosis Asthma exercise Atrial fibrillation (HCC) BPH (benign prostatic hyperplasia) Bronchitis Cancer (HCC) basal cell Cardiac insufficiency following cardiac surgery 12/04/2022 Cardiomegaly 09/22/2012 borderline Dyslipidemia WAMPANOAG (hard of hearing) Hypertension Mitral regurgitation Pinched nerve in neck Spinal stenosis Stroke (HCC) 06/07/2007 TIA (transient ischemic attack) 06/07/2007 Verruca PAST SURGICAL HISTORY Procedure Laterality Date ATRIAL FIBRILLATION/FLUTTER ABLATION 2001,2003, 2012 - Radiofrequency ablation for atrial fibrillation BACK SURGERY HX Disc Surgery FOOT/TOES SURGERY PROC UNLISTED 02/05/2010 Performed by CHAITANYA WATKINS at [facility] [place] GASTROCNEMIUS RECESSION 02/05/2010 Performed by CHAITANYA WATKINS at [facility] [place] PAST SURGICAL HISTORY OF 2005 [...] of Onset Ischemic Heart Disease Father 52 ID other (cancer, lung) Father 56 yrs Asthma Sister Asthma Grandchild No Family History Other colon cancer No Family History Other colon polyps other (heart disease) Brother open heart surgery ALLERGIES INCLUDE: ALLERGIES Allergen Reactions Grass Pollen Unknown Nasonex [Mometasone] Other: See Comments Made him feel very hot and very jittery and shakey. Prednisone Mental Status Change Sulfa (Sulfonamide * Unknown MEDICATIONS INCLUDE: metoprolol succinate ER (TOPROL XL) 25 mg 24 hr tablet Take 2 tablets by mouth once daily. docusate sodium (COLACE) 100 mg capsule Take 1 capsule by mouth twice daily as needed for constipation. acetaminophen (TYLENOL) 325 mg tablet Take 2 tablets by mouth every 4 hours as needed (post-op pain). atorvastatin (LIPITOR) 10 mg tablet TAKE 1 [...] MULTIVITAMIN ORAL Take by mouth once daily. polyethylene glycol 3350 (MIRALAX) 17 gram/dose powder Take 17 g by mouth once daily. Dissolve dose in 4 - 8 ounces of liquid and take as directed. furosemide (LASIX) 20 mg tablet Take 1 tablet by mouth once daily for 7 days. REVIEW OF SYSTEMS: Systemic review is otherwise unremarkable. PHYSICAL EXAMINATION: BP 134/70 (BP S (more content not included)...[facility] 05-12-2023 History of Present illness Narrative* Chaitanya Watkins, DPM - 05/12/2023 9:54 AM EST Images from the original note were not included. PRIMARY SERVICE: [facility] SUBJECTIVE: He presents today [...] cardiac surgery 12/04/2022 Cardiomegaly 09/22/2012 borderline Dyslipidemia WAMPANOAG (hard of hearing) Hypertension Mitral regurgitation Pinched [...] UNLISTED 02/05/2010 Performed by CHAITANYA WATKINS at [facility] [place] GASTROCNEMIUS RECESSION 02/05/2010 Performed by CHAITANYA WATKINS at [facility] [place] PAST SURGICAL HISTORY OF 2005 [...] of SERVICE: 9:54 AM documented in this encounter[facility] History of Present illness Narrative* Magalys Shen Cast Tech - 05/12/2023 9:48 AM EST Patient was casted today for Custom Fitted Orthotics. BELA Corona documented in this encounterK[facility]12-[facility]23 History of Present illness Narrative* Cassie Bhatti RT(Silvio) - 05/12/2023 9:26 AM EST Radiology Service [...] 12, 2023 9:26 AM documented in this encounterK[facility]11-[facility]-2023 History of Present illness Narrative* [...] today. Chaitanya Watkins D.P.M. documented in this encounterK[facility]11-[facility]-2023 Evaluation note* Encounter Date Diagnosis Assessment Notes [...] understanding and is agreeable with treatment plan [facility] 11-05-2023 Hospital Discharge instructions Patient Education [...] balance is good. 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 Take uspd-jnk-sqappfm and prescription medicines only as told by [...] provider. Document Revised: 04/28/2021 Document Reviewed: 04/28/2021 [employer]MA[employer] Patient Education 2022 [employer]. Follow Up Care 04/11/2023 09:38:14 With:Raul DUMONT Address: [address] [facility] [address]- [phone] Business (1) When:04/14/2023 12:22:08 Comments:Return to the emergency room if your dizziness recurs or any new symptoms. [facility]09-12-2023 Hospital Discharge instructions Patient Education 02/16/2023 12:02:27 [...] urethra. Follow these instructions at home: Take fkof-nin-usxhlgu and prescription medicines only as told by [...] provider. Document Revised: 12/10/2021 Document Reviewed: 12/10/2021 IMASTE Patient Education 2022 [employer]. Follow Up Care 12/29/2022 10:02:22 With:IVONNE GRANT PA-C, URL Address: [address] [place] [address]. [place] [address] When:Within 1 Year(s) Comments:w/MAGDA [facility] 08-23-2023 History of Present illness Narrative* Chaitanya Watkins [...] today. Chaitanya Watkins, Radha.P.M. documented in this encounterK[facility]08-[facility]-2023 Miscellaneous Notes* Telephone Encounter - Savanna Zhang MD - 01/25/2023 12:25 PM EDT Patient called for input on HR 90s, sinus on ECG, no significant sxs, has follow up appt in feb. documented in this encounterKettering [facility]08-10-2023 NoteHNO ID: [id number] Author: Barbara Warner APRN.[employer], DNP Service: ? Author Type: Nurse Practitioner Type: Progress Notes Filed: 01/14/2023 1:50 PM Note Text: [facility] [place] [facility] Department of Cardiovascular Medicine SECTION OF CLINICAL CARDIOLOGY OUTPATIENT VISIT DATE January 14, 2023 OUTPATIENT VISIT TYPE ESTABLISHED PRIMARY CARE PHYSICIAN: Raul Dumont [address] [place] [address] REFERRING PHYSICIAN: Hugo Solano [address] [place] [address] CHIEF COMPLAINT: Established Patient and Hospital Follow [...] cardiac surgery 12/04/2022 Cardiomegaly 09/22/2012 borderline Dyslipidemia WAMPANOAG (hard of hearing) Hypertension Mitral regurgitation Pinched nerve in neck Spinal stenosis Stroke (HCC) 06/07/2007 TIA (transient ischemic attack) 06/07/2007 Verchristofer PAST SURGICAL HISTORY Procedure Laterality Date ATRIAL FIBRILLATION/FLUTTER ABLATION 2001,2003, 2012 - Radiofrequency ablation for atrial fibrillation BACK SURGERY HX Disc Surgery FOOT/TOES SURGERY PROC UNLISTED 02/05/2010 Performed by CHAITANYA WATKINS at [facility] [place] GASTROCNEMIUS RECESSION 02/05/2010 Performed by CHAITANYA WATKINS at [facility] [place] PAST SURGICAL HISTORY OF 2006 [...] of Onset Ischemic Heart Disease Father 52 ID other (cancer, lung) Father 56 yrs Asthma [...] mouth once daily for 7 days. mag [id number] rt xt 500-3,000-150 mg-unit-mg tab Take by [...] unsure of dosage Chew (more content not included)...[facility]08-10-2023 History of Present illness Narrative* Barbara Warner APRN.[employer], DNP - 01/14/2023 1:13 PM EDT Images from the original note were not included. [facility] [place] [facility] Department of Cardiovascular Medicine SECTION OF CLINICAL CARDIOLOGY OUTPATIENT VISIT DATE January 14, 2023 OUTPATIENT VISIT TYPE ESTABLISHED PRIMARY CARE PHYSICIAN: Raul Dumont [address] [place] [address] REFERRING PHYSICIAN: Hugo Solano [address] [facility] [address] CHIEF COMPLAINT: Established Patient and Hospital Follow [...] cardiac surgery 12/04/2022 Cardiomegaly 09/22/2012 borderline Dyslipidemia WAMPANOAG (hard of hearing) Hypertension Mitral regurgitation Pinched nerve in neck Spinal stenosis Stroke (HCC) 06/07/2007 TIA (transient ischemic attack) 06/07/2007 Nolvia PAST SURGICAL HISTORY Procedure Laterality Date ATRIAL FIBRILLATION/FLUTTER ABLATION 2001,2003, 2012 - Radiofrequency ablation for atrial fibrillation BACK SURGERY HX Disc Surgery FOOT/TOES SURGERY PROC UNLISTED 02/05/2010 Performed by CHAITANYA WATKINS at [facility] [place] GASTROCNEMIUS RECESSION 02/05/2010 Performed by CHAITANYA WATKINS at [facility] [place] PAST SURGICAL HISTORY OF 2006 [...] of Onset Ischemic Heart Disease Father 52 ID other (cancer, lung) Father 56 yrs Asthma [...] mouth once daily for 7 days. mag iwinn-A8-wzvjqxop rt xt 500-3,000-150 mg-unit-mg tab Take by [...] the prior echocardiographic exam performed on 12/04/2022 (YANIV). Similar post-op findings. * * * Final [...] RV is adjacent to the inferior retrosternum. 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 Appliances: ALESSIO Transcribe Date/Time: Dec 01 2022 5:15P [...] 60%, appears well compensated. Normal coronaries by [facility] 11/2022, angina free, stable. Paroxsymal atrial fib, [...] others. CONTACT INFORMATION: Barbara Warner APRN.RAMÓN ALEXANDER [facility] [address] [place] [address] documented in this encounterKet[facility]08-02-2023 History of Present illness Narrative* Zari Cobb RN - 01/06/2023 10:12 AM EDT QOL Call Tracking Documentation Follow-Up Type: Phone Call Call Attempt: 1st Attempt Call Status: Patient Refused (Requested to be removed from QoL Dashboard) documented in this encounterKettering [facility]07-12-2023 History of Present illness Narrative* Mary Jo Olvera APRN.BENJAMIN - 12/16/2022 1:00 PM EDT Images from the original note were not included. [facility] [place] [facility] Department of Cardiovascular Medicine DEPARTMENT [...] cardiac surgery 12/04/2022 Cardiomegaly 09/22/2012 borderline Dyslipidemia WAMPANOAG (hard of hearing) Hypertension Mitral regurgitation Pinched nerve in neck Spinal stenosis Stroke (HCC) 06/07/2007 TIA (transient ischemic attack) 06/07/2007 Verruca PAST SURGICAL HISTORY Procedure Laterality Date ATRIAL FIBRILLATION/FLUTTER ABLATION 2001,2003, 2012 - Radiofrequency ablation for atrial fibrillation BACK SURGERY HX Disc Surgery FOOT/TOES SURGERY PROC UNLISTED 02/05/2010 Performed by CHAITANYA WATKINS at [facility] [place] GASTROCNEMIUS RECESSION 02/05/2010 Performed by CHAITANYA WATKINS at [facility] [place] PAST SURGICAL HISTORY OF 2005 [...] 1 TABLET BY MOUTH EVERY DAY mag azpwd-O9-bimjddbx rt xt 500-3,000-150 mg-unit-mg tab Take by [...] LEFT AXIS DEVIATION Vent. rate 80 BPM NC interval 204 ms QRS duration 98 ms [...] with PCP next week Follow up with staff toxicologist in 4-6 weeks. Call CTS OPD with [...] reviewed Discussed wound care Mary Jo Olvera APRN.LABORER [employer] documented in this encounterKet[facility]07-12-2023 History of Present illness Narrative* Rhonda Jarrell RT(R) - 12/16/2022 12:15 PM EDT Radiology [...] IV DATA: Not applicable SIGNED BY: RT Ellyn(R) December 16, 2022 12:53 PM documented in this encounterKettering [facility]07-07-2023 Miscellaneous Notes* Telephone Encounter - Monique Vera RN - 12/11/2022 8:13 AM EDT [facility] Contact Center Inbound Phone Encounter DATE of SERVICE: 12/11/2022 TIME of SERVICE: 8:13 AM Status: Non-urgent, needs attention Service/Provider: Cardiac Surgery Brain Nieves M.D. Reason for call: Medication Issue/Question/Constipation Contact information: Sabiha (daughter) [phone] cell Resolution: Other [id number] Charge [employer] Jessica Rivera CNP Comments: Daughter calling [facility] line. D/c 12/09/22. Constipation going on day [...] of Resolution 8:13 AM documented in this encounterKettering [facility]07-06-2023 Miscellaneous Notes* Telephone Encounter - Mary Carmen Meier RN - 12/10/2022 11:56 AM EDT Called patient after recent discharge unable to leave voice message. documented in this encounterKettering [facility]07-02-2023 History of Past illness Narrative* [...] of this encounter (statuses as of 12/10/2022) [facility] History of Past illness Narrative* [...] of this encounter (statuses as of 12/11/2022) [facility] History of Past illness Narrative* [...] Stress hyperglycemia 12/04/2022 023 Overview: History: postop documented as of this encounter (statuses as of 12/17/2022) [facility] History of Past illness Narrative* [...] Stress hyperglycemia 12/04/2022 023 Overview: History: postop documented as of this encounter (statuses as of 12/18/2022) [facility] History of Past illness Narrative* [...] Stress hyperglycemia 12/04/2022 023 Overview: History: postop documented as of this encounter (statuses as of 01/06/2023) [facility] History of Past illness Narrative* [...] of this encounter (statuses as of 01/14/2023) [facility] History of Past illness Narrative* [...] of this encounter (statuses as of 01/25/2023) [facility] History of Past illness Narrative* [...] of this encounter (statuses as of 01/27/2023) [facility] of Past illness Narrative* [...] of this encounter (statuses as of 05/05/2023) [facility] History of Past illness Narrative* [...] of this encounter (statuses as of 05/12/2023) [facility] History of Past illness Narrative* [...] of this encounter (statuses as of 05/12/2023) [facility] History of Past illness Narrative* [...] of this encounter (statuses as of 07/09/2023) [facility] History of Past illness Narrative* [...] of this encounter (statuses as of 07/09/2023) [facility] of Past illness Narrative* [...] of this encounter (statuses as of 07/13/2023) [facility] of Past illness Narrative* [...] surgery 12/04/2022 12/06/2022 Overview: Postoperative pain 12/04/2022 3 Overview: History: postop Stress hyperglycemia 12/04/2022 023 Overview: History: postop Elevated blood pressure (not hypertension) 02/26/2014 01/14/2023 documented as of this encounter (statuses as of 08/05/2023) [facility] History of Present illness Narrative* Brain Nieves MD - 12/03/2022 1:51 PM EDT Images from the original note were not included. [facility] [place] DEPARTMENT OF CARDIAC SURGERY OUTPATIENT VISIT DATE December 03, 2022 OUTPATIENT VISIT SERVICE DATE: 12/03/2022 SERVICE TIME: 1:51 PM PCP: Raul Dumont [address] [facility] [address] [place] [address] Referring Physician: Savanna Zhang [address] [facility] [address] [facility] [address] Patient Type: New Visit to Determine Surgery: [...] RV is adjacent to the inferior retrosternum. 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 Appliances: ALESSIO Transcribe Date/Time: Dec 01 2022 5:15P [...] record Brain Nieves MD documented in this encounterKettering [facility]06-29-2023 History of Present illness Narrative* [...] topic: Bactroban instructions given documented in this encounterKettering Health [facility]06-29-2023 History of Present illness Narrative* [...] (HCC) basal cell Cardiomegaly 09/22/2012 borderline Dyslipidemia WAMPANOAG (hard of hearing) Hypertension Mitral regurgitation Pinched nerve in neck Spinal stenosis Stroke (HCC) 06/07/2007 TIA (transient ischemic attack) 06/07/2007 Verruca PAST SURGICAL HISTORY Procedure Laterality Date ATRIAL FIBRILLATION/FLUTTER ABLATION 2001,2003 BACK SURGERY HX Disc Surgery FOOT/TOES SURGERY PROC UNLISTED 02/05/2010 Performed by CHAITANYA WATKINS at [facility] [place] GASTROCNEMIUS RECESSION 02/05/2010 Performed by CHAITANYA WATKINS at [facility] [place] PAST SURGICAL HISTORY OF endoscopic plantar fasciotomy PAST SURGICAL HISTORY OF 04/24/2013 ablation TUR CRYOSURG REM OF PROSTATE FAMILY HISTORY Problem Relation Age of Onset Ischemic Heart Disease Father 52 ID other (cancer, lung) Father 56 yrs Asthma [...] 1 TABLET BY MOUTH EVERY DAY mag fsdgr-L3-arpabets rt xt 500-3,000-150 mg-unit-mg tab Take by [...] RV is adjacent to the inferior retrosternum. 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 Appliances: PSCHarvey Transcribe Date/Time: Dec 01 2022 5:15P [...] and consent discussed: yes. Patient / Responsible Constitution Party agrees to proceed: yes Patient / Surrogate agrees to blood products: Yes Instructions Given to Patient: Instructions located in the after visit summary. Patient given verbal and written preop instructions and voices comprehension and compliance. Signature: Jg Reed MD Patient Name: Jordi Franco Date: December 03, 2022 Time: 11:05 AM Pager/Contact #: documented in this encounterKettering Health [facility]06-27-2023 Miscellaneous Notes* Telephone Encounter - Moraima Solis [...] Instructions/Restrictions- instructed to be accompanied by adult spotter driver at discharge Patient/Family Response Evaluation: Verbalizes understanding Follow Up Plan and Medication: As directed by physician Instruction/Supplemental Material Given: Cardiac catheterization instructions, procedure information, hospital information, hotel information. Instructed By Moraima Solis RN, RN. In Department of CARDIOLOGY. documented in this encounterKettering Health [facility]06-27-2023 History of Present illness Narrative* [...] 2022 TIME: 1:50 PM documented in this encounterKettering Health [facility]06-19-2023 Miscellaneous Notes* Telephone Encounter - Maura Daigle RN - 11/23/2022 3:22 PM EDT CARE CONTINUUM ADVISOR ASSESSMENT PRIMARY CARE PHYSICIAN: Raul Dumont DO OR Surgery Date: 12/04/22 [facility] Appointment: 12/03/22 Health Insurance: Medicare A&B, [place] Financial Resources: Employed: Works [id number] Primary Contact: Extended Emergency Contact Information Primary Emergency Contact: SalvadorLayla Address: [address] [place] [address] Relation: Spouse Secondary Emergency Contact: Td Franco Address: [address] [place] [address] [address] [place] [address] Relation: Son Other Important Patient Contacts: None Patient/Marketing Liaison Stated Goals: To improve my functional status and To return home to life as it was Logistics Assistant needed?: No Home Phone Primary Contact: NA [...] surgery/appointments?: Yes, plan to drive w/family to [place] Medication Adherence: Do you have any concerns with your prescription medication?: No Who do you use for pharmacy?: [id number] [place] [address] - [address] [facility] [phone] [place] [address] Pre-Hospital Baseline Mental Status: Alert & Oriented Informant: Self and Spouse What is your current functional status?: Perform ADLs independently, uses a cane or walking stick as needed. Equipment: Do you currently use any equipment at home for your medical condition or to help you get around? Cane - Straight Walking stick Active Services/Needs: None Do you have a community relations director contact through your insurance or [employer]AAA?: No Has the Patient Been in a Snf Facility in the Past 30 days? No FREEDOM OF CHOICE: Level of Care Discussed: Home Care, Snf Facility, Inpatient Rehab Facility, [facility], and Cardiac rehab Financial Disclosure Provided: No Financial Disclaimer Provided: Yes, regarding pre-cert / insurance authorization Provider List: Home Care and Snf Facility Provider list within the patient's requested geographic area shared with the patient/family: Yes - Within 25 [place] [id number] [facility] [place] Provider Choices Collected Home Health: 1. [facility] Home Health 2. Jayesh Vega 3. [facility] 4. [facility] Interventions: Discussed importance of active PCP relationship and follow up Discussed insurance risks, gaps, and programs available Advanced Directives Education Discussed reliable transportation needs for surgery and follow up appointments Discussed prescription medications adherence Maura Daigle RN documented in this encounter[facility]23 Miscellaneous Notes* Telephone Encounter - Haley Valdez - 11/10/2022 3:53 PM EDT INN * Telephone Encounter - Qian Castillo - 11/10/2022 2:49 PM EDT Insurance Card(s) scanned into [employer] Please register/advise Thank You! documented in this encounterKettering [facility]05-16-2023 History of Present illness Narrative* Chaitanya Watkins [...] today. Chaitanya Watkins D.P.M. documented in this encounterKettering [facility]05-15-2023 Surgical operation note* Brief Op Note - Savanna Zhang MD - 10/19/2022 2:20 PM EDT Images from the original note were not included. BRIEF OPERATIVE / PROCEDURE NOTE LOG ID: [id number] PROCEDURE DATE: 10/19/2022 PROCEDURE START TIME: 1:35 PM PROCEDURE END TIME: 2:10 PM PROCEDURALIST(S) AND SUPERINTENDENT OPERATING(S): Surgeon(s) and Role: * Savanna Zahng MD - Primary No Additional Staff PROCEDURE(S): [...] 0.87 cm (0.42 cm /m ) by continuity VTI. The peak gradient is 44 mmHg, [...] + atleast mod Savanna Zhang MD Staff Technical Sales Consultant Lamina Searcher of Advanced Cardiac Imaging and Cardio-Oncology [facility] Pager: [phone] October 19, 2022 5:17 PM documented in this encounterKettering [facility]05-01-2023 Miscellaneous Notes* Telephone Encounter - Sherrell Alvarez [...] Coordinator Surgery Special Unit documented in this encounterKettering [facility]05-01-2023 Instructions* Patient Instructions* Savanna Zhang MD - 10/05/2022 9:52 AM EDT You have 2 heart valve conditions --mitral regurgitation and aortic stenosis To better define these valve conditions, we will plan on CELIA procedure We will touch base after CELIA procedure documented in this encounterKettering [facility]05-01-2023 History of Present illness Narrative* Savanna Zhang MD - 10/05/2022 9:30 AM EDT Images from the original note were not included. [facility] [place] Clemencia Dixon Department of Cardiovascular Medicine SECTION OF CLINICAL CARDIOLOGY OUTPATIENT VISIT DATE October 05, 2022 OUTPATIENT VISIT TYPE ESTABLISHED PRIMARY CARE PHYSICIAN: Raul Dumont [address] [place] [address] CHIEF COMPLAINT: Cardiology Follow Up , Paroxysmal [...] (HCC) basal cell Cardiomegaly 09/22/12 borderline Dyslipidemia WAMPANOAG (hard of hearing) Hypertension Pinched nerve in neck Spinal stenosis Stroke (HCC) 2007 TIA (transient ischemic attack) 2008 [facility] PAST SURGICAL HISTORY Procedure Laterality Date ATRIAL FIBRILLATION/FLUTTER ABLATION 2001,2003 FOOT/TOES SURGERY PROC UNLISTED 02/05/10 Performed by CHAITANYA WATKINS at [facility] [place] GASTROCNEMIUS RECESSION 02/05/10 Performed by CHAITANYA WATKINS at [facility] [place] PAST SURGICAL HISTORY OF endoscopic plantar fasciotomy PAST SURGICAL HISTORY OF 04/24/13 ablation TUR CRYOSURG REM OF PROSTATE SOCIAL HISTORY Social History Tobacco Use Smoking status: Never Smokeless tobacco: Never Substance Use Topics Alcohol use: No Drug use: No FAMILY HISTORY Problem Relation Age of Onset Ischemic Heart Disease Father 52 ID other (cancer, lung) Father 56 yrs Asthma Sister Asthma Grandchild No Family History Other colon cancer No Family History Other colon polyps other (heart disease) Brother open heart surgery ALLERGIES: ALLERGIES Allergen Reactions Grass Pollen Unknown Nasonex [Mometasone] Other: See Comments Made him feel very hot and very jittery and shakey. Prednisone Mental Status Change Sulfa (Sulfonamide * Unknown MEDICATIONS: mag [id number] rt xt 500-3,000-150 mg-unit-mg tab^Take by mouth.^Disp: [...] Dyspnea in the Emergency Department (PRIDE) Study. [place] Journal of Cardiology 2005:95:948 to 954. Levon [...] time CONTACT INFORMATION: Savanna Zhang MD Staff Technical Sales Consultant Lamina Searcher of Advanced Cardiac Imaging and Cardio-Oncology [facility] Pager: [phone] October 05, 2022 documented in this encounterKettering [facility]04-28-2023 Miscellaneous Notes* Telephone Encounter - Cristine Diamond [...] 02/15/2023 Cristine Diamond 10/02/2022 documented in this encounterKettering [facility]02-15-2023 History of Present illness Narrative* Chaitanya Watkins [...] necessary and is current for today. Diego WilliamsonPJennifer. documented in this encounterKettering Health [facility]11-15-2022 History of Present illness Narrative* Chaitanya Watkins [...] today. Chaitanya Watkins D.P.M. documented in this encounterKettering Health [facility]10-27-2022 Instructions* Patient Instructions* Savanna Zhang MD - [...] our follow up appointment documented in this encounterKettering Health [facility]10-27-2022 History of Present illness Narrative* Savanna Zhang MD - 04/02/2022 8:27 AM EDT Images from the original note were not included. [facility] [place] Clemencia Dixon Department of Cardiovascular Medicine SECTION OF CLINICAL CARDIOLOGY OUTPATIENT VISIT DATE April 02, 2022 OUTPATIENT VISIT TYPE NEW PRIMARY CARE PHYSICIAN: Raul Dumont [address] [place] [address] REFERRING PHYSICIAN: Aortic stenosis CHIEF COMPLAINT: Consult [...] (HCC) basal cell Cardiomegaly 09/22/12 borderline Dyslipidemia [place]OAG (hard of hearing) Hypertension Pinched nerve in neck Spinal stenosis Stroke (HCC) 2007 TIA (transient ischemic attack) 2008 [facility] PAST SURGICAL HISTORY Procedure Laterality Date ATRIAL FIBRILLATION/FLUTTER ABLATION 2001,2003 FOOT/TOES SURGERY PROC UNLISTED 02/05/10 Performed by CHAITANYA WATKINS at [facility] [place] GASTROCNEMIUS RECESSION 02/05/10 Performed by CHAITANYA WATKINS at [facility] [place] PAST SURGICAL HISTORY OF endoscopic plantar fasciotomy PAST SURGICAL HISTORY OF 04/24/13 ablation TUR CRYOSURG REM OF PROSTATE SOCIAL HISTORY Social History Tobacco Use Smoking status: Never Smokeless tobacco: Never Substance Use Topics Alcohol use: No Drug use: No FAMILY HISTORY Problem Relation Age of Onset Ischemic Heart Disease Father 52 ID other (cancer, lung) Father 56 yrs Asthma [...] with the prior echocardiographic exam performed on 02/17/2021. ASHUTOSH was 1.13 cm2, P/M gradient 31/19 mmHg. * * * Final * * * Last EKG Result Conclusion ECG COMPLETE Collected: 04/02/2022 7:53 AM (Preliminary result) Impression: SINUS RHYTHM WITH SHORT NC LEFT AXIS DEVIATION RSR' PATTERN IN V1 [...] Dyspnea in the Emergency Department (PRIDE) Study. [place] Journal of Cardiology 2005:95:948 to 954. Levon [...] paradoxical low flow low gradient moderately severe ASUHTOSH 0.8, mean grad 25 mmHg Cardiac meds [...] visit CONTACT INFORMATION: Savanna Zhang MD Staff Technical Sales Consultant Lamina Searcher of Advanced Cardiac Imaging and Cardio-Oncology [facility] Pager: [phone] April 02, 2022 11:10 AM documented in this encounterKettering Health [facility]09-30-2022 Miscellaneous Notes* Telephone Encounter - Clara Hernandez RN - 03/06/2022 9:32 AM EDT Called and spoke to patients - patient is unavailable. Appointment is scheduled for Dr. Zhang per Dr. Spaulding recommendation for April 02. will have patient return call when he return. Clara Hernandez RN * Telephone Encounter - Floyd Spaulding [...] inthe Aorta? Jordi Franco documented in this encounterKettering [facility]05-02-2022 Miscellaneous Notes* Telephone Encounter - Shelby Dhaliwal [...] Shelby Dhaliwal MA 10/06/2021 documented in this encounterFort [facility]wn ClinicEvaluation + Plan note Future Appointments Appointment Date:02/15/2023 10:45:00 AM Scheduled Provider:Osmel GARCIA MD Location[facility] Appointment Type:URO Office Visit Appointment Date:04/29/2023 11:00:00 AM Scheduled Provider: Location:[facility] Appointment Type:FM Medicare Wellness Subsequent [facility] Evaluation + Plan note Future Appointments Appointment Date:02/15/2023 10:45:00 AM Scheduled Provider:Osmel GARCIA MD Location:[facility] Appointment Type:URO Office Visit Appointment Date:04/29/2023 11:00:00 AM Scheduled Provider: Location:[facility] Appointment Type:FM Medicare Wellness Subsequent Future Scheduled Tests Laboratory* Basic Metabolic Panel 07/20/22 * CBC w/ Auto Diff 07/20/22 * Thyroid Stimulating Hormone 07/20/22 [facility] Evaluation + Plan note Future Appointments Appointment Date:04/29/2023 11:00:00 AM Scheduled Provider: Location:[facility] Appointment Type:FM Medicare Wellness Subsequent Appointment Date:02/22/2024 10:00:00 AM Scheduled Provider:IVONNE GRANT PA-C Location:[facility] Appointment Type:URO Office Visit Diagnostic Tests Pending * PSA Total 02/16/23 Future Scheduled Tests Laboratory* Basic Metabolic Panel 07/20/22 * CBC w/ Auto Diff 07/20/22 * Thyroid Stimulating Hormone 07/20/22 [facility] evaluation + Plan note Future Appointments Appointment Date:05/03/2023 11:00:00 AM Scheduled Provider: Location:[facility] Appointment Type:FM Medicare Wellness Subsequent Appointment Date:02/22/2024 10:00:00 AM Scheduled Provider:IVONNE GRANT PA-C [facility] Office Visit Future Scheduled Tests Laboratory* Basic Metabolic Panel 07/20/22 * CBC w/ Auto Diff 07/20/22 * Thyroid Stimulating Hormone [facility] App[facility]ments Appointment Date:02/22/2024 10:00:00 AM Scheduled Provider:IVONNE GRANT PA-C Location:[facility] Mehreen Appointment Type:URO Office Visit Appointment Date:05/09/2024 11:00:00 AM Scheduled Provider: Location:[facility] Appointment Type: Medicare Wellness Subsequent Future Scheduled Tests Laboratory* Basic Metabolic Panel 07/20/22 * CBC w/ Auto Diff 07/20/22 * Thyroid Stimulating Hormone 07/20/22 [facility] [place] Evaluation noteNo assessment information available [facility] Work Phone: evaluation note* Diagnosis Paroxysmal atrial fibrillation (HCC)- Primary Atrial fibrillation Nonrheumatic aortic valve stenosis Aortic valve disorders Primary hypertension Unspecified essential hypertension Hyperlipidemia with target LDL less than 70 Other and unspecified hyperlipidemia [facility] Diagnosis Onychomycosis- Primary Dermatophytosis of nail Pain in toes of both feet [facility]* Diagnosis Onychomycosis- Primary Dermatophytosis of [...] valve disease unspecified [facility] Diagnosis Onychomycosis- Primary Dermatophytosis of nail Pain in toes of both feet Atherosclerosis of aorta (HCC) Atherosclerosis of aorta [facility] Diagnosis Mitral regurgitation and aortic stenosis- Primary Mitral valve insufficiency and aortic valve stenosis [facility]* Diagnosis Encounter for preprocedural cardiovascular examination [...] Mitral valve disorders documented in this encounter [facility]* Diagnosis Encounter for education- Primary Counseling NOS Pre-op exam Preoperative examination, unspecified Encounter for preprocedural cardiovascular examination Pre-operative cardiovascular examination Pre-operative cardiovascular examination Aortic valve disorder Aortic valve disorders Paroxysmal atrial fibrillation (HCC) Atrial fibrillation Mitral valve disorder Mitral valve disorders documented in this encounter [facility]* Diagnosis Encounter for preoperative anesthesiology assessment for cardiac surgery- Primary Atherosclerosis of aorta (HCC) Atherosclerosis of aorta Paroxysmal atrial fibrillation (HCC) Atrial fibrillation Encounter for preprocedural cardiovascular examination Pre-operative cardiovascular examination Pre-operative cardiovascular examination Aortic valve disorder Aortic valve disorders Paroxysmal atrial fibrillation (HCC) Atrial fibrillation Mitral valve disorder Mitral valve disorders [facility]* Diagnosis Nonrheumatic aortic valve stenosis- Primary Aortic valve disorders Encounter for preprocedural cardiovascular examination Pre-operative cardiovascular examination Pre-operative cardiovascular examination Aortic valve disorder Aortic valve disorders Paroxysmal atrial fibrillation (HCC) Atrial fibrillation Mitral valve disorder Mitral valve disorders [facility]* Diagnosis Surgery follow-up Follow-up examination, following unspecified surgery [facility]* Diagnosis S/P aortic valve replacement- Primary Heart valve replaced by other means S/P mitral valve repair Other postprocedural status S/P patent foramen ovale closure Other postprocedural status Paroxysmal atrial fibrillation (HCC) Atrial fibrillation Essential hypertension Unspecified essential hypertension documented in this encounter [facility]* Diagnosis Paroxysmal atrial fibrillation (HCC)- Primary Atrial fibrillation Nonrheumatic mitral valve regurgitation Nonrheumatic aortic valve stenosis Aortic valve disorders Essential hypertension Unspecified essential hypertension S/P MVR (mitral valve replacement) Heart valve replaced by other means documented in this encounter [facility]* Diagnosis Onychomycosis- Primary Dermatophytosis of nail Pain in toes of both feet documented in this encounter [facility]* Diagnosis Onychomycosis- Primary Dermatophytosis of nail Pain in toes of both feet documented in this encounter [facility]* Diagnosis Pain in toes of both feet- Primary [facility] Diagnosis 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 Enthesopathy of ankle and tarsus, unspecified documented in this encounter [facility]* Diagnosis Pain Generalized pain documented in this encounter [facility]* Diagnosis Onychomycosis- Primary Dermatophytosis of nail Pain in toes of both feet documented in this encounter [facility]* Diagnosis Neoplasm of skin documented [facility] this encounter [facility] Narrative - Reported* Type Description Date Medical History anxiety Medical History hypercholesterolemia Medical History hx of strokes Medical History hypertension Medical History melanoma Medical History Parkinsonism, unspecified Medical History GERD (gastroesophageal reflux di sease) Medical History CAD (coronary artery disease) Surgical History melanoma removal on arm Surgical History back Surgical History heart valve repair [facility] course Narrative No data available for this section [facility] Hospital Discharge instructions No data available for this section [facility] Progress note No data available for this section [facility] Reason for referral (narrative)* Outpatient Procedure (Routine) - Authorized Specialty Diagnoses / Procedures Referred By Asuncion rucker Referred To Contact [facility] [place] Diagnoses Nonrheumatic aortic valve stenosis Procedures ECHO ECHO TTHRC R-T 2D W/WOM-MODE COMPL SPEC&COLR D Savanna Zhang MD [address] [address] [place] [address] [facility] [place] [address] Referral ID Status Reason Start Date Expiration Date Visits Requested Visits Authorized [id number] Authorized Auto-Generat ed Referral 10/01/2022 04/02/2023 1 1 [facility] for referral (narrative)* Outpatient Procedure (Routine) - Pending Review Specialty Diagnoses / Procedures Referred By Asuncion rucker Referred To [facility] Diagnoses Mitral regurgitation and aortic stenosis Procedures ECHO TRANSESOPHAGEAL ECHO TRANSESOPHAG R-T 2D W/PRB IMG ACQUISJ I&R Savanna Zhang MD [address] [facility] [address] [place] [address] [facility] [place] [address] [place] [id number] Referral ID Status Reason Start Date Expiration Date Visits Requested Visits Authorized [id number] Pending Review Auto-Generat ed Referral 10/05/2022 10/05/2023 1 1 * Outpatient Procedure (Routine) - Pending Review Specialty Diagnoses / Procedures Referred By Contac t Referred To Contact [facility] [place] Diagnoses Mitral regurgitation and aortic stenosis Procedures ECG COMPLETE ECG ROUTINE ECG W/LEAST 12 LDS W/I&R Savanna Zhang MD [address] [facility] [address] [place] [address] [facility] [place] [address] [place] [id number] Referral ID Status Reason Start Date Expiration Date Visits Requested Visits Authorized [id number] Pending Review Auto-Generat ed Referral 10/05/2022 10/05/2023 1 1 [facility] for referral (narrative)* Outpatient Procedure (Routine) - Closed Specialty Diagnoses / Procedures Referred By Contac t Referred To Contact [facility] [place] Diagnoses Paroxysmal atrial fibrillation (HCC) Procedures ECG COMPLETE ECG ROUTINE ECG W/LEAST 12 LDS W/I&R Barbara Warner APRN.CNP, DNP [address] [facility] [address] [place] [address] [facility] [address] [place] [address] Referral ID Status Reason Start Date Expiration Date V isits Requested Visits Authorized [id number] Closed Auto-Generate d Referral 01/14/2023 01/14/2024 1 1 [facility] for referral (narrative)* Diagnostic Procedure Only (Routine) - Closed Specialty Diagnoses / Procedures Referred By Contac t Referred To Contact XR IMAGING Diagnoses Pain Procedures XR FOOT GENERAL 3V AP/LAT/OBL LEFT RADEX FOOT COMPLETE MINIMUM 3 VIEWS Chaitanya Watkins DPM [address] [place] [address] [place] [address] Referral ID Status Reason Start Date Expiration Date V isits Requested Visits Authorized [id number] Closed Auto-Generate d Referral 05/10/2023 06/08/2024 1 1 [facility] for visit Narrative* Diagnostic Procedure Only (Routine) - Closed Specialty Diagnoses / Procedures Referred By Asuncion t Referred To Contact XR IMAGING Diagnoses Pain Procedures XR FOOT GENERAL 3V AP/LAT/OBL LEFT RADEX FOOT COMPLETE MINIMUM 3 VIEWS Chaitanya Watkins DPM [address] [place] [address] [place] [address] Referral ID Status Reason Start Date Expiration Date V isits Requested Visits Authorized [id number] Closed Auto-Generate d Referral 05/10/2023 06/08/2024 1 1 [facility] Summary Purpose Family History Relationship Condition Age at Onset Recorded Date/T sarah brother Unknown father Malignant neoplasm Unknown Unknown Not Specified Unknown sister Unknown Advance Directives Documents on File Type Date Recorded 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 Advance Directive(s) 06/25/2020 10:37 AM Advance Directive(s) 06/20/2020 2:42 PM Advance Directive Response Recorded Date/ Time Advance Directives No February 2:28am Chief Complaint and Reason for Visit Chief Complaint R25.1 R26.9 Chief Complaint clogged ears Reason for Referral Specialty Diagnoses / Procedures Referred By Asuncion t Referred To Contact CT IMAGING Diagnoses Encounter for preprocedural cardiovascular examination Pre-operative cardiovascular examination Aortic valve disorder Paroxysmal atrial fibrillation (HCC) Mitral valve disorder Procedures CTA CHEST (GATED) W IVCON CT ANGIOGRAPHY CHEST W/CONTRAST/NONCONTRAST Brain Nieves MD [address] [place] [address] Ct Imaging Referral ID Status Reason Start Date Expiration Date V isits Requested Visits Authorized [id number] Closed Auto-Generate d Referral 11/16/2022 12/16/2023 1 1 Specialty Diagnoses / Procedures Referred By Asuncion rucker Referred To Contact Cardiothoracic Surgery Diagnoses Mitral regurgitation and aortic stenosis Procedures CONSULT TO CARDIOTHORACIC SURGERY Savanna Zhang MD [address] [place] [address] Brain Nieves MD [address] [place] [address] Referral ID Status Reason Start Date Expiration Date Visits Requested Visits Authorized [id number] Ref Not Required PCP Requested Referral 11/10/2022 11/10/2023 1 1 Additional Source Comments (unrecognized sect ion and content) No Status Records FoundNo Status Records FoundNo Status Records FoundNo Status Records FoundNo Status Records FoundNo Status Records FoundNo Status Records FoundNo Status Records Found INFORMATION SOURCE (unrecogn ized section and content) DATE CREATED AUTHOR 08/03/2019 [facility] DATE CREATED AUTHOR AUTHOR'S ORGANIZ ATION [facility]/03/2022 [facility] DATE CREATED AUTHOR AUTHOR'S ORGANIZ ATION 01/07/2022 [facility] DATE CREATED AUTHOR AUTHOR'S ORGANIZ ATION 12/03/2023 [facility] DATE CREATED AUTHOR AUTHOR'S ORGANIZ ATION 12/08/2023 [facility] ed[facility] Center DATE CREATED AUTHOR AUTHOR'S ORGANIZ ATION 02/19/2024 [facility] d[facility] Specialists EPIC DATE CREATED AUTHOR AUTHOR'S ORGANIZ ATION 02/26/2024 [facility] DATE CREATED AUTHOR AUTHOR'S ORGANIZ ATION 05/12/2024 [facility] Source Comments (unrecognize d section and content) In the event this informatio n is protected by the Federal Confidentiality of Alcohol and Drug Abuse Patient Records regulations: The Federal rules restrict any use of the information to criminally investigate or prosecute any alcohol or drug abuse patient.[facility] Center[facility] the event this information is protected by the Federal Confidentiality of Alcohol and Drug Abuse Patient Records regulations: The Federal rules restrict any use of the information to criminally investigate or prosecute any alcohol or drug abuse patient.[facility] CenterIn the event this information is protected by the Federal Confidentiality of Alcohol and Drug Abuse Patient Records regulations: The Federal rules restrict any use of the information to criminally investigate or prosecute any alcohol or drug abuse patient.[facility] CenterIn the event this information is protected by the Federal Confidentiality of Alcohol and Drug Abuse Patient Records regulations: The Federal rules restrict any use of the information to criminally investigate or prosecute any alcohol or drug abuse patient.[facility] CenterIn the event this information is protected by the Federal Confidentiality of Alcohol and Drug Abuse Patient Records regulations: The Federal rules restrict any use of the information to criminally investigate or prosecute any alcohol or drug abuse patient.[facility] CenterIn the event this information is protected by the Federal Confidentiality of Alcohol and Drug Abuse Patient Records regulations: The Federal rules restrict any use of the information to criminally investigate or prosecute any alcohol or drug abuse patient.[facility] CenterIn the event this information is protected by the Federal Confidentiality of Alcohol and Drug Abuse Patient Records regulations: The Federal rules restrict any use of the information to criminally investigate or prosecute any alcohol or drug abuse patient.[facility] CenterIn the event this information is protected by the Federal Confidentiality of Alcohol and Drug Abuse Patient Records regulations: The Federal rules restrict any use of the information to criminally investigate or prosecute any alcohol or drug abuse patient.[facility] CenterIn the event this information is protected by the Federal Confidentiality of Alcohol and Drug Abuse Patient Records regulations: The Federal rules restrict any use of the information to criminally investigate or prosecute any alcohol or drug abuse patient.[facility] the event this information is protected by the Federal Confidentiality of Alcohol and Drug Abuse Patient Records regulations: The Federal rules restrict any use of the information to criminally investigate or prosecute any alcohol or drug abuse patient.[facility] CenterIn the event this information is protected by the Federal Confidentiality of Alcohol and Drug Abuse Patient Records regulations: The Federal rules restrict any use of the information to criminally investigate or prosecute any alcohol or drug abuse patient.[facility] CenterIn the event this information is protected by the Federal Confidentiality of Alcohol and Drug Abuse Patient Records regulations: The Federal rules restrict any use of the information to criminally investigate or prosecute any alcohol or drug abuse patient.[facility] CenterIn the event this information is protected by the Federal Confidentiality of Alcohol and Drug Abuse Patient Records regulations: The Federal rules restrict any use of the information to criminally investigate or prosecute any alcohol or drug abuse patient.[facility] CenterIn the event this information is protected by the Federal Confidentiality of Alcohol and Drug Abuse Patient Records regulations: The Federal rules restrict any use of the information to criminally investigate or prosecute any alcohol or drug abuse patient.[facility] CenterIn the event this information is protected by the Federal Confidentiality of Alcohol and Drug Abuse Patient Records regulations: The Federal rules restrict any use of the information to criminally investigate or prosecute any alcohol or drug abuse patient.[facility] CenterIn the event this information is protected by the Federal Confidentiality of Alcohol and Drug Abuse Patient Records regulations: The Federal rules restrict any use of the information to criminally investigate or prosecute any alcohol or drug abuse patient.[facility] CenterIn the event this information is protected by the Federal Confidentiality of Alcohol and Drug Abuse Patient Records regulations: The Federal rules restrict any use of the information to criminally investigate or prosecute any alcohol or drug abuse patient.[facility] CenterIn the event this information is protected by the Federal Confidentiality of Alcohol and Drug Abuse Patient Records regulations: The Federal rules restrict any use of the information to criminally investigate or prosecute any alcohol or drug abuse patient.[facility] CenterIn the event this information is protected by the Federal Confidentiality of Alcohol and Drug Abuse Patient Records regulations: The Federal rules restrict any use of the information to criminally investigate or prosecute any alcohol or drug abuse patient.[facility] CenterIn the event this information is protected by the Federal Confidentiality of Alcohol and Drug Abuse Patient Records regulations: The Federal rules restrict any use of the information to criminally investigate or prosecute any alcohol or drug abuse patient.[facility] CenterIn the event this information is protected by the Federal Confidentiality of Alcohol and Drug Abuse Patient Records regulations: The Federal rules restrict any use of the information to criminally investigate or prosecute any alcohol or drug abuse patient.[facility] CenterIn the event this information is protected by the Federal Confidentiality of Alcohol and Drug Abuse Patient Records regulations: The Federal rules restrict any use of the information to criminally investigate or prosecute any alcohol or drug abuse patient.[facility] CenterIn the event this information is protected by the Federal Confidentiality of Alcohol and Drug Abuse Patient Records regulations: The Federal rules restrict any use of the information to criminally investigate or prosecute any alcohol or drug abuse patient.[facility] CenterIn the event this information is protected by the Federal Confidentiality of Alcohol and Drug Abuse Patient Records regulations: The Federal rules restrict any use of the information to criminally investigate or prosecute any alcohol or drug abuse patient.[facility] CenterIn the event this information is protected by the Federal Confidentiality of Alcohol and Drug Abuse Patient Records regulations: The Federal rules restrict any use of the information to criminally investigate or prosecute any alcohol or drug abuse patient.[facility] CenterIn the event this information is protected by the Federal Confidentiality of Alcohol and Drug Abuse Patient Records regulations: The Federal rules restrict any use of the information to criminally investigate or prosecute any alcohol or drug abuse patient.[facility] CenterIn the event this information is protected by the Federal Confidentiality of Alcohol and Drug Abuse Patient Records regulations: The Federal rules restrict any use of the information to criminally investigate or prosecute any alcohol or drug abuse patient.[facility] CenterIn the event this information is protected by the Federal Confidentiality of Alcohol and Drug Abuse Patient Records regulations: The Federal rules restrict any use of the information to criminally investigate or prosecute any alcohol or drug abuse patient.[facility] CenterIn the event this information is protected by the Federal Confidentiality of Alcohol and Drug Abuse Patient Records regulations: The Federal rules restrict any use of the information to criminally investigate or prosecute any alcohol or drug abuse patient.[facility] CenterIn the event this information is protected by the Federal Confidentiality of Alcohol and Drug Abuse Patient Records regulations: The Federal rules restrict any use of the information to criminally investigate or prosecute any alcohol or drug abuse patient.[facility] CenterIn the event this information is protected by the Federal Confidentiality of Alcohol and Drug Abuse Patient Records regulations: The Federal rules restrict any use of the information to criminally investigate or prosecute any alcohol or drug abuse patient.[facility] CenterIn the event this information is protected by the Federal Confidentiality of Alcohol and Drug Abuse Patient Records regulations: The Federal rules restrict any use of the information to criminally investigate or prosecute any alcohol or drug abuse patient.[facility] CenterIn the event this information is protected by the Federal Confidentiality of Alcohol and Drug Abuse Patient Records regulations: The Federal rules restrict any use of the information to criminally investigate or prosecute any alcohol or drug abuse patient.[facility] CenterIn the event this information is protected by the Federal Confidentiality of Alcohol and Drug Abuse Patient Records regulations: The Federal rules restrict any use of the information to criminally investigate or prosecute any alcohol or drug abuse patient.[facility] CenterIn the event this information is protected by the Federal Confidentiality of Alcohol and Drug Abuse Patient Records regulations: The Federal rules restrict any use of the information to criminally investigate or prosecute any alcohol or drug abuse patient.[facility] CenterIn the event this information is protected by the Federal Confidentiality of Alcohol and Drug Abuse Patient Records regulations: The Federal rules restrict any use of the information to criminally investigate or prosecute any alcohol or drug abuse patient.[facility] CenterIn the event this information is protected by the Federal Confidentiality of Alcohol and Drug Abuse Patient Records regulations: The Federal rules restrict any use of the information to criminally investigate or prosecute any alcohol or drug abuse patient.[facility] CenterIn the event this information is protected by the Federal Confidentiality of Alcohol and Drug Abuse Patient Records regulations: The Federal rules restrict any use of the information to criminally investigate or prosecute any alcohol or drug abuse patient.[facility] CenterIn the event this information is protected by the Federal Confidentiality of Alcohol and Drug Abuse Patient Records regulations: The Federal rules restrict any use of the information to criminally investigate or prosecute any alcohol or drug abuse patient.[facility] CenterIn the event this information is protected by the Federal Confidentiality of Alcohol and Drug Abuse Patient Records regulations: The Federal rules restrict any use of the information to criminally investigate or prosecute any alcohol or drug abuse patient.[facility] CenterIn the event this information is protected by the Federal Confidentiality of Alcohol and Drug Abuse Patient Records regulations: The Federal rules restrict any use of the information to criminally investigate or prosecute any alcohol or drug abuse patient.[facility] CenterIn the event this information is protected by the Federal Confidentiality of Alcohol and Drug Abuse Patient Records regulations: The Federal rules restrict any use of the information to criminally investigate or prosecute any alcohol or drug abuse patient.[facility] Reason for Visit (unrecogniz ed section and content) Reason Comments Refill Request Reason Comments Results Reason Comments Consult Dr. 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 Assessment Reason Comments Education Of Patient/family Specialty Diagnoses / Procedures Referred By Contac t Referred To Contact CT IMAGING Diagnoses Encounter for preprocedural cardiovascular examination Pre-operative cardiovascular examination Aortic valve disorder Paroxysmal atrial fibrillation (HCC) Mitral valve disorder Procedures CTA CHEST (GATED) W IVCON CT ANGIOGRAPHY CHEST W/CONTRAST/NONCONTRAST Brain Nieves MD [address] [place] [address] Ct Imaging Referral ID Status Reason Start Date Expiration Date V isits Requested Visits Authorized [id number] Closed Auto-Generate d Referral 11/16/2022 12/16/2023 1 [...] ECG W/LEAST 12 LDS W/I&R Barbara Warner, [employer], DNP [address] [facility] [address] [place] [address] [facility] [place] [address] [place] [address] Referral ID Status Reason Start Date Expiration Date V isits Requested Visits Authorized [id number] Closed Auto-Generate d Referral 01/14/2023 01/14/2024 1 [...] effective. Reason Comments Medication Problem Patient Question Reason Onset Date Comments Refill Request 03/09/2024 Reason Comments Suspicious Skin Lesion Care Teams (unrecognized sec tion and content) Personnel Name: Raul DUMONT DO Address: Address: [address] [facility] [place], [place] [address] Team Status: Active Member Role Status Dates Raul Dumont DO Primary Care Provider Active Team Status: Inactive Member Role Status Dates Raul Dumont DO Primary Care Provider Active Start: November 04, 2023 End: November 04, 2023 Amy Adams APRN Attending Provider Active Start: November 04, 2023 End: November 04, 2023 Grade Teacher Relationship Specialty Start Date End Date Raul Dumont DO PCP - General 01/22/10 Floyd Spaulding MD [address] [address] Primary Staff Physician Cardiology 08/23/18 Team Status: Inactive Member Role Status Dates Raul Dumont DO Primary Care Provider Active Raghav Hubbard MD Attending Provider Active Grade Teacher Relationship Specialty Start Date End Date Raul Dumont DO PCP - General 01/22/10 Floyd Spaulding MD [address] [address] Primary Staff Physician Cardiology 08/23/18 Grade Teacher Relationship Specialty Start Date End Date Raul Dumont DO PCP - General 01/22/10 Floyd Spaulding MD [address] [address] Primary Staff Physician Cardiology 08/23/18 Grade Teacher Relationship Specialty Start Date End Date Raul Dumont DO PCP - General 01/22/10 Floyd Spaulding MD [address] [address] Primary Staff Physician Cardiology 08/23/18 Grade Teacher Relationship Specialty Start Date End Date Raul Dumont DO PCP - General 01/22/10 Floyd Spaulding MD [address] [address] Primary Staff Physician Cardiology 08/23/18 Grade Teacher Relationship Specialty Start Date End Date Raul Dumont DO PCP - General 01/22/10 Floyd Spaulding MD [address] [address] Primary Staff Physician Cardiology 08/23/18 Savanna Zhang MD [address] [address] Primary Staff Physician Cardiology 10/05/22 Grade Teacher Relationship Specialty Start Date End Date Raul Dumont, PCP - General 01/22/10 Floyd Spaulding MD [address] [address] Primary Staff Physician Cardiology 08/23/18 Savanna Zhang MD [address] [address] Primary Staff Physician Cardiology 10/05/22 Grade Teacher Relationship Specialty Start Date End Date Raul Dumont, DO PCP - General 01/22/10 Floyd Spaulding MD [address] [address] Primary Staff Physician Cardiology 08/23/18 Savanna Zhang MD [address] [address] Primary Staff Physician Cardiology 10/05/22 Grade Teacher Relationship Specialty Start Date End Date Raul Dumont, DO PCP - General 01/22/10 Floyd Spaulding MD [address] [address] Primary Staff Physician Cardiology 08/23/18 Savanna Zhang MD [address] [place] [address] Primary Staff Physician Cardiology 10/05/22 Grade Teacher Relationship Specialty Start Date End Date Navin Dumontory DO Jojo PCP - General 01/22/10 Floyd Spaulding MD [address] [address] Primary Staff Physician Cardiology 08/23/18 Savanna Zhang MD [address] [place] [address] Primary Staff Physician Cardiology 10/05/22 Grade Teacher Relationship Specialty Start Date End Date Raul Dumont DO PCP - General 01/22/10 Floyd Spaulding MD [address] [address] Primary Staff Physician Cardiology 08/23/18 Savanna Zhang MD [address] [address] Primary Staff Physician Cardiology 10/05/22 Brain Nieves MD [address] [place] [address] Surgeon Cardiac Surg 11/10/22 Grade Teacher Relationship Specialty Start Date End Date Raul Dumont DO PCP - General 01/22/10 Floyd Spaulding MD [address] [address] Primary Staff Physician Cardiology 08/23/18 Savanna Zhang MD [address] [place] [address] Primary Staff Physician Cardiology 10/05/22 Brain Nieves MD [address] [place] [address] Surgeon Cardiac Surg 11/10/22 Grade Teacher Relationship Specialty Start Date End Date Raul Dumont DO PCP - General 01/22/10 Floyd Spaulding MD [address] [facility] [address] [place] [address] Primary Staff Physician Cardiology 08/23/18 Savanna Zhang MD [address] [facility] [address] [place] [address] Primary Staff Physician Cardiology 10/05/22 Brain Nieves MD [address] [facility] [place] [address] Surgeon Cardiac Surg 11/10/22 Hay Jovel DO [address] [facility] [place] [address] Cardiology 11/17/22 Grade Teacher Relationship Specialty Start Date End Date Raul Dumont DO PCP - General 01/22/10 Floyd Spaulding MD [address] [address] Primary Staff Physician Cardiology 08/23/18 Savanna Zhang MD [address] [facility] [address] [place] [address] Primary Staff Physician Cardiology 10/05/22 Brain Nieves MD [address] [place] [address] Surgeon Cardiac Surg 11/10/22 Hay Jovel DO [address] [place] [address] Cardiology 11/17/22 Grade Teacher Relationship Specialty Start Date End Date Raul Dumont DO PCP - General 01/22/10 Floyd Spaulding MD [address] [address] Primary Staff Physician Cardiology 08/23/18 Savanna Zhang MD [address] [address] Primary Staff Physician Cardiology 10/05/22 Brain Nieves MD [address] [place] [address] Surgeon Cardiac Surg 11/10/22 Hay Jovel DO [address] [place] [address] Cardiology 11/17/22 Grade Teacher Relationship Specialty Start Date End Date Raul Dumont DO PCP - General 01/22/10 Floyd Spaulding MD [address] [address] Primary Staff Physician Cardiology 08/23/18 Savanna Zhang MD [address] [address] Primary Staff Physician Cardiology 10/05/22 Brain Nieves MD [address] [place] [address] Surgeon Cardiac Surg 11/10/22 Hay Jovel DO [address] [place] [address] Cardiology 11/17/22 Grade Teacher Relationship Specialty Start Date End Date Raul Dumont DO PCP - General 01/22/10 Floyd Spaulding MD [address] [place] [address] Primary Staff Physician Cardiology 08/23/18 Savanna Zhang MD [address] [place] [address] Primary Staff Physician Cardiology 10/05/22 Brain Nieves MD [address] [place] [address] Surgeon Cardiac Surg 11/10/22 Hay Jovel DO [address] [place] [address] Cardiology 11/17/22 Grade Teacher Relationship Specialty Start Date End Date Raul Dumont DO PCP - General 01/22/10 Floyd Spaulding MD [address] [address] Primary Staff Physician Cardiology 08/23/18 Savanna Zhang MD [address] [address] Primary Staff Physician Cardiology 10/05/22 Brain Nieves MD [address] [place] [address] Surgeon Cardiac Surg 11/10/22 Hay Jovel DO [address] [place] [address] Cardiology 11/17/22 Grade Teacher Relationship Specialty Start Date End Date Raul Dumont DO PCP - General 01/22/10 Floyd Spaulding MD [address] [address] Primary Staff Physician Cardiology 08/23/18 Savanna Zhang MD [address] [facility] [address] [place] [address] Primary Staff Physician Cardiology 10/05/22 Brain Nieves MD [address] [place] [address] Surgeon Cardiac Surg 11/10/22 Hay Jovel DO [address] [place] [address] Cardiology 11/17/22 Grade Teacher Relationship Specialty Start Date End Date Raul Dumont DO PCP - General 01/22/10 Floyd Spaulding MD [facility] [address] [place] [address] Primary Staff Physician Cardiology 08/23/18 Savanna Zhang MD [address] [place] [address] [address] [place] [address] Primary Staff Physician Cardiology 10/05/22 Brain Nieves MD [address] [place] [address] Surgeon Cardiac Surg 11/10/22 Hay Jovel DO [address] [place] [address] Cardiology 11/17/22 Grade Teacher Relationship Specialty Start Date End Date Raul Dumont DO PCP - General 01/22/10 Floyd Spaulding MD [address] [place] [address] [address] [place] [address] Primary Staff Physician Cardiology 08/23/18 Savanna Zhang MD [address] [facility] [address] [place] [address] Primary Staff Physician Cardiology 10/05/22 Brain Nieves MD [address] [place] [address] Surgeon Cardiac Surg 11/10/22 Hay Jovel DO [address] [place] [address] Cardiology 11/17/22 Grade Teacher Relationship Specialty Start Date End Date Raul Dumont DO PCP - General 01/22/10 Floyd Spaulding MD [address] [facility] [address] [place] [address] Primary Staff Physician Cardiology 08/23/18 Savanna Zhang MD [address] [facility] [address] [place] [address] Primary Staff Physician Cardiology 10/05/22 Brain Nieves MD [address] [place] [address] Surgeon Cardiac Surg 11/10/22 Hay Jovel DO [address] [place] [address] Cardiology 11/17/22 Grade Teacher Relationship Specialty Start Date End Date Raul Dumont DO PCP - General 01/22/10 Floyd Spaulding MD [address] [address] Primary Staff Physician Cardiology 08/23/18 Savanna Zhang MD [address] [address] Primary Staff Physician Cardiology 10/05/22 Brain Nieves MD [address] [place] [address] Surgeon Cardiac Surg 11/10/22 Hay Jovle DO [address] [place] [address] Cardiology 11/17/22 Grade Teacher Relationship Specialty Start Date End Date Raul Dumont DO PCP - General 01/22/10 Floyd Spaulding MD [address] [address] Primary Staff Physician Cardiology 08/23/18 Savanna Zhang MD [address] [address] Primary Staff Physician Cardiology 10/05/22 Brain Nieves MD [address] [place] [address] Surgeon Cardiac Surg 11/10/22 Hay Jovel DO [address] [place] [address] Cardiology 11/17/22 Grade Teacher Relationship Specialty Start Date End Date Raul Dumont DO PCP - General 01/22/10 Floyd Spaulding MD [address] [place] [address] Primary Staff Physician Cardiology 08/23/18 Savanna Zhang MD [address] [place] [address] Primary Staff Physician Cardiology 10/05/22 Brain Nieves MD [address] [place] [address] Surgeon Cardiac Surg 11/10/22 Hay Jovel DO [address] [place] [address] Cardiology 11/17/22 Grade Teacher Relationship Specialty Start Date End Date Raul Dumont DO PCP - General 01/22/10 Floyd Spaulding MD [address] [place] [address] Primary Staff Physician Cardiology 08/23/18 Savanna Zhang MD [address] [place] [address] Primary Staff Physician Cardiology 10/05/22 Brain Nieves MD [address] [place] [address] Surgeon Cardiac Surg 11/10/22 Hay JovelDO [address] [place] [address] Cardiology 11/17/22 Grade Teacher Relationship Specialty Start Date End Date Julia Raul UribeDO PCP - General 01/22/10 Floyd Spaulding MD [address] [place] [address] Primary Staff Physician Cardiology 08/23/18 Savanna Zhang MD [address] [address] Primary Staff Physician Cardiology 10/05/22 Brain Nieves MD [address] [place] [address] Surgeon Cardiac Surg 11/10/22 Med HayDO [address] [place] [address] Cardiology 11/17/22 Grade Teacher Relationship Specialty Start Date End Date Navin Dumontsam UribeDO PCP - General 01/22/10 Floyd Spaulding MD [address] [place] [address] Primary Staff Physician Cardiology 08/23/18 Savanna Zhang MD [address] [facility] [address] [place] [address] Primary Staff Physician Cardiology 10/05/22 Brain Nieves MD [address] [place] [address] Surgeon Cardiac Surg 11/10/22 Hay Jovel DO [address] [facility] [place] [address] Cardiology 11/17/22 Grade Teacher Relationship Specialty Start Date End Date Raul Dumont DO PCP - General 01/22/10 Floyd Spaulding MD [address] [place] [address], [facility] [place] [address] Primary Staff Physician Cardiology 08/23/18 Savanna Zhang MD [address] [place] [address] II, [address] [place] [address] Primary Staff Physician Cardiology 10/05/22 Brain Nieves MD [address] [place] [address] Surgeon Cardiac Surg 11/10/22 Hay Jovel DO [address] [place] [address] Cardiology 11/17/22 Grade Teacher Relationship Specialty Start Date End Date Raul Dumont DO PCP - General 01/22/10 Floyd Spaulding MD [address] [place] [address], [address], [address] [place] [address] Primary Staff Physician Cardiology 08/23/18 Savanna Zhang MD [address] [place] [address] RD, [facility] II, [address] [place] [address] Primary Staff Physician Cardiology 10/05/22 Brain Nieves MD [address] [facility] [address] Surgeon Cardiac Surg 11/10/22 Hay Jovel DO [address] [place] [address] Cardiology 11/17/22 Grade Teacher Relationship Specialty Start Date End Date Raul Dumont DO PCP - General 01/22/10 [place] [address] [place] [address] II, [address] [place] [address] Primary Staff Physician Cardiology 08/23/18 [place] [address] [place] [address] II, [address] [place] [address] Primary Staff Physician Cardiology 10/05/22 Brain Nieves MD [address] [place] [address] Surgeon Cardiac Surg 11/10/22 Hay Jovel DO [address] [place] [address] Cardiology 11/17/22 Grade Teacher Relationship Specialty Start Date End Date Raul Dumotn DO PCP - General 01/22/10 Floyd Spaulding MD [address] [place] [address] RD, [facility] II, [address] [place] [address] Primary Staff Physician Cardiology 08/23/18 Savanna Zhang MD [address] [facility], [facility] II, [address] [place] [address] Primary Staff Physician Cardiology 10/05/22 Brain Nieves MD [address] [place] [address] Surgeon Cardiac Surg 11/10/22 Hay Jovel DO [address] [place] [address] Cardiology 11/17/22 Grade Teacher Relationship Specialty Start Date End Date Raul Dumont DO PCP - General 01/22/10 Floyd Spaulding MD [address] [facility], [facility] II, [address] [place] [address] Primary Staff Physician Cardiology 08/23/18 Savanna Zhang MD [address] [facility] II, [address] [place] [address] Primary Staff Physician Cardiology 10/05/22 Brain Nieves MD [address] [place] [address] Surgeon Cardiac Surg 11/10/22 Hay Jovel DO [address] [place] [address] Cardiology 11/17/22 Grade Teacher Relationship Specialty Start Date End Date Raul Dumont DO PCP - General 01/22/10 Floyd Spaulding MD [address] [facility], [address], [address] [place] [address] Primary Staff Physician Cardiology 08/23/18 Savanna Zhang MD [address] [facility], [address], [address] [place] [address] Primary Staff Physician Cardiology 10/05/22 Brain Nieves MD [address] [place] [address] Surgeon Cardiac Surg 11/10/22 Hay Jovel DO [address] [place] [address] Cardiology 11/17/22 Grade Teacher Relationship Specialty Start Date End Date Raul Dumont DO PCP - General 01/22/10 Floyd Spaulding MD [address] [facility], [facility] II, [address] [place] [address] Primary Staff Physician Cardiology 08/23/18 Savanna Zhang MD [address] [facility], [address], [address] [place] [address] Primary Staff Physician Cardiology 10/05/22 Brain Nieves MD [address] [place] [address] Surgeon Cardiac Surg 11/10/22 Hay Jovel DO [address] [place] [address] Cardiology 11/17/22 Grade Teacher Relationship Specialty Start Date End Date Raul Dumont MD [address] [place] [address] PCP - General Us Administrative Law Judge 03/18/23 Grade Teacher Relationship Specialty Start Date End Date Raul Dumont MD [address] [place] [address] PCP - General Us Administrative Law Judge 03/18/23 Goals (unrecognized section and content) Goals may be documented in a n alternate section No data available for this section No data available for this section No data available for this section No data available for this sectionNo Information No data available for this sectionNo InformationGoals may be documented in an alternate section No data available for this section FOR RECORDS PERTAINING TO PATIENTS WHO [...] BE BASED ON THE PRIMARY CLINICAL RECORDS. [employer] provides no warranty or guarantee of the accuracy or completeness of information in this document.
--- NOTE | 2024-05-26 17:58 | XR_ITS ---
The [address] [address] Patient Name: VERONICA CORONEL MRN: [id number] date: 1940 Sex: M Assigned Patient Location: Current Patient Location: Accession/Order Number: [id number] Exam Date: 05/26/2024 18:23 Report Date: 05/26/2024 21:16 At the request of: NESS LARSEN Procedure: XR ribs BI min 4V w CXR1V EXAM: XR ribs BI min 4V w CXR1V HISTORY: pain, fall COMPARISON: None. FINDINGS: Frontal radiograph of the chest in 4 radiographs of the ribs were obtained. No focal consolidation, pleural effusion or pneumothorax. There is pulmonary vascular congestion. Heart is enlarged. Median sternotomy wires are intact. Patient is status post aortic valve replacement. No displaced rib fracture. Degenerative changes to the spine and shoulders. Punctate round hyperdensities project over the right chest, likely external to the patient. XR/XR ribs BI min 4V w CXR1V IMPRESSION: No focal consolidation, pleural effusion or pneumothorax. Pulmonary vascular congestion. No displaced rib fracture. Cardiomegaly. Electronically authenticated by: DALTON TURPIN Date: 05/26/2024 21:16
--- NOTE | 2024-05-26 17:59 | ECG_ITS ---
The [facility] Test Date: 2024-05-26 Pat Name: VERONICA CORONEL Department: Room: - Gender: Male Director Of Academic Support: : 1940 Requested By: Order Number: [id number] Reading MD: CAM WHITE Measurements Intervals [place] Rate: 73 P: 60 NH: 190 QRS: -65 QRSD: 98 T: 60 QT: 404 QTc: 430 Interpretive Statements 1100 Sinus rhythm 1470 with occasional supraventricular premature complexes 7200 Abnormal left axis deviation 9140 abnormal rhythm ECG Compared to ECG 02/04/2024 20:55:43 No significant changes Electronically Signed On 05-27-2024 7:58:18 EST by CAM WHITE
--- NOTE | 2024-05-26 18:19 | ED.FALL1 ---
Documented by User: Amy Aaron 05/26/24 20:06 HPI HPI - Fall General Chief Complaint: Fall Stated Complaint: FALL, CP Time Seen by Provider: 05/26/24 17:58 Source: patient and family Mode of arrival: walk-in Limitations: no limitations History of Present Illness HPI Narrative: 83-year-old with a history of Parkinson disease presents here with chief complaint of chest wall tenderness in the front. Patient's son is at bedside and patient states that he had complained of some chest wall pain after he fell 2 days ago. He has no crepitus or bruising noted. Denies striking his head. Patient is alert. He does have a history of short-term dementia per family and history of patient himself. He has 2 small bruises noted to both shoulders. He does have a history of having a recent injection of the right shoulder. He is currently on blood thinners. Patient does have a cardiac history but has no pain at this time. Otherwise in no acute distress Related Data Home Medications ?Medication ?Instructions ?Recorded ?Confirmed carbidopa 10 mg-levodopa 100 mg 1 tab 02/04/24 tablet escitalopram oxalate 10 mg tablet 10 mg 02/04/24 finasteride 5 mg tablet 5 mg 02/04/24 losartan 25 mg tablet 25 mg 02/04/24 melatonin 5 mg capsule mg 02/04/24 metoprolol succinate 25 mg 25 mg PO 02/04/24 tablet,extended release 24 hr pantoprazole 40 mg tablet,delayed 40 mg PO 02/04/24 release rivaroxaban 20 mg tablet (Xarelto) 20 mg 02/04/24 Allergies Allergy/AdvReac Type Severity Reaction Status Date / Time Sulfa (Sulfonamide Allergy Unknown Unknown Verified 05/26/24 17:51 Antibiotics) Opioid HPI Opioid Management Most Recent Pain and Opioid Data: No Data to Display Review of Systems ROS Narrative My ROS Exam Narrative Exam Narrative: All Systems are negative except as noted/marked.All systems reviewed and otherwise negative Nurses note and vital signs reviewed and patient is not hypoxic. General: The patient appears well and in no apparent distress. Patient is resting comfortably on cart. Skin: Warm, dry, no pallor noted. There is no rash noted. Head: Normocephalic, atraumatic Eye: Normal conjunctiva, no drainage, EOMI. PERRL Ears, Nose, Mouth, and Throat: oral mucosa is moist. Nares patent. Mouth without vesicles. Ear canals patent. Tm's without Erythema Cardiovascular: Regular Rate and Rhythm Respiratory: Patient is in no distress, no accessory muscle use, lungs are clear to auscultation, no wheezing, rales or rhonchi Back: non-tender, no CVA tenderness bilaterally to percussion. GI: Normal bowel sounds, no tenderness to palpation, no masses appreciated. No rebound, guarding, or rigidity noted. Musculoskeletal: The patient has no evidence of calf tenderness, no pitting edema, symmetrical pulses noted bilaterally Neurological: A&O x4, normal speech Psychiatric: Cooperative Constitutional Vital Signs, click to edit/add: Last Vital Signs Temp 98.1 F 05/26/24 17:53 Pulse 73 05/26/24 19:40 Resp 19 05/26/24 19:40 BP 160/98 H 05/26/24 17:53 Pulse Ox 99 05/26/24 17:53 O2 Del Method Room Air 05/26/24 17:53 Course Vital Signs Vital signs: Vital Signs Pulse Oximetry 92 L 05/26/24 17:52 Temperature 98.1 F 05/26/24 17:53 Pulse Rate 73 05/26/24 19:40 Respiratory Rate 19 05/26/24 19:40 Blood Pressure 160/98 H 05/26/24 17:53 Pulse Oximetry 99 05/26/24 17:53 Oxygen Delivery Method Room Air 05/26/24 17:53 MDM - Fall MDM Narrative Medical decision making narrative: 83-year-old with a history of Parkinson disease presents here with chief complaint of chest wall tenderness in the front. Patient's son is at bedside and patient states that he had complained of some chest wall pain after he fell 2 days ago. He has no crepitus or bruising noted. Denies striking his head. Patient is alert. He does have a history of short-term dementia per family and history of patient himself. He has 2 small bruises noted to both shoulders. He does have a history of having a recent injection of the right shoulder. He is currently on blood thinners. Patient does have a cardiac history but has no pain at this time. Otherwise in no acute distress Patient presented here with chief complaint of chest wall pain x-ray shows no acute deformity no pneumothorax. Patient did have a cardiac history troponin and other blood work was also performed and is negative today. Patient has family members at patient be able to discharge home with chest wall contusion, pain bedside and states patient was concerned because he had fallen on his chest. He becomes anxious when he gets I thought into his head and wanted to be evaluated. Patient looks good here no acute distress. Differential Diagnosis Differential diagnosis: Likely other (Chest wall pain, contusion) Medical Records Attestation: I reviewed the patient's medical records. Lab Data Attestation: I reviewed the patient's lab results. Labs: Lab Results 05/26/24 Range/Units 18:22 WBC 4.7 (4.0-11.0) 10^3/uL RBC 4.13 L (4.70-6.10) 10^6/uL Hgb 12.2 L (14.0-18.0) g/dL Hct 38.2 L (42.0-54.0) % MCV 92.5 (80.0-94.0) fL MCH 29.5 (25.9-34.0) pg MCHC 31.9 (29.9-35.2) g/dL RDW 14.1 (11.0-15.0) % Plt Count 162 (150-450) 10^3/uL MPV 9.0 L (9.5-13.5) fL Neut % (Auto) 67.8 (43.0-75.0) % Lymph % (Auto) 18.3 L (20.5-60.0) % Garfield % (Auto) 11.0 (1.7-12.0) % Eos % (Auto) 1.9 (0.9-7.0) % Baso % (Auto) 0.6 (0.2-2.0) % Neut # (Auto) 3.2 (1.4-6.5) 10^3/uL Lymph # (Auto) 0.9 L (1.2-3.8) 10^3/uL Garfield # (Auto) 0.5 (0.3-0.8) 10^3/uL Eos # (Auto) 0.1 (0.0-0.7) 10^3/uL Baso # (Auto) 0.0 (0.0-0.1) 10^3/uL Abs Immat Gran (auto) 0.02 (0.00-0.03) 10^3/uL Imm/Tot Granulo (auto) 0.4 (0.0-0.5) % PT 10.6 (9.0-11.6) sec INR 1.00 APTT 27.5 (22.3-36.2) sec Sodium 140 (136-145) mmol/L Potassium 4.4 (3.5-5.1) mmol/L Chloride 103 (98-107) mmol/L Carbon Dioxide 29.1 (21.0-32.0) mmol/L Anion Gap 12.3 BUN 31.0 H (7.0-18.0) mg/dL Creatinine 1.16 (0.70-1.30) mg/dL Est GFR ( Amer) >60 (>=60 mL/min/1.73m^2) Est GFR (Non-Af Amer) 60 (>=60 mL/min/1.73m^2) BUN/Creatinine Ratio 26.7 Glucose 101 (74-106) mg/dL Calcium 8.8 (8.5-10.1) mg/dL Total Bilirubin 0.3 (0.2-1.0) mg/dL AST 24 (15-37) U/L ALT 22 (16-63) U/L Alkaline Phosphatase 98 (46-116) U/L Troponin I High Sens 20.8 (4.0-76.1) pg/mL Total Protein 6.6 (6.4-8.2) g/dL Albumin 3.6 (3.4-5.0) g/dL Globulin 3.0 g/dL Albumin/Globulin Ratio 1.2 ECG Data Interpretation: 181 initial rhythm with a rate of 73 bpm, IN interval 190 ms QRS duration 98, no stemi Discharge Plan Discharge Chief Complaint: Fall Clinical Impression: Chest wall pain Patient Disposition: Home, Self-Care Condition: Good Prescriptions / Home Meds: No Action carbidopa-levodopa 10-100 mg tablet 1 tab metoprolol succinate 25 mg tablet extended release 24 hr 25 mg PO melatonin 5 mg capsule pantoprazole 40 mg tablet,delayed release (DR/EC) 40 mg PO losartan 25 mg tablet 25 mg finasteride 5 mg tablet 5 mg escitalopram oxalate 10 mg tablet 10 mg Xarelto 20 mg tablet 20 mg Print Language: Bahraini Instructions: Chest Wall Pain (ED) Referrals: RAUL DUMONT [Primary Care Provider] - 1 week Discharge Date/Time: 05/26/24 19:46 Documented by User: Td Mendoza MD 05/26/24 20:16 HPI HPI - Fall General Chief Complaint: Fall Stated Complaint: FALL, CP Time Seen by Provider: 05/26/24 17:58 Related Data Home Medications ?Medication ?Instructions ?Recorded ?Confirmed carbidopa 10 mg-levodopa 100 mg 1 tab 02/04/24 tablet escitalopram oxalate 10 mg tablet 10 mg 02/04/24 finasteride 5 mg tablet 5 mg 02/04/24 losartan 25 mg tablet 25 mg 02/04/24 melatonin 5 mg capsule mg 02/04/24 metoprolol succinate 25 mg 25 mg PO 02/04/24 tablet,extended release 24 hr pantoprazole 40 mg tablet,delayed 40 mg PO 02/04/24 release rivaroxaban 20 mg tablet (Xarelto) 20 mg 02/04/24 Allergies Allergy/AdvReac Type Severity Reaction Status Date / Time Sulfa (Sulfonamide Allergy Unknown Unknown Verified 05/26/24 17:51 Antibiotics) Opioid HPI Opioid Management Most Recent Pain and Opioid Data: No Data to Display Exam Constitutional Vital Signs, click to edit/add: Last Vital Signs Temp 98.1 F 05/26/24 17:53 Pulse 73 05/26/24 19:40 Resp 19 05/26/24 19:40 BP 160/98 H 05/26/24 17:53 Pulse Ox 99 05/26/24 17:53 O2 Del Method Room Air 05/26/24 17:53 Course Vital Signs Vital signs: Vital Signs Pulse Oximetry 92 L 05/26/24 17:52 Temperature 98.1 F 05/26/24 17:53 Pulse Rate 73 05/26/24 19:40 Respiratory Rate 19 05/26/24 19:40 Blood Pressure 160/98 H 05/26/24 17:53 Pulse Oximetry 99 05/26/24 17:53 Oxygen Delivery Method Room Air 05/26/24 17:53 MDM - Fall MDM Narrative Medical decision making narrative: 83-year-old with a history of Parkinson disease presents here with chief complaint of chest wall tenderness in the front. Patient's son is at bedside and patient states that he had complained of some chest wall pain after he fell 2 days ago. He has no crepitus or bruising noted. Denies striking his head. Patient is alert. He does have a history of short-term dementia per family and history of patient himself. He has 2 small bruises noted to both shoulders. He does have a history of having a recent injection of the right shoulder. He is currently on blood thinners. Patient does have a cardiac history but has no pain at this time. Otherwise in no acute distress Patient presented here with chief complaint of chest wall pain x-ray shows no acute deformity no pneumothorax. Patient did have a cardiac history troponin and other blood work was also performed and is negative today. Patient has family members at patient be able to discharge home with chest wall contusion, pain bedside and states patient was concerned because he had fallen on his chest. He becomes anxious when he gets I thought into his head and wanted to be evaluated. Patient looks good here no acute distress. I, Dr Mendoza, have reviewed the above progress note and course of action in the ER; agree with the above. I have gone over history and physical, and discussed disposition and treatment plan with the patient. Lab Data Labs: Lab Results 05/26/24 Range/Units 18:22 WBC 4.7 (4.0-11.0) 10^3/uL RBC 4.13 L (4.70-6.10) 10^6/uL Hgb 12.2 L (14.0-18.0) g/dL Hct 38.2 L (42.0-54.0) % MCV 92.5 (80.0-94.0) fL MCH 29.5 (25.9-34.0) pg MCHC 31.9 (29.9-35.2) g/dL RDW 14.1 (11.0-15.0) % Plt Count 162 (150-450) 10^3/uL MPV 9.0 L (9.5-13.5) fL Neut % (Auto) 67.8 (43.0-75.0) % Lymph % (Auto) 18.3 L (20.5-60.0) % Garfield % (Auto) 11.0 (1.7-12.0) % Eos % (Auto) 1.9 (0.9-7.0) % Baso % (Auto) 0.6 (0.2-2.0) % Neut # (Auto) 3.2 (1.4-6.5) 10^3/uL Lymph # (Auto) 0.9 L (1.2-3.8) 10^3/uL Garfield # (Auto) 0.5 (0.3-0.8) 10^3/uL Eos # (Auto) 0.1 (0.0-0.7) 10^3/uL Baso # (Auto) 0.0 (0.0-0.1) 10^3/uL Abs Immat Gran (auto) 0.02 (0.00-0.03) 10^3/uL Imm/Tot Granulo (auto) 0.4 (0.0-0.5) % PT 10.6 (9.0-11.6) sec INR 1.00 APTT 27.5 (22.3-36.2) sec Sodium 140 (136-145) mmol/L Potassium 4.4 (3.5-5.1) mmol/L Chloride 103 (98-107) mmol/L Carbon Dioxide 29.1 (21.0-32.0) mmol/L Anion Gap 12.3 BUN 31.0 H (7.0-18.0) mg/dL Creatinine 1.16 (0.70-1.30) mg/dL Est GFR ( Amer) >60 (>=60 mL/min/1.73m^2) Est GFR (Non-Af Amer) 60 (>=60 mL/min/1.73m^2) BUN/Creatinine Ratio 26.7 Glucose 101 (74-106) mg/dL Calcium 8.8 (8.5-10.1) mg/dL Total Bilirubin 0.3 (0.2-1.0) mg/dL AST 24 (15-37) U/L ALT 22 (16-63) U/L Alkaline Phosphatase 98 (46-116) U/L Troponin I High Sens 20.8 (4.0-76.1) pg/mL Total Protein 6.6 (6.4-8.2) g/dL Albumin 3.6 (3.4-5.0) g/dL Globulin 3.0 g/dL Albumin/Globulin Ratio 1.2 Discharge Plan Discharge Chief Complaint: Fall Clinical Impression: Chest wall pain Patient Disposition: Home, Self-Care Condition: Good Prescriptions / Home Meds: No Action carbidopa-levodopa 10-100 mg tablet 1 tab metoprolol succinate 25 mg tablet extended release 24 hr 25 mg PO melatonin 5 mg capsule pantoprazole 40 mg tablet,delayed release (DR/EC) 40 mg PO losartan 25 mg tablet 25 mg finasteride 5 mg tablet 5 mg escitalopram oxalate 10 mg tablet 10 mg Xarelto 20 mg tablet 20 mg Print Language: Bahraini Instructions: Chest Wall Pain (ED) Referrals: RAUL DUMONT [Primary Care Provider] - 1 week Discharge Date/Time: 05/26/24 19:46
[2024-05-26 18:34] LABS: Basophils Percent Auto 0.6 % (0.2-2.0); Eosinophils Absolute Auto 0.1 10^3/uL (0.0-0.7); Eosinophils Percent Auto 1.9 % (0.9-7.0); Hematocrit 38.2 % (42.0-54.0); Hemoglobin 12.2 g/dL (14.0-18.0); Immature Granulocytes Abs Auto 0.02 10^3/uL (0.00-0.03); Immature Granulocytes Pct Auto 0.4 % (0.0-0.5); Lymphocytes Absolute Auto 0.9 10^3/uL (1.2-3.8); Lymphocytes Percent Auto 18.3 % (20.5-60.0); Mean Corpuscular HGB Conc 31.9 g/dL (29.9-35.2); Mean Corpuscular Hemoglobin 29.5 pg (25.9-34.0); Mean Corpuscular Volume 92.5 fL (80.0-94.0); Monocytes Absolute Auto 0.5 10^3/uL (0.3-0.8); Neutrophils Absolute Auto 3.2 10^3/uL (1.4-6.5); Neutrophils Percent Auto 67.8 % (43.0-75.0); Platelet Count 162 10^3/uL (150-450); Red Blood Count 4.13 10^6/uL (4.70-6.10); Red Cell Distribution Width 14.1 % (11.0-15.0); White Blood Count 4.7 10^3/uL (4.0-11.0)
[2024-05-26 18:50] LABS: Partial Thromboplastin Time 27.5 sec (22.3-36.2); Prothrombin Time 10.6 sec (9.0-11.6)
[2024-05-26 18:58] LABS: Alanine Aminotransferase 22 U/L (16-63); Albumin Globulin Ratio 1.2; Albumin Level 3.6 g/dL (3.4-5.0); Alkaline Phosphatase 98 U/L (46-116); Anion Gap 12.3; Aspartate Amino Transferase 24 U/L (15-37); BUN Creatinine Ratio 26.7; Bilirubin Total 0.3 mg/dL (0.2-1.0); Calcium 8.8 mg/dL (8.5-10.1); Carbon Dioxide 29.1 mmol/L (21.0-32.0); Chloride 103 mmol/L (98-107); Estimated GFR (African America >60 (>=60 mL/min/1.73m^2); Estimated GFR (Non-African Ame 60 (>=60 mL/min/1.73m^2); Glucose 101 mg/dL (74-106); Potassium 4.4 mmol/L (3.5-5.1); Sodium 140 mmol/L (136-145); Total Protein 6.6 g/dL (6.4-8.2); Troponin I High Sensitivity 20.8 pg/mL (4.0-76.1)
== END 2024-05-26 19:46 | disposition home or self-care (01) ==
PROVIDERS: Physician Assistant; Emergency Provider Emergency Medicine; PCP Family Medicine
DX: R07.89 Other chest pain (principal); Z95.2 Presence of prosthetic heart valve; G20.A1 Parkinson's disease without dyskinesia, without mention of fluctuations; F03.90 Unspecified dementia, unspecified severity, without behavioral disturbance, psychotic disturbance, mood disturbance, and anxiety; Z91.81 History of falling
CPT/HCPCS: 36415; 71111; 80053; 84484; 85025; 85610; 85730; 93005; 99285

== ENCOUNTER 2024-07-05 17:36 | Emergency (ER) | payer MEDICARE, BC, SELFPAY ==
[2024-07-05 17:40] VITALS: BP 168/90; PULSE 82; TEMP 36.8; O2SAT 98; BMI 28.8
--- OUTSIDE RECORDS SUMMARY | 2024-07-05 17:42 | XMS_ITS | CCD ---
Author Organization [facility] Care Team Providers Care Database Designer Name Role Phone Raul Dumont DO Primary Care Provider Floyd Spaulding MD Unavailable [phone] DUMONT Primary Care Unavailable BENEDICT, [...] Primary Care Provider Floyd Spaulding MD Unavailable Raul DUMONT Primary Care Physician Raul Dumont DO Primary Care Provider Floyd Spaulding MD Unavailable Savanna Zhang MD Unavailable Brain Nieves MD Unavailable Hay Jovel DO Unavailable Floyd Spaulding MD Unavailable Savanna [...] Unavailable JULIA, RAUL Uribe Primary Care Unavailable IVONNE GRANT Attending Unavailable Jh Rosario Attending Unavailable JULIA, Raul Uribe Attending Unavailable MP MARTINEZ Attending Unavailable CHAITANYA WATKINS Attending Unavailable JULIA, RAUL Uribe Primary Care Unavailable ADELINE Santiago, FLOYD Attending Unavailable ADELINE Santiago, FLOYD Referring Unavailable JULIA, RAUL S Primary Care Unavailable CHAITANYA WATKINS Attending Unavailable SELF Referring Unavailable JULIA, RAUL S Primary Care Unavailable CHAITANYA WATKINS Attending Unavailable JULIA, RAUL S Primary Care Unavailable CHAITANYA WATKINS Attending Unavailable SELF Referring Unavailable JULIA, RAUL Uribe Primary Care Unavailable Raul Dumont MD Primary Care Provider [phone] DELBERT HAWKINS Attending Unavailab RAUL Cam Referring Unavailable PARADISE TYLER Attending Unavailable REBEKAH MARQUEZ Attending Unavailable PARADISE TYLER Attending Unavailable Allergies Allergy Classification Reported Allergen(s) Allergy Type Date of Onset Reaction(s) Facility (20 sources) Grass pollen; Translations: [GRASS POLLEN] Drug Allergy 7 Unknown [facility] (20 sources) Mometasone; Translations: [MOMETASONE] Drug Allergy 4 Other: See Comments [facility] Work Phone: (20 sources) predniSONE; Translations: [prednisone] Drug Allergy 3 Mental Status Change [facility] (20 sources) Sulfonamides (Antibiotic); Translations: [SULFA (SULFONAMIDE ANTIBIOTICS)] Drug Allergy 6 Unknown [facility] Work Phone: (1 source) Sulfonamides (Antibiotic) Drug allergy (disorder) 7 [facility] (7 sources) Sulfamethoxazole; Translations: [sulfamethoxazole ] Drug Allergy [facility] (6 sources) Azithromycin Drug Allergy 3 Rash [facility] Work Phone: Medications Current Medications Medication Drug Class(es) Dates Sig (Normalized) Sig (Original) acetaminophen 325 mg oral tablet (20 sources) Start: 12-09-2022 take 2 tablets by mouth every four hours as needed acetaminophen (Tylenol) 325 MG tablet Take 650 mg by mouth every 4 (four) hours if needed. 12/09/2022 Active Start: 06-25-2020 End: 12-03-2022 take [...] dale, Topical, BID, 24 gram, Refill(s) 1, [facility]/pharmacy #[id number], 178, cm, 10/21/22 10:47:00 EDT, Height/Length Dosing, 91.4, kg, 10/21/22 10:47:00 EDT, Weight Dosing Start Date: 10/21/22 Status: Ordered Start: 07-20-2022 clotrimazole T op 1% Crm 1 dale, Topical, BID, 24 gram, Refill(s) 1, [facility]/pharmacy #[id number], 178, cm, 07/20/22 14:05:00 EST, Height/Length Dosing, 91.3, kg, 07/20/22 14:05:00 EST, Weight Dosing Start Date: 07/20/22 Status: Ordered Co Q-10 (6 sources) Start: 10-20-2018 take 1 tablet by mouth once daily Co Q-10 See Instructions, 1 tab po daily, Refills(s) 0 Start Date: 10/20/18 Status: Ordered diazePAM 2 mg oral tablet (6 sources) Benzodiazepine Start: 12-23-2021 diazePAM (Valium) 2 MG tablet TAKE 1 TABLET BY MOUTH 30 MINUTES PRIOR TO MRI 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 12/16/2022 Active Start: 12-16-2022 take 1 capsule by [facility] every twelve hours as needed docusate sodium (COLACE) 100 mg capsule Take 1 capsule by mouth twice daily as needed for constipation. 12/16/2022 Active Comment on above: Take 1 capsule by mo [facility] twice daily as needed for constipation. docusate sodium 50 mg / sennosides, assisted 8.6 mg oral tablet (12 sources) Start: 12-09-2022 take 1 tablet by [...] Daily, # 30 tab(s), Refills(s) 3, Pharmacy: [id number], 178, cm, 03/12/20 10:12:00 EDT, Height/Length Dosing, 89.6, kg, 03/12/20 10:12:00 EDT, Weight Dosing Start Date: 03/19/20 Status: Ordered Comment on above: TAKE 1 TABLET BY TASHA TH ONE TIME A DAY finasteride 5 mg oral tablet (20 sources) 5-alpha Reductase Inhibitor Start: 0 finasteride (Proscar) 5 MG tablet 1 (one) time each day at the same time. 06/30/2022 Active furosemide 20 mg oral tablet (20 sources) Loop Diuretic Start: 3 End: 3 take 1 tablet by mouth in the morning furosemide (Lasix) 20 MG tablet Take 20 mg by mouth in the morning. 12/09/2022 Active Comment on above: Take 1 [...] Daily, # 90 tab(s), Refills(s) 1, Pharmacy: [facility]/pharmacy #[id number], 178, cm, 10/21/22 10:47:00 EDT, Height/Length Dosing, 91.4, kg, 10/21/22 10:47:00 EDT, Weight Dosing Start Date: 01/05/23 Status: Ordered Comment on above: Take 25 mg by mouth once daily. lysine 500 mg oral tablet (20 sources) lysine 500 mg ta b Take by mouth. Active Comment on above: Take by mouth. magnesium hydroxide 80 mg/ml oral suspension (9 sources) Start: 3 magnesium hydroxide (Milk of [...] as needed. melatonin 5 mg oral tablet (12 sources) Start: 10-28-2022 take 1 tablet by mouth once daily at bedtime melatonin 5 mg oral tablet 5 mg = 1 tab(s), Oral, Once a day (at bedtime), # 90 tab(s), Refills(s) 1, Pharmacy: [facility]/pharmacy #[id number], 178, cm, 10/21/22 10:47:00 EDT, Height/Length Dosing, 91.4, kg, 10/21/22 10:47:00 EDT, Weight Dosing Start Date: 10/28/22 Status: Ordered Start: 04-22-2022 Melatonin 20 m g, Once a day (at bedtime), Refills(s) 0 Start Date: 04/22/22 Status: Ordered Start: 03-24-2022 take 1 tablet by tasha th at bedtime [facility] Melatonin 3 MG tablet Take 3 mg by mouth at bedtime. 03/24/2022 Active memantine hydrochloride 5 mg oral tablet (1 source) O-gcyxwo-U-aspartate Receptor Antagonist Start: 11-04-2023 take 5 mg [...] once daily. Take 2 tablets by mo [facility] once daily. MULTIVITAMIN ORAL (20 [...] 1 tablet by tasha th once daily Pantoprazole [address] Tab 40 mg = 1 tab(s), Oral, Daily, # 90 tab(s), Refills(s) 3, Pharmacy: [facility]/pharmacy #[id number], 178, cm, 02/02/22 10:46:00 EDT, Height/Length Dosing, 86.8, kg, 02/02/22 10:46:00 EDT, Weight Dosing Start Date: 04/17/22 Status: Ordered Comment on above: Take 1 tablet by tasha once daily. potassium chloride 10 meq extended release oral tablet (10 sources) Start: 12-10-19 End: 12-17-19 23 take 1 tablet by mouth once daily [...] (20 sources) Factor Xa Inhibitor Start: 02-11-20 End: 03-09-20 24 take 1 tablet by mouth once daily Xarelto 20 MG tablet TAKE 1 TABLET BY MOUTH ONCE DAILY. PLEASE CALL THE OFFICE FOR AN APPOINTMENT. 04/13/2022 Active Comment on above: TAKE 1 TABLET BY TASHA ONCE DAILY. PLEASE CALL THE OFFICE FOR AN APPOINTMENT. Take 1 tablet by tasha once daily. UBIDECARENONE (CO Q-10 ORAL) (20 [...] 1 tablet by tasha th once daily. fluticasone propionate 0.05 mg/actuat metered [...] 2017 12:00am July 23, 2018 11:55pm mag jxsqc-H5-ikeoxgia rt xt 500-3,000-150 mg-unit-mg tab (18 sources) End: 01-14-2023 mag kqmwg-K0-jzgvrbvd rt xt 500-3,000-150 mg-unit-mg tab Take by mouth. 0 01/14/2023 Discontinued mag ogifb-W1-iwe meric rt xt 500-3,000-150 mg-unit-mg tab Take [...] 10 mL injection (DEFINITY) polyethylene glycol 3350 04770 mg powder for oral solution (9 sources) [...] topically BID to affected area as needed, [facility]/pharmacy #[id number], 177.8, cm, 07/16/20 10:42:00 EST, Height/Length [...] limb, including shoulder] Onset: 1 06-19-2020 Chronic Melanomas of skin (2 sources) History of malignant melanoma of the skin; Translations: [Personal history of malignant melanoma of skin] 06-22-2024 Episodic Mycoses (9 sources) Onychomycosis; Translations: [Tinea unguium] Episodic Nausea and vomiting (2 sources) Nausea and vomiting; Translations: [Nausea with vomiting, unspecified] 02-10-2017 Episodic Neoplasms of unspecified nature or uncertain behavior (2 sources) Neoplasm of skin; Translations: [Neoplasm of unspecified behavior of bone, soft tissue, and skin] 02-17-2024 Episodic Osteoarthritis (6 sources) Localized osteoarthrosis; Translations: [Primary osteoarthritis, right [...] Translations: [Cardiomegaly] Onset: 3 06-02-2021 Chronic Other and unspecified benign neoplasm (2 sources) Skin lesion; Translations: [Hemangioma of skin and subcutaneous tissue] 06-22-2024 Episodic Other and unspecified benign neoplasm (2 sources) Melanocytic nevus of trunk; Translations: [Melanocytic nevi of trunk] 06-22-2024 Episodic Other connective tissue disease (10 sources) Pain [...] other nonspecific skin eruption] Onset: 3 Episodic Other skin disorders (2 sources) Lentiginosis; Translations: [Other melanin hyperpigmentation] 06-22-2024 Episodic Other skin disorders (2 sources) Seborrheic keratosis; Translations: [Other seborrheic keratosis] 06-22-2024 Episodic Peripheral and visceral atherosclerosis (20 sources) Atherosclerosis of aorta; Translations: [Atherosclerosis of aorta] Onset: 2 Chronic Comment on above: Added at request of Dr. Duomnt. Rehabilitation care; fitting of prostheses; and adjustment [...] Spondylosis; intervertebral disc disorders; other back problems (6 sources) Cervical spondylosis; Translations: [Other spondylosis with [...] Resolved: 12-07-2022 12-07-2022 Episodic Malaise and fatigue (6 sources) Physical deconditioning; Translations: [Other malaise] Onset: [...] 08-21-2014 08-21-2014 Episodic Other connective tissue disease (6 sources) Muscle weakness; Translations: [Muscle weakness (generalized)] [...] 12-07-2022 12-07-2022 Episodic Other nervous system disorders (6 sources) Impairment of balance; Translations: [Other abnormalities of gait and mobility] Onset: 12-14-2022 12-14-2022 Episodic Other non-traumatic joint disorders (20 sources) Joint pain; Translations: [Pain in unspecified joint] Onset: 12-25-2009 12-25-2009 Episodic Other non-traumatic joint disorders (6 sources) Pain in right shoulder; Translations: [Pain in joint, shoulder region] Onset: 03-03-2023 03-03-2023 Episodic Other non-traumatic joint disorders (6 sources) Chronic pain of right upper limb; [...] Spondylosis; intervertebral disc disorders; other back problems (6 sources) Neck pain; Translations: [Cervicalgia] Onset: 03-14-2023 03-14-2023 Episodic Results Test Name Value Interpretation Reference Range Facil ity CNOVon 05-10-2024 CNOV Office Visit (LOORRM) ---- SALVADORJORDI Gabriel ([id number]) 1940 M I Xcld* Date Time Provider Department 05/10/24 8:45 AM CHAITANYA WATKINS LOORRM During your visit today, we recorded the following information about you: Chaitanya Watkins, [facility] 05/10/2024 9:32 AM Signed SUBJECTIVE: The patient [...] and is current for today. Diego WilliamsonPJennifer. Referring Provider: SELF [200] Allergies As of [...] 12/04/2022 Encou (more content not included)... Normal [facility] Urology Office/Clinic Noteon 02-23-2024 Urology Office/Clinic Note [...] E&M of Est. Patient Low 20-29 Min [id number] 2. Prostate cancer screening (Z12.5: Encounter for screening for malignant neoplasm of prostate) PSA 01/17/24 - 0.24 which is low/stable and well within normal range I discussed the options concerning the PSA and continued monitoring, given his advancing age. He wants to continue monitoring his PSA levels for now. Ordered: E&M of Est. Patient Low 20-29 Min 03023 Other obstructive and reflux uropathy (N13.8: Other obstructive and reflux uropathy) Offered continued scheduled follow up with our clinic vs following up PRN. Pt prefers the latter. We will ensure PCP continues to order refills and annual PSA. Letter sent. Follow-up With When Contact Information CHANTEL NORRIS, IVONNE Hernandez, URL Only if needed [address] [place] [address] [facility] (1) Additional Instructions: Patient Education Benign Prostatic [...] influenza vir (more content not included)... Normal [facility] Comment on above: Result Comment: Elec tronically Signed By: IVONNE GRANT PA-C\.br\Date and Time Signed: 02/23/24 13:54 EDT Ambulatory Visit Summaryon 0 02-22-2024 Ambulatory Visit Summary Ambulatory Visit Summary JORDI FRANCO :1940 Visit Date:02/22/2024 Ambulatory Visit Instructions Your [...] you for choosing us for your care. [facility] Provider Letteron 02-22-2024 Provider Letter Provider Letter Dr Raul Dumont, [facility] [place] [address] Re: JORDI FRANCO Date of : 1940 Dear Raul Felder DO, HOWARD B was evaluated at [facility] 02/22/2024 10:00:00 As this patient [...] Thanks! Provider Signature: Ivonne Grant PA-C Physician Outpatient Physical Therapist [facility] [address] [place] [address] [facility] CNOVon 02-08-2024 CNOV Office Visit (LOORRM) ---- SALVADORJORDI Gabriel ([id number]) 1940 M [facility] Xcld* Date Time Provider Department 02/08/24 11:00 AM CHAITANYA WATKINS LOORRM During your visit today, we recorded the following information about you: Chaitanya Watkins, DP 02/08/2024 11:21 AM Signed SUBJECTIVE: The patient [...] and is current for today. Diego WilliamsonPJennifer. Referring Provider: SELF [200] Allergies As of Date: 02/08/2024 Noted Allergy Reaction GRASS POLLEN 12/04/2016 16 - Unknown NASONEX (MOMETASONE) 09/01/2013 14 - Other: See Comments Comments: Made him feel very hot and very jittery and shakey. PREDNISONE 05/25/2013 1 - Mental Status Change SULFA (SULFONAMIDE ANTIBIOTICS) 11/05/2005 16 - Unknown Date Reviewed: 02/08/2024 Reviewed by: Natty Charles, CT - Fully Assessed Reason for Visit: [...] [N40.0] 12/04/2022 (more content not included)... Normal [facility] XR KNEE RIGHT (1-2 VIEWS)on 12-06-2023 XR [...] Rosalba Guzman MD 12/06/23 Final result Normal [facility] CNPNon 11-09-2023 [facility] Telephone ([facility]) ---- JORDI FRANCO ([id number]) 1940 M HVI Xcld* Date Time Provider Department 11/09/23 FLOYD SPAULDING [facility] During your visit today, we recorded the following information about you: Radha Love 11/09/2023 3:50 PM Signed November 09, 2023 [id number] Patient Name: Jordi Gabriel Salvador Contact Information: [phone] (home) [phone] (cell) Reason For Call: Medication Issue/Question: Xerelto [...] for Visit: Medication Problem [65] Patient Question [9553] Prescriptions as of 11/19/2023 - metoprolol succinate [...] Status:Closed by RADHA LOVE on 11/19/23 Normal [facility] CNOVon 11-03-2023 CNOV Office Visit (LOORRM) ---- JORDI FRANCO ([id number]) 1940 M [facility] Xcld* Date Time Provider Department 11/03/23 8:45 AM CHAITANYA WATKINS LOORRM During your visit today, we recorded the following information about you: Chaitanya Watkins, Dustin 11/03/2023 8:44 AM Signed SUBJECTIVE: The patient [...] and is current for today. Diego WilliamsonPJennifer. Referring Provider: SELF [200] Allergies As of [...] [N40.0] 12/04/2022 (more content not included)... Normal [facility] Ynes 10-19-2023 [facility]OBBY Telephone ([facility]) ---- JORDI FRANCO ([id number]) 1940 M HVI Xcld* Date Time Provider [...] a prescription for foam inserts for Pt. States office can call Pt if a prescription [...] On mechan (more content not included)... Normal [facility] CNOVon 08-05-2023 CNOV Office Visit (LOORRM) ---- JORDI FRANCO ([id number]) 1940 M HVI Xcld* Date Time Provider Department 08/05/23 10:15 AM CHAITANYA WATKINS During your visit today, we recorded the following information about you: Chaitanya Watkins DPM 08/05/2023 10:12 AM Signed SUBJECTIVE: The patient [...] 12/04/2022 Encoun (more content not included)... Normal [facility] CNPNon 07-07-2023 CNPN Telephone ([facility]) ---- JORDI FRANCO ([id number]) 1940 [facility] Xcld* Date Time Provider Department 07/07/23 BARBARA WARNER [facility] During your visit today, we recorded the following information about you: Caro Montalvo, RN 07/07/2023 3:07 PM Signed Received fax from [facility] pharmacy for patient's metoprolol. Fax shows different dose from medication list. Spoke with patient who is currently not home. He will have his check the bottle and get back to us. Will need new prescription for metoprolol (see notes on 01/22/2023 had elevated heart rate in the 90's - in the 70's afterwards). JC Gomez Blanche 07/07/2023 3:28 PM Signed Patient called states [...] Fully Assessed Reason for Visit: Medication Question [1478] Prescriptions as of 07/08/2023 - rivaroxaban (XARELTO) [...] Encounter Status:Closed by CARO MONTALVO on 07/08/23 [facility] CNPCarol 06-11-2023 CNPN Telephone ([facility]) ---- JORDI FRANCO ([id number]) 1940 M [facility] Xcld* Date Time Provider Department 06/11/23 CHAITANYA WATKINS During your visit today, we recorded the following information about you: Magalys Shen Cast Tech 06/11/2023 1:48 PM Signed Left message on identified VM that orthotics have come in and may be picked up in the [place] office. Allergies As of Date: 06/11/2023 Noted [...] Encounter Status:Closed by MAGALYS SHEN on 06/11/23 Normal [facility] CNOVon 06-04-2023 CNOV Office Visit ([facility]) ---- JORDI FRANCO ([id number]) 1940 M HVI Xcld* Date Time Provider Department 06/04/23 10:30 AM FLOYD SPAULDING CE[facility] During your visit today, we recorded the following information about you: Pulse Blood pressure Weight 74/minute 134/70 93 kg Floyd Spaulding MD 06/04/2023 10:50 AM Signed [facility] [place] Clemencia Dixon Department of Cardiovascular Medicine OUTPATIENT [...] cardiac surgery 12/04/2022 Cardiomegaly 09/22/2012 borderline Dyslipidemia [place] (hard of hearing) Hypertension Mitral regurgitation Pinched nerve in neck Spinal stenosis Stroke (HCC) 06/07/2007 TIA (transient ischemic attack) 06/07/2007 [facility] PAST SURGICAL HISTORY Procedure Laterality Date ATRIAL FIBRILLATION/FLUTTE R ABLATION 2001,2003, 2012 - Radiofrequency ablation for atrial fibrillation BACK SURGERY HX Disc Surgery FOOT/TOES SURGERY PROC UNLISTED 02/05/2010 Performed by CHAITANYA WATKINS at [facility] [place] 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 Normal [facility] CPU34tl 06-04-2023 ECG01 Ventricular Rate : 74 BPM Atrial Rate : 74 BPM P-R Interval : 174 ms QRS Duration : 108 ms Q-T Interval : 418 ms QTC Calculation(Bazett) : 463 ms Calculated P [place] : 24 degrees Calculated R [place] : -46 degrees Calculated T [place] : 24 degrees NORMAL SINUS RHYTHM LEFT AXIS DEVIATION ABNORMAL ECG Confirmed by FLOYD SPAULDING M.D. ([id number]) on 06/10/2023 7:35:58 AM NAME : JORDI FRANCO PID : [id number] : 1940 Gender : Male Race : ORD : Procedure Date : Jun 04 2023 11:24:03 Edit Date : Jun 10 2023 07:35:58 Diagnosis: NORMAL SINUS RHYTHM LEFT AXIS DEVIATION ABNORMAL ECG Confirmed by FLOYD SPAULDING M.D. ([id number]) on 06/10/2023 7:35:58 AM Test Reason : Location : 198 : [facility] 7 Overread By : FLOYD SPAULDING M.D. Edited By : FLOYD SPAULDING M.D. Referred By : FLOYD SPAULDING Acquired by : MILLY MOYER Normal [facility] XR Foot - left AP and Latera l and obliqueon 05-12-2023 IMPRESSION: No acute osseous abnormality. Director Of Sustainability: ALESSIO Transcribe Date/Time: May 12 2023 9:35A Dictated [...] first MTP osteoarthritis. DIVISION OF RADIOLOGY Provider, [facility] [place] - 05/12/2023 * * *Final Report* * [...] osteoarthritis. IMPRESSION IMPRESSION: No acute osseous abnormality. Director Of Sustainability: [facility] Transcribe Date/Time: May 12 2023 9:35A Dictated by : HUGH LUCERO MD This examination was interpreted and the report reviewed and electronically signed by: JOSE SAMANIEGO MD on May 12 2023 10:55AM EST [facility] Radiology Study observation (narrative) [facility] XR Foot - left AP and Latera l and obliqueOrdered By: Ccf Provider on 05-12-2023 [facility] Family Medicine Office/Clini c Noteon 05-10-2023 Family [...] of clutter to prevent tripping and/or falling. [place] Advance Directives reviewed, on file in chart. [...] follow up visits. Patient follows up with Supervisor [place] Department, last visit notes available in chart and have been reviewed. Cardiac Healthy Nutritional handout reviewed and provided for (more content not included)... Normal [facility] Comment on above: Result Comment: Elec tronically Signed By: MP MARTINEZ CNP\.solomon\Date and Time Signed: 05/10/23 09:41 EST\.br\Electronically Co-Signed [...] oz glass (more content not included)... Normal [facility] Screenson 05-06-2023 Screens [id number] Normal [facility] Ambulatory Visit Summaryon 1 07-03-2022 [...] IVONNE GRANT PA-C Where: [facility] Normal [address] [place] [address]-\.br\ Medications\.br\ What How Much When Instructions\.br\ Unchanged [...] hard liquor (44 mL).\.br\ Lifestyle\.br\ ? \.br\ Childwold your teeth every morning and night with [...] sure you follow all gun safety procedures.\.br\ [facility] ED Note-Physicianon 04-12-20 ED Note-Physician Basic Information [...] they were [place] go [place] [facility]. The patient denies any spinning. He states [...] both correctly = 0 Open and close eyes/medical sales specialist release hand: Obeys both correctly = 0 [...] and Complexity of Problems Differential Diagnosis: [] [facility] Data External documents reviewed: [] [...] DUMONT In 3 days 04/14/2023 EST [address] [facility] [place] [address]- [phone] Business (1) Additional Instructions: Return to the emergency room if your dizziness recurs or any new symptoms. Patient Education D (more content not included)... Normal [facility] Comment on above: Result Comment: Elec tronically Signed By: Marlene Santiago, Jh Johnson\.br\Date and Time Signed: 04/12/23 11:19 EST Auto Diffon 04-11-2023 Basophils/100 WBC (Bld) 0.7 % Normal 0.0-2.0 [facility] Comment on above: Order Comment: Order Added by Discern Expert. Performed By: #### 1 [id number] ####[facility] [address] [place] [address] Basophils/Leukocytes Auto (Bld) [Pure # fraction] 0.0 E9/L Normal 0.0-0.2 [facility] Comment on above: Order Comment: Order Added by Discern Expert. Performed By: #### 1 [id number] ####[facility] [address] [place] [address] Eosinophils/100 WBC (Bld) 2.5 % Normal 0.0-8.0 [facility] Comment on above: Order Comment: Order Added by Discern Expert. Performed By: #### 1 [id number], [id number], [id number], [id number] ####[facility] [address] [place] [address] Eosinophils/Leukocyt es Auto (Bld) [Pure # fraction] 0.1 E9/L Normal 0.0-0.5 [facility] Comment on above: Order Comment: Order Added by Discern Expert. Performed By: #### 1 5439868, 67113541, 2921920, 1372001, 7716842, 5966004, 0573347, 62431019 ####[address] [place] [address] Lymphocytes/100 WBC (Bld) 16.8 % Normal 14.0-50.0 [facility] Comment on above: Order Comment: Order Added by Discern Expert. Performed By: #### 1 1848324, 05922620, 2237054, 8035520, 0951901, 5052057, 7479984, 83631009 ####[address] [place] [address] Lymphocytes/Leukocyt es Auto (Bld) [Pure # fraction] 0.6 E9/L Low 1.0-4.0 [facility] Comment on above: Order Comment: Order Added by Discern Expert. Performed By: #### 1 7463302, 22091281, 0115425, 7677045, 1999433, 6086797, 5805874, 83816622 ####[address] [address] Monocytes/100 WBC (Bld) 15.1 % High 4.0-14.0 [facility] Comment on above: Order Comment: Order Added by Discern Expert. Performed By: #### 1 9105077, 67645578, 9407795, 3418479, 4281269, 5587778, 3114729, 64107256 ####[address] [address] Monocytes/Leukocytes Auto (Bld) [Pure # fraction] 0.5 E9/L Normal 0.2-1.0 [facility] Comment on above: Order Comment: Order Added by Discern Expert. Performed By: #### 1 4506799, 07705906, 1997218, 5302731, 3823591, 1881709, 1128878, 48334809 ####[address] [place] [address] Neutrophils/100 WBC (Bld) 64.9 % Normal 36.0-75.0 [facility] Comment on above: Order Comment: Order Added by Discern Expert. Performed By: #### 1 8267280, 44704766, 1739582, 0732659, 8370389, 4288942, 4291080, 65798680 ####[facility] [address] [place] [address] Neutrophils/Leukocyt es Auto (Bld) [Pure # fraction] 2.3 E9/L Normal 2.0-7.5 [facility] Comment on above: Order Comment: Order Added by Discern Expert. Performed By: #### 1 2787412, 87031407, 2254457, 2564335, 5816476, 1377307, 9842634, 03265684 ####[facility] [address] [place] [address] BMPon 04-11-2023 Creatinine [Mass/Vol] 1.0 mg/dL Normal 0.5-1.3 [facility] Comment on above: Performed By: #### 1 1789163, 89787562, 2846019, 2227262, 1857489, 9493357, 2031775, 25706475 ####[facility] [address] [place] [address] Urea nitrogen [Mass/Vol] 24 mg/dL High 5-21 [facility] Comment on above: Performed By: #### 1 8458272, 07802520, 0326031, 5143930, 4821795, 9434396, 5573154, 52931142 ####[facility] [address] [place] [address] Urea nitrogen/Creatinine [Mass ratio] 24 No Units High 10-20 [facility] Comment on above: Performed By: #### 1 5660026, 79133008, 2036865, 4039241, 7000310, 6895636, 8134065, 23990467 ####[facility] [address] [place] [address] Anion gap [Moles/Vol] 8 mmol/L Normal 6-16 [facility] Comment on above: Performed By: #### 1 6171035, 91260083, 5161088, 7787373, 0700614, 0757504, 1555682, 04691343 ####[facility] [address] [place] [address] Calcium [Mass/Vol] 9.1 mg/dL Normal 8.9-11.1 [facility] Comment on above: Performed By: #### 1 4409546, 71433954, 0221709, 4719331, 6055562, 7140286, 3580566, 05518273 ####[facility] [address] [place] [address] Chloride [Moles/Vol] 105 mmol/L Normal 101-111 [facility] Comment on above: Performed By: #### 1 2758953, 01886370, 1611310, 4622293, 5819619, 6046303, 9041112, 44552220 ####[facility] [address] [place] [address] CO2 [Moles/Vol] 29 mmol/L Normal 21-31 [facility] Comment on above: Performed By: #### 1 2058672, 85961871, 1442614, 5020162, 1220717, 3798579, 7600200, 71475591 ####[facility] [address] [place] [address] Glucose [Mass/Vol] 100 mg/dL Normal 55-199 [facility] Comment on above: Result Comment: If t his glucose result represents a fasting glucose, interpretation should refer to the following reference range: 55-99 mg/dL Performed By: #### 1 4490733, 94054797, 5070598, 1428154, 2294686, 4575660, 3775659, 02307731 ####[facility] [address] [place] [address] Potassium [Moles/Vol] 3.6 mmol/L Normal 3.5-5.3 [facility] Comment on above: Performed By: #### 1 9158797, 34061518, 2504070, 0402076, 5907845, 8274781, 0652417, 72510514 ####[facility] [address] [place] [address] Sodium [Moles/Vol] 138 mmol/L Normal 135-145 [facility] Comment on above: Performed By: #### 1 1532482, 10439539, 9226639, 2354229, 5404429, 8994200, 2981276, 88235941 ####[facility] [address] [place] [address] CBC w/ Auto Diffon 3 Erythrocyte distribution width (RBC) [Ratio] 15.3 % High 10.9-14.2 [facility] Comment on above: Performed By: #### 1 9144028, 86770632, 1323734, 9070733, 5912382, 9450238, 6525975, 42291281 ####[address] [place] [address] Hematocrit (Bld) [Volume fraction] 36.6 % Low 37.7-49.0 [facility] Comment on above: Performed By: #### 1 2999173, 43127070, 5875252, 9111441, 9905175, 5456951, 2061424, 09510382 ####[address] [place] [address] Hemoglobin (Bld) [Mass/Vol] 11.9 g/dL Low 13.5-17.5 [facility] Comment on above: Performed By: #### 1 7338865, 39392344, 1538380, 9817490, 5217716, 4303636, 2497708, 11540232 ####[facility] [address] [place] [address] MCH (RBC) [Entitic mass] 27.5 pg Normal 27.0-34.0 [facility] Comment on above: Performed By: #### 1 3290092, 25241572, 1837280, 3259749, 1652390, 3086327, 2881162, 53245016 ####Lei [address] [address] MCHC (RBC) [Mass/Vol] 32.5 g/dL Normal 31.4-36.0 [facility] Comment on above: Performed By: #### 1 0172540, 07804430, 8797025, 2022404, 6439557, 5517615, 9911755, 53089374 ####[address] [place] [address] MCV (RBC) [Entitic vol] 84.6 fL Normal 80.0-100.0 [facility] Comment on above: Performed By: #### 1 4469607, 34415301, 2861987, 4713481, 4802299, 0273730, 9147560, 51645703 ####[address] [address] Platelet mean volume (Bld) [Entitic vol] 7.1 fL Normal 6.4-10.8 [facility] Comment on above: Performed By: #### 1 1374422, 18722077, 4096081, 0756022, 4666413, 0792547, 6649105, 02619495 ####[address] [address] Platelets (Bld) [#/Vol] 163.0 E9/L Normal 150.0-500.0 [facility] Comment on above: Performed By: #### 1 9585708, 20045060, 2452728, 9138699, 6363064, 9273870, 0329598, 61778917 ####[address] [address] RBC (Bld) [#/Vol] 4.3 E12/L Normal 4.3-5.9 [facility] Comment on above: Performed By: #### 1 6835103, 54276909, 6851361, 6664709, 2834771, 2355987, 1052640, 34780101 ####[address] [address] WBC corrected for nucl RBC Auto (Bld) [#/Vol] 3.6 E9/L Low 4.0-11.0 [facility] Comment on above: Performed By: #### 1 7861239, 07188166, 6539593, 1229843, 5228423, 1752186, 3082432, 74275877 ####[facility] [address] CHEMISTRYOrdered By: SYSTEM SYSTEM on 04-11-2023 Albumin [...] rate/Area] 75 mL/min/1.73 m2 Normal >=59mL/min/1.73 m2 [facility] Chem S Comment [...] 8.50 pg/mL Low 15.90 - 38.40 pg/mL [facility] Remisol Comment on above: Interpretive Data: T he 95% CI (Confidence Interval) PPV (Positive Predictive Value) for myocardial infarction in females is 38 pg/mL, in males 51 pg/mL. The results should be used in conjunction with clinical conditions of myocardial infarction. (Access High Sensitivity Troponin I Instructions For Use, Dov [place], January 2018) Urea nitrogen [Mass/Vol] 24 mg/dL High 5 - 21 mg/dL FT Remisol Urea nitrogen/Creatinine [Mass ratio] 24 mg/mg High 10 - 20 FT Remisol COAGULATIONOrdered By: Wendi Hernandez on 04-11-2023 aPTT Coag (PPP) [Time] 36.3 s Normal 25.1 - 36.5 second(s) [facility] Auto Coag Comment [...] the same coagulation reagent and instrumentation as [facility]. Currently there are no coagulation studies available worldwide for children to 14 days, and no normal ranges. Heparin therapeutic range (represented by Anti-Factor Xa activity of 0.2 - 0.4 U/mL) corresponds to PTT of 56.6 - 109.0 sec. INR Coag (PPP) [Relative time] 1.2 {INR} Invalid Interpretation Code [facility] Auto Coag Comment on above: Interpretive Data: I NR results are specifically intended to assess patients stabilized on long-term Anticoagulation therapy suggested INR s Less Intensive Anticoagulation 2.0 3.0 Conventional Range 3.0 4.5 PT Coag (PPP) [Time] 13.9 s High 9.4 - 1 2.5 second(s) [facility] Auto Coag Comment on above: Interpretive Data: 1 5 days - 4 weeks 1 - 5 months 6 -11 months 1-5 years 6-10 years 11 -17 years Mean: 11.2 (9.5-12.6) Mean: 11.0 (9.7-12.8) Mean: 11.0 (9.8-13.0) Mean: 11.3 (9.9-13.4) Mean: 11.7 (10.0-14.6) Mean: 11.8 (10.0 - 14.1) Pediatric Reference ranges were obtained from a study by jose juan Jsohua prepared from 1437 samples obtained at 7 different centers using the same coagulation reagent and instrumentation as [facility]. Currently there are [...] V. Transcribed by: GREGG Technologist: ORLY Normal [facility] Consent for Treatmenton Consent for Treatment [id number] EC#[id number] Normal [facility] Discharge Instructionson Discharge Instructions [id number] Normal [facility] ED Clinical Summaryon 2022 ED Clinical Summary [address] [address] ED Clinical Summary Person Information Name: JORDI FRANCO [place] Age: 82 Years : 1940 Sex: Male Language: Romansh PCP: Raul DUMONT DO Marital Status: Visit [...] 04/11/2023 12:30:48 04/11/2023 12:30:48 04/11/2023 12:30:48 ADDRESS: [address] [place] [address] [phone] PHYS DOC NOTES: MEDICAL INFORMATION: Prescriptions Given: [...] Follow up: With: Address: When: Raul DUMONT [address] [facility] [phone] Business (1) In 3 days 04/14/2023 Comments: Return to the emergency room if your dizziness recurs or any new symptoms. DIAGNOSIS: 1:Dizziness Normal [facility] ED Patient Education Noteon 04-11-2023 ED Patient [...] is good. ? 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 ? Take acdm-icy-zktgwbb and prescription medicines only as told by [...] Reviewed: 04/28/2021 Elsevier Patient Education ? 2022 [employer] Normal [facility] ED Patient Summaryon 023 ED Patient Summary [address] [address] Patient Discharge Instructions Person Information Name: MERLINJOSIANEMAGDIEL JORDI Gabriel Age: 82 Years Arrival Date: 04/11/2023 09:36:59 Discharge Diagnosis: 1:Dizziness Primary Care Physician: Raul DUMONT DO Provider Information Primary Provider: Jh Rosario M.D. Advanced Set Up Mechanic Heading Machines:None The exam and treatment you received in the Emergency Department were for an urgent problem and are not intended as complete care. It is important that you follow up with a doctor, nurse practitioner, or physician?s bilingual teacher assistant for ongoing care. If your symptoms [...] Follow-up Instructions: With: Address: When: Raul DUMONT [address] [facility], [facility] [address] [phone] Business (1) In 3 days 04/14/2023 Comments: [...] opioids can be used to help relieve fthtdlrz-ym-wjlowu pain and are often prescribed following a [...] be struggling with addiction, tell your health career and guidance counselor and ask for kierra (more content not included)... Normal [facility] HEMATOLOGYOrdered By: SYSTEM SYSTEM on 04-11-2023 Basophils/100 [...] 15.3 % High 10.9 - 14.2 % [facility] HemeAutoSS Hematocrit (Bld) [Volume fraction] 36.6 % Low 37.7 - 49.0 % [facility] HemeAutoSS Hemoglobin (Bld) [Mass/Vol] 11.9 g/dL Low 13.5 - 17.5 gm/dL [facility] HemeAutoSS MCH (RBC) [Entitic mass] 27.5 pg Normal 27.0 - 34.0 pg [facility] HemeAutoSS MCHC (RBC) [Mass/Vol] 32.5 g/dL Normal 31.4 - 36.0 gm/dL [facility] HemeAutoSS MCV (RBC) [Entitic vol] 84.6 fL Normal 80.0 - 100.0 fL [facility] HemeAutoSS Platelet mean volume (Bld) [Entitic vol] 7.1 fL Normal 6.4 - 10.8 fL [facility] HemeAutoSS Platelets (Bld) [#/Vol] 163.0 E9/L Normal 150.0 - 500.0 E9/L [facility] HemeAutoSS RBC (Bld) [#/Vol] 4.3 E12/L Normal 4.3 - 5.9 E12/L [facility] HemeAutoSS WBC corrected for nucl RBC Auto (Bld) [#/Vol] 3.6 E9/L Low 4.0 - 11.0 E9/L [facility] HemeAutoSS Hep Func Panelon 04-11-2023 Albumin [Mass/Vol] 3.8 g/dL Normal 3.3-5.0 [facility] Comment on above: Performed By: #### 1 1828919, 69071838, 3819713, 7917845, 9899346, 6497959, 6570322, 67895911 ####[facility] [address] [place] [address] Albumin/Globulin (S) [Mass conc ratio] 1.2 Normal 1.1-2.2 [facility] Comment on above: Performed By: #### 1 1193306, 78947307, 6787752, 8416410, 1170595, 5219172, 9599909, 68760159 ####[facility] [address] [place] [address] ALP [Catalytic activity/Vol] 79 Int._Unit/L Normal 21-98 [facility] Comment on above: Performed By: #### 1 7916003, 59957668, 6495951, 3733426, 9300325, 8284481, 6254986, 62559317 ####[address] [address] ALT No additional P-5'-P [Catalytic activity/Vol] 16 Int._Unit/L Normal 6-46 [facility] Comment on above: Performed By: #### 1 9316139, 80548518, 9504791, 3532105, 0738523, 7154688, 2509667, 56429620 ####[address] [address] AST [Catalytic activity/Vol] 24 Int._Unit/L Normal 5-43 [facility] Comment on above: Performed By: #### 1 0367713, 66047726, 2903447, 4354167, 0549549, 6405777, 3664272, 18498722 ####[address] [address] Bilirubin [Mass/Vol] 0.5 mg/dL Normal 0.0-1.1 [facility] Comment on above: Performed By: #### 1 5155297, 35962729, 5213718, 4748693, 9443727, 1407970, 1214976, 38785024 ####[facility] [address] [place] [address] Bilirubin.direct [Mass/Vol] 0.1 mg/dL Normal 0.1-0.4 [facility] Comment on above: Performed By: #### 1 6970150, 46079938, 1675552, 9976113, 4909157, 7412060, 3640912, 02630740 ####[address] [address] Bilirubin.indirect [Mass or moles/Vol] 0.4 mg/dL Normal 0.1-0.9 [facility] Comment on above: Performed By: #### 1 9429478, 67747481, 4665883, 7266292, 2123920, 4743352, 5736910, 54785815 ####[facility] [address] [place] [address] Globulin (S) [Mass/Vol] 3.1 g/dL Normal 1.4-4.0 [facility] Comment on above: Performed By: #### 1 0846628, 02513774, 2914996, 7537397, 6610375, 5997135, 5311334, 82163480 ####[facility] [address] [place] [address] Protein [Mass/Vol] 6.9 g/dL Normal 6.0-7.8 [facility] Comment on above: Performed By: #### 1 6487468, 34914842, 0119487, 2099641, 0542882, 4776249, 8070179, 73325569 ####[facility] [address] [place] [address] Magnesiumon 04-11-2023 Magnesium [Mass/Vol] 2.0 mg/dL Normal 1.3-2.4 [facility] Comment on above: Performed By: #### 1 5187665, 54073288, 0636913, 5346260, 5360644, 3539760, 1653958, 50490889 ####[facility] [address] [place] [address] Monitor Recordon 04-11-2023 Monitor Record [id number] 427#1.00TIFF Normal [facility] PT & PTTon 04-11-2023 aPTT Coag (PPP) [Time] 36.3 second(s) Normal 25.1-36.5 [facility] Comment on above: Result Comment: Para meter [...] the same coagulation reagent and instrumentation as [facility]. Currently there are no coagulation studies available worldwide for children to 14 days, and no normal ranges. Heparin therapeutic range (represented by Anti-Factor Xa activity of 0.2 - 0.4 U/mL) corresponds to PTT of 56.6 - 109.0 sec. Performed By: #### 1 9864607, 60924927, 5361552, 5205947, 8195907, 2005137, 8886106, 04152186 ####[facility] [address] [place] [address] INR Coag (PPP) [Relative time] 1.2 {INR} Invalid Interpretation Code [facility] Comment on above: Result Comment: INR results are specifically intended to assess patients stabilized on long-term Anticoagulation therapy suggested INR?s ?Less Intensive Anticoagulation? 2.0 ? 3.0 Conventional Range 3.0 ? 4.5 Performed By: #### 1 5684708, 88109175, 4778304, 1271327, 2815563, 1963024, 2202988, 30011088 ####[facility] [address] [place] [address] PT Coag (PPP) [Time] 13.9 second(s) High 9.4-12.5 [facility] Comment on above: Result Comment: 15 d [...] the same coagulation reagent and instrumentation as [facility]. Currently there are no coagulation studies available worldwide for children to 14 days, and no normal ranges. Performed By: #### 1 1718271, 38410004, 3268598, 7407322, 3280563, 0552310, 1962726, 62347812 ####[facility] [address] [place] [address] Troponin 0 Hr.on 04-11-2023 Troponin I.cardiac [Mass/Vol] 8.50 pg/mL Low 15.90-38.40 [facility] Comment on above: Result Comment: The 95% CI (Confidence Interval) PPV (Positive Predictive Value) for myocardial infarction in females is 38 pg/mL, in males 51 pg/mL. The results should be used in conjunction with clinical conditions of myocardial infarction. (Access High Sensitivity Troponin I Instructions For Use, Dov [place], January 2018) Performed By: #### 1 7950567, 16557349, 4653253, 1306111, 5812476, 7361318, 0683986, 20251535 ####[address] [place] [address] UA With Cult Reflexon 2022 Bilirubin Ql (U) Negative Normal Negative [facility] Comment on above: Performed By: #### 1 8416077 ####[address] [address] Clarity (U) CLEAR Normal Clear [facility] Comment on above: Performed By: #### 1 1375558 ####[address] [place] [address] Color (U) YELLOW Normal Yellow [facility] Comment on above: Performed By: #### 1 1470962 ####[address] [place] [address] Epithelial cells.squamous LM.HPF (Urine sed) [#/Area] 0-2 Normal 0-2 [facility] Comment on above: Performed By: #### 1 2243553 ####[facility] [address] [place] [address] Glucose Test strip (U) [Mass/Vol] Negative Normal Negative [facility] Comment on above: Performed By: #### 1 0127194 ####[facility] [address] [place] [address] Hemoglobin Ql (U) Negative Normal Negative [facility] Comment on above: Performed By: #### 1 4039837 ####[facility] [address] [place] [address] Ketones (U) [Mass/Vol] Negative Normal Negative [facility] Comment on above: Performed By: #### 1 1747389 ####[address] [place] [address] [place].plasma/Lithi um.RBC (Bld) [Mass ratio] 0-3 Normal 0-3 [facility] Comment on above: Performed By: #### 1 5942719 ####[facility] [address] [place] [address] Nitrite Ql (U) Negative Normal Negative [facility] Comment on above: Performed By: #### 1 4861647 ####[address] [address] pH (U) 6.0 [pH] Invalid Interpretation Code 5.0-9.0 [facility] Comment on above: Performed By: #### 1 6627411 ####[address] [place] [address] Protein (U) [Mass/Vol] Negative Normal Negative [facility] Comment on above: Performed By: #### 1 5534914 ####[address] [place] [address] Specific gravity (U) [Rel density] 1.015 Invalid Interpretation Code 1.005-1.030 [facility] Comment on above: Performed By: #### 1 4145250 ####[place] [address] [place], [place] [address] Type of Urine collection method Clean Catch Normal [facility] Comment on above: Performed By: #### 1 3236687 ####[facility] [address] [place] [address]4057 Urobilinogen Qn (U) 0.2 {Nasra'U}/dL Normal 0.0-1.0 [facility] Comment on above: Performed By: #### 1 3003732 ####[facility] [address] [place], [place] [address] WBC Auto Ql (U) Negative Normal Negative [facility] Comment on above: Performed By: #### 1 7571385 ####[facility] [address] [place], [place] [address] WBC LM.HPF (Urine sed) [#/Area] 0-5 Normal 0-5 [facility] Comment on above: Performed By: #### 1 4067838 ####[facility] [address] [place], [place] [address] URINALYSISOrdered By: Matthew Hernandez on 04-11-2023 Bilirubin Ql (U) Negative (04/11/23 11:25 AM) Normal Negative FT UA Auto SS Clarity (U) Clear (04/11/23 11:25 AM) Normal Clear FT UA Auto SS Color (U) Yellow (04/11/23 11:25 AM) Normal Yellow FT UA Auto SS Epithelial cells.squamous LM.HPF (Urine sed) [#/Area] 0-2 /HPF Normal 0-2/HPF FT UA Auto SS Glucose Test strip (U) [Mass/Vol] Negative (04/11/23 11:25 AM) Normal Negative [facility] UA Auto SS Hemoglobin Ql (U) Negative (04/11/23 11:25 AM) Normal Negative [facility] UA Auto SS Ketones (U) [Mass/Vol] Negative (04/11/23 11:25 AM) Normal Negative FT UA Auto SS [place].plasma/Lithi um.RBC (Bld) [Mass ratio] 0-3 /HPF Normal 0-3/HPF [facility] UA Auto SS Nitrite Ql (U) Negative (04/11/23 11:25 AM) Normal Negative [facility] UA Auto SS pH (U) 6.0 *NA* (04/11/23 11:25 AM) Invalid Interpretation Code 5.0 - 9.0 [facility] UA Auto SS Protein (U) [Mass/Vol] Negative (04/11/23 11:25 AM) Normal Negative [facility] UA Auto SS Specific gravity (U) [Rel density] 1.015 *NA* (04/11/23 11:25 AM) Invalid Interpretation Code 1.005 - 1.030 [facility] UA Auto SS UA Spec Desc Clean Catch (04/11/23 11:25 AM) Normal [facility] UA Auto SS Urobilinogen Qn (U) 0.6008496 {Nasra'U}/dL Normal 0.0 - 1.0 EU/dL [facility] UA Auto SS WBC Auto Ql (U) Negative (04/11/23 11:25 AM) Normal Negative [facility] UA Auto SS WBC LM.HPF (Urine sed) [#/Area] 0-5 /HPF Normal 0-5/HPF [facility] UA Auto SS [...] Engle MD, V. Transcribed by: GREGG Technologist: CC, Technical Comments Radiation Dose: Ka,r in mGy = na DAP = na Normal [facility] eGFRon 04-11-2023 GFR/1.73 sq M.predicted among non-blacks MDRD (S/P/Bld) [Vol rate/Area] 75 mL/min/1.73 m2 Normal >=59 [facility] Comment on above: Order Comment: Order added by Discern Expert. Result Comment: Cafeteria Aide lin kidney disease could be indicated at eGFR's of less than 60 mL/min/1.73m2. Kidney failure is indicated at less than 15 mL/min/1.73m2. Performed By: #### 1 0221461, 18032063, 4649829, 4631316, 1897226, 8556413, 6388613, 88126872 ####[facility] [address] [place] [address] CNOVon 01-14-2023 [facility] JORDI FRANCO ([id number]) 1940 M I Xcld* Date Time Provider Department 01/14/23 1:30 PM BARBARA WARNER [facility] During your visit today, we recorded the following information about you: Pulse Blood pressure Weight Height 95/minute 120/74 90.3 kg 1.778 m Barbara Warner APRN.DE ALCHOLIZER, RAMÓN 01/14/2023 1:50 PM Signed [facility] [place] Clemencia Dixon Department of Cardiovascular Medicine SECTION OF CLINICAL CARDIOLOGY OUTPATIENT VISIT DATE January 14, 2023 OUTPATIENT VISIT TYPE ESTABLISHED PRIMARY CARE PHYSICIAN: Raul Dumont [facility] [address] [place] [address] REFERRING PHYSICIAN: Hugo Solano [address] [facility] [address] CHIEF COMPLAINT: Established Patient and Hospital Follow [...] cardiac surgery 12/04/2022 Cardiomegaly 09/22/2012 borderline Dyslipidemia [place] (hard of hearing) Hypertension Mitral regurgitation Pinched nerve in neck Spinal stenosis Stroke (HCC) 06/07/2007 TIA (transient ischemic attack) 06/07/2007 Verru[place]imy PAST SURGICAL HISTORY Procedure Laterality Date ATRIAL FIBRILLATION/FLUTTE R ABLATION 2001,2003, 2012 - Radiofrequency ablation for atrial fibrillation BACK SURGERY HX Disc Surgery FOOT/TOES SURGERY PROC UNLISTED 02/05/2010 Performed by CHAITANYA WATKINS at [facility] REC[facility] 02/05/2010 Performed by CHAITANYA WATKINS at [facility] ERIKA PAST SURGICAL HISTORY OF 2005 endoscopic [...] mouth once daily for 7 days. mag [id number] rt xt 500-3,000-150 mg-unit-mg tab Take by mouth. (Patient not taking: Reported on 12/16/2022) lysine 500 mg tab Take by mouth. (Patient not taking: Reported on 12/16/2022) Vitamin E Acetate, Bulk, 12 (more content not included)... Normal [facility] EKGon 01-14-2023 Electrocardiogram Systolic BP : 120 mmHg Diastolic BP : 74 mmHg Ventricular Rate : 95 BPM Atrial Rate : 95 BPM P-R Interval : 166 ms QRS Duration : 98 ms Q-T Interval : 366 ms QTC Calculation(Bazett) : 459 ms Calculated P [place] : 10 degrees Calculated R [place] : -48 degrees Calculated T [place] : 32 degrees NORMAL SINUS RHYTHM LEFT AXIS DEVIATION ABNORMAL ECG Confirmed by SAVANNA ZHANG MD ([id number]) on 12/01/2023 9:36:11 PM NAME : JORDI FRANCO PID : [id number] : 1940 Gender : Male Race : ORD : Procedure Date : Jan 14 2023 13:15:35 Edit Date : Dec 01 2023 21:36:14 Diagnosis: NORMAL SINUS RHYTHM LEFT AXIS DEVIATION ABNORMAL ECG Confirmed by SAVANNA ZHANG MD ([id number]) on 12/01/2023 9:36:11 PM Test Reason : Location : 556 : HLCARD Overread By : SAVANNA ZHANG MD Edited By : SAVANNA ZHANG MD Referred By : HUGO SOLANO Acquired by : , [facility] XR CHEST 2V FRONTAL/LATon [facility] Laboratory - Microbiology an d Antimicrobial susceptibilityon 12-03-2022 S. aureus and MRSA panel TINO+probe (Nose) Negative Negative [facility] CREATININE, BLOOD (POC)on Creatinine [Mass/Vol] 1.20 mg/dL 0.7 - 1.4 mg/dL [facility] eGFR (POCT) [facility] CTA CHEST (GATED) W IVCONon 12-01-2022 [facility] ECHO TRANSESOPHAGEALon 10-19 [facility] LVEF ECHO TRANSESOPHAGEALon 10-19-2022 LV Ejection Fraction 55 % [facility] METHYLMALONIC ACID (MMA)on 0 12-31-2021 Methylmalonic Acid, Serum 198 nmol/L Normal 0-[address] [facility] Comment on above: Performed By: #### M IN2 #### [facility] [address] [address] [address] Bryn Santo MR head/brain wo conon 12-30 MR head/brain wo con [facility] [address] MRI Report Signed Patient: Jordi Franco MR#: [id number] : 1940 Acct:[id number] Age/Sex: 81 / M ADM Date: 12/30/21 Loc: [facility] Room: Type: [facility] Attending Dr: Raghav Hubbard MD Copies to: [...] Dillon Flores M.D.12/30/2021 10:26 AM Dictation Location: [place] [address] Transcribed By: MONIK 12/30/21 1026 Dictated By: Dillon Flores II, MD 12/30/21 1023 Signed By: 12/30/21 1026 [facility] TSHon 12-25-2021 TSH 1.025 uIU/mL Normal 0.358-3.740 [facility] Comment on above: Performed By: #### T SH #### [facility] [address] [place] [address] Dr. Bryn Santo VIT B12 AND FOLATEon 022 Cobalamin (Vitamin B12) [Mass/Vol] 1345.0 pg/mL Critically high 193.0-986.0 [facility] Comment on above: Performed By: #### B 12FOL #### [facility] [address] [place] [address] Dr. Bryn Santo FOLATE 21.70 ng/mL Normal 8.60-58.90 [facility] Comment on above: Performed By: #### B 12FOL #### [facility] [address] [place] [address] chest wo conon 06-27-2021 CT chest wo con [facility] [address] [address] [address] Scan Report Signed Patient: Jordi Franco MR#: [id number] : 1940 Acct:[id number] Age/Sex: 80 / M ADM Date: 06/27/21 Loc: ER Room: Type: [facility] ER Attending Dr: Ordering Provider: Kate King [...] Td Garcia M.D.06/27/2021 8:35 PM Dictation Location: [place] [address] Transcribed By: [facility] 06/27/212034 Dictated By: Td Garcia DO 06/27/212025 Signed By: 06/27/212034 Normal [facility] XR hip LT min 2V(w/wo pelvis )*on 06-27-2021 XR hip LT min 2V(w/wo pelvis)* [facility] [address] [address] XRay Report Signed Patient: Jordi Franco MR#: [id number] : 1940 Acct:[id number] Age/Sex: 80 / M ADM Date: 06/27/21 [...] Td Garcia M.D.06/27/2021 7:40 PM Dictation Location: [place] [address] Transcribed By: [facility] 06/27/211939 Dictated By: Td Garcia DO 06/27/211939 Signed By: 06/27/211939 [facility] NR MR L-SPINE WO/W CONTRASTo n 07-26-2019 NR MR L-SPINE WO/W CONTRAST Patient Name: JORDI FRANCO STUDY: MR L-SPINE WO/W CONTRAST; 07/26/2019 1:19 pm INDICATION: Other spondylosis with radiculopathy, lumbar region. COMPARISON: None. ACCESSION NUMBER(S): [id number] ORDERING CLINICIAN: MARY MOLINA TECHNIQUE: The lumbar [...] changes as described The examination was interpreted [facility] Electronically signed by: PAULINE PADILLA MD Normal [facility] NR MRI CERVICAL WOon 020 NR MRI CERVICAL WO Patient Name: JORDI FRANCO STUDY: MRI CERVICAL WO; 07/26/2019 1:19 pm INDICATION: Other spondylosis with radiculopathy, lumbar region. COMPARISON: None. ACCESSION NUMBER(S): [id number] ORDERING CLINICIAN: MARY MOLINA TECHNIQUE: Sagittal and [...] foraminal narrowing. THIS EXAMINATION WAS INTERPRETED AT [facility] Electronically signed by: PAULINE PADILLA MD Normal [facility] BASIC METABOLIC PANELon 07-08 Anion gap [Moles/Vol] 11 mmol/L Normal 10 - 20 [facility] Comment on above: Performed By: #### B MP #### [address] [address] Calcium [Mass/Vol] 9.5 mg/dL Normal 8.6 - 10.3 [facility] Comment on above: Performed By: #### B MP #### [facility] [address] [place] [address] Chloride [Moles/Vol] 102 mmol/L Normal 98 - 107 [facility] Comment on above: Performed By: #### B MP #### [address] [address] Creatinine [Mass/Vol] 1.08 mg/dL Normal 0.50 - 1.30 [facility] Comment on above: Performed By: #### B MP #### [address] [place] [address] GFR- AM. >60 Normal >60 [facility] Comment on above: Result Comment: CALC ULATIONS OF ESTIMATED GFR ARE PERFORMED USING THE MDRD STUDY EQUATION FOR THE IDMS-TRACEABLE CREATININE METHODS. CLIN CHEM 2007;53:766-72 Performed By: #### B MP #### [address] [place] [address] GFR-NON AM. >60 Normal >60 [facility] Comment on above: Performed By: #### B MP #### [address] [place] [address] Glucose [Mass/Vol] 122 mg/dL High 74 - 99 [facility] Comment on above: Performed By: #### B MP #### [address] [place] [address] HCO3 (Bld) [Moles/Vol] 31 mmol/L Normal 21 - 32 [facility] Comment on above: Performed By: #### B MP #### [address] [place] [address] Potassium [Moles/Vol] 4.6 mmol/L Normal 3.5 - 5.3 [facility] Comment on above: Performed By: #### B MP #### [address] [place] [address] Sodium [Moles/Vol] 139 mmol/L Normal 136 - 145 [facility] Comment on above: Performed By: #### B MP #### [address] [address] Urea nitrogen [Mass/Vol] 19 mg/dL Normal 6 - 23 [facility] Comment on above: Performed By: #### B MP #### [address] [place] [address] HGB + HCTon 07-21-2019 Hematocrit (Bld) [Volume fraction] 45.4 % Normal 41.0 - 52.0 [facility] Comment on above: Performed By: #### H H #### [address] [place] [address] Hemoglobin (Bld) [Mass/Vol] 13.9 g/dL Normal 13.5 - 17.5 [facility] Comment on above: Performed By: #### H H #### [facility] [address] [place] [address] Vital Signs Date Time Vital Sign Value Performing Clinician Facility 11-04-2023 14:49-0400 Body height 176.53 cm [facility] 11-04-2023 14:49-0400 Body mass index (BMI) [Ratio] 28.8 kg/m2 [facility] 11-04-2023 14:49-0400 Body temperature 98.4 [degF] [facility] 11-04-2023 14:49-0400 Body weight 89.81 kg [facility] 11-04-2023 14:49-0400 Heart rate 62 /min [facility] 11-04-2023 14:49-0400 Respiratory rate 18 /min [facility] 11-04-2023 14:49-0400 SaO2% (BldA) [Mass fraction] 97 % [facility] 06-30-2023 13:35-0500 Body height 177.8 cm Clara Aranza Other [facility] Other 06-30-2023 13:35-0500 Body mass index (BMI) [Ratio] 28.75 kg/m2 Clara Aranza Other [facility] Other 06-30-2023 13:35-0500 Body temperature 97.5 [degF] Clara Aranza Other [facility] Other 06-30-2023 13:35-0500 Body weight 90.9 kg Clara Aranza Other [facility] Other 06-30-2023 13:35-0500 Diastolic blood pressure 74 mm[Hg] Clara Cobian Other [facility] Other 01-24-2024 13:35-0500 Respiratory rate 20 /min Clara Cobian Other [facility] Other 06-30-2023 13:35-0500 SaO2% (BldA) [Mass fraction] 97 % Clara Cobian Other [facility] Other 06-30-2023 13:35-0500 Systolic blood pressure 124 mm[Hg] Clara Tomlinsonmond Other [facility] Other 05-03-2023 11:10-0500 Blood Pressure Location MP MICHELLE [facility] 05-03-2023 11:10-0500 Diastolic blood pressure 60 mm[Hg] MP MICHELLE [facility] 05-03-2023 11:10-0500 Heart rate 82 /min MP MICHELLE [facility] 05-03-2023 11:10-0500 Respiratory rate 16 /min MP MICHELLE [facility] 05-03-2023 11:10-0500 SaO2% (BldA) [Mass fraction] 94 % MP MICHELLE [facility] 05-03-2023 11:10-0500 Systolic blood pressure 130 mm[Hg] MP MICHELLE [facility] 04-22-2023 14:20-0500 Body height 177.8 cm Lisa Archibald Other [facility] Other 04-22-2023 14:20-0500 Body mass index (BMI) [Ratio] 28.98 kg/m2 Lisa Archibald Other [facility] Other 04-22-2023 14:20-0500 Body temperature 98.4 [degF] Lisa Archibald Other [facility] Other 04-22-2023 14:20-0500 Body weight 91.63 kg Lisa Archibald Other [facility] Other 04-22-2023 14:20-0500 Diastolic blood pressure 73 mm[Hg] Lisa Archibald Other [facility] Other 04-22-2023 14:20-0500 Respiratory rate 18 /min Lisa Archibald Other [facility] Other 04-22-2023 14:20-0500 SaO2% (BldA) [Mass fraction] 97 % Lisa Archibald Other [facility] Other 04-22-2023 14:20-0500 Systolic blood pressure 136 mm[Hg] Lisa Archibald Other [facility] Other 04-11-2023 12:31-0500 Diastolic blood pressure 88 mm[Hg] [facility] 04-11-2023 12:31-0500 Heart rate 101 /min [facility] 04-11-2023 12:31-0500 Mean blood pressure 108 mm[Hg] [facility] 04-11-2023 12:31-0500 Respiratory rate 55 /min [facility] 04-11-2023 12:31-0500 SaO2% (BldA) [Mass fraction] 95 % [facility] 04-11-2023 12:31-0500 Systolic blood pressure 147 mm[Hg] [facility] 04-11-2023 12:15-0500 Hourly Rounding [facility] 04-11-2023 12:00-0500 Diastolic blood pressure 77 mm[Hg] [facility] 04-11-2023 12:00-0500 Heart rate 97 /min [facility] 04-11-2023 12:00-0500 Mean blood pressure 102 mm[Hg] [facility] 04-11-2023 12:00-0500 Respiratory rate 67 /min [facility] 04-11-2023 12:00-0500 SaO2% (BldA) [Mass fraction] 94 % [facility] 04-11-2023 12:00-0500 Systolic blood pressure 152 mm[Hg] [facility] 04-11-2023 11:00-0500 Diastolic blood pressure 86 mm[Hg] [facility] 04-11-2023 11:00-0500 Heart rate 93 /min [facility] 04-11-2023 11:00-0500 Mean blood pressure 107 mm[Hg] [facility] 04-11-2023 11:00-0500 Respiratory rate 13 /min [facility] 04-11-2023 11:00-0500 Systolic blood pressure 149 mm[Hg] [facility] 04-11-2023 10:15-0500 gluc 100 mg/dL [facility] 04-11-2023 10:15-0500 gluc [facility] 04-11-2023 09:46-0500 Body temperature 97.7 [degF] [facility] 04-11-2023 09:46-0500 Heart rate 104 /min [facility] 04-11-2023 09:46-0500 Respiratory rate 20 /min [facility] 02-16-2023 11:25-0400 Blood Pressure Location IVONNE GRANT [facility] 02-16-2023 11:25-0400 Diastolic blood pressure 76 mm[Hg] IVONNE GRANT [facility] 02-16-2023 11:25-0400 Heart rate 68 /min IVONNE CASTELLONRY [facility] 02-16-2023 11:25-0400 Respiratory rate 16 /min IVONNE GRANT [facility] 02-16-2023 11:25-0400 Systolic blood pressure 134 mm[Hg] IVONNE GRANT [facility] 01-14-2023 13:10-0400 Body height 177.8 cm Barbara Warner [employer]ER.BENJAMIN, DNP Work Phone: [facility] 01-14-2023 13:10-0400 Body weight 90.27 kg Barbara [place] [employer]ER.BENJAMIN DNP Work Phone: [facility] 01-14-2023 13:10-0400 Diastolic blood pressure 74 mm[Hg] Barbara Jaron [employer].BENJAMIN DNP Work Phone: [facility] 01-14-2023 13:10-0400 Heart rate 95 /min Barbara [place] [employer].BENJAMIN, DNP Work Phone: [facility] 01-14-2023 13:10-0400 Systolic blood pressure 120 mm[Hg] Barbara Jaron [employer].BENJAMIN, DNP Work Phone: [facility] 12-16-2022 13:28-0400 Body height 177.8 cm Mary Jo Olvera [employer]BR[employer]ING DEALER.DE ALCHOLIZER Work Phone: [facility] 12-16-2022 13:28-0400 Body temperature 98.4 [degF] Mary Jo Laffey [employer]ER.DE ALCHOLIZER Work Phone: [facility] 12-16-2022 13:28-0400 Body weight 87.82 kg Mary Jo Olvera [employer].DE ALCHOLIZER Work Phone: [facility] 12-16-2022 13:28-0400 Diastolic blood pressure 72 mm[Hg] Mary Jo Olvera [employer]ER.DE ALCHOLIZER Work Phone: [facility] 12-16-2022 13:28-0400 Heart rate 76 /min Mary Jo Olvera [employer]ER.DE ALCHOLIZER Work Phone: [facility] 12-16-2022 13:28-0400 SaO2% (BldA) [Mass fraction] 97 % Mary Jo Olvera [employer] DEALER.DE ALCHOLIZER Work Phone: [facility] 12-16-2022 13:28-0400 Systolic blood pressure 102 mm[Hg] Mary Jo Olvera [employer]ER.DE ALCHOLIZER Work Phone: [facility] 12-03-2022 10:04-0400 Body height 177.8 cm [facility] Work Phone: [facility] 12-03-2022 10:04-0400 Body temperature 99 [degF] [facility] Work Phone: [facility] 12-03-2022 10:04-0400 Body weight 91.63 kg [facility] Work Phone: [facility] 12-03-2022 10:04-0400 Diastolic blood pressure 71 mm[Hg] [facility] Work Phone: [facility] 12-03-2022 10:04-0400 Heart rate 69 /min [facility] Work Phone: [facility] 12-03-2022 10:04-0400 Respiratory rate 14 /min [facility] Work Phone: [facility] 12-03-2022 10:04-0400 SaO2% (BldA) [Mass fraction] 97 % [facility] Work Phone: [facility] 06-29-2023 10:04-0400 Systolic blood pressure 119 mm[Hg] [facility] Work Phone: [facility] 10-19-2022 15:15-0400 Diastolic blood pressure 60 mm[Hg] Savanna Zhang MD Work Phone: [facility] 10-19-2022 15:15-0400 Heart rate 60 /min Savanna Zhang MD Work Phone: [facility] 10-19-2022 15:15-0400 Respiratory rate 38 /min Savanna Zhang MD Work Phone: [facility] 10-19-2022 15:15-0400 SaO2% (BldA) [Mass fraction] 92 % Savanna Zhang MD Work Phone: [facility] 10-19-2022 15:15-0400 Systolic blood pressure 118 mm[Hg] Savanna Zhang MD Work Phone: [facility] 10-19-2022 12:15-0400 Body temperature 98.4 [degF] Savanna Zhang MD Work Phone: [facility] 10-05-2022 08:49-0400 Body height 177.8 cm Savanna Zhang MD Work Phone: [facility] 10-05-2022 08:49-0400 Body weight 93.08 kg Savanna Zhang MD Work Phone: [facility] 10-05-2022 08:49-0400 Diastolic blood pressure 62 mm[Hg] Savanna Zhang MD Work Phone: [facility] 10-05-2022 08:49-0400 Heart rate 62 /min Savanna Zhang MD Work Phone: [facility] 10-05-2022 08:49-0400 Systolic blood pressure 130 mm[Hg] Savanna Zhang MD Work Phone: [facility] 07-20-2022 14:01-0500 Blood Pressure Location ISABELA HAMLIN [facility] 07-20-2022 14:01-0500 Diastolic blood pressure 72 mm[Hg] ISABELA SIDELL [facility] 07-20-2022 14:01-0500 Heart rate 56 /min ISABELA SIDELL [facility] 07-20-2022 14:01-0500 SaO2% (BldA) [Mass fraction] 94 % ISABELA SIDELL [facility] 07-20-2022 14:01-0500 Systolic blood pressure 140 mm[Hg] ISABELA SIDELL [facility] 04-22-2022 13:10-0500 Blood Pressure Location Janel Klonk [facility] 04-22-2022 13:10-0500 Heart rate 134 /min Janel Klonk [facility] 04-22-2022 13:10-0500 Respiratory rate 74 /min Janel Klonk [facility] 04-22-2022 13:10-0500 SaO2% (BldA) [Mass fraction] 96 % Janel Klonk [facility] 04-02-2022 07:57-0400 Body height 175.3 cm Savanna Zhang MD Work Phone: [facility] 04-02-2022 07:57-0400 Body weight 87.09 kg Savanna Zhang MD Work Phone: [facility] 04-02-2022 07:57-0400 Diastolic blood pressure 68 mm[Hg] Savanna Zhang MD Work Phone: [facility] 04-02-2022 07:57-0400 Heart rate 74 /min Savanna Zhang MD Work Phone: [facility] 04-02-2022 07:57-0400 Systolic blood pressure 136 mm[Hg] Savanna Zhang MD Work Phone: [facility] Encounters Encounter Date Encounter Type Care Provider Facility Start: 06-22-2024 End: 06-22-2024 Office outpatient visit 15 minutes Paradise Tyler MD Work Phone: [facility] Comment on above: Melanocytic nevi of trunk (Primary Dx); Angioma of skin; Lentigines; Seborrheic keratosis; History of malignant melanoma of skin Start: 06-22-2024 End: 06-22-2024 ambulatory PARADISE TYLER Not Available Start: 06-22-2024 End: 06-22-2024 Bambonathalia Tyler MD Work Phone: [facility] Start: 06-22-2024 End: 06-22-2024 Bamboo flowsbceky Tyler MD Work Phone: [facility] Start: 05-10-2024 End: 05-10-2024 ambulatory CHAITANYA WATKINS Facility:[facility] Start: 05-10-2024 End: 05-10-2024 Patient encounter procedure Chaitanya Watkins DPM Work Phone: Orthopaedics Comment on above: Onychomycosis (Prima ry Dx); Pain in toes of both feet Start: 05-09-2024 ambulatory Raul Martinez y:FM [facility] Start: 03-09-2024 End: 03-10-2024 Refill Floyd Spaulding MD Work Phone: Cardiology Comment on above: Refill Request Start: 02-22-2024 End: 02-22-2024 ambulatory IVONNE GRANT Facility:[facility] Start: 02-22-2024 End: 02-22-2024 Patient encounter procedure IVONNE GRANT [facility] Start: 02-17-2024 End: 02-17-2024 Bamboo flowsheet Rebekah Marquez [employer]ER-DE ALCHOLIZER Work Phone: [facility] Start: 02-17-2024 End: 02-17-2024 Bamboo flowsheet Rebekah Marquez [employer]ER-DE ALCHOLIZER Work Phone: [facility] Start: 02-17-2024 End: 02-17-2024 Office outpatient visit 15 minutes Rebekah Marquez [employer]-DE ALCHOLIZER Work Phone: [facility] Comment on above: Neoplasm of skin Start: 02-17-2024 End: 02-17-2024 ambulatory REBEKAH MARQUEZ Not Available Start: 02-08-2024 End: 02-08-2024 ambulatory CHAITANYA WATKINS Facility:[facility] Start: 02-08-2024 End: 02-08-2024 Patient encounter procedure Chaitanya Watkins DPM Work Phone: Orthopaedics Comment on above: Onychomycosis (Prima ry Dx); Pain in toes of both feet Start: 12-27-2023 End: 12-27-2023 ambulatory PARADISE TYLER Not Available Start: 12-06-2023 End: 12-07-2023 ambulatory RAUL Uribe [facility] Start: 11-09-2023 Telephone encounter Floyd martin MD Work Phone: Cardiology Comment on above: Medication Problem; Patient Question Start: 11-04-2023 End: 11-04-2023 ambulatory [facility] Work Phone: Start: 11-04-2023 End: 11-04-2023 Patient encounter procedure [facility] [place] Work Phone: Start: 11-03-2023 End: 11-03-2023 ambulatory CHAITANYA WATKINS Facility:[facility] Start: 11-03-2023 End: 11-03-2023 Patient [...] Available Start: 08-05-2023 End: 08-05-2023 ambulatory CHAITANYA WATIKNS Facility:[facility] Start: 08-05-2023 End: 08-05-2023 Patient encounter procedure Chaitanya Watkins DPM Work Phone: Orthopaedics Comment on above: Onychomycosis (Prima ry Dx); Pain in toes of both feet Start: 07-08-2023 Refill Barbara rabago [employer]BENJAMIN, DNP Work Phone: Cardiology Comment on above: Refill Request Start: 07-07-2023 Telephone encounter Barbara Warner APRN.DE ALCHOLIZER, DNP Work Phone: Cardiology Comment on above: Medication Question Start: 06-30-2023 End: 06-30-2023 ambulatory Clara Cobian Other [facility] Other Start: 06-30-2023 Office outpatient vi sit 10 minutes Clara Cobian [facility] [place] Start: 06-04-2023 End: 06-04-2023 ambulatory FLOYD SPAULDING M.D. Facility:[facility] Start: 05-12-2023 ambulatory Cassie Bhatti RT(R) Rad iology Comment on above: Radiology XR Start: 05-12-2023 End: 05-12-2023 Patient encounter procedure Cassie Bhatti RT(R) NEHAL JAMES Comment on above: Pain in toes of both feet (Primary Dx) Equinus contracture of ankle (Primary Dx); Metatarsalgia of both feet Start: 05-12-2023 End: 05-12-2023 Subsequent hospital visit by physician Sammie Zavala 1 Work Phone: Radiology Comment on above: Pain [R52] Start: 05-05-2023 End: 05-05-2023 Patient encounter procedure Chaitanya Watkins DPM Work Phone: Orthopaedics Comment on above: Onychomycosis (Prima ry Dx); Pain in toes of both feet Start: 05-03-2023 End: 05-03-2023 ambulatory MP MARTINEZ Facility:[facility] Start: 05-03-2023 End: 05-03-2023 Patient encounter procedure MP MARTINEZ [facility] [place] Start: 04-22-2023 End: 04-22-2023 ambulatory Lisa Archibald Other [facility] Other Start: 04-22-2023 Office outpatient vi sit 15 minutes Lisa Archibald [facility] [place] Start: 04-11-2023 End: 04-11-2023 Emergency department patient visit Jh Johnson Marlene [facility] Start: 02-16-2023 End: 02-16-2023 Patient encounter procedure IVONNE GRANT [facility] Start: 01-27-2023 End: 01-27-2023 Patient encounter procedure Chaitanya Watkins DPM Work Phone: Orthopaedics Comment on above: Onychomycosis (Prima ry Dx); Pain in toes of both feet Start: 01-25-2023 Ruma Zhang MD Work Phone: Cardiology Start: 01-14-2023 End: 01-14-2023 Patient encounter procedure Barbara Warner APRN.DE ALCHOLIZER, DNP Work Phone: [facility] Comment on above: Paroxysmal atrial fi brillation (HCC) (Primary Dx); Nonrheumatic mitral valve regurgitation; Nonrheumatic aortic valve stenosis; Essential hypertension; S/P MVR (mitral valve replacement) Start: 01-14-2023 End: 01-14-2023 ambulatory BARBARA WARNER Facility:[facility] Start: 01-06-2023 ambulatory Zari Cobb RN [facility] Start: 12-16-2022 End: 12-16-2022 Patient encounter procedure Mary Jo Chan Duynadyawyatt STOCKBROKING DEALER.DE ALCHOLIZER Work Phone: Cardiothoracic Comment on above: S/P [...] surgery center Chaitanya Watkins DPM Work Phone: [facility] Start: 12-03-2022 End: 12-03-2022 Admission to same [...] Work Phone: Case Management Comment on above: Freelance Writer - O ther (Care Continuum Advisor Assessment [...] by physician Savanna Zhang MD Work Phone: [facility] Comment on above: [...] 07-20-2022 Patient encounter procedure ISABELA W GALI [facility] Start: 04-22-2022 End: 04-22-2022 Patient encounter procedure Janel Lou [facility] Start: 04-22-2022 End: 04-22-2022 Well adult monitoring check done Janelliz Johnsonkeny [facility] Start: 04-21-2022 End: 04-21-2022 Patient encounter procedure [...] encounter procedure DO Raul Dumont Work Phone: [facility] [address] Start: 12-25-2021 End: [...] Provider Start: 11-05-2022 Open heart surgery CLAUDIA GRANT Start: 10-19-2022 Echo transthorc r-t 2d w/wo m-mode rec f-up/lmtd Savanna Zhang MD Work Phone: Start: 10-19-2022 LVEF ECHO TRANSESOPHAGEAL Savanna Zhang MD Work Phone: Start: 12-30-2021 MRI of head DO Raul Dumont Work Phone: Start: 12-25-[address] DAENNA DUMONT Comment on above: Performed By: #### P SAD #### [facility] [address] [place] [address] Dr. Bryn Santo Start: 07-13-2018 Cystoscopy IVONNE ANN Ankle, left Janel Klonk Back Surgery Janel Klonk Colonoscopy Janel Klonk Extraction of cataract Ashle y Klonk Prostatectomy Janel Klonk Plan of Treatment Date Care Activity Detail Author Start: 06-29-2033 Urine microalbumin profile DTaP,Tdap,Td Vaccine (2 - Td or Tdap) [facility] Start: 12-16-2025 DIABETES SCREEN DIABETES SCREEN [facility] Start: 12-16-2025 Diabetes Screening Diabetes Screening [facility] Start: 12-08-2025 DIABETES SCREEN DIABETES SCREEN [facility] Start: 12-01-2025 DIABETES SCREEN DIABETES SCREEN [facility] Start: 04-15-2025 DIABETES SCREEN DIABETES SCREEN [facility] Start: 12-25-2024 End: 12-25-2024 Patient encounter procedure 12/25/2024 1:30 PM EDT Office Visit [facility] [address] [place] [id number] Paradise Tyler MD [address] [place] [address] [facility] Start: 08-10-2024 End: 08-10-2024 Patient encounter procedure 08/10/2024 9:45 AM EST Office Visit Orthopaedics [address] [place] [address] Chaitanya Watkins, DPM [address] [place] [address] 3 month nail care Orthopaedics Comment on above: 3 month nail care Start: 06-22-2024 End: 06-22-2024 Patient encounter procedure [facility] Comment on above: Arrived Start: 05-26-2024 End: 05-26-2024 Patient encounter procedure 05/26/2024 10:30 AM EST Office Visit Cardiology [address] [place], [place] [id number] Floyd Spaulding MD [address] [place], [place] [id number] 1 Year Follow uP Of Afib Cardiology Comment on above: 1 Year Follow uP Of Afib Start: 05-10-2024 End: 05-10-2024 Patient encounter procedure 05/10/2024 8:45 AM EST Office Visit Orthopaedics [address] [place] [address] Chaitanya Watkins, DPM [address] [place] [address] 3 month nail care Orthopaedics Comment on above: 3 month nail care Start: 03-16-2024 End: 03-16-2024 Patient encounter procedure 03/16/2024 9:30 AM EDT Office Visit [facility] [address] [place] [id number] Rebekah Marquez, STOCKBROKING DEALER-DE ALCHOLIZER [address] [place] [address] [facility] Start: 02-17-2024 End: 02-17-2024 Patient encounter procedure 02/17/2024 10:20 AM EDT Office Visit [facility] [address] [place] [id number] Rebekah Marquez, STOCKBROKING DEALER-DE ALCHOLIZER [address] [place] [address] Arrived [facility] Comment on above: Arrived Start: 02-08-2024 End: 02-08-2024 Patient encounter procedure 02/08/2024 11:00 AM EDT Office Visit Orthopaedics [address] [place] [address] Chaitanya Watkins, DPM [address] [place] [address] 3 month nail care Orthopaedics Comment on above: 3 month nail care Start: 02-06-2024 Covid-19 Vaccine ( season) Covid-19 Vaccine ( season) [facility] Start: 02-06-2024 Covid-19 Vaccine ( season) Covid-19 Vaccine ( season) [facility] Start: 02-06-2024 Influenza vaccination [facility] Start: 01-14-2024 DIABETES SCREEN DIABETES SCREEN [facility] Start: 11-03-2023 End: 11-03-2023 Patient encounter procedure 11/03/2023 8:45 AM EDT Office Visit Orthopaedics [address] [place] [address] Chaitanya Watkins DPM [address] [place] [address] 3 month nail care Orthopaedics Comment on above: 3 month nail care Start: 06-07-2023 Advance Directive Discussion Advance Directive Discussion [facility] Start: 06-07-2023 Behavioral Health Screening Behavioral Health Screening [facility] Start: 06-07-2023 Depression Assessment Depression Assessment [facility] Start: 02-05-2023 Covid-19 Vaccine () Covid-19 Vaccine () [facility] Start: 02-05-2023 Influenza vaccination [facility] Start: 10-01-2022 End: 04-02-2023 Echocardiography ECHO Cardiology Routine Nonrheumatic aortic valve stenosis Expected: 10/01/2022, Expires: 04/02/2023 [facility] Work Phone: Comment on above: Expected: 10/01/2022, Expires: Start: 06-07-2022 ADVANCE DIRECTIVE DISCUSSION ADVANCE DIRECTIVE DISCUSSION [facility] Start: 06-07-2022 DEPRESSION ASSESSMENT DEPRESSION ASSESSMENT [facility] Start: 02-05-2022 Influenza vaccination INFLUENZA (#1) [facility] Start: 06-07-2021 ADVANCE DIRECTIVE DISCUSSION ADVANCE DIRECTIVE DISCUSSION [facility] Start: 06-07-2021 DEPRESSION ASSESSMENT DEPRESSION ASSESSMENT [facility] Start: 04-01-2021 COVID-19 VACCINE (2 - Pfizer series) COVID-19 VACCINE (2 - Pfizer series) [facility] Start: 02-25-2021 COVID-19 VACCINE (2 - Pfizer 3-dose series) COVID-19 VACCINE (2 - Pfizer 3-dose series) [facility] Start: 02-25-2021 COVID-19 VACCINE (2 - Pfizer series) COVID-19 VACCINE (2 - Pfizer series) [facility] Start: 2014 RSV Vaccine (1 - 1-dose 75+ series) RSV Vaccine (1 - 1-dose 75+ series) [facility] Start: 2004 PNEUMOVAX AGE 65 AND OVER WITH 5YR LOOKBACK (#1) PNEUMOVAX AGE 65 AND OVER WITH 5YR LOOKBACK (#1) [facility] Start: 1999 RSV Vaccine (1 - 1-dose 60+ series) RSV Vaccine (1 - 1-dose 60+ series) [facility] Start: 1989 SHINGRIX VACCINE (1 of 2) SHINGRIX VACCINE (1 of 2) [facility] Start: 1958 Urine microalbumin profile [facility] Start: 1957 Depression Screening Depression Screening [facility] Start: 1945 PNEUMOCOCCAL: 65+ (1 - PCV) PNEUMOCOCCAL: 65+ (1 - PCV) [facility] End: 10-06-2023 ECG COMPLETE ECG COMPLETE ECG Routine Mitral regurgitation and aortic stenosis 1 Occurrences starting 10/05/2022 until 10/06/2023 [facility] Work Phone: Comment on above: 1 Occurrences starting 10/05/2022 until 10/06/2023 End: 01-15-2024 ECG COMPLETE ECG COMPLETE ECG Routine Paroxysmal atrial fibrillation (HCC) 1 Occurrences starting 01/14/2023 until 01/15/2024 [facility] Work Phone: Comment on above: 1 Occurrences starting 01/14/2023 until 01/15/2024 Ecg routine ecg w/le ast 12 lds w/i&r EKG WITH INTERPRETATION Cardiology Routine Paroxysmal atrial fibrillation (HCC) Ordered: 04/02/2022 [facility] Work Phone: Comment on above: Ordered: 04/02/2022 End: 10-06-2023 ECHO TRANSESOPHAGEAL ECHO TRANSESOPHAGEAL Cardiology Routine Mitral regurgitation and aortic stenosis 1 Occurrences starting 10/05/2022 until 10/06/2023 [facility] Work Phone: Comment on above: 1 Occurrences starting 10/05/2022 until 10/06/2023 Electrocardiogram EKG BIC Routin e 01/14/2023 1:15 PM EDT [facility] Immunizations Immunization Date Immunization Notes Care Provider Joellen porras 04-23-2022 influenza, injectabl e, quadrivalent, preservative free ISABELA TALBERT [facility] 04-23-2022 influenza virus vaccine, unspecified formulation Chaitanya Watkins DPM Work Phone: [facility] 02-04-2021 influenza virus vaccine, unspecified formulation Janel Klonk [facility] Comment on above: Result Comment: [facility] 02-04-2021 SARS-CoV-2 (COVID-19 ) mRNA BNT-162b2 vax Janel Klonk [facility] Comment on above: Result Comment: [facility] 06-07-2020 SARS-CoV-2 mRNA (tozinameran 5y-11y) vaccine Janel Klonk [facility] 03-12-2020 influenza, injectabl e, quadrivalent, preservative free Janel Klonk [facility] 03-15-2019 influenza virus vaccine, unspecified formulation Janel Klonk [facility] 06-03-2018 zoster vaccine recombinant Janel Klonk [facility] 03-04-2018 influenza virus vaccine, unspecified formulation Janel Klonk [facility] 03-04-2018 zoster vaccine recombinant Janel Klonk [facility] 03-07-2015 zoster vaccine recombinant Janel Klonk [facility] 06-07-2014 pneumococcal conjuga te vaccine, 13 valent Janel Klonk [facility] 06-21-2006 pneumococcal polysaccharide vaccine, 23 valent Janel Klonk [facility] 04-14-2002 pneumococcal polysaccharide vaccine, 23 valent Janel Klonk [facility] Payers Date Payer Category Payer [facility] [id number] 2016 [place] [id number] 2016-Present [phone] [address] [place] [address] Indemnity [id number] 2016 Unknown [id number] 2004 Medicare MEDICARE MEDICAR E A AND B [id number] 2004-Present [phone] [place] [address] Medicare [id number] 2004 Medicare [id number] 1959 Medicare [id number] 1959 Unknown [id number] 1939 Unknown [id number] [id number] 1939 Unknown [id number]. [id number] 1939 Unknown [id number] [id number]. 2.182 1939 Unknown [id number]. [id number] 1939 Unknown [id number] [id number]. [id number] 1939 Unknown [id number]. [id number] 1939 Unknown [id number]. 2.727 1939 Unknown [id number]. 2.1259 1939 Unknown [id number] [id number]. 2.1259 1939 Unknown [id number] [id number]. 2.1259 1939 Unknown [id number] [id number] Self-pay Self Pay [id number] Social History Date Type Detail Facility Start: 06-27-2021 End: 12-22-2022 Tobacco smoking status NHIS Never smoked tobacco [facility] Start: 07-08-2020 End: 06-04-2023 Alcohol intake Current non-drinker of alcohol (finding) [facility] Start: 1940 Sex Assigned At Male [facility] Start: 06-15-2014 End: 12-22-2022 Tobacco use and exposure Smokeless tobacco non-user [facility] Start: 02-24-2022 End: 03-06-2022 Exposure to SARS-CoV-2 (event) Unable to assess [facility] Start: 03-23-2022 End: 04-21-2022 Exposure to SARS-CoV-2 (event) Not sure [facility] Tobacco smoking status Never [facility] [place] Start: 12-16-2022 End: 06-22-2024 Sex Assigned At Male [facility] Start: 12-09-2022 History SDOH Financial 5 [facility] Start: 12-09-2022 History SDOH Food Worry 1 [facility] Start: 12-09-2022 History SDOH Transpo rt Med 2 [facility] Start: 12-16-2022 End: 06-22-2024 History of Social function [facility] (I/We) worried wheth er (my/our) food would run out before (I/we) got money to buy more. Never true [facility] In the past 12 month s, was there a time when you were not able to pay the mortgage or rent on time? No [facility] Start: 06-18-2020 Gender identity Identifies as male gender (finding) [facility] Start: 06-18-2020 Sexual orientation Choose not to dis close [facility] Start: 12-27-2023 End: 06-22-2024 Alcoholic beverage intake Lifetime non-drinker (finding) [facility] Start: 1940 Sex assigned at Not on file [facility] Medical Equipment Procedure Code Equipment Code Equipment Original Text Equipment Identifier Dates Subtalar Negro Imp lant 9mm - [id number] Start: 02-05-2010 Band Cline Ancor e 35mm 35mm Annuloplasty Flexible [place] Chordal Guide - [id number] Start: 12-04-2022 Patch Thk.5mm Johnnie vine Pericardial 28e40gx Cardiovascular Resilience Durable - [id number] Start: 12-04-2022 Valve Joe-Mariano Per[place]ount Magna Ease 25mm Low Profile Pericardial - [id number] Start: 12-04-2022 Functional Status Date Assessment Result Facility 02-22-2024 Functional Status N/A [facility] 05-03-2023 Functional Status N/A [facility] 04-11-2023 Functional Status N/A [facility] 02-16-2023 Functional Status N/A [facility] 07-20-2022 Functional Status N/A [facility] 04-22-2022 Functional Status N/A [facility] Clinical Notes 10-06-2021 to 06-22-2024 Paradise Tyler MD - 06/22/2024 2:15 PM Chaitanya Hernández DPM - 05/10/2024 9:31 AM ESTTeleluis alfredo Law - Kim Garcia MA - 03/09/2024 2:07 PM EDT Note Date & Type Note Facility 06-22-2024 History of Present illness Narrative Images from the original note were not included. 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 Mensah at [facility] 06/25/2020 Number of Lymph Nodes Checked: 0 Location: Left forearm All pertinent medical history, medications, and allergies were reviewed. General Exam: alert , oriented to person, place, and time , normal affect, well appearing uses a cane Unaccompanied Areas not examined despite medical recommendation: below socks Scalp, Examined Right leg Examined Head, Face Examined Left leg Examined Neck Examined Right foot Not examined Chest Examined Left foot Not examined Back Examined Buttocks Examined Abdomen Examined Digits,nails: Examined Right arm Examined Left arm Examined Lymphatics: examined Hands Examined no cervical lymphadenopathy, no supraclavicular lymphadenopathy, no axillary lymphadenopathy 1. Melanocytic nevi of trunk Trunk Scattered evenly pigmented, alexandre to brown macules and papules, no suspicious features Counseled regarding these benign growths. Rarely, a nevus can develop into malignant melanoma, so any changing nevi should be promptly re-evaluated. 2. Angioma of skin Abdomen (Lower Torso, Anterior) Scattered willams-red papule(s). The patient was informed that angiomas are benign growths on the the skin. No treatment is necessary. 3. Lentigines Scattered alexandre macules in sun-exposed areas. The patient was informed that lentigines are benign pigmented lesions that occur on sun-exposed and sun-damaged skin. No treatment is necessary. Recommended regular use of broad spectrum sunscreen SPF 30 or higher 4. Seborrheic keratosis (3) Generalized, Left Lower Back, Torso - Posterior (Back) Stuck on verrucous, alexandre-brown papules and plaques. Patient was counseled regarding these benign growths. Removal is normally not necessary, but they may be removed if they are symptomatic or for cosmetic reasons. 5. History of malignant melanoma of skin Left Forearm - Anterior No evidence of recurrence at melanoma scar. The patient was counseled that scars from excisional sites of melanoma should be monitored closely for recurrence. The patient was instructed to contact the office for any new, changing, or symptomatic moles. The patient was also instructed to contact the office for any new lesions that develop within or around the previous melanoma scar. Next Visit: 6 months skin exam documented in this encounter [facility] 05-10-2024 Note HNO ID: [id number] Author: CHAITANYA WATKINS DPM Service: ? Author [...] is current for today. Chaitanya Watkins D.P.M. [facility] 05-10-2024 History of Present illness Narrative SUBJECTIVE: [...] Chaitanya Watkins D.P.M. documented in this encounter [facility] 03-09-2024 Telephone encounter Note Pharmacy electronic RX [...] scheduled for: 05/26/2024 Kim Garcia MA 03/09/2024 [facility] 03-09-2024 Miscellaneous Notes Pharmacy electronic RX request [...] 2024 1:58 PM documented in this encounter [facility] 03-09-2024 Telephone encounter Note Prescription Refill Information [...] Smooth Gaspar March 09, 2024 1:58 PM [facility] 02-23-2024 Note Patient Education Urology Benign Prostatic [...] Follow these instructions at home: ? Take [id number] and prescription medicines only as told by [...] develop side effec (more content not included)... [facility] 02-17-2024 History of Present illness Narrative Images [...] month, follow up documented in this encounter [facility] 02-08-2024 Note HNO ID: [id number] Author: CHAITANYA WATKINS DPM Service: ? Author [...] is current for today. Chaitanya Watkins D.P.M. [facility] 02-08-2024 History of Present illness Narrative SUBJECTIVE: [...] Chaitanya Watkins D.P.M. documented in this encounter [facility] 11-09-2023 Telephone encounter Note Tried to reach patient by phone. Left message to return call to office Clara Hernandez RN [facility] 11-09-2023 Miscellaneous Notes Tried to reach patient by phone. Left message to return call to office Clara Hernandez RN November 09, 2023 [id number] Patient Name: Jordi Franco Contact Information: [phone] (home) [phone] (cell) Reason For Call: Medication Issue/Question: Xerelto Physician:Floyd Spaulding M.D. Additional Comments: Pt has parkinson's and is falling a lot. Please revisit Rx dosage roberta of falls. Please advise. Is it ok to leave detailed message on voice mail : Yes Requested Prescriptions No prescriptions requested or ordered in this encounter Radha Love documented in this encounter [facility] 11-09-2023 Telephone encounter Note November 09, 2023 [id number] Patient Name: Jordi Franco Contact Information: [phone] (home) [phone] (cell) Reason For Call: Medication Issue/Question: Xerelto Physician:Floyd Spaulding M.D. Additional Comments: Pt has parkinson's and is falling a lot. Please revisit Rx dosage roberta of falls. Please advise. Is it ok to leave detailed message on voice mail : Yes Requested Prescriptions No prescriptions requested or ordered in this encounter Radha Love [facility] 11-03-2023 Note HNO ID: [id number] Author: CHAITANYA WATKINS DPM Service: ? Author [...] is current for today. Chaitanya Watkins D.P.M. [facility] 11-03-2023 History of Present illness Narrative SUBJECTIVE: [...] Chaitanya Watkins D.P.M. documented in this encounter [facility] 10-19-2023 Telephone encounter Note Phoned patient and left detailed message that he can call the Lab. [facility] and gave number to call to order a duplicate pair of orthotics at cost. Natty hsieh MA [facility] 10-19-2023 Miscellaneous Notes Phoned patient and left [...] a prescription for foam inserts for Pt. States office can call Pt if a prescription is sent. documented in this encounter [facility] 10-19-2023 Telephone encounter Note -Pt's daughter (Sabiha) [...] a prescription for foam inserts for Pt. States office can call Pt if a prescription is sent. [facility] 08-05-2023 Note HNO ID: [id number] Author: CHAITANYA WATKINS DPM Service: ? Author [...] is current for today. Chaitanya Watkins D.P.M. [facility] 08-05-2023 History of Present illness Narrative SUBJECTIVE: [...] Chaitanya Watkins, Radha.P.M. documented in this encounter [facility] 07-08-2023 Miscellaneous Notes Pended new prescription. Caro Montalvo RN Patient called states he takes 25 mg Metoprolol once daily. Received fax from [facility] pharmacy for patient's metoprolol. Fax shows different dose from medication list. Spoke with patient who is currently not home. He will have his check the bottle and get back to us. Will need new prescription for metoprolol (see notes on 01/22/2023 had elevated heart rate in the 90's - in the 70's afterwards). Caro Montalvo RN documented in this encounter [facility] 06-30-2023 Evaluation note Encounter Date Diagnosis Assessment [...] the ER for worsening symptoms or concerns [facility] Other 12-29-2023 NoteHNO ID: [id number] Author: Floyd Spaulding MD Service: ? Author Type: Physician Type: Progress Notes Filed: 06/04/2023 10:50 AM Note Text: [facility] [place] Clemencia Dixon Department of Cardiovascular Medicine OUTPATIENT VISIT DATE June 04, 2023 OUTPATIENT VISIT TYPE Established PCP: Raul Dumont, IMPRESSION: Mr. Franco is a 82 year [...] cardiac surgery 12/04/2022 Cardiomegaly 09/22/2012 borderline Dyslipidemia [place] (hard of hearing) Hypertension Mitral regurgitation Pinched nerve in neck Spinal stenosis Stroke (HCC) 06/07/2007 TIA (transient ischemic attack) 06/07/2007 [facility] PAST SURGICAL HISTORY Procedure Laterality Date ATRIAL FIBRILLATION/FLUTTER ABLATION 2001,2003, 2012 - Radiofrequency ablation for atrial fibrillation BACK SURGERY HX Disc Surgery FOOT/TOES SURGERY PROC UNLISTED 02/05/2010 Performed by CHAITANYA WATKINS at [facility] GASTROCNEMIUS RECESSION 02/05/2010 Performed by CHAITANYA WATKINS at [facility] PAST SURGICAL HISTORY OF 2005 endoscopic [...] BP 134/70 (BP S (more content not included)...[facility] 05-12-2023 History of Present illness Narrative* Chaitanya Watkins, ROSALVA - 05/12/2023 9:54 AM EST Images from the original note were not included. PRIMARY SERVICE: [facility] SUBJECTIVE: He presents today with his present requesting new custom foot orthotics since his current orthotics are from 2014. He does have some left ankle issues. Medical: PAST MEDICAL HISTORY Diagnosis Date Ankle instability left Aortic stenosis Asthma exercise Atrial fibrillation (HCC) BPH (benign prostatic hyperplasia) Bronchitis Cancer (HCC) basal cell Cardiac insufficiency following cardiac surgery 12/04/2022 Cardiomegaly 09/22/2012 borderline Dyslipidemia [place] (hard of hearing) Hypertension Mitral regurgitation Pinched [...] UNLISTED 02/05/2010 [facility] REC[facility] 02/05/2010 Performed by CHAITANYA WATKINS at [facility] PAST SURGICAL HISTORY OF 2005 endoscopic [...] of SERVICE: 9:54 AM documented in this encounterChildren'S Hospital [facility]12-06-2023 History of Present illness Narrative* Magalys Shen Cast Tech - 05/12/2023 9:48 AM EST Patient was casted today for Custom Fitted Orthotics. BELA Corona documented in this encounterChildren'S Hospital Of [facility]12-06-2023 History of Present illness Narrative* Cassie Bhatti RT(R) - 05/12/2023 9:26 AM EST Radiology [...] IV DATA: Not applicable SIGNED BY: RT Ivonne(Silvio) May 12, 2023 9:26 AM documented in this encounterChildren'S Hospital Of [facility]11-29-2023 History of Present illness Narrative* Chaitanya Watkins [...] and is current for today. Diego WilliamsonP.M. documented in this encounterChildren'S Hospital Of [facility]11-16-2023 Evaluation note* Encounter Date Diagnosis Assessment Notes [...] understanding and is agreeable with treatment plan [facility] Other 11-05-2023 Hospital Discharge instructions Patient Education [...] balance is good. 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 Take cauw-dmw-rkqqmry and prescription medicines only as told by [...] provider. Document Revised: 04/28/2021 Document Reviewed: 04/28/2021 [employer] Patient Education 2022 [employer] Follow Up Care 04/11/2023 09:38:14 With:Raul DUMONT Address: [address] [facility] [place] [address]- [phone] Business (1) When:04/14/2023 12:22:08 Comments:Return to the emergency room if your dizziness recurs or any new symptoms. [facility]09-12-2023 Hospital Discharge instructions Patient Education 02/16/2023 [...] urethra. Follow these instructions at home: Take tvdh-ahs-vxlbknf and prescription medicines only as told by [...] provider. Document Revised: 12/10/2021 Document Reviewed: 12/10/2021 [employer] Patient Education 2022 [employer] Follow Up Care 12/29/2022 10:02:22 With:CHANTEL NORRIS, IVONNE Hernandez, URL Address: [address] [facility] [place] [address] When:Within 1 Year(s) Comments:w/MAGDA [facility] 08-23-2023 History of Present illness Narrative* [...] today. Chaitanya Watkins D.P.M. documented in this encounterChildren'S Hospital Of Columbus08-21-2023 Miscellaneous Notes* Telephone Encounter - Savanna Zhang MD - 01/25/2023 12:25 PM EDT Patient called for input on HR 90s, sinus on ECG, no significant sxs, has follow up appt in feb. documented in this encounterChildren'S Hospital Of Columbus08-10-2023 NoteHNO ID: [id number] Author: Barbara Warner APRN.DE ALCHOLIZER, DNP Service: ? Author Type: Nurse Practitioner Type: Progress Notes Filed: 01/14/2023 1:50 PM Note Text: [facility] [place] [facility] Department of Cardiovascular Medicine SECTION OF CLINICAL CARDIOLOGY OUTPATIENT VISIT DATE January 14, 2023 OUTPATIENT VISIT TYPE ESTABLISHED PRIMARY CARE PHYSICIAN: Raul Dumont [address] [facility] [place] [address] REFERRING PHYSICIAN: Hugo Solano [address] [facility] [address] CHIEF COMPLAINT: Established Patient and Hospital Follow [...] cardiac surgery 12/04/2022 Cardiomegaly 09/22/2012 borderline Dyslipidemia [place] (hard of hearing) Hypertension Mitral regurgitation Pinched nerve in neck Spinal stenosis Stroke (HCC) 06/07/2007 TIA (transient ischemic attack) 06/07/2007 [facility] PAST SURGICAL HISTORY Procedure Laterality Date ATRIAL FIBRILLATION/FLUTTER ABLATION 2001,2003, 2012 - Radiofrequency ablation for atrial fibrillation BACK SURGERY HX Disc Surgery FOOT/TOES SURGERY PROC UNLISTED 02/05/2010 Performed by CHAITANYA WATKINS at [facility] GASTROCNEMIUS RECESSION 02/05/2010 Performed by CHAITANYA WATKINS at [facility] PAST SURGICAL HISTORY OF 2005 endoscopic [...] mouth once daily for 7 days. mag qokmg-H5-efisbacc rt xt 500-3,000-150 mg-unit-mg tab Take by [...] unsure of dosage Chew (more content not included)...[facility]08-10-2023 History of Present illness Narrative* Barbara Warner APRN.BENJAMIN, RAMÓN - 01/14/2023 1:13 PM EDT Images from the original note were not included. [facility] [place] [facility] Department of Cardiovascular Medicine SECTION OF CLINICAL CARDIOLOGY OUTPATIENT VISIT DATE January 14, 2023 OUTPATIENT VISIT TYPE ESTABLISHED PRIMARY CARE PHYSICIAN: Raul Dumont [address] [place] [address] REFERRING PHYSICIAN: Hugo Solano [address] [facility] [address] CHIEF COMPLAINT: Established Patient and Hospital Follow [...] cardiac surgery 12/04/2022 Cardiomegaly 09/22/2012 borderline Dyslipidemia [place] (hard of hearing) Hypertension Mitral regurgitation Pinched nerve in neck Spinal stenosis Stroke (HCC) 06/07/2007 TIA (transient ischemic attack) 06/07/2007 [facility] PAST SURGICAL HISTORY Procedure Laterality Date ATRIAL FIBRILLATION/FLUTTER ABLATION 2001,2003, 2012 - Radiofrequency ablation for atrial fibrillation BACK SURGERY HX Disc Surgery FOOT/TOES SURGERY PROC UNLISTED 02/05/2010 Performed by CHAITANYA WATKINS at [facility] GASTROCNEMIUS RECESSION 02/05/2010 Performed by CHAITANYA WATKINS at [facility] PAST SURGICAL HISTORY OF 2006 endoscopic [...] mouth once daily for 7 days. mag sxbui-T2-mqmwjlwt rt xt 500-3,000-150 mg-unit-mg tab Take by [...] RV is adjacent to the inferior retrosternum. Director Of Sustainability: PSCB Transcribe Date/Time: Dec 01 2022 5:15P Dictated [...] 60%, appears well compensated. Normal coronaries by [facility] 11/2022, angina free, stable. Paroxsymal atrial fib, [...] for new symptoms Follow up with Dr. Spaulidng as scheduled I personally interviewed, confirmed and edited the above information if obtained by others. CONTACT INFORMATION: Barbara Warner APRN.RAMÓN ALEXANDER [facility] [address], [address] [place] [address] documented in this encounterChildren'S Hospital Of [facility]08-02-2023 History of Present illness Narrative* Zari Cobb RN - 01/06/2023 10:12 AM EDT QOL Call Tracking Documentation Follow-Up Type: Phone Call Call Attempt: 1st Attempt Call Status: Patient Refused (Requested to be removed from QoL Dashboard) documented in this encounterChildren'S Hospital Of [facility]07-12-2023 History of Present illness Narrative* Mary Jo Olvera APRN.CNP - 12/16/2022 1:00 PM EDT Images from the original note were not included. [facility] [place] [facility] Department of Cardiovascular Medicine DEPARTMENT [...] cardiac surgery 12/04/2022 Cardiomegaly 09/22/2012 borderline Dyslipidemia [place] (hard of hearing) Hypertension Mitral regurgitation Pinched nerve in neck Spinal stenosis Stroke (HCC) 06/07/2007 TIA (transient ischemic attack) 06/07/2007 [facility] PAST SURGICAL HISTORY Procedure Laterality Date ATRIAL FIBRILLATION/FLUTTER ABLATION 2001,2003, 2012 - Radiofrequency ablation for atrial fibrillation BACK SURGERY HX Disc Surgery FOOT/TOES SURGERY PROC UNLISTED 02/05/2010 Performed by CHAITANYA WATKINS at [facility] GASTROCNEMIUS RECESSION 02/05/2010 Performed by CHAITANYA WATKINS at [facility] PAST SURGICAL HISTORY OF 2005 endoscopic [...] TAKE 1 TABLET BY MOUTH EVERY DAY [facility]-crkjssag rt xt 500-3,000-150 mg-unit-mg tab Take by [...] LEFT AXIS DEVIATION Vent. 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 Call CTS OPD with [...] reviewed Discussed wound care Mary Jo Olvera APRN.DE ALCHOLIZER documented in this encounterChildren'S Hospital [facility]07-12-2023 History of Present illness Narrative* Rhonda Jarrell [...] 16, 2022 12:53 PM documented in this encounterChildren'S Hospital Of [facility]07-07-2023 Miscellaneous Notes* Telephone Encounter - Monique Vera RN - 12/11/2022 8:13 AM EDT [facility] Contact Center Inbound Phone Encounter DATE of SERVICE: 12/11/2022 TIME of SERVICE: 8:13 AM Status: Non-urgent, needs attention Service/Provider: Cardiac Surgery Brain Nieves M.D. Reason for call: Medication Issue/Question/Constipation Contact information: Sabiha (daughter) [phone] cell Resolution: Other [id number] Charge DE ALCHOLIZER Jessica Rivera CNP Comments: Daughter calling [facility] [...] of Resolution 8:13 AM documented in this encounterChildren'S Hospital Of [facility]07-06-2023 Miscellaneous Notes* Telephone Encounter - Mary Carmen Meier RN - 12/10/2022 11:56 AM EDT Called patient after recent discharge unable to leave voice message. documented in this encounterChildren'S Hospital Of [facility]07-02-2023 History of Past illness Narrative* Problem Noted [...] of this encounter (statuses as of 12/10/2022) [facility] History of Past illness Narrative* Problem Noted [...] of this encounter (statuses as of 12/11/2022) [facility]-02-[facility] History of Past illness Narrative* Problem Noted Date Diagnosed Date Resolved Date Acute blood loss anemia 12/06/2022 07/08/2022 Overview: History: postop Atelectasis 12/05/2022 12/07/2022 Overview: History: postop Volume overload 12/05/2022 12/07/2022 Overview: History: postop Encounter for preoperative a nesthesiology assessment for cardiac surgery 12/04/2022 On mechanically assisted ventilation 12/04/2022 12/05/2022 Cardiac insufficiency follow ing cardiac surgery 12/04/2022 12/06/2022 Overview: Postoperative pain 12/04/2022 Overview: History: postop Stress hyperglycemia 12/04/2022 023 Overview: History: postop documented as of this encounter (statuses as of 12/17/2022) [facility] History of Past illness Narrative* Problem Noted [...] of this encounter (statuses as of 12/18/2022) [facility] History of Past illness Narrative* Problem Noted [...] of this encounter (statuses as of 01/06/2023) [facility] History of Past illness Narrative* Problem Noted [...] of this encounter (statuses as of 01/14/2023) [facility] History of Past illness Narrative* Problem Noted [...] of this encounter (statuses as of 01/25/2023) [facility] History of Past illness Narrative* Problem Noted [...] of this encounter (statuses as of 01/27/2023) [facility] History of Past illness Narrative* Problem Noted [...] of this encounter (statuses as of 05/05/2023) [facility] History of Past illness Narrative* Problem Noted [...] of this encounter (statuses as of 05/12/2023) [facility] History of Past illness Narrative* Problem Noted [...] of this encounter (statuses as of 05/12/2023) [facility] History of Past illness Narrative* Problem Noted [...] 12/04/2022 Overview: History: postop Stress hyperglycemia 12/04/2022 07/03/ 023 Overview: History: postop Elevated blood pressure (not hypertension) 02/26/2014 01/14/2023 documented as of this encounter (statuses as of 07/09/2023) [facility] History of Past illness Narrative* Problem Noted [...] of this encounter (statuses as of 07/09/2023) [facility] History of Past illness Narrative* Problem Noted [...] of this encounter (statuses as of 07/13/2023) [facility] History of Past illness Narrative* Problem Noted [...] of this encounter (statuses as of 08/05/2023) [facility] History of Present illness Narrative* Brain Nieves MD - 12/03/2022 1:51 PM EDT Images from the original note were not included. [facility] [place] DEPARTMENT OF CARDIAC SURGERY OUTPATIENT VISIT DATE December 03, 2022 OUTPATIENT VISIT SERVICE DATE: 12/03/2022 SERVICE TIME: 1:51 PM PCP: Raul Dumont [address] [place] [address] Referring Physician: Savanna Zhang [facility] [address] [facility] [address] Patient Type: New Visit to Determine Surgery: [...] RV is adjacent to the inferior retrosternum. Director Of Sustainability: PSCB Transcribe Date/Time: Dec 01 2022 5:15P Dictated [...] record Brain Nieves MD documented in this encounterChildren'S Hospital Of [facility]06-29-2023 History of Present illness Narrative* Bindu Crisostomo [...] topic: Bactroban instructions given documented in this encounterChildren'S Hospital Of Columbus06-29-2023 History of Present illness Narrative* Jg Reed [...] (HCC) basal cell Cardiomegaly 09/22/2012 borderline Dyslipidemia [place] (hard of hearing) Hypertension Mitral regurgitation Pinched nerve in neck Spinal stenosis Stroke (HCC) 06/07/2007 TIA (transient ischemic attack) 06/07/2007 [facility] PAST SURGICAL HISTORY Procedure Laterality Date ATRIAL FIBRILLATION/FLUTTER ABLATION 2001,2003 BACK SURGERY HX Disc Surgery FOOT/TOES SURGERY PROC UNLISTED 02/05/2010 Performed by CHAITANYA WATKINS at [facility] GASTROCNEMIUS RECESSION 02/05/2010 Performed by CHAITANYA WATKINS at [facility] PAST SURGICAL HISTORY OF endoscopic plantar [...] 1 TABLET BY MOUTH EVERY DAY mag cmvox-I0-qgfrwvpn rt xt 500-3,000-150 mg-unit-mg tab Take by [...] RV is adjacent to the inferior retrosternum. Director Of Sustainability: PSCB Transcribe Date/Time: Dec 01 2022 5:15P Dictated [...] and consent discussed: yes. Patient / Responsible Democrat agrees to proceed: yes Patient / Surrogate agrees to blood products: Yes Instructions Given to Patient: Instructions located in the after visit summary. Patient given verbal and written preop instructions and voices comprehension and compliance. Signature: Jg Reed MD Patient Name: Jordi Franco Date: December 03, 2022 Time: 11:05 AM Pager/Contact #: documented in this encounterChildren'S Hospital Of Columbus06-27-2023 Miscellaneous Notes* Telephone Encounter - Moraima Solis [...] Instructions/Restrictions- instructed to be accompanied by adult special events driver at discharge Patient/Family Response Evaluation: Verbalizes understanding Follow Up Plan and Medication: As directed by physician Instruction/Supplemental Material Given: Cardiac catheterization instructions, procedure information, hospital information, hotel information. Instructed By Moraima Solis RN, RN. In Department of CARDIOLOGY. documented in this encounterChildren'S Hospital Of [facility]06-27-2023 History of Present illness Narrative* RT Angelica(R) [...] 2022 TIME: 1:50 PM documented in this encounterChildren'S Hospital Of Columbus06-19-2023 Miscellaneous Notes* Telephone Encounter - Maura Daigle RN - 11/23/2022 3:22 PM EDT CARE CONTINUUM ADVISOR ASSESSMENT PRIMARY CARE PHYSICIAN: Raul Dumont DO OR Surgery Date: 12/04/22 [facility] Appointment: 12/03/22 Health Insurance: Medicare A&B, [place] Financial Resources: Employed: Works [employer] Primary Contact: Extended Emergency Contact Information Primary Emergency Contact: Layla Franco Address: [facility] [place] [address] Relation: Spouse Secondary Emergency Contact: Td Franco Address: [address] [place] [address] [address] [place] [address] Relation: Son Other Important Patient Contacts: None Patient/Baby Attendant Stated Goals: To improve my functional status and To return home to life as it was Ward Clerk needed?: No Home Phone Primary Contact: NA [...] surgery/appointments?: Yes, plan to drive w/family to [place] Medication Adherence: Do you have any concerns with your prescription medication?: No Who do you use for pharmacy?: [id number] [place] [address] - [address] [facility] [phone] [place] [address] Pre-Hospital Baseline Mental Status: Alert & Oriented Informant: Self and Spouse What is your current functional status?: Perform ADLs independently, uses a cane or walking stick as needed. Equipment: Do you currently use any equipment at home for your medical condition or to help you get around? Cane - Straight Walking stick Active Services/Needs: None Do you have a community relations assistant contact through your insurance or WRAAA?: No Has the Patient Been in a Residential Facility in the Past 30 days? No FREEDOM OF CHOICE: Level of Care Discussed: Home Care, Residential Facility, Inpatient Rehab Facility, [facility], and Cardiac rehab Financial Disclosure Provided: No Financial Disclaimer Provided: Yes, regarding pre-cert / insurance authorization Provider List: Home Care and Residential Facility Provider list within the patient's requested geographic area shared with the patient/family: Yes - Within [address] miles of [address] [place] [address] PAC Provider Choices Collected Home Health: 1. [facility] 2. [facility] 3. [facility] 4. [facility]: [facility] Interventions: Discussed importance of active PCP relationship and follow up Discussed insurance risks, gaps, and programs available Advanced Directives Education Discussed reliable transportation needs for surgery and follow up appointments Discussed prescription medications adherence Maura Daigle RN documented in this encounterChildren'S Hospital Of Columbus06-06-2023 Miscellaneous Notes* Telephone Encounter - Haley Valdez - 11/10/2022 3:53 PM EDT INN * Telephone Encounter - Qian Castillo - 11/10/2022 2:49 PM EDT Insurance Card(s) scanned into [employer] Please register/advise Thank You! documented in this encounterChildren'S Hospital Of Columbus05-16-2023 History of Present illness Narrative* Chaitanya Watkins [...] today. Chaitanya Watkins D.P.M. documented in this encounterChildren'S Hospital Of Columbus05-15-2023 Surgical operation note* Brief Op Note - Savanna Zhang MD - 10/19/2022 2:20 PM EDT Images from the original note were not included. BRIEF OPERATIVE / PROCEDURE NOTE LOG ID: [id number] PROCEDURE DATE: 10/19/2022 PROCEDURE START TIME: 1:35 PM PROCEDURE END TIME: 2:10 PM PROCEDURALIST(S) AND PASSENGER CONDUCTOR(S): Surgeon(s) and Role: * Savanna Zhang MD [...] + atleast mod Savanna Zhang MD Staff Supervisor [place] Department Cotton Classer of Advanced Cardiac Imaging and Cardio-Oncology [facility] Pager: [phone] October 19, 2022 5:17 PM documented in this encounterChildren'S Hospital Of Columbus05-01-2023 Miscellaneous Notes* Telephone Encounter - Sherrell Alvarez [...] Coordinator Surgery Special Unit documented in this encounterChildren'S Hospital Of Columbus05-01-2023 Instructions* Patient Instructions* Savanna Zhang MD - 10/05/2022 9:52 AM EDT You have 2 heart valve conditions --mitral regurgitation and aortic stenosis To better define these valve conditions, we will plan on CELIA procedure We will touch base after CELIA procedure documented in this encounterChildren'S Hospital Of [facility]05-01-2023 History of Present illness Narrative* Savanna Zhang MD - 10/05/2022 9:30 AM EDT Images from the original note were not included. [facility] [place] [facility] Department of Cardiovascular Medicine SECTION OF CLINICAL CARDIOLOGY OUTPATIENT VISIT DATE October 05, 2022 OUTPATIENT VISIT TYPE ESTABLISHED PRIMARY CARE PHYSICIAN: Raul Dumont [address] [place] [address] CHIEF COMPLAINT: Cardiology Follow Up , Paroxysmal [...] (HCC) basal cell Cardiomegaly 09/22/12 borderline Dyslipidemia [place] (hard of hearing) Hypertension Pinched nerve in neck Spinal stenosis Stroke (HCC) 2007 TIA (transient ischemic attack) 2007 [facility] PAST SURGICAL HISTORY Procedure Laterality Date ATRIAL FIBRILLATION/FLUTTER ABLATION 2001,2003 FOOT/TOES SURGERY PROC UNLISTED 02/05/10 Performed by CHAITANYA WATKINS at [facility] GASTROCNEMIUS RECESSION 02/05/10 Performed by CHAITANYA WATKINS at [facility] PAST SURGICAL HISTORY OF endoscopic plantar [...] Change Sulfa (Sulfonamide * Unknown MEDICATIONS: mag newkh-C7-ttulkrum rt xt 500-3,000-150 mg-unit-mg tab^Take by mouth.^Disp: [...] Dyspnea in the Emergency Department (PRIDE) Study. [place] Journal of Cardiology 2005:95:948 to 954. Levon [...] time CONTACT INFORMATION: Savanna Zhang MD Staff Supervisor Porcelain Department Cotton Classer of Advanced Cardiac Imaging and Cardio-Oncology [facility] Pager: [phone] October 05, 2022 documented in this encounterChildren'S Hospital Of Columbus04-28-2023 Miscellaneous Notes* Telephone Encounter - Cristine Lobo - 10/02/2022 8:55 AM EDT Pharmacy electronic [...] 02/15/2023 Cristine Diamond 10/02/2022 documented in this [facility] History of Present illness Narrative* Chaitanya [...] today. Chaitanya Watkins D.P.M. documented in this encounterChildren'S Hospital Of Columbus11-15-2022 History of Present illness Narrative* Chaitanya Watkins [...] today. Chaitanya Watkins, Radha.P.M. documented in this encounterChildren'S Hospital Of Columbus10-27-2022 Instructions* Patient Instructions* Savanna Zhang MD - [...] our follow up appointment documented in this encounterChildren'S Hospital Of Columbus10-27-2022 History of Present illness Narrative* Savanna Zhang MD - 04/02/2022 8:27 AM EDT Images from the original note were not included. [facility] [place] [facility] Department of Cardiovascular Medicine SECTION OF CLINICAL CARDIOLOGY OUTPATIENT VISIT DATE April 02, 2022 OUTPATIENT VISIT TYPE NEW PRIMARY CARE PHYSICIAN: Raul Dumont [address] [place] [address] REFERRING PHYSICIAN: Aortic stenosis CHIEF COMPLAINT: Consult [...] (HCC) basal cell Cardiomegaly 09/22/12 borderline Dyslipidemia [place] (hard of hearing) Hypertension Pinched nerve in neck Spinal stenosis Stroke (HCC) 2007 TIA (transient ischemic attack) 2007 [facility] PAST SURGICAL HISTORY Procedure Laterality Date ATRIAL FIBRILLATION/FLUTTER ABLATION 2001,2003 FOOT/TOES SURGERY PROC UNLISTED 02/05/10 Performed by CHAITANYA WATKINS at [facility] GASTROCNEMIUS RECESSION 02/05/10 Performed by CHAITANYA WATKINS at [facility] PAST SURGICAL HISTORY OF endoscopic plantar [...] (Preliminary result) Impression: SINUS RHYTHM WITH SHORT IA LEFT AXIS DEVIATION RSR' PATTERN IN V1 [...] Dyspnea in the Emergency Department (PRIDE) Study. [place] Journal of Cardiology 2005:95:948 to 954. Levon [...] visit CONTACT INFORMATION: Savanna Zhang MD Staff Supervisor Porcelain Department Cotton Classer of Advanced Cardiac Imaging and Cardio-Oncology [facility] Pager: [phone] April 02, 2022 11:10 AM documented in this encounterChildren'S Hospital Of Columbus09-30-2022 Miscellaneous Notes* Telephone Encounter - Clara Hernandez [...] inthe Aorta? Jordi Franco documented in this encounterChildren'S Hospital Of Columbus05-02-2022 Miscellaneous Notes* Telephone Encounter - Shelby Dhaliwal [...] Shelby Dhaliwal MA 10/06/2021 documented in this encounterWatertown ClinicEvaluation + Plan note Future Appointments Appointment Date:02/15/2023 10:45:00 AM Scheduled Provider:Osmel GARCIA MD [facility] Type:URO Office Visit Appointment Date:04/29/2023 11:00:00 AM Scheduled Provider: Location:[facility] Appointment Type:FM Medicare Wellness Subsequent [facility] Evaluation + Plan note Future Appointments Appointment Date:02/15/2023 10:45:00 AM Scheduled Provider:Osmel GARCIA MD [facility] Appointment Type:URO Office Visit Appointment Date:04/29/2023 11:00:00 AM Scheduled Provider: Location:[facility] Appointment Type:FM Medicare Wellness Subsequent Future Scheduled Tests Laboratory* Basic Metabolic Panel 07/20/22 * CBC w/ Auto Diff 07/20/22 * Thyroid Stimulating Hormone 07/20/22 [facility] Evaluation + Plan note Future Appointments Appointment Date:04/29/2023 11:00:00 AM Scheduled Provider: Location:[facility] Appointment Type:FM Medicare Wellness Subsequent Appointment Date:02/22/2024 10:00:00 AM Scheduled Provider:IVONNE GRANT PA-C Location:[facility] Appointment Type:URO Office Visit Diagnostic Tests Pending * PSA Total 02/16/23 Future Scheduled Tests Laboratory* Basic Metabolic Panel 07/20/22 * CBC w/ Auto Diff 07/20/22 * Thyroid Stimulating Hormone 07/20/[address] [facility] evaluation + Plan note Future Appointments Appointment Date:05/03/2023 11:00:00 AM Scheduled Provider: Location:[facility] Appointment Type:FM Medicare Wellness Subsequent Appointment Date:02/22/2024 10:00:00 AM Scheduled Provider:IVONNE GRANT PA-C Location:[facility] Appointment Type:URO Office Visit Future Scheduled Tests Laboratory* Basic Metabolic Panel 07/20/22 * CBC w/ Auto Diff 07/20/22 * Thyroid Stimulating Hormone [facility] Appointment Date:02/22/2024 10:00:00 AM Scheduled Provider:IVONNE GRANT PA-C Location:[facility] Appointment Type:URO Office Visit Appointment Date:05/09/2024 11:00:00 AM Scheduled Provider: Location:[facility] Appointment Type: Medicare Wellness Subsequent Future Scheduled Tests Laboratory* Basic Metabolic Panel 07/20/22 * CBC w/ Auto Diff 07/20/22 * Thyroid Stimulating Hormone 07/20/22 [facility] Evaluation noteNo assessment information available [facility] Work Phone: Evaluation note* Diagnosis Paroxysmal atrial fibrillation (HCC)- Primary Atrial fibrillation Nonrheumatic aortic valve stenosis Aortic valve disorders Primary hypertension Unspecified essential hypertension Hyperlipidemia with target LDL less than 70 Other and unspecified hyperlipidemia [facility] Diagnosis Onychomycosis- Primary Dermatophytosis of nail Pain in toes of both feet [facility] Diagnosis Onychomycosis- Primary Dermatophytosis of nail Pain in toes of both feet [facility] Diagnosis Mitral regurgitation and aortic [...] valve disease unspecified [facility] Diagnosis Onychomycosis- Primary Dermatophytosis of [...] [facility] Diagnosis Encounter for preoperative anesthesiology assessment for cardiac surgery- Primary Atherosclerosis of aorta (HCC) Atherosclerosis of aorta Paroxysmal atrial fibrillation (HCC) Atrial fibrillation Encounter for preprocedural cardiovascular examination Pre-operative cardiovascular examination Pre-operative cardiovascular examination Aortic valve disorder Aortic valve disorders Paroxysmal atrial fibrillation (HCC) Atrial fibrillation Mitral valve disorder Mitral valve disorders [facility] Diagnosis Nonrheumatic aortic valve stenosis- Primary Aortic valve disorders Encounter for preprocedural cardiovascular examination Pre-operative cardiovascular examination Pre-operative cardiovascular examination Aortic valve disorder Aortic valve disorders Paroxysmal atrial fibrillation (HCC) Atrial fibrillation Mitral valve disorder Mitral valve disorders [facility] Diagnosis Surgery follow-up Follow-up examination, following unspecified surgery [facility] Diagnosis S/P aortic valve replacement- Primary Heart valve replaced by other means S/P mitral valve repair Other postprocedural status S/P patent foramen ovale closure Other postprocedural status Paroxysmal atrial fibrillation (HCC) Atrial fibrillation Essential hypertension Unspecified essential hypertension [facility] Diagnosis Paroxysmal atrial fibrillation (HCC)- Primary Atrial fibrillation Nonrheumatic mitral valve regurgitation Nonrheumatic aortic valve stenosis Aortic valve disorders Essential hypertension Unspecified essential hypertension S/P MVR (mitral valve replacement) Heart valve replaced by other means [facility] Diagnosis Onychomycosis- Primary Dermatophytosis of nail Pain in toes of both feet [facility] Diagnosis Onychomycosis- Primary Dermatophytosis of nail Pain in toes of both feet [facility] Diagnosis Pain in toes of both feet- Primary [facility] Diagnosis 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 Enthesopathy of ankle and tarsus, unspecified [facility] Pain Generalized pain [facility] Diagnosis Onychomycosis- Primary Dermatophytosis of nail Pain in toes of both feet [facility] Diagnosis Neoplasm of skin [facility]* Diagnosis Melanocytic nevi of trunk- Primary Angioma of skin Lentigines Seborrheic keratosis History of malignant melanoma of skin Personal history of malignant melanoma of skin documented [facility] Narrative - Reported* Type Description Date Medical History anxiety Medical History hypercholesterolemia Medical History hx of strokes Medical History hypertension Medical History melanoma Medical History Parkinsonism, unspecified Medical History GERD (gastroesophageal reflux di sease) Medical History CAD (coronary artery disease) Surgical History melanoma removal on arm Surgical History back Surgical History heart valve repair [facility] Other Hospital course Narrative No data available for this section [facility] Hospital Discharge instructions No data available for this section [facility] Progress note No data available for this section [facility] Reason for referral (narrative)* Outpatient Procedure (Routine) - Authorized Specialty Diagnoses / Procedures Referred By Asuncion rucker Referred To Contact [facility] Diagnoses Nonrheumatic aortic valve stenosis Procedures ECHO ECHO TTHRC R-T 2D W/WOM-MODE COMPL SPEC&COLR D Savanna Zhang MD [address] [facility] [address] [place] [address] [facility] [place] [address] Referral ID Status Reason Start Date Expiration Date Visits Requested Visits Authorized [id number] Authorized Auto-Generat ed Referral 10/01/2022 04/02/2023 1 1 [facility] [place] for referral (narrative)* Outpatient Procedure (Routine) - Pending Review Specialty Diagnoses / Procedures Referred By Asuncion rucker Referred To Contact [facility] Diagnoses Mitral regurgitation and aortic stenosis Procedures ECHO TRANSESOPHAGEAL ECHO TRANSESOPHAG R-T 2D W/PRB IMG ACQUISJ Deng&R Savanna Zhang MD [address] [facility] [address] [place] [address] [facility] [address] [place] [address] Referral ID Status Reason Start Date Expiration Date Visits Requested Visits Authorized [id number] Pending Review Auto-Generat ed Referral 10/05/2022 10/05/2023 1 1 * Outpatient Procedure (Routine) - Pending Review Specialty Diagnoses / Procedures Referred By Contac t Referred To Contact [facility] Diagnoses Mitral regurgitation and aortic stenosis Procedures ECG COMPLETE ECG ROUTINE ECG W/LEAST 12 LDS W/I&R Savanna Zhang MD [address] [facility] [address] [place] [address] [facility] [address] [place] [id number] Referral ID Status Reason Start Date Expiration Date Visits Requested Visits Authorized [id number] Pending Review Auto-Generat ed Referral 10/05/2022 10/05/2023 1 1 [facility] [place] for referral (narrative)* Outpatient Procedure (Routine) - Closed Specialty Diagnoses / Procedures Referred By Contac t Referred To Contact [facility] Diagnoses Paroxysmal atrial fibrillation (HCC) Procedures ECG COMPLETE ECG ROUTINE ECG W/LEAST 12 LDS W/I&R Barbara Warner APRN.CNP, DNP [address] [facility] [address] [place] [address] [facility] [address] [place] [address] Referral ID Status Reason Start Date Expiration Date V isits Requested Visits Authorized [id number] Closed Auto-Generate d Referral 01/14/2023 01/14/2024 1 1 [facility] [place] for referral (narrative)* Diagnostic Procedure Only (Routine) - Closed Specialty Diagnoses / Procedures Referred By Asuncion t Referred To Contact XR IMAGING Diagnoses Pain Procedures XR FOOT GENERAL 3V AP/LAT/OBL LEFT RADEX FOOT COMPLETE MINIMUM 3 VIEWS Chaitanya Watkins DPM [address] [place] [address] [place] [address] Referral ID Status Reason Start Date Expiration Date V isits Requested Visits Authorized [id number] Closed Auto-Generate d Referral 05/10/2023 06/08/2024 1 1 [facility] for visit Narrative* Diagnostic Procedure Only (Routine) - Closed Specialty Diagnoses / Procedures Referred By Asuncion rucker Referred To Contact XR IMAGING Diagnoses Pain Procedures XR FOOT GENERAL 3V AP/LAT/OBL LEFT RADEX FOOT COMPLETE MINIMUM 3 VIEWS Chaitanya Watkins DPM [address] [place] [address] [place] [address] Referral ID Status Reason Start Date Expiration Date V isits Requested Visits Authorized [id number] Closed Auto-Generate d Referral 05/10/2023 06/08/2024 1 1 [facility] Summary Purpose Family History No Family History Records Found Relationship Condition Age at Onset Recorded Date/T sarah brother Unknown father Malignant neoplasm Unknown Unknown Not Specified Unknown sister Unknown Advance Directives No Advanced Directives Records FoundDocuments on File Type Date Recorded Patient Baby Attendant Expl anation Advance Directive(s) 06/25/2020 10:37 AM Advance Directive(s) 06/20/2020 2:42 PM Advance Directive Response Recorded Date/ Time Advance Directives No February 2:28am Chief Complaint and Reason for Visit Chief Complaint R25.1 R26.9 Chief Complaint clogged ears Reason for Referral Specialty Diagnoses / Procedures Referred By Asuncion rucker Referred To Contact CT IMAGING Diagnoses Encounter for preprocedural cardiovascular examination Pre-operative cardiovascular examination Aortic valve disorder Paroxysmal atrial fibrillation (HCC) Mitral valve disorder Procedures CTA CHEST (GATED) W IVCON CT ANGIOGRAPHY CHEST W/CONTRAST/NONCONTRAST Brain Nieves MD [address] [place] [address] Ct Imaging Referral ID Status Reason Start Date Expiration Date V isits Requested Visits Authorized [id number] Closed Auto-Generate d Referral 11/16/2022 12/16/2023 1 1 Specialty Diagnoses / Procedures Referred By Contac t Referred To Contact Cardiothoracic Surgery Diagnoses Mitral regurgitation and aortic stenosis Procedures CONSULT TO CARDIOTHORACIC SURGERY Savanna Zhang MD [address] [place] [address] Brain Nieves MD [address] [facility] [place] [address] Referral ID Status Reason Start Date Expiration Date Visits Requested Visits Authorized [id number] Ref Not Required PCP Requested Referral 11/10/2022 11/10/2023 1 1 Additional Source Comments (unrecognized sect ion and content) No Status Records FoundNo Status Records FoundNo Status Records FoundNo Status Records FoundNo Status Records FoundNo Status Records FoundNo Status Records FoundNo Status Records Found INFORMATION SOURCE (unrecogn ized section and content) DATE CREATED AUTHOR 08/03/2019 [facility] DATE CREATED AUTHOR AUTHOR'S ORGANIZ ATION 01/03/2022 [facility] DATE CREATED AUTHOR AUTHOR'S ORGANIZ ATION 01/07/2022 [facility] DATE CREATED AUTHOR AUTHOR'S ORGANIZ ATION 12/03/2023 [facility] DATE CREATED AUTHOR AUTHOR'S ORGANIZ ATION 12/08/2023 [facility] DATE CREATED AUTHOR AUTHOR'S ORGANIZ ATION 02/26/2024 [facility] DATE CREATED AUTHOR AUTHOR'S ORGANIZ ATION 05/12/2024 [facility] DATE CREATED AUTHOR AUTHOR'S ORGANIZ ATION 06/25/2024 [facility] EPIC Source Comments (unrecognize d section and content) In the event this informatio n is protected by the Federal Confidentiality of Alcohol and Drug Abuse Patient Records regulations: The Federal rules restrict any use of the information to criminally investigate or prosecute any alcohol or drug abuse patient.[facility] the event this information is protected by the Federal Confidentiality of Alcohol and Drug Abuse Patient Records regulations: The Federal rules restrict any use of the information to criminally investigate or prosecute any alcohol or drug abuse patient.[facility] the event this information is protected by the Federal Confidentiality of Alcohol and Drug Abuse Patient Records regulations: The Federal rules restrict any use of the information to criminally investigate or prosecute any alcohol or drug abuse patient.[facility] the event this information is protected by the Federal Confidentiality of Alcohol and Drug Abuse Patient Records regulations: The Federal rules restrict any use of the information to criminally investigate or prosecute any alcohol or drug abuse patient.[facility] the event this information is protected by the Federal Confidentiality of Alcohol and Drug Abuse Patient Records regulations: The Federal rules restrict any use of the information to criminally investigate or prosecute any alcohol or drug abuse patient.[facility] the event this information is protected by the Federal Confidentiality of Alcohol and Drug Abuse Patient Records regulations: The Federal rules restrict any use of the information to criminally investigate or prosecute any alcohol or drug abuse patient.[facility] the event this information is protected by the Federal Confidentiality of Alcohol and Drug Abuse Patient Records regulations: The Federal rules restrict any use of the information to criminally investigate or prosecute any alcohol or drug abuse patient.[facility] the event this information is protected by the Federal Confidentiality of Alcohol and Drug Abuse Patient Records regulations: The Federal rules restrict any use of the information to criminally investigate or prosecute any alcohol or drug abuse patient.[facility] the event this information is protected by the Federal Confidentiality of Alcohol and Drug Abuse Patient Records regulations: The Federal rules restrict any use of the information to criminally investigate or prosecute any alcohol or drug abuse patient.[facility] the event this information is protected by the Federal Confidentiality of Alcohol and Drug Abuse Patient Records regulations: The Federal rules restrict any use of the information to criminally investigate or prosecute any alcohol or drug abuse patient.[facility] the event this information is protected by the Federal Confidentiality of Alcohol and Drug Abuse Patient Records regulations: The Federal rules restrict any use of the information to criminally investigate or prosecute any alcohol or drug abuse patient.[facility] the event this information is protected by the Federal Confidentiality of Alcohol and Drug Abuse Patient Records regulations: The Federal rules restrict any use of the information to criminally investigate or prosecute any alcohol or drug abuse patient.[facility] the event this information is protected by the Federal Confidentiality of Alcohol and Drug Abuse Patient Records regulations: The Federal rules restrict any use of the information to criminally investigate or prosecute any alcohol or drug abuse patient.[facility] the event this information is protected by the Federal Confidentiality of Alcohol and Drug Abuse Patient Records regulations: The Federal rules restrict any use of the information to criminally investigate or prosecute any alcohol or drug abuse patient.[facility] the event this information is protected by the Federal Confidentiality of Alcohol and Drug Abuse Patient Records regulations: The Federal rules restrict any use of the information to criminally investigate or prosecute any alcohol or drug abuse patient.[facility] the event this information is protected by the Federal Confidentiality of Alcohol and Drug Abuse Patient Records regulations: The Federal rules restrict any use of the information to criminally investigate or prosecute any alcohol or drug abuse patient.[facility] the event this information is protected by the Federal Confidentiality of Alcohol and Drug Abuse Patient Records regulations: The Federal rules restrict any use of the information to criminally investigate or prosecute any alcohol or drug abuse patient.[facility] the event this information is protected by the Federal Confidentiality of Alcohol and Drug Abuse Patient Records regulations: The Federal rules restrict any use of the information to criminally investigate or prosecute any alcohol or drug abuse patient.[facility] Columbus[facility] the event this information is protected by the Federal Confidentiality of Alcohol and Drug Abuse Patient Records regulations: The Federal rules restrict any use of the information to criminally investigate or prosecute any alcohol or drug abuse patient.[facility] Columbus[facility] the event this information is protected by the Federal Confidentiality of Alcohol and Drug Abuse Patient Records regulations: The Federal rules restrict any use of the information to criminally investigate or prosecute any alcohol or drug abuse patient.[facility] Columbus[facility] the event this information is protected by the Federal Confidentiality of Alcohol and Drug Abuse Patient Records regulations: The Federal rules restrict any use of the information to criminally investigate or prosecute any alcohol or drug abuse patient.[facility] Columbus[facility] the event this information is protected by the Federal Confidentiality of Alcohol and Drug Abuse Patient Records regulations: The Federal rules restrict any use of the information to criminally investigate or prosecute any alcohol or drug abuse patient.[facility] Columbus[facility] the event this information is protected by the Federal Confidentiality of Alcohol and Drug Abuse Patient Records regulations: The Federal rules restrict any use of the information to criminally investigate or prosecute any alcohol or drug abuse patient.[facility] Columbus[facility] the event this information is protected by the Federal Confidentiality of Alcohol and Drug Abuse Patient Records regulations: The Federal rules restrict any use of the information to criminally investigate or prosecute any alcohol or drug abuse patient.[facility] Columbus[facility] the event this information is protected by the Federal Confidentiality of Alcohol and Drug Abuse Patient Records regulations: The Federal rules restrict any use of the information to criminally investigate or prosecute any alcohol or drug abuse patient.[facility] Columbus[facility] the event this information is protected by the Federal Confidentiality of Alcohol and Drug Abuse Patient Records regulations: The Federal rules restrict any use of the information to criminally investigate or prosecute any alcohol or drug abuse patient.[facility] ColumbusIn the event this information is protected by the Federal Confidentiality of Alcohol and Drug Abuse Patient Records regulations: The Federal rules restrict any use of the information to criminally investigate or prosecute any alcohol or drug abuse patient.[facility] ColumbusIn the event this information is protected by the Federal Confidentiality of Alcohol and Drug Abuse Patient Records regulations: The Federal rules restrict any use of the information to criminally investigate or prosecute any alcohol or drug abuse patient.[facility] ColumbusIn the event this information is protected by the Federal Confidentiality of Alcohol and Drug Abuse Patient Records regulations: The Federal rules restrict any use of the information to criminally investigate or prosecute any alcohol or drug abuse patient.[facility] Columbus[facility] the event this information is protected by the Federal Confidentiality of Alcohol and Drug Abuse Patient Records regulations: The Federal rules restrict any use of the information to criminally investigate or prosecute any alcohol or drug abuse patient.[facility] the event this information is protected by the Federal Confidentiality of Alcohol and Drug Abuse Patient Records regulations: The Federal rules restrict any use of the information to criminally investigate or prosecute any alcohol or drug abuse patient.[facility] the event this information is protected by the Federal Confidentiality of Alcohol and Drug Abuse Patient Records regulations: The Federal rules restrict any use of the information to criminally investigate or prosecute any alcohol or drug abuse patient.[facility] the event this information is protected by the Federal Confidentiality of Alcohol and Drug Abuse Patient Records regulations: The Federal rules restrict any use of the information to criminally investigate or prosecute any alcohol or drug abuse patient.[facility] Columbus[facility] the event this information is protected by the Federal Confidentiality of Alcohol and Drug Abuse Patient Records regulations: The Federal rules restrict any use of the information to criminally investigate or prosecute any alcohol or drug abuse patient.[facility] ColumbusIn the event this information is protected by the Federal Confidentiality of Alcohol and Drug Abuse Patient Records regulations: The Federal rules restrict any use of the information to criminally investigate or prosecute any alcohol or drug abuse patient.[facility] the event this information is protected by the Federal Confidentiality of Alcohol and Drug Abuse Patient Records regulations: The Federal rules restrict any use of the information to criminally investigate or prosecute any alcohol or drug abuse patient.[facility] ColumbusIn the event this information is protected by the Federal Confidentiality of Alcohol and Drug Abuse Patient Records regulations: The Federal rules restrict any use of the information to criminally investigate or prosecute any alcohol or drug abuse patient.[facility] ColumbusIn the event this information is protected by the Federal Confidentiality of Alcohol and Drug Abuse Patient Records regulations: The Federal rules restrict any use of the information to criminally investigate or prosecute any alcohol or drug abuse patient.[facility] the event this information is protected by the Federal Confidentiality of Alcohol and Drug Abuse Patient Records regulations: The Federal rules restrict any use of the information to criminally investigate or prosecute any alcohol or drug abuse patient.[facility] the event this information is protected by the Federal Confidentiality of Alcohol and Drug Abuse Patient Records regulations: The Federal rules restrict any use of the information to criminally investigate or prosecute any alcohol or drug abuse patient.[facility] the event this information is protected by the Federal Confidentiality of Alcohol and Drug Abuse Patient Records regulations: The Federal rules restrict any use of the information to criminally investigate or prosecute any alcohol or drug abuse patient.[facility] the event this information is protected by the Federal Confidentiality of Alcohol and Drug Abuse Patient Records regulations: The Federal rules restrict any use of the information to criminally investigate or prosecute any alcohol or drug abuse patient.[facility] Reason for Visit (unrecogniz ed section and content) Reason Comments Refill Request Reason Comments Results Reason Comments Consult Dr. 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 Reason Comments Education Of Patient/family Specialty Diagnoses / Procedures Referred By Contac t Referred To Contact CT IMAGING Diagnoses Encounter for preprocedural cardiovascular examination Pre-operative cardiovascular examination Aortic valve disorder Paroxysmal atrial fibrillation (HCC) Mitral valve disorder Procedures CTA CHEST (GATED) W IVCON CT ANGIOGRAPHY CHEST W/CONTRAST/NONCONTRAST Brain Nieves MD [id number] Imaging Referral ID Status Reason Start Date Expiration Date V isits Requested Visits Authorized [id number] Closed Auto-Generate d Referral 11/16/2022 12/16/2023 1 [...] ECG W/LEAST 12 LDS W/I&R Barbara Warner APRN.DE ALCHOLIZER, DNP [address] [facility] [address] [id number] [facility] [place] [address] [place] [address] Referral ID Status Reason Start Date Expiration Date V isits Requested Visits Authorized [id number] Closed Auto-Generate d Referral 01/14/2023 01/14/2024 1 [...] Request 03/09/2024 Reason Comments Suspicious Skin Lesion Reason Comments Skin Check Care Teams (unrecognized sec tion and content) Team Status: Active Member Role Status Dates Raul Dumont DO Primary Care Provider Active Team Status: Inactive Member Role Status Dates Raul Dumont DO Primary Care Provider Active Start: November 04, 2023 End: November 04, 2023 Amy Adams APRN Attending Provider Active Start: November 04, 2023 End: November 04, 2023 Database Designer Relationship Specialty Start Date End Date Raul Dumont DO PCP - General 01/22/10 Floyd Spaulding MD [address] [address] Primary Staff Physician Cardiology 08/23/18 Team Status: Inactive Member Role Status Dates Raul Dumont DO Primary Care Provider Active Raghav Hubbard MD Attending Provider Active Database Designer Relationship Specialty Start Date End Date Raul Dumont DO PCP - General 01/22/10 Floyd Spaulding MD [address] [address] Primary Staff Physician Cardiology 08/23/18 Database Designer Relationship Specialty Start Date End Date Raul Dumont DO PCP - General 01/22/10 Floyd Spaulding MD [address] [address] Primary Staff Physician Cardiology 08/23/18 Database Designer Relationship Specialty Start Date End Date Raul Dumont DO PCP - General 01/22/10 Floyd Spaulding MD [address] [address] Primary Staff Physician Cardiology 08/23/18 Database Designer Relationship Specialty Start Date End Date Raul Dumont DO PCP - General 01/22/10 Floyd Spaulding MD [address] [address] Primary Staff Physician Cardiology 08/23/18 Database Designer Relationship Specialty Start Date End Date Julia, Raul S, DO PCP - General 01/22/10 Floyd Spaulding MD [address] [place] [address] Primary Staff Physician Cardiology 08/23/18 Savanna Zhang MD [address] [address] Primary Staff Physician Cardiology 10/05/22 Database Designer Relationship Specialty Start Date End Date Raul Dumont, DO PCP - General 01/22/10 Floyd Spaulding MD [address] [address] Primary Staff Physician Cardiology 08/23/18 Savanna Zhang MD [address] [address] Primary Staff Physician Cardiology 10/05/22 Database Designer Relationship Specialty Start Date End Date Raul Dumont, DO PCP - General 01/22/10 Floyd Spaulding MD [address] [address] Primary Staff Physician Cardiology 08/23/18 Savanna Zhang MD [address] [address] Primary Staff Physician Cardiology 10/05/22 Database Designer Relationship Specialty Start Date End Date Raul Dumont, DO PCP - General 01/22/10 Floyd Spaulding MD [address] [address] Primary Staff Physician Cardiology 08/23/18 Savanna Zhang MD [address] [place] [address] Primary Staff Physician Cardiology 10/05/22 Database Designer Relationship Specialty Start Date End Date Raul Dumont DO PCP - General 01/22/10 Floyd Spaulding MD [address] [place] [address] Primary Staff Physician Cardiology 08/23/18 Savanna Zhang MD [address] [place] [address] Primary Staff Physician Cardiology 10/05/22 Database Designer Relationship Specialty Start Date End Date Raul Dumont DO PCP - General 01/22/10 Floyd Spaulding MD [address] [place] [address] Primary Staff Physician Cardiology 08/23/18 Savanna Zhang MD [address] [address] Primary Staff Physician Cardiology 10/05/22 Brain Nieves MD [address] [place], [place] [id number] Surgeon Cardiac Surg 11/10/22 Database Designer Relationship Specialty Start Date End Date Raul Dumont, DO PCP - General 01/22/10 Floyd Spaulding MD [address] [place] [address] Primary Staff Physician Cardiology 08/23/18 Savanna Zhang MD [address] [place] [address] Primary Staff Physician Cardiology 10/05/22 Brain Nieves MD [address] [place] [address] Surgeon Cardiac Surg 11/10/22 Database Designer Relationship Specialty Start Date End Date Navin Dumontory DO Jojo PCP - General 01/22/10 Floyd Spaulding MD [address] [facility] [address] [place] [address] Primary Staff Physician Cardiology 08/23/18 Savanna Zhang MD [address] [facility] [address] [place] [address] Primary Staff Physician Cardiology 10/05/22 Brain Nieves MD [address] [place] [address] Surgeon Cardiac Surg 11/10/22 Hay Jovel DO [address] [place] [address] Cardiology 11/17/22 Database Designer Relationship Specialty Start Date End Date Julia Raul DO Jojo PCP - General 01/22/10 Floyd Spaulding MD [address] [address] Primary Staff Physician Cardiology 08/23/18 Savanna Zhang MD [address] [facility] [address] [place] [address] Primary Staff Physician Cardiology 10/05/22 Brain Nieves MD [address] [place] [address] Surgeon Cardiac Surg 11/10/22 Hay Jovel DO [address] [place] [address] Cardiology 11/17/22 Database Designer Relationship Specialty Start Date End Date Raul Dumont DO PCP - General 01/22/10 Floyd Spaulding MD [address] [address] Primary Staff Physician Cardiology 08/23/18 Savanna Zhang MD [address] [address] Primary Staff Physician Cardiology 10/05/22 Brain Nieves MD [address] [place] [address] Surgeon Cardiac Surg 11/10/22 Hay Jovel DO [address] [place] [address] Cardiology 11/17/22 Database Designer Relationship Specialty Start Date End Date Raul Dumont DO PCP - General 01/22/10 Floyd Spaulding MD [address] [address] Primary Staff Physician Cardiology 08/23/18 Savanna Zhang MD [address] [address] Primary Staff Physician Cardiology 10/05/22 Brain Nieves MD [address] [place] [address] Surgeon Cardiac Surg 11/10/22 Hay Jovel DO [address] [place] [address] Cardiology 11/17/22 Database Designer Relationship Specialty Start Date End Date Raul Dumont DO PCP - General 01/22/10 Floyd Spaulding MD [address] [facility] [address] [place] [address] Primary Staff Physician Cardiology 08/23/18 Savanna Zhang MD [address] [facility] [address] [place] [address] Primary Staff Physician Cardiology 10/05/22 Brain Nieves MD [address] [place] [address] Surgeon Cardiac Surg 11/10/22 Hay Jovel DO [address] [place] [address] Cardiology 11/17/22 Database Designer Relationship Specialty Start Date End Date Raul Dumont DO PCP - General 01/22/10 Floyd Spaulding MD [address] [address] Primary Staff Physician Cardiology 08/23/18 Savanna Zhang MD [address]01 [facility] [address] [place] [address] Primary Staff Physician Cardiology 10/05/22 Brain Nieves MD [address] [place] [address] Surgeon Cardiac Surg 11/10/22 Hay Jovel DO [address] [place] [address] Cardiology 11/17/22 Database Designer Relationship Specialty Start Date End Date Raul Dumont DO PCP - General 01/22/10 Floyd Spaulding MD [address] [address] Primary Staff Physician Cardiology 08/23/18 Savanna Zhang MD [address] [address] Primary Staff Physician Cardiology 10/05/22 Brain Nieves MD [address] [place] [address] Surgeon Cardiac Surg 11/10/22 Hay Jovel DO [address] [place] [address] Cardiology 11/17/22 Database Designer Relationship Specialty Start Date End Date Raul Dumont DO PCP - General 01/22/10 Floyd Spaulding MD [address] [address] Primary Staff Physician Cardiology 08/23/18 Savanna Zhang MD [facility] [address] [address] Primary Staff Physician Cardiology 10/05/22 Brain Nieves MD [address] [place] [address] Surgeon Cardiac Surg 11/10/22 Hay Jovel DO [address] [place] [address] Cardiology 11/17/22 Database Designer Relationship Specialty Start Date End Date Raul Dumont DO PCP - General 01/22/10 Floyd Spaulding MD [address] [place] [address] Primary Staff Physician Cardiology 08/23/18 Savanna Zhang MD [address] [place] [address] Primary Staff Physician Cardiology 10/05/22 Brain Nieves MD [address] [place] [address] Surgeon Cardiac Surg 11/10/22 Hay Jovel DO [address] [place] [address] Cardiology 11/17/22 Database Designer Relationship Specialty Start Date End Date Raul Dumont DO PCP - General 01/22/10 Floyd Spaulding MD [address] [facility] [address] [place] [address] Primary Staff Physician Cardiology 08/23/18 Savanna Zhang MD [address] [facility] [address] [place] [address] Primary Staff Physician Cardiology 10/05/22 Brain Nieves MD [address] [place] [address] Surgeon Cardiac Surg 11/10/22 Hay Jovel DO [address] [place] [address] Cardiology 11/17/22 Database Designer Relationship Specialty Start Date End Date Raul Dumont DO PCP - General 01/22/10 Floyd Spaulding MD [address] [address] Primary Staff Physician Cardiology 08/23/18 Savanna Zhang MD [facility] [address] [address] Primary Staff Physician Cardiology 10/05/22 Brain Nieves MD [address] [place] [address] Surgeon Cardiac Surg 11/10/22 Hay Jovel DO [address] [place] [address] Cardiology 11/17/22 Database Designer Relationship Specialty Start Date End Date Julia Raul Uribe, DO PCP - General 01/22/10 Floyd Spaulding MD [address] [address] Primary Staff Physician Cardiology 08/23/18 Savanna Zhang MD [address] [address] Primary Staff Physician Cardiology 10/05/22 Brain Nieves MD [address] [place] [address] Surgeon Cardiac Surg 11/10/22 Hay Jovel DO [address] [place] [address] Cardiology 11/17/22 Database Designer Relationship Specialty Start Date End Date Navin Dumontsam UribeDO PCP - General 01/22/10 Floyd Spaulding MD [address] [facility] [address] [place] [address] Primary Staff Physician Cardiology 08/23/18 Savanna Zhang MD [address] [facility] [address] [place] [address] Primary Staff Physician Cardiology 10/05/22 Brain Nieves MD [address] [place] [address] Surgeon Cardiac Surg 11/10/22 Hay Jovel DO [address] [place] [address] Cardiology 11/17/22 Database Designer Relationship Specialty Start Date End Date Raul Dumont DO PCP - General 01/22/10 Floyd Spaulding MD [address] [address] Primary Staff Physician Cardiology 08/23/18 Savanna Zhang MD [address] [facility] [address] [place] [address] Primary Staff Physician Cardiology 10/05/22 Brain Nieves MD [address] [place] [address] Surgeon Cardiac Surg 11/10/22 Hay Jovel DO [address] [place] [address] Cardiology 11/17/22 Database Designer Relationship Specialty Start Date End Date Raul Dumont DO PCP - General 01/22/10 Floyd Spaulding MD [address] [place] [address] Primary Staff Physician Cardiology 08/23/18 Savanna Zhang MD [address]01 [facility] [address] [place] [address] Primary Staff Physician Cardiology 10/05/22 Brain Nieves MD [address] [place] [address] Surgeon Cardiac Surg 11/10/22 Hay Jovel DO [address] [place] [address] Cardiology 11/17/22 Database Designer Relationship Specialty Start Date End Date Raul Dumont DO PCP - General 01/22/10 Floyd Spaulding MD [address] [place] [address] Primary Staff Physician Cardiology 08/23/18 Savanna Zhang MD [address] [place] [address] Primary Staff Physician Cardiology 10/05/22 Brain Nieves MD [address] [place] [address] Surgeon Cardiac Surg 11/10/22 Hay Jovel DO [address] [place] [address] Cardiology 11/17/22 Database Designer Relationship Specialty Start Date End Date Raul Dumont DO PCP - General 01/22/10 Floyd Spaulding MD [address] [facility], [address] [place] [address] Primary Staff Physician Cardiology 08/23/18 Savanna Zhang MD [address] [facility], [address], [address] [place] [address] Primary Staff Physician Cardiology 10/05/22 Brain Nieves MD [address] [place] [address] Surgeon Cardiac Surg 11/10/22 Hay Jovel DO [address] [place] [address] Cardiology 11/17/22 Database Designer Relationship Specialty Start Date End Date Raul Dumont DO PCP - General 01/22/10 Floyd Spaulding MD [address] [facility], [address], [address] [place] [address] Primary Staff Physician Cardiology 08/23/18 Savanna Zhang MD [address] [facility], [facility], [address] [place] [address] Primary Staff Physician Cardiology 10/05/22 Brain Nieves MD [address] [facility] [place] [address] Surgeon Cardiac Surg 11/10/22 Hay Jovel DO [address] [place] [address] Cardiology 11/17/22 Database Designer Relationship Specialty Start Date End Date Raul Dumont DO PCP - General 01/22/10 Floyd Spaulding MD [address] [facility], [facility], [address] [place] [address] Primary Staff Physician Cardiology 08/23/18 Savanna Zhang MD [address] [facility], [address] [place] [address] Primary Staff Physician Cardiology 10/05/22 Brain Nieves MD [address] [place] [address] Surgeon Cardiac Surg 11/10/22 Hay Jovel DO [address] [place] [address] Cardiology 11/17/22 Database Designer Relationship Specialty Start Date End Date Raul Dumont DO PCP - General 01/22/10 Floyd Spaulding MD [address] [facility], [facility], [address] [place] [address] Primary Staff Physician Cardiology 08/23/18 Savanna Zhang MD [address] [facility], [facility], [address] [place] [address] Primary Staff Physician Cardiology 10/05/22 Brain Nieves MD [address] [place] [address] Surgeon Cardiac Surg 11/10/22 Hay Jovel DO [address] [place] [address] Cardiology 11/17/22 Database Designer Relationship Specialty Start Date End Date Raul Dumont DO PCP - General 01/22/10 Floyd Spaulding MD [address] [facility], [facility], [address] [place] [address] Primary Staff Physician Cardiology 08/23/18 Savanna Zhang MD [address] [facility], [facility], [address] [place] [address] Primary Staff Physician Cardiology 10/05/22 Brain Nieves MD [address] [place] [address] Surgeon Cardiac Surg 11/10/22 Hay Jovel DO [address] [place] [address] Cardiology 11/17/22 Database Designer Relationship Specialty Start Date End Date Raul Dumont DO PCP - General 01/22/10 Floyd Spaulding MD [address] [facility], [address], [address] [place] [address] Primary Staff Physician Cardiology 08/23/18 Savanna Zhang MD [address] [facility], [address], [address] [place] [address] Primary Staff Physician Cardiology 10/05/22 Brain Nieves MD [address] [place] [address] Surgeon Cardiac Surg 11/10/22 Hay Jovel DO [address] [place] [address] Cardiology 11/17/22 Database Designer Relationship Specialty Start Date End Date Raul Dumont DO PCP - General 01/22/10 Floyd Spaulding MD [address] [facility], [address], [address] [place] [address] Primary Staff Physician Cardiology 08/23/18 Savanna Zhang MD [address] [facility], [address], [address] [place] [address] Primary Staff Physician Cardiology 10/05/22 Brain Nieves MD [address] [place] [address] Surgeon Cardiac Surg 11/10/22 Hay Jovel DO [address] [place] [address] Cardiology 11/17/22 Database Designer Relationship Specialty Start Date End Date Raul Dumont MD [address] [place] [address] PCP - General Manufacturing Group Leader 03/18/23 Database Designer Relationship Specialty Start Date End Date Raul Dumont MD [address] [place] [address] PCP - General Manufacturing Group Leader 03/18/23 Database Designer Relationship Specialty Start Date End Date Raul Dumont MD [address] [place] [address] PCP - General Manufacturing Group Leader 03/18/23 Database Designer Relationship Specialty Start Date End Date Raul Dumont MD [address] [place] [address] PCP - General Manufacturing Group Leader 03/18/23 Goals (unrecognized section and content) Goals [...] BE BASED ON THE PRIMARY CLINICAL RECORDS. [facility]. provides no warranty or guarantee of the accuracy or completeness of information in this document.
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
--- NOTE | 2024-07-05 18:31 | CT_ITS ---
[address] [address] Patient Name: VERONICA CORONEL MRN: [id number] date: 1940 Sex: M Assigned Patient Location: ER Current Patient Location: .[facility] Accession/Order Number: [id number] Exam Date: 07/05/2024 18:20 Report Date: 07/05/2024 20:23 At the request of: VANI GARCIA Procedure: CT cervical spine wo con EXAMINATION: CT head/brain wo con, CT facial bones wo con, CT cervical spine wo con HISTORY: trauma Left eye swelling, large hematoma left side of the face. Fall 2 hours ago. COMPARISON: None. TECHNIQUE: Axial CT images through the head, face, cervical spine without intravenous contrast. Dose reduction techniques were achieved by using: automated exposure control and/or adjustment of mA and /or kV according to patient size and/or use of iterative reconstruction technique. FINDINGS: HEAD CT: There is mild prominence of the ventricles and sulci. There is no evidence for acute intracranial hemorrhage. There is mild hypoattenuation in the supratentorial white matter, most compatible with chronic microvascular ischemia. There is no mass effect or midline shift. There are no abnormal extraaxial fluid collections. Left prefrontal and preorbital soft tissue hematoma. Hematoma extends to the left medial canthus. CT FACIAL BONES: No acute fracture or dislocation in the facial bones. Orbital rims are intact. The globes are intact and the lenses are in place. Temporomandibular joints are intact. Large left prefrontal, preorbital soft tissue hematoma as well as hematoma around the nose. No intraorbital hematoma. CT CERVICAL SPINE: Straightening of the cervical spine. Vertebral bodies are anatomically aligned. Vertebral body heights are preserved. There is no evidence for acute fracture. There is no evidence for acute subluxation. Multilevel degenerative disc disease and facet arthropathy. There are varying degrees of disc height loss, osteophytes, and facet arthropathy. Prevertebral soft tissues normal in thickness. No high-grade spinal canal stenosis. A few levels of foraminal stenosis secondary to facet arthropathy and uncovertebral osteophytes. No airspace consolidation in the included lung apices. CT/CT cervical spine wo con IMPRESSION: 1. Negative for acute intracranial hemorrhage or acute intracranial process. 2. Negative for acute fracture or dislocation in the facial bones. 3. Large left prefrontal and preorbital soft tissue hematoma, and soft tissue hematoma around the nose. No intraorbital hematoma. 4. Negative for acute fracture or dislocation in the cervical spine. Electronically authenticated by: TOÑO DOSS Date: 07/05/2024 20:23
--- NOTE | 2024-07-05 18:31 | XR_ITS ---
The [address] [address] Patient Name: VERONICA CORONEL MRN: [id number] date: 1940 Sex: M Assigned Patient Location: ER Current Patient Location: ER Accession/Order Number: [id number] Exam Date: 07/05/2024 18:20 Report Date: 07/05/2024 20:08 At the request of: VANI GARCIA Procedure: XR knee LT 3V EXAM: XR knee LT 3V HISTORY: Post fall pain , on blood thinner COMPARISON: None. TECHNIQUE: 3 views Left knee FINDINGS: Bones: No acute fracture or aggressive appearing bony lesion. Joints: Normal alignment. No effusion. Soft tissues: Unremarkable. XR/XR knee LT 3V IMPRESSION: No evidence of fracture. Electronically authenticated by: SANTIAGO FREEMAN Date: 07/05/2024 20:08
--- NOTE | 2024-07-05 18:31 | CT_ITS ---
[address] [address] Patient Name: VERONICA CORONEL MRN: [id number] date: 1940 Sex: M Assigned Patient Location: ER Current Patient Location: .[facility] Accession/Order Number: [id number] Exam Date: 07/05/2024 18:20 Report Date: 07/05/2024 20:23 At the request of: VANI GARCIA Procedure: CT head/brain wo con EXAMINATION: CT head/brain wo con, CT facial bones wo con, CT cervical spine wo con HISTORY: trauma Left eye swelling, large hematoma left side of the face. Fall 2 hours ago. COMPARISON: None. TECHNIQUE: Axial CT images through the head, face, cervical spine without intravenous contrast. Dose reduction techniques were achieved by using: automated exposure control and/or adjustment of mA and /or kV according to patient size and/or use of iterative reconstruction technique. FINDINGS: HEAD CT: There is mild prominence of the ventricles and sulci. There is no evidence for acute intracranial hemorrhage. There is mild hypoattenuation in the supratentorial white matter, most compatible with chronic microvascular ischemia. There is no mass effect or midline shift. There are no abnormal extraaxial fluid collections. Left prefrontal and preorbital soft tissue hematoma. Hematoma extends to the left medial canthus. CT FACIAL BONES: No acute fracture or dislocation in the facial bones. Orbital rims are intact. The globes are intact and the lenses are in place. Temporomandibular joints are intact. Large left prefrontal, preorbital soft tissue hematoma as well as hematoma around the nose. No intraorbital hematoma. CT CERVICAL SPINE: Straightening of the cervical spine. Vertebral bodies are anatomically aligned. Vertebral body heights are preserved. There is no evidence for acute fracture. There is no evidence for acute subluxation. Multilevel degenerative disc disease and facet arthropathy. There are varying degrees of disc height loss, osteophytes, and facet arthropathy. Prevertebral soft tissues normal in thickness. No high-grade spinal canal stenosis. A few levels of foraminal stenosis secondary to facet arthropathy and uncovertebral osteophytes. No airspace consolidation in the included lung apices. CT/CT head/brain wo con IMPRESSION: 1. Negative for acute intracranial hemorrhage or acute intracranial process. 2. Negative for acute fracture or dislocation in the facial bones. 3. Large left prefrontal and preorbital soft tissue hematoma, and soft tissue hematoma around the nose. No intraorbital hematoma. 4. Negative for acute fracture or dislocation in the cervical spine. Electronically authenticated by: TOÑO DOSS Date: 07/05/2024 20:23
--- NOTE | 2024-07-05 18:31 | CT_ITS ---
[address] [address] Patient Name: VERONICA CORONEL MRN: [id number] date: 1940 Sex: M Assigned Patient Location: ER Current Patient Location: .[facility] Accession/Order Number: [id number] Exam Date: 07/05/2024 18:20 Report Date: 07/05/2024 20:23 At the request of: VANI GARCIA Procedure: CT facial bones wo con EXAMINATION: CT head/brain wo con, CT facial bones wo con, CT cervical spine wo con HISTORY: trauma Left eye swelling, large hematoma left side of the face. Fall 2 hours ago. COMPARISON: None. TECHNIQUE: Axial CT images through the head, face, cervical spine without intravenous contrast. Dose reduction techniques were achieved by using: automated exposure control and/or adjustment of mA and /or kV according to patient size and/or use of iterative reconstruction technique. FINDINGS: HEAD CT: There is mild prominence of the ventricles and sulci. There is no evidence for acute intracranial hemorrhage. There is mild hypoattenuation in the supratentorial white matter, most compatible with chronic microvascular ischemia. There is no mass effect or midline shift. There are no abnormal extraaxial fluid collections. Left prefrontal and preorbital soft tissue hematoma. Hematoma extends to the left medial canthus. CT FACIAL BONES: No acute fracture or dislocation in the facial bones. Orbital rims are intact. The globes are intact and the lenses are in place. Temporomandibular joints are intact. Large left prefrontal, preorbital soft tissue hematoma as well as hematoma around the nose. No intraorbital hematoma. CT CERVICAL SPINE: Straightening of the cervical spine. Vertebral bodies are anatomically aligned. Vertebral body heights are preserved. There is no evidence for acute fracture. There is no evidence for acute subluxation. Multilevel degenerative disc disease and facet arthropathy. There are varying degrees of disc height loss, osteophytes, and facet arthropathy. Prevertebral soft tissues normal in thickness. No high-grade spinal canal stenosis. A few levels of foraminal stenosis secondary to facet arthropathy and uncovertebral osteophytes. No airspace consolidation in the included lung apices. CT/CT facial bones wo con IMPRESSION: 1. Negative for acute intracranial hemorrhage or acute intracranial process. 2. Negative for acute fracture or dislocation in the facial bones. 3. Large left prefrontal and preorbital soft tissue hematoma, and soft tissue hematoma around the nose. No intraorbital hematoma. 4. Negative for acute fracture or dislocation in the cervical spine. Electronically authenticated by: TOÑO DOSS Date: 07/05/2024 20:23
[2024-07-05 18:59] VITALS: BP 157/79; PULSE 76; O2SAT 97
--- NOTE | 2024-07-05 20:18 | ED_ITS ---
HPI HPI - Fall General Chief Complaint: Fall Stated Complaint: FALL Time Seen by Provider: 07/05/24 17:46 Source: patient and family Mode of arrival: Wheelchair Limitations: no limitations History of Present Illness HPI Narrative: 83-year-old male presents to the emergency department and was initially seen by Dr. Portillo and signed out to me after discussing the case with her thoroughly. Pl ease see her full history and physical exam Related Data Home Medications ?Medication ?Instructions ?Recorded ?Confirmed carbidopa 10 mg-levodopa 100 mg 1 tab 02/04/24 tablet escitalopram oxalate 10 mg tablet 10 mg 02/04/24 finasteride 5 mg tablet 5 mg 02/04/24 losartan 25 mg tablet 25 mg 02/04/24 melatonin 5 mg capsule mg 02/04/24 metoprolol succinate 25 mg 25 mg PO 02/04/24 tablet,extended release 24 hr pantoprazole 40 mg tablet,delayed 40 mg PO 02/04/24 release rivaroxaban 20 mg tablet (Xarelto) 20 mg PO Q24H 02/04/24 07/05/24 gabapentin 300 mg capsule mg 07/05/24 Allergies Allergy/AdvReac Type Severity Reaction Status Date / Time Sulfa (Sulfonamide Allergy Unknown Unknown Verified 07/05/24 17:48 Antibiotics) Opioid HPI Opioid Management Most Recent Pain and Opioid Data: Last Pain Scale 3 07/05/24 17:54 07/05/24 PFSH PFSH Social History Little interest or pleasure in doing things: not at all Feeling down, depressed, or hopeless: not at all Exam Constitutional Vital Signs, click to edit/add: Last Vital Signs Temp 98.2 F 07/05/24 17:40 Pulse 76 07/05/24 18:59 Resp 18 07/05/24 18:59 BP 157/79 H 07/05/24 18:59 Pulse Ox 97 07/05/24 18:59 O2 Del Method Room Air 07/05/24 17:40 Course Vital Signs Vital signs: Vital Signs Temperature 98.2 F 07/05/24 17:40 Pulse Rate 82 07/05/24 17:40 Respiratory Rate 20 07/05/24 17:40 Blood Pressure 168/90 H 07/05/24 17:40 Pulse Oximetry 98 07/05/24 17:40 Oxygen Delivery Method Room Air 07/05/24 17:40 Temperature 98.2 F 07/05/24 17:40 Pulse Rate 76 07/05/24 18:59 Respiratory Rate 18 07/05/24 18:59 Blood Pressure 157/79 H 07/05/24 18:59 Pulse Oximetry 97 07/05/24 18:59 Oxygen Delivery Method Room Air 07/05/24 17:40 MDM - Fall MDM Narrative Medical decision making narrative: CT brain, CT C-spine, CT facial bones, and knee x-ray are all negative. Findings are discussed with the patient and his family and he is able to be discharged home. Differential Diagnosis Differential diagnosis: Likely other (Intracranial hemorrhage, facial contusion, hematoma, facial fracture, C-spine fracture) Imaging Data CT scan - head: Radiologist's impression: ITS Impressions Cervical Spine CT 07/05/24 18:31 IMPRESSION: 1. Negative for acute intracranial hemorrhage or acute intracranial process. 2. Negative for acute fracture or dislocation in the facial bones. 3. Large left prefrontal and preorbital soft tissue hematoma and soft tissue hematoma around the nose. No intraorbital hematoma. 4. Negative for acute fracture or dislocation in the cervical spine. Electronically authenticated by: TOÑO DOSS Date: 07/05/2024 20:[address] 07/05/24 18:31 IMPRESSION: 1. Negative for acute intracranial hemorrhage or acute intracranial process. 2. Negative for acute fracture or dislocation in the facial bones. 3. Large left prefrontal and preorbital soft tissue hematoma and soft tissue hematoma around the nose. No intraorbital hematoma. 4. Negative for acute fracture or dislocation in the cervical spine. Electronically authenticated by: TOÑO DOSS Date: 07/05/2024 20:[address] 07/05/24 18:31 IMPRESSION: 1. Negative for acute intracranial hemorrhage or acute intracranial process. 2. Negative for acute fracture or dislocation in the facial bones. 3. Large left prefrontal and preorbital soft tissue hematoma and soft tissue hematoma around the nose. No intraorbital hematoma. 4. Negative for acute fracture or dislocation in the cervical spine. Electronically authenticated by: TOÑO DOSS Date: 07/05/2024 20:09 Knee X-Ray 07/05/24 18:31 IMPRESSION: No evidence of fracture. Electronically authenticated by: SANTIAGO FREEMAN Date: 07/05/2024 20:08 Discharge Plan Discharge Chief Complaint: Fall Clinical Impression: Facial contusion, Fall Patient Disposition: Home, Self-Care Time of Disposition Decision: 20:18 Condition: Good Mode of Transportation: Private Vehicle Prescriptions / Home Meds: No Action gabapentin 300 mg capsule carbidopa-levodopa 10-100 mg tablet 1 tab metoprolol succinate 25 mg tablet extended release 24 hr 25 mg PO melatonin 5 mg capsule pantoprazole 40 mg tablet,delayed release (DR/EC) 40 mg PO losartan 25 mg tablet 25 mg finasteride 5 mg tablet 5 mg escitalopram oxalate 10 mg tablet 10 mg Xarelto 20 mg tablet 20 mg PO Q24H Print Language: Brazilian Instructions: Hematoma (ED), Facial Contusion (ED) Referrals: RAUL DUMONT [Primary Care Provider] - 1 week
== END 2024-07-05 20:29 | disposition home or self-care (01) ==
PROVIDERS: Emergency Provider Emergency Medicine; PCP Family Medicine
DX: S00.83XA Contusion of other part of head, initial encounter (principal); W01.0XXA Fall on same level from slipping, tripping and stumbling without subsequent striking against object, initial encounter; G20.A1 Parkinson's disease without dyskinesia, without mention of fluctuations; Z79.01 Long term (current) use of anticoagulants; I48.91 Unspecified atrial fibrillation; S00.31XA Abrasion of nose, initial encounter; S00.33XA Contusion of nose, initial encounter; M25.562 Pain in left knee
CPT/HCPCS: 70450; 70486; 72125; 73562; 99284

== ENCOUNTER 2024-07-09 17:50 | Emergency (ER) | payer MEDICARE, BC, SELFPAY ==
[2024-07-09 17:57] VITALS: BP 128/80; PULSE 92; TEMP 36.7; O2SAT 94; BMI 29.9
--- OUTSIDE RECORDS SUMMARY | 2024-07-09 18:00 | XMS_ITS | CCD ---
Author Organization [facility] Care Team Providers Care Surgical Instruments Inspector Name Role Phone Raul Dumont DO Primary [...] Jovel DO Unavailable Floyd Spaulding MD Unavailable [phone] Savanna Zhang MD Unavailable Brain Nieves MD [...] Unavailable Raul Dumont MD Primary Care Provider DELBERT HAWKINS Attending Unavailab RAUL Cam Referring Unavailable PARADISE TYLER Attending Unavailable REBEKAH MARQUEZ Attending Unavailable PARADISE TYLER Attending Unavailable Allergies Allergy Classification Reported Allergen(s) Allergy Type Date of Onset Reaction(s) Facility (20 sources) Grass pollen; Translations: [GRASS POLLEN] Drug Allergy 7 Unknown [facility] (20 sources) Mometasone; Translations: [MOMETASONE] Drug Allergy 4 Other: See Comments [facility] Work Phone: (20 sources) predniSONE; Translations: [prednisone] Drug Allergy 3 Mental Status Change [facility] (20 sources) Sulfonamides (Antibiotic); Translations: [SULFA (SULFONAMIDE ANTIBIOTICS)] Drug Allergy 6 Unknown [facility] Work Phone: (1 source) Sulfonamides (Antibiotic) Drug allergy (disorder) 7 [facility] (7 sources) Sulfamethoxazole; Translations: [sulfamethoxazole ] Drug Allergy 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 12/16/2022 Active Start: 12-16-2022 take 1 capsule by [facility] every twelve hours as needed docusate sodium (COLACE) 100 mg capsule Take 1 capsule by mouth twice daily as needed for constipation. 12/16/2022 Active Comment on above: Take 1 capsule by mo [facility] twice daily as needed for constipation. docusate sodium 50 mg / sennosides, jail 8.6 mg oral tablet (12 sources) Start: [...] Daily, # 30 tab(s), Refills(s) 3, Pharmacy: [facility] #[id number], 178, cm, 03/12/20 10:12:00 EDT, [...] Daily, # 90 tab(s), Refills(s) 1, Pharmacy: [facility]/pharmacy #[id number], 178, cm, 10/21/22 10:47:00 EDT, [...] bedtime), # 90 tab(s), Refills(s) 1, Pharmacy: [facility]/pharmacy #[id number], 178, cm, 10/21/22 10:47:00 EDT, [...] hydrochloride 5 mg oral tablet (1 source) A-blxcwv-W-aspartate Receptor Antagonist Start: 11-04-2023 take 5 mg [...] once daily. Take 2 tablets by mo [facility] once daily. MULTIVITAMIN ORAL (20 sources) [...] Daily, # 90 tab(s), Refills(s) 3, Pharmacy: [facility]/pharmacy #[id number], 178, cm, 02/02/22 10:46:00 EDT, [...] Comment on above: Take 1 tablet by [facility] th once daily. fluticasone propionate 0.05 mg/actuat [...] 2017 12:00am July 23, 2018 11:55pm mag xjidm-N0-xllxgmms rt xt 500-3,000-150 mg-unit-mg tab (18 sources) End: 01-14-2023 mag xwqvi-D6-zamgkren rt xt 500-3,000-150 mg-unit-mg tab Take by mouth. 0 01/14/2023 Discontinued mag lriuu-Q1-kbk meric rt xt 500-3,000-150 mg-unit-mg tab Take [...] 10 mL injection (DEFINITY) polyethylene glycol 3350 84080 mg powder for oral solution (9 sources) [...] topically BID to affected area as needed, [facility]/pharmacy #[id number], 177.8, cm, 07/16/20 10:42:00 EST, [...] CNOV Office Visit (LOORRM) ---- SALVADORJORDI Gabriel ([id number]) 1940 M I Xcld* Date Time Provider Department 05/10/24 8:45 AM CHAITANYA WATKINS LOORRM During your visit today, we recorded the following information about you: Chaitanya Watkins, [facility] 05/10/2024 9:32 AM Signed SUBJECTIVE: The [...] 12/04/2022 Encou (more content not included)... Normal [facility] Urology Office/Clinic Noteon 02-23-2024 Urology Office/Clinic [...] E&M of Est. Patient Low 20-29 Min 09449 2. Prostate cancer screening (Z12.5: Encounter for screening for malignant neoplasm of prostate) PSA 01/17/24 - 0.24 which is low/stable and well within normal range I discussed the options concerning the PSA and continued monitoring, given his advancing age. He wants to continue monitoring his PSA levels for now. Ordered: E&M of Est. Patient Low 20-29 Min 01524 Other obstructive and reflux uropathy (N13.8: Other obstructive and reflux uropathy) Offered continued scheduled follow up with our clinic vs following up PRN. Pt prefers the latter. We will ensure PCP continues to order refills and annual PSA. Letter sent. Follow-up With When Contact Information CHANTEL NORRIS, IVONNE Hernandez, URL Only if needed [address] [place] [address] [facility] (1) Additional Instructions: Patient Education Benign Prostatic [...] influenza vir (more content not included)... Normal [facility] Comment on above: Result Comment: Elec [...] you for choosing us for your care. [facility] Provider Letteron 02-22-[address] Provider Letter Provider Letter Dr Raul Dumont, [facility] [place] [address] Re: JORDI FRANCO Date of : 1940 Dear Raul Felder DO, HOWARD B was evaluated at [facility] Urolog 02/22/2024 10:00:00 As this patient has [...] Thanks! Provider Signature: Ivonne Grant PA-C Physician Composition Floor Layer [facility] Urology [address] [place] [address] [facility] CNOVon 02-08-2024 CNOV Office Visit (LOORRM) ---- SALVADORJORDI Gabriel ([id number]) [address] [facility] Xcld* Date Time Provider Department 02/08/24 [...] [N40.0] 12/04/2022 (more content not included)... Normal [facility] XR KNEE RIGHT (1-2 VIEWS)on 12-06-2023 [...] Rosalba Guzman MD 12/06/23 Final result Normal [facility] CNPNon 11-09-2023 [facility] Telephone ([facility]) ---- JORDI FRANCO ([id number]) 1940 M HVI Xcld* Date Time Provider Department 11/09/23 FLOYD SPAULDING [facility] During your visit today, we recorded the following information about you: Radha Love 11/09/2023 3:50 PM Signed November 09, 2023 [id number] Patient Name: Jordi Gabriel Salvador Contact Information: [phone] (home) [phone] (cell) Reason For Call: Medication Issue/Question: Xerelto [...] for Visit: Medication Problem [65] Patient Question [4098] Prescriptions as of 11/19/2023 - metoprolol succinate [...] Status:Closed by RADHA LOVE on 11/19/23 Normal [facility] CNOVon 11-03-2023 CNOV Office Visit (LOORRM) ---- JORDI FRANCO ([id number]) [address] [facility] Xcld* Date Time Provider Department 11/03/23 [...] [N40.0] 12/04/2022 (more content not included)... Normal [facility] Ynes 10-19-2023 [facility] Telephone ([facility] ---- JORDI FRANCO ([id number]) 1940 M HVI Xcld* Date Time Provider [...] Pt if a prescription is sent. Natty Charels, BELA 10/19/2023 2:19 PM Signed Phoned patient [...] On mechan (more content not included)... Normal [facility] CNOVon 08-05-2023 CNOV Office Visit (LOORRM) ---- JORDI FRANCO ([id number]) 1940 M HVI Xcld* Date Time Provider [...] 12/04/2022 Encoun (more content not included)... Normal [facility] CNPNon 07-07-2023 CNPN Telephone ([facility]) ---- JORDI FRANCO ([id number]) 1940 [facility] Xcld* Date Time Provider Department 07/07/23 BARBARA WARNER [facility] During your visit today, we recorded the following information about you: Caro Montalvo, RN 07/07/2023 3:07 PM Signed Received fax from [facility] pharmacy for patient's metoprolol. Fax shows [...] Encounter Status:Closed by CARO MONTALVO on 07/08/23 [facility] CNPCarol 06-11-2023 CNPN Telephone ([facility]) ---- JORDI FRANCO ([id number]) [address] [facility] Xcld* Date Time Provider Department 06/11/23 CHAITANYA WATKINS During your visit today, we recorded the following information about you: Magalys Shen Cast Tech 06/11/2023 1:48 PM Signed Left message on identified VM that orthotics have come in and may be picked up in the [place] office. Allergies As of Date: 06/11/2023 Noted [...] Status:Closed by MAGALYS SHEN on 06/11/23 Normal [facility] CNOVon 06-04-2023 CNOV Office Visit (CEPSHL) ---- JORDI FRANCO ([id number]) 1940 M HVI Xcld* Date Time Provider Department 06/04/23 10:30 AM FLOYD SPAULDING CEPMarie During your visit today, we recorded the following information about you: Pulse Blood pressure Weight 74/minute 134/70 93 kg Floyd Spaulding MD 06/04/2023 10:50 AM Signed [facility] [place] Clem[facility] Dixon Department of Cardiovascular Medicine OUTPATIENT [...] cardiac surgery 12/04/2022 Cardiomegaly 09/22/2012 borderline Dyslipidemia CHINIK (hard of hearing) Hypertension Mitral regurgitation Pinched nerve in neck Spinal stenosis Stroke (HCC) 06/07/2007 TIA (transient ischemic attack) 06/07/2007 [facility] PAST SURGICAL HISTORY Procedure Laterality Date ATRIAL FIBRILLATION/FLUTTE R ABLATION 2001,2003, 2012 - Radiofrequency ablation for atrial fibrillation BACK SURGERY HX Disc Surgery FOOT/TOES SURGERY PROC UNLISTED 02/05/2010 Performed by CHAITANYA WATKINS at [facility] [place] 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 Normal [facility] [id number] 06-04-2023 ECG01 Ventricular Rate : 74 BPM Atrial Rate : 74 BPM P-R Interval : 174 ms QRS Duration : 108 ms Q-T Interval : 418 ms QTC Calculation(Bazett) : 463 ms Calculated P [place] : 24 degrees Calculated R [place] : -46 degrees Calculated T [place] : 24 degrees NORMAL SINUS RHYTHM LEFT AXIS DEVIATION ABNORMAL ECG Confirmed by FLOYD SPAULDING M.D. ([id number]) on 06/10/2023 7:35:58 AM NAME : JORDI FRANCO PID : [id number] : 1940 Gender : Male Race : ORD : Procedure Date : Jun 04 2023 11:24:03 Edit Date : Jun 10 2023 07:35:58 Diagnosis: NORMAL SINUS RHYTHM LEFT AXIS DEVIATION ABNORMAL ECG Confirmed by FLOYD SPAULDING M.D. ([id number]) on 06/10/2023 7:35:58 AM Test Reason : Location : 198 : [facility] 7 Overread By : FLOYD SPAULDING M.D. Edited By : FLOYD SPAULDING M.D. Referred By : FLOYD SPAULDING Acquired by : MILLY MOYER Normal [facility] XR Foot - left AP and Latera l and obliqueon 05-12-2023 IMPRESSION: No acute osseous abnormality. Seafood Specialist: ALESSIO Transcribe Date/Time: May 12 2023 9:35A [...] first MTP osteoarthritis. DIVISION OF RADIOLOGY Provider, [facility] [place] - 05/12/2023 * * *Final Report* * [...] osteoarthritis. IMPRESSION IMPRESSION: No acute osseous abnormality. Seafood Specialist: [facility] Transcribe Date/Time: May 12 2023 9:35A Dictated by : HUGH LUCERO MD This examination was interpreted and the report reviewed and electronically signed by: JOSE SAMANIEGO MD on May 12 2023 10:55AM EST [facility] Radiology Study observation (narrative) [facility] XR Foot - left AP and Latera l and obliqueOrdered By: Ccf Provider on 05-12-2023 [facility] Family Medicine Office/Clini c Noteon 05-10-2023 Family [...] of clutter to prevent tripping and/or falling. [place] Advance Directives reviewed, on file in chart. [...] follow up visits. Patient follows up with Senior Manager Asset Protection, last visit notes available in chart and have been reviewed. Cardiac Healthy Nutritional handout reviewed and provided for (more content not included)... Normal [facility] Comment on above: Result Comment: Elec [...] oz glass (more content not included)... Normal [facility] Screenson 05-06-2023 Screens [id number] Normal [facility] Ambulatory Visit Summaryon 1 07-03-2022 Ambulatory [...] IVONNE GRANT PA-C Where: [facility] Normal [address] [place] [address]-\.br\ Medications\.br\ What How Much When Instructions\.br\ Unchanged [...] hard liquor (44 mL).\.br\ Lifestyle\.br\ ? \.br\ Coffey your teeth every morning and night with [...] sure you follow all gun safety procedures.\.br\ [facility] ED Note-Physicianon 04-12-20 ED Note-Physician Basic [...] they were driving to go to the [place]. The patient denies any spinning. 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 Patient Education D (more content not included)... Normal [facility] Comment on above: Result Comment: Elec tronically Signed By: Marlene Santiago, Jh Johnson\.br\Date and Time Signed: 04/12/23 11:19 EST Auto Diffon 04-11-2023 Basophils/100 WBC (Bld) 0.7 % Normal 0.0-2.0 [facility] Comment on above: Order Comment: Order Added by Discern Expert. Performed By: #### 1 [id number], 13277348, 4665109, 1907260, 0008322, 6310991, 5115097, 74947829 ####[facility] [address] [place] [address] Basophils/Leukocytes Auto (Bld) [Pure # fraction] 0.0 E9/L Normal 0.0-0.2 [facility] Comment on above: Order Comment: Order Added by Discern Expert. Performed By: #### 1 7449309, 68155626, 2822208, 9304055, 3945340, 5464288, 9001118, 51161343 ####[facility] [address] [place] [address] Eosinophils/100 WBC (Bld) 2.5 % Normal 0.0-8.0 [facility] Comment on above: Order Comment: Order Added by Discern Expert. Performed By: #### 1 1624734, 73190381, 4340745, 3583286, 7054557, 6988306, 2308908, 31510846 ####[facility] [address] [place] [address] Eosinophils/Leukocyt es Auto (Bld) [Pure # fraction] 0.1 E9/L Normal 0.0-0.5 [facility] Comment on above: Order Comment: Order Added by Discern Expert. Performed By: #### 1 6708929, 55018808, 8020822, 9446084, 6120976, 4994414, 2722200, 83863720 ####[address] [place] [address] Lymphocytes/100 WBC (Bld) 16.8 % Normal 14.0-50.0 [facility] Comment on above: Order Comment: Order Added by Discern Expert. Performed By: #### 1 8030662, 92951285, 5318514, 7269176, 9126610, 3562488, 3739502, 35321876 ####[address] [place] [address] Lymphocytes/Leukocyt es Auto (Bld) [Pure # fraction] 0.6 E9/L Low 1.0-4.0 [facility] Comment on above: Order Comment: Order Added by Discern Expert. Performed By: #### 1 1463396, 64024364, 1479911, 5669222, 4302601, 1827045, 0299441, 79129696 ####[address] [address] Monocytes/100 WBC (Bld) 15.1 % High 4.0-14.0 [facility] Comment on above: Order Comment: Order Added by Discern Expert. Performed By: #### 1 7604677, 85315970, 2442432, 5947093, 9062537, 6038199, 2382868, 50012179 ####[address] [address] Monocytes/Leukocytes Auto (Bld) [Pure # fraction] 0.5 E9/L Normal 0.2-1.0 [facility] Comment on above: Order Comment: Order Added by Discern Expert. Performed By: #### 1 7369421, 97563726, 9346594, 0693839, 6552850, 1738296, 0080718, 60531789 ####[address] [place] [address] Neutrophils/100 WBC (Bld) 64.9 % Normal 36.0-75.0 [facility] Comment on above: Order Comment: Order Added by Discern Expert. Performed By: #### 1 3148125, 40446240, 3919987, 1850686, 5407031, 8748754, 9982532, 78210616 ####[facility] [address] [place] [address] Neutrophils/Leukocyt es Auto (Bld) [Pure # fraction] 2.3 E9/L Normal 2.0-7.5 [facility] Comment on above: Order Comment: Order Added by Discern Expert. Performed By: #### 1 4135601, 60065760, 3562093, 2194202, 9817368, 1571197, 2449919, 86378757 ####[facility] [address] [place] [address] BMPon 04-11-2023 Creatinine [Mass/Vol] 1.0 mg/dL Normal 0.5-1.3 [facility] Comment on above: Performed By: #### 1 0205637, 09335475, 8843184, 4493179, 6169977, 1371012, 3118986, 23555591 ####[facility] [address] [place] [address] Urea nitrogen [Mass/Vol] 24 mg/dL High 5-21 [facility] Comment on above: Performed By: #### 1 6088968, 30931087, 8334257, 5431575, 3702390, 4754685, 1817874, 29688911 ####[facility] [address] [place] [address] Urea nitrogen/Creatinine [Mass ratio] 24 No Units High 10-20 [facility] Comment on above: Performed By: #### 1 0701989, 77650440, 5199248, 6620539, 1257493, 2253504, 4499980, 84513846 ####[facility] [address] [place] [address] Anion gap [Moles/Vol] 8 mmol/L Normal 6-16 [facility] Comment on above: Performed By: #### 1 3833176, 25408141, 1713673, 5352148, 7381372, 7088995, 2390324, 11781365 ####[facility] [address] [place] [address] Calcium [Mass/Vol] 9.1 mg/dL Normal 8.9-11.1 [facility] Comment on above: Performed By: #### 1 0659020, 65623909, 6841996, 8958443, 2343774, 3995567, 0647503, 16012874 ####[facility] [address] [place] [address] Chloride [Moles/Vol] 105 mmol/L Normal 101-111 [facility] Comment on above: Performed By: #### 1 8121188, 05732790, 0589660, 9100576, 2558488, 7620042, 2199770, 43714958 ####[facility] [address] [place] [address] CO2 [Moles/Vol] 29 mmol/L Normal 21-31 [facility] Comment on above: Performed By: #### 1 7845639, 01076127, 0203325, 8023251, 2162385, 7681332, 5582668, 90429439 ####[facility] [address] [place] [address] Glucose [Mass/Vol] 100 mg/dL Normal 55-199 [facility] Comment on above: Result Comment: If t his glucose result represents a fasting glucose, interpretation should refer to the following reference range: 55-99 mg/dL Performed By: #### 1 3883710, 90980686, 9511974, 6648412, 2161796, 8897491, 6904094, 06896983 ####[facility] [address] [place] [address] Potassium [Moles/Vol] 3.6 mmol/L Normal 3.5-5.3 [facility] Comment on above: Performed By: #### 1 5099882, 05840402, 0045533, 3944681, 1594265, 1865878, 2881171, 38888432 ####[facility] [address] [place] [address] Sodium [Moles/Vol] 138 mmol/L Normal 135-145 [facility] Comment on above: Performed By: #### 1 2485970, 49674612, 6974199, 8301292, 5140779, 6439956, 8375925, 37646585 ####[facility] [address] [place] [address] CBC w/ Auto Diffon 3 Erythrocyte distribution width (RBC) [Ratio] 15.3 % High 10.9-14.2 [facility] Comment on above: Performed By: #### 1 4533440, 66496677, 4814527, 0156621, 0148507, 4922367, 7339141, 21973706 ####[address] [place] [address] Hematocrit (Bld) [Volume fraction] 36.6 % Low 37.7-49.0 [facility] Comment on above: Performed By: #### 1 5922487, 28981864, 4716720, 9263089, 7814810, 8915363, 8414146, 71173156 ####[address] [place] [address] Hemoglobin (Bld) [Mass/Vol] 11.9 g/dL Low 13.5-17.5 [facility] Comment on above: Performed By: #### 1 6726793, 51828202, 6112874, 0672436, 5848890, 3292730, 2809127, 39258915 ####[facility] [address] [place] [address] MCH (RBC) [Entitic mass] 27.5 pg Normal 27.0-34.0 [facility] Comment on above: Performed By: #### 1 8076355, 33000442, 4299724, 0716679, 6770941, 9649114, 7343606, 88848826 ####Lei [address] [address] MCHC (RBC) [Mass/Vol] 32.5 g/dL Normal 31.4-36.0 [facility] Comment on above: Performed By: #### 1 4106946, 00913254, 3425663, 5595890, 0751156, 1351042, 0419204, 72051424 ####[address] [place] [address] MCV (RBC) [Entitic vol] 84.6 fL Normal 80.0-100.0 [facility] Comment on above: Performed By: #### 1 0303155, 11197955, 4135421, 9509874, 1412091, 0384330, 2678843, 42767613 ####[address] [address] Platelet mean volume (Bld) [Entitic vol] 7.1 fL Normal 6.4-10.8 [facility] Comment on above: Performed By: #### 1 4931243, 98106706, 5230194, 0313134, 3779438, 5943008, 9007315, 10599460 ####[address] [address] Platelets (Bld) [#/Vol] 163.0 E9/L Normal 150.0-500.0 [facility] Comment on above: Performed By: #### 1 5643585, 06764951, 6895042, 9797510, 9639641, 3553934, 5373467, 22182154 ####[address] [address] RBC (Bld) [#/Vol] 4.3 E12/L Normal 4.3-5.9 [facility] Comment on above: Performed By: #### 1 6618883, 95029384, 2344527, 9163632, 6648391, 4115844, 6713990, 03392464 ####[address] [address] WBC corrected for nucl RBC Auto (Bld) [#/Vol] 3.6 E9/L Low 4.0-11.0 [facility] Comment on above: Performed By: #### 1 9450096, 56066249, 1665695, 1574454, 4856090, 1207288, 4154620, 27149609 ####[facility] [address] [place] [id number] CHEMISTRYOrdered By: SYSTEM SYSTEM on 04-11-2023 Albumin [...] rate/Area] 75 mL/min/1.73 m2 Normal >=59mL/min/1.73 m2 [facility] Chem S Comment on above: Interpretive [...] 8.50 pg/mL Low 15.90 - 38.40 pg/mL [facility] Remisol Comment on above: Interpretive Data: T he 95% CI (Confidence Interval) PPV (Positive Predictive Value) for myocardial infarction in females is 38 pg/mL, in males 51 pg/mL. The results should be used in conjunction with clinical conditions of myocardial infarction. (Access High Sensitivity Troponin I Instructions For Use, [facility] [place], January 2018) Urea nitrogen [Mass/Vol] 24 mg/dL High 5 - 21 mg/dL FT Remisol Urea nitrogen/Creatinine [Mass ratio] 24 mg/mg High 10 - 20 FT Remisol COAGULATIONOrdered By: Wendi Hernandez on 04-11-2023 aPTT Coag (PPP) [Time] 36.3 s Normal 25.1 - 36.5 second(s) [facility] Auto Coag Comment on above: Interpretive [...] the same coagulation reagent and instrumentation as [facility]. Currently there are no coagulation studies available worldwide for children to 14 days, and no normal ranges. Heparin therapeutic range (represented by Anti-Factor Xa activity of 0.2 - 0.4 U/mL) corresponds to PTT of 56.6 - 109.0 sec. INR Coag (PPP) [Relative time] 1.2 {INR} Invalid Interpretation Code [facility] Auto Coag Comment on above: Interpretive Data: I NR results are specifically intended to assess patients stabilized on long-term Anticoagulation therapy suggested INR s Less Intensive Anticoagulation 2.0 3.0 Conventional Range 3.0 4.5 PT Coag (PPP) [Time] 13.9 s High 9.4 - 1 2.5 second(s) [facility] Auto Coag Comment on above: Interpretive [...] the same coagulation reagent and instrumentation as [facility] [place]. Currently there are no coagulation studies [...] FINAL REPORT Dictated: 04/11/2023 11:03 am Dajuan nEgle MD, V. Signed (Electronic Signature): 04/11/2023 11:03 am Signed by: Dajuan Engle MD, V. Transcribed by: GREGG Technologist: ORLY Normal [facility] Consent for Treatmenton Consent for Treatment [id number] Normal [facility] Discharge Instructionson Discharge Instructions [id number] Normal [facility] ED Clinical Summaryon 2022 ED Clinical Summary [address] [address] ED Clinical Summary Person Information Name: JORDI FRANCO [place] Age: 82 Years : 1940 Sex: Male Language: Japanese PCP: Raul DUMONT DO Marital Status: Visit [...] 04/11/2023 12:30:48 04/11/2023 12:30:48 04/11/2023 12:30:48 ADDRESS: [address] [place] [phone] PHYS DOC NOTES: MEDICAL INFORMATION: Prescriptions Given: [...] Follow up: With: Address: When: Raul DUMONT [address] [facility] [place] [address] [phone] Business (1) In 3 days 04/14/2023 Comments: Return to the emergency room if your dizziness recurs or any new symptoms. DIAGNOSIS: 1:Dizziness Normal [facility] ED Patient Education Noteon 04-11-2023 ED [...] is good. ? 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 ? Take tlwd-zle-tfbfnyn and prescription medicines only as told by [...] Reviewed: 04/28/2021 Elsevier Patient Education ? 2022 [employer] Normal [facility] ED Patient Summaryon 023 ED Patient Summary [place] [address] Patient Discharge Instructions Person Information Name: EMRLINJOSIANEMAGDIEL JORDI Gabriel Age: 82 Years Arrival Date: 04/11/2023 09:36:59 Discharge Diagnosis: 1:Dizziness Primary Care Physician: Raul DUMONT DO Provider Information Primary Provider: Jh Rosario M.D. Advanced Kinder Teacher:None The exam and treatment you received in the Emergency Department were for an urgent problem and are not intended as complete care. It is important that you follow up with a doctor, nurse practitioner, or physician?s nurse practitioner physician assistant for ongoing care. If your symptoms [...] Follow-up Instructions: With: Address: When: Raul DUMONT [address] [facility] [place] [address] [phone] Business (1) In 3 days 04/14/2023 Comments: [...] opioids can be used to help relieve rfkkgtts-ko-vdaxda pain and are often prescribed following a [...] be struggling with addiction, tell your health pet caretaker and ask for kierra (more content not included)... Normal [facility] HEMATOLOGYOrdered By: SYSTEM SYSTEM on 04-11-2023 [...] 15.3 % High 10.9 - 14.2 % [facility] HemeAutoSS Hematocrit (Bld) [Volume fraction] 36.6 % Low 37.7 - 49.0 % [facility] HemeAutoSS Hemoglobin (Bld) [Mass/Vol] 11.9 g/dL Low 13.5 - 17.5 gm/dL [facility] HemeAutoSS MCH (RBC) [Entitic mass] 27.5 pg Normal 27.0 - 34.0 pg [facility] HemeAutoSS MCHC (RBC) [Mass/Vol] 32.5 g/dL Normal 31.4 - 36.0 gm/dL [facility] HemeAutoSS MCV (RBC) [Entitic vol] 84.6 fL Normal 80.0 - 100.0 fL [facility] HemeAutoSS Platelet mean volume (Bld) [Entitic vol] 7.1 fL Normal 6.4 - 10.8 fL [facility] HemeAutoSS Platelets (Bld) [#/Vol] 163.0 E9/L Normal 150.0 - 500.0 E9/L [facility] HemeAutoSS RBC (Bld) [#/Vol] 4.3 E12/L Normal 4.3 - 5.9 E12/L [facility] HemeAutoSS WBC corrected for nucl RBC Auto (Bld) [#/Vol] 3.6 E9/L Low 4.0 - 11.0 E9/L [facility] HemeAutoSS Hep Func Panelon 04-11-2023 Albumin [Mass/Vol] 3.8 g/dL Normal 3.3-5.0 [facility] Comment on above: Performed By: #### 1 [id number], 58764411, 1522509, 4559378, 4592302, 7350959, 2023291, 30444378 ####[facility] [address] [place] [address] Albumin/Globulin (S) [Mass conc ratio] 1.2 Normal 1.1-2.2 [facility] Comment on above: Performed By: #### 1 4735671, 13527550, 2778708, 4894618, 2947465, 0132118, 3013113, 20090301 ####[facility] [address] [place] [address] ALP [Catalytic activity/Vol] 79 Int._Unit/L Normal 21-98 [facility] Comment on above: Performed By: #### 1 0093561, 43642420, 3539374, 5171497, 7209943, 5412981, 2956350, 33216176 ####[address] [address] ALT No additional P-5'-P [Catalytic activity/Vol] 16 Int._Unit/L Normal 6-46 [facility] Comment on above: Performed By: #### 1 8635035, 18688365, 4714124, 5747835, 6475064, 9591077, 2809424, 30757893 ####[address] [address] AST [Catalytic activity/Vol] 24 Int._Unit/L Normal 5-43 [facility] Comment on above: Performed By: #### 1 7639048, 86953700, 1344472, 0847980, 9039148, 9997685, 5332910, 07180384 ####[address] [address] Bilirubin [Mass/Vol] 0.5 mg/dL Normal 0.0-1.1 [facility] Comment on above: Performed By: #### 1 8261531, 75610000, 6912535, 1878659, 6087105, 3375088, 2856331, 11092107 ####[facility] [address] [place] [address] Bilirubin.direct [Mass/Vol] 0.1 mg/dL Normal 0.1-0.4 [facility] Comment on above: Performed By: #### 1 4877851, 23228906, 7926685, 8132744, 8784808, 0401867, 3324987, 61578088 ####[address] [address] Bilirubin.indirect [Mass or moles/Vol] 0.4 mg/dL Normal 0.1-0.9 [facility] Comment on above: Performed By: #### 1 7164302, 17097008, 3677559, 9188583, 3957504, 2470220, 0247046, 40216566 ####[facility] [address] [place] [address] Globulin (S) [Mass/Vol] 3.1 g/dL Normal 1.4-4.0 [facility] Comment on above: Performed By: #### 1 5583351, 49917356, 9208727, 2068740, 1438878, 9760157, 4079008, 38151751 ####[facility] [address] [place] [address] Protein [Mass/Vol] 6.9 g/dL Normal 6.0-7.8 [facility] Comment on above: Performed By: #### 1 2453087, 66469114, 0106762, 8776932, 0058181, 3247434, 7891027, 77860234 ####[facility] [address] [place] [address] Magnesiumon 04-11-2023 Magnesium [Mass/Vol] 2.0 mg/dL Normal 1.3-2.4 [facility] Comment on above: Performed By: #### 1 0814123, 09531558, 5398099, 1929996, 9925842, 8600764, 5462411, 06476463 ####[facility] [address] [place] [address] Monitor Recordon 04-11-2023 Monitor Record [id number]#[id number] Normal [facility] PT & PTTon 04-11-2023 aPTT Coag (PPP) [Time] 36.3 second(s) Normal 25.1-36.5 [facility] Comment on above: Result Comment: Para [...] the same coagulation reagent and instrumentation as [facility]. Currently there are no coagulation studies available worldwide for children to 14 days, and no normal ranges. Heparin therapeutic range (represented by Anti-Factor Xa activity of 0.2 - 0.4 U/mL) corresponds to PTT of 56.6 - 109.0 sec. Performed By: #### 1 8294188, 08912111, 8389935, 2547812, 4389430, 8334718, 7362113, 70279612 ####[facility] [address] [place] [address] INR Coag (PPP) [Relative time] 1.2 {INR} Invalid Interpretation Code [facility] Comment on above: Result Comment: INR results are specifically intended to assess patients stabilized on long-term Anticoagulation therapy suggested INR?s ?Less Intensive Anticoagulation? 2.0 ? 3.0 Conventional Range 3.0 ? 4.5 Performed By: #### 1 2403251, 80434574, 2468258, 8112305, 5236104, 9954902, 1085021, 66987711 ####[facility] [address] [place] [address] PT Coag (PPP) [Time] 13.9 second(s) High 9.4-12.5 [facility] Comment on above: Result Comment: 15 [...] the same coagulation reagent and instrumentation as [facility]. Currently there are no coagulation studies available worldwide for children to 14 days, and no normal ranges. Performed By: #### 1 2791038, 41506641, 5997938, 1321626, 8836727, 8986090, 4551974, 10472088 ####[facility] [address] [place] [address] Troponin 0 Hr.on 04-11-2023 Troponin I.cardiac [Mass/Vol] 8.50 pg/mL Low 15.90-38.40 [facility] Comment on above: Result Comment: The 95% CI (Confidence Interval) PPV (Positive Predictive Value) for myocardial infarction in females is 38 pg/mL, in males 51 pg/mL. The results should be used in conjunction with clinical conditions of myocardial infarction. (Access High Sensitivity Troponin I Instructions For Use, Dov [email or web address], January 2018) Performed By: #### 1 8037389, 37182788, 1062311, 8510655, 7342811, 9561902, 4238681, 93007663 ####[place] [address] [place] [address] UA With Cult Reflexon 2022 Bilirubin Ql (U) Negative Normal Negative [facility] Comment on above: Performed By: #### 1 6929740 ####[address] [address] Clarity (U) CLEAR Normal Clear [facility] Comment on above: Performed By: #### 1 1768839 ####[place] [address] [place] [address] Color (U) YELLOW Normal Yellow [facility] Comment on above: Performed By: #### 1 7337634 ####[place] [address] [place] [address] Epithelial cells.squamous LM.HPF (Urine sed) [#/Area] 0-2 Normal 0-2 [facility] Comment on above: Performed By: #### 1 9478370 ####[facility] [address] [facility] [place] [address] Glucose Test strip (U) [Mass/Vol] Negative Normal Negative [facility] Comment on above: Performed By: #### 1 6054982 ####[facility] [address] [facility] [place] [address] Hemoglobin Ql (U) Negative Normal Negative [facility] Comment on above: Performed By: #### 1 8661647 ####[facility] [address] [facility] [place] [address] Ketones (U) [Mass/Vol] Negative Normal Negative [facility] Comment on above: Performed By: #### 1 3399253 ####[address] [place] [address] Mcpherson.plasma/Lithi um.RBC (Bld) [Mass ratio] 0-3 Normal 0-3 [facility] Comment on above: Performed By: #### 1 6093691 ####[facility] [address] [facility] [place] [address] Nitrite Ql (U) Negative Normal Negative [facility] Comment on above: Performed By: #### 1 2183370 ####[address] [address] pH (U) 6.0 [pH] Invalid Interpretation Code 5.0-9.0 [facility] Comment on above: Performed By: #### 1 4580725 ####[place] [place] [address] Protein (U) [Mass/Vol] Negative Normal Negative [facility] Comment on above: Performed By: #### 1 4856320 ####[place] [address] [facility] [place] [address] Specific gravity (U) [Rel density] 1.015 Invalid Interpretation Code 1.005-1.030 [facility] Comment on above: Performed By: #### 1 9448387 ####[place] [address] [place], [place] [address] Type of Urine collection method Clean Catch Normal [facility] Comment on above: Performed By: #### 1 9764435 ####[facility] [address] [place] [address] Urobilinogen Qn (U) 0.2 {Nasra'U}/dL Normal 0.0-1.0 [facility] Comment on above: Performed By: #### 1 3707711 ####[facility] [address] [place], [place] [address] WBC Auto Ql (U) Negative Normal Negative [facility] Comment on above: Performed By: #### 1 7446955 ####[facility] [address] [place], [place] [address] WBC LM.HPF (Urine sed) [#/Area] 0-5 Normal 0-5 [facility] Comment on above: Performed By: #### 1 3539564 ####[facility] [address] [place], [place] [address] URINALYSISOrdered By: Matthew Hernandez on 04-11-2023 Bilirubin [...] AM) Normal Negative [facility] UA Auto SS Mcpherson.plasma/Lithi um.RBC (Bld) [Mass ratio] 0-3 /HPF Normal 0-3/HPF [facility] UA Auto SS Nitrite Ql (U) Negative (04/11/23 11:25 AM) Normal Negative [facility] UA Auto SS pH (U) 6.0 *NA* (04/11/23 11:25 AM) Invalid Interpretation Code 5.0 - 9.0 [facility] UA Auto SS Protein (U) [Mass/Vol] Negative (04/11/23 11:25 AM) Normal Negative [facility] UA Auto SS Specific gravity (U) [Rel density] 1.015 *NA* (04/11/23 11:25 AM) Invalid Interpretation Code 1.005 - 1.030 [facility] UA Auto SS UA Spec Desc Clean Catch (04/11/23 11:25 AM) Normal [facility] UA Auto SS Urobilinogen Qn (U) 0.3980591 {Nasra'U}/dL Normal 0.0 - 1.0 EU/dL [facility] UA Auto SS WBC Auto Ql (U) Negative (04/11/23 11:25 AM) Normal Negative [facility] UA Auto SS WBC LM.HPF (Urine sed) [#/Area] 0-5 /HPF Normal 0-5/HPF [facility] UA Auto SS XR Chest Single [...] mGy = na DAP = na Normal [facility] eGFRon 04-11-2023 GFR/1.73 sq M.predicted among non-blacks MDRD (S/P/Bld) [Vol rate/Area] 75 mL/min/1.73 m2 Normal >=59 [facility] Comment on above: Order Comment: Order added by Discern Expert. Result Comment: Financial Coach lin kidney disease could be indicated at eGFR's of less than 60 mL/min/1.73m2. Kidney failure is indicated at less than 15 mL/min/1.73m2. Performed By: #### 1 9901193, 43821759, 0587993, 9781670, 4656484, 5082385, 1510880, 48162578 ####[facility] [place] [address] CNOVon 01-14-2023 [facility] ---- JORDI FRANCO ([id number]) 1940 M I Xcld* Date Time Provider Department 01/14/23 1:30 PM BARBARA WARNER [facility] During your visit today, we recorded the following information about you: Pulse Blood pressure Weight Height 95/minute 120/74 90.3 kg 1.778 m Barbara Warner APRN.ARCHITECTURAL DRAFTER, RAMÓN 01/14/2023 1:50 PM Signed [facility] [facility] Department of Cardiovascular Medicine SECTION OF CLINICAL CARDIOLOGY OUTPATIENT VISIT DATE January 14, 2023 OUTPATIENT VISIT TYPE ESTABLISHED PRIMARY CARE PHYSICIAN: Raul Dumont [facility] [address] [place] [address] REFERRING PHYSICIAN: Hugo Solano [address] [facility] [address] CHIEF COMPLAINT: Established Patient and Hospital Follow [...] cardiac surgery 12/04/2022 Cardiomegaly 09/22/2012 borderline Dyslipidemia [place] (hard of hearing) Hypertension Mitral regurgitation Pinched nerve in neck Spinal stenosis Stroke (HCC) 06/07/2007 TIA (transient ischemic attack) 06/07/2007 Verruyeimy PAST SURGICAL HISTORY Procedure Laterality Date ATRIAL FIBRILLATION/FLUTTE R ABLATION 2001,2003, 2012 - Radiofrequency ablation for atrial fibrillation BACK SURGERY HX Disc Surgery FOOT/TOES SURGERY PROC UNLISTED 02/05/2010 Performed by CHAITANYA WATKINS at [facility] 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 mag lyhpr-V2-liyycbky rt xt 500-3,000-150 mg-unit-mg tab Take by mouth. (Patient not taking: Reported on 12/16/2022) lysine 500 mg tab Take by mouth. (Patient not taking: Reported on 12/16/2022) Vitamin E Acetate, Bulk, 12 (more content not included)... Normal [facility] EKGon 01-14-2023 Electrocardiogram Systolic BP : 120 mmHg Diastolic BP : 74 mmHg Ventricular Rate : 95 BPM Atrial Rate : 95 BPM P-R Interval : 166 ms QRS Duration : 98 ms Q-T Interval : 366 ms QTC Calculation(Bazett) : 459 ms Calculated P [place] : 10 degrees Calculated R [place] : -48 degrees Calculated T [place] : 32 degrees NORMAL SINUS RHYTHM LEFT AXIS DEVIATION ABNORMAL ECG Confirmed by SAVANNA ZHANG MD ([id number]) on 12/01/2023 9:36:11 PM NAME : JORDI FRANCO PID : [id number] : 1940 Gender : Male Race : ORD : Procedure Date : Jan 14 2023 13:15:35 Edit Date : Dec 01 2023 21:36:14 Diagnosis: NORMAL SINUS RHYTHM LEFT AXIS DEVIATION ABNORMAL ECG Confirmed by SAVANNA ZHANG MD ([id number]) on 12/01/2023 9:36:11 PM Test Reason : Location : 556 : [facility]ARD Overread By : SAVANNA ZHANG MD Edited By : SAVANNA ZHANG MD Referred By : HUGO SOLANO Acquired by : , [facility] XR CHEST 2V FRONTAL/LATon [facility] - Microbiology an d Antimicrobial susceptibilityon 12-03-2022 S. aureus and MRSA panel TINO+probe (Nose) Negative Negative [facility] CREATININE, BLOOD (POC)on Creatinine [Mass/Vol] 1.20 mg/dL 0.7 - 1.4 mg/dL [facility] eGFR (POCT) [facility] CTA CHEST (GATED) W IVCONon 12-01-2022 [facility] ECHO TRANSESOPHAGEALon 10-19 [facility] LVEF ECHO TRANSESOPHAGEALon 10-19-2022 LV Ejection Fraction 55 % [facility] METHYLMALONIC ACID (MMA)on 0 12-31-2021 Methylmalonic Acid, Serum 198 nmol/L Normal 0-378 [facility] Comment on above: Performed By: #### M AL2 #### [facility] [address] [address] [address] Bryn Santo MR head/brain wo conon 12-30 MR head/brain wo con [place] [address] MRI Report Signed Patient: Jordi Franco MR#: [id number] : 1940 Acct:[id number] Age/Sex: 81 / M ADM Date: 12/30/21 Loc: [facility] Room: Type: [facility] Attending Dr: Rgahav Hubbard MD Copies to: Raghav Hubbard MD [...] Dillon Flores M.D.12/30/2021 10:26 AM Dictation Location: [place] [address] Transcribed By: MONIK 12/30/21 1026 Dictated By: Dillon Flores II, MD 12/30/21 1023 Signed By: 12/30/21 1026 [facility] TSHon 12-25-2021 TSH 1.025 uIU/mL Normal 0.358-3.740 [facility] Comment on above: Performed By: #### T SH #### [facility] [address] [place] [address] Dr. Bryn Santo VIT B12 AND FOLATEon 022 Cobalamin (Vitamin B12) [Mass/Vol] 1345.0 pg/mL Critically high 193.0-986.0 [facility] Comment on above: Performed By: #### B 12FOL #### [facility] [address] [place] [address] Dr. Bryn Santo FOLATE 21.70 ng/mL Normal 8.60-58.90 [facility] Comment on above: Performed By: #### B 12FOL #### [facility] [address] [place] [address] chest wo conon 06-27-2021 CT chest wo con [facility] [address] [address] [address] Scan Report Signed Patient: Jordi Franco MR#: [id number] : 1940 Acct:[id number] Age/Sex: 80 / M ADM Date: 06/27/21 Loc: ER Room: Type: [facility] ER Attending Dr: Ordering Provider: Kate King [...] Td Garcia M.D.06/27/2021 8:35 PM Dictation Location: [place] [address] Transcribed By: [facility] 06/27/212034 Dictated By: Td Garcia DO 06/27/212025 Signed By: 06/27/212034 Normal [facility] XR hip LT min 2V(w/wo pelvis )*on 06-27-2021 XR hip LT min 2V(w/wo pelvis)* [facility] [address] [address] XRay Report Signed Patient: Jordi Franco MR#: [id number] : 1940 Acct:[id number] Age/Sex: 80 / M ADM Date: 06/27/21 [...] Td Garcia M.D.06/27/2021 7:40 PM Dictation Location: [place] [address] Transcribed By: [facility] 06/27/211939 Dictated By: Td Garcia DO 06/27/211939 Signed By: 06/27/211939 [facility] NR MR L-SPINE WO/W CONTRASTo n 07-26-2019 NR MR L-SPINE WO/W CONTRAST Patient Name: JORDI FRANCO STUDY: MR L-SPINE WO/W CONTRAST; 07/26/2019 1:19 pm INDICATION: Other spondylosis with radiculopathy, lumbar region. COMPARISON: None. ACCESSION NUMBER(S): [id number] ORDERING CLINICIAN: MARY MOLINA TECHNIQUE: The lumbar [...] changes as described The examination was interpreted [facility] Electronically signed by: PAULINE PADILLA MD Normal [facility] NR MRI CERVICAL WOon 020 NR MRI CERVICAL WO Patient Name: JORDI FRANCO STUDY: MRI CERVICAL WO; 07/26/2019 1:19 pm INDICATION: Other spondylosis with radiculopathy, lumbar region. COMPARISON: None. ACCESSION NUMBER(S): [id number] ORDERING CLINICIAN: MARY MOLINA TECHNIQUE: Sagittal and [...] foraminal narrowing. THIS EXAMINATION WAS INTERPRETED AT [facility] Electronically signed by: PAULINE PADILLA MD Normal [facility] BASIC METABOLIC PANELon 07-08 Anion gap [Moles/Vol] 11 mmol/L Normal 10 - 20 [facility] Comment on above: Performed By: #### B MP #### [address] [address] Calcium [Mass/Vol] 9.5 mg/dL Normal 8.6 - 10.3 [facility] Comment on above: Performed By: #### B MP #### [facility] [address] [place] [address] Chloride [Moles/Vol] 102 mmol/L Normal 98 - 107 [facility] Comment on above: Performed By: #### B MP #### [address] [address] Creatinine [Mass/Vol] 1.08 mg/dL Normal 0.50 - 1.30 [facility] Comment on above: Performed By: #### B MP #### [address] [place] [address] GFR- AM. >60 Normal >60 [facility] Comment on above: Result Comment: CALC ULATIONS OF ESTIMATED GFR ARE PERFORMED USING THE MDRD STUDY EQUATION FOR THE IDMS-TRACEABLE CREATININE METHODS. CLIN CHEM 2007;53:766-72 Performed By: #### B MP #### [address] [place] [address] GFR-NON AM. >60 Normal >60 [facility] Comment on above: Performed By: #### B MP #### [address] [place] [address] Glucose [Mass/Vol] 122 mg/dL High 74 - 99 [facility] Comment on above: Performed By: #### B MP #### [address] [place] [address] HCO3 (Bld) [Moles/Vol] 31 mmol/L Normal 21 - 32 [facility] Comment on above: Performed By: #### B MP #### [address] [place] [address] Potassium [Moles/Vol] 4.6 mmol/L Normal 3.5 - 5.3 [facility] Comment on above: Performed By: #### B MP #### [address] [place] [address] Sodium [Moles/Vol] 139 mmol/L Normal 136 - 145 [facility] Comment on above: Performed By: #### B MP #### [address] [address] Urea nitrogen [Mass/Vol] 19 mg/dL Normal 6 - 23 [facility] Comment on above: Performed By: #### B MP #### [address] [place] [address] HGB + HCTon 07-21-2019 Hematocrit (Bld) [Volume fraction] 45.4 % Normal 41.0 - 52.0 [facility] Comment on above: Performed By: #### H H #### [address] [place] [address] Hemoglobin (Bld) [Mass/Vol] 13.9 g/dL Normal 13.5 - 17.5 [facility] Comment on above: Performed By: #### H H #### [facility] [address] [place] [address] Vital Signs Date Time Vital Sign Value Performing Clinician Facility 11-04-2023 14:49-0400 Body height 176.53 cm [facility] 11-04-2023 14:49-0400 Body mass index (BMI) [Ratio] 28.8 kg/m2 [facility] 11-04-2023 14:49-0400 Body temperature 98.4 [degF] [facility] 11-04-2023 14:49-0400 Body weight 89.81 kg [facility] 11-04-2023 14:49-0400 Heart rate 62 /min [facility] 11-04-2023 14:49-0400 Respiratory rate 18 /min [facility] 11-04-2023 14:49-0400 SaO2% (BldA) [Mass fraction] 97 % [facility] 06-30-2023 13:35-0500 Body height 177.8 cm Clara Aranza Other [employer] Other 06-30-2023 13:35-0500 Body mass index (BMI) [Ratio] 28.75 kg/m2 Clara Aranza Other [employer] Other 06-30-2023 13:35-0500 Body temperature 97.5 [degF] Clara Aranza Other [employer] Other 06-30-2023 13:35-0500 Body weight 90.9 kg Clara Aranza Other [employer] Other 06-30-2023 13:35-0500 Diastolic blood pressure 74 mm[Hg] Clara Cobian Other [employer] Other 01-24-2024 13:35-0500 Respiratory rate 20 /min Clara Cobian Other [employer] Other 06-30-2023 13:35-0500 SaO2% (BldA) [Mass fraction] 97 % Clara Cobian Other [employer] Other 06-30-2023 13:35-0500 Systolic blood pressure 124 mm[Hg] Clara Tomlinsonmond Other [employer] Other 05-03-2023 11:10-0500 Blood Pressure Location MP MICHELLE [facility] 05-03-2023 11:10-0500 Diastolic blood pressure 60 mm[Hg] MP [facility]HEL[facility] 05-03-2023 11:10-0500 Heart rate 82 /min [facility] MIC[facility] 05-03-2023 11:10-0500 Respiratory rate 16 /min [facility] MIC[facility] 05-03-2023 11:10-0500 SaO2% (BldA) [Mass fraction] 94 % MP MICHEL[facility] 05-03-2023 11:10-0500 Systolic blood pressure 130 mm[Hg] MP MICHELLE [facility] 04-22-2023 14:20-0500 Body height 177.8 cm Lisa Archibald Other [employer] Other 04-22-2023 14:20-0500 Body mass index (BMI) [Ratio] 28.98 kg/m2 Lisa Archibald Other [employer] Other 04-22-2023 14:20-0500 Body temperature 98.4 [degF] Lisa Archibald Other [employer] Other 04-22-2023 14:20-0500 Body weight 91.63 kg Lisa Archibald Other [employer] Other 04-22-2023 14:20-0500 Diastolic blood pressure 73 mm[Hg] Lisa Archibald Other [employer] Other 04-22-2023 14:20-0500 Respiratory rate 18 /min Lisa Archibald Other [employer] Other 04-22-2023 14:20-0500 SaO2% (BldA) [Mass fraction] 97 % Lisa Archibald Other [employer] Other 04-22-2023 14:20-0500 Systolic blood pressure 136 mm[Hg] Lisa Archibald Other [employer] Other 04-11-2023 12:31-0500 Diastolic blood pressure 88 mm[Hg] [facility] 04-11-2023 12:31-0500 Heart rate 101 /min [facility] 04-11-2023 12:31-0500 Mean blood pressure 108 mm[Hg] [facility] 04-11-2023 12:31-0500 Respiratory rate 55 /min [facility] 04-11-2023 12:31-0500 SaO2% (BldA) [Mass fraction] 95 % [facility] 04-11-2023 12:31-0500 Systolic blood pressure 147 mm[Hg] [facility] 04-11-2023 12:15-0500 Hourly Rounding [facility] 04-11-2023 12:00-0500 Diastolic blood pressure 77 mm[Hg] [facility] 04-11-2023 12:00-0500 Heart rate 97 /min [facility] 04-11-2023 12:00-0500 Mean blood pressure 102 mm[Hg] [facility] 04-11-2023 12:00-0500 Respiratory rate 67 /min [facility] 04-11-2023 12:00-0500 SaO2% (BldA) [Mass fraction] 94 % [facility] 04-11-2023 12:00-0500 Systolic blood pressure 152 mm[Hg] [facility] 04-11-2023 11:00-0500 Diastolic blood pressure 86 mm[Hg] [facility] 04-11-2023 11:00-0500 Heart rate 93 /min [facility] 04-11-2023 11:00-0500 Mean blood pressure 107 mm[Hg] [facility] 04-11-2023 11:00-0500 Respiratory rate 13 /min [facility] 04-11-2023 11:00-0500 Systolic blood pressure 149 mm[Hg] [facility] 04-11-2023 10:15-0500 gluc 100 mg/dL [facility] 04-11-2023 10:15-0500 gluc [facility] 04-11-2023 09:46-0500 Body temperature 97.7 [degF] [facility] 04-11-2023 09:46-0500 Heart rate 104 /min [facility] 04-11-2023 09:46-0500 Respiratory rate 20 /min [facility] 02-16-2023 11:25-0400 Blood Pressure Location IVONNE GRANT [facility] 02-16-2023 11:25-0400 Diastolic blood pressure 76 mm[Hg] IVONNE GRANT [facility] 02-16-2023 11:25-0400 Heart rate 68 /min IVONNE CASTELLONRY [facility] 02-16-2023 11:25-0400 Respiratory rate 16 /min IVONNE GRANT [facility] 02-16-2023 11:25-0400 Systolic blood pressure 134 mm[Hg] IVONNE GRANT [facility] 01-14-2023 13:10-0400 Body height 177.8 cm Barbara Warner FRUIT GRADER OPERATOR.BENJAMIN, DNP Work Phone: [facility] 01-14-2023 13:10-0400 Body weight 90.27 kg Barbara Crawford FRUIT GRADER OPERATOR.BENJAMIN DNP Work Phone: [facility] 01-14-2023 13:10-0400 Diastolic blood pressure 74 mm[Hg] Barbara Jaron FRUIT GRADER OPERATOR.BENJAMIN DNP Work Phone: [facility] 01-14-2023 13:10-0400 Heart rate 95 /min Barbara Crawford FRUIT GRADER OPERATOR.BENJAMIN, DNP Work Phone: [facility] 01-14-2023 13:10-0400 Systolic blood pressure 120 mm[Hg] Barbara Jaron FRUIT GRADER OPERATOR.BENJAMIN, DNP Work Phone: [facility] 12-16-2022 13:28-0400 Body height 177.8 cm Mary Jo Olvera FRUIT GRADER OPERATOR.ARCHITECTURAL DRAFTER Work Phone: [facility] 12-16-2022 13:28-0400 Body temperature 98.4 [degF] Mary Jo Laffey FRUIT GRADER OPERATOR.ARCHITECTURAL DRAFTER Work Phone: [facility] 12-16-2022 13:28-0400 Body weight 87.82 kg Mary Jo Olvera FRUIT GRADER OPERATOR.ARCHITECTURAL DRAFTER Work Phone: [facility] 12-16-2022 13:28-0400 Diastolic blood pressure 72 mm[Hg] Mary Jo Olvera FRUIT GRADER OPERATOR.ARCHITECTURAL DRAFTER Work Phone: [facility] 12-16-2022 13:28-0400 Heart rate 76 /min Mary Jo Olvera FRUIT GRADER OPERATOR.ARCHITECTURAL DRAFTER Work Phone: [facility] 12-16-2022 13:28-0400 SaO2% (BldA) [Mass fraction] 97 % Mary Jo Olvera FRUIT GRADER OPERATOR.ARCHITECTURAL DRAFTER Work Phone: [facility] 12-16-2022 13:28-0400 Systolic blood pressure 102 mm[Hg] Mary Jo Olvera FRUIT GRADER OPERATOR.ARCHITECTURAL DRAFTER Work Phone: [facility] 12-03-2022 10:04-0400 Body height 177.8 cm [facility] Work Phone: [facility] 12-03-2022 10:04-0400 Body temperature 99 [degF] [facility] Work Phone: [facility] 12-03-2022 10:04-0400 Body weight 91.63 kg [facility] Work Phone: [facility] 12-03-2022 10:04-0400 Diastolic blood pressure 71 mm[Hg] [facility] Work Phone: [facility] 12-03-2022 10:04-0400 Heart rate 69 /min [facility] Work Phone: [facility] 12-03-2022 10:04-0400 Respiratory rate 14 /min [facility] Work Phone: [facility] 12-03-2022 10:04-0400 SaO2% (BldA) [Mass fraction] 97 % [facility] Work Phone: [facility] 06-29-2023 10:04-0400 Systolic blood pressure 119 mm[Hg] [facility] Work Phone: [facility] 10-19-2022 15:15-0400 Diastolic blood pressure 60 mm[Hg] Savanna Zhang MD Work Phone: [facility] 10-19-2022 15:15-0400 Heart rate 60 /min Savanna Zhang MD Work Phone: [facility] 10-19-2022 15:15-0400 Respiratory rate 38 /min Savanna Zhang MD Work Phone: [facility] 10-19-2022 15:15-0400 SaO2% (BldA) [Mass fraction] 92 % Savanna Zhang MD Work Phone: [facility] 10-19-2022 15:15-0400 Systolic blood pressure 118 mm[Hg] Savanna Zhang MD Work Phone: [facility] 10-19-2022 12:15-0400 Body temperature 98.4 [degF] Savanna Zhang MD Work Phone: [facility] 10-05-2022 08:49-0400 Body height 177.8 cm Savanna Zhang MD Work Phone: [facility] 10-05-2022 08:49-0400 Body weight 93.08 kg Savanna Zhang MD Work Phone: [facility] 10-05-2022 08:49-0400 Diastolic blood pressure 62 mm[Hg] Savanna Zhang MD Work Phone: [facility] 10-05-2022 08:49-0400 Heart rate 62 /min Savanna Zhang MD Work Phone: [facility] 10-05-2022 08:49-0400 Systolic blood pressure 130 mm[Hg] Savanna Zhang MD Work Phone: [facility] 07-20-2022 14:01-0500 Blood Pressure Location ISABELA PEMBROKE [facility] 07-20-2022 14:01-0500 Diastolic blood pressure 72 mm[Hg] ISABELA SIDELL [facility] 07-20-2022 14:01-0500 Heart rate 56 /min ISABELA SIDELL [facility] 07-20-2022 14:01-0500 SaO2% (BldA) [Mass fraction] 94 % ISABELA SIDELL [facility] 07-20-2022 14:01-0500 Systolic blood pressure 140 mm[Hg] ISABELA SIDELL [facility] 04-22-2022 13:10-0500 Blood Pressure Location Janel Klonk [facility] 04-22-2022 13:10-0500 Heart rate 134 /min Janel Klonk [facility] 04-22-2022 13:10-0500 Respiratory rate 74 /min Janel Klonk [facility] 04-22-2022 13:10-0500 SaO2% (BldA) [Mass fraction] 96 % Janel Klonk [facility] 04-02-2022 07:57-0400 Body height 175.3 cm Savanna Zhang MD Work Phone: [facility] 04-02-2022 07:57-0400 Body weight 87.09 kg Savanna Zhang MD Work Phone: [facility] 04-02-2022 07:57-0400 Diastolic blood pressure 68 mm[Hg] Savanna Zhang MD Work Phone: [facility] 04-02-2022 07:57-0400 Heart rate 74 /min Svaanna Zhang MD Work Phone: [facility] 04-02-2022 07:57-0400 Systolic blood pressure 136 mm[Hg] Savanna Zhang MD Work Phone: [facility] Encounters Encounter Date Encounter Type Care Provider Facility Start: 06-22-2024 End: 06-22-2024 Office outpatient visit 15 minutes Paradise Tyler MD Work Phone: [facility] Comment on above: Melanocytic nevi of trunk (Primary Dx); Angioma of skin; Lentigines; Seborrheic keratosis; History of malignant melanoma of skin Start: 06-22-2024 End: 06-22-2024 ambulatory PARADISE TYLER Not Available Start: 06-22-2024 End: 06-22-2024 Bambonathalia Tyler MD Work Phone: [facility] Start: 06-22-2024 End: 06-22-2024 Bamboo flowsbecky Tyler MD Work Phone: [facility] Start: 05-10-2024 End: 05-10-2024 ambulatory CHAITANYA WATKINS Facility:[facility] Start: 05-10-2024 End: 05-10-2024 Patient encounter procedure Chaitanya Watkins DPM Work Phone: Orthopaedics Comment on above: Onychomycosis (Prima ry Dx); Pain in toes of both feet Start: 05-09-2024 ambulatory Raul Martinez y:FM Topher Start: 03-09-2024 End: 03-10-2024 Refill Floyd Spaulding MD Work Phone: Cardiology Comment on above: Refill Request Start: 02-22-2024 End: 02-22-2024 ambulatory IVONNE GRANT Facility:[facility] Start: 02-22-2024 End: 02-22-2024 Patient encounter procedure IVONNE GRANT [facility] Start: 02-17-2024 End: 02-17-2024 Bamboo flowsheet Rebekah Marquez FRUIT GRADER OPERATOR-ARCHITECTURAL DRAFTER Work Phone: [facility] Start: 02-17-2024 End: 02-17-2024 Bamboo flowsheet Rebekah Marquez FRUIT GRADER OPERATOR-ARCHITECTURAL DRAFTER Work Phone: [facility] Start: 02-17-2024 End: 02-17-2024 Office outpatient visit 15 minutes Rebekah Marquez FRUIT GRADER OPERATOR-ARCHITECTURAL DRAFTER Work Phone: [facility] Comment on above: Neoplasm of skin Start: 02-17-2024 End: 02-17-2024 ambulatory REBEKAH MARQUEZ Not Available Start: 02-08-2024 End: 02-08-2024 ambulatory CHAITANYA WATKINS Facility:[facility] Start: 02-08-2024 End: 02-08-2024 Patient encounter procedure Chaitanya Watkins DPM Work Phone: Orthopaedics Comment on above: Onychomycosis (Prima ry Dx); Pain in toes of both feet Start: 12-27-2023 End: 12-27-2023 ambulatory PARADISE TYLER Not Available Start: 12-06-2023 End: 12-07-2023 ambulatory RAUL Uribe [facility] Start: 11-09-2023 Telephone encounter Floyd martin MD Work Phone: Cardiology Comment on above: Medication Problem; Patient Question Start: 11-04-2023 End: 11-04-2023 ambulatory [facility] Work Phone: Start: 11-04-2023 End: 11-04-2023 Patient encounter procedure [facility] [place] Work Phone: Start: 11-03-2023 End: 11-03-2023 ambulatory CHAITANYA WATKINS Facility:[facility] Start: 11-03-2023 End: 11-03-2023 Patient [...] Not Available Start: 08-05-2023 End: 08-05-2023 ambulatory CHAITANAY WATKINS Facility:[facility] Start: 08-05-2023 End: 08-05-2023 Patient encounter procedure Chaitanya Watkins DPM Work Phone: Orthopaedics Comment on above: Onychomycosis (Prima ry Dx); Pain in toes of both feet Start: 07-08-2023 Refill Barbara rabago FRUIT GRADER OPERATOR.BENJAMIN, DNP Work Phone: Cardiology Comment on above: Refill Request Start: 07-07-2023 Telephone encounter Barbara Warner APRN.ARCHITECTURAL DRAFTER, DNP Work Phone: Cardiology Comment on above: Medication Question Start: 06-30-2023 End: 06-30-2023 ambulatory Clara Cobian Other [employer] Other Start: 06-30-2023 Office outpatient vi sit 10 minutes Clara Cobian [facility] [place] Start: 06-04-2023 End: 06-04-2023 ambulatory FLOYD SPAULDING M.D. Facility:[facility] Start: 05-12-2023 ambulatory Cassie Bhatti [...] Start: 05-03-2023 End: 05-03-2023 ambulatory MP MARTINEZ Facility:[facility] Start: 05-03-2023 End: 05-03-2023 Patient encounter procedure MP MARTINEZ [facility] [place] Start: 04-22-2023 End: 04-22-2023 ambulatory Lisa Archibald Other [employer] Other Start: 04-22-2023 Office outpatient vi sit 15 minutes Lisa Archibald [facility] [place] Start: 04-11-2023 End: 04-11-2023 Emergency department patient visit Jh Johnson Marlene [facility] Start: 02-16-2023 End: 02-16-2023 Patient encounter procedure IVONNE GRANT [facility] Start: 01-27-2023 End: 01-27-2023 Patient encounter procedure Chaitanya Watkins DPM Work Phone: Orthopaedics Comment on above: Onychomycosis (Prima ry Dx); Pain in toes of both feet Start: 01-25-2023 Ruma Zhang MD Work Phone: Cardiology Start: 01-14-2023 End: 01-14-2023 Patient encounter procedure Barbara Warner APRN.ARCHITECTURAL DRAFTER, DNP Work Phone: [phone] Comment on above: Paroxysmal atrial fi brillation (HCC) (Primary Dx); Nonrheumatic mitral valve regurgitation; Nonrheumatic aortic valve stenosis; Essential hypertension; S/P MVR (mitral valve replacement) Start: 01-14-2023 End: 01-14-2023 ambulatory BARBARA WARNER Facility:[facility] Start: 01-06-2023 [facility]ulatory [facility] Start: 12-16-2022 End: 12-16-2022 Patient encounter procedure Mary Jo Chan Duynadyawyatt FRUIT GRADER OPERATOR.ARCHITECTURAL DRAFTER Work Phone: Cardiothoracic Comment on above: S/P [...] surgery center Chaitanya Watkins DPM Work Phone: [facility] Start: 12-03-2022 End: 12-03-2022 Admission to same [...] Work Phone: Case Management Comment on above: Respiratory Therapy Instructor - O ther (Care Continuum Advisor Assessment [...] by physician Savanna Zhang MD Work Phone: [facility] Comment on above: [...] 07-20-2022 Patient encounter procedure ISABELA W GALI [facility] Start: 04-22-2022 End: 04-22-2022 Patient encounter procedure Janel Lou [facility] Start: 04-22-2022 End: 04-22-2022 Well adult monitoring check done Janelliz Johnsonkeny [facility] Start: 04-21-2022 End: 04-21-2022 Patient encounter [...] encounter procedure DO Raul Dumont Work Phone: [facility] [address] Start: 12-25-2021 End: [...] above: Performed By: #### P SAD #### [facility] [address] [place] [address] Dr. Bryn Santo Start: 07-13-2018 Cystoscopy IVONNE ANN Ankle, left Janel Klonk Back Surgery Janel Klonk Colonoscopy Janel Klonk Extraction of cataract Ashle y Klonk Prostatectomy Janel Klonk Plan of Treatment Date Care Activity Detail Author Start: 06-29-2033 Urine microalbumin profile DTaP,Tdap,Td Vaccine (2 - Td or Tdap) [facility] Start: 12-16-2025 DIABETES SCREEN DIABETES SCREEN [facility] Start: 12-16-2025 Diabetes Screening Diabetes Screening [facility] Start: 12-08-2025 DIABETES SCREEN DIABETES SCREEN [facility] Start: 12-01-2025 DIABETES SCREEN DIABETES SCREEN [facility] Start: 04-15-2025 DIABETES SCREEN DIABETES SCREEN [facility] Start: 12-25-2024 End: 12-25-2024 Patient encounter procedure 12/25/2024 1:30 PM EDT Office Visit [facility] [address] [place] [id number] Paradise Tyler MD [address] [place] [address] [facility] Start: 08-10-2024 End: 08-10-2024 Patient encounter procedure 08/10/2024 9:45 AM EST Office Visit Orthopaedics [address] [place] [address] [place], DPM [address] [place] [address] 3 month nail care Orthopaedics Comment on above: 3 month nail care Start: 06-22-2024 End: 06-22-2024 Patient encounter procedure [facility] Comment on above: Arrived Start: 05-26-2024 End: 05-26-2024 Patient encounter procedure 05/26/2024 10:30 AM EST Office Visit Cardiology [address] [place], [place] [id number] Floyd Spaulding MD [address] [place], [place] [id number] 1 Year Follow uP Of Afib Cardiology Comment on above: 1 Year Follow uP Of Afib Start: 05-10-2024 End: 05-10-2024 Patient encounter procedure 05/10/2024 8:45 AM EST Office Visit Orthopaedics [address] [place] [address] [place] [address] [place] [address] 3 month nail care Orthopaedics Comment on above: 3 month nail care Start: 03-16-2024 End: 03-16-2024 Patient encounter procedure 03/16/2024 9:30 AM EDT Office Visit [facility] [address] [place] [id number] Rebekah Marquez, FRUIT GRADER OPERATOR-ARCHITECTURAL DRAFTER [address] [place] [address] [facility] Start: 02-17-2024 End: 02-17-2024 Patient encounter procedure 02/17/2024 10:20 AM EDT Office Visit [facility] [address] [place] [phone] Rebekah Marquez, FRUIT GRADER OPERATOR-ARCHITECTURAL DRAFTER [address] [place] [address] Arrived [facility] Comment on above: Arrived Start: 02-08-2024 End: 02-08-2024 Patient encounter procedure 02/08/2024 11:00 AM EDT Office Visit Orthopaedics [address] [place] [address] [place] [address] [place] [address] 3 month nail care Orthopaedics Comment on above: 3 month nail care Start: 02-06-2024 Covid-19 Vaccine ( season) Covid-19 Vaccine ( season) [facility] Start: 02-06-2024 Covid-19 Vaccine ( season) Covid-19 Vaccine ( season) [facility] Start: 02-06-2024 Influenza vaccination [facility] Start: 01-14-2024 DIABETES SCREEN DIABETES SCREEN [facility] Start: 11-03-2023 End: 11-03-2023 Patient encounter procedure 11/03/2023 8:45 AM EDT Office Visit Orthopaedics [address] [place] [address] Chaitanya Watkins DPM [address] [place] [address] 3 month nail care Orthopaedics Comment on above: 3 month nail care Start: 06-07-2023 Advance Directive Discussion Advance Directive Discussion [facility] Start: 06-07-2023 Behavioral Health Screening Behavioral Health Screening [facility] Start: 06-07-2023 Depression Assessment Depression Assessment [facility] Start: 02-05-2023 Covid-19 Vaccine () Covid-19 Vaccine () [facility] Start: 02-05-2023 Influenza vaccination [facility] Start: 10-01-2022 End: 04-02-2023 Echocardiography ECHO Cardiology Routine Nonrheumatic aortic valve stenosis Expected: 10/01/2022, Expires: 04/02/2023 [facility] Work Phone: Comment on above: Expected: 10/01/2022, Expires: Start: 06-07-2022 ADVANCE DIRECTIVE DISCUSSION ADVANCE DIRECTIVE DISCUSSION [facility] Start: 06-07-2022 DEPRESSION ASSESSMENT DEPRESSION ASSESSMENT [facility] Start: 02-05-2022 Influenza vaccination INFLUENZA (#1) [facility] Start: 06-07-2021 ADVANCE DIRECTIVE DISCUSSION ADVANCE DIRECTIVE DISCUSSION [facility] Start: 06-07-2021 DEPRESSION ASSESSMENT DEPRESSION ASSESSMENT [facility] Start: 04-01-2021 COVID-19 VACCINE (2 - Pfizer series) COVID-19 VACCINE (2 - Pfizer series) [facility] Start: 02-25-2021 COVID-19 VACCINE (2 - Pfizer 3-dose series) COVID-19 VACCINE (2 - Pfizer 3-dose series) [facility] Start: 02-25-2021 COVID-19 VACCINE (2 - Pfizer series) COVID-19 VACCINE (2 - Pfizer series) [facility] Start: 2014 RSV Vaccine (1 - 1-dose 75+ series) RSV Vaccine (1 - 1-dose 75+ series) [facility] Start: 2004 PNEUMOVAX AGE 65 AND OVER WITH 5YR LOOKBACK (#1) PNEUMOVAX AGE 65 AND OVER WITH 5YR LOOKBACK (#1) [facility] Start: 1999 RSV Vaccine (1 - 1-dose 60+ series) RSV Vaccine (1 - 1-dose 60+ series) [facility] Start: 1989 SHINGRIX VACCINE (1 of 2) SHINGRIX VACCINE (1 of 2) [facility] Start: 1958 Urine microalbumin profile [facility] Start: 1957 Depression Screening Depression Screening [facility] Start: 1945 PNEUMOCOCCAL: 65+ (1 - PCV) PNEUMOCOCCAL: 65+ (1 - PCV) [facility] End: 10-06-2023 ECG COMPLETE ECG COMPLETE ECG Routine Mitral regurgitation and aortic stenosis 1 Occurrences starting 10/05/2022 until 10/06/2023 [facility] Work Phone: Comment on above: 1 Occurrences starting 10/05/2022 until 10/06/2023 End: 01-15-2024 ECG COMPLETE ECG COMPLETE ECG Routine Paroxysmal atrial fibrillation (HCC) 1 Occurrences starting 01/14/2023 until 01/15/2024 [facility] Work Phone: Comment on above: 1 Occurrences starting 01/14/2023 until 01/15/2024 Ecg routine ecg w/le ast 12 lds w/i&r EKG WITH INTERPRETATION Cardiology Routine Paroxysmal atrial fibrillation (HCC) Ordered: 04/02/2022 [facility] Work Phone: Comment on above: Ordered: 04/02/2022 End: 10-06-2023 ECHO TRANSESOPHAGEAL ECHO TRANSESOPHAGEAL Cardiology Routine Mitral regurgitation and aortic stenosis 1 Occurrences starting 10/05/2022 until 10/06/2023 [facility] Work Phone: Comment on above: 1 Occurrences starting 10/05/2022 until 10/06/2023 Electrocardiogram EKG BIC Routin e 01/14/2023 1:15 PM EDT [facility] Immunizations Immunization Date Immunization Notes Care Provider Joellen porras 04-23-2022 influenza, injectabl e, quadrivalent, preservative free ISABELA TALBERT [facility] 04-23-2022 influenza virus vaccine, unspecified formulation Chaitanya Watkins DPM Work Phone: [facility] 02-04-2021 influenza virus vaccine, unspecified formulation Janel Klonk [facility] Comment on above: Result Comment: [facility] 02-04-2021 SARS-CoV-2 (COVID-19 ) mRNA BNT-162b2 vax Janel Klonk [facility] Comment on above: Result Comment: [facility] 06-07-2020 SARS-CoV-2 mRNA (tozinameran 5y-11y) vaccine Janel Klonk [facility] 03-12-2020 influenza, injectabl e, quadrivalent, preservative free Janel Klonk [facility] 03-15-2019 influenza virus vaccine, unspecified formulation Janel Klonk [facility] 06-03-2018 zoster vaccine recombinant Janel Klonk [facility] 03-04-2018 influenza virus vaccine, unspecified formulation Janel Klonk [facility] 03-04-2018 zoster vaccine recombinant Janel Klonk [facility] 03-07-2015 zoster vaccine recombinant Janel Klonk [facility] 06-07-2014 pneumococcal conjuga te vaccine, [address] [facility] 06-21-2006 pneumococcal polysaccharide vaccine, [address] [facility] 04-14-2002 pneumococcal polysaccharide vaccine, 23 valent Janel Klonk [facility] Payers Date Payer Category Payer [facility] [id number] 2016 Unknown [place] [id number] 2016-Present [phone] [address] [place] [address] Indemnity [id number] 2016 Unknown [id number] 2004 Medicare MEDICARE MEDICAR E A AND B [id number] 2004-Present [phone] [place] [address] Medicare [id number] 2004 Medicare [id number] 1959 Medicare [id number] 1959 Unknown [id number] 1939 Unknown [id number] [id number]. 2.593 1939 Unknown [id number] 2.16.840.1.251792.3.579. 2.593 1939 Unknown [id number] 2.16.840.1.766242.3.579. 2.182 1939 Unknown [id number] 2.16.840.1.048115.3.579. 2.727 1939 Unknown [id number] 2.16.840.1.080576.3.579. 2.727 1939 Unknown [id number] 2.16.840.1.251047.3.579. 2.727 1939 Unknown [id number] 2.16.840.1.178061.3.579. 2.727 1939 Unknown [id number] 2.16.840.1.263776.3.579. 2.1259 1939 Unknown [id number] 2.16.840.1.112873.3.579. 2.1259 1939 Unknown [id number] 2.16.840.1.864871.3.579. 2.1259 1939 Unknown [id number] 2.16.840.1.089777.3.579. 2.1259 Self-pay Self Pay [id number] Social History Date Type Detail Facility Start: 06-27-2021 End: 12-22-2022 Tobacco smoking status NHIS Never smoked tobacco [facility] Start: 07-08-2020 End: 06-04-2023 Alcohol intake Current non-drinker of alcohol (finding) [facility] Start: 1940 Sex Assigned At Male [facility] Start: 06-15-2014 End: 12-22-2022 Tobacco use and exposure Smokeless tobacco non-user [facility] Start: 02-24-2022 End: 03-06-2022 Exposure to SARS-CoV-2 (event) Unable to assess [facility] Start: 03-23-2022 End: 04-21-2022 Exposure to SARS-CoV-2 (event) Not sure [facility] Tobacco smoking status Never [facility] Start: 12-16-2022 End: 06-22-2024 Sex Assigned At Male [facility] Start: 12-09-2022 History SDOH Financial 5 [facility] Start: 12-09-2022 History SDOH Food Worry 1 [facility] Start: 12-09-2022 History SDOH Transpo rt Med 2 [facility] Start: 12-16-2022 End: 06-22-2024 History of Social function [facility] (I/We) worried wheth er (my/our) food would run out before (I/we) got money to buy more. Never true [facility] In the past 12 month s, was there a time when you were not able to pay the mortgage or rent on time? No [facility] Start: 06-18-2020 Gender identity Identifies as male gender (finding) [facility] Start: 06-18-2020 Sexual orientation Choose not to dis close [facility] Start: 12-27-2023 End: 06-22-2024 Alcoholic beverage intake Lifetime non-drinker (finding) [facility] Start: 1940 Sex assigned at Not on file [facility] Medical Equipment Procedure Code Equipment Code Equipment Original Text Equipment Identifier Dates Subtalar Negro Imp lant 9mm - [id number] Start: 02-05-2010 Band Cline Ancor e 35mm 35mm Annuloplasty Flexible [place] Chordal Guide - [id number] Start: 12-04-2022 Patch Thk.5mm Johnnie vine Pericardial 82r60vo Cardiovascular Resilience Durable - [id number] Start: 12-04-2022 Valve Joe-Mariano Perimount Magna Ease 25mm Low Profile Pericardial - [id number] Start: 12-04-2022 Functional Status Date Assessment Result Facility 02-22-2024 Functional Status N/A [facility] 05-03-2023 Functional Status N/A [facility] 04-11-2023 Functional Status N/A [facility] 02-16-2023 Functional Status N/A [facility] 07-20-2022 Functional Status N/A [facility] 04-22-2022 Functional Status N/A [facility] Clinical Notes 10-06-2021 to 06-22-2024 [facility] [...] Treatment: Wide excision by Dr. Mensah at [facility] 06/25/2020 Number of Lymph Nodes Checked: 0 [...] months skin exam documented in this encounter [facility] 05-10-2024 Note HNO ID: [id number] Author: CHAITANYA WATKINS DPM Service: ? Author [...] is current for today. Chaitanya Watkins D.P.M. [facility] 05-10-2024 History of Present illness Narrative [...] necessary and is current for today. Chaitanya aWtkins D.P.M. documented in this encounter [facility] 03-09-2024 Telephone encounter Note Pharmacy electronic RX [...] scheduled for: 05/26/2024 Kim Garcia MA 03/09/2024 [facility] 03-09-2024 Miscellaneous Notes Pharmacy electronic RX request [...] No Follow up scheduled for: 05/26/2024 Kim Garcai MA 03/09/2024 Prescription Refill Information The patient [...] 2024 1:58 PM documented in this encounter [facility] 03-09-2024 Telephone encounter Note Prescription Refill Information [...] Smooth Gaspar March 09, 2024 1:58 PM [facility] 02-23-2024 Note Patient Education Urology Benign Prostatic [...] Follow these instructions at home: ? Take yykw-kmc-gbickwe and prescription medicines only as told by [...] develop side effec (more content not included)... [facility] 02-17-2024 History of Present illness Narrative [...] month, follow up documented in this encounter [facility] 02-08-2024 Note HNO ID: [id number] Author: CHAITANYA WATKINS DPM Service: ? Author [...] is current for today. Chaitanya Watkins D.P.M. [facility] 02-08-2024 History of Present illness Narrative [...] Chaitanya Watkins D.P.M. documented in this encounter [facility] 11-09-2023 Telephone encounter Note Tried to reach patient by phone. Left message to return call to office Clara Hernandez RN [facility] 11-09-2023 Miscellaneous Notes Tried to reach patient by phone. Left message to return call to office Clara Hernandez RN November 09, 2023 [id number] Patient Name: Jordi Franco Contact Information: [phone] (home) [phone] (cell) Reason For Call: Medication Issue/Question: Xerelto Physician:Floyd Spaulding M.D. Additional Comments: Pt has parkinson's and is falling a lot. Please revisit Rx dosage roberta of falls. Please advise. Is it ok to leave detailed message on voice mail : Yes Requested Prescriptions No prescriptions requested or ordered in this encounter Radha Love documented in this encounter [facility] 11-09-2023 Telephone encounter Note November 09, 2023 [id number] Patient Name: Jordi Franco Contact Information: [phone] (home) [phone] (cell) Reason For Call: Medication Issue/Question: Xerelto Physician:Floyd Spaulding M.D. Additional Comments: Pt has parkinson's and is falling a lot. Please revisit Rx dosage roberta of falls. Please advise. Is it ok to leave detailed message on voice mail : Yes Requested Prescriptions No prescriptions requested or ordered in this encounter Radha Love [facility] 11-03-2023 Note HNO ID: [id number] Author: CHAITANYA WATKINS DPM Service: ? Author [...] is current for today. Chaitanya Watkins D.P.M. [facility] 11-03-2023 History of Present illness Narrative [...] Chaitanya Watkins D.P.M. documented in this encounter [facility] 10-19-2023 Telephone encounter Note Phoned patient and left detailed message that he can call the Lab. [facility] and gave number to call to order a duplicate pair of orthotics at cost. Natty hsieh MA [facility] 10-19-2023 Miscellaneous Notes Phoned patient and left [...] prescription is sent. documented in this encounter [facility] 10-19-2023 Telephone encounter Note -Pt's daughter (Sabiha) [...] call Pt if a prescription is sent. [facility] 08-05-2023 Note HNO ID: [id number] Author: CHAITANYA WATKINS DPM Service: ? Author [...] is current for today. Chaitanya Watkins D.P.M. [facility] 08-05-2023 History of Present illness Narrative [...] and is current for today. Chaitanya Watkins, Rahda.P.M. documented in this encounter [facility] 07-08-2023 Miscellaneous Notes Pended new prescription. Caro Montalvo RN Patient called states he takes 25 mg Metoprolol once daily. Received fax from [facility] pharmacy for patient's metoprolol. Fax shows different dose from medication list. Spoke with patient who is currently not home. He will have his check the bottle and get back to us. Will need new prescription for metoprolol (see notes on 01/22/2023 had elevated heart rate in the 90's - in the 70's afterwards). Caro Montalvo RN documented in this encounter [facility] 06-30-2023 Evaluation note Encounter Date Diagnosis [...] the ER for worsening symptoms or concerns [employer] Other 12-29-2023 NoteHNO ID: [id number] Author: Floyd Spaulding MD Service: ? Author Type: Physician Type: Progress Notes Filed: 06/04/2023 10:50 AM Note Text: [facility] [place] [facility] Department of Cardiovascular Medicine OUTPATIENT [...] cardiac surgery 12/04/2022 Cardiomegaly 09/22/2012 borderline Dyslipidemia CHINIK (hard of hearing) Hypertension Mitral regurgitation Pinched nerve in neck Spinal stenosis Stroke (HCC) 06/07/2007 TIA (transient ischemic attack) 06/07/2007 [facility] PAST SURGICAL HISTORY Procedure Laterality Date ATRIAL FIBRILLATION/FLUTTER ABLATION 2001,2003, 2012 - Radiofrequency ablation for atrial fibrillation BACK SURGERY HX Disc Surgery FOOT/TOES SURGERY PROC UNLISTED 02/05/2010 Performed by CHAITANYA WATKINS at [facility] GASTROCNEMIUS RECESSION 02/05/2010 Performed by CHAITANYA WATKINS at [facility] PAST SURGICAL HISTORY OF 2005 endoscopic [...] of Onset Ischemic Heart Disease Father 52 [place] other (cancer, lung) Father 56 yrs Asthma [...] BP 134/70 (BP S (more content not included)...[facility] 05-12-2023 History of Present illness Narrative* Chaitanya Watkins, ROSALVA - 05/12/2023 9:54 AM EST Images from the original note were not included. PRIMARY SERVICE: [facility] Podiat[facility] SUBJECTIVE: He presents today with his present requesting new custom foot orthotics since his current orthotics are from 2014. He does have some left ankle issues. Medical: PAST MEDICAL HISTORY Diagnosis Date Ankle instability left Aortic stenosis Asthma exercise Atrial fibrillation (HCC) BPH (benign prostatic hyperplasia) Bronchitis Cancer (HCC) basal cell Cardiac insufficiency following cardiac surgery 12/04/2022 Cardiomegaly 09/22/2012 borderline Dyslipidemia CHINIK (hard of hearing) Hypertension Mitral regurgitation Pinched [...] UNLISTED 02/05/2010 [facility]US RECESSION 02/05/2010 Performed by CHAITANYA WATKINS at [facility] PAST SURGICAL HISTORY OF 2005 endoscopic [...] of SERVICE: 9:54 AM documented in this encounterW[facility] History of Present illness Narrative* Magalys Shen Cast Tech - 05/12/2023 9:48 AM EST Patient was casted today for Custom Fitted Orthotics. BELA Corona documented in this encounterW[facility]12-[facility]-2023 History of Present illness Narrative* Casise Bhatti RT(R) - 05/12/2023 9:26 AM EST [...] 12, 2023 9:26 AM documented in this encounterW[facility]11-[facility] History of Present illness Narrative* Chaitanya Watkins [...] for today. Diego WilliamsonP.M. documented in this encounterW[facility]11-16-2023 Evaluation note* Encounter Date Diagnosis Assessment [...] and is agreeable with treatment plan [place] [employer] Other 11-05-2023 Hospital Discharge instructions Patient Education [...] balance is good. 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 Take ggof-xia-wshidhu and prescription medicines only as told by [...] provider. Document Revised: 04/28/2021 Document Reviewed: 04/28/2021 [employer] Patient Education 2022 Med[employer]. Follow Up Care 04/11/2023 09:38:14 With:Raul DUMONT Address: [address] [facility] [place] [address]- [phone] Business (1) When:04/14/2023 12:22:08 Comments:Return to the emergency room if your dizziness recurs or any new symptoms. [facility]09-12-2023 Hospital Discharge instructions Patient Education 02/16/2023 [...] urethra. Follow these instructions at home: Take pvat-bzg-nymjveu and prescription medicines only as told by [...] provider. Document Revised: 12/10/2021 Document Reviewed: 12/10/2021 [employer] Patient Education 2022 Medypal. Follow Up Care 12/29/2022 10:02:22 With:CHANTEL NORRIS, IVONNE Hernandez, URL Address: [address] [facility] [place] [address] When:Within 1 Year(s) Comments:w/MAGDA [facility] 08-23-2023 History of Present illness Narrative* [...] today. Chaitanya Watkins D.P.M. documented in this encounterWadsworth-[facility]08-21-2023 Miscellaneous Notes* Telephone Encounter - Savanna Zhang MD - 01/25/2023 12:25 PM EDT Patient called for input on HR 90s, sinus on ECG, no significant sxs, has follow up appt in feb. documented in this encounterWadsworth-R[facility]man [facility]08-10-2023 NoteHNO ID: [id number] Author: Barbara Warner APRN.ARCHITECTURAL DRAFTER, DNP Service: ? Author Type: Nurse Practitioner Type: Progress Notes Filed: 01/14/2023 1:50 PM Note Text: [facility] Department of Cardiovascular Medicine SECTION OF CLINICAL CARDIOLOGY OUTPATIENT VISIT DATE January 14, 2023 OUTPATIENT VISIT TYPE ESTABLISHED PRIMARY CARE PHYSICIAN: Raul Dumont [address] [facility] [address] [place] [address] REFERRING PHYSICIAN: Hugo Solano [address] [facility] [address] CHIEF COMPLAINT: Established Patient and Hospital Follow [...] cardiac surgery 12/04/2022 Cardiomegaly 09/22/2012 borderline Dyslipidemia CHINIK (hard of hearing) Hypertension Mitral regurgitation Pinched nerve in neck Spinal stenosis Stroke (HCC) 06/07/2007 TIA (transient ischemic attack) 06/07/2007 [facility] PAST SURGICAL HISTORY Procedure Laterality Date ATRIAL FIBRILLATION/FLUTTER ABLATION 2001,2003, 2012 - Radiofrequency ablation for atrial fibrillation BACK SURGERY HX Disc Surgery FOOT/TOES SURGERY PROC UNLISTED 02/05/2010 Performed by CHAITANYA WATKINS at [facility] 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 mag rrkpc-O0-jzhuyzpm rt xt 500-3,000-150 mg-unit-mg tab Take by [...] unsure of dosage Chew (more content not included)...[facility]08-10-2023 History of Present illness Narrative* Barbara Warner APRN.BENJAMIN, RAMÓN - 01/14/2023 1:13 PM EDT Images from the original note were not included. [facility] Department of Cardiovascular Medicine SECTION OF CLINICAL CARDIOLOGY OUTPATIENT VISIT DATE January 14, 2023 OUTPATIENT VISIT TYPE ESTABLISHED PRIMARY CARE PHYSICIAN: Raul Dumont [address] [place] [address] REFERRING PHYSICIAN: Hugo Solano [address] [facility] [address] CHIEF COMPLAINT: Established Patient and Hospital Follow [...] cardiac surgery 12/04/2022 Cardiomegaly 09/22/2012 borderline Dyslipidemia CHINIK (hard of hearing) Hypertension Mitral regurgitation Pinched nerve in neck Spinal stenosis Stroke (HCC) 06/07/2007 TIA (transient ischemic attack) 06/07/2007 [facility] PAST SURGICAL HISTORY Procedure Laterality Date ATRIAL FIBRILLATION/FLUTTER ABLATION 2001,2003, 2012 - Radiofrequency ablation for atrial fibrillation BACK SURGERY HX Disc Surgery FOOT/TOES SURGERY PROC UNLISTED 02/05/2010 Performed by CHAITANYA WATKINS at [facility] GASTROCNEMIUS RECESSION 02/05/2010 Performed by CHAITANYA WATKINS at [facility] PAST SURGICAL HISTORY OF 2006 endoscopic [...] of Onset Ischemic Heart Disease Father 52 [place] other (cancer, lung) Father 56 yrs Asthma [...] mouth once daily for 7 days. mag xkbhd-Y1-ifnyzgem rt xt 500-3,000-150 mg-unit-mg tab Take by [...] RV is adjacent to the inferior retrosternum. Seafood Specialist: PSCB Transcribe Date/Time: Dec 01 2022 5:15P [...] 60%, appears well compensated. Normal coronaries by [facility] 11/2022, angina free, stable. Paroxsymal atrial [...] others. CONTACT INFORMATION: Barbara Warner APRN.RAMÓN ALEXANDER [facility] I, [address] [place] [address] documented in this encounterWadsworth-[facility]08-02-2023 History of Present illness Narrative* Zari Cobb RN - 01/06/2023 10:12 AM EDT QOL Call Tracking Documentation Follow-Up Type: Phone Call Call Attempt: 1st Attempt Call Status: Patient Refused (Requested to be removed from QoL Dashboard) documented in this encounterWadsworth-R[facility]man [facility]07-12-2023 History of Present illness Narrative* Mary Jo Olvera APRN.CNP - 12/16/2022 1:00 PM EDT Images from the original note were not included. [facility] Department of Cardiovascular Medicine DEPARTMENT [...] cardiac surgery 12/04/2022 Cardiomegaly 09/22/2012 borderline Dyslipidemia CHINIK (hard of hearing) Hypertension Mitral regurgitation Pinched nerve in neck Spinal stenosis Stroke (HCC) 06/07/2007 TIA (transient ischemic attack) 06/07/2007 [facility] PAST SURGICAL HISTORY Procedure Laterality Date ATRIAL FIBRILLATION/FLUTTER ABLATION 2001,2003, 2012 - Radiofrequency ablation for atrial fibrillation BACK SURGERY HX Disc Surgery FOOT/TOES SURGERY PROC UNLISTED 02/05/2010 Performed by CHAITANYA WATKINS at [facility] GASTROCNEMIUS RECESSION 02/05/2010 Performed by CHAITANYA WATKINS at [facility] PAST SURGICAL HISTORY OF 2005 endoscopic [...] TAKE 1 TABLET BY MOUTH EVERY DAY [facility]-iweamayb rt xt 500-3,000-150 mg-unit-mg tab Take by [...] LEFT AXIS DEVIATION Vent. rate 80 BPM MI interval 204 ms QRS duration 98 ms [...] with PCP next week Follow up with process engineering technician in 4-6 weeks. Call CTS OPD with [...] reviewed Discussed wound care Mary Jo Olvera APRN.ARCHITECTURAL DRAFTER documented in this encounterWadsworth-R[facility]man [facility]07-12-2023 History of Present illness Narrative* Rhonda Jarrell [...] 16, 2022 12:53 PM documented in this encounterWadsworth-Rittman Hospital07-07-2023 Miscellaneous Notes* Telephone Encounter - Monique Vera RN - 12/11/2022 8:13 AM EDT [facility] Contact Center Inbound Phone Encounter DATE of SERVICE: 12/11/2022 TIME of SERVICE: 8:13 AM Status: Non-urgent, needs attention Service/Provider: Cardiac Surgery Brain Nieves M.D. Reason for call: Medication Issue/Question/Constipation Contact information: Sabiha (daughter) [phone] cell Resolution: Other [id number] Charge ARCHITECTURAL DRAFTER Jessica Rivera CNP Comments: Daughter calling [facility] [...] of Resolution 8:13 AM documented in this encounterWadsworth-Rittman Hospital07-06-2023 Miscellaneous Notes* Telephone Encounter - Mary Carmen Meier RN - 12/10/2022 11:56 AM EDT Called patient after recent discharge unable to leave voice message. documented in this encounterWadsworth-R[facility]man [facility]07-02-2023 History of Past illness Narrative* Problem [...] of this encounter (statuses as of 12/10/2022) [facility] History of Past illness Narrative* Problem [...] of this encounter (statuses as of 12/11/2022) [facility] of Past illness Narrative* Problem [...] of this encounter (statuses as of 12/17/2022) [facility] of Past illness Narrative* Problem [...] of this encounter (statuses as of 12/18/2022) [facility] of Past illness Narrative* Problem [...] of this encounter (statuses as of 01/06/2023) [facility] of Past illness Narrative* Problem [...] of this encounter (statuses as of 01/14/2023) [facility] of Past illness Narrative* Problem [...] of this encounter (statuses as of 01/25/2023) [facility] of Past illness Narrative* Problem [...] of this encounter (statuses as of 01/27/2023) [facility] of Past illness Narrative* Problem [...] of this encounter (statuses as of 05/05/2023) [facility] of Past illness Narrative* Problem [...] of this encounter (statuses as of 05/12/2023) [facility] of Past illness Narrative* Problem [...] of this encounter (statuses as of 05/12/2023) [facility] of Past illness Narrative* Problem [...] of this encounter (statuses as of 07/09/2023) [facility] illness Narrative* Problem [...] of this encounter (statuses as of 07/09/2023) [facility] illness Narrative* Problem [...] of this encounter (statuses as of 07/13/2023) [facility] illness Narrative* Problem [...] of this encounter (statuses as of 08/05/2023) [facility] of Present illness Narrative* Brain Nieves MD - 12/03/2022 1:51 PM EDT Images from the original note were not included. [facility] [place] DEPARTMENT OF CARDIAC SURGERY OUTPATIENT VISIT DATE December 03, 2022 OUTPATIENT VISIT SERVICE DATE: 12/03/2022 SERVICE TIME: 1:51 PM PCP: Raul Dumont [address] [place] [address] Referring Physician: Savanna Zhang [facility] [address] [facility] [address] Patient Type: New Visit to Determine Surgery: Yes HPI: Mr. Jordi Franoc is a 82 year old male seen [...] RV is adjacent to the inferior retrosternum. Seafood Specialist: PSCB Transcribe Date/Time: Dec 01 2022 5:15P [...] record Brain Nieves MD documented in this encounterWadsworth-Rittman Hospital06-29-2023 History of Present illness Narrative* Bindu Crisostomo [...] topic: Bactroban instructions given documented in this encounterWadsworth-Rittman Hospital06-29-2023 History of Present illness Narrative* Jg Reed [...] (HCC) basal cell Cardiomegaly 09/22/2012 borderline Dyslipidemia CHINIK (hard of hearing) Hypertension Mitral regurgitation Pinched nerve in neck Spinal stenosis Stroke (HCC) 06/07/2007 TIA (transient ischemic attack) 06/07/2007 [facility] PAST SURGICAL HISTORY Procedure Laterality Date ATRIAL FIBRILLATION/FLUTTER ABLATION 2001,2003 BACK SURGERY HX Disc Surgery FOOT/TOES SURGERY PROC UNLISTED 02/05/2010 Performed by CHAITANYA WATKINS at [facility] GASTROCNEMIUS RECESSION 02/05/2010 Performed by CHAITANYA WATKINS at [facility] PAST SURGICAL HISTORY OF endoscopic plantar fasciotomy PAST SURGICAL HISTORY OF 04/24/2013 ablation TUR CRYOSURG REM OF PROSTATE FAMILY HISTORY Problem Relation Age of Onset Ischemic Heart Disease Father 52 [place] other (cancer, lung) Father 56 yrs Asthma [...] 1 TABLET BY MOUTH EVERY DAY mag qngqz-C2-gictzhdv rt xt 500-3,000-150 mg-unit-mg tab Take by [...] RV is adjacent to the inferior retrosternum. Seafood Specialist: PSCB Transcribe Date/Time: Dec 01 2022 5:15P [...] 11:05 AM Pager/Contact #: documented in this encounterWadsworth-Rittman Hospital06-27-2023 Miscellaneous Notes* Telephone Encounter - Moraima [...] Instructions/Restrictions- instructed to be accompanied by adult tractor trailer truck driver at discharge Patient/Family Response Evaluation: Verbalizes understanding Follow Up Plan and Medication: As directed by physician Instruction/Supplemental Material Given: Cardiac catheterization instructions, procedure information, hospital information, hotel information. Instructed By Moraima Solis RN, RN. In Department of CARDIOLOGY. documented in this encounterWadsworth-Rittman Hospital06-27-2023 History of Present illness Narrative* RT Angelica(R) [...] 2022 TIME: 1:50 PM documented in this encounterWadsworth-Rittman Hospital06-19-2023 Miscellaneous Notes* Telephone Encounter - Maura Daigle RN - 11/23/2022 3:22 PM EDT CARE CONTINUUM ADVISOR ASSESSMENT PRIMARY CARE PHYSICIAN: Raul Dumont DO OR Surgery Date: 12/04/22 TCI Appointment: 12/03/22 Health Insurance: Medicare A&B, [place] Financial Resources: Employed: Works [employer] Primary Contact: Extended Emergency Contact Information Primary Emergency Contact: Layla Franco Address: [facility] [place] [address] Relation: Spouse Secondary Emergency Contact: Td Franco Address: [address] [place] [address] [address] [place] [address] Relation: Son Other Important Patient Contacts: None 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 Stated Goals: To improve my functional status and To return home to life as it was Science Interpreter needed?: No Home Phone Primary Contact: NA [...] surgery/appointments?: Yes, plan to drive w/family to [place] Medication Adherence: Do you have any concerns with your prescription medication?: No Who do you use for pharmacy?: [id number] [place] [address] - [address] [facility] [phone] [place] [address] Pre-Hospital Baseline Mental Status: Alert & Oriented Informant: Self and Spouse What is your current functional status?: Perform ADLs independently, uses a cane or walking stick as needed. Equipment: Do you currently use any equipment at home for your medical condition or to help you get around? Cane - Straight Walking stick Active Services/Needs: None Do you have a community center director contact through your insurance or WRAAA?: No Has the Patient Been in a Senior Care Facility in the Past 30 days? No FREEDOM OF CHOICE: Level of Care Discussed: Home Care, Senior Care Facility, Inpatient Rehab Facility, Jail Acute Care Hospital, and Cardiac rehab Financial Disclosure Provided: No Financial Disclaimer Provided: Yes, regarding pre-cert / insurance authorization Provider List: Home Care and Senior Care Facility Provider list within the patient's requested geographic area shared with the patient/family: Yes - Within [address] of [address] [place] [address] PAC Provider Choices Collected Home Health: 1. [facility] Home Health 2. [facility] 3. [facility] 4. [facility] Senior [facility]: [facility] Interventions: Discussed importance of active PCP relationship and follow up Discussed insurance risks, gaps, and programs available Advanced Directives Education Discussed reliable transportation needs for surgery and follow up appointments Discussed prescription medications adherence Maura Daigle RN documented in this encounterWadsworth-Rittman Hospital06-06-2023 Miscellaneous Notes* Telephone Encounter - Haley Valdez - 11/10/2022 3:53 PM EDT INN * Telephone Encounter - Qian Castillo - 11/10/2022 2:49 PM EDT Insurance Card(s) scanned into [employer] Please register/advise Thank You! documented in this encounterWadsworth-Rittman Hospital05-16-2023 History of Present illness Narrative* Chaitanya [...] today. Chaitanya Watkins D.P.M. documented in this encounterWadsworth-Rittman Hospital05-15-2023 Surgical operation note* Brief Op Note - Savanna Zhang MD - 10/19/2022 2:20 PM EDT Images from the original note were not included. BRIEF OPERATIVE / PROCEDURE NOTE LOG ID: [id number] PROCEDURE DATE: 10/19/2022 PROCEDURE START TIME: 1:35 PM PROCEDURE END TIME: 2:10 PM PROCEDURALIST(S) AND BINDER TECHNICIAN(S): Surgeon(s) and Role: * Savanna Zhang MD [...] + atleast mod Savanna Zhang MD Staff Senior Manager Asset Protection Arranger Assembler of Advanced Cardiac Imaging and Cardio-Oncology [facility] Pager: [phone] October 19, 2022 5:17 PM documented in this encounterWadsworth-Rittman Hospital05-01-2023 Miscellaneous Notes* Telephone Encounter - Sherrell [...] Coordinator Surgery Special Unit documented in this encounterWadsworth-Rittman Hospital05-01-2023 Instructions* Patient Instructions* Savanna Zhang MD - 10/05/2022 9:52 AM EDT You have 2 heart valve conditions --mitral regurgitation and aortic stenosis To better define these valve conditions, we will plan on CELIA procedure We will touch base after CELIA procedure documented in this encounterWadsworth-Rittman Hospital05-01-2023 History of Present illness Narrative* Savanna Zhang MD - 10/05/2022 9:30 AM EDT Images from the original note were not included. [facility] [place] [facility] Department of Cardiovascular Medicine SECTION OF CLINICAL CARDIOLOGY OUTPATIENT VISIT DATE October 05, 2022 OUTPATIENT VISIT TYPE ESTABLISHED PRIMARY CARE PHYSICIAN: Raul Dumont [address] [place] [address] CHIEF COMPLAINT: Cardiology Follow Up , Paroxysmal [...] (HCC) basal cell Cardiomegaly 09/22/12 borderline Dyslipidemia [place] (hard of hearing) Hypertension Pinched nerve in neck Spinal stenosis Stroke (HCC) 2007 TIA (transient ischemic attack) 2007 [facility] PAST SURGICAL HISTORY Procedure Laterality Date ATRIAL FIBRILLATION/FLUTTER ABLATION 2001,2003 FOOT/TOES SURGERY PROC UNLISTED 02/05/10 Performed by CHAITANYA WATKINS at [facility] GASTROCNEMIUS RECESSION 02/05/10 Performed by CHAITANYA WATKINS at [facility] PAST SURGICAL HISTORY OF endoscopic plantar fasciotomy PAST SURGICAL HISTORY OF 04/24/13 ablation TUR CRYOSURG REM OF PROSTATE SOCIAL HISTORY Social History Tobacco Use Smoking status: Never Smokeless tobacco: Never Substance Use Topics Alcohol use: No Drug use: No FAMILY HISTORY Problem Relation Age of Onset Ischemic Heart Disease Father 52 [place] other (cancer, lung) Father 56 yrs Asthma Sister Asthma Grandchild No Family History Other colon cancer No Family History Other colon polyps other (heart disease) Brother open heart surgery ALLERGIES: ALLERGIES Allergen Reactions Grass Pollen Unknown Nasonex [Mometasone] Other: See Comments Made him feel very hot and very jittery and shakey. Prednisone Mental Status Change Sulfa (Sulfonamide * Unknown MEDICATIONS: mag [id number] rt xt 500-3,000-150 mg-unit-mg tab^Take by mouth.^Disp: [...] Dyspnea in the Emergency Department (PRIDE) Study. [place] Journal of Cardiology 2005:95:948 to 954. Levon [...] time CONTACT INFORMATION: Savanna Zhang MD Staff Senior Manager Asset Protection Arranger Assembler of Advanced Cardiac Imaging and Cardio-Oncology [facility] Pager: [phone] October 05, 2022 documented in this encounterWadsworth-Rittman Hospital04-28-2023 Miscellaneous Notes* Telephone Encounter - Cristine Lobo [...] 02/15/2023 Cristine Diamond 10/02/2022 documented in this [facility]02-15-2023 History of Present illness Narrative* Chaitanya [...] today. Chaitanya Watkins D.P.M. documented in this encounterWadsworth-Rittman Hospital11-15-2022 History of Present illness Narrative* Chaitanya [...] today. Chaitanya Watkins, Radha.P.M. documented in this encounterWadsworth-Rittman Hospital10-27-2022 Instructions* Patient Instructions* Savanna Zhang MD [...] our follow up appointment documented in this encounterWadsworth-Rittman Hospital10-27-2022 History of Present illness Narrative* Savanna Zhang MD - 04/02/2022 8:27 AM EDT Images from the original note were not included. [facility] [place] [facility] Department of Cardiovascular Medicine SECTION OF CLINICAL CARDIOLOGY OUTPATIENT VISIT DATE April 02, 2022 OUTPATIENT VISIT TYPE NEW PRIMARY CARE PHYSICIAN: Raul Dumont [address] [place] [address] REFERRING PHYSICIAN: Aortic stenosis CHIEF COMPLAINT: Consult [...] (HCC) basal cell Cardiomegaly 09/22/12 borderline Dyslipidemia [place] (hard of hearing) Hypertension Pinched nerve in neck Spinal stenosis Stroke (HCC) 2007 TIA (transient ischemic attack) 2007 [facility] PAST SURGICAL HISTORY Procedure Laterality Date ATRIAL FIBRILLATION/FLUTTER ABLATION 2001,2003 FOOT/TOES SURGERY PROC UNLISTED 02/05/10 Performed by CHAITANYA WATKINS at [facility] GASTROCNEMIUS RECESSION 02/05/10 Performed by CHAITANYA WATKINS at [facility] PAST SURGICAL HISTORY OF endoscopic plantar fasciotomy PAST SURGICAL HISTORY OF 04/24/13 ablation TUR CRYOSURG REM OF PROSTATE SOCIAL HISTORY Social History Tobacco Use Smoking status: Never Smokeless tobacco: Never Substance Use Topics Alcohol use: No Drug use: No FAMILY HISTORY Problem Relation Age of Onset Ischemic Heart Disease Father 52 [place] other (cancer, lung) Father 56 yrs Asthma [...] (Preliminary result) Impression: SINUS RHYTHM WITH SHORT MI LEFT AXIS DEVIATION RSR' PATTERN IN V1 [...] Dyspnea in the Emergency Department (PRIDE) Study. [place] Journal of Cardiology 2005:95:948 to 954. Levon [...] visit CONTACT INFORMATION: Savanna Zhang MD Staff Senior Manager Asset Protection Arranger Assembler of Advanced Cardiac Imaging and Cardio-Oncology [facility] Pager: [phone] April 02, 2022 11:10 AM documented in this encounterWadsworth-Rittman Hospital09-30-2022 Miscellaneous Notes* Telephone Encounter - Clara [...] inthe Aorta? Jordi Franco documented in this encounterWadsworth-Rittman Hospital05-02-2022 Miscellaneous Notes* Telephone Encounter - Shelby [...] Shelby Dhaliwal MA 10/06/2021 [place] encounterSan [place] ClinicEvaluation + [place] [facility] Future Appointments Appointment Date:02/15/2023 10:45:00 AM Scheduled Provider:Oseml GARCIA MD [facility] Type:URO Office Visit Appointment Date:04/29/2023 11:00:00 AM Scheduled Provider: Location:[facility] Appointment Type:FM Medicare Wellness Subsequent [facility] Evaluation + Plan note Future Appointments Appointment Date:02/15/2023 10:45:00 AM Scheduled Provider:Osmel GARCIA MD [facility] Appointment Type:URO Office Visit Appointment Date:04/29/2023 11:00:00 AM Scheduled Provider: Location:[facility] Appointment Type:FM Medicare Wellness Subsequent Future Scheduled Tests Laboratory* Basic Metabolic Panel 07/20/22 * CBC w/ Auto Diff 07/20/22 * Thyroid Stimulating Hormone 07/20/22 [facility] Evaluation + Plan note Future Appointments Appointment Date:04/29/2023 11:00:00 AM Scheduled Provider: Location:[facility] Appointment Type:FM Medicare Wellness Subsequent Appointment Date:02/22/2024 10:00:00 AM Scheduled Provider:IVONNE GRANT PA-C Location:[facility] Appointment Type:URO Office Visit Diagnostic Tests Pending * PSA Total 02/16/23 Future Scheduled Tests Laboratory* Basic Metabolic Panel 07/20/22 * CBC w/ Auto Diff 07/20/22 * Thyroid Stimulating Hormone 07/20/22 [facility] evaluation + Plan note Future Appointments Appointment Date:05/03/2023 11:00:00 AM Scheduled Provider: Location:[facility] Appointment Type:FM Medicare Wellness Subsequent Appointment Date:02/22/2024 10:00:00 AM Scheduled Provider:IVONNE GRANT PA-C Location:[facility] Appointment Type:URO Office Visit Future Scheduled Tests Laboratory* Basic Metabolic Panel 07/20/22 * CBC w/ Auto Diff 07/20/22 * Thyroid Stimulating Hormone [facility] App[facility]ments Appointment Date:02/22/2024 10:00:00 AM Scheduled Provider:IVONNE GRANT PA-C Location[facility] Appointment Type:URO Office Visit Appointment Date:05/09/2024 11:00:00 AM Scheduled Provider: Location:[facility] Appointment Type: Medicare Wellness Subsequent Future Scheduled Tests Laboratory* Basic Metabolic Panel 07/20/22 * CBC w/ Auto Diff 07/20/22 * Thyroid Stimulating Hormone 07/20/22 [facility] [place] Evaluation noteNo assessment information available [facility] Work Phone: Evaluation note* Diagnosis Paroxysmal atrial fibrillation (HCC)- Primary Atrial fibrillation Nonrheumatic aortic valve stenosis Aortic valve disorders Primary hypertension Unspecified essential hypertension Hyperlipidemia with target LDL less than 70 Other and unspecified hyperlipidemia documented [place] this encounter [place] [facility]* Diagnosis Onychomycosis- Primary Dermatophytosis of nail Pain in toes of both feet [place] [facility] [place] [facility]* Diagnosis Onychomycosis- Primary Dermatophytosis of nail Pain in toes of both feet documented in this encounter [place] [facility]* Diagnosis Mitral regurgitation and aortic [...] valve disease unspecified documented [facility] this encounter [place] [facility]* Diagnosis Onychomycosis- Primary Dermatophytosis of [...] Mitral valve disorders documented [facility] this [facility] [place] [facility]* Diagnosis Surgery follow-up Follow-up examination, [...] both feet- Primary documented in this encounter [place] [facility]* Diagnosis 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 Enthesopathy of ankle and tarsus, unspecified documented in this encounter [facility]Evaluation [facility]* Diagnosis Pain Generalized pain documented in this encounter [facility]* Diagnosis Onychomycosis- Primary Dermatophytosis of nail Pain in toes of both feet documented in this encounter [facility]* Diagnosis Neoplasm of skin documented in this encounter [facility] HealthcareEvaluation note* Diagnosis Melanocytic nevi of [...] History back Surgical History heart valve repair [employer] Other Hospital course Narrative No data available for this section [facility] Hospital Discharge instructions No data available for this section [facility] Progress note No data available for this section [facility] Reason for referral (narrative)* Outpatient Procedure (Routine) - Authorized Specialty Diagnoses / Procedures Referred By Asuncion rucker Referred To Contact [facility] V[facility] Diagnoses Nonrheumatic aortic valve stenosis Procedures ECHO ECHO TTHRC R-T 2D W/WOM-MODE COMPL SPEC&COLR D Savanna Zhang MD [address] [facility] [address] [place] [address] [facility] [place] [address] Referral ID Status Reason Start Date Expiration Date Visits Requested Visits Authorized [id number] Authorized Auto-Generat ed Referral 10/01/2022 04/02/2023 1 1 [facility] for referral (narrative)* Outpatient Procedure (Routine) - Pending Review Specialty Diagnoses / Procedures Referred By Asuncion rucker Referred To Contact [facility] VASCULAR [facility] Diagnoses Mitral regurgitation and aortic stenosis Procedures ECHO TRANSESOPHAGEAL ECHO TRANSESOPHAG R-T 2D W/PRB IMG ACQUISJ Deng&R Savanna Zhang MD [address] [facility] [address] [place] [address] [facility] [address] [place] [address] Referral ID Status Reason Start Date Expiration Date Visits Requested Visits Authorized [id number] Pending Review Auto-Generat ed Referral 10/05/2022 10/05/2023 1 1 * Outpatient Procedure (Routine) - Pending Review Specialty Diagnoses / Procedures Referred By Contac t Referred To Contact [facility] Diagnoses Mitral regurgitation and aortic stenosis Procedures ECG COMPLETE ECG ROUTINE ECG W/LEAST 12 LDS W/I&R Savanna Zhang MD [address] [facility] [address] [place] [address] [facility] [address] [place] [id number] Referral ID Status Reason Start Date Expiration Date Visits Requested Visits Authorized [id number] Pending Review Auto-Generat ed Referral 10/05/2022 10/05/2023 1 1 [facility] for referral (narrative)* Outpatient Procedure (Routine) - Closed Specialty Diagnoses / Procedures Referred By Contac t Referred To Contact [facility] VASC[facility] Diagnoses Paroxysmal atrial fibrillation (HCC) Procedures ECG COMPLETE ECG ROUTINE ECG W/LEAST 12 LDS W/I&R Barbara Warner APRN.CNP, DNP [address] [facility] [address] [place] [address] [facility] [address] [place] [address] Referral ID Status Reason Start Date Expiration Date V isits Requested Visits Authorized [id number] Closed Auto-Generate d Referral 01/14/2023 01/14/2024 1 1 [facility] for referral (narrative)* Diagnostic Procedure Only (Routine) - Closed Specialty Diagnoses / Procedures Referred By Asuncion t Referred To Contact XR IMAGING Diagnoses Pain Procedures XR FOOT GENERAL 3V AP/LAT/OBL LEFT RADEX FOOT COMPLETE MINIMUM 3 VIEWS Chaitanya Watkins DPM [address] [place] [address] [place] [address] Referral ID Status Reason Start Date Expiration Date V isits Requested Visits Authorized [id number] Closed Auto-Generate d Referral 05/10/2023 06/08/2024 1 1 [facility] for visit Narrative* Diagnostic Procedure Only (Routine) - Closed Specialty Diagnoses / Procedures Referred By Asuncion rucker Referred To Contact XR IMAGING Diagnoses Pain Procedures XR FOOT GENERAL 3V AP/LAT/OBL LEFT RADEX FOOT COMPLETE MINIMUM 3 VIEWS Chaitanya Watkins DPM [address] [place] [address] [place] [address] Referral ID Status Reason Start Date Expiration Date V isits Requested Visits Authorized [id number] Closed Auto-Generate d Referral 05/10/2023 06/08/2024 1 1 [facility] Summary Purpose Family History No Family History Records Found Relationship Condition Age at Onset Recorded Date/T sarah brother Unknown father Malignant neoplasm Unknown Unknown Not Specified Unknown sister Unknown Advance Directives No Advanced Directives Records FoundDocuments on File Type Date 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 Advance Directive(s) 06/25/2020 10:37 AM [...] CT ANGIOGRAPHY CHEST W/CONTRAST/NONCONTRAST Brain Nieves MD [address] [place] [address] Ct Imaging Referral ID Status Reason Start Date Expiration Date V isits Requested Visits Authorized [id number] Closed Auto-Generate d Referral 11/16/2022 12/16/2023 1 1 Specialty Diagnoses / Procedures Referred By Contac t Referred To Contact Cardiothoracic Surgery Diagnoses Mitral regurgitation and aortic stenosis Procedures CONSULT TO CARDIOTHORACIC SURGERY Savanna Zhang MD [address] [place] [address] Brain Nieves MD [address] [facility] [place] [address] Referral ID Status Reason Start Date Expiration Date Visits Requested Visits Authorized [id number] Ref Not Required PCP Requested Referral 11/10/2022 11/10/2023 1 1 Additional Source Comments (unrecognized sect ion and content) No Status Records FoundNo Status Records FoundNo Status Records FoundNo Status Records FoundNo Status Records FoundNo Status Records FoundNo Status Records FoundNo Status Records Found INFORMATION SOURCE (unrecogn ized section and content) DATE CREATED AUTHOR 08/03/2019 [facility] DATE CREATED AUTHOR AUTHOR'S ORGANIZ ATION 01/03/2022 [facility] DATE CREATED AUTHOR AUTHOR'S ORGANIZ ATION 01/07/2022 [facility] DATE CREATED AUTHOR AUTHOR'S ORGANIZ ATION 12/03/2023 [facility] DATE CREATED AUTHOR AUTHOR'S ORGANIZ ATION [facility]2023 [facility] DATE CREATED AUTHOR AUTHOR'S ORGANIZ ATION 02/26/[address] [facility] DATE CREATED AUTHOR AUTHOR'S ORGANIZ ATION 05/12/2024 [facility] DATE CREATED AUTHOR AUTHOR'S ORGANIZ ATION 06/25/2024 [facility] dical Specialists EPIC Source Comments (unrecognize d section and content) In the event this informatio n is protected by the Federal Confidentiality of Alcohol and Drug Abuse Patient Records regulations: The Federal rules restrict any use of the information to criminally investigate or prosecute any alcohol or drug abuse patient.[facility]itt[facility] HospitalIn the event this information is protected by the Federal Confidentiality of Alcohol and Drug Abuse Patient Records regulations: The Federal rules restrict any use of the information to criminally investigate or prosecute any alcohol or drug abuse patient.[facility]itt[facility] HospitalIn the event this information is protected by the Federal Confidentiality of Alcohol and Drug Abuse Patient Records regulations: The Federal rules restrict any use of the information to criminally investigate or prosecute any alcohol or drug abuse patient.[facility] HospitalIn the event this information is protected by the Federal Confidentiality of Alcohol and Drug Abuse Patient Records regulations: The Federal rules restrict any use of the information to criminally investigate or prosecute any alcohol or drug abuse patient.[facility] HospitalIn the event this information is protected by the Federal Confidentiality of Alcohol and Drug Abuse Patient Records regulations: The Federal rules restrict any use of the information to criminally investigate or prosecute any alcohol or drug abuse patient.[facility] HospitalIn the event this information is protected by the Federal Confidentiality of Alcohol and Drug Abuse Patient Records regulations: The Federal rules restrict any use of the information to criminally investigate or prosecute any alcohol or drug abuse patient.[facility] HospitalIn the event this information is protected by the Federal Confidentiality of Alcohol and Drug Abuse Patient Records regulations: The Federal rules restrict any use of the information to criminally investigate or prosecute any alcohol or drug abuse patient.[facility] HospitalIn the event this information is protected by the Federal Confidentiality of Alcohol and Drug Abuse Patient Records regulations: The Federal rules restrict any use of the information to criminally investigate or prosecute any alcohol or drug abuse patient.[facility] HospitalIn the event this information is protected by the Federal Confidentiality of Alcohol and Drug Abuse Patient Records regulations: The Federal rules restrict any use of the information to criminally investigate or prosecute any alcohol or drug abuse patient.[facility] HospitalIn the event this information is protected by the Federal Confidentiality of Alcohol and Drug Abuse Patient Records regulations: The Federal rules restrict any use of the information to criminally investigate or prosecute any alcohol or drug abuse patient.[facility] HospitalIn the event this information is protected by the Federal Confidentiality of Alcohol and Drug Abuse Patient Records regulations: The Federal rules restrict any use of the information to criminally investigate or prosecute any alcohol or drug abuse patient.[facility] HospitalIn the event this information is protected by the Federal Confidentiality of Alcohol and Drug Abuse Patient Records regulations: The Federal rules restrict any use of the information to criminally investigate or prosecute any alcohol or drug abuse patient.[facility] HospitalIn the event this information is protected by the Federal Confidentiality of Alcohol and Drug Abuse Patient Records regulations: The Federal rules restrict any use of the information to criminally investigate or prosecute any alcohol or drug abuse patient.[facility] HospitalIn the event this information is protected by the Federal Confidentiality of Alcohol and Drug Abuse Patient Records regulations: The Federal rules restrict any use of the information to criminally investigate or prosecute any alcohol or drug abuse patient.[facility] HospitalIn the event this information is protected by the Federal Confidentiality of Alcohol and Drug Abuse Patient Records regulations: The Federal rules restrict any use of the information to criminally investigate or prosecute any alcohol or drug abuse patient.[facility] HospitalIn the event this information is protected by the Federal Confidentiality of Alcohol and Drug Abuse Patient Records regulations: The Federal rules restrict any use of the information to criminally investigate or prosecute any alcohol or drug abuse patient.[facility] HospitalIn the event this information is protected by the Federal Confidentiality of Alcohol and Drug Abuse Patient Records regulations: The Federal rules restrict any use of the information to criminally investigate or prosecute any alcohol or drug abuse patient.[facility] HospitalIn the event this information is protected by the Federal Confidentiality of Alcohol and Drug Abuse Patient Records regulations: The Federal rules restrict any use of the information to criminally investigate or prosecute any alcohol or drug abuse patient.[facility] HospitalIn the event this information is protected by the Federal Confidentiality of Alcohol and Drug Abuse Patient Records regulations: The Federal rules restrict any use of the information to criminally investigate or prosecute any alcohol or drug abuse patient.[facility] HospitalIn the event this information is protected by the Federal Confidentiality of Alcohol and Drug Abuse Patient Records regulations: The Federal rules restrict any use of the information to criminally investigate or prosecute any alcohol or drug abuse patient.[facility] HospitalIn the event this information is protected by the Federal Confidentiality of Alcohol and Drug Abuse Patient Records regulations: The Federal rules restrict any use of the information to criminally investigate or prosecute any alcohol or drug abuse patient.[facility] HospitalIn the event this information is protected by the Federal Confidentiality of Alcohol and Drug Abuse Patient Records regulations: The Federal rules restrict any use of the information to criminally investigate or prosecute any alcohol or drug abuse patient.[facility] HospitalIn the event this information is protected by the Federal Confidentiality of Alcohol and Drug Abuse Patient Records regulations: The Federal rules restrict any use of the information to criminally investigate or prosecute any alcohol or drug abuse patient.[facility] HospitalIn the event this information is protected by the Federal Confidentiality of Alcohol and Drug Abuse Patient Records regulations: The Federal rules restrict any use of the information to criminally investigate or prosecute any alcohol or drug abuse patient.[facility] HospitalIn the event this information is protected by the Federal Confidentiality of Alcohol and Drug Abuse Patient Records regulations: The Federal rules restrict any use of the information to criminally investigate or prosecute any alcohol or drug abuse patient.[facility] HospitalIn the event this information is protected by the Federal Confidentiality of Alcohol and Drug Abuse Patient Records regulations: The Federal rules restrict any use of the information to criminally investigate or prosecute any alcohol or drug abuse patient.[facility] HospitalIn the event this information is protected by the Federal Confidentiality of Alcohol and Drug Abuse Patient Records regulations: The Federal rules restrict any use of the information to criminally investigate or prosecute any alcohol or drug abuse patient.[facility] HospitalIn the event this information is protected by the Federal Confidentiality of Alcohol and Drug Abuse Patient Records regulations: The Federal rules restrict any use of the information to criminally investigate or prosecute any alcohol or drug abuse patient.[facility] HospitalIn the event this information is protected by the Federal Confidentiality of Alcohol and Drug Abuse Patient Records regulations: The Federal rules restrict any use of the information to criminally investigate or prosecute any alcohol or drug abuse patient.[facility] HospitalIn the event this information is protected by the Federal Confidentiality of Alcohol and Drug Abuse Patient Records regulations: The Federal rules restrict any use of the information to criminally investigate or prosecute any alcohol or drug abuse patient.[facility] HospitalIn the event this information is protected by the Federal Confidentiality of Alcohol and Drug Abuse Patient Records regulations: The Federal rules restrict any use of the information to criminally investigate or prosecute any alcohol or drug abuse patient.[facility] HospitalIn the event this information is protected by the Federal Confidentiality of Alcohol and Drug Abuse Patient Records regulations: The Federal rules restrict any use of the information to criminally investigate or prosecute any alcohol or drug abuse patient.[facility] HospitalIn the event this information is protected by the Federal Confidentiality of Alcohol and Drug Abuse Patient Records regulations: The Federal rules restrict any use of the information to criminally investigate or prosecute any alcohol or drug abuse patient.[facility] HospitalIn the event this information is protected by the Federal Confidentiality of Alcohol and Drug Abuse Patient Records regulations: The Federal rules restrict any use of the information to criminally investigate or prosecute any alcohol or drug abuse patient.[facility] HospitalIn the event this information is protected [...] or prosecute any alcohol or drug abuse patient.[facility] HospitalIn the event this information is protected by the Federal Confidentiality of Alcohol and Drug Abuse Patient Records regulations: The Federal rules restrict any use of the information to criminally investigate or prosecute any alcohol or drug abuse patient.[facility] HospitalIn the event this information is protected by the Federal Confidentiality of Alcohol and Drug Abuse Patient Records regulations: The Federal rules restrict any use of the information to criminally investigate or prosecute any alcohol or drug abuse patient.[facility] HospitalIn the event this information is protected by the Federal Confidentiality of Alcohol and Drug Abuse Patient Records regulations: The Federal rules restrict any use of the information to criminally investigate or prosecute any alcohol or drug abuse patient.[facility] HospitalIn the event this information is protected by the Federal Confidentiality of Alcohol and Drug Abuse Patient Records regulations: The Federal rules restrict any use of the information to criminally investigate or prosecute any alcohol or drug abuse patient.[facility] HospitalIn the event this information is protected by the Federal Confidentiality of Alcohol and Drug Abuse Patient Records regulations: The Federal rules restrict any use of the information to criminally investigate or prosecute any alcohol or drug abuse patient.[facility] HospitalIn the event this information is protected by the Federal Confidentiality of Alcohol and Drug Abuse Patient Records regulations: The Federal rules restrict any use of the information to criminally investigate or prosecute any alcohol or drug abuse patient.[facility] Reason for Visit (unrecogniz ed section and content) Reason Comments Refill Request Reason Comments Results Reason Comments Consult Dr. 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 Assessment Reason Comments Education Of Patient/family Specialty Diagnoses / Procedures Referred By Contac t Referred To Contact CT IMAGING Diagnoses Encounter for preprocedural cardiovascular examination Pre-operative cardiovascular examination Aortic valve disorder Paroxysmal atrial fibrillation (HCC) Mitral valve disorder Procedures CTA CHEST (GATED) W IVCON CT ANGIOGRAPHY CHEST W/CONTRAST/NONCONTRAST Brain Nieves MD [id number] Imaging Referral ID Status Reason Start Date Expiration Date V isits Requested Visits Authorized [id number] Closed Auto-Generate d Referral 11/16/2022 12/16/2023 1 [...] ECG W/LEAST 12 LDS W/I&R Barbara Warner APRN.ARCHITECTURAL DRAFTER, DNP [address] [facility] [address] [id number] [facility] [address] [place] [address] Referral ID Status Reason Start Date Expiration Date V isits Requested Visits Authorized [id number] Closed Auto-Generate d Referral 01/14/2023 01/14/2024 1 [...] November 04, 2023 End: November 04, 2023 Surgical Instruments Inspector Relationship Specialty Start Date End Date Raul Dumont DO PCP - General 01/22/10 Floyd Spaulding MD [address] [address] Primary Staff Physician Cardiology 08/23/18 Team Status: Inactive Member Role Status Dates Raul Dumont DO Primary Care Provider Active Raghav Hubbard MD Attending Provider Active Surgical Instruments Inspector Relationship Specialty Start Date End Date Raul Dumont DO PCP - General 01/22/10 Floyd Spaulding MD [address] [address] Primary Staff Physician Cardiology 08/23/18 Surgical Instruments Inspector Relationship Specialty Start Date End Date Raul Dumont DO PCP - General 01/22/10 Floyd Spaulding MD [address] [address] Primary Staff Physician Cardiology 08/23/18 Surgical Instruments Inspector Relationship Specialty Start Date End Date Raul Dumont DO PCP - General 01/22/10 Floyd Spaulding MD [address] [address] Primary Staff Physician Cardiology 08/23/18 Surgical Instruments Inspector Relationship Specialty Start Date End Date Raul Dumont DO PCP - General 01/22/10 Floyd Spaulding MD [address] [address] Primary Staff Physician Cardiology 08/23/18 Surgical Instruments Inspector Relationship Specialty Start Date End Date Julia, Raul S, DO PCP - General 01/22/10 Floyd Spaulding MD [address] [place] [address] Primary Staff Physician Cardiology 08/23/18 Savanna Zhang MD [address] [address] Primary Staff Physician Cardiology 10/05/22 Surgical Instruments Inspector Relationship Specialty Start Date End Date Raul Dumont, DO PCP - General 01/22/10 Floyd Spaulding MD [address] [address] Primary Staff Physician Cardiology 08/23/18 Savanna Zhang MD [address] [address] Primary Staff Physician Cardiology 10/05/22 Surgical Instruments Inspector Relationship Specialty Start Date End Date Raul Dumont, DO PCP - General 01/22/10 Floyd Spaulding MD [address] [address] Primary Staff Physician Cardiology 08/23/18 Savanna Zhang MD [address] [address] Primary Staff Physician Cardiology 10/05/22 Surgical Instruments Inspector Relationship Specialty Start Date End Date Raul Dumont, DO PCP - General 01/22/10 Floyd Spaulding MD [address] [address] Primary Staff Physician Cardiology 08/23/18 Savanna Zhang MD [address] [place] [address] Primary Staff Physician Cardiology 10/05/22 Surgical Instruments Inspector Relationship Specialty Start Date End Date Raul Dumont DO PCP - General 01/22/10 Floyd Spaulding MD [address] [place] [address] Primary Staff Physician Cardiology 08/23/18 Savanna Zhang MD [address] [place] [address] Primary Staff Physician Cardiology 10/05/22 Surgical Instruments Inspector Relationship Specialty Start Date End Date Raul Dumont DO PCP - General 01/22/10 Floyd Spaulding MD [address] [place] [address] Primary Staff Physician Cardiology 08/23/18 Savanna Zhang MD [address] [address] Primary Staff Physician Cardiology 10/05/22 Brain Nieves MD [address] [place], [place] [id number] Surgeon Cardiac Surg 11/10/22 Surgical Instruments Inspector Relationship Specialty Start Date End Date Raul Dumont, DO PCP - General 01/22/10 Floyd Spaulding MD [address] [place] [address] Primary Staff Physician Cardiology 08/23/18 Savanna Zhang MD [address] [place] [address] Primary Staff Physician Cardiology 10/05/22 Brain Nieves MD [address] [place] [address] Surgeon Cardiac Surg 11/10/22 Surgical Instruments Inspector Relationship Specialty Start Date End Date Navin Dumontory DO Jojo PCP - General 01/22/10 Floyd Spaulding MD [address] [facility] [address] [place] [address] Primary Staff Physician Cardiology 08/23/18 Savanna Zhang MD [address] [facility] [address] [place] [address] Primary Staff Physician Cardiology 10/05/22 Brain Nieves MD [address] [place] [address] Surgeon Cardiac Surg 11/10/22 Hay Jovel DO [address] [place] [address] Cardiology 11/17/22 Surgical Instruments Inspector Relationship Specialty Start Date End Date Julia Raul DO Jojo PCP - General 01/22/10 Floyd Spaulding MD [address] [address] Primary Staff Physician Cardiology 08/23/18 Savanna Zhang MD [address] [facility] [address] [place] [address] Primary Staff Physician Cardiology 10/05/22 Brain Nieves MD [address] [place] [address] Surgeon Cardiac Surg 11/10/22 Hay Jovel DO [address] [place] [address] Cardiology 11/17/22 Surgical Instruments Inspector Relationship Specialty Start Date End Date Raul Dumont DO PCP - General 01/22/10 Floyd Spaulding MD [address] [address] Primary Staff Physician Cardiology 08/23/18 Savanna Zhang MD [address] [address] Primary Staff Physician Cardiology 10/05/22 Brain Nieves MD [address] [place] [address] Surgeon Cardiac Surg 11/10/22 Hay Jovel DO [address] [place] [address] Cardiology 11/17/22 Surgical Instruments Inspector Relationship Specialty Start Date End Date Raul Dumont DO PCP - General 01/22/10 Floyd Spaulding MD [address] [address] Primary Staff Physician Cardiology 08/23/18 Savanna Zhang MD [address] [address] Primary Staff Physician Cardiology 10/05/22 Brain Nieves MD [address] [place] [address] Surgeon Cardiac Surg 11/10/22 Hay Jovel DO [address] [place] [address] Cardiology 11/17/22 Surgical Instruments Inspector Relationship Specialty Start Date End Date Raul Dumont DO PCP - General 01/22/10 Floyd Spaulding MD [address] [facility] [address] [place] [address] Primary Staff Physician Cardiology 08/23/18 Savanna Zhang MD [address] [facility] [address] [place] [address] Primary Staff Physician Cardiology 10/05/22 Brain Nieves MD [address] [place] [address] Surgeon Cardiac Surg 11/10/22 Hay Jovel DO [address] [place] [address] Cardiology 11/17/22 Surgical Instruments Inspector Relationship Specialty Start Date End Date Raul Dumont DO PCP - General 01/22/10 Floyd Spaulding MD [address] [address] Primary Staff Physician Cardiology 08/23/18 Savanna Zhang MD [address] [facility] [address] [place] [address] Primary Staff Physician Cardiology 10/05/22 Brain Nieves MD [address] [place] [address] Surgeon Cardiac Surg 11/10/22 Hay Jovel DO [address] [place] [address] Cardiology 11/17/22 Surgical Instruments Inspector Relationship Specialty Start Date End Date Raul Dumont DO PCP - General 01/22/10 Floyd Spaulding MD [address] [address] Primary Staff Physician Cardiology 08/23/18 Savanna Zhang MD [address] [address] Primary Staff Physician Cardiology 10/05/22 Brain Nieves MD [address] [place] [address] Surgeon Cardiac Surg 11/10/22 Hay Jovel DO [address] [place] [address] Cardiology 11/17/22 Surgical Instruments Inspector Relationship Specialty Start Date End Date Raul Dumont DO PCP - General 01/22/10 Floyd Spaulding MD [address] [address] Primary Staff Physician Cardiology 08/23/18 Savanna Zhang MD [facility] [address] [address] Primary Staff Physician Cardiology 10/05/22 Brain Nieves MD [address] [place] [address] Surgeon Cardiac Surg 11/10/22 Hay Jovel DO [address] [place] [address] Cardiology 11/17/22 Surgical Instruments Inspector Relationship Specialty Start Date End Date Raul Dumont DO PCP - General 01/22/10 Floyd Spaulding MD [address] [place] [address] Primary Staff Physician Cardiology 08/23/18 Savanna Zhang MD [address] [place] [address] Primary Staff Physician Cardiology 10/05/22 Brain Nieves MD [address] [place] [address] Surgeon Cardiac Surg 11/10/22 Hay Jovel DO [address] [place] [address] Cardiology 11/17/22 Surgical Instruments Inspector Relationship Specialty Start Date End Date Raul Dumont DO PCP - General 01/22/10 Floyd Spaulding MD [address] [facility] [address] [place] [address] Primary Staff Physician Cardiology 08/23/18 Savanna Zhang MD [address] [facility] [address] [place] [address] Primary Staff Physician Cardiology 10/05/22 Brain Nieves MD [address] [place] [address] Surgeon Cardiac Surg 11/10/22 Hay Jovel DO [address] [place] [address] Cardiology 11/17/22 Surgical Instruments Inspector Relationship Specialty Start Date End Date Raul Dumont DO PCP - General 01/22/10 Floyd Spaulding MD [address] [address] Primary Staff Physician Cardiology 08/23/18 Savanna Zhang MD [facility] [address] [address] Primary Staff Physician Cardiology 10/05/22 Brain Nieves MD [address] [place] [address] Surgeon Cardiac Surg 11/10/22 Hay Jovel DO [address] [place] [address] Cardiology 11/17/22 Surgical Instruments Inspector Relationship Specialty Start Date End Date Julia Raul Uribe, DO PCP - General 01/22/10 Floyd Spaulding MD [address] [address] Primary Staff Physician Cardiology 08/23/18 Savanna Zhang MD [address] [address] Primary Staff Physician Cardiology 10/05/22 Brain Nieves MD [address] [place] [address] Surgeon Cardiac Surg 11/10/22 Hay Jovel DO [address] [place] [address] Cardiology 11/17/22 Surgical Instruments Inspector Relationship Specialty Start Date End Date Navin Dumontsam UribeDO PCP - General 01/22/10 Floyd Spaulding MD [address] [facility] [address] [place] [address] Primary Staff Physician Cardiology 08/23/18 Savanna Zhang MD [address] [facility] [address] [place] [address] Primary Staff Physician Cardiology 10/05/22 Brain Nieves MD [address] [place] [address] Surgeon Cardiac Surg 11/10/22 Hay Jovel DO [address] [place] [address] Cardiology 11/17/22 Surgical Instruments Inspector Relationship Specialty Start Date End Date Raul Dumont DO PCP - General 01/22/10 Floyd Spaulding MD [address] [address] Primary Staff Physician Cardiology 08/23/18 Savanna Zhang MD [address] [facility] [address] [place] [address] Primary Staff Physician Cardiology 10/05/22 Brain Nieves MD [address] [place] [address] Surgeon Cardiac Surg 11/10/22 Hay Jovel DO [address] [place] [address] Cardiology 11/17/22 Surgical Instruments Inspector Relationship Specialty Start Date End Date Raul Dumont DO PCP - General 01/22/10 Floyd Spaulding MD [address] [place] [address] Primary Staff Physician Cardiology 08/23/18 Savanna Zhang MD [address] [facility] [address] [place] [address] Primary Staff Physician Cardiology 10/05/22 Brain Nieves MD [address] [place] [address] Surgeon Cardiac Surg 11/10/22 Hay Jovel DO [address] [place] [address] Cardiology 11/17/22 Surgical Instruments Inspector Relationship Specialty Start Date End Date Raul Dumont DO PCP - General 01/22/10 Floyd Spaulding MD [address] [place] [address] Primary Staff Physician Cardiology 08/23/18 Savanna Zhang MD [address] [place] [address] Primary Staff Physician Cardiology 10/05/22 Brain Nieves MD [address] [place] [address] Surgeon Cardiac Surg 11/10/22 Hay Jovel DO [address] [place] [address] Cardiology 11/17/22 Surgical Instruments Inspector Relationship Specialty Start Date End Date Raul Dumont DO PCP - General 01/22/10 Floyd Spaulding MD [address] [facility], [address] [place] [address] Primary Staff Physician Cardiology 08/23/18 Savanna Zhang MD [address] [facility], [address] [place] [address] Primary Staff Physician Cardiology 10/05/22 Brain Nieves MD [address] [place] [address] Surgeon Cardiac Surg 11/10/22 Hay Jovel DO [address] [place] [address] Cardiology 11/17/22 Surgical Instruments Inspector Relationship Specialty Start Date End Date Raul Dumont DO PCP - General 01/22/10 Floyd Spaulding MD [address] [facility], [address], [address] [place] [address] Primary Staff Physician Cardiology 08/23/18 Savanna Zhang MD [address] [facility], [facility], [address] [place] [address] Primary Staff Physician Cardiology 10/05/22 Brain Nieves MD [address] [facility] [place] [address] Surgeon Cardiac Surg 11/10/22 Hya Jovel DO [address] [place] [address] Cardiology 11/17/22 Surgical Instruments Inspector Relationship Specialty Start Date End Date Raul Dumont DO PCP - General 01/22/10 Floyd Spaulding MD [address] [facility], [facility], [address] [place] [address] Primary Staff Physician Cardiology 08/23/18 Savanna Zhang MD [address] [facility], [address] [place] [address] Primary Staff Physician Cardiology 10/05/22 Brain Nieves MD [address] [place] [address] Surgeon Cardiac Surg 11/10/22 Hay Jovel DO [address] [place] [address] Cardiology 11/17/22 Surgical Instruments Inspector Relationship Specialty Start Date End Date Raul Dumont DO PCP - General 01/22/10 Floyd Spaulding MD [address] [facility], [facility], [address] [place] [address] Primary Staff Physician Cardiology 08/23/18 Savanna Zhang MD [address] [facility], [facility], [address] [place] [address] Primary Staff Physician Cardiology 10/05/22 Brain Nieves MD [address] [place] [address] Surgeon Cardiac Surg 11/10/22 Hay Jovel DO [address] [place] [address] Cardiology 11/17/22 Surgical Instruments Inspector Relationship Specialty Start Date End Date Raul Dumont DO PCP - General 01/22/10 Floyd Spaulding MD [address] [facility], [facility], [address] [place] [address] Primary Staff Physician Cardiology 08/23/18 Savanna Zhang MD [address] [facility], [facility], [address] [place] [address] Primary Staff Physician Cardiology 10/05/22 Brain Nieves MD [address] [place] [address] Surgeon Cardiac Surg 11/10/22 Hay Jovel DO [address] [place] [address] Cardiology 11/17/22 Surgical Instruments Inspector Relationship Specialty Start Date End Date Raul Dumont DO PCP - General 01/22/10 Floyd Spaulding MD [address] [facility], [address], [address] [place] [address] Primary Staff Physician Cardiology 08/23/18 Savanna Zhang MD [address] [facility], [address], [address] [place] [address] Primary Staff Physician Cardiology 10/05/22 Brain Nieves MD [address] [place] [address] Surgeon Cardiac Surg 11/10/22 Hay Jovel DO [address] [place] [address] Cardiology 11/17/22 Surgical Instruments Inspector Relationship Specialty Start Date End Date Raul Dumont DO PCP - General 01/22/10 Floyd Spaulding MD [address] [facility], [address], [address] [place] [address] Primary Staff Physician Cardiology 08/23/18 Savanna Zhang MD [address] [facility], [address], [address] [place] [address] Primary Staff Physician Cardiology 10/05/22 Brain Nieves MD [address] [place] [address] Surgeon Cardiac Surg 11/10/22 Hay Jovel DO [address] [place] [address] Cardiology 11/17/22 Surgical Instruments Inspector Relationship Specialty Start Date End Date Raul Dumont MD [address] [place] [address] PCP - General Prosthetic Aides Teacher 03/18/23 Surgical Instruments Inspector Relationship Specialty Start Date End Date Raul Dumont MD [address] [place] [address] PCP - General Prosthetic Aides Teacher 03/18/23 Surgical Instruments Inspector Relationship Specialty Start Date End Date Raul Dumont MD [address] [place] [address] PCP - General Prosthetic Aides Teacher 03/18/23 Surgical Instruments Inspector Relationship Specialty Start Date End Date Raul Dumont MD [address] [place] [address] PCP - General Prosthetic Aides Teacher 03/18/23 Goals (unrecognized section and content) Goals [...] BE BASED ON THE PRIMARY CLINICAL RECORDS. [facility]. provides no warranty or guarantee of the accuracy or completeness of information in this document.
--- NOTE | 2024-07-09 18:07 | CT_ITS ---
[address] [address] Patient Name: VERONICA CORONEL MRN: [id number] date: 1940 Sex: M Assigned Patient Location: ER Current Patient Location: ER Accession/Order Number: [id number] Exam Date: 07/09/2024 18:26 Report Date: 07/09/2024 19:49 At the request of: RAMON CHINO Procedure: CT cervical spine wo con EXAM: CT cervical spine wo con HISTORY: Fall. TECHNIQUE: Axial CT scans through the cervical spine were obtained without contrast administration. Sagittal and coronal reconstruction images were obtained. Dose reduction techniques were achieved by using: automated exposure control and/or adjustment of mA and /or kV according to patient size and/or the use of an iterative reconstruction technique. COMPARISON: 07/05/2024. FINDINGS: No acute fracture or posttraumatic malalignment is shown. Decreased disc height and mild discovertebral complexes without central spinal stenosis from C3 to C7. 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 The prevertebral soft tissue space appears normal. Visualized intracranial contents appear normal. The visualized neck shows no adenopathy. Visualized lung apices are clear. CT/CT cervical spine wo con IMPRESSION: No acute fracture or posttraumatic malalignment. Discovertebral degenerative changes without central spinal stenosis from C3 to C7. 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 Electronically authenticated by: MARIAH RIVERA Date: 07/09/2024 19:49
--- NOTE | 2024-07-09 18:07 | ECG_ITS ---
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
--- NOTE | 2024-07-09 18:07 | CT_ITS ---
The [address] [address] Patient Name: VERONICA CORONEL MRN: [id number] date: 1940 Sex: M Assigned Patient Location: ED.MAIN Current Patient Location: ED.MAIN Accession/Order Number: [id number] Exam Date: 07/09/2024 18:26 Report Date: 07/09/2024 19:36 At the request of: RAMON CHINO Procedure: CT head/brain wo con EXAM: CT head/brain wo con HISTORY: The patient fell. TECHNIQUE: Axial CT scans through the head were obtained without IV contrast administration. Dose reduction techniques were achieved by using: automated exposure control and/or adjustment of mA and /or kV according to patient size and/or the use of an iterative reconstruction technique. COMPARISON: 07/05/2024. FINDINGS: Moderate low attenuation in the cerebral hemispheres without associated mass effect. To the limit of CT, the posterior fossa appears unremarkable. No intracranial hemorrhage is present. No depressed skull fracture is present. The ventricular system and cortical sulci are prominent. No area of abnormal mass effect is shown. The visualized orbits show no gross mass. The visualized paranasal sinuses show no air-fluid levels. Mastoid air cells are clear. Interval decrease in size of the large left supraorbital soft tissue hematoma and left frontal scalp hematoma. CT/CT head/brain wo con IMPRESSION: 1. No depressed skull fracture or intracranial hemorrhage. 2. Moderate old microvascular ischemic changes. Moderate cerebral volume loss. 3. Interval decrease in size of the large left supraorbital soft tissue hematoma and left frontal scalp hematoma. Electronically authenticated by: MARIAH RIVERA Date: 07/09/2024 19:36
--- NOTE | 2024-07-09 18:07 | CT_ITS ---
The [address] [address] Patient Name: VERONICA CORONEL MRN: [id number] date: 1940 Sex: M Assigned Patient Location: ER Current Patient Location: ER Accession/Order Number: [id number] Exam Date: 07/09/2024 18:26 Report Date: 07/09/2024 19:42 At the request of: RAMON CHINO Procedure: CT facial bones wo con EXAM: CT facial bones wo con HISTORY: Fall. TECHNIQUE: Axial CT scans through the maxillofacial bony structures were obtained without contrast administration. Coronal and sagittal reconstruction images were obtained. Dose reduction techniques were achieved by using: automated exposure control and/or adjustment of mA and /or kV according to patient size and/or use of iterative reconstruction technique. FINDINGS: No acute maxillofacial fracture is present. Paranasal sinuses are clear. Severe left supraorbital soft tissue contusion, left supraorbital soft tissue hematoma in left frontal scalp hematoma have decreased compared to 07/05/2024. The intraorbital contents appear normal. Visualized decision analyst spaces appear normal. Parapharyngeal spaces appear clear. The visualized neck shows no adenopathy. The visualized intracranial contents show no acute process. The craniovertebral junction appears normal. Middle ear cavities are clear. Mastoids are clear. CT/CT facial bones wo con IMPRESSION: No acute maxillofacial fracture. Severe left supraorbital soft tissue contusion, left supraorbital soft tissue hematoma and left frontal scalp hematoma have decreased compared to 07/05/2024. Electronically authenticated by: MARIAH RIVERA Date: 07/09/2024 19:42
--- NOTE | 2024-07-09 18:09 | ED_ITS ---
HPI HPI - General Adult General Chief complaint: Neuro Symptoms/Deficit Stated complaint: vomiting and fall Time Seen by Provider: 07/09/24 18:07 Source: patient Mode of arrival: Wheelchair Limitations: no limitations History of Present Illness HPI narrative: The patient is a 83-year-old male with history of A-fib on Xarelto, also have a history of fall before, is coming to the ER with a fall that just happened within the last hour, patient apparently was asleep when he woke up with dizziness, tried getting out of the bed and hit the counter just beside the bed, then he could not continue standing up because he was dizzy and he just crawled to the bathroom when he continued to vomit, there was some blood in the vomiting but this happened to him before when he had the trauma and he hit his nose The patient at the moment have no acute complaint, except the dizziness Related Data Home Medications ?Medication ?Instructions ?Recorded ?Confirmed carbidopa 10 mg-levodopa 100 mg 1 tab 02/04/24 tablet escitalopram oxalate 10 mg tablet 10 mg 02/04/24 finasteride 5 mg tablet 5 mg 02/04/24 losartan 25 mg tablet 25 mg 02/04/24 melatonin 5 mg capsule mg 02/04/24 metoprolol succinate 25 mg 25 mg PO 02/04/24 tablet,extended release 24 hr pantoprazole 40 mg tablet,delayed 40 mg PO 02/04/24 release rivaroxaban 20 mg tablet (Xarelto) 20 mg PO Q24H 02/04/24 07/05/24 gabapentin 300 mg capsule mg 07/05/24 Allergies Allergy/AdvReac Type Severity Reaction Status Date / Time Sulfa (Sulfonamide Allergy Unknown Unknown Verified 07/05/24 17:48 Antibiotics) Opioid HPI Opioid Management Most Recent Opioid Data: Last Pain Scale 3 07/05/24 17:54 07/05/24 Review of Systems ROS Status of ROS 10 or more systems reviewed and unremark able except as noted in history and below PFSH PFSH Social History Little interest or pleasure in doing things: not at all Feeling down, depressed, or hopeless: not at all Exam Narrative Exam Narrative: Nurses notes and vital signs reviewed and patient is not hypoxic. General: Well-appearing and in no apparent distress. And is having a bruise trace Skin: Warm, dry, no pallor noted. No rash. Head: The patient have multiple ecchymosis to the face including the right and left black eyes and also nostril examination showed that there is a mild bleeding in the right nostril that is controlled with a blood clot anteriorly, Neck: Supple, non-tender. Eye: Pupils are equal, round and EOMI. No scleral icterus. Ears, Nose, Mouth, and Throat: TM are clear, no nasal mucosal hypertrophy. Oral mucosa is moist, no posterior oropharynx erythema, uvula is mid-line Cardiovascular: Regular Rate and Rhythm without murmur, gallop or rub. Respiratory: No accessory muscle use or respiratory distress. Lungs are clear to auscultation, no wheezing, rales or rhonchi Chest Wall: no tenderness Back: No midline thoracic or lumbar vertebral tenderness. No CVA tenderness Musculoskeletal: normal ROM, no calf or popliteal tenderness, no lower extremity edema/swelling GI: Abdomen is soft, non-distended. Normal bowel sounds. No masses appreciated. No tenderness to palpation. No rebound, guarding, or rigidity noted. Neurological: A&O x4. No cranial nerve dysfunction observed. Moves all extremities. Sensation intact. Psychiatric: Cooperative and interactive. Normal mood and affect. Constitutional Vital Signs, click to edit/add: Last Vital Signs Temp 98.1 F 07/09/24 17:57 Pulse 92 H 07/09/24 17:57 Resp 18 07/09/24 17:57 BP 128/80 07/09/24 17:57 Pulse Ox 94 L 07/09/24 17:57 O2 Del Method Room Air 07/09/24 17:57 Course Vital Signs Vital signs: Vital Signs Temperature 98.1 F 07/09/24 17:57 Pulse Rate 92 H 07/09/24 17:57 Respiratory Rate 18 07/09/24 17:57 Blood Pressure 128/80 07/09/24 17:57 Pulse Oximetry 94 L 07/09/24 17:57 Oxygen Delivery Method Room Air 07/09/24 17:57 Temperature 98.1 F 07/09/24 17:57 Pulse Rate 92 H 07/09/24 17:57 Respiratory Rate 18 07/09/24 17:57 Blood Pressure 128/80 07/09/24 17:57 Pulse Oximetry 94 L 07/09/24 17:57 Oxygen Delivery Method Room Air 07/09/24 17:57 Medical Decision Making MDM Narrative Medical decision making narrative: The patient EKG upon arrival showing sinus rhythm with a heart rate of [address] elevation or depression Patient presented to us with a obvious trauma to the face he have a CT of the head CT cervical as well as CT face is pending Also blood workup is pending as well and the patient care will be transferred to Dr. Payan awaiting the results of the testing Discharge Plan Discharge Patient Disposition: Still a Patient
[2024-07-09 18:50] LABS: Hematocrit 36.6 % (42.0-54.0); Mean Corpuscular HGB Conc 32.8 g/dL (29.9-35.2); Mean Corpuscular Volume 91.5 fL (80.0-94.0); Mean Platelet Volume 9.2 fL (9.5-13.5); Platelet Count 156 10^3/uL (150-450); Red Cell Distribution Width 13.5 % (11.0-15.0)
[2024-07-09 19:07] LABS: INR 1.23; Prothrombin Time 12.8 sec (9.0-11.6)
[2024-07-09 19:10] LABS: Alanine Aminotransferase 16 U/L (16-63); Albumin Level 3.4 g/dL (3.4-5.0); Alkaline Phosphatase 91 U/L (46-116); Anion Gap 10.3; Aspartate Amino Transferase 21 U/L (15-37); BUN Creatinine Ratio 17.8; Bilirubin Total 0.7 mg/dL (0.2-1.0); Calcium 8.6 mg/dL (8.5-10.1); Carbon Dioxide 31.2 mmol/L (21.0-32.0); Chloride 100 mmol/L (98-107); Estimated GFR (African America 56 (>=60 mL/min/1.73m^2); Estimated GFR (Non-African Ame 46 (>=60 mL/min/1.73m^2); Globulin 3.4 g/dL; Glucose 133 mg/dL (74-106); Potassium 3.5 mmol/L (3.5-5.1); Sodium 138 mmol/L (136-145); Total Protein 6.8 g/dL (6.4-8.2)
[2024-07-09 19:11] LABS: Basophils Abs Manual 0.07 10^3/uL (0.00-0.10); Lymphocytes Absolute Manual 0.28 10^3/uL (1.20-3.80); Monocytes Absolute Manual 0.84 10^3/uL (0.30-0.80); Segmented Neut Absolute Manual 5.81 10^3/uL (1.4-6.5)
== END 2024-07-09 21:40 | disposition home or self-care (01) ==
PROVIDERS: Emergency Medicine; Emergency Provider Emergency Medicine; PCP Family Medicine
DX: S00.83XA Contusion of other part of head, initial encounter (principal); W18.39XA Other fall on same level, initial encounter; Z91.81 History of falling; Z79.01 Long term (current) use of anticoagulants; R26.89 Other abnormalities of gait and mobility; G20.A1 Parkinson's disease without dyskinesia, without mention of fluctuations; I48.91 Unspecified atrial fibrillation; R11.10 Vomiting, unspecified
CPT/HCPCS: 36415; 70450; 70486; 72125; 80053; 84484; 85007; 85027; 85610; 93005; 99285

== ENCOUNTER 2024-07-26 21:08 | Emergency (ER) | payer MEDICARE, BC, SELFPAY ==
[2024-07-26 21:10] VITALS: BP 143/119; PULSE 110; O2SAT 93; BMI 1692.6
--- OUTSIDE RECORDS SUMMARY | 2024-07-26 21:14 | XMS_ITS | CCD ---
Author Organization [facility] Care Team Providers Care Carpet Sewer Name Role Phone Raul Dumont DO Primary [...] Primary Care Provider Floyd Spaulding MD Unavailable [phone] Raul DUMONT Primary Care Physician Raul Dumont DO Primary Care Provider Floyd Spaulding MD Unavailable Savanna Zhang MD Unavailable Brain Nieves MD Unavailable Hay Jovel DO Unavailable Floyd Spaulding MD Unavailable Savanna Zhang MD Unavailable Brain Nieves MD Unavailable Raul DUMONT Primary Care Physician [phone] Lisa Archibald Unavailable Raul Dumont DO Primary Care Provider Clara Cobian Unavailable Floyd Spaulding MD Unavailable Nura FAUSTIN, Savanna Unavailable Julia MOROCHO Raul S Primary Care Provider BARBARA WARNER Attending Unavailable HUGO SOLANO Referring Unavailable JULIA, RAUL S Primary Care Unavailable JULIA, RAUL S Referring Unavailable JULIA, RAUL S Primary Care Unavailable IVONNE GRANT Attending Unavailable Jh Rosario Attending Unavailable JULIA, Raul Uribe Attending Unavailable MP MARTINEZ Attending Unavailable CHAITANYA WATKINS Attending Unavailable JULIA, RAUL S Primary Care Unavailable ADELINE Santiago, FLOYD Attending Unavailable ADELINE Santiago, FLOYD Referring Unavailable JULIA, RAUL S Primary Care Unavailable CHAITANYA WATKINS Attending Unavailable SELF Referring Unavailable JULIA, RAUL S Primary Care Unavailable JUNE, CHAITANYA Attending Unavailable JULIA, RAUL S Primary Care Unavailable CHAITANYA WATKINS Attending Unavailable SELF Referring Unavailable JULIA, RAUL S Primary Care Unavailable Raul Dumont MD Primary Care Provider ERNESTINA HAWKINS Attending Unavailab RAUL Cam Referring Unavailable ERNESTINA HAWKINS Attending Unavailab RAUL Cam Referring Unavailable PARADISE TYLER Attending Unavailable REBEKAH MARQUEZ Attending Unavailable PARADISE TYLER Attending Unavailable Allergies Allergy Classification Reported Allergen(s) Allergy Type Date of Onset Reaction(s) Facility (20 sources) Grass pollen; Translations: [GRASS POLLEN] Drug Allergy 7 Unknown [facility] (20 sources) Mometasone; Translations: [MOMETASONE] Drug Allergy 4 Other: See Comments [facility] Work Phone: (20 sources) predniSONE; Translations: [prednisone] Drug Allergy 3 Mental Status Change [facility] (20 sources) Sulfonamides (Antibiotic); Translations: [SULFA (SULFONAMIDE ANTIBIOTICS)] Drug Allergy 6 Unknown [facility] Work Phone: (1 source) Sulfonamides (Antibiotic) Drug allergy (disorder) 7 [facility] (7 sources) Sulfamethoxazole; Translations: [sulfamethoxazole ] Drug Allergy [facility] (8 sources) Azithromycin Drug Allergy 3 Rash NOMS [...] dale, Topical, BID, 24 gram, Refill(s) 1, [facility]/pharmacy #[id number], 178, cm, 10/21/22 10:47:00 EDT, Height/Length Dosing, 91.4, kg, 10/21/22 10:47:00 EDT, Weight Dosing Start Date: 10/21/22 Status: Ordered Start: 07-20-2022 clotrimazole T op 1% Crm 1 dale, Topical, BID, 24 gram, Refill(s) 1, [facility]/pharmacy #[id number], 178, cm, 07/20/22 14:05:00 EST, Height/Length Dosing, 91.3, kg, 07/20/22 14:05:00 EST, Weight Dosing Start Date: 07/20/22 Status: Ordered Co Q-10 (6 sources) Start: 10-20-2018 take 1 tablet by mouth once daily Co Q-10 See Instructions, 1 tab po daily, Refills(s) 0 Start Date: 10/20/18 Status: Ordered diazePAM 2 mg oral tablet (8 sources) Benzodiazepine Start: 12-23-2021 diazePAM (Valium) 2 MG tablet TAKE 1 TABLET BY MOUTH 30 MINUTES PRIOR TO MRI MUST HAVE JIGGER OPERATOR 12/23/2021 Active diclofenac sodium 0.01 mg/mg topical gel (1 source) Nonsteroidal Anti-inflammatory Drug Start: 11-04-2023 Diclofenac Sodium Active TOPICAL November 04, 2023 12:00am docusate sodium 100 mg oral capsule (20 sources) Start: 12-16-2022 Docusate Sodium (DSS) 100 MG capsule Take 100 mg by mouth every 12 (twelve) hours if needed. 12/16/2022 Active Start: 12-16-2022 take [address] [facility] every twelve hours as needed docusate sodium (COLACE) 100 mg capsule Take 1 capsule by mouth twice daily as needed for constipation. 12/16/2022 Active Comment on above: Take 1 capsule by mo [facility] twice daily as needed for constipation. docusate sodium 50 mg / sennosides, detention 8.6 mg oral tablet (14 sources) Start: 12-09-2022 take 1 tablet by [...] Comment on above: [facility] Continue while as needed thereafter [...] Daily, # 30 tab(s), Refills(s) 3, Pharmacy: [id number], 178, cm, 03/12/20 10:12:00 [...] Daily, # 90 tab(s), Refills(s) 1, Pharmacy: [facility]/pharmacy #[id number], 178, cm, 10/21/22 10:47:00 EDT, Height/Length Dosing, 91.4, kg, 10/21/22 10:47:00 EDT, Weight Dosing Start Date: 01/05/23 Status: Ordered Comment on above: Take 25 mg by mouth once daily. lysine 500 mg oral tablet (20 sources) lysine 500 mg ta b Take by mouth. Active Comment on above: Take by mouth. magnesium hydroxide 80 mg/ml oral suspension (11 sources) Start: 3 magnesium hydroxide (Milk of [...] as needed. melatonin 5 mg oral tablet (14 sources) Start: 10-28-2022 take 1 tablet by mouth once daily at bedtime melatonin 5 mg oral tablet 5 mg = 1 tab(s), Oral, Once a day (at bedtime), # 90 tab(s), Refills(s) 1, Pharmacy: [facility]/pharmacy #[id number], 178, cm, 10/21/22 10:47:00 EDT, [...] hydrochloride 5 mg oral tablet (1 source) N-hsghnr-G-aspartate Receptor Antagonist Start: 11-04-2023 take 5 mg [...] once daily. Take 2 tablets by mo [facility] once daily. MULTIVITAMIN ORAL (20 sources) MULTIVITAMIN [...] Daily, # 90 tab(s), Refills(s) 3, Pharmacy: [facility]/pharmacy #[id number], 178, cm, 02/02/22 10:46:00 EDT, Height/Length Dosing, 86.8, kg, 02/02/22 10:46:00 EDT, Weight Dosing Start Date: 04/17/22 Status: Ordered Comment on above: Take 1 tablet by tasha once daily. potassium chloride 10 meq extended release oral tablet (12 sources) Start: 12-10-19 End: 12-17-19 take 1 tablet by mouth once daily potassium chloride CR (Klor-Con) 10 MEQ ER tablet TAKE 1 TABLET BY MOUTH EVERY DAY FOR 7 DAYS 12/09/2022 Active Comment on above: Take 1 tablet by tasha once daily for 7 days. QUEtiapine 25 mg oral tablet (1 source) Atypical Antipsychotic Start: 11-04-19 take 25 mg by mouth twice daily [...] Take 1 tablet by tasha once daily. fluticasone propionate 0.05 mg/actuat metered [...] 2017 12:00am July 23, 2018 11:55pm mag ydzwe-B3-vmrxaxhe rt xt 500-3,000-150 mg-unit-mg tab (18 sources) End: 01-14-2023 mag olcry-K9-pggzcvlt rt xt 500-3,000-150 mg-unit-mg tab Take by mouth. 0 01/14/2023 Discontinued mag htdkv-O8-ulm meric rt xt 500-3,000-150 mg-unit-mg tab Take [...] Leukotriene Receptor Antagonist Start: 02-11-20 End: 07-11-19 take 1 tablet by mouth once daily [...] in NaCl (PF) 0.9% 10 mL injection (DEFIN[employer]ericare Management) polyethylene glycol 3350 78037 mg powder for oral solution (9 sources) [...] Hyperlipidemia; Translations: [Hyperlipidemia, unspecified] Onset: 2 Chronic E Codes: Fall (2 sources) Fall; Translations: [Unspecified fall, subsequent encounter] Onset: 5 07-23-2024 Episodic Esophageal disorders (20 sources) Gastroesophageal reflux disease [...] soft tissue, and skin] 02-17-2024 Episodic Osteoarthritis (8 sources) Localized osteoarthrosis; Translations: [Primary osteoarthritis, right [...] GAIT AND MOBILITY] Onset: 2 Episodic Other nervous system disorders (9 sources) Impairment of balance; Translations: [Other abnormalities of gait and mobility] Onset: 3 12-14-2022 Episodic Other non-traumatic joint disorders (1 source) [...] Spondylosis; intervertebral disc disorders; other back problems (8 sources) Cervical spondylosis; Translations: [Other spondylosis with radiculopathy, cervical region] Onset: 3 03-14-2023 Chronic Superficial injury; contusion (10 sources) Contusion of rib; Translations: [Contusion of unspecified front wall of thorax, initial encounter] 06-27-2021 Episodic Transient cerebral ischemia (6 sources) Transient cerebral ischemia 03-14-2010 Chronic Unclassified (2 sources) Parkinson's disease; Translations: [Parkinson's disease with dyskinesia and fluctuating manifestations (CMS/HCC)] Onset: 5 07-23-2024 Chronic Unclassified (4 sources) Foreskin finding 02-16-2023 [...] Resolved: 12-07-2022 12-07-2022 Episodic Malaise and fatigue (8 sources) Physical deconditioning; Translations: [Other malaise] Onset: [...] 08-21-2014 08-21-2014 Episodic Other connective tissue disease (8 sources) Muscle weakness; Translations: [Muscle weakness (generalized)] [...] 12-25-2009 12-25-2009 Episodic Other non-traumatic joint disorders (8 sources) Pain in right shoulder; Translations: [Pain in joint, shoulder region] Onset: 03-03-2023 03-03-2023 Episodic Other non-traumatic joint disorders (8 sources) Chronic pain of right upper limb; [...] Spondylosis; intervertebral disc disorders; other back problems (8 sources) Neck pain; Translations: [Cervicalgia] Onset: 03-14-2023 03-14-2023 Episodic Results Test Name Value Interpretation Reference Range Facil raul Kimball 05-10-2024 CNOV Office Visit (LOORRM) ---- JORDI FRANCO ([id number]) 1940 M I Xcld* Date Time Provider Department 05/10/24 8:45 AM CHAITANYA WATKINS During your visit today, we recorded the following information about you: Chaitanya Watkins Dustin 05/10/2024 9:32 AM Signed SUBJECTIVE: The patient [...] Date Reviewed: 02/08/2024 Reviewed by: Natty Charles, BELA - Fully Assessed Primary Visit Diagnosis:Onychomyc osis [...] 12/04/2022 Encou (more content not included)... Normal [facility] Urology Office/Clinic Noteon 02-23-2024 Urology Office/Clinic [...] E&M of Est. Patient Low 20-29 Min 02431 2. Prostate cancer screening (Z12.5: Encounter for screening for malignant neoplasm of prostate) PSA 01/17/24 - 0.24 which is low/stable and well within normal range I discussed the options concerning the PSA and continued monitoring, given his advancing age. He wants to continue monitoring his PSA levels for now. Ordered: E&M of Est. Patient Low 20-29 Min 61119 Other obstructive and reflux uropathy (N13.8: Other obstructive and reflux uropathy) Offered continued scheduled follow up with our clinic vs following up PRN. Pt prefers the latter. We will ensure PCP continues to order refills and annual PSA. Letter sent. Follow-up With When Contact Information CHANTEL NORRIS, IVONNE Hernandez, URL Only if needed [address] [place] [place] [address] [place]ta (1) Additional Instructions: Patient Education Benign Prostatic [...] influenza vir (more content not included)... Normal [facility] Comment on above: Result Comment: Elec [...] you for choosing us for your care. Normal [facility] Provider Letteron 02-22-2024 Provider Letter Provider Letter Dr Raul Dumont, [address] [place] [address] Re: JORDI FRANCO Date of : [address] DUMONT DO, JORDI Narvaez was evaluated at [facility] Urology 02/22/2024 10:00:00 As this patient has been [...] Thanks! Provider Signature: Ivonne Grant PA-C Physician Assistant Produce Manager [facility] Urology [address] [place] [address] Nu [facility] CNOVon 02-08-2024 CNOV Office Visit (LOORRM) ---- JORDI FRANCO ([id number]) 1940 M HVI Xcld* Date Time Provider Department 02/08/24 11:00 AM CHAITANYA WATKINS During your visit today, we recorded the following information about you: Chaitanya Watkins DPM 02/08/2024 11:21 AM Signed SUBJECTIVE: The patient [...] [N40.0] 12/04/2022 (more content not included)... Normal [facility] XR KNEE RIGHT (1-2 VIEWS)on 12-06-2023 [...] Rosalba Guzman MD 12/06/23 Final result Normal [facility] CNPNon [facility]-09[facility]20[facility] ---- JORDI FRANCO ([id number]) 1940 M I Xcld* Date Time Provider Department 11/09/23 FLOYD SPAULDING [facility] During your visit today, we recorded the following information about you: Radha Love 11/09/2023 3:50 PM Signed November 09, 2023 [id number] Patient Name: Jordi Franco Contact Information: [phone] (home) [phone] (cell) Reason For Call: Medication Issue/Question: Xerelto Physician:Floyd Spaulding M.D. Additional Comments: Pt has parkinson's and is falling a lot. Please revisit Rx dosage roberta of falls. Please advise. Is it ok to leave detailed message on voice mail : Yes Requested Prescriptions No prescriptions requested or ordered in this encounter Clara Garcia RN 11/09/2023 4:11 PM Signed Tried to reach [...] for Visit: Medication Problem [65] Patient Question [5597] Prescriptions as of 11/19/2023 - metoprolol succinate [...] Status:Closed by RADHA LOVE on 11/19/23 Normal [facility] CNOVon 11-03-2023 CNOV Office Visit (LOORRM) ---- JORDI FRANCO ([id number]) 1940 M I Xcld* Date Time Provider [...] [N40.0] 12/04/2022 (more content not included)... Normal [facility] CNPNon 10-19-2023 CNPN Telephone (LOORRM) ---- JORDI FRANCO ([id number]) 1940 M HVI Xcld* Date Time Provider Department 10/19/23 CHAITANYA WATKINSDANIELA During your visit today, we recorded the [...] On mechan (more content not included)... Normal [facility] CNOVon 08-05-2023 CNOV Office Visit (LOORRM) ---- JORDI FRANCO ([id number]) 1940 M I Xcld* Date Time Provider Department 08/05/23 10:15 AM CHAITANYA WATKINS LOORRM During your visit today, we recorded the following information about you: Chaitanya Watkins, [facility] 08/05/2023 10:12 AM Signed SUBJECTIVE: The patient [...] 12/04/2022 Encoun (more content not included)... Normal [facility] Ynes 07-07-2023 [facility]) ---- JORDI FRANCO ([id number]) 1940 M HVI Xcld* Date Time Provider Department 07/07/23 BARBARA WARNER [facility] During your visit today, we recorded the following information about you: Caro Montalvo RN 07/07/2023 3:07 PM Signed Received fax from [facility] pharmacy for patient's metoprolol. Fax shows [...] Fully Assessed Reason for Visit: Medication Question [9838] Prescriptions as of 07/08/2023 - rivaroxaban (XARELTO) [...] Encounter Status:Closed by CARO MONTALVO on 07/08/23 [facility] Ynes 06-11-2023 BOBBY Telephone (JUAN DANIEL) ---- JORDI FRANCO ([id number]) 1940 M I Xcld* Date Time Provider Department 06/11/23 CAHITANYA WATKINS During your visit today, we recorded the following information about you: Magalys Shen, Cast Tech 06/11/2023 1:48 PM Signed Left message on identified VM that orthotics have come in and may be picked up in the [place] office. Allergies As of Date: 06/11/2023 Noted [...] Encounter Status:Closed by MAGALYS SHEN on 06/11/23 [facility] CNOVon 06-04-2023 CNOV Office Visit (CEPSHL) ---- JORDI FRANCO ([id number]) 1940 M I Xcld* Date Time Provider Department 06/04/23 10:30 AM FLOYD SPAULDING During your visit today, we recorded the following information about you: Pulse Blood pressure Weight 74/minute 134/70 93 kg Floyd Spaulding MD 06/04/2023 10:50 AM [facility] [place] Clemencia Dixon Department of Cardiovascular Medicine OUTPATIENT [...] cardiac surgery 12/04/2022 Cardiomegaly 09/22/2012 borderline Dyslipidemia [place] (hard of hearing) Hypertension Mitral regurgitation Pinched nerve in neck Spinal stenosis Stroke (HCC) 06/07/2007 TIA (transient ischemic attack) 06/07/2007 N[place] PAST SURGICAL HISTORY Procedure Laterality Date ATRIAL FIBRILLATION/FLUTTE R ABLATION 2001,2003, 2012 - Radiofrequency ablation for atrial fibrillation BACK SURGERY HX Disc Surgery FOOT/TOES SURGERY PROC UNLISTED 02/05/2010 Performed by CHAITANYA WATKINS at [facility] GASTROCNEMIUS RECESSION 02/05/2010 Performed by CHAITANYA WATKINS at [facility] [place] PAST SURGICAL HISTORY [...] of Onset Ischemic Heart Disease Father 52 [place] other (cancer, lung) Father 56 yrs Asthma [...] mouth once (more content not included)... Normal [facility] CMQ92ft 06-04-2023 ECG01 Ventricular Rate : 74 BPM Atrial Rate : 74 BPM P-R Interval : 174 ms QRS Duration : 108 ms Q-T Interval : 418 ms QTC Calculation(Bazett) : 463 ms Calculated P [place] : 24 degrees Calculated R [place] : -46 degrees Calculated T [place] : 24 degrees NORMAL SINUS RHYTHM LEFT AXIS DEVIATION ABNORMAL ECG Confirmed by FLOYD SPAULDING M.D. ([id number]) on 06/10/2023 7:35:58 AM NAME : JORDI FRANCO PID : [id number] : 1940 Gender : Male Race : ORD : Procedure Date : Jun 04 2023 11:24:03 Edit Date : Jun 10 2023 07:35:58 Diagnosis: NORMAL SINUS RHYTHM LEFT AXIS DEVIATION ABNORMAL ECG Confirmed by FLOYD SPAULDING M.D. ([id number]) on 06/10/2023 7:35:58 AM Test Reason : Location : 198 : MFCARD 7 Overread By : FLOYD SPAULDING M.D. Edited By : FLOYD SPAULDING M.D. Referred By : FLOYD SPAULDING Acquired by : MILLY MOYER Normal [facility] XR Foot - left AP and Latera l and obliqueon 05-12-2023 IMPRESSION: No acute osseous abnormality. Funeral Car Driver: PSCB Transcribe Date/Time: May 12 2023 9:35A Dictated by : HUGH LUCERO MD This examination was interpreted and the report reviewed and electronically signed by: JOSE SAMANIEGO MD on May 12 2023 10:55AM [facility] DIVISION OF RADIOLOGY * * *Final Report* [...] first MTP osteoarthritis. DIVISION OF RADIOLOGY Provider, [facility] [place] - 05/12/2023 * * *Final Report* * [...] osteoarthritis. IMPRESSION IMPRESSION: No acute osseous abnormality. Funeral Car Driver: PSCB Transcribe Date/Time: May 12 2023 9:35A Dictated by : HUGH LUCERO MD This examination was interpreted and the report reviewed and electronically signed by: JOSE SAMANIEGO MD on May 12 2023 10:55AM EST [facility] Radiology Study observation (narrative) [facility] XR Foot - left AP and Latera l and obliqueOrdered By: Ccf Provider on 05-12-2023 [facility] Family Medicine Office/Clini c Noteon 05-10-2023 [...] of clutter to prevent tripping and/or falling. [place] Advance Directives reviewed, on file in chart. [...] no concerns. Reviewed pain symptoms with patient: 0 Reviewed all outside providers that patient follows. [...] follow up visits. Patient follows up with Railroad Worker, last visit notes available in chart and have been reviewed. Cardiac Healthy Nutritional handout reviewed and provided for (more content not included)... Normal [facility] Comment on above: Result Comment: Elec [...] 1? oz glass (more content not included)... [facility] Screenson 05-06-2023 Screens [id number] [facility] Ambulatory Visit Summaryon 1 07-03-2022 Ambulatory [...] Follow-Up Appointments Wednesday 10:00 AM EDT With: CHANTEL NORRIS, IVONNE Hernandez Where: [facility] Normal [address] [place] [address]-\.br\ Medications\.br\ What How Much When Instructions\.br\ Unchanged [...] hard liquor (44 mL).\.br\ Lifestyle\.br\ ? \.br\ Onley your teeth every morning and night with [...] sure you follow all gun safety procedures.\.br\ [facility] ED Note-Physicianon 04-12-20 ED Note-Physician Basic Information Time Seen: Daveyrayne SantiagoJh 04/11/2023 09:46 History of Present Illness The [...] they were driving to go to the jew. The patient denies any spinning. He states [...] both correctly = 0 Open and close eyes/firewall engineer release hand: Obeys both correctly = 0 [...] and Complexity of Problems Differential Diagnosis: [] [facility] Data External documents reviewed: [] My [...] DUMONT In 3 days 04/14/[address] [facility] [place] [address]- [phone] Business (1) Additional Instructions: Return to the emergency room if your dizziness recurs or any new symptoms. Patient Education D (more content not included)... Normal [facility] Comment on above: Result Comment: Elec tronically Signed By: Marlene Santiago, Jh H\.br\Date and Time Signed: 04/12/23 11:19 EST Auto Diffon 04-11-2023 Basophils/100 WBC (Bld) 0.7 % Normal 0.0-2.0 [facility] Comment on above: Order Comment: Order Added by Discern Expert. Performed By: #### 1 [id number], [id number], [id number], 0876674, 7097478, 5552695, 6249984, [id number] ####[facility] [address] [place] [address] Basophils/Leukocytes Auto (Bld) [Pure # fraction] 0.0 E9/L Normal 0.0-0.2 [facility] Comment on above: Order Comment: Order Added by Discern Expert. Performed By: #### 1 [id number], [id number], 6692169, 9075628, 6960749, 5248704, 6399746, [id number] ####[facility] [address] [place] [address] Eosinophils/100 WBC (Bld) 2.5 % Normal 0.0-8.0 [facility] Comment on above: Order Comment: Order Added by Discern Expert. Performed By: #### 1 [id number], [id number], 3726689, 0290813, 1048527, 2591826, 0145256, [id number] ####[facility] [address] [place] [address] Eosinophils/Leukocyt es Auto (Bld) [Pure # fraction] 0.1 E9/L Normal 0.0-0.5 [facility] Comment on above: Order Comment: Order Added by Discern Expert. Performed By: #### 1 [id number], [id number], 3584000, 9650283, 4203724, 3962070, 4187796, 64573193 ####[address] [place] [address] Lymphocytes/100 WBC (Bld) 16.8 % Normal 14.0-50.0 [facility] Comment on above: Order Comment: Order Added by Discern Expert. Performed By: #### 1 [id number], 07576638, 2284952, 9954129, 6470626, 7919042, 8545614, [id number] ####[address] [address] Lymphocytes/Leukocyt es Auto (Bld) [Pure # fraction] 0.6 E9/L Low 1.0-4.0 [facility] Comment on above: Order Comment: Order Added by Discern Expert. Performed By: #### 1 [id number], 46854037, 1329617, 6917453, 3366541, 4607493, 3967676, [id number] ####[address] [address] Monocytes/100 WBC (Bld) 15.1 % High 4.0-14.0 [facility] Comment on above: Order Comment: Order Added by Discern Expert. Performed By: #### 1 [id number], 19087118, 6392634, 0875388, 0550435, 3669056, 2457637, 83749978 ####[address] [place] [address] Monocytes/Leukocytes Auto (Bld) [Pure # fraction] 0.5 E9/L Normal 0.2-1.0 [facility] Comment on above: Order Comment: Order Added by Discern Expert. Performed By: #### 1 [id number], 85420280, 6697269, 1963460, 0316899, 1752056, 1459649, 30448069 ####[facility] [address] [place] [address] Neutrophils/100 WBC (Bld) 64.9 % Normal 36.0-75.0 [facility] Comment on above: Order Comment: Order Added by Discern Expert. Performed By: #### 1 [id number], 30665485, 2663508, 9568155, 0161326, 4831166, 9641139, 98866014 ####[facility] [address] [place] [address] Neutrophils/Leukocyt es Auto (Bld) [Pure # fraction] 2.3 E9/L Normal 2.0-7.5 [facility] Comment on above: Order Comment: Order Added by Discern Expert. Performed By: #### 1 [id number], 09030789, 5306962, 4298162, 8359929, 9763588, 1249609, 21099270 ####[facility] [address] [place] [address] BMP 04-11-2023 Creatinine [Mass/Vol] 1.0 mg/dL Normal 0.5-1.3 [facility] Comment on above: Performed By: #### 1 [id number], 86554817, 7338478, 8509030, 8919033, 8429732, 4366867, 41336401 ####[facility] [address] [place] [address] Urea nitrogen [Mass/Vol] 24 mg/dL High 5-21 [facility] Comment on above: Performed By: #### 1 [id number], 64231835, 4855766, 9697698, 8098589, 0378990, 2254028, 81976294 ####[facility] [address] [place] [address] Urea nitrogen/Creatinine [Mass ratio] 24 No Units High 10-20 [facility] Comment on above: Performed By: #### 1 2914450, 15634077, 8130735, 7255056, 2739046, 2450534, 4061898, 03388694 ####[facility] [address] [place] [address] Anion gap [Moles/Vol] 8 mmol/L Normal 6-16 [facility] Comment on above: Performed By: #### 1 0296105, 97773403, 0426600, 1291504, 2407065, 0971630, 7212389, 00868499 ####[facility] [address] [place] [address] Calcium [Mass/Vol] 9.1 mg/dL Normal 8.9-11.1 [facility] Comment on above: Performed By: #### 1 3673391, 41716315, 0586873, 3077164, 3776192, 0662081, 4007702, 34542792 ####[facility] [address] [place] [address] Chloride [Moles/Vol] 105 mmol/L Normal 101-111 [facility] Comment on above: Performed By: #### 1 6436488, 90931657, 8472158, 3584127, 2055603, 8149574, 6094157, 96642717 ####[facility] [address] [place] [address] CO2 [Moles/Vol] 29 mmol/L Normal 21-31 [facility] Comment on above: Performed By: #### 1 5223542, 25884778, 7991527, 6567845, 6829321, 9419773, 9972383, 07197615 ####[facility] [address] [place] [address] Glucose [Mass/Vol] 100 mg/dL Normal 55-199 [facility] Comment on above: Result Comment: If t his glucose result represents a fasting glucose, interpretation should refer to the following reference range: 55-99 mg/dL Performed By: #### 1 2382827, 51506669, 9237771, 0502544, 4709403, 4998895, 5800025, 34183564 ####[facility] [address] [place] [address] Potassium [Moles/Vol] 3.6 mmol/L Normal 3.5-5.3 [facility] Comment on above: Performed By: #### 1 8457586, 01074114, 2873130, 6435236, 6989468, 2072389, 3858935, 34911279 ####[facility] [address] [place] [address] Sodium [Moles/Vol] 138 mmol/L Normal 135-145 [facility] Comment on above: Performed By: #### 1 6193742, 85897682, 3502252, 4574406, 2187572, 6280498, 1362599, 79735857 ####[address] [place] [address] CBC w/ Auto Diffon 3 Erythrocyte distribution width (RBC) [Ratio] 15.3 % High 10.9-14.2 [facility] Comment on above: Performed By: #### 1 4841202, 55311733, 9800319, 1854572, 3405799, 6966164, 7477064, 85871614 ####[address] [place] [address] Hematocrit (Bld) [Volume fraction] 36.6 % Low 37.7-49.0 [facility] Comment on above: Performed By: #### 1 0018405, 22697029, 2133855, 5544757, 1804071, 0482500, 4059491, 03068831 ####[address] [place] [address] Hemoglobin (Bld) [Mass/Vol] 11.9 g/dL Low 13.5-17.5 [facility] Comment on above: Performed By: #### 1 8299893, 95901085, 5678408, 9200504, 2348778, 5466303, 2866350, 34042669 ####[facility] [address] [place] [address] MCH (RBC) [Entitic mass] 27.5 pg Normal 27.0-34.0 [facility] Comment on above: Performed By: #### 1 4561145, 31540074, 9075159, 0646627, 2312003, 3155704, 4488985, 35884149 ####[address] [address] MCHC (RBC) [Mass/Vol] 32.5 g/dL Normal 31.4-36.0 [facility] Comment on above: Performed By: #### 1 7869529, 61405983, 1241323, 9995278, 0821397, 8763872, 2302181, 40611054 ####[address] [address] MCV (RBC) [Entitic vol] 84.6 fL Normal 80.0-100.0 [facility] Comment on above: Performed By: #### 1 9546012, 34099649, 9269166, 7940928, 2286305, 2526201, 1160144, 34538215 ####[address] [address] Platelet mean volume (Bld) [Entitic vol] 7.1 fL Normal 6.4-10.8 [facility] Comment on above: Performed By: #### 1 2338652, 27214821, 2840310, 8065408, 0200969, 2574420, 0649259, 39065575 ####[address] [place] [address] Platelets (Bld) [#/Vol] 163.0 E9/L Normal 150.0-500.0 [facility] Comment on above: Performed By: #### 1 4278282, 55595856, 8227727, 0268338, 3568082, 3081145, 0460578, 32402334 ####[address] [address] RBC (Bld) [#/Vol] 4.3 E12/L Normal 4.3-5.9 [facility] Comment on above: Performed By: #### 1 3771864, 83421139, 2473601, 3780135, 0341497, 2166723, 7501364, 67527174 ####[facility] [address] [place] [address] WBC corrected for nucl RBC Auto (Bld) [#/Vol] 3.6 E9/L Low 4.0-11.0 [facility] Comment on above: Performed By: #### 1 9253329, 47503405, 0005625, 5849746, 1689202, 8473278, 2576202, 26909434 ####[facility] [address] [place] [address] CHEMISTRYOrdered By: SYSTEM SYSTEM on 04-11-2023 Albumin [...] mmol/L Normal 101 - 111 mmol/ L FT Remisol CO2 [Moles/Vol] 29 mmol/L Normal 21 - 31 mmol/L [facility] Creatinine [Mass/Vol] 1.0 mg/dL Normal 0.5 - 1.3 mg/dL [facility] GFR/1.73 sq M.predicted among non-blacks MDRD (S/P/Bld) [Vol rate/Area] 75 mL/min/1.73 m2 Normal >=59mL/min/1.73 m2 [facility] Chem S Comment on above: Interpretive Data: [...] 8.50 pg/mL Low 15.90 - 38.40 pg/mL [facility]isol Comment on above: Interpretive Data: T he 95% CI (Confidence Interval) PPV (Positive Predictive Value) for myocardial infarction in females is 38 pg/mL, in males 51 pg/mL. The results should be used in conjunction with clinical conditions of myocardial infarction. (Access High Sensitivity Troponin I Instructions For Use, [facility] [place], January 2018) Urea nitrogen [Mass/Vol] 24 mg/dL High 5 - 21 mg/dL [facility]isol Urea nitrogen/Creatinine [Mass ratio] 24 mg/mg High 10 - 20 [facility] COAGULATIONOrdered By: Wendi Hernandez on 04-11-2023 aPTT Coag (PPP) [Time] 36.3 s Normal 25.1 - 36.5 second(s) [facility] Auto Coag Comment on above: Interpretive Data: [...] the same coagulation reagent and instrumentation as [facility]. Currently there are no coagulation studies available worldwide for children to 14 days, and no normal ranges. Heparin therapeutic range (represented by Anti-Factor Xa activity of 0.2 - 0.4 U/mL) corresponds to PTT of 56.6 - 109.0 sec. INR Coag (PPP) [Relative time] 1.2 {INR} Invalid Interpretation Code [facility] Auto Coag Comment on above: Interpretive Data: I NR results are specifically intended to assess patients stabilized on long-term Anticoagulation therapy suggested INR s Less Intensive Anticoagulation 2.0 3.0 Conventional Range 3.0 4.5 PT Coag (PPP) [Time] 13.9 s High 9.4 - 1 2.5 second(s) [facility] Auto Coag Comment on above: Interpretive Data: [...] the same coagulation reagent and instrumentation as [facility]. Currently there are no coagulation studies available [...] V. Transcribed by: GREGG Technologist: ORLY Normal [facility] Consent for Treatmenton Consent for Treatment [id number] EC#1.00TIFF Normal [facility] Discharge Instructionson Discharge Instructions [id number] Normal [facility] ED Clinical Summaryon 2022 ED Clinical Summary [address] [address] ED Clinical Summary Person Information Name: JORDI FRANCO [place] Age: 82 Years : 1940 Sex: Male Language: Sinhala PCP: Raul DUMONT DO Marital Status: Visit [...] 04/11/2023 12:30:48 04/11/2023 12:30:48 04/11/2023 12:30:48 ADDRESS: [address] [place] [address] [phone] PHYS DOC NOTES: MEDICAL INFORMATION: Prescriptions Given: [...] Follow up: With: Address: When: Raul JULIA [address] [facility], [facility] [place] [address] [phone] Business (1) In 3 days 04/14/2023 Comments: Return to the emergency room if your dizziness recurs or any new symptoms. DIAGNOSIS: 1:Dizziness Normal [facility] ED Patient Education Noteon 04-11-2023 ED [...] is good. ? 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 ? Take qlfb-nhg-zarzhcf and prescription medicines only as told by [...] provider. Document Revised: 04/28/2021 Document Reviewed: 04/28/2021 [employer] Patient Education ? 2022 [employer] Normal [facility] ED Patient Summaryon 023 ED Patient Summary [place] [id number] Patient Discharge Instructions Person Information Name: MERLINJORDI LAKE Age: 82 Years Arrival Date: 04/11/2023 09:36:59 Discharge Diagnosis: 1:Dizziness Primary Care Physician: Raul DUMONT DO Provider Information Primary Provider: Jh Rosario M.D. [place] Worker:None The exam and treatment you received in the Emergency Department were for an urgent problem and are not intended as complete care. It is important that you follow up with a doctor, nurse practitioner, or physician?s assistant district attorney for ongoing care. If your symptoms become worse or you do not improve as expected and you are unable to reach your usual health care provider, you should return to the Emergency Department. We are available 24 hours a day. JORDI FRANCO has been given the following list of patient education materials, prescriptions and follow-up instructions: Follow-up Instructions: With: Address: When: Rual DUMONT [address] [facility] [address], [facility] [place] [address] [phone] Business (1) In 3 days 04/14/2023 Comments: [...] opioids can be used to help relieve ycwaayrb-sv-sbuvpz pain and are often prescribed following a [...] be struggling with addiction, tell your health health care analyst and ask for kierra (more content not included)... Normal [facility] HEMATOLOGYOrdered By: SYSTEM SYSTEM on 04-11-2023 [...] 0.5 E9/L Normal 0.2 - 1.0 E9/L FT HemeAutoSS Neutrophils/100 WBC (Bld) 64.9 % Normal 36.0 - 75.0 % FT HemeAutoSS Neutrophils/Leukocyt es Auto (Bld) [Pure # fraction] 2.3 E9/L Normal 2.0 - 7.5 E9/L FT HemeAutoSS HEMATOLOGYOrdered By: Cynthia Camejo on 04-11-2023 Erythrocyte distribution width (RBC) [Ratio] 15.3 % High 10.9 - 14.2 % FT HemeAutoSS Hematocrit (Bld) [Volume fraction] 36.6 % [...] 163.0 E9/L Normal 150.0 - 500.0 E9/L FT HemeAutoSS RBC (Bld) [#/Vol] 4.3 E12/L Normal 4.3 - 5.9 E12/L FT HemeAutoSS WBC corrected for nucl RBC Auto (Bld) [#/Vol] 3.6 E9/L Low 4.0 - 11.0 E9/L FT HemeAutoSS Hep Func Panelon 04-11-2023 Albumin [Mass/Vol] 3.8 g/dL Normal 3.3-5.0 [facility] Comment on above: Performed By: #### 1 7191293, 82568704, 5980255, 0435075, 9421120, 3128992, 5329343, 39676735 ####[facility] [address] [place] [address] Albumin/Globulin (S) [Mass conc ratio] 1.2 Normal 1.1-2.2 [facility] Comment on above: Performed By: #### 1 6184576, 23973591, 1983563, 2328543, 4929055, 8635482, 9169306, 35383823 ####[facility] [address] [place] [address] ALP [Catalytic activity/Vol] 79 Int._Unit/L Normal 21-98 [facility] Comment on above: Performed By: #### 1 7357407, 55372998, 6985137, 1414149, 7987404, 9252347, 1525349, 38540546 ####[address] [address] ALT No additional P-5'-P [Catalytic activity/Vol] 16 Int._Unit/L Normal 6-46 [facility] Comment on above: Performed By: #### 1 1666282, 84171475, 6784732, 8474903, 6750782, 7967819, 5148899, 12147250 ####[address] [place] [address] AST [Catalytic activity/Vol] 24 Int._Unit/L Normal 5-43 [facility] Comment on above: Performed By: #### 1 0610519, 00810466, 3313045, 2883504, 6530076, 3281761, 0854846, 05948242 ####[facility] [address] [place] [address] Bilirubin [Mass/Vol] 0.5 mg/dL Normal 0.0-1.1 [facility] Comment on above: Performed By: #### 1 9336696, 14257795, 2503410, 4026148, 8030608, 4694724, 8214453, 92447568 ####[facility] [address] [place] [address] Bilirubin.direct [Mass/Vol] 0.1 mg/dL Normal 0.1-0.4 [facility] Comment on above: Performed By: #### 1 5327226, 82887114, 8414709, 5870046, 4323454, 5902163, 7412934, 01926283 ####[facility] [address] [place] [address] Bilirubin.indirect [Mass or moles/Vol] 0.4 mg/dL Normal 0.1-0.9 [facility] Comment on above: Performed By: #### 1 6941493, 16672673, 1935552, 5336785, 0699520, 2705380, 9396721, 46399115 ####[address] [place] [address] Globulin (S) [Mass/Vol] 3.1 g/dL Normal 1.4-4.0 [facility] Comment on above: Performed By: #### 1 9963512, 65737838, 3187126, 7865898, 7622874, 9863655, 2065277, 48737325 ####[address] [place] [address] Protein [Mass/Vol] 6.9 g/dL Normal 6.0-7.8 [facility] Comment on above: Performed By: #### 1 9351865, 59033857, 7719620, 1064535, 2630666, 6396491, 0992872, 93592387 ####[address] [place] [address] Magnesiumon 04-11-2023 Magnesium [Mass/Vol] 2.0 mg/dL Normal 1.3-2.4 [facility] Comment on above: Performed By: #### 1 5750419, 75557731, 1036639, 0389969, 2517370, 9754462, 6429812, 72709289 ####[address] [place] [address] Monitor Recordon 04-11-2023 Monitor Record [id number]#1.00TIFF Normal [facility] PT & PTTon 04-11-2023 aPTT Coag (PPP) [Time] 36.3 second(s) Normal 25.1-36.5 [facility] Comment on above: Result Comment: Para [...] the same coagulation reagent and instrumentation as [facility]. Currently there are no coagulation studies available worldwide for children to 14 days, and no normal ranges. Heparin therapeutic range (represented by Anti-Factor Xa activity of 0.2 - 0.4 U/mL) corresponds to PTT of 56.6 - 109.0 sec. Performed By: #### 1 0630848, 66352986, 6038008, 2210376, 3241787, 4212724, 8131509, 18236630 ####[facility] [address] [place] [address] INR Coag (PPP) [Relative time] 1.2 {INR} Invalid Interpretation Code [facility] Comment on above: Result Comment: INR results are specifically intended to assess patients stabilized on long-term Anticoagulation therapy suggested INR?s ?Less Intensive Anticoagulation? 2.0 ? 3.0 Conventional Range 3.0 ? 4.5 Performed By: #### 1 4798946, 09672515, 0052299, 5323645, 1428064, 2416139, 9172168, 52595588 ####[facility] [address] [place] [address] PT Coag (PPP) [Time] 13.9 second(s) High 9.4-12.5 [facility] Comment on above: Result Comment: 15 [...] the same coagulation reagent and instrumentation as [facility]. Currently there are no coagulation studies available worldwide for children to 14 days, and no normal ranges. Performed By: #### 1 6059008, 46899380, 8036573, 6373723, 6754912, 3404900, 0442544, 22515791 ####[facility] [address] [place] [address] Troponin 0 Hr.on 04-11-2023 Troponin I.cardiac [Mass/Vol] 8.50 pg/mL Low 15.90-38.40 [facility] Comment on above: Result Comment: The 95% CI (Confidence Interval) PPV (Positive Predictive Value) for myocardial infarction in females is 38 pg/mL, in males 51 pg/mL. The results should be used in conjunction with clinical conditions of myocardial infarction. (Access High Sensitivity Troponin I Instructions For Use, [facility] [place], January 2018) Performed By: #### 1 4304501, 88699989, 4533741, 0832175, 4501668, 5162680, 6170928, 70407318 ####[facility] [address] [place] [address] UA With Cult Reflexon 2022 Bilirubin Ql (U) Negative Normal Negative [facility] Comment on above: Performed By: #### 1 4669443 ####[facility] [address] [place] [address] Clarity (U) CLEAR Normal Clear [facility] Comment on above: Performed By: #### 1 1872414 ####[facility] [address] [place] [address] Color (U) YELLOW Normal Yellow [facility] Comment on above: Performed By: #### 1 1131283 ####[address] [address] Epithelial cells.squamous LM.HPF (Urine sed) [#/Area] 0-2 Normal 0-2 [facility] Comment on above: Performed By: #### 1 2971414 ####[facility] [address] [place] [address] Glucose Test strip (U) [Mass/Vol] Negative Normal Negative [facility] Comment on above: Performed By: #### 1 1039834 ####[address] [address] Hemoglobin Ql (U) Negative Normal Negative [facility] Comment on above: Performed By: #### 1 5953312 ####[address] [address] Ketones (U) [Mass/Vol] Negative Normal Negative [facility] Comment on above: Performed By: #### 1 1414318 ####[address] [address] Retreat.plasma/Lithi um.RBC (Bld) [Mass ratio] 0-3 Normal 0-3 [facility] Comment on above: Performed By: #### 1 2166660 ####[address] [place] [address] Nitrite Ql (U) Negative Normal Negative [facility] Comment on above: Performed By: #### 1 6172524 ####[address] [place] [address] pH (U) 6.0 [pH] Invalid Interpretation Code 5.0-9.0 [facility] Comment on above: Performed By: #### 1 1211520 ####[address] [address] Protein (U) [Mass/Vol] Negative Normal Negative [facility] Comment on above: Performed By: #### 1 8425082 ####[facility] [address] [place] [address] Specific gravity (U) [Rel density] 1.015 Invalid Interpretation Code 1.005-1.030 [facility] Comment on above: Performed By: #### 1 0160418 ####[facility] [address] [place] [address] Type of Urine collection method Clean Catch Normal [facility] Comment on above: Performed By: #### 1 9007443 ####[facility] [address] [place] [address] Urobilinogen Qn (U) 0.2 {Nasra'U}/dL Normal 0.0-1.0 [facility] Comment on above: Performed By: #### 1 5316291 ####[facility] [address] [place] [address] WBC Auto Ql (U) Negative Normal Negative [facility] Comment on above: Performed By: #### 1 5399113 ####[facility] [address] [place] [address] WBC LM.HPF (Urine sed) [#/Area] 0-5 Normal 0-5 [facility] Comment on above: Performed By: #### 1 7151660 ####[facility] [address] [place] [address] URINALYSISOrdered By: Matthew Hernandez on 04-11-2023 Bilirubin [...] AM) Normal Negative FT UA Auto SS Ketones (U) [Mass/Vol] Negative (04/11/23 11:25 AM) Normal Negative FT UA Auto SS Retreat.plasma/Lithi um.RBC (Bld) [Mass ratio] 0-3 /HPF Normal 0-3/HPF FT UA Auto SS Nitrite Ql (U) Negative (04/11/23 11:25 AM) Normal Negative FT UA Auto SS pH (U) 6.0 *NA* (04/11/23 11:25 AM) Invalid Interpretation Code 5.0 - 9.0 [facility] UA Auto SS Protein (U) [Mass/Vol] Negative (04/11/23 11:25 AM) Normal Negative FT UA Auto SS Specific gravity (U) [Rel density] 1.015 *NA* (04/11/23 11:25 AM) Invalid Interpretation Code 1.005 - 1.030 [facility] UA Auto SS UA Spec Desc Clean Catch (04/11/23 11:25 AM) Normal [facility] UA Auto SS Urobilinogen Qn (U) 0.3312012 {Nasra'U}/dL Normal 0.0 - 1.0 EU/dL FT UA Auto SS WBC Auto Ql (U) Negative (04/11/23 11:25 AM) Normal Negative [facility] UA Auto SS WBC LM.HPF (Urine sed) [#/Area] 0-5 /HPF Normal 0-5/HPF [facility] UA Auto SS XR Chest Single Viewon [...] GREGG Technologist: ZACHERY, Technical Comments Radiation Dose: Kar in mGy = na DAP = na Normal [facility] eGFRon 04-11-2023 GFR/1.73 sq M.predicted among non-blacks MDRD (S/P/Bld) [Vol rate/Area] 75 mL/min/1.73 m2 Normal >=59 [facility] Comment on above: Order Comment: Order added by Discern Expert. Result Comment: Business Solutions Director lin kidney disease could be indicated at eGFR's of less than 60 mL/min/1.73m2. Kidney failure is indicated at less than 15 mL/min/1.73m2. Performed By: #### 1 9389810, 89839006, 4872312, 7668532, 1505213, 2357359, 7852852, 84754874 ####[facility] [address] [place] [address] CNOVon 01-14-2023 [facility] ---- JORDI FRANCO ([id number]) 1940 HVI Xcld* Date Time Provider Department 01/14/23 1:30 PM BARBARA WARNER [facility] During your visit today, we recorded the following information about you: Pulse Blood pressure Weight Height 95/minute 120/74 90.3 kg 1.778 m Barbara Warner APRN.BENJAMIN, DNP 01/14/2023 1:50 PM Signed [facility] Department of Cardiovascular Medicine SECTION OF CLINICAL CARDIOLOGY OUTPATIENT VISIT DATE January 14, 2023 OUTPATIENT VISIT TYPE ESTABLISHED PRIMARY CARE PHYSICIAN: Raul Dumont [address] [place] [address] REFERRING PHYSICIAN: Hugo Solano [address] [facility] [address] CHIEF COMPLAINT: Established Patient and Hospital Follow [...] cardiac surgery 12/04/2022 Cardiomegaly 09/22/2012 borderline Dyslipidemia [place] (hard of hearing) Hypertension Mitral regurgitation Pinched nerve in neck Spinal stenosis Stroke (HCC) 06/07/2007 TIA (transient ischemic attack) 06/07/2007 [facility] PAST SURGICAL HISTORY Procedure Laterality Date ATRIAL FIBRILLATION/FLUTTE R ABLATION 2001,2003, 2012 - Radiofrequency ablation for atrial fibrillation BACK SURGERY HX Disc Surgery FOOT/TOES SURGERY PROC UNLISTED 02/05/2010 Performed by CHAITANYA WATKINS at [facility] [place] 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 mag tcyqm-F7-ozaetjch rt xt 500-3,000-150 mg-unit-mg tab Take by mouth. (Patient not taking: Reported on 12/16/2022) lysine 500 mg tab Take by mouth. (Patient not taking: Reported on 12/16/2022) Vitamin E Acetate, Bulk, 12 (more content not included)... Normal [facility] EKGon 01-14-2023 Electrocardiogram Systolic BP : 120 mmHg Diastolic BP : 74 mmHg Ventricular Rate : 95 BPM Atrial Rate : 95 BPM P-R Interval : 166 ms QRS Duration : 98 ms Q-T Interval : 366 ms QTC Calculation(Bazett) : 459 ms Calculated P [place] : 10 degrees Calculated R [place] : -48 degrees Calculated T [place] : 32 degrees NORMAL SINUS RHYTHM LEFT AXIS DEVIATION ABNORMAL ECG Confirmed by SAVANNA ZHANG MD ([id number]) on 12/01/2023 9:36:11 PM NAME : JORDI FRANCO PID : [id number] : 1940 Gender : Male Race : ORD : Procedure Date : Jan 14 2023 13:15:35 Edit Date : Dec 01 2023 21:36:14 Diagnosis: NORMAL SINUS RHYTHM LEFT AXIS DEVIATION ABNORMAL ECG Confirmed by SAVANNA ZHANG MD ([id number]) on 12/01/2023 9:36:11 PM Test Reason : Location : 556 : CARD Overread By : SAVANNA ZHANG MD Edited By : SAVANNA ZHANG MD Referred By : HUGO SOLANO Acquired by : , [facility] XR CHEST 2V FRONTAL/LATon [facility] Laboratory - Microbiology an d Antimicrobial susceptibilityon 12-03-2022 S. aureus and MRSA panel TINO+probe (Nose) Negative Negative [facility] CREATININE, BLOOD (POC)on Creatinine [Mass/Vol] 1.20 mg/dL 0.7 - 1.4 mg/dL [facility] eGFR (POCT) [facility] CTA CHEST (GATED) W IVCONon 12-01-2022 [facility] ECHO TRANSESOPHAGEALon 10-19 [facility] LVEF ECHO TRANSESOPHAGEALon 10-19-2022 LV Ejection Fraction 55 % [facility] METHYLMALONIC ACID (MMA)on 0 12-31-2021 Methylmalonic Acid, Serum 198 nmol/L Normal 0-378 [facility] Comment on above: Performed By: #### M MA2 #### [facility] [address] [address] [address] Bryn Santo MR head/brain wo [facility] 12-30 MR head/brain wo [facility] [place] [place] [address] MRI Report Signed Patient: Jordi Franco MR#: [id number] : 1940 Acct:[id number] Age/Sex: 81 / M ADM Date: 12/30/21 Loc: [facility] Room: Type: [facility] Attending Dr: Raghav Hubbard MD Copies to: [...] Dillon Flores M.D.12/30/2021 10:26 AM Dictation Location: [place] [address] Transcribed By: [facility] 12/30/21 1026 Dictated By: Dillon Flores II, MD 12/30/21 1023 Signed By: 12/30/21 1026 Normal [facility] TSHon 12-25-2021 TSH 1.025 uIU/mL Normal 0.358-3.740 [facility] Comment on above: Performed By: #### T #### [facility] [address] [place] [address] Dr. Bryn Santo VIT B12 AND FOLATEon 022 Cobalamin (Vitamin B12) [Mass/Vol] 1345.0 pg/mL Critically high 193.0-986.0 [facility] Comment on above: Performed By: #### B 12FOL #### [facility] [address] [place], [place] [address] Dr. Bryn Santo FOLATE 21.70 ng/mL Normal 8.60-58.90 [facility] Comment on above: Performed By: #### B 12FOL #### [facility] [address] [place], [place] [address] chest wo conon 06-27-2021 CT chest wo con [facility] [place] [address] [place] [address] CT Scan Report Signed Patient: Jordi Franco MR#: [id number] : 1940 Acct:[id number] Age/Sex: 80 / M ADM Date: 06/27/21 Loc: ER Room: Type: [facility] ER Attending Dr: Ordering Provider: Kate [...] Td Garcia M.D.06/27/2021 8:35 PM Dictation Location: RADIO-PC-03 Transcribed By: MONIK 06/27/212034 Dictated By: Td Garcia DO 06/27/212025 Signed By: 06/27/212034 [facility] XR hip LT min 2V(w/wo pelvis )*on 06-27-2021 XR hip LT min 2V(w/wo pelvis)* [facility] [place] [address] XRay Report Signed Patient: Jordi Franco MR#: [id number] : 1940 Acct:[id number] Age/Sex: 80 / M ADM Date: 06/27/21 [...] Td Garcia M.D.06/27/2021 7:40 PM Dictation Location: RADIO--03 Transcribed By: [facility] 06/27/211939 Dictated By: Td Garcia DO 06/27/211939 Signed By: 06/27/211939 [facility] NR MR L-SPINE WO/W CONTRASTo n 07-26-2019 NR MR L-SPINE WO/W CONTRAST Patient Name: JORDI FRANCO STUDY: MR L-SPINE WO/W CONTRAST; 07/26/2019 1:19 pm INDICATION: Other spondylosis with radiculopathy, lumbar region. COMPARISON: None. ACCESSION NUMBER(S): [id number] ORDERING CLINICIAN: MARY MOLINA TECHNIQUE: The lumbar [...] changes as described The examination was interpreted [facility] Electronically signed by: PAULINE PADILLA MD Normal [facility] NR MRI CERVICAL WOon 020 NR MRI CERVICAL WO Patient Name: JORDI FRANCO STUDY: MRI CERVICAL WO; 07/26/2019 1:19 pm INDICATION: Other spondylosis with radiculopathy, lumbar region. COMPARISON: None. ACCESSION NUMBER(S): [id number] ORDERING CLINICIAN: MARY MOLINA TECHNIQUE: Sagittal and [...] foraminal narrowing. THIS EXAMINATION WAS INTERPRETED AT [facility] Electronically signed by: PAULINE PADILLA MD Normal [facility] BASIC METABOLIC PANELon 07-08 Anion gap [Moles/Vol] 11 mmol/L Normal 10 - 20 [facility] Comment on above: Performed By: #### B MP #### [facility] [address] [place] [address] Calcium [Mass/Vol] 9.5 mg/dL Normal 8.6 - 10.3 [facility] Comment on above: Performed By: #### B MP #### [facility] [address] [place] [address] Chloride [Moles/Vol] 102 mmol/L Normal 98 - 107 [facility] Comment on above: Performed By: #### B MP #### [address] [address] Creatinine [Mass/Vol] 1.08 mg/dL Normal 0.50 - 1.30 [facility] Comment on above: Performed By: #### B MP #### [address] [address] GFR- AM. >60 Normal >60 [facility] Comment on above: Result Comment: CALC ULATIONS OF ESTIMATED GFR ARE PERFORMED USING THE MDRD STUDY EQUATION FOR THE IDMS-TRACEABLE CREATININE METHODS. CLIN CHEM 2007;53:766-72 Performed By: #### B MP #### [address] [address] GFR-NON AM. >60 Normal >60 [facility] Comment on above: Performed By: #### B MP #### [address] [address] Glucose [Mass/Vol] 122 mg/dL High 74 - 99 [facility] Comment on above: Performed By: #### B MP #### [address] [address] HCO3 (Bld) [Moles/Vol] 31 mmol/L Normal 21 - 32 [facility] Comment on above: Performed By: #### B MP #### [address] [address] Potassium [Moles/Vol] 4.6 mmol/L Normal 3.5 - 5.3 [facility] Comment on above: Performed By: #### B MP #### [address] [address] Sodium [Moles/Vol] 139 mmol/L Normal 136 - 145 [facility] Comment on above: Performed By: #### B MP #### [address] [address] Urea nitrogen [Mass/Vol] 19 mg/dL Normal 6 - 23 [facility] Comment on above: Performed By: #### B MP #### [address] [place] [address] HGB + HCTon 07-21-2019 Hematocrit (Bld) [Volume fraction] 45.4 % Normal 41.0 - 52.0 [facility] Comment on above: Performed By: #### H H #### [facility] [address] [place] [address] Hemoglobin (Bld) [Mass/Vol] 13.9 g/dL Normal 13.5 - 17.5 [facility] Comment on above: Performed By: #### H H #### [facility] [address] [place] [address] Vital Signs Date Time Vital Sign Value Performing Clinician Facility 11-04-2023 14:49-0400 Body height 176.53 cm [facility] 11-04-2023 14:49-0400 Body mass index (BMI) [Ratio] 28.8 kg/m2 [facility] 11-04-2023 14:49-0400 Body temperature 98.4 [degF] [facility] 11-04-2023 14:49-0400 Body weight 89.81 kg [facility] 11-04-2023 14:49-0400 Heart rate 62 /min [facility] 11-04-2023 14:49-0400 Respiratory rate 18 /min [facility] 11-04-2023 14:49-0400 SaO2% (BldA) [Mass fraction] 97 % [facility] 06-30-2023 13:35-0500 Body height 177.8 cm Clara Cobian Other [employer] [facility] [employer] Other 06-30-2023 13:35-0500 Body mass index (BMI) [Ratio] 28.75 kg/m2 Clara Cobian Other [employer] Other 06-30-2023 13:35-0500 Body temperature 97.5 [degF] Clara Cobian Other [employer] Other 06-30-2023 13:35-0500 Body weight 90.9 kg Clara Cobian Other [employer] Other 06-30-2023 13:35-0500 Diastolic blood pressure 74 mm[Hg] Clara Cobian Other [employer] Other 06-30-2023 13:35-0500 Respiratory rate 20 /min Clara Cobian Other [employer] Other 06-30-2023 13:35-0500 SaO2% (BldA) [Mass fraction] 97 % Clara Cobian Other [employer] Other 06-30-2023 13:35-0500 Systolic blood pressure 124 mm[Hg] Clara Cobian Other [employer] Other 05-03-2023 11:10-0500 Blood Pressure Location MP MICHELLE [facility] 05-03-2023 11:10-0500 Diastolic blood pressure 60 mm[Hg] [facility] 05-03-2023 11:10-0500 Heart rate 82 /min [facility] 05-03-2023 11:10-0500 Respiratory rate 16 /min [facility] 05-03-2023 11:10-0500 SaO2% (BldA) [Mass fraction] 94 % MP [facility] 05-03-2023 11:10-0500 Systolic blood pressure 130 mm[Hg] MP [facility] 04-22-2023 14:20-0500 Body height 177.8 cm Lisa Archibald Other [employer] Other 04-22-2023 14:20-0500 Body mass index (BMI) [Ratio] 28.98 kg/m2 Lisa Archibald Other [employer] Other 04-22-2023 14:20-0500 Body temperature 98.4 [degF] Lisa Archibald Other [employer] Other 04-22-2023 14:20-0500 Body weight 91.63 kg Lisa Archibald Other [employer] Other 04-22-2023 14:20-0500 Diastolic blood pressure 73 mm[Hg] Lisa Archibald Other [employer] Other 04-22-2023 14:20-0500 Respiratory rate 18 /min Lisa Archibald Other [employer] Other 04-22-2023 14:20-0500 SaO2% (BldA) [Mass fraction] 97 % Lisa Archibald Other [employer] Other 04-22-2023 14:20-0500 Systolic blood pressure 136 mm[Hg] Lisa Archibald Other [employer] Other 04-11-2023 12:31-0500 Diastolic blood pressure 88 mm[Hg] [facility] 04-11-2023 12:31-0500 Heart rate 101 /min [facility] 04-11-2023 12:31-0500 Mean blood pressure 108 mm[Hg] [facility] 04-11-2023 12:31-0500 Respiratory rate 55 /min [facility] 04-11-2023 12:31-0500 SaO2% (BldA) [Mass fraction] 95 % [facility] 04-11-2023 12:31-0500 Systolic blood pressure 147 mm[Hg] [facility] 04-11-2023 12:15-0500 Hourly Rounding [facility] 04-11-2023 12:00-0500 Diastolic blood pressure 77 mm[Hg] [facility] 04-11-2023 12:00-0500 Heart rate 97 /min [facility] 04-11-2023 12:00-0500 Mean blood pressure 102 mm[Hg] [facility] 04-11-2023 12:00-0500 Respiratory rate 67 /min [facility] 04-11-2023 12:00-0500 SaO2% (BldA) [Mass fraction] 94 % [facility] 04-11-2023 12:00-0500 Systolic blood pressure 152 mm[Hg] [facility] 04-11-2023 11:00-0500 Diastolic blood pressure 86 mm[Hg] [facility] 04-11-2023 11:00-0500 Heart rate 93 /min [facility] 04-11-2023 11:00-0500 Mean blood pressure 107 mm[Hg] [facility] 04-11-2023 11:00-0500 Respiratory rate 13 /min [facility] 04-11-2023 11:00-0500 Systolic blood pressure 149 mm[Hg] [facility] 04-11-2023 10:15-0500 gluc 100 mg/dL [facility] 04-11-2023 10:15-0500 gluc [facility] 04-11-2023 09:46-0500 Body temperature 97.7 [degF] [facility] 04-11-2023 09:46-0500 Heart rate 104 /min [facility] 04-11-2023 09:46-0500 Respiratory rate 20 /min [facility] 02-16-2023 11:25-0400 Blood Pressure Location IVONNEFERNANDEZ CASTELLONRY [facility] 02-16-2023 11:25-0400 Diastolic blood pressure 76 mm[Hg] IVONNE CHANTEL [facility] 02-16-2023 11:25-0400 Heart rate 68 /min IVONNE CHANTEL [facility] 02-16-2023 11:25-0400 Respiratory rate 16 /min IVONNE CHANTEL [facility] 02-16-2023 11:25-0400 Systolic blood pressure 134 mm[Hg] IVONNE CHANTEL [facility] 01-14-2023 13:10-0400 Body height 177.8 cm Barbara Warner APRN.BENJAMIN DNP Work Phone: [facility] 01-14-2023 13:10-0400 Body weight 90.27 kg Barbara Warner APRN.BENJAMIN, DNP Work Phone: [facility] 01-14-2023 13:10-0400 Diastolic blood pressure 74 mm[Hg] Barbara Warner APRN.BENJAMIN, DNP Work Phone: [facility] 01-14-2023 13:10-0400 Heart rate 95 /min Barbara Warner APRN.BENJAMIN, DNP Work Phone: [facility] 01-14-2023 13:10-0400 Systolic blood pressure 120 mm[Hg] Barbara Kent BLOCK TRADER.REPAIRER HELPER, DNP Work Phone: [facility] 12-16-2022 13:28-0400 Body height 177.8 cm Mary Jo Laffey BLOCK TRADER.REPAIRER HELPER Work Phone: [facility] 12-16-2022 13:28-0400 Body temperature 98.4 [degF] Mary Jo Laffey BLOCK TRADER.REPAIRER HELPER Work Phone: [facility] 12-16-2022 13:28-0400 Body weight 87.82 kg Mary Jo Laffey BLOCK TRADER.REPAIRER HELPER Work Phone: [facility] 12-16-2022 13:28-0400 Diastolic blood pressure 72 mm[Hg] Mary Jo Laffey BLOCK TRADER.REPAIRER HELPER Work Phone: [facility] 12-16-2022 13:28-0400 Heart rate 76 /min Mary Jo Laffey BLOCK TRADER.REPAIRER HELPER Work Phone: [facility] 12-16-2022 13:28-0400 SaO2% (BldA) [Mass fraction] 97 % Mary Jo Laffey BLOCK TRADER.REPAIRER HELPER Work Phone: [facility] 12-16-2022 13:28-0400 Systolic blood pressure 102 mm[Hg] Mary Jo Laffey BLOCK TRADER.[facility] Work Phone: [facility] 12-03-2022 10:04-0400 Body height 177.8 cm [facility] Work Phone: [facility] 12-03-2022 10:04-0400 Body temperature 99 [degF] [facility] Work Phone: [facility] 12-03-2022 10:04-0400 Body weight 91.63 kg [facility] Work Phone: [facility] 12-03-2022 10:04-0400 Diastolic blood pressure 71 mm[Hg] [facility] Work Phone: [facility] 12-03-2022 10:04-0400 Heart rate 69 /min [facility] Work Phone: [facility] 12-03-2022 10:04-0400 Respiratory rate 14 /min [facility] Work Phone: [facility] 12-03-2022 10:04-0400 SaO2% (BldA) [Mass fraction] 97 % [facility] Work Phone: [facility] 12-03-2022 10:04-0400 Systolic blood pressure 119 mm[Hg] [facility] Work Phone: [facility] 10-19-2022 15:15-0400 Diastolic blood pressure 60 mm[Hg] Savanna Zhang MD Work Phone: [facility] 10-19-2022 15:15-0400 Heart rate 60 /min Savanna Zhang MD Work Phone: [facility] 10-19-2022 15:15-0400 Respiratory rate 38 /min Savanna Zhang MD Work Phone: [facility] 10-19-2022 15:15-0400 SaO2% (BldA) [Mass fraction] 92 % Savanna Zhang MD Work Phone: [facility] 10-19-2022 15:15-0400 Systolic blood pressure 118 mm[Hg] Savanna Zhang MD Work Phone: [facility] 10-19-2022 12:15-0400 Body temperature 98.4 [degF] Savanna Zhang MD Work Phone: [facility] 10-05-2022 08:49-0400 Body height 177.8 cm Savanna Zhang MD Work Phone: [facility] 10-05-2022 08:49-0400 Body weight 93.08 kg Savanna Zhang MD Work Phone: [facility] 10-05-2022 08:49-0400 Diastolic blood pressure 62 mm[Hg] Savanna Zhang MD Work Phone: [facility] 10-05-2022 08:49-0400 Heart rate 62 /min Savanna Zhang MD Work Phone: [facility] 10-05-2022 08:49-0400 Systolic blood pressure 130 mm[Hg] Savanna Zhang MD Work Phone: [facility] 07-20-2022 14:01-0500 Blood Pressure Location ISABELA SIDELL [facility] 07-20-2022 14:01-0500 Diastolic blood pressure 72 mm[Hg] ISABELA SIDELL [facility] 07-20-2022 14:01-0500 Heart rate 56 /min ISABELA SIDELL [facility] 07-20-2022 14:01-0500 SaO2% (BldA) [Mass fraction] 94 % ISABELA SIDELL [facility] 07-20-2022 14:01-0500 Systolic blood pressure 140 mm[Hg] ISABELA SIDELL [facility] 04-22-2022 13:10-0500 Blood Pressure Location Janel Klonk [facility] 04-22-2022 13:10-0500 Heart rate 134 /min Janel Klonk [facility] 04-22-2022 13:10-0500 Respiratory rate 74 /min Janel Klonk [facility] 04-22-2022 13:10-0500 SaO2% (BldA) [Mass fraction] 96 % Janel Klonk [facility] 04-02-2022 07:57-0400 Body height 175.3 cm Savanna Zhang MD Work Phone: [facility] 04-02-2022 07:57-0400 Body weight 87.09 kg Savanna Zhang MD Work Phone: [facility] 04-02-2022 07:57-0400 Diastolic blood pressure 68 mm[Hg] Savanna Zhang MD Work Phone: [facility] 04-02-2022 07:57-0400 Heart rate 74 /min Savanna Zhang MD Work Phone: [facility] 04-02-2022 07:57-0400 Systolic blood pressure 136 mm[Hg] Savanna Zhang MD Work Phone: [facility] Encounters Encounter Date Encounter Type Care Provider Facility Start: 07-19-2024 End: 07-19-2024 ambulatory ERNESTINA HAWKINS Not Available Comment on above: Parkinson's disease with dyskinesia and fluctuating manifestations (CMS/HCC) (Primary Dx); Imbalance; Falls, subsequent encounter Start: 07-19-2024 End: 07-19-2024 Bamboo flowsheet Ernestina Hawkins PT Work Phone: [facility] Start: 07-19-2024 End: 07-19-2024 Bamboo flowsheet Ernestina Hawkins PT Work Phone: [facility] Start: 06-22-2024 End: 06-22-2024 Office outpatient visit 15 minutes Paradise Tyler MD Work Phone: [facility] Comment on above: Melanocytic nevi of trunk (Primary Dx); Angioma of skin; Lentigines; Seborrheic keratosis; History of malignant melanoma of skin Start: 06-22-2024 End: 06-22-2024 ambulatory PARADISE TYLER Not Available Start: 06-22-2024 End: 06-22-2024 Bamboo flowsbecky Tyler MD Work Phone: [facility] Start: 06-22-2024 End: 06-22-2024 Bamboo flowsbecky Tyler MD Work Phone: [facility] Start: 05-10-2024 End: 05-10-2024 ambulatory CHAITANYA WATKINS Facility:[facility] Start: 05-10-2024 End: 05-10-2024 Patient encounter procedure Chaitanya ESCOBEDOM Work Phone: Orthopaedics Comment on above: Onychomycosis (Prima ry Dx); Pain in toes of both feet Start: 05-09-2024 ambulatory Raul Martinez y:[facility] Start: 03-09-2024 End: 03-10-2024 Refill Floyd Spaulding MD Work Phone: Cardiology Comment on above: Refill Request Start: 02-22-2024 End: 02-22-2024 ambulatory IVONNE Hernandez CHANTEL Facility:[facility] Start: 02-22-2024 End: 02-22-2024 Patient encounter procedure IVONNE GRANT [facility] Start: 02-17-2024 End: 02-17-2024 Bamboo flowsheet Rebekah A Felter BLOCK TRADER-REPAIRER HELPER Work Phone: [facility] Start: 02-17-2024 End: 02-17-2024 Bamboo flowsheet Rebekah A Felter BLOCK TRADER-REPAIRER HELPER Work Phone: [facility] Start: 02-17-2024 End: 02-17-2024 Office outpatient visit 15 minutes Rebekah A Felter BLOCK TRADER-REPAIRER HELPER Work Phone: [facility] Comment on above: Neoplasm of skin Start: 02-17-2024 End: 02-17-2024 ambulatory REBEKAH A FELTER Not Available Start: 02-08-2024 End: 02-08-2024 ambulatory CHAITANYA WATKINS Facility:[facility] Start: 02-08-2024 End: 02-08-2024 Patient encounter procedure Chaitanya Watkins DPM Work Phone: Orthopaedics Comment on above: Onychomycosis (Prima ry Dx); Pain in toes of both feet Start: 12-27-2023 End: 12-27-2023 ambulatory PARADISE TYLER Not Available Start: 12-06-2023 End: 12-07-2023 ambulatory RAUL DUMONT [facility] Start: 11-09-2023 Telephone encounter Floyd martin MD Work Phone: Cardiology Comment on above: Medication Problem; Patient Question Start: 11-04-2023 End: 11-04-2023 ambulatory [facility] Work Phone: Start: 11-04-2023 End: 11-04-2023 Patient encounter procedure [facility] Work Phone: Start: 11-03-2023 End: 11-03-2023 ambulatory CHAITANYA WATKINS Facility:[facility] Start: 11-03-2023 End: 11-03-2023 Patient encounter procedure Chaitanya ESCOBEDOM Work Phone: [...] cost effective.) Start: 09-09-2023 End: 09-09-2023 ambulatory ERNESTINA HAWKINS Not Available Start: 08-05-2023 End: 08-05-2023 ambulatory CHAITANYA WATKINS Facility:[facility] Start: 08-05-2023 End: 08-05-2023 Patient encounter procedure Chaitanya ESCOBEDOM Work Phone: Orthopaedics Comment on above: Onychomycosis (Prima ry Dx); Pain in toes of both feet Start: 07-08-2023 Refill Barbara rabago APRN.REPAIRER HELPER, DNP Work Phone: Cardiology Comment on above: Refill Request Start: 07-07-2023 Telephone encounter Barbara Warner APRN.BENJAMIN, RAMÓN Work Phone: Cardiology Comment on above: Medication Question Start: 06-30-2023 End: 06-30-2023 ambulatory Clara Cobian Other [employer] Other Start: 06-30-2023 Office outpatient vi sit 10 minutes Clara Cobian [facility] Start: 06-04-2023 End: 06-04-2023 ambulatory FLOYD SPAULDING M.D. Facility:[facility] Start: 05-12-2023 ambulatory Cassie Magy RT(R) Rad iology Comment on above: Radiology XR Start: 05-12-2023 End: 05-12-2023 Patient encounter procedure Cassie Bhatti RT(R) ORTH [facility] Comment on above: Pain in toes of both feet (Primary Dx) Equinus contracture of ankle (Primary Dx); Metatarsalgia of both feet Start: 05-12-2023 End: 05-12-2023 Subsequent hospital visit by physician Sammie Zavala 1 Work Phone: Radiology Comment on above: Pain [R52] Start: 05-05-2023 End: 05-05-2023 Patient encounter procedure Chaitanya ESCOBEDOM Work Phone: Orthopaedics Comment on above: Onychomycosis (Prima ry Dx); Pain in toes of both feet Start: 05-03-2023 End: 05-03-2023 ambulatory MP MARTINEZ Facility:[facility] Start: 05-03-2023 End: 05-03-2023 Patient encounter procedure MP MARTINEZ [facility] [place] Start: 04-22-2023 End: 04-22-2023 ambulatory Lisa Archibald Other [employer] Other Start: 04-22-2023 Office outpatient vi sit 15 minutes Lisa Archibald [facility] Start: 04-11-2023 End: 04-11-2023 Emergency department patient visit Jh Rosario [facility] Start: 02-16-2023 End: 02-16-2023 Patient encounter procedure IVONNE Hernandez CHANTEL [facility] Start: 01-27-2023 End: 01-27-2023 Patient encounter procedure Chaitanya Watkins DPM Work Phone: Orthopaedics Comment on above: Onychomycosis (Prima ry Dx); Pain in toes of both feet Start: 01-25-2023 Refill Savanna Zhang MD Work Phone: Cardiology Start: 01-14-2023 End: 01-14-2023 Patient encounter procedure Barbara Warner APRN.REPAIRER HELPER, DNP Work Phone: [place] [id number] Comment on above: Paroxysmal atrial fi brillation (HCC) (Primary Dx); Nonrheumatic mitral valve regurgitation; Nonrheumatic aortic valve stenosis; Essential hypertension; S/P MVR (mitral valve replacement) Start: 01-14-2023 End: 01-14-2023 ambulatory BARBARA WARNER Facility:[facility] Start: 01-06-2023 ambulatory Zari Cobb RN [facility] Start: 12-16-2022 End: 12-16-2022 Patient encounter procedure Mary Jo Olvera APRN.REPAIRER HELPER Work Phone: Cardiothoracic Comment on above: S/P [...] surgery center Chaitanya Watkins DPM Work Phone: [facility] Start: 12-03-2022 End: 12-03-2022 Admission to [...] Work Phone: Case Management Comment on above: Pharmacoepidemiologist - O ther (Care Continuum Advisor Assessment [...] by physician Savanna Zhang MD Work Phone: [facility] Comment on above: [...] End: 07-20-2022 Patient encounter procedure ISABELA TALBERT [facility] Start: 04-22-2022 End: 04-22-2022 Patient encounter procedure Janel Lou [facility] Start: 04-22-2022 End: 04-22-2022 Well adult monitoring check done Janel oLu [facility] Start: 04-21-2022 End: 04-21-2022 Patient encounter [...] encounter procedure DO Raul Dumont Work Phone: [facility] [address] Start: 12-25-2021 End: 12-26-[address] OSMEL GARCIA Facility: Start: 10-06-2021 Refill Floyd leyva MD Work Phone: Cardiology Comment on above: Refill Request Procedures Date Procedure Procedure Detail Performing Clinician Start: 05-12-2023 Radex foot complete minimum 3 views Chaitanya ESCOBEDOM Work Phone: Start: 01-14-2023 Ecg routine ecg [...] above: Performed By: #### P SAD #### [facility] [address] [place] [address] Dr. Bryn Santo Start: 07-13-2018 Cystoscopy IVONNE ANN Ankle, left Janel Lou Back Surgery Janel [place] Colonoscopy Janel [place] Extraction of cataract El Lou Prostatectomy Janel [place] Plan of Treatment Date Care Activity Detail Author Start: 06-29-2033 Urine microalbumin profile DTaP,Tdap,Td Vaccine (2 - Td or Tdap) [facility] Start: 12-16-2025 DIABETES SCREEN DIABETES SCREEN [facility] Start: 12-16-2025 Diabetes Screening Diabetes Screening [facility] Start: 12-08-2025 DIABETES SCREEN DIABETES SCREEN [facility] Start: 12-01-2025 DIABETES SCREEN DIABETES SCREEN [facility] Start: 04-15-2025 DIABETES SCREEN DIABETES SCREEN [facility] Start: 12-25-2024 End: 12-25-2024 Patient encounter procedure 12/25/2024 1:30 PM EDT Office Visit [facility] [address] [place] [address] Paradise Tyler MD [address] [place] [address] [facility] Start: 08-10-2024 End: 08-10-2024 Patient encounter procedure 08/10/2024 9:45 AM EST Office Visit Orthopaedics [address] [place], [place] [id number] [place], D[place] [address] [place] [address] 3 month nail care Orthopaedics Comment on above: 3 month nail care Start: 07-19-2024 End: 07-19-2024 ambulatory 07/19/2024 4:00 PM EST Evaluation [facility] [address] [place] [address] Ernestina Hawkins, PT [address] [place] [address] Arrived [facility] Comment on above: Arrived Start: 06-22-2024 End: 06-22-2024 Patient encounter procedure [facility] Comment on above: Arrived Start: 05-26-2024 End: 05-26-2024 Patient encounter procedure 05/26/2024 10:30 AM EST Office Visit Cardiology [address] [facility] [address] [place] [phone] Floyd Spaulding MD [address] [facility], [address], [address] [place], [place] [id number] 1 Year Follow uP Of Afib Cardiology Comment on above: 1 Year Follow uP Of Afib Start: 05-10-2024 End: 05-10-2024 Patient encounter procedure 05/10/2024 8:45 AM EST Office Visit Orthopaedics [address] [place] [address] [place] [address] [place] [address] 3 month nail care Orthopaedics Comment on above: 3 month nail care Start: 03-16-2024 End: 03-16-2024 Patient encounter procedure 03/16/2024 9:30 AM EDT Office Visit [facility] [address] [place] [phone] Rebekah Marquez, BLOCK TRADER-REPAIRER HELPER [address] [place] [address] [facility] Start: 02-17-2024 End: 02-17-2024 Patient encounter procedure 02/17/2024 10:20 AM EDT Office Visit [facility] [address] [place] [phone] ErikaRebekah santanaNABIL-REPAIRER HELPER [address] [place] [address] Arrived [facility] Comment on above: Arrived Start: 02-08-2024 End: 02-08-2024 Patient encounter procedure 02/08/2024 11:00 AM EDT Office Visit Orthopaedics [address] [place] [address] Chaitanya Watkins, DPM [address] [place] [address] 3 month nail care Orthopaedics Comment on above: 3 month nail care Start: 02-06-2024 Covid-19 Vaccine ( season) Covid-19 Vaccine ( season) [facility] Start: 02-06-2024 Covid-19 Vaccine ( season) Covid-19 Vaccine ( season) [facility] Start: 02-06-2024 Influenza vaccination [facility] Start: 01-14-2024 DIABETES SCREEN DIABETES SCREEN [facility] Start: 11-03-2023 End: 11-03-2023 Patient encounter procedure 11/03/2023 8:45 AM EDT Office Visit Orthopaedics [address] [place] [address] Chaitanya Watkins, DPM [address] [place] [address] 3 month nail care Orthopaedics Comment on above: 3 month nail care Start: 06-07-2023 Advance Directive Discussion Advance Directive Discussion [facility] Start: 06-07-2023 Behavioral Health Screening Behavioral Health Screening [facility] Start: 06-07-2023 Depression Assessment Depression Assessment [facility] Start: 02-05-2023 Covid-19 Vaccine ( season) Covid-19 Vaccine ( season) [facility] Start: 02-05-2023 Influenza vaccination [facility] Start: 10-01-2022 End: 04-02-2023 Echocardiography ECHO Cardiology Routine Nonrheumatic aortic valve stenosis Expected: 10/01/2022, Expires: 04/02/2023 [facility] Work Phone: Comment on above: Expected: 10/01/2022, Expires: 3 Start: 06-07-2022 ADVANCE DIRECTIVE DISCUSSION ADVANCE DIRECTIVE DISCUSSION [facility] Start: 06-07-2022 DEPRESSION ASSESSMENT DEPRESSION ASSESSMENT [facility] Start: 02-05-2022 Influenza vaccination INFLUENZA (#1) [facility] Start: 06-07-2021 ADVANCE DIRECTIVE DISCUSSION ADVANCE DIRECTIVE DISCUSSION [facility] Start: 06-07-2021 DEPRESSION ASSESSMENT DEPRESSION ASSESSMENT [facility] Start: 04-01-2021 COVID-19 VACCINE (2 - Pfizer series) COVID-19 VACCINE (2 - Pfizer series) [facility] Start: 02-25-2021 COVID-19 VACCINE (2 - Pfizer 3-dose series) COVID-19 VACCINE (2 - Pfizer 3-dose series) [facility] Start: 02-25-2021 COVID-19 VACCINE (2 - Pfizer series) COVID-19 VACCINE (2 - Pfizer series) [facility] Start: 2014 RSV Vaccine (1 - 1-dose 75+ series) RSV Vaccine (1 - 1-dose 75+ series) [facility] Start: 2004 PNEUMOVAX AGE 65 AND OVER WITH 5YR LOOKBACK (#1) PNEUMOVAX AGE 65 AND OVER WITH 5YR LOOKBACK (#1) [facility] Start: 1999 RSV Vaccine (1 - 1-dose 60+ series) RSV Vaccine (1 - 1-dose 60+ series) [facility] Start: 1989 SHINGRIX VACCINE (1 of 2) SHINGRIX VACCINE (1 of 2) [facility] Start: 1958 [facility] Start: 1957 Depression Screening Depression Screening [facility] Start: 1945 PNEUMOCOCCAL: 65+ (1 - PCV) PNEUMOCOCCAL: 65+ (1 - PCV) [facility] End: 10-06-2023 ECG COMPLETE ECG COMPLETE ECG Routine Mitral regurgitation and aortic stenosis 1 Occurrences starting 10/05/2022 until 10/06/2023 [facility] Work Phone: Comment on above: 1 Occurrences starting 10/05/2022 until 10/06/2023 End: 01-15-2024 ECG COMPLETE ECG COMPLETE ECG Routine Paroxysmal atrial fibrillation (HCC) 1 Occurrences starting 01/14/2023 until 01/15/2024 [facility] Work Phone: Comment on above: 1 Occurrences starting 01/14/2023 until 01/15/2024 Ecg routine ecg w/le ast 12 lds w/i&r EKG WITH INTERPRETATION Cardiology Routine Paroxysmal atrial fibrillation (HCC) Ordered: 04/02/2022 [facility] Work Phone: Comment on above: Ordered: 04/02/2022 End: 10-06-2023 ECHO TRANSESOPHAGEAL ECHO TRANSESOPHAGEAL Cardiology Routine Mitral regurgitation and aortic stenosis 1 Occurrences starting 10/05/2022 until 10/06/2023 [facility] Work Phone: Comment on above: 1 Occurrences starting 10/05/2022 until 10/06/2023 Electrocardiogram EKG BIC Routin e 01/14/2023 1:15 PM EDT [facility] Immunizations Immunization Date Immunization Notes Care Provider Joellen porras 04-23-2022 influenza, injectabl e, quadrivalent, preservative free ISABELA TALBERT [facility] 04-23-2022 influenza virus vaccine, unspecified formulation Chaitanya Watkins DPM Work Phone: [facility] 02-04-2021 influenza virus vaccine, unspecified formulation Janel Klonk [facility] Comment on above: [facility] SARS-CoV-2 (COVID-19 ) mRNA BNT-162b2 vax Janel Klonk [facility] Comment on above: Result Comment: [facility] 06-07[facility] SARS-CoV-2 mRNA (tozinameran 5y-11y) vaccine Janel Klonk [facility] 03-12-2020 influenza, injectabl e, quadrivalent, preservative free Janel Klonk [facility] 03-15-2019 influenza virus vaccine, unspecified formulation Janel Klonk [facility] 06-03-2018 zoster vaccine recombinant Janel Klonk [facility] 03-04-2018 influenza virus vaccine, unspecified formulation Janel Klonk [facility] 03-04-2018 zoster vaccine recombinant Janel Klonk [facility] 03-07-2015 zoster vaccine recombinant Janel Klonk [facility] 06-07-2014 pneumococcal conjuga te vaccine, 13 valent Janel Klonk [facility] 06-21-2006 pneumococcal polysaccharide vaccine, 23 valent Janel Klonk [facility] 04-14-2002 pneumococcal polysaccharide vaccine, 23 valent Janel Klonk [facility] Payers Date Payer Category Payer [employer] BCBS [id number] 2016 Unknown ANTHEM ANTHEM ME DICARE SUPPLEMENT [id number] 2016-Present [phone] [address] [place] [address] Indemnity [id number] 2016 Unknown [id number] 2004 Medicare MEDICARE MEDICAR E A AND B [id number] 2004-Present [phone] [place] [address] Medicare [id number] 2004 Medicare [id number] 1959 Medicare [id number] 1959 Unknown [id number] 1939 Unknown [id number] [id number]. [id number] 1939 Unknown [id number] 2.16.840.1.070874.3.579. 2.593 1939 Unknown [id number] 2.16.840.1.231683.3.579. 2.182 1939 Unknown [id number] 2.16.840.1.493966.3.579. 2.727 1939 Unknown [id number] [id number]. 2.727 1939 Unknown [id number] 2.16.840.1.147374.3.579. 2.727 1939 Unknown [id number] 2.16.840.1.133719.3.579. 2.727 1939 Unknown [id number] 2.16.840.1.357673.3.579. 2.1259 1939 Unknown [id number] 2.16.840.1.953794.3.579. 2.1259 1939 Unknown [id number] 2.16.840.1.286214.3.579. 2.9 1939 Unknown [id number] [id number]. 2.1259 1939 Unknown [id number] [id number]. 2.1259 Self-pay Self Pay [id number] Social History Date Type Detail Facility Start: 06-27-2021 End: 12-22-2022 Tobacco smoking status NHIS Never smoked tobacco [facility] Start: 07-08-2020 End: 06-04-2023 Alcohol intake Current non-drinker of alcohol (finding) [facility] Start: 1940 Sex Assigned At Male [facility] Start: 06-15-2014 End: 12-22-2022 Tobacco use and exposure Smokeless tobacco non-user [facility] Start: 02-24-2022 End: 03-06-2022 Exposure to SARS-CoV-2 (event) Unable to assess [facility] Start: 03-23-2022 End: 04-21-2022 Exposure to SARS-CoV-2 (event) Not sure [facility] Tobacco smoking status Never [facility] Start: 12-16-2022 End: 06-22-2024 Sex Assigned At Male [facility] Start: 12-09-2022 History SDOH Financial 5 [facility] Start: 12-09-2022 History SDOH Food Worry 1 [facility] Start: 12-09-2022 History SDOH Transpo rt Med 2 [facility] Start: 12-16-2022 End: 06-22-2024 History of Social function [facility] (I/We) worried wheth er (my/our) food would run out before (I/we) got money to buy more. Never true [facility] In the past 12 month s, was there a time when you were not able to pay the mortgage or rent on time? No [facility] Start: 06-18-2020 Gender identity Identifies as male gender (finding) [facility] Start: 06-18-2020 Sexual orientation Choose not to dis close [facility] Start: 12-27-2023 End: 06-22-2024 Alcoholic beverage intake Lifetime non-drinker (finding) [facility] Start: 1940 Sex assigned at Not on file [facility] Medical Equipment Procedure Code Equipment Code Equipment Original Text Equipment Identifier Dates Subtalar Negro [facility] lant 9mm - [id number] Start: 02-05-2010 Band Cline Ancor e 35mm 35mm Annuloplasty Flexible [place] Chordal Guide - [id number] Start: 12-04-2022 Patch Thk.5mm Johnnie vine Pericardial [id number] Cardiovascular Resilience Durable - [id number] Start: 12-04-2022 Valve Joe-Mariano Perimount Magna Ease 25mm Low Profile Pericardial - [id number] Start: 12-04-2022 Functional Status Date Assessment Result Facility 02-22-2024 Functional Status N/A [facility] 05-03-2023 Functional Status N/A [facility] [place] 04-11-2023 Functional Status N/A [facility] 02-16-2023 Functional Status N/A [facility] 07-20-2022 Functional Status N/[facility] 04-22-2022 Functional Status N/A [facility] Clinical Notes 10-06-2021 to 07-19-2024 Ernestina Hawkins, PT - 07/19/2024 4:00 PM Zaid Tyler MD - 06/22/2024 2:15 PM Chaitanya Hernández DPM - 05/10/2024 9:31 AM ALOK Juarez - 02/17/2024 10:20 AM EDT Note Date & Type Note Facility 07-19-2024 History of Present illness Narrative Images from the original note were not included. Time In: 4:00 pm Time Out: 5:00 pm Supervised Time: 60 Total Time: 60 Evaluation Time: 45 Self long-term management: 15 Visit Number: 1 Chief Complaint: PD, imbalance, falls, gait instability Precautions: none Subjective Mechanism of injury: This patient is well known to me in the past for a variety of issues. His family is requesting a PT evaluation for his most recent issue of falling, balance problems and instability of gait. He fell most recently and hit his head with bruising along his face. Went to ER to clear from a head injury. He lives with his that has dementia and his son, Fabrice. He is cared for by members of his family who are very supportive. He is accompanied today by his son, Acosta. Objective Posture / Appearance: Facial and UE dyskinesia noted during assessment vs tremors. Muscle Strength: Grossly BUEs and LEs 5/5 with static testing Balance: static standing F-, dynamic poor Ambulation: With SBQC (hurrycane) I unless negotiating unlevel surfaces. Ambulating with FWW or 4WW I. Shows dyskinetic movement with lessening AD and spontaneous LOB without AD. Assistive Devices: Has cane, FWW, 4WW at home ADLs: I Extracurricular Activities: likes working outdoors on property Employment: retired PT Assessment: Therapy Diagnosis: PD with dyskinesia, central balance loss with good muscle strength throughout Functional Limitations: Optimal: 79/110 Leaf Size Picker Goals: NA Rehab Potential: NA Plan: No further PT recommended Treatment: Today's session consisted of evaluation and recommendations to pt and caregiver. I advised daily aerobic activity whether on stationary bike or walking with walker. Educated pt on benefits of aerobic conditioning to PD. He has a trike that could be mounted indoors for his use per his son with a frame purchase. In house ambulation short distances can be with SC use but prefer him to use FWW instead at all times for fall prevention to maintain quality of life in his home. He does not like this recommendation but considering his dx and present balance reactions, this is advised unless he is alongside a family member other than his . I do not feel ongoing PT is warranted at this time. Pt and sonAcosta understood recommendations and questions were answered fully regarding his physical conditioning and balance issues. I hereby deem this POC medically necessary. Please sign below and fax back to the number below. Physician Signature: Date: documented in this encounter [facility] 06-22-2024 History of Present illness Narrative Images [...] Treatment: Wide excision by Dr. Mensah at [facility] 06/25/2020 Number of Lymph Nodes Checked: [...] months skin exam documented in this encounter [facility] 05-10-2024 Note HNO ID: [id number] Author: CHAITANYA WATKINS DPM Service: ? Author [...] is current for today. Chaitanya Watkins D.P.M. [facility] 05-10-2024 History of Present illness Narrative [...] Chaitanya Watkins D.P.M. documented in this encounter [facility] 03-09-2024 Telephone encounter Note Pharmacy electronic [...] scheduled for: 05/26/2024 Kim Garcia MA 03/09/2024 [facility] 03-09-2024 Miscellaneous Notes Pharmacy electronic RX [...] 2024 1:58 PM documented in this encounter [facility] 03-09-2024 Telephone encounter Note Prescription Refill [...] Smooth Gaspar March 09, 2024 1:58 PM [facility] 02-23-2024 Note Patient Education Urology Benign [...] Follow these instructions at home: ? Take pzom-xgv-xslmskb and prescription medicines only as told by [...] develop side effec (more content not included)... [facility] 02-17-2024 History of Present illness Narrative [...] month, follow up documented in this encounter [facility] 02-08-2024 Note HNO ID: [id number] Author: CHAITANYA WATKINS DPM Service: ? Author [...] is current for today. Chaitanya Watkins D.P.M. [facility] 02-08-2024 History of Present illness Narrative [...] Chaitanya Watkins D.P.M. documented in this encounter [facility] 11-09-2023 Telephone encounter Note Tried to reach patient by phone. Left message to return call to office Clara Hernandez RN [facility] 11-09-2023 Miscellaneous Notes Tried to reach patient by phone. Left message to return call to office Clara Hernandez RN November 09, 2023 [id number] Patient Name: Jordi Franco Contact Information: [phone] (home) [phone] (cell) Reason For Call: Medication Issue/Question: Xerelto Physician:Floyd Spaulding M.D. Additional Comments: Pt has parkinson's and is falling a lot. Please revisit Rx dosage roberta of falls. Please advise. Is it ok to leave detailed message on voice mail : Yes Requested Prescriptions No prescriptions requested or ordered in this encounter Radha Love documented in this encounter [facility] 11-09-2023 Telephone encounter Note November 09, 2023 [id number] Patient Name: Jordi Franco Contact Information: [phone] (home) [phone] (cell) Reason For Call: Medication Issue/Question: Xerelto Physician:Floyd Spaulding M.D. Additional Comments: Pt has parkinson's and is falling a lot. Please revisit Rx dosage roberta of falls. Please advise. Is it ok to leave detailed message on voice mail : Yes Requested Prescriptions No prescriptions requested or ordered in this encounter Radha Love [facility] 11-03-2023 Note HNO ID: [id number] Author: CHAITANYA WATKINS DPM Service: ? Author [...] is current for today. Chaitanya Watkins D.P.M. [facility] 11-03-2023 History of Present illness Narrative [...] Chaitanya Watkins D.P.M. documented in this encounter [facility] 10-19-2023 Telephone encounter Note Phoned patient and left detailed message that he can call the Lab[facility] and gave number to call to order a duplicate pair of orthotics at cost. Natty hsieh MA [facility] 10-19-2023 Miscellaneous Notes Phoned patient and [...] a prescription for foam inserts for Pt. [facility] office can call Pt if a prescription is sent. documented in this encounter [facility] 10-19-2023 Telephone encounter Note -Pt's daughter [...] call Pt if a prescription is sent. [facility] 08-05-2023 Note HNO ID: [id number] Author: CHAITANYA WATKINS DPM Service: ? Author [...] is current for today. Chaitanya Watkins D.P.M. [facility] 08-05-2023 History of Present illness Narrative [...] for today. Diego WilliamsonPAdrianneM. documented in this encounter [facility] 07-08-2023 Miscellaneous Notes Pended new prescription. Caro Montalvo, JC Patient called states he takes 25 mg Metoprolol once daily. Received fax from [facility] pharmacy for patient's metoprolol. Fax shows different dose from medication list. Spoke with patient who is currently not home. He will have his check the bottle and get back to us. Will need new prescription for metoprolol (see notes on 01/22/2023 had elevated heart rate in the 90's - in the 70's afterwards). Caro Montalvo RN documented in this encounter [facility] 06-30-2023 Evaluation note Encounter Date Diagnosis [...] the ER for worsening symptoms or concerns [employer] Other 12-29-2023 NoteHNO ID: [id number] Author: Floyd Spaulding MD Service: ? Author Type: Physician Type: Progress Notes Filed: 06/04/2023 10:50 AM Note Text: Heart [facility] V[facility] Department of Cardiovascular Medicine OUTPATIENT [...] cardiac surgery 12/04/2022 Cardiomegaly 09/22/2012 borderline Dyslipidemia [place] (hard of hearing) Hypertension Mitral regurgitation Pinched nerve in neck Spinal stenosis Stroke (HCC) 06/07/2007 TIA (transient ischemic attack) 06/07/2007 [facility] PAST SURGICAL HISTORY Procedure Laterality Date ATRIAL FIBRILLATION/FLUTTER ABLATION 2001,2003, 2012 - Radiofrequency ablation for atrial fibrillation BACK SURGERY HX Disc Surgery FOOT/TOES SURGERY PROC UNLISTED 02/05/2010 Performed by CHAITANYA WATKINS at [facility] [place] GASTROCNEMIUS RECESSION 02/05/2010 Performed by CHAITANYA WATKINS at [facility] [place] PAST SURGICAL HISTORY [...] of Onset Ischemic Heart Disease Father 52 [place] other (cancer, lung) Father 56 yrs Asthma [...] BP 134/70 (BP S (more content not included)...[facility] 05-12-2023 History of Present illness Narrative* Chaitanya Watkins DPM - 05/12/2023 9:54 AM EST Images from the original note were not included. PRIMARY SERVICE: [facility] Podiat[facility] SUBJECTIVE: He presents today with his present requesting new custom foot orthotics since his current orthotics are from 2014. He does have some left ankle issues. Medical: PAST MEDICAL HISTORY Diagnosis Date Ankle instability left Aortic stenosis Asthma exercise Atrial fibrillation (HCC) BPH (benign prostatic hyperplasia) Bronchitis Cancer (HCC) basal cell Cardiac insufficiency following cardiac surgery 12/04/2022 Cardiomegaly 09/22/2012 borderline Dyslipidemia [place] (hard of hearing) Hypertension Mitral regurgitation Pinched [...] UNLISTED 02/05/2010 [facility] 02/05/2010 Performed by CHAITANYA WATKINS at [facility] PAST SURGICAL HISTORY OF 2005 endoscopic plantar [...] of SERVICE: 9:54 AM [facility] History of Present illness Narrative* Magalys Shen Cast Tech - 05/12/2023 9:48 AM EST Patient was casted today for Custom Fitted Orthotics. BELA Corona [facility] History of Present illness Narrative* Cassie Bhatti [...] 12, 2023 9:26 AM [facility] History of Present illness Narrative* Chaitanya [...] today. Chaitanya Watkins D.P.M. [facility] Evaluation note* Encounter Date Diagnosis Assessment [...] understanding and is agreeable with treatment plan [employer] Other 11-05-2023 Hospital Discharge instructions Patient Education [...] balance is good. 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 Take jdci-ykw-zlnwgtk and prescription medicines only as told by [...] provider. Document Revised: 04/28/2021 Document Reviewed: 04/28/2021 [employer] Patient Education 2022 [employer]ival. Follow Up Care 04/11/2023 09:38:14 With:Raul DUMONT Address: [address] [facility] [address] [place] [address] [phone] Business (1) When:04/14/2023 12:22:08 Comments:Return to the emergency room if your dizziness recurs or any new symptoms. [facility]09-12-2023 Hospital Discharge instructions Patient Education 02/16/2023 12:02:27 [...] urethra. Follow these instructions at home: Take lojm-qnp-vxzgbxj and prescription medicines only as told by [...] provider. Document Revised: 12/10/2021 Document Reviewed: 12/10/2021 [employer] Patient Education 2022 Nival. Follow Up Care 12/29/2022 10:02:22 With:IVONNE GRANT PA-C, URL Address: [address] [facility] [address] When:Within 1 Year(s) Comments:w/MAGDA [facility] 08-23-2023 History of Present illness Narrative* Chaitanya [...] today. Chaitanya Watkins D.P.M. documented in this encounterOhiohealth Marion General Hospital08-21-2023 Miscellaneous Notes* Telephone Encounter - Savanna Zhang MD - 01/25/2023 12:25 PM EDT Patient called for input on HR 90s, sinus on ECG, no significant sxs, has follow up appt in feb. documented in this encounterOhiohealth Marion General Hospital08-10-2023 NoteHNO ID: [id number] Author: Barbara Warner APRN.REPAIRER HELPER, DNP Service: ? Author Type: Nurse Practitioner Type: Progress Notes Filed: 01/14/2023 1:50 PM Note Text: [facility] Department of Cardiovascular Medicine SECTION OF CLINICAL CARDIOLOGY OUTPATIENT VISIT DATE January 14, 2023 OUTPATIENT VISIT TYPE ESTABLISHED PRIMARY CARE PHYSICIAN: Raul Dumont [address] [place] [address] REFERRING PHYSICIAN: Hugo Solano [address] [facility] [place] [address] CHIEF COMPLAINT: Established Patient and Hospital Follow [...] cardiac surgery 12/04/2022 Cardiomegaly 09/22/2012 borderline Dyslipidemia [place] (hard of hearing) Hypertension Mitral regurgitation Pinched nerve in neck Spinal stenosis Stroke (HCC) 06/07/2007 TIA (transient ischemic attack) 06/07/2007 [facility] PAST SURGICAL HISTORY Procedure Laterality Date ATRIAL FIBRILLATION/FLUTTER ABLATION 2001,2003, 2012 - Radiofrequency ablation for atrial fibrillation BACK SURGERY HX Disc Surgery FOOT/TOES SURGERY PROC UNLISTED 02/05/2010 Performed by CHAITANYA WATKINS at [facility] [place] 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 mag kqmbp-J0-fibmjacz rt xt 500-3,000-150 mg-unit-mg tab Take by [...] unsure of dosage Chew (more content not included)...[facility]08-10-2023 History of Present illness Narrative* Barbara Warner, NABIL.REPAIRER HELPER, DNP - 01/14/2023 1:13 PM EDT Images from the original note were not included. [facility] Department of Cardiovascular Medicine SECTION OF CLINICAL CARDIOLOGY OUTPATIENT VISIT DATE January 14, 2023 OUTPATIENT VISIT TYPE ESTABLISHED PRIMARY CARE PHYSICIAN: Raul Dumont [address] [place] [address] REFERRING PHYSICIAN: Hugo Solano [address] [facility] [place] [address] CHIEF COMPLAINT: Established Patient and Hospital Follow [...] cardiac surgery 12/04/2022 Cardiomegaly 09/22/2012 borderline Dyslipidemia [place] (hard of hearing) Hypertension Mitral regurgitation Pinched nerve in neck Spinal stenosis Stroke (HCC) 06/07/2007 TIA (transient ischemic attack) 06/07/2007 [facility] PAST SURGICAL HISTORY Procedure Laterality Date ATRIAL FIBRILLATION/FLUTTER ABLATION 2001,2003, 2012 - Radiofrequency ablation for atrial fibrillation BACK SURGERY HX Disc Surgery FOOT/TOES SURGERY PROC UNLISTED 02/05/2010 Performed by CHAITANYA WATKINS at [facility] [place] 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 mag oelde-T1-lykntpam rt xt 500-3,000-150 mg-unit-mg tab Take by [...] RV is adjacent to the inferior retrosternum. Funeral Car Driver: [facility] Transcribe Date/Time: Dec 01 2022 5:15P Dictated [...] 60%, appears well compensated. Normal coronaries by [facility] 11/2022, angina free, stable. Paroxsymal [...] others. CONTACT INFORMATION: Barbara Warner APRN.RAMÓN ALEXANDER [facility], [address] [place] [address] documented in this encounterOhiohealth Marion General Hospital08-02-2023 History of Present illness Narrative* Zari Cobb RN - 01/06/2023 10:12 AM EDT QOL Call Tracking Documentation Follow-Up Type: Phone Call Call Attempt: 1st Attempt Call Status: Patient Refused (Requested to be removed from QoL Dashboard) documented in this encounterOhiohealth Marion General Hospital07-12-2023 History of Present illness Narrative* Mary Jo Olvera APRN.CNP - 12/16/2022 1:00 PM EDT Images from the original note were not included. [facility] Department of Cardiovascular Medicine DEPARTMENT [...] cardiac surgery 12/04/2022 Cardiomegaly 09/22/2012 borderline Dyslipidemia [place] (hard of hearing) Hypertension Mitral regurgitation Pinched nerve in neck Spinal stenosis Stroke (HCC) 06/07/2007 TIA (transient ischemic attack) 06/07/2007 [facility] PAST SURGICAL HISTORY Procedure Laterality Date ATRIAL FIBRILLATION/FLUTTER ABLATION 2001,2003, 2012 - Radiofrequency ablation for atrial fibrillation BACK SURGERY HX Disc Surgery FOOT/TOES SURGERY PROC UNLISTED 02/05/2010 Performed by CHAITANYA WATKINS at [facility] [place] GASTROCNEMIUS RECESSION 02/05/2010 Performed by CHAITANYA WATKINS at [facility] [place] PAST SURGICAL HISTORY [...] 1 TABLET BY MOUTH EVERY DAY mag whjha-Z9-idsmzqav rt xt 500-3,000-150 mg-unit-mg tab Take by [...] LEFT AXIS DEVIATION Vent. 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 Call CTS OPD with [...] reviewed Discussed wound care Mary Jo Olvera APRN.REPAIRER HELPER documented in this encounterOhiohealth Marion General Hospital07-12-2023 History of Present illness Narrative* Rhonda [...] 16, 2022 12:53 PM documented in this encounterOhiohealth Marion General Hospital07-07-2023 Miscellaneous Notes* Telephone Encounter - Monique Vera RN - 12/11/2022 8:13 AM EDT [facility] Contact Center Inbound Phone Encounter DATE of SERVICE: 12/11/2022 TIME of SERVICE: 8:13 AM Status: Non-urgent, needs attention Service/Provider: Cardiac Surgery Brain Nieves M.D. Reason for call: Medication Issue/Question/Constipation Contact information: Sabiha (daughter) [phone] cell Resolution: Other [id number] Charge REPAIRER HELPER Jessica Rivera CNP Comments: Daughter calling [facility] [...] of Resolution 8:13 AM documented in this encounterOhiohealth Marion General Hospital07-06-2023 Miscellaneous Notes* Telephone Encounter - Mary Carmen Meier RN - 12/10/2022 11:56 AM EDT Called patient after recent discharge unable to leave voice message. documented in this encounterOhiohealth Marion General Hospital07-02-2023 History of Past illness Narrative* Problem [...] of this encounter (statuses as of 12/10/2022) [facility]-02-[facility] History of Past illness Narrative* Problem [...] of this encounter (statuses as of 12/11/2022) [facility]-02-[facility] History of Past illness Narrative* Problem [...] of this encounter (statuses as of 12/17/2022) [facility]-02-[facility] History of Past illness Narrative* Problem [...] of this encounter (statuses as of 12/18/2022) [facility]-02-[facility] History of Past illness Narrative* Problem [...] of this encounter (statuses as of 01/06/2023) [facility] History of Past illness Narrative* Problem [...] of this encounter (statuses as of 01/14/2023) [facility] History of Past illness Narrative* Problem [...] of this encounter (statuses as of 01/25/2023) [facility] History of Past illness Narrative* Problem [...] of this encounter (statuses as of 01/27/2023) [facility] History of Past illness Narrative* Problem [...] of this encounter (statuses as of 05/05/2023) [facility] History of Past illness Narrative* Problem [...] of this encounter (statuses as of 05/12/2023) [facility] History of Past illness Narrative* Problem [...] of this encounter (statuses as of 05/12/2023) [place] [address]-02-2023 History of Past illness Narrative* Problem Noted [...] hyperglycemia 12/04/2022 07// 023 Overview: History: postop Elevated blood pressure (not hypertension) 02/26/2014 01/14/2023 documented as of this encounter (statuses as of 07/09/2023) [facility] of Past illness Narrative* Problem [...] of this encounter (statuses as of 07/09/2023) [facility] of Past illness Narrative* Problem [...] of this encounter (statuses as of 07/13/2023) [facility] of Past illness Narrative* Problem [...] of this encounter (statuses as of 08/05/2023) [facility]06-29-[facility] History of Present illness Narrative* Brain Nieves MD - 12/03/2022 1:51 PM EDT Images from the original note were not included. [facility] DEPARTMENT OF CARDIAC SURGERY OUTPATIENT VISIT DATE December 03, 2022 OUTPATIENT VISIT SERVICE DATE: 12/03/2022 SERVICE TIME: 1:51 PM PCP: Raul Dumont [address] [place] [address] Referring Physician: Savanna Zhang [address] [facility] [address] [facility] [address] Patient Type: New Visit to Determine Surgery: [...] RV is adjacent to the inferior retrosternum. Funeral Car Driver: ALESSIO Transcribe Date/Time: Dec 01 2022 5:15P [...] record Brain Nieves MD documented in this encounterOhiohealth Marion General Hospital06-29-2023 History of Present illness Narrative* Bindu [...] topic: Bactroban instructions given documented in this encounterOhiohealth Marion General Hospital06-29-2023 History of Present illness Narrative* Jg [...] (HCC) basal cell Cardiomegaly 09/22/2012 borderline Dyslipidemia [place] (hard of hearing) Hypertension Mitral regurgitation Pinched nerve in neck Spinal stenosis Stroke (HCC) 06/07/2007 TIA (transient ischemic attack) 06/07/2007 [facility] PAST SURGICAL HISTORY Procedure Laterality Date ATRIAL FIBRILLATION/FLUTTER ABLATION 2001,2003 BACK SURGERY HX Disc Surgery FOOT/TOES SURGERY PROC UNLISTED 02/05/2010 Performed by CHAITANYA WATKINS at [facility] [place] GASTROCNEMIUS RECESSION 02/05/2010 Performed by CHAITANYA WATKINS at [facility] [place] PAST SURGICAL HISTORY OF endoscopic plantar fasciotomy PAST SURGICAL HISTORY OF 04/24/2013 ablation TUR CRYOSURG REM OF PROSTATE FAMILY HISTORY Problem Relation Age of Onset Ischemic Heart Disease Father 52 [place] other (cancer, lung) Father 56 yrs Asthma [...] 1 TABLET BY MOUTH EVERY DAY mag jscki-X7-yzceyecg rt xt 500-3,000-150 mg-unit-mg tab Take by [...] RV is adjacent to the inferior retrosternum. Funeral Car Driver: PSCB Transcribe Date/Time: Dec 01 2022 5:15P [...] 11:05 AM Pager/Contact #: documented in this encounterOhiohealth Marion General Hospital06-27-2023 Miscellaneous Notes* Telephone Encounter - Moraima [...] Instructions/Restrictions- instructed to be accompanied by adult reefer truck driver at discharge Patient/Family Response Evaluation: Verbalizes understanding Follow Up Plan and Medication: As directed by physician Instruction/Supplemental Material Given: Cardiac catheterization instructions, procedure information, hospital information, hotel information. Instructed By Moraima Solis RN, RN. In Department of CARDIOLOGY. documented in this encounterOhiohealth Marion General Hospital06-27-2023 History of Present illness Narrative* RT [...] 2022 TIME: 1:50 PM documented in this encounterOhiohealth Marion General Hospital06-19-2023 Miscellaneous Notes* Telephone Encounter - Maura Daigle RN - 11/23/2022 3:22 PM EDT CARE CONTINUUM ADVISOR ASSESSMENT PRIMARY CARE PHYSICIAN: Raul Dumont DO OR Surgery Date: 12/04/22 [facility] Appointment: 12/03/22 Health Insurance: Medicare A&B, [place] Financial Resources: Employed: Works [id number] Primary Contact: Extended Emergency Contact Information Primary Emergency Contact: Layla Franco Address: [address] [place] [address] Relation: Spouse Secondary Emergency Contact: Td Franco Address: [address] [place] [address] [address] [place] [address] Relation: Son Other Important Patient Contacts: None 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 [...] surgery/appointments?: Yes, plan to drive w/family to [place] Medication Adherence: Do you have any concerns with your prescription medication?: No Who do you use for pharmacy?: [id number] [place] [address] [address] [facility] [phone] [place] [address] Pre-Hospital Baseline Mental Status: Alert & Oriented Informant: Self and Spouse What is your current functional status?: Perform ADLs independently, uses a cane or walking stick as needed. Equipment: Do you currently use any equipment at home for your medical condition or to help you get around? Cane - Straight Walking stick Active Services/Needs: None Do you have a community living coach contact through your insurance or WRAAA?: No Has the Patient Been in a Snf Facility in the Past 30 days? No FREEDOM OF CHOICE: Level of Care Discussed: Home Care, Snf Facility, Inpatient Rehab Facility, [facility], and Cardiac rehab Financial Disclosure Provided: No Financial Disclaimer Provided: Yes, regarding pre-cert / insurance authorization Provider List: Home Care and Snf Facility Provider list within the patient's requested geographic area shared with the patient/family: Yes - Within 25 miles of [address] [place] [address] PAC Provider Choices Collected Home Health: 1. [facility] 2. [facility] 3. [facility] 4. [facility] Snf: [facility] Interventions: Discussed importance of active PCP relationship and follow up Discussed insurance risks, gaps, and programs available Advanced Directives Education Discussed reliable transportation needs for surgery and follow up appointments Discussed prescription medications adherence Maura Daigle, RN documented in this encounterOhiohealth Marion General Hospital06-06-2023 Miscellaneous Notes* Telephone Encounter - Haley Thompson Coord - 11/10/2022 3:53 PM EDT INN * Telephone Encounter - Qian Castillo - 11/10/2022 2:49 PM EDT Insurance Card(s) scanned into [employer] Please register/advise Thank You! documented in this encounterOhiohealth Marion General Hospital05-16-2023 History of Present illness Narrative* Chaitanya [...] today. Chaitanya Watkins D.P.M. documented in this encounterOhiohealth Marion General Hospital05-15-2023 Surgical operation note* Brief Op Note - Savanna Zhang MD - 10/19/2022 2:20 PM EDT Images from the original note were not included. BRIEF OPERATIVE / PROCEDURE NOTE LOG ID: [id number] PROCEDURE DATE: 10/19/2022 PROCEDURE START TIME: 1:35 PM PROCEDURE END TIME: 2:10 PM PROCEDURALIST(S) AND REGISTERED NURSE BONE MARROW TRANSPLANT(S): Surgeon(s) and Role: * Savanna Zhang MD [...] + atleast mod Savanna Zhang MD Staff Railroad Worker Engine Setter of [facility] and Cardio-Oncology [facility] Pager: [phone] October 19, 2022 5:17 PM documented in this encounterOhiohealth Marion General Hospital05-01-2023 Miscellaneous Notes* Telephone Encounter - Sherrell [...] Coordinator Surgery Special Unit documented in this encounterOhiohealth Marion General Hospital05-01-2023 Instructions* Patient Instructions* Savanna Zhang MD - 10/05/2022 9:52 AM EDT You have 2 heart valve conditions --mitral regurgitation and aortic stenosis To better define these valve conditions, we will plan on CELIA procedure We will touch base after CELIA procedure documented in this encounterOhiohealth Marion General Hospital05-01-2023 History of Present illness Narrative* Savanna Zhang MD - 10/05/2022 9:30 AM EDT Images from the original note were not included. [facility] Department of Cardiovascular Medicine SECTION OF CLINICAL CARDIOLOGY OUTPATIENT VISIT DATE October 05, 2022 OUTPATIENT VISIT TYPE ESTABLISHED PRIMARY CARE PHYSICIAN: Raul Dumont [address] [place] [address] CHIEF COMPLAINT: Cardiology Follow Up , Paroxysmal [...] (HCC) basal cell Cardiomegaly 09/22/12 borderline Dyslipidemia [place] (hard of hearing) Hypertension Pinched nerve in neck Spinal stenosis Stroke (HCC) 2007 TIA (transient ischemic attack) 2007 [facility] PAST SURGICAL HISTORY Procedure Laterality Date ATRIAL FIBRILLATION/FLUTTER ABLATION 2001,2003 FOOT/TOES SURGERY PROC UNLISTED 02/05/10 Performed by CHAITANYA WATKINS at [facility] [place] GASTROCNEMIUS RECESSION 02/05/10 Performed by CHAITANYA WATKINS at [facility] [place] PAST SURGICAL HISTORY OF endoscopic plantar fasciotomy PAST SURGICAL HISTORY OF 04/24/13 ablation TUR CRYOSURG REM OF PROSTATE SOCIAL HISTORY Social History Tobacco Use Smoking status: Never Smokeless tobacco: Never Substance Use Topics Alcohol use: No Drug use: No FAMILY HISTORY Problem Relation Age of Onset Ischemic Heart Disease Father 52 [place] other (cancer, lung) Father 56 yrs Asthma Sister Asthma Grandchild No Family History Other colon cancer No Family History Other colon polyps other (heart disease) Brother open heart surgery ALLERGIES: ALLERGIES Allergen Reactions Grass Pollen Unknown Nasonex [Mometasone] Other: See Comments Made him feel very hot and very jittery and shakey. Prednisone Mental Status Change Sulfa (Sulfonamide * Unknown MEDICATIONS: mag cjrvq-H3-leoyerkj rt xt 500-3,000-150 mg-unit-mg tab^Take by mouth.^Disp: [...] Dyspnea in the Emergency Department (PRIDE) Study. [place] Journal of Cardiology 2005:95:948 to 954. Levon [...] time CONTACT INFORMATION: Savanna Zhang MD Staff Railroad Worker Engine Setter of [facility] Cardiac [facility] and Cardio-Oncology [facility] Pager: [phone] October 05, 2022 documented in this encounterOhiohealth Marion General Hospital04-28-2023 Miscellaneous Notes* Telephone Encounter - Cristine [...] 02/15/2023 Cristine Diamond 10/02/2022 documented in this encounterOhiohealth Marion General Hospital02-15-2023 History of Present illness Narrative* Chaitanya [...] today. Chaitanya Watkins, Radha.P.M. documented in this encounterOhiohealth Marion General Hospital11-15-2022 History of Present illness Narrative* Chaitanya [...] and is current for today. Radha Williamson.P.M. documented in this encounterOhiohealth Marion General Hospital10-27-2022 Instructions* Patient Instructions* Savanna Zhang MD [...] our follow up appointment documented in this encounterOhiohealth Marion General Hospital10-27-2022 History of Present illness Narrative* Savanna Zhang MD - 04/02/2022 8:27 AM EDT Images from the original note were not included. [facility] Department of Cardiovascular Medicine SECTION OF CLINICAL CARDIOLOGY OUTPATIENT VISIT DATE April 02, 2022 OUTPATIENT VISIT TYPE NEW PRIMARY CARE PHYSICIAN: Raul Dumont [address] [place] [address] REFERRING PHYSICIAN: Aortic stenosis CHIEF COMPLAINT: Consult [...] (HCC) basal cell Cardiomegaly 09/22/12 borderline Dyslipidemia [place] (hard of hearing) Hypertension Pinched nerve in neck Spinal stenosis Stroke (HCC) 2007 TIA (transient ischemic attack) 2008 [facility] PAST SURGICAL HISTORY Procedure Laterality Date ATRIAL FIBRILLATION/FLUTTER ABLATION 2001,2003 FOOT/TOES SURGERY PROC UNLISTED 02/05/10 Performed by CHAITANYA WATKINS at [facility] [place] GASTROCNEMIUS RECESSION 02/05/10 Performed by CHAITANYA WATKINS at [facility] [place] PAST SURGICAL HISTORY OF endoscopic plantar fasciotomy PAST SURGICAL HISTORY OF 04/24/13 ablation TUR CRYOSURG REM OF PROSTATE SOCIAL HISTORY Social History Tobacco Use Smoking status: Never Smokeless tobacco: Never Substance Use Topics Alcohol use: No Drug use: No FAMILY HISTORY Problem Relation Age of Onset Ischemic Heart Disease Father 52 [place] other (cancer, lung) Father 56 yrs Asthma [...] (Preliminary result) Impression: SINUS RHYTHM WITH SHORT CT LEFT AXIS DEVIATION RSR' PATTERN IN V1 [...] Dyspnea in the Emergency Department (PRIDE) Study. [place] Journal of Cardiology 2005:95:948 to 954. Levon [...] visit CONTACT INFORMATION: Savanna Zhang MD Staff Railroad Worker Engine Setter of [facility] Cardiac [facility] and Cardio-Oncology [facility] Pager: [phone] April 02, 2022 11:10 AM documented in this encounterOhiohealth Marion General Hospital09-30-2022 Miscellaneous Notes* Telephone Encounter - Clara [...] inthe Aorta? Jordi Franco documented in this encounterOhiohealth Marion General Hospital05-02-2022 Miscellaneous Notes* Telephone Encounter - Shelby Dhaliwla MA - 10/06/2021 10:14 AM EDT Per [...] Shelby Dhaliwal MA 10/06/2021 documented in this encounterPerry ClinicEvaluation + Plan note Future Appointments Appointment Date:02/15/2023 10:45:00 AM Scheduled Provider:Osmel GARCIA MD Location:[facility] Appointment Type:URO Office Visit Appointment Date:04/29/2023 11:00:00 AM Scheduled Provider: Location:[facility] Appointment Type:FM Medicare Wellness Subsequent [facility] Evaluation + Plan note Future Appointments Appointment Date:02/15/2023 10:45:00 AM Scheduled Provider:Osmel GARCIA MD Location:[facility] Appointment Type:URO Office Visit Appointment Date:04/29/2023 11:00:00 AM Scheduled Provider: Location:[facility] Appointment Type:FM Medicare Wellness Subsequent Future Scheduled Tests Laboratory* Basic Metabolic Panel 07/20/22 * CBC w/ Auto Diff 07/20/22 * Thyroid Stimulating Hormone 07/20/22 [facility] Evaluation + Plan note Future Appointments Appointment Date:04/29/2023 11:00:00 AM Scheduled Provider: Location:[facility] Appointment Type:FM Medicare Wellness Subsequent Appointment Date:02/22/2024 10:00:00 AM Scheduled Provider:IVONNE GRANT PA-C Location:[facility] Appointment Type:URO Office Visit Diagnostic Tests Pending * PSA Total 02/16/23 Future Scheduled Tests Laboratory* Basic Metabolic Panel 07/20/22 * CBC w/ Auto Diff 07/20/22 * Thyroid Stimulating Hormone 07/20/22 [facility] evaluation + Plan note Future Appointments Appointment Date:05/03/2023 11:00:00 AM Scheduled Provider: Location:[facility] Appointment Type:FM Medicare Wellness Subsequent Appointment Date:02/22/2024 10:00:00 AM Scheduled Provider:IVONNE GRANT PA-C Location:[facility] Appointment Type:URO Office Visit Future Scheduled Tests Laboratory* Basic Metabolic Panel 07/20/22 * CBC w/ Auto Diff 07/20/22 * Thyroid Stimulating Hormone [facility] Appointment Date:02/22/2024 10:00:00 AM Scheduled Provider:IVONNE GRANT PA-C Location[facility] [place] Appointment Type:URO Office Visit Appointment Date:05/09/2024 11:00:00 AM Scheduled Provider: Location:[facility] Appointment Type: Medicare Wellness Subsequent Future Scheduled Tests Laboratory* Basic Metabolic Panel 07/20/22 * CBC w/ Auto Diff 07/20/22 * Thyroid Stimulating Hormone 07/20/22 [facility] [place] Evaluation noteNo assessment information available [facility] Work Phone: Evaluizzjk note* Diagnosis Paroxysmal atrial fibrillation (HCC)- Primary Atrial fibrillation Nonrheumatic aortic valve stenosis Aortic valve disorders Primary hypertension Unspecified essential hypertension Hyperlipidemia with target LDL less than 70 Other and unspecified hyper[facility] Diagnosis Onychomycosis- Primary Dermatophytosis of nail Pain in toes of both feet [facility] Diagnosis Onychomycosis- Primary Dermatophytosis of nail Pain in toes of both feet [facility] Diagnosis Mitral regurgitation and aortic [...] valve disease unspecified [facility] Diagnosis Onychomycosis- Primary Dermatophytosis of nail Pain in toes of both feet Atherosclerosis of aorta (HCC) Atherosclerosis of aorta [facility] Diagnosis Mitral regurgitation and aortic [...] [facility] Diagnosis Surgery follow-up Follow-up examination, following unspecified surgery [facility] Diagnosis S/P aortic valve replacement- Primary Heart valve replaced by other means S/P mitral valve repair Other postprocedural status S/P patent foramen ovale closure Other postprocedural status Paroxysmal atrial fibrillation (HCC) Atrial fibrillation Essential hypertension Unspecified essential hypertension [facility] Diagnosis Paroxysmal atrial fibrillation (HCC)- [...] and tarsus, unspecified [facility] Diagnosis Pain Generalized [facility] Onychomycosis- Primary Dermatophytosis of nail Pain in toes of both feet [facility] Diagnosis Neoplasm of skin documented in this encounter [facility] Healthcare[facility]* Diagnosis Melanocytic nevi of trunk- Primary Angioma of skin Lentigines Seborrheic keratosis History of malignant melanoma of skin Personal history of malignant melanoma of skin documented in this encounter [facility] HealthcareEvaluation note* Diagnosis Parkinson's disease with dyskinesia and fluctuating manifestations (CMS/HCC)- Primary Imbalance Abnormality of gait [place], subsequent encounter documented in this encounter [facility] HealthcareHistory general Narrative - Reported* Type Description Date Medical History anxiety Medical History hypercholesterolemia Medical History hx of strokes Medical History hypertension Medical History melanoma Medical History Parkinsonism, unspecified Medical History GERD (gastroesophageal reflux di sease) Medical History CAD (coronary artery disease) Surgical History melanoma removal on arm Surgical History back Surgical History heart valve repair [employer] Other Hospital course Narrative No data available for this section [facility] Hospital Discharge instructions No data available for this section [facility] Progress note No data available for this section [facility] Reason for referral (narrative)* Outpatient Procedure (Routine) - Authorized Specialty Diagnoses / Procedures Referred By Contac t Referred To [facility] Diagnoses Nonrheumatic aortic valve stenosis Procedures ECHO ECHO TTHRC R-T 2D W/WOM-MODE COMPL SPEC&COLR D Savanna Zhang MD [address] [facility] [address] [place] [address] [facility] [place] [address] [place] [id number] Referral ID Status Reason Start Date Expiration Date Visits Requested Visits Authorized [id number] Authorized Auto-Generat ed Referral 10/01/2022 04/02/2023 1 1 [facility] for referral (narrative)* Outpatient Procedure (Routine) - Pending Review Specialty Diagnoses / Procedures Referred By Contac t Referred To Contact [facility] [place] Diagnoses Mitral regurgitation and aortic stenosis Procedures ECHO TRANSESOPHAGEAL ECHO TRANSESOPHAG R-T 2D W/PRB IMG ACQUSLIM I&R Savanna Zhang MD [address] [facility] [address] [place] [address] [facility] [place] [address] [place] [address] Referral ID Status Reason Start Date Expiration Date Visits Requested Visits Authorized [id number] Pending Review Auto-Generat ed Referral 10/05/2022 10/05/2023 1 1 * Outpatient Procedure (Routine) - Pending Review Specialty Diagnoses / Procedures Referred By Contac t Referred To Contact [facility] [place] Diagnoses Mitral regurgitation and aortic stenosis Procedures ECG COMPLETE ECG ROUTINE ECG W/LEAST 12 LDS W/I&R Savanna Zhang MD [address] [facility] [address] [place] [address] [facility] [place] [address] [place] [address] Referral ID Status Reason Start Date Expiration Date Visits Requested Visits Authorized [id number] Pending Review Auto-Generat ed Referral 10/05/2022 10/05/2023 1 1 [facility] for referral (narrative)* Outpatient Procedure (Routine) - Closed Specialty Diagnoses / Procedures Referred By Contac t Referred To Contact [facility] Diagnoses Paroxysmal atrial fibrillation (HCC) Procedures ECG COMPLETE ECG ROUTINE ECG W/LEAST 12 LDS W/I&R Barbara Warner, NABIL.BENJAMIN, RAMÓN [address] [facility] [address] [place] [address] [facility] [address] [place] [address] Referral ID Status Reason Start Date Expiration Date V isits Requested Visits Authorized [id number] Closed Auto-Generate d Referral 01/14/2023 01/14/2024 1 1 [facility] for referral (narrative)* Diagnostic Procedure Only (Routine) - Closed Specialty Diagnoses / Procedures Referred By Contac t Referred To Contact XR IMAGING Diagnoses Pain Procedures XR FOOT GENERAL 3V AP/LAT/OBL LEFT RADEX FOOT COMPLETE MINIMUM 3 VIEWS Chaitanya Watkins DPM [address] [place] [address] [place] [address] Referral ID Status Reason Start Date Expiration Date V isits Requested Visits Authorized [id number] Closed Auto-Generate d Referral 05/10/2023 06/08/2024 1 1 [facility] for visit Narrative* Diagnostic Procedure Only (Routine) - Closed Specialty Diagnoses / Procedures Referred By Contac t Referred To Contact XR IMAGING Diagnoses Pain Procedures XR FOOT GENERAL 3V AP/LAT/OBL LEFT RADEX FOOT COMPLETE MINIMUM 3 VIEWS Chaitanya Watkins DPM [address] [place] [address] [place] [address] Referral ID Status Reason Start Date Expiration Date V isits Requested Visits Authorized [id number] Closed Auto-Generate d Referral 05/10/2023 06/08/2024 1 1 [facility] for visit Narrative* Rehabilitation - Outpatient (Routine) - Authorized Specialty Diagnoses / Procedures Referred By Contac t Referred To Contact Physical Therapy Diagnoses Unsteadiness on feet Procedures CT PHYS THERAPY EVALUATION Raul Dumont MD [address] [place] [address] Phone: tel: fax: Ernestina Hawkins, PT [address] [place] [address] Phone: tel: fax: Referral ID Status Reason Start Date Expiration Date Visits Requested Visits Authorized [id number] Authorized Consult and Treat 07/18/2024 01/14/2025 30 30 [facility] Summary Purpose Family History Relationship Condition Age at Onset Recorded Date/T sarah brother Unknown father Malignant neoplasm Unknown Unknown Not Specified Unknown sister Unknown Advance Directives Documents on File Type Date Recorded Patient 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 Advance Directive(s) 06/25/2020 10:37 AM [...] CT ANGIOGRAPHY CHEST W/CONTRAST/NONCONTRAST Brain Nieves MD [address] [place] [address] Ct Imaging Referral ID Status Reason Start Date Expiration Date V isits Requested Visits Authorized [id number] Closed Auto-Generate d Referral 11/16/2022 12/16/2023 1 1 Specialty Diagnoses / Procedures Referred By Asuncion rucker Referred To Contact Cardiothoracic Surgery Diagnoses Mitral regurgitation and aortic stenosis Procedures CONSULT TO CARDIOTHORACIC SURGERY Savanna Zhang MD [address] [place] [address] [place] [address] [place] [id number] Referral ID Status Reason Start Date Expiration Date Visits Requested Visits Authorized [id number] Ref Not Required PCP Requested Referral 11/10/2022 11/10/2023 1 1 Additional Source Comments (unrecognized sect ion and content) No Status Records FoundNo Status Records FoundNo Status Records FoundNo Status Records FoundNo Status Records FoundNo Status Records FoundNo Status Records FoundNo Status Records Found INFORMATION SOURCE (unrecogn ized section and content) DATE CREATED AUTHOR 08/03/2019 [facility] DATE CREATED AUTHOR AUTHOR'S ORGANIZ ATION 01/03/2022 [facility] DATE CREATED AUTHOR AUTHOR'S ORGANIZ ATION 01/07/2022 [facility] DATE CREATED AUTHOR AUTHOR'S ORGANIZ ATION 12/03/2023 [facility] DATE CREATED AUTHOR AUTHOR'S ORGANIZ ATION 12/08/2023 [facility] DATE CREATED AUTHOR AUTHOR'S ORGANIZ ATION 02/26/2024 [facility] DATE CREATED AUTHOR AUTHOR'S ORGANIZ ATION 05/12/2024 [facility] DATE CREATED AUTHOR AUTHOR'S ORGANIZ ATION 07/21/2024 [facility] dical Specialists EPIC Source Comments (unrecognize d section and content) In the event this informatio n is protected by the Federal Confidentiality of Alcohol and Drug Abuse Patient Records regulations: The Federal rules restrict any use of the information to criminally investigate or prosecute any alcohol or drug abuse patient.[facility] the event this information is protected by the Federal Confidentiality of Alcohol and Drug Abuse Patient Records regulations: The Federal rules restrict any use of the information to criminally investigate or prosecute any alcohol or drug abuse patient.[facility] the event this information is protected by the Federal Confidentiality of Alcohol and Drug Abuse Patient Records regulations: The Federal rules restrict any use of the information to criminally investigate or prosecute any alcohol or drug abuse patient.[facility] the event this information is protected by the Federal Confidentiality of Alcohol and Drug Abuse Patient Records regulations: The Federal rules restrict any use of the information to criminally investigate or prosecute any alcohol or drug abuse patient.[facility] Hospital[facility] the event this information is protected by the Federal Confidentiality of Alcohol and Drug Abuse Patient Records regulations: The Federal rules restrict any use of the information to criminally investigate or prosecute any alcohol or drug abuse patient.[facility] Hospital[facility] the event this information is protected by the Federal Confidentiality of Alcohol and Drug Abuse Patient Records regulations: The Federal rules restrict any use of the information to criminally investigate or prosecute any alcohol or drug abuse patient.[facility] Hospital[facility] the event this information is protected by the Federal Confidentiality of Alcohol and Drug Abuse Patient Records regulations: The Federal rules restrict any use of the information to criminally investigate or prosecute any alcohol or drug abuse patient.[facility] Hospital[facility] the event this information is protected by the Federal Confidentiality of Alcohol and Drug Abuse Patient Records regulations: The Federal rules restrict any use of the information to criminally investigate or prosecute any alcohol or drug abuse patient.[facility] the event this information is protected by the Federal Confidentiality of Alcohol and Drug Abuse Patient Records regulations: The Federal rules restrict any use of the information to criminally investigate or prosecute any alcohol or drug abuse patient.[facility] Hospital[facility] the event this information is protected by the Federal Confidentiality of Alcohol and Drug Abuse Patient Records regulations: The Federal rules restrict any use of the information to criminally investigate or prosecute any alcohol or drug abuse patient.[facility] Hospital[facility] the event this information is protected by the Federal Confidentiality of Alcohol and Drug Abuse Patient Records regulations: The Federal rules restrict any use of the information to criminally investigate or prosecute any alcohol or drug abuse patient.[facility] Hospital[facility] the event this information is protected by the Federal Confidentiality of Alcohol and Drug Abuse Patient Records regulations: The Federal rules restrict any use of the information to criminally investigate or prosecute any alcohol or drug abuse patient.[facility] Hospital[facility] the event this information is protected by the Federal Confidentiality of Alcohol and Drug Abuse Patient Records regulations: The Federal rules restrict any use of the information to criminally investigate or prosecute any alcohol or drug abuse patient.[facility] Hospital[facility] the event this information is protected by the Federal Confidentiality of Alcohol and Drug Abuse Patient Records regulations: The Federal rules restrict any use of the information to criminally investigate or prosecute any alcohol or drug abuse patient.[facility] HospitalIn the event this information is protected by the Federal Confidentiality of Alcohol and Drug Abuse Patient Records regulations: The Federal rules restrict any use of the information to criminally investigate or prosecute any alcohol or drug abuse patient.[facility] Hospital[facility] the event this information is protected by the Federal Confidentiality of Alcohol and Drug Abuse Patient Records regulations: The Federal rules restrict any use of the information to criminally investigate or prosecute any alcohol or drug abuse patient.[facility] Hospital[facility] the event this information is protected by the Federal Confidentiality of Alcohol and Drug Abuse Patient Records regulations: The Federal rules restrict any use of the information to criminally investigate or prosecute any alcohol or drug abuse patient.[facility] HospitalIn the event this information is protected by the Federal Confidentiality of Alcohol and Drug Abuse Patient Records regulations: The Federal rules restrict any use of the information to criminally investigate or prosecute any alcohol or drug abuse patient.[facility] Hospital[facility] the event this information is protected by the Federal Confidentiality of Alcohol and Drug Abuse Patient Records regulations: The Federal rules restrict any use of the information to criminally investigate or prosecute any alcohol or drug abuse patient.[facility] HospitalIn the event this information is protected by the Federal Confidentiality of Alcohol and Drug Abuse Patient Records regulations: The Federal rules restrict any use of the information to criminally investigate or prosecute any alcohol or drug abuse patient.[facility] HospitalIn the event this information is protected by the Federal Confidentiality of Alcohol and Drug Abuse Patient Records regulations: The Federal rules restrict any use of the information to criminally investigate or prosecute any alcohol or drug abuse patient.[facility] HospitalIn the event this information is protected by the Federal Confidentiality of Alcohol and Drug Abuse Patient Records regulations: The Federal rules restrict any use of the information to criminally investigate or prosecute any alcohol or drug abuse patient.[facility] HospitalIn the event this information is protected by the Federal Confidentiality of Alcohol and Drug Abuse Patient Records regulations: The Federal rules restrict any use of the information to criminally investigate or prosecute any alcohol or drug abuse patient.[facility] HospitalIn the event this information is protected by the Federal Confidentiality of Alcohol and Drug Abuse Patient Records regulations: The Federal rules restrict any use of the information to criminally investigate or prosecute any alcohol or drug abuse patient.[facility] HospitalIn the event this information is protected by the Federal Confidentiality of Alcohol and Drug Abuse Patient Records regulations: The Federal rules restrict any use of the information to criminally investigate or prosecute any alcohol or drug abuse patient.[facility] HospitalIn the event this information is protected by the Federal Confidentiality of Alcohol and Drug Abuse Patient Records regulations: The Federal rules restrict any use of the information to criminally investigate or prosecute any alcohol or drug abuse patient.[facility] HospitalIn the event this information is protected by the Federal Confidentiality of Alcohol and Drug Abuse Patient Records regulations: The Federal rules restrict any use of the information to criminally investigate or prosecute any alcohol or drug abuse patient.[facility] HospitalIn the event this information is protected by the Federal Confidentiality of Alcohol and Drug Abuse Patient Records regulations: The Federal rules restrict any use of the information to criminally investigate or prosecute any alcohol or drug abuse patient.[facility] HospitalIn the event this information is protected by the Federal Confidentiality of Alcohol and Drug Abuse Patient Records regulations: The Federal rules restrict any use of the information to criminally investigate or prosecute any alcohol or drug abuse patient.[facility] HospitalIn the event this information is protected by the Federal Confidentiality of Alcohol and Drug Abuse Patient Records regulations: The Federal rules restrict any use of the information to criminally investigate or prosecute any alcohol or drug abuse patient.[facility] HospitalIn the event this information is protected by the Federal Confidentiality of Alcohol and Drug Abuse Patient Records regulations: The Federal rules restrict any use of the information to criminally investigate or prosecute any alcohol or drug abuse patient.[facility] HospitalIn the event this information is protected by the Federal Confidentiality of Alcohol and Drug Abuse Patient Records regulations: The Federal rules restrict any use of the information to criminally investigate or prosecute any alcohol or drug abuse patient.[facility] HospitalIn the event this information is protected by the Federal Confidentiality of Alcohol and Drug Abuse Patient Records regulations: The Federal rules restrict any use of the information to criminally investigate or prosecute any alcohol or drug abuse patient.[facility] HospitalIn the event this information is protected by the Federal Confidentiality of Alcohol and Drug Abuse Patient Records regulations: The Federal rules restrict any use of the information to criminally investigate or prosecute any alcohol or drug abuse patient.[facility] HospitalIn the event this information is protected by the Federal Confidentiality of Alcohol and Drug Abuse Patient Records regulations: The Federal rules restrict any use of the information to criminally investigate or prosecute any alcohol or drug abuse patient.[facility] HospitalIn the event this information is protected by the Federal Confidentiality of Alcohol and Drug Abuse Patient Records regulations: The Federal rules restrict any use of the information to criminally investigate or prosecute any alcohol or drug abuse patient.[facility] HospitalIn the event this information is protected by the Federal Confidentiality of Alcohol and Drug Abuse Patient Records regulations: The Federal rules restrict any use of the information to criminally investigate or prosecute any alcohol or drug abuse patient.[facility] HospitalIn the event this information is protected by the Federal Confidentiality of Alcohol and Drug Abuse Patient Records regulations: The Federal rules restrict any use of the information to criminally investigate or prosecute any alcohol or drug abuse patient.[facility] HospitalIn the event this information is protected by the Federal Confidentiality of Alcohol and Drug Abuse Patient Records regulations: The Federal rules restrict any use of the information to criminally investigate or prosecute any alcohol or drug abuse patient.[facility] HospitalIn the event this information is protected by the Federal Confidentiality of Alcohol and Drug Abuse Patient Records regulations: The Federal rules restrict any use of the information to criminally investigate or prosecute any alcohol or drug abuse patient.[facility] HospitalIn the event this information is protected by the Federal Confidentiality of Alcohol and Drug Abuse Patient Records regulations: The Federal rules restrict any use of the information to criminally investigate or prosecute any alcohol or drug abuse patient.[facility] HospitalIn the event this information is protected by the Federal Confidentiality of Alcohol and Drug Abuse Patient Records regulations: The Federal rules restrict any use of the information to criminally investigate or prosecute any alcohol or drug abuse patient.[facility] Reason for Visit (unrecogniz ed section and content) Reason Comments Refill Request Reason Comments Results Reason Comments Consult Dr. 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 Assessment Reason Comments Education Of Patient/family Specialty Diagnoses / Procedures Referred By Contac t Referred To Contact CT IMAGING Diagnoses Encounter for preprocedural cardiovascular examination Pre-operative cardiovascular examination Aortic valve disorder Paroxysmal atrial fibrillation (HCC) Mitral valve disorder Procedures CTA CHEST (GATED) W IVCON CT ANGIOGRAPHY CHEST W/CONTRAST/NONCONTRAST Brain Nieves MD [address] [place] [address] Ct Imaging Referral ID Status Reason Start Date Expiration Date V isits Requested Visits Authorized [id number] Closed Auto-Generate d Referral 11/16/2022 12/16/2023 1 [...] ECG W/LEAST 12 LDS W/I&R Barbara Warner, NABIL.REPAIRER HELPER, DNP [address] [address] [facility] [place] [address] [place] [address] Referral ID Status Reason Start Date Expiration Date V isits Requested Visits Authorized [id number] Closed Auto-Generate d Referral 01/14/2023 01/14/2024 1 [...] November 04, 2023 End: November 04, 2023 Carpet Sewer Relationship Specialty Start Date End Date Raul Dumont DO PCP - General 01/22/10 Floyd Spaulding MD [address] [facility] [address] [place] [address] Primary Staff Physician Cardiology 08/23/18 Team Status: Inactive Member Role Status Dates Raul Dumont DO Primary Care Provider Active Raghav Hubbard MD Attending Provider Active Carpet Sewer Relationship Specialty Start Date End Date Raul Dumont DO PCP - General 01/22/10 Floyd Spaulding MD [address] [facility] [address] [place] [address] Primary Staff Physician Cardiology 08/23/18 Carpet Sewer Relationship Specialty Start Date End Date Raul Dumont DO PCP - General 01/22/10 Floyd Spaulding MD [address] [facility] [address] [place], [place] [id number] Primary Staff Physician Cardiology 08/23/18 Carpet Sewer Relationship Specialty Start Date End Date Raul Dumont DO PCP - General 01/22/10 Floyd Spaulding MD [address] [address] Primary Staff Physician Cardiology 08/23/18 Carpet Sewer Relationship Specialty Start Date End Date Raul Dumont DO PCP - General 01/22/10 Floyd Spaulding MD [address] [address] Primary Staff Physician Cardiology 08/23/18 Carpet Sewer Relationship Specialty Start Date End Date Raul Dumont DO PCP - General 01/22/10 Floyd Spaulding MD [address] [address] Primary Staff Physician Cardiology 08/23/18 Savanna Zhang MD [address] [address] Primary Staff Physician Cardiology 10/05/22 Carpet Sewer Relationship Specialty Start Date End Date Raul Dumont DO PCP - General 01/22/10 Floyd Spaulding MD [address] [address] Primary Staff Physician Cardiology 08/23/18 Savanna Zhang MD [address] [address] Primary Staff Physician Cardiology 10/05/22 Carpet Sewer Relationship Specialty Start Date End Date Raul Dumont DO PCP - General 01/22/10 Floyd Spaulding MD [address] [place] [address], [place] [address] Primary Staff Physician Cardiology 08/23/18 Savanna Zhang MD [address] [address] Primary Staff Physician Cardiology 10/05/22 Carpet Sewer Relationship Specialty Start Date End Date Raul Dumont DO PCP - General 01/22/10 Floyd Spaulding MD [address] [place] [address] Primary Staff Physician Cardiology 08/23/18 Savanna Zhang MD [address] [address] Primary Staff Physician Cardiology 10/05/22 Carpet Sewer Relationship Specialty Start Date End Date Raul Dumont, DO PCP - General 01/22/10 Floyd Spaulding MD [address] [place] [address] Primary Staff Physician Cardiology 08/23/18 Savanna Zhang MD [address] [address] Primary Staff Physician Cardiology 10/05/22 Carpet Sewer Relationship Specialty Start Date End Date Raul Dumont DO PCP - General 01/22/10 Floyd Spaulding MD [address] [place] [address] Primary Staff Physician Cardiology 08/23/18 Savanna Zhang MD [address] [address] Primary Staff Physician Cardiology 10/05/22 Brain Nieves MD [address] [facility] [place] [address] Surgeon Cardiac Surg 11/10/22 Carpet Sewer Relationship Specialty Start Date End Date Raul Dumont DO PCP - General 01/22/10 Floyd Spaulding MD [address] [address] Primary Staff Physician Cardiology 08/23/18 Savanna Zhang MD [address] [address] Primary Staff Physician Cardiology 10/05/22 Brain Nieves MD [address] [place] [address] Surgeon Cardiac Surg 11/10/22 Carpet Sewer Relationship Specialty Start Date End Date Raul Dumont DO PCP - General 01/22/10 Floyd Spaulding MD [address] [address] Primary Staff Physician Cardiology 08/23/18 Savanna Zhang MD [address] [address] Primary Staff Physician Cardiology 10/05/22 Brain Nieves MD [address] [place] [address] Surgeon Cardiac Surg 11/10/22 Hay Jovel DO [address] [place] [address] Cardiology 11/17/22 Carpet Sewer Relationship Specialty Start Date End Date Raul Dumont DO PCP - General 01/22/10 Floyd Spaulding MD [address] [address] Primary Staff Physician Cardiology 08/23/18 Savanna Zhang MD [address] [address] Primary Staff Physician Cardiology 10/05/22 Brain Nieves MD [address] [facility] [address] Surgeon Cardiac Surg 11/10/22 Hay Jovel DO [address] [place] [address] Cardiology 11/17/22 Carpet Sewer Relationship Specialty Start Date End Date Raul Dumont DO PCP - General 01/22/10 Floyd Spaulding MD [address] [address] Primary Staff Physician Cardiology 08/23/18 Savanna Zhang MD [address] [address] Primary Staff Physician Cardiology 10/05/22 Brain Nieves MD [address] [place] [address] Surgeon Cardiac Surg 11/10/22 Hay Jovel DO [address] [place] [address] Cardiology 11/17/22 Carpet Sewer Relationship Specialty Start Date End Date Raul Dumont DO PCP - General 01/22/10 Floyd Spaulding MD [address] [place] [address] Primary Staff Physician Cardiology 08/23/18 Savanna Zhang MD 6801 [facility] [address] [place] [address] Primary Staff Physician Cardiology 10/05/22 Brain Nieves MD [address] [place] [address] Surgeon Cardiac Surg 11/10/22 Hay Jovel, DO [address] [place] [address] Cardiology 11/17/22 Carpet Sewer Relationship Specialty Start Date End Date Raul Dumont DO PCP - General 01/22/10 Floyd Spaulding MD [address] [address] Primary Staff Physician Cardiology 08/23/18 Savanna Zhagn MD [address] [address] Primary Staff Physician Cardiology 10/05/22 Brain Nieves MD [address] [place] [address] Surgeon Cardiac Surg 11/10/22 Hay Jovel, DO [address] [place] [address] Cardiology 11/17/22 Carpet Sewer Relationship Specialty Start Date End Date Raul Dumont DO PCP - General 01/22/10 Floyd Spaulding MD [address] [address] Primary Staff Physician Cardiology 08/23/18 Savanna Zhang MD [address] [place] [address] Primary Staff Physician Cardiology 10/05/22 Brain Nieves MD [address] [place] [address] Surgeon Cardiac Surg 11/10/22 Hay Jovel, DO [address] [place] [address] Cardiology 11/17/22 Carpet Sewer Relationship Specialty Start Date End Date Raul Dumont DO PCP - General 01/22/10 Floyd Spaulding MD [address] [address] Primary Staff Physician Cardiology 08/23/18 Savanna Zhang MD 6801 [facility] [address] [place] [address] Primary Staff Physician Cardiology 10/05/22 Brain Nieves MD [address] [place] [address] Surgeon Cardiac Surg 11/10/22 Hay Jovel, DO [address] [place] [address] Cardiology 11/17/22 Carpet Sewer Relationship Specialty Start Date End Date Raul Dumont DO PCP - General 01/22/10 Floyd Spaulding MD [facility] [address] [address] Primary Staff Physician Cardiology 08/23/18 Savanna Zhang MD [address] [place] [address] [address] [place] [address] Primary Staff Physician Cardiology 10/05/22 Brain Nieves MD [address] [facility] [address] Surgeon Cardiac Surg 11/10/22 Hay Jovel DO [address] [place] [address] Cardiology 11/17/22 Carpet Sewer Relationship Specialty Start Date End Date Raul Dumont DO PCP - General 01/22/10 Floyd Spaulding MD [address] [facility] [address] [place] [address] Primary Staff Physician Cardiology 08/23/18 Savanna Zhang MD 6801 [facility] [address] [place] [address] Primary Staff Physician Cardiology 10/05/22 Brain Nieves MD [address] [place] [address] Surgeon Cardiac Surg 11/10/22 Hay Jovel DO [address] [place] [address] Cardiology 11/17/22 Carpet Sewer Relationship Specialty Start Date End Date Raul Dumont DO PCP - General 01/22/10 Floyd Spaulding MD [address] [facility] [address] [place] [address] Primary Staff Physician Cardiology 08/23/18 Savanna Zhang MD [address] [facility] [address] [place] [address] Primary Staff Physician Cardiology 10/05/22 Brain Nieves MD [address] [place] [address] Surgeon Cardiac Surg 11/10/22 Hay Jovel DO [address] [place] [address] Cardiology 11/17/22 Carpet Sewer Relationship Specialty Start Date End Date Raul Dumont DO PCP - General 01/22/10 Floyd Spaulding MD [address] [facility] [address] [place] [address] Primary Staff Physician Cardiology 08/23/18 Savanna Zhang MD [address] [facility] [address] [place] [address] Primary Staff Physician Cardiology 10/05/22 Brain Nieves MD [address] [place] [address] Surgeon Cardiac Surg 11/10/22 Hay Jovel DO [address] [place] [address] Cardiology 11/17/22 Carpet Sewer Relationship Specialty Start Date End Date Raul Dumont DO PCP - General 01/22/10 Floyd Spaulding MD [address] [place] [address] Primary Staff Physician Cardiology 08/23/18 Savanna Zhang MD [address] [place] [address] Primary Staff Physician Cardiology 10/05/22 Brain Nieves MD [address] [place] [address] Surgeon Cardiac Surg 11/10/22 Hay Jovel DO [address] [place] [address] Cardiology 11/17/22 Carpet Sewer Relationship Specialty Start Date End Date Raul Dumont DO PCP - General 01/22/10 Floyd Spaulding MD [address] [facility] [address] [place] [address] Primary Staff Physician Cardiology 08/23/18 Savanna Zhang MD [address] [facility] [address] [place] [address] Primary Staff Physician Cardiology 10/05/22 Brain Nieves MD [address] [place] [address] Surgeon Cardiac Surg 11/10/22 Hay Jovel DO [address] [place] [address] Cardiology 11/17/22 Carpet Sewer Relationship Specialty Start Date End Date Raul Dumont DO PCP - General 01/22/10 Floyd Spaulding MD [address] [facility] [address] [place] [address] Primary Staff Physician Cardiology 08/23/18 Savanna Zhang MD [address] [facility] [address] [place] [address] Primary Staff Physician Cardiology 10/05/22 Brain Nieves MD [address] [place] [address] Surgeon Cardiac Surg 11/10/22 Hay Jovel DO [address] [place] [address] Cardiology 11/17/22 Carpet Sewer Relationship Specialty Start Date End Date Raul Dumont DO PCP - General 01/22/10 Floyd Spaulding MD [address] [address] Primary Staff Physician Cardiology 08/23/18 Savanna Zhang MD [address] [facility] [address] [place] [address] Primary Staff Physician Cardiology 10/05/22 Brain Nieves MD [address] [place] [address] Surgeon Cardiac Surg 11/10/22 Hay Jovel DO [address] [place] [address] Cardiology 11/17/22 Carpet Sewer Relationship Specialty Start Date End Date Raul Dumont DO PCP - General 01/22/10 Floyd Spaulding MD [address] [address] Primary Staff Physician Cardiology 08/23/18 Savanna Zhang MD [address] [facility] [address] [place] [address] Primary Staff Physician Cardiology 10/05/22 Brain Nieves MD [address] [place] [address] Surgeon Cardiac Surg 11/10/22 Hay Jovel DO [address] [place] [address] Cardiology 11/17/22 Carpet Sewer Relationship Specialty Start Date End Date Raul Dumont DO PCP - General 01/22/10 Floyd Spaulding MD [address] [facility], [address], [address] [place] [address] Primary Staff Physician Cardiology 08/23/18 Savanna Zhang MD [address] [facility], [address], [address] [place] [address] Primary Staff Physician Cardiology 10/05/22 Brain Nieves MD [address] [place] [address] Surgeon Cardiac Surg 11/10/22 Hay Jovel DO [address] [place] [address] Cardiology 11/17/22 Carpet Sewer Relationship Specialty Start Date End Date Raul Dumont DO PCP - General 01/22/10 Floyd Spaulding MD [address] [facility], [address] [place] [address] Primary Staff Physician Cardiology 08/23/18 Savanna Zhang MD [address] [facility], [address] [place] [address] Primary Staff Physician Cardiology 10/05/22 Brain Nieves MD [address] [place] [address] Surgeon Cardiac Surg 11/10/22 Hay Jovel DO [address] [place] [address] Cardiology 11/17/22 Carpet Sewer Relationship Specialty Start Date End Date Raul Dumont DO PCP - General 01/22/10 Floyd Spaulding MD [address] [facility], [address], [address] [place] [address] Primary Staff Physician Cardiology 08/23/18 Savanna Zhang MD [address] [facility], [address] [place] [address] Primary Staff Physician Cardiology 10/05/22 Brain Nieves MD [address] [place] [address] Surgeon Cardiac Surg 11/10/22 Hay Jovel DO [address] [place] [address] Cardiology 11/17/22 Carpet Sewer Relationship Specialty Start Date End Date Raul Dumont DO PCP - General 01/22/10 Floyd Spaulding MD [address] [facility], [address], [address] [place] [address] Primary Staff Physician Cardiology 08/23/18 Savanna Zhang MD [address] [facility], [address], [address] [place] [address] Primary Staff Physician Cardiology 10/05/22 Brain Nieves MD [address] [facility] [place] [address] Surgeon Cardiac Surg 11/10/22 Hay Jovel DO [address] [facility] [place] [address] Cardiology 11/17/22 Carpet Sewer Relationship Specialty Start Date End Date Raul Dumont DO PCP - General 01/22/10 Floyd Spaulding MD [address] [facility], [address] [place] [address] Primary Staff Physician Cardiology 08/23/18 Savanna Zhang MD [address] [facility], [address] [place] [address] Primary Staff Physician Cardiology 10/05/22 Brain Nieves MD [address] [place] [address] Surgeon Cardiac Surg 11/10/22 Hay Jovel DO [address] [place] [address] Cardiology 11/17/22 Carpet Sewer Relationship Specialty Start Date End Date Raul Dumont DO PCP - General 01/22/10 Floyd Spaulding MD [address] [facility], [facility], [address] [place] [address] Primary Staff Physician Cardiology 08/23/18 Savanna Zhang MD [address] [facility], [facility], [address] [place] [address] Primary Staff Physician Cardiology 10/05/22 Brain Nieves MD [address] [place] [address] Surgeon Cardiac Surg 11/10/22 Hay Jovel DO [address] [place] [address] Cardiology 11/17/22 Carpet Sewer Relationship Specialty Start Date End Date Raul Dumont DO PCP - General 01/22/10 Floyd Spaulding MD [address] [facility], [address], [address] [place] [address] Primary Staff Physician Cardiology 08/23/18 Savanna Zhang MD [address] [facility], [address], [address] [place] [address] Primary Staff Physician Cardiology 10/05/22 Brain Nieves MD [address] [place] [address] Surgeon Cardiac Surg 11/10/22 Hay Jovel DO [address] [place] [address] Cardiology 11/17/22 Carpet Sewer Relationship Specialty Start Date End Date Raul Dumont MD [address] [place] [address] PCP - General Perianesthesia Manager 03/18/23 Carpet Sewer Relationship Specialty Start Date End Date Raul Dumont MD [address] [place] [address] PCP - General Perianesthesia Manager 03/18/23 Carpet Sewer Relationship Specialty Start Date End Date Raul Dumont MD [address] [place] [address] PCP - General Perianesthesia Manager 03/18/23 Carpet Sewer Relationship Specialty Start Date End Date Raul Dumont MD [address] [place] [address] PCP - General Perianesthesia Manager 03/18/23 Carpet Sewer Relationship Specialty Start Date End Date Raul Dumont MD [address] [place] [id number] PCP - General Perianesthesia Manager 03/18/23 Goals (unrecognized section and content) Goals [...] BE BASED ON THE PRIMARY CLINICAL RECORDS. [facility]. provides no warranty or guarantee of the accuracy or completeness of information in this document.
--- NOTE | 2024-07-26 21:32 | ED_ITS ---
HPI HPI - General Adult General Chief complaint: Nausea/Vomiting/Diarrhea Stated complaint: Cough blood Time Seen by Provider: 07/26/24 21:11 Source: patient and other Source information: EMS Mode of arrival: ambulance Limitations: no limitations History of Present Illness HPI narrative: 83-year-old male presents because he vomited blood. He is a poor historian. It seems that he vomited blood tonight. He states that he has Parkinson's and he often falls. He fell tonight because he lost his balance, he did not pass out. He states right afterwards he vomited some blood. He was transported here by paramedics. Later his son arrived and gave an excellent history. The son states that the patient's called the paramedics in a panic and he reports that she has dementia. He states it is getting to the point where they cannot be by themselves any longer and that he is going to look into further care. He reports that this happens quite a bit, he has vertigo and he loses his balance and had a fall. The patient's son reported minimal blood and it looked just like some streaks. Related Data Home Medications ?Medication ?Instructions ?Recorded ?Confirmed carbidopa 10 mg-levodopa 100 mg 1 tab 02/04/24 tablet escitalopram oxalate 10 mg tablet 10 mg 02/04/24 finasteride 5 mg tablet 5 mg 02/04/24 losartan 25 mg tablet 25 mg 02/04/24 melatonin 5 mg capsule mg 02/04/24 metoprolol succinate 25 mg 25 mg PO 02/04/24 tablet,extended release 24 hr pantoprazole 40 mg tablet,delayed 40 mg PO 02/04/24 release rivaroxaban 20 mg tablet (Xarelto) 20 mg PO Q24H 02/04/24 07/05/24 gabapentin 300 mg capsule mg 07/05/24 Allergies Allergy/AdvReac Type Severity Reaction Status Date / Time Sulfa (Sulfonamide Allergy Unknown Unknown Verified 07/26/24 21:15 Antibiotics) Opioid HPI Opioid Management Most Recent Opioid Data: Last Pain Scale 3 07/05/24 17:54 07/05/24 Review of Systems ROS Narrative Not obtainable, poor historian PFSH PFSH Social History Little interest or pleasure in doing things: not at all Feeling down, depressed, or hopeless: not at all Exam Narrative Exam Narrative: Nurses note and vital signs reviewed and patient is not hypoxic. General: The patient appear in no apparent distress. Patient has movements consistent with Parkinson's Skin: Warm, dry, no pallor noted. There is no rash noted. Head: Normocephalic, atraumatic Eye: Normal conjunctiva, no drainage Ears, Nose, Mouth, and Throat: oral mucosa is moist. Nares patent. 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, symmetrical pulses noted bilaterally Neurological: A&O, normal speech Psychiatric: Cooperative Constitutional Vital Signs, click to edit/add: Last Vital Signs Pulse 110 H 07/26/24 21:10 Resp 18 07/26/24 21:10 BP 143/119 H 07/26/24 21:10 Pulse Ox 93 L 07/26/24 21:10 O2 Del Method Room Air 07/26/24 21:10 Course Vital Signs Vital signs: Vital Signs Pulse Rate 110 H 07/26/24 21:10 Respiratory Rate 18 07/26/24 21:10 Blood Pressure 143/119 H 07/26/24 21:10 Pulse Oximetry 93 L 07/26/24 21:10 Oxygen Delivery Method Room Air 07/26/24 21:10 Pulse Rate 110 H 07/26/24 21:10 Respiratory Rate 18 07/26/24 21:10 Blood Pressure 143/119 H 07/26/24 21:10 Pulse Oximetry 93 L 07/26/24 21:10 Oxygen Delivery Method Room Air 07/26/24 21:10 Medical Decision Making MDM Narrative Medical decision making narrative: CBC and BMP are normal. Further workup was offered but the son does not feel that it is necessary. He states that he will take his father home. He requested medication for the vertigo and the patient is prescribed a low-dose of Antivert. Treatment diagnosis and follow-up were discussed with the patient and his son. There was no injury from the fall. Differential Diagnosis Differential Diagnosis: Fall, anemia, acute kidney injury Lab Data Lab results reviewed: Yes I reviewed the patient's lab results Labs: Lab Results 07/26/24 07/26/24 Range/Units 21:50 22:10 WBC 8.3 (4.0-11.0) 10^3/uL RBC 4.03 L (4.70-6.10) 10^6/uL Hgb 11.8 L (14.0-18.0) g/dL Hct 36.8 L (42.0-54.0) % MCV 91.3 (80.0-94.0) fL MCH 29.3 (25.9-34.0) pg MCHC 32.1 (29.9-35.2) g/dL RDW 13.1 (11.0-15.0) % Plt Count 184 (150-450) 10^3/uL MPV 11.6 (9.5-13.5) fL Neut % (Auto) 79.5 H (43.0-75.0) % Lymph % (Auto) 10.8 L (20.5-60.0) % [place] % (Auto) 7.8 (1.7-12.0) % Eos % (Auto) 1.3 (0.9-7.0) % Baso % (Auto) 0.2 (0.2-2.0) % Neut # (Auto) 6.6 H (1.4-6.5) 10^3/uL Lymph # (Auto) 0.9 L (1.2-3.8) 10^3/uL [place] # (Auto) 0.7 (0.3-0.8) 10^3/uL Eos # (Auto) 0.1 (0.0-0.7) 10^3/uL Baso # (Auto) 0.0 (0.0-0.1) 10^3/uL Abs Immat Gran (auto) 0.03 (0.00-0.03) 10^3/uL Imm/Tot Granulo (auto) 0.4 (0.0-0.5) % Sodium 139 (136-145) mmol/L Potassium 3.9 (3.5-5.1) mmol/L Chloride 101 (98-107) mmol/L Carbon Dioxide 30.7 (21.0-32.0) mmol/L Anion Gap 11.2 BUN 12.0 (7.0-18.0) mg/dL Creatinine 1.05 (0.70-1.30) mg/dL Est GFR ( Amer) >60 (>=60 mL/min/1.73m^2) Est GFR (Non-Af Amer) >60 (>=60 mL/min/1.73m^2) BUN/Creatinine Ratio 11.4 Glucose 126 H (74-106) mg/dL Calcium 8.4 L (8.5-10.1) mg/dL ECG Data Attestation: I personally reviewed and interpreted this ECG as follows: (EKG on my interpretation shows atrial fibrillation with a rate of 109) Discharge Plan Discharge Chief Complaint: Nausea/Vomiting/Diarrhea Clinical Impression: Fall Patient Disposition: Home, Self-Care Time of Disposition Decision: 22:38 Condition: Good Mode of Transportation: Private Vehicle Prescriptions / Home Meds: No Action gabapentin 300 mg capsule carbidopa-levodopa 10-100 mg tablet 1 tab metoprolol succinate 25 mg tablet extended release 24 hr 25 mg PO melatonin 5 mg capsule pantoprazole 40 mg tablet,delayed release (DR/EC) 40 mg PO losartan 25 mg tablet 25 mg finasteride 5 mg tablet 5 mg escitalopram oxalate 10 mg tablet 10 mg Xarelto 20 mg tablet 20 mg PO Q24H Print Language: Kazakh Instructions: Fall Prevention for Older Adults (ED) Referrals: RAUL DUMONT [Primary Care Provider] - 1 week
--- NOTE | 2024-07-26 21:32 | ECG_ITS ---
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
[2024-07-26 21:45] VITALS: PULSE 109
[2024-07-26 22:00] LABS: Basophils Percent Auto 0.2 % (0.2-2.0); Eosinophils Absolute Auto 0.1 10^3/uL (0.0-0.7); Eosinophils Percent Auto 1.3 % (0.9-7.0); Hematocrit 36.8 % (42.0-54.0); Hemoglobin 11.8 g/dL (14.0-18.0); Immature Granulocytes Abs Auto 0.03 10^3/uL (0.00-0.03); Immature Granulocytes Pct Auto 0.4 % (0.0-0.5); Lymphocytes Absolute Auto 0.9 10^3/uL (1.2-3.8); Lymphocytes Percent Auto 10.8 % (20.5-60.0); Mean Corpuscular HGB Conc 32.1 g/dL (29.9-35.2); Mean Corpuscular Hemoglobin 29.3 pg (25.9-34.0); Mean Corpuscular Volume 91.3 fL (80.0-94.0); Mean Platelet Volume 11.6 fL (9.5-13.5); Monocytes Absolute Auto 0.7 10^3/uL (0.3-0.8); Monocytes Percent Auto 7.8 % (1.7-12.0); Neutrophils Absolute Auto 6.6 10^3/uL (1.4-6.5); Neutrophils Percent Auto 79.5 % (43.0-75.0); Platelet Count 184 10^3/uL (150-450); Red Blood Count 4.03 10^6/uL (4.70-6.10); Red Cell Distribution Width 13.1 % (11.0-15.0); White Blood Count 8.3 10^3/uL (4.0-11.0)
[2024-07-26 22:25] LABS: Anion Gap 11.2; BUN Creatinine Ratio 11.4; Calcium 8.4 mg/dL (8.5-10.1); Carbon Dioxide 30.7 mmol/L (21.0-32.0); Chloride 101 mmol/L (98-107); Estimated GFR (African America >60 (>=60 mL/min/1.73m^2); Estimated GFR (Non-African Ame >60 (>=60 mL/min/1.73m^2); Glucose 126 mg/dL (74-106); Potassium 3.9 mmol/L (3.5-5.1); Sodium 139 mmol/L (136-145)
== END 2024-07-26 23:00 | disposition home or self-care (01) ==
PROVIDERS: Emergency Provider Emergency Medicine; PCP Family Medicine
DX: Z04.3 Encounter for examination and observation following other accident (principal); G20.A1 Parkinson's disease without dyskinesia, without mention of fluctuations; Z91.81 History of falling; R42 Dizziness and giddiness; K92.0 Hematemesis
CPT/HCPCS: 36415; 80048; 85025; 93005; 99284; G0328